=== PATIENT | female | born 1965 | race Caucasian/White ===

== ENCOUNTER 2016-12-09 13:56 | Emergency (ER) | payer MEDICAID ==
[~2016-12-09] VITALS: Wt 64.0 kg
[~2016-12-09 13:56] MED LIST: advil
[2016-12-09] MEDS ORDERED: traMADol 50 MG TAB PO ONE (18:00)
--- NOTE | 2016-12-09 19:14 | RADRPT ---
PROCEDURE: XR Lumbar Spine. CLINICAL INDICATION: Low back pain. TECHNIQUE: AP, cone-down lateral, and lateral views of the lumbar spine were obtained. COMPARISON: None. FINDINGS: Mineralization is within normal limits. Vertebral bodies are normal in height. No fracture is iden tified. Grade II spondylolisthesis related to L5 pars interarticularis defects is seen at the L5-S1 . The posterior vertebral body margin offset of L5 relative to S1 is estimated at 14 mm. The inter vertebral discs are normal in height except for L5-S1 which is severely narrowed and has endplate sc lerosis. Paraspinal contours are unremarkable. RPTAT:HJJR IMPRESSION: Spondylolytic grade II spondylolisthesis of L5-S1 with severe disk space narrowing and endplate scle rosis at this level. Physician Piedad Date Time Electronically viewed and signed by Physician Piedad on 12/09/2016 19:14 /
--- NOTE | 2016-12-09 19:15 | RADRPT ---
PROCEDURE: XR bilateral hips. CLINICAL INDICATION: back pain TECHNIQUE: AP and frog lateral views of both hips were performed. COMPARISON: None. FINDINGS: There is normal mineralization and alignment. No acute fracture or osseous lesion is identified. There are no significant degenerative changes in the hip. The soft tissues are unremarkable. RPTAT:HJJR IMPRESSION: Unremarkable bilateral hip series. Physician Piedad Date Time Electronically viewed and signed by Physician Piedad on 12/09/2016 19:15 JR/
[2016-12-09] MEDS ORDERED: TRAM50TA2 PO (19:56)
[2016-12-09] MEDS ORDERED: CYCL-319 PO (19:56)
[2016-12-09] MEDS ORDERED: IBUP-1542 PO (19:57)
[2016-12-09 20:18] VITALS: BP 152/70; PULSE 79; RESP 20; TEMP 98.1
--- NOTE | 2016-12-10 07:55 | ERD ---
ER Documentation Chief Complaint Date/Time DATE: 12/10/16 TIME: 07:40 Chief Complaint LOW BACK PAIN FROM A FALL IN SEP. NO RECENT INJURY . NO NEURO MOTOR DEF HPI Patient is 51 yr old female complaining of low back pain s/p fall in September 2016. Pt slipped and fell on her back and hips. No loss of consciousness occurred. Low back pain is radiating to her right thigh and is illicited upon ambulation. Pt states that there is a "bump" on her lower back. Pt denies any dysuria, urinary or bowel incontinence. Denies any paresthesia on the lower extremities. Denies any fever, chest pain, shortness of breath. Pt is taking motrin for symptom relief. ROS All systems reviewed and are negative except as per history of present illness. Medications Home Meds Active Scripts Ibuprofen* (Motrin*) 600 Mg Tab, 600 MG PO Q6H Y for PAIN AND OR ELEVATED TEMP, #30 TAB Prov:ERICA OROPEZA 12/09/16 Cyclobenzaprine Hcl* (Cyclobenzaprine Hcl*) 10 Mg Tablet, 10 MG PO TID, #15 TAB Prov:ERICA OROPEZA 12/09/16 Tramadol HCl (Tramadol HCl) 50 Mg Tablet, 50 MG PO Q6 Y for PAIN, #20 TAB Prov:ERICA OROPEZA 12/09/16 Reported Medications [advil] No Conflict Check 02/11/11 Allergies Allergies: Coded Allergies: No Known Allergies (Verified Allergy, Mild, 08/30/14) PMhx/Soc History of Surgery: Yes (C SECTION) Anesthesia Reaction: No Hx Neurological Disorder: No Hx Respiratory Disorders: No Hx Cardiac Disorders: Yes (HTN) Hx Psychiatric Problems: No Hx Miscellaneous Medical Probl: Yes (DM) Hx Alcohol Use: No Hx Substance Use: No Hx Tobacco Use: No Physical Exam Vitals Vital Signs Date Time Temp Pulse Resp B/P Pulse Ox O2 Delivery O2 Flow Rate FiO2 12/09/16 20:18 98.1 79 20 152/70 98 Room Air 12/09/16 14:01 98.8 99 20 160/74 97 Physical Exam Physical Exam CONST: Well-developed, well-nourished, in no acute distress. Nontoxic in appearance. HEENT: Atraumatic. Normal conjunctiva. EOM intact. TM intact. External ear is normal. Clear oropharnyx without erythema. No uvular deviation. Moist mucous membranes. Supple neck. No meningismus. No submandibular induration. RESP: Clear to auscultation bilaterally. No wheezing. CARDIO: Regular rate and rhythm, no murmurs. ABD: Soft, non tender, non distended. Normal bowel sounds. No McBurney's point tenderness. No guarding or rigidity. No peritoneal signs. SKIN: No petechiae or rashes. BACK: There is a bulge on lumbar vertebrae that is tender upon palpation. Decreased lumbar flexion due to pain. EXT: No cyanosis or edema. Distal pulses equal and bilateral. Motor strength +5. NEURO: Awake and alert, appropriate for age. Results 24 hrs Current Medications Medications (Trade) Dose Ordered Sig/Kofi Route PRN Reason Start Time Stop Time Status Last Admin Dose Admin Tramadol HCl (Ultram) 50 mg ONCE ONCE PO 12/09/16 18:00 12/09/16 18:01 DC 12/09/16 17:58 PROCEDURE: XR bilateral hips. CLINICAL INDICATION: back pain TECHNIQUE: AP and frog lateral views of both hips were performed. COMPARISON: None. FINDINGS: There is normal mineralization and alignment. No acute fracture or osseous lesion is identified. There are no significant degenerative changes in the hip. The soft tissues are unremarkable. RPTAT:HJJR IMPRESSION: Unremarkable bilateral hip series. Physician Piedad Date Time Electronically viewed and signed by Arsen Martinez Physician on 12/09/2016 19:15 PROCEDURE: XR Lumbar Spine. CLINICAL INDICATION: Low back pain. TECHNIQUE: AP, cone-down lateral, and lateral views of the lumbar spine were obtained. COMPARISON: None. FINDINGS: Mineralization is within normal limits. Vertebral bodies are normal in height. No fracture is identified. Grade II spondylolisthesis related to L5 pars interarticularis defects is seen at the L5-S1. The posterior vertebral body margin offset of L5 relative to S1 is estimated at 14 mm. The intervertebral discs are normal in height except for L5-S1 which is severely narrowed and has endplate sclerosis. Paraspinal contours are unremarkable. RPTAT:HJJR IMPRESSION: Spondylolytic grade II spondylolisthesis of L5-S1 with severe disk space narrowing and endplate sclerosis at this level. Physician Piedad Date Time Electronically viewed and signed by Arsen Martinez Physician on 12/09/2016 19:14 Procedures/MDM EMERGENCY DEPARTMENT COURSE/MEDICAL DECISION MAKING This is a 51 yr old female who comes to the emergency room secondary to complaints of lower back pain s/p fall last September. There is a bulge on the lumbar region that is tender upon palpation. Lumbar ROM is limited due to pain. The patient was given ultram in the department. On re-evaluation, the patient's symptoms improved. Hip xr and lumbar xr were done and interpreted by a radiologist. Hip xr is negative for fractures while lumbar xr showed ppondylolytic grade II spondylolisthesis of L5-S1 with severe disk space narrowing and endplate sclerosis at this level. I have discussed lumbar XR result to Dr. Husain and he advised to refer the patient to a physical therapist and an orthopedic MD. My primary diagnosis is low back pain. Secondary diagnosis is sciatica. Differential diagnoses considered but not limited to fracture, cauda equina syndrome, rheumatoid arthritis, osteoporosis. Pt is hemodynamically stable upon reassessment. The patient was discharged for outpatient management with a prescription for ultram, flexeril and ibuprofen. The patient was advised to followup with their PMD in 1-2 days and request for a PT and orthopedic referral. Pt was also advised to return to the Emergency Department if there are any new or worsening symptoms. The patient understood and agreed with the diagnosis, treatment and plan. Patient is stable for discharge at this time. Departure Diagnosis: Primary Impression: Low back pain Chronicity: chronic Back pain laterality: midline Sciatica presence: with sciatica Sciatica laterality: sciatica of right side Qualified Code: M54.41 - Chronic midline low back pain with right-sided sciatica Additional Impression: Sciatica Laterality: right Qualified Code: M54.31 - Sciatica of right side Condition: Stable Patient Instructions: Self-Care for Low Back Pain Referrals: [facility] Usted se rodríguez hecho un examen mdico de control que le indica que no est en sarah condicin que requiera tratamiento urgente en el Departamento de Emergencia. Un estudio ms profundo y el tratamiento de velez condicin pueden esperar sin ningn riesgo hasta que usted sea atendida/o en el consultorio de velez mdico o sarah cl felicitas. Es responsabilidad suya arreglar sarah aníbal para el seguimiento del marcelino. MANEJO DE CONDICIONES NO URGENTES EN EL FUTURO 1) Si usted tiene un mdico de atencin primaria: Usted debera llamar a velez mdico de atencin primaria antes de venir al departamento de emergencia. Despus de las horas de consultorio, velez doctor o velez asociado/a est disponible por telfono. El mdico o enfermero de kehinde en el servicio telefnico puede asesorarle por yessy medio para atender el problema, o marcelino contrario se puede programar sarah aníbal. 2) Si usted no tiene un mdico de atencin primaria: Llame al mdico o clnica de referencia que aparece abajo shantelle las horas de consultorio para hacer sarah aníbal para que le vean. CLINICAS: [facility] [phone] [address] [facility] [phone] [facility] [phone] [place] [id number] [phone] [place] [id number] [phone] [facility] [phone] [address] [facility] () Usted se rodríguez hecho un examen mdico de control que le indica que no est en sarah condicin que requiera tratamiento urgente en el Departamento de Emergencia. Un estudio ms profundo y el tratamiento de velez condicin pueden esperar sin ningn riesgo hasta que usted sea atendida/o en el consultorio de velez mdico o sarah cl felicitas. Es responsabilidad suya arreglar sarah aníbal para el seguimiento del marcelino. MANEJO DE CONDICIONES NO URGENTES EN EL FUTURO 1) Si usted tiene un mdico de atencin primaria: Usted debera llamar a velez mdico de atencin primaria antes de venir al departamento de emergencia. Despus de las horas de consultorio, velez doctor o velez asociado/a est disponible por telfono. El mdico o enfermero de kehinde en el servicio telefnico puede asesorarle por yessy medio para atender el problema, o marcelino contrario se puede programar sarah aníbal. 2) Si usted no tiene un mdico de atencin primaria: Llame al mdico o condado institucions de referencia que aparece abajo shantelle las horas de consultorio para hacer sarah aníbal para que le vean. SI USTED NO PUEDE PAGAR PARA AYANA UN MEDICO puede ir a: [facility] [address] [place] [address] [facility] [address] [place] [address] [facility] [address] [place] [address] [facility] [address] [place] [address] [facility] Care 7 a.m.- 11 p.m. Every Day of the Week NO APPOINTMENT OR AUTHORIZATION NEEDED Additional Instructions: Follow-up with your primary care physician in 1-2 days and request for a physical therapy consult. Return to the emergency department immediately should you have any new or worsening symptoms, uncontrolled fevers, or other unexplained symptoms. Take all medications as directed. ERICA OROPEZA Dec 10, 2016 07:51
== END 2016-12-09 20:19 | disposition home or self-care (01) ==
LOC: FTE 13:56
DX: M54.41 Lumbago with sciatica, right side (principal); I10 Essential (primary) hypertension; E11.9 Type 2 diabetes mellitus without complications
CPT/HCPCS: 72100; 73520; Z7610

== ENCOUNTER 2018-08-09 02:59 | Inpatient (IN) | END 2018-08-26 20:30 | disposition home health service (06) | DRG 853 ==

== ENCOUNTER 2018-08-27 15:17 | Inpatient (IN) | END 2018-09-10 22:55 | disposition home or self-care (01) | DRG 193 ==

== ENCOUNTER 2018-11-12 12:14 | Inpatient (IN) | payer OTHER ==
[~2018-11-12] VITALS: Ht 167.6 cm; Wt 65.0 kg
[~2018-11-12 12:14] MED LIST changes: +AMLO-147 PO; +ASPI-831 PO; +ATOR40TA68 PO; +BUPR150T11 PO; +CARV12.579 PO; +CLOP75TA28 PO; +ENOX30DI2 SC; +HYDR-3672 PO; +LISI-471 PO; +MONT10TA24 PO; +NEED-135 MC; +TRAM50TA2 PO; -advil
[2018-11-12 12:44] VITALS: Ht 167.6 cm; Wt 65.0 kg
[2018-11-12] MEDS ORDERED: FAMO-96 PO (16:07)
[2018-11-12] MEDS ORDERED: LEVO250T9 PO (16:07)
[2018-11-12] MEDS ORDERED: SUCR1TAB56 PO (16:08)
[2018-11-12] MEDS ORDERED: ZINC220C5 PO (16:08)
[2018-11-12] MEDS ORDERED: ONDA4TAB8 PO (16:09)
[2018-11-12] MEDS ORDERED: POLY17PO6 PO (16:09)
[2018-11-12] MEDS ORDERED: ASC500 PO (16:09)
[2018-11-12] MEDS ORDERED: AMIN30LI PO (16:10)
[2018-11-12] MEDS ORDERED: ENOX40DI14 SC (16:11)
[2018-11-12] MEDS ORDERED: MULT-105 PO (16:11)
[2018-11-12] MEDS ORDERED: LANT3I SC (16:12)
[2018-11-12] MEDS ORDERED: NOVO3I SC (16:12)
[2018-11-12] MEDS ORDERED: ONDANSETRON 4 MG INJ IV STA (16:21)
[2018-11-12] MEDS ORDERED: SOD CHLORIDE 0.9% 500 ML IV ONE (16:30)
[2018-11-12] MEDS ORDERED: VANCOMYCIN 1 GM (PMX) 250 ML IVPB STA (20:02)
[2018-11-12] MEDS ORDERED: CEFEPIME 1GM/50 ML (PMX) 50 ML IVPB STA (20:02)
--- NOTE | 2018-11-12 20:13 | ERD ---
ER Documentation Chief Complaint Chief Complaint ON AND OFF VOMITTING X 3 WEEKS; DENIES ABDOMINAL PAIN HPI This is a 53-year-old female with a past medical history of hypertension, hyperlipidemia, CHF, diabetes, COPD, chronic osteomyelitis with left lower extremity diabetic ulcers requiring previous debridement, now presenting from the wound care clinic for evaluation of the wounds. The patient is also here for evaluation of waxing and waning vomiting over the last 3 weeks. The patient does not currently feel nauseated, but she has had episodes of nausea at home. The patient denies abdominal pain. The patient denies changes to bowel movements or urination. The patient has been on multiple medications and multiple antibiotics over the last 3 weeks, and the patient and family are not sure if this could be related. The patient had her wounds dressed in the clinic and then sent down for further evaluation. The patient denies feeling sick recently. The patient denies fever or chills. The patient has had no headache or vision changes. The patient does not endorse neck or back pain. The patient denies lightheadedness or dizziness. The patient has had no chest pain or trouble breathing. The patient has had no focal deficits. The patient has had no weakness or numbness or tingling to the face or extremities. ROS All systems reviewed and are negative except as per history of present illness. Medications Home Meds Active Scripts Bupropion Hcl (Bupropion Hcl SR) 150 Mg Tablet.sa, 150 MG PO BID for 11 Days Prov:ERNESTINE KELLOGG MD 10/27/18 Carvedilol* (Carvedilol*) 12.5 Mg Tablet, 12.5 MG PO BID for 14 Days, TAB Prov:ERNESTINE KELLOGG MD 10/27/18 Lisinopril* (Lisinopril*) 20 Mg Tablet, 20 MG PO DAILY for 11 Days, TAB Prov:ERNESTINE KELLOGG MD 10/27/18 Montelukast Sodium* (Montelukast Sodium*) 10 Mg Tablet, 10 MG PO HS for 30 Days, #30 TAB 6 Refills Prov:ERNESTINE KELLOGG MD 10/27/18 Aspirin (Aspirin) 81 Mg Chew, 81 MG PO DAILY for 30 Days, #30 TAB 6 Refills Prov:SANCHEZ ANDERSON MD 08/26/18 Hydralazine Hcl* (Apresoline*) 50 Mg Tab, 75 MG PO TID for 30 Days, #90 TAB 6 Refills Prov:SANCHEZ ANDERSON MD 08/26/18 Atorvastatin* (Atorvastatin*) 40 Mg Tablet, 40 MG PO HS for 30 Days, #30 TAB 6 Refills Prov:SANCHEZ ANDERSON MD 08/26/18 Clopidogrel Bisulfate (Clopidogrel) 75 Mg Tablet, 75 MG PO DAILY for 30 Days, #30 TAB 6 Refills Prov:SANCHEZ ANDERSON MD 08/26/18 Reported Medications Insulin Glargine* (Lantus*) 100 Unit/Ml Soln, 24 UNIT SC QHS, #1 VIAL 11/12/18 Insulin Aspart* (Novolog Insulin Pen*) 100 Unit/Ml Soln, 8 UNIT SC WITH MEALS, EA 11/12/18 Multivitamin with Minerals (Multivitamins with Minerals) 1 Each Tablet, 1 EACH PO DAILY, TAB 11/12/18 Enoxaparin Sodium* (Lovenox*) 40 Mg/0.4 Ml Syringe, 40 MG SC DAILY, SYR 11/12/18 Amino Acids/Protein Hydrolys (PRO-STAT LIQUID) 30 Ml Liquid.pkt, 30 ML PO DAILY for SUGAR FREE 11/12/18 Ondansetron Hcl* (Zofran*) 4 Mg Tablet, 4 MG PO Q6H PRN for NAUSEA AND OR VOMITING, TAB 11/12/18 Polyethylene Glycol* (Miralax*) 17 Gm Powd.pack, 17 GM PO BID, #60 PACKET 11/12/18 Ascorbic Acid (Vitamin C) 500 Mg Tab, 500 MG PO DAILY, TAB 11/12/18 Zinc Sulfate* (Zinc Sulfate*) 220 Mg Cap, 220 MG PO DAILY, CAP 11/12/18 Sucralfate* (Carafate*) 1 Gm Tab, 1 GM PO AC MEALS AND BEDTIME, TAB 11/12/18 Famotidine* (Pepcid*) 20 Mg Tablet, 20 MG PO DAILY, #30 TAB 11/12/18 Levofloxacin* (Levofloxacin*) 250 Mg Tablet, 250 MG PO DAILY for END DATE 11/20/18, TAB 11/12/18 Amlodipine Besylate* (Amlodipine Besylate*) 10 Mg Tablet, 10 MG PO DAILY, #30 TAB 10/05/18 Discontinued Scripts Enoxaparin Sodium* (Enoxaparin Sodium*) 30 Mg/0.3 Ml Syringe, 30 MG SC DAILY for 14 Days Prov:ERNESTINE KELLOGG MD 10/27/18 [place], Insulin Disposable (Fidelia Pen Needle) 1 Each Dis.needle, EACH [facility] MEALS AND BEDTIME for diabetes mellitus, #120 6 Refills Prov:SANCHEZ ANDERSON MD 08/26/18 Tramadol HCl (Tramadol HCl) 50 Mg Tablet, 50 MG PO Q6 PRN for PAIN, #20 TAB Prov:ERICA OROPEZA 12/09/16 Allergies Allergies: Coded Allergies: No Known Allergies (Verified Allergy, Mild, 11/12/18) PMhx/Soc History of Surgery: Yes (debridement to left lower ext) Anesthesia Reaction: No Hx Neurological Disorder: No Hx Respiratory Disorders: Yes ( COPD) Hx Cardiac Disorders: Yes (Hypertension, hyperlipidemia, diabetes, CHF) Hx Psychiatric Problems: No Hx Miscellaneous Medical Probl: No Hx Alcohol Use: No Hx Substance Use: No Hx Tobacco Use: No Smoking Status: Never smoker FmHx Family History: diabetes Physical Exam Vitals Vital Signs Date Temp Pulse Resp B/P (MAP) Pulse Ox O2 O2 Flow FiO2 Time Delivery Rate 11/12/18 78 14 168/78 98 Room Air 18:40 (108) 11/12/18 98.1 69 20 165/77 100 Room Air 17:59 (106) 11/12/18 96.7 60 24 144/75 95 12:44 (98) Physical Exam Const: No apparent distress, well-developed, well-nourished Head: Normocephalic, Atraumatic Eyes: Normal Conjunctiva. Extraocular movements intact. Pupils equal, round and reactive to light ENT: Normal External Ears, Nose and Mouth. Neck: Full range of motion. No meningismus. Resp: Clear to auscultation bilaterally, No wheezes, rales or rhonchi Cardio: Regular rate and rhythm. No murmurs, rubs or gallops Abd: Soft, non tender, non distended. Normal bowel sounds Skin: No petechiae or rashes Back: No midline tenderness. No CVA tenderness Ext: No cyanosis. Diabetic ulcers to the left foot. Bilateral lower extremity 1+ pitting edema. Neur: Awake and alert, oriented 4. Cranial nerves intact. No facial droop. Normal strength, sensation and coordination. Psych: Normal Mood and Affect Result Diagram: 11/12/18 1535 11/12/18 1535 Results 24 hrs Laboratory Tests Test 11/12/18 15:35 11/12/18 17:40 11/12/18 18:27 White Blood Count 6.7 10^3/ul Red Blood Count 4.39 10^6/ul Hemoglobin 12.2 g/dl Hematocrit 37.8 % Mean Corpuscular Volume 86.1 fl Mean Corpuscular Hemoglobin 27.8 pg Mean Corpuscular 32.3 g/dl Hemoglobin Concent Red Cell Distribution Width 13.3 % Platelet Count 235 10^3/UL Mean Platelet Volume 11.3 fl Immature Granulocytes % 0.300 % Neutrophils % 75.9 % Lymphocytes % 17.1 % Monocytes % 5.7 % Eosinophils % 0.7 % Basophils % 0.3 % Nucleated Red Blood Cells % 0.0 /100WBC Immature Granulocytes # 0.020 10^3/ul Neutrophils # 5.1 10^3/ul Lymphocytes # 1.1 10^3/ul Monocytes # 0.4 10^3/ul Eosinophils # 0.1 10^3/ul Basophils # 0.0 10^3/ul Nucleated Red Blood Cells # 0.0 10^3/ul Sodium Level 140 mmol/L Potassium Level 3.1 mmol/L Chloride Level 103 mmol/L Carbon Dioxide Level 30 mmol/L Anion Gap 7 Blood Urea Nitrogen 15 mg/dl Creatinine 1.25 mg/dl Est Glomerular Filtrat 44 mL/min Rate mL/min Glucose Level 135 mg/dl Calcium Level 8.9 mg/dl Total Bilirubin 0.2 mg/dl Direct Bilirubin 0.00 mg/dl Indirect Bilirubin 0.2 mg/dl Aspartate Amino 17 IU/L Transf (AST/SGOT) Alanine 16 IU/L Aminotransferase (ALT/SGPT) Alkaline Phosphatase 182 IU/L Troponin I < 0.012 ng/ml Total Protein 6.9 g/dl Albumin 3.2 g/dl Globulin 3.70 g/dl Albumin/Globulin Ratio 0.86 Lipase 29 U/L Urine Color YELLOW Urine Clarity SLIGHTLY CLOUDY Urine pH 6.0 Urine Specific [place] 1.013 Urine Ketones NEGATIVE mg/dL Urine Nitrite NEGATIVE mg/dL Urine Bilirubin NEGATIVE mg/dL Urine Urobilinogen NEGATIVE mg/dL Urine Leukocyte Esterase TRACE Radha/ul Urine Microscopic RBC 9 /HPF Urine Microscopic WBC 11 /HPF Urine Squamous Epithelial Cells MODERATE /HPF Urine Yeast (Budding) FEW /HPF Urine Hemoglobin NEGATIVE mg/dL Urine Glucose 1+ mg/dL Urine Total Protein 3+ mg/dl C-Reactive Protein 0.6 mg/dl Current Medications Medications Dose Sig/Kofi Start Time Status Last (Trade) Ordered Route PRN Stop Time Admin Dose Reason Admin Sodium 500 ml @ Q1H ONCE 11/12/18 DC 11/12/18 Chloride 500 mls/hr IV 16:30 16:58 11/12/18 17:29 Ondansetron 4 mg ONCE STAT 11/12/18 DC 11/12/18 HCl (Zofran IV 16:21 16:57 Inj) 11/12/18 16:50 Vancomycin 250 ml @ ONCE STAT 11/12/18 HCl 125 mls/hr IVPB 20:02 11/12/18 22:01 Cefepime HCl 50 ml @ ONCE STAT 11/12/18 DC 11/12/18 100 mls/hr IVPB 20:02 20:16 11/12/18 20:31 Ondansetron 4 mg BRIDGE ORDER 11/12/18 HCl (Zofran PRN IV 20:30 Inj) NAUSEA/VOMITI 11/13/18 20:29 NG 650 mg ER BRIDGE 11/12/18 Acetaminophen PRN PO 20:30 (Tylenol .MILD PAIN 11/13/18 20:29 Tab) 1-3 OR TEMP Procedures/MDM MDM The patient's presentation warrants further investigation. Previous medical records, if available, were reviewed. LABS The patient's laboratory testing was obtained and reviewed. No emergent treatment was required unless described below. CBC: No E/o of systemic infection or severe anemia or thrombocytopenia CMP: No E/o severe acidosis or alkalosis or renal failure or diabetic ketoacidosis. Mild hypokalemia, nonemergent. Elevated alkaline phosphatase, likely reactive, otherwise no liver disease. Lipase: No E/o pancreatitis Troponin: No E/o acute ischemia Urine: E/o acute infection with hematuria CRP: Unremarkable EKG EKG read by me: Rate/Rhythm: Regular rate and rhythm at a rate of 75 bpm Intervals: Normal [place]: Right axis deviation Impression: No evidence of acute ischemia or arrhythmia IMAGING Imaging and Radiology interpretation reviewed. CXR FINDINGS: Mild central venous congestion with bibasilar atelectasis and small right pleural effusion. No pneumothorax. Mild cardiomegaly. Right upper extremity PICC line tip is over the cavoatrial junction. Calcified atherosclerosis of the thoracic aorta. IMPRESSION: Cardiomegaly with mild central venous congestion and small right pleural effusion. Right upper extremity PICC line is in good position. Electronically viewed and signed by Physician Kwesi on 11/12/2018 17:17 XR R Foot 1. Suspected bipartite medial sesamoid bone for the great toe. Recommend correlation with point tenderness to rule out acute fracture of the sesamoid bone. No other evidence of acute fracture is identified in the foot. 2. Mild osteoarthritis of the first MTP joint and mild soft tissue swelling. Electronically viewed and signed by Mariusz Campbell Physician on 11/12/2018 17:02 XR L Foot IMPRESSION: Findings suggesting osteomyelitis at the fifth MTP joint with overlying soft tissue wound/ulcer. Question early osteomyelitis at the first MTP joint with overlying soft tissue wound/ulcer. Erosive changes at the midfoot with midfoot collapse, widening of the Lisfranc interval, and fixation pins. Findings may be partially due to neuropathic arthropathy, however suspect superimposed osteomyelitis given the overlying dorsal wound/ulcer. Electronically viewed and signed by Physician Kwesi on 11/12/2018 17:17 TREATMENT/DISPOSITION The patient presents with chronic but progressively worsening osteomyelitis of the left foot. I spoke with the patient's dental specialist, Dr. Garcia, who recommended admission for IV antibiotics and likely redebridement of the wounds. The patient was treated with vancomycin and cefepime in the emergency department. The patient does not have evidence of sepsis and I do not feel the patient requires a full septic workup. The patient does have evidence of urinary tract infection which will be covered by the broad-spectrum antibiotics initiated for her osteomyelitis. The patient was worked up for his persistent nausea and vomiting. The patient did not vomit in the emergency department. She was given IV fluids and a dose of Zofran in the ER. A urinary tract infection is a possible etiology for this. The patient's workup is otherwise reassuring. I do not see any metabolic etiologies. I do not see evidence of a cardiovascular pathology. I do not suspect a neurologic pathology. The patient is not dizzy. I have low suspicion for vertigo. ADMISSION At this time, I feel that the patient requires admission for further evaluation and management. The patient will be admitted to panel in accordance with the patient's insurance. The patient was accepted by Dr. Medellin at 8:10 PM on November 12, 2018. Dr. Garcia was called to discuss the case. He or his partner will see the patient in the hospital for likely debridement. Disclaimer: Inadvertent spelling and grammatical errors are likely due to EHR/dictation software use and do not reflect on the overall quality of patient care. Note that the electronic time recorded on this note does not necessarily reflect the actual time of the patient encounter. Departure Diagnosis: Primary Impression: Chronic osteomyelitis involving left ankle and foot Additional Impressions: Urinary tract infection Urinary tract infection type: acute cystitis Hematuria presence: with hematuria Qualified Codes: N30.01 - Acute cystitis with hematuria Hypokalemia Elevated alkaline phosphatase level Nausea & vomiting Vomiting type: unspecified Vomiting Intractability: non-intractable Qualified Codes: R11.2 - Nausea with vomiting, unspecified Condition: MACIEL Samuel MD Nov 12, 2018 20:13
[2018-11-12] MEDS ORDERED: ONDANSETRON 4 MG INJ IV PRN (20:30)
[2018-11-12] MEDS ORDERED: ACETAMINOPHEN 325 MG TAB PO PRN ×2 (20:30→22:00)
[2018-11-12] MEDS ORDERED: HYDROCODONE/APAP (5/325) TAB PO PRN (22:00)
[2018-11-12] MEDS ORDERED: NACL 0.9% 3 ML SYG IV SCH (22:00)
[2018-11-12] MEDS ORDERED: VANCOMYCIN IV PER PHARMACY XX SCH (22:00)
[2018-11-12] MEDS ORDERED: POTASSIUM CHLORIDE 20 MEQ POWDER FOR ORAL SOLN PO ONE (22:00)
--- NOTE | 2018-11-12 22:44 | HP ---
Date/Time of Note Date/Time of Note DATE: 11/12/18 TIME: 22:44 Assessment/Plan VTE Prophylaxis Pharmacological prophylaxis: other Lines/Catheters IV Catheter Type (from Nrs): PICC Line Central line still needed: Yes Assessment/Plan Hospital Course Objective Physical exam General: Patient is laying in bed and answers questions appropriately Mentation: Patient is alert and oriented 4, Head: Normocephalic atraumatic Eyes: EOMI, pupils reactive to light Neck: Supple, nontender, midline Respiratory: Clear to auscultation bilaterally Cardiovascular: regular rate, no obvious murmurs Gastrointestinal: non-tender to palpation, bowel sounds heard. Neurological: Moves all extremities spontaneously Skin: Left foot bandaged, CDI Assessment and plan Chronic osteomyelitis -IV antibiotic -Podiatry to see patient tomorrow, per ER physician, planning on OR debridement -N.p.o. after midnight, hold aspirin Plavix for surgery -IV fluids - Nausea -Intermittent, patient states this happens in the morning, -Protonix -Zofran as needed -Reassess need of possible GI evaluation in the a.m. per day team Dyslipidemia -Resume home meds when able Peripheral arterial disease -Continue home meds when able, hold aspirin and Plavix for now due to possible impending surgery Hypertension -Continue home meds when able Diabetes mellitus -Insulin Disposition -Podiatry to perform debridement in OR, reassess complaint of intermittent nausea in the a.m. Result Diagram: 11/12/18 1535 11/12/18 1535 Results 24hrs Laboratory Tests Test 11/12/18 15:35 11/12/18 17:40 11/12/18 18:27 White Blood Count 6.7 # Red Blood Count 4.39 # Hemoglobin 12.2 # Hematocrit 37.8 # Mean Corpuscular Volume 86.1 Mean Corpuscular Hemoglobin 27.8 L Mean Corpuscular 32.3 Hemoglobin Concent Red Cell Distribution Width 13.3 Platelet Count 235 Mean Platelet Volume 11.3 H Immature Granulocytes % 0.300 Neutrophils % 75.9 Lymphocytes % 17.1 Monocytes % 5.7 Eosinophils % 0.7 Basophils % 0.3 Nucleated Red Blood Cells % 0.0 Immature Granulocytes # 0.020 Neutrophils # 5.1 Lymphocytes # 1.1 Monocytes # 0.4 Eosinophils # 0.1 Basophils # 0.0 Nucleated Red Blood Cells # 0.0 Sodium Level 140 Potassium Level 3.1 L Chloride Level 103 Carbon Dioxide Level 30 Anion Gap 7 Blood Urea Nitrogen 15 Creatinine 1.25 H Est Glomerular Filtrat 44 L Rate mL/min Glucose Level 135 Calcium Level 8.9 Total Bilirubin 0.2 Direct Bilirubin 0.00 Indirect Bilirubin 0.2 Aspartate Amino 17 Transf (AST/SGOT) Alanine 16 Aminotransferase (ALT/SGPT) Alkaline Phosphatase 182 H Troponin I < 0.012 Total Protein 6.9 Albumin 3.2 L Globulin 3.70 H Albumin/Globulin Ratio 0.86 Lipase 29 Urine Color YELLOW Urine Clarity SLIGHTLY CLOUDY A Urine pH 6.0 Urine Specific [place] 1.013 Urine Ketones NEGATIVE Urine Nitrite NEGATIVE Urine Bilirubin NEGATIVE Urine Urobilinogen NEGATIVE Urine Leukocyte Esterase TRACE A Urine Microscopic RBC 9 H Urine Microscopic WBC 11 H Urine Squamous MODERATE Epithelial Cells Urine Yeast (Budding) FEW A Urine Hemoglobin NEGATIVE Urine Glucose 1+ H Urine Total Protein 3+ H Erythrocyte Sedimentation Rate 25 C-Reactive Protein 0.6 HPI/ROS Admit Date/Time Admit Date/Time Hx of Present Illness Patient is a female with a past medical history significant for chronic osteomyelitis, diabetes, questionable CHF, peripheral vascular disease, hypertension who presents to [facility] after being sent by her paper handler, for further debridement in the OR. Further inquiry resulted in patient stating that she has morning nausea for approximately the past 3 weeks, currently no nausea or vomiting. Patient has no acute complaints except for chronic discomfort and some pain in her chronic lower left lower extremity wound. Patient denies chest pain, shortness of breath, dizziness, nausea, vomiting, abdominal pain PMH/Family/Social Past Medical History Medications Current Medications Ondansetron HCl (Zofran Inj) 4 mg BRIDGE ORDER PRN IV NAUSEA/VOMITING; Start 11/12/18 at 20:30; Stop 11/13/18 at 20:29 Acetaminophen (Tylenol Tab) 650 mg ER BRIDGE PRN PO .MILD PAIN 1-3 OR TEMP; Start 11/12/18 at 20:30; Stop 11/13/18 at 20:29 Cefepime HCl 50 ml @ 100 mls/hr Q12 IVPB ; Start 11/13/18 at 09:00 Vancomycin HCl (Vanco Iv Per Pharmacy) VANCOMYCIN PER PHARMACY PER PROTOCOL XX ; Start 11/12/18 at 22:00 Amlodipine Besylate (Norvasc) 10 mg DAILY PO ; Start 11/13/18 at 09:00 Ascorbic Acid (Vitamin C) 500 mg DAILY PO ; Start 11/13/18 at 09:00 Atorvastatin Calcium (Lipitor) 40 mg HS PO ; Start 11/13/18 at 21:00 Carvedilol (Coreg) 12.5 mg BID PO ; Start 11/12/18 at 22:00 Famotidine (Pepcid) 20 mg DAILY PO ; Start 11/13/18 at 09:00 Hydralazine HCl (Apresoline) 75 mg TID PO ; Start 11/13/18 at 09:00 Lisinopril (Zestril) 20 mg DAILY PO ; Start 11/13/18 at 09:00 Montelukast Sodium (Singulair) 10 mg HS PO ; Start 11/13/18 at 21:00 Sodium Chloride 1,000 ml @ 50 mls/hr Q20H IV ; Start 11/12/18 at 22:00 IV Flush (NS 3 ml) 3 ml PER PROTOCOL IV ; Start 11/12/18 at 22:00 Ondansetron HCl (Zofran Inj) 4 mg Q6H PRN IV NAUSEA/VOMITING; Start 11/12/18 at 22:00 Acetaminophen (Tylenol Tab) 650 mg Q6H PRN PO .PAIN 1-3 OR TEMP; Start 11/12/18 at 22:00 Acetaminophen/ Hydrocodone Bitart ([place] (5/325)) 1 tab Q6H PRN PO .PAIN 4-6; Start 11/12/18 at 22:00 Morphine Sulfate (morphine) 2 mg Q4H PRN IV .PAIN 7-10; Start 11/12/18 at 22:00 Vancomycin/Sodium Chloride 250 ml @ 125 mls/hr Q12H IVPB ; Start 11/13/18 at 09:00 Coded Allergies: No Known Allergies (Verified Allergy, Mild, 11/12/18) Past Surgical History Past Surgical Hx: other Family History Significant Family History: no pertinent family hx Social History Smoking Status: Never smoker Exam/Review of Systems Vital Signs Vitals Vital Signs Date Temp Pulse Resp B/P (MAP) Pulse Ox O2 O2 Flow FiO2 Time Delivery Rate 11/12/18 90 16 160/84 98 Room Air 20:40 (109) 11/12/18 98.1 17:59 DIGNA ANDRADE Nov 12, 2018 22:44
[2018-11-12] MEDS: SOD CHLORIDE 0.9% 1,000 ML IV SCH (22:48)
[2018-11-12] MEDS ORDERED: PANTOPRAZOLE 40 MG INJ IV ONE (23:00)
[2018-11-13] VITALS (19 sets, daily range): BP systolic 139–169; BP diastolic 74–86; PULSE 72–82; RESP 13–19
[2018-11-13] MEDS ORDERED: LABETALOL HCL 20MG INJ IV ONE
[2018-11-13] MEDS ORDERED: ACCU-CHEK XX SCH (02:00)
[2018-11-13] MEDS ORDERED: Insulin NOVOLOG SS MILD Algorithm (NPO/TPN/ENTERAL FEEDS) SC SCH (05:00)
[2018-11-13] MEDS ORDERED: INSULIN ASPART [NOVOLOG] 3 ML PEN SC SCH ×3 (05:00→07:30)
[2018-11-13] MEDS: PANTOPRAZOLE 40 MG INJ IV SCH (05:21)
[2018-11-13] MEDS ORDERED: PENDING SANTYL ORDER FOR WOUND CARE XX PRN (06:30)
[2018-11-13] MEDS: Insulin NOVOLOG SS MILD Algorithm (SS with meals and bedtime) SC SCH ×2 (07:30→12:07)
[2018-11-13] MEDS: CEFEPIME 1GM/50 ML (PMX) 50 ML IVPB SCH ×2 (08:05→21:55)
[2018-11-13] MEDS: LISINOPRIL 20 MG TAB PO SCH (08:05)
[2018-11-13] MEDS: ASCORBIC ACID 500 MG TAB PO SCH (08:06)
[2018-11-13] MEDS: AMLODIPINE 10 MG TAB PO SCH (08:06)
[2018-11-13] MEDS ORDERED: FAMOTIDINE 20 MG TAB PO SCH (09:00)
[2018-11-13] MEDS ORDERED: VANCOMYCIN 750 MG (PMX) 250 ML IVPB SCH (09:00)
--- NOTE | 2018-11-13 10:15 | PSY ---
Date/Time of Note Date/Time of Note DATE: 11/13/18 TIME: 10:11 Psychiatric Subjective Eval Subjective Evaluation Chief Complaint: ON AND OFF VOMITTING X 3 WEEKS; DENIES ABDOMINAL PAIN History of present illness Patient is a female with a past medical history of chronic osteom yelitis, diabetes, CHF, peripheral vascular disease and hypertension and debridement. Medical history Problems Medical Problems: (1) Abdominal pain Status: Acute (2) Asthma Status: Chronic (3) Asymptomatic hypertensive urgency Status: Acute (4) Chronic osteomyelitis involving left ankle and foot Status: Acute (5) Deep venous thrombosis of left upper extremity Status: Acute (6) Diabetes Status: Acute (7) Diabetes mellitus type 2 in nonobese Status: Chronic (8) Elevated alkaline phosphatase level Status: Acute (9) Essential hypertension Status: Chronic (10) Foot osteomyelitis, left Status: Acute (11) Hyperglycemia Status: Acute (12) Hypokalemia Status: Acute (13) Hypokalemia Status: Acute (14) Hypoxia Status: Acute (15) Iron deficiency anemia Status: Chronic (16) Line sepsis Status: Acute (17) Low back pain Status: Acute (18) Low back pain Status: Acute (19) Nausea & vomiting Status: Acute (20) Non-STEMI (non-ST elevated myocardial infarction) Status: Acute (21) Noncompliance with medication regimen Status: Acute (22) Pneumonia Status: Acute (23) Sciatica Status: Acute (24) Sciatica Status: Acute (25) Urinary tract infection Status: Acute Allergies: Coded Allergies: No Known Allergies (Verified Allergy, Mild, 11/12/18) Psychiatric Objective Eval Mental Status Examination: Laboratory Results Laboratory Tests Test 11/12/18 15:35 11/12/18 17:40 11/12/18 18:27 11/13/18 05:15 White Blood Count 6.7 10^3/ul Red Blood Count 4.39 10^6/ul Hemoglobin 12.2 g/dl Hematocrit 37.8 % Mean Corpuscular 86.1 fl Volume Mean Corpuscular 27.8 pg Hemoglobin Mean Corpuscular 32.3 g/dl Hemoglobin Concen t Red Cell 13.3 % Distribution Width Platelet Count 235 10^3/UL Mean Platelet 11.3 fl Volume Immature 0.300 % Granulocytes % Neutrophils % 75.9 % Lymphocytes % 17.1 % Monocytes % 5.7 % Eosinophils % 0.7 % Basophils % 0.3 % Nucleated Red 0.0 /100WBC Blood Cells % Immature 0.020 10^3/ul Granulocytes # Neutrophils # 5.1 10^3/ul Lymphocytes # 1.1 10^3/ul Monocytes # 0.4 10^3/ul Eosinophils # 0.1 10^3/ul Basophils # 0.0 10^3/ul Nucleated Red 0.0 10^3/ul Blood Cells # Sodium Level 140 mmol/L Potassium Level 3.1 mmol/L Chloride Level 103 mmol/L Carbon Dioxide 30 mmol/L Level Anion Gap 7 Blood Urea 15 mg/dl Nitrogen Creatinine 1.25 mg/dl Est Glomerular 44 mL/min Filtrat Rate mL/min Glucose Level 135 mg/dl Calcium Level 8.9 mg/dl Total Bilirubin 0.2 mg/dl Direct Bilirubin 0.00 mg/dl Indirect 0.2 mg/dl Bilirubin Aspartate Amino 17 IU/L Transf (AST/SGOT) Alanine 16 IU/L Aminotransferase (ALT/SGPT) Alkaline 182 IU/L Phosphatase Troponin I < 0.012 ng/ml Total Protein 6.9 g/dl Albumin 3.2 g/dl Globulin 3.70 g/dl Albumin/Globulin 0.86 Ratio Lipase 29 U/L Urine Color YELLOW Urine Clarity SLIGHTLY CLOUDY Urine pH 6.0 Urine Specific 1.013 [place] Urine Ketones NEGATIVE mg/dL Urine Nitrite NEGATIVE mg/dL Urine Bilirubin NEGATIVE mg/dL Urine NEGATIVE mg/dL Urobilinogen Urine Leukocyte TRACE Radha/ul Esterase Urine Microscopic 9 /HPF RBC Urine Microscopic 11 /HPF WBC Urine Squamous MODERATE /HPF Epithelial Cells Urine Yeast FEW /HPF (Budding) Urine Hemoglobin NEGATIVE mg/dL Urine Glucose 1+ mg/dL Urine Total 3+ mg/dl Protein Erythrocyte 25 mm/Hr Sedimentation Rate C-Reactive 0.6 mg/dl Protein Bedside Glucose 222 mg/dL Test 11/13/18 06:41 11/13/18 07:54 White Blood Count 6.4 10^3/ul Red Blood Count 3.78 10^6/ul Hemoglobin 10.6 g/dl Hematocrit 33.3 % Mean Corpuscular 88.1 fl Volume Mean Corpuscular 28.0 pg Hemoglobin Mean Corpuscular 31.8 g/dl Hemoglobin Concen t Red Cell 13.3 % Distribution Width Platelet Count 181 10^3/UL Mean Platelet 11.4 fl Volume Immature 0.200 % Granulocytes % Neutrophils % 76.1 % Lymphocytes % 14.0 % Monocytes % 8.2 % Eosinophils % 1.2 % Basophils % 0.3 % Nucleated Red 0.0 /100WBC Blood Cells % Immature 0.010 10^3/ul Granulocytes # Neutrophils # 4.9 10^3/ul Lymphocytes # 0.9 10^3/ul Monocytes # 0.5 10^3/ul Eosinophils # 0.1 10^3/ul Basophils # 0.0 10^3/ul Nucleated Red 0.0 10^3/ul Blood Cells # Sodium Level 142 mmol/L Potassium Level 3.3 mmol/L Chloride Level 107 mmol/L Carbon Dioxide 30 mmol/L Level Anion Gap 5 Blood Urea 16 mg/dl Nitrogen Creatinine 1.10 mg/dl Est Glomerular 52 mL/min Filtrat Rate mL/min Glucose Level 189 mg/dl Hemoglobin A1c 6.1 % Calcium Level 8.3 mg/dl Magnesium Level 1.7 mg/dl Total Bilirubin 0.1 mg/dl Direct Bilirubin 0.00 mg/dl Indirect 0.1 mg/dl Bilirubin Aspartate Amino 13 IU/L Transf (AST/SGOT) Alanine 11 IU/L Aminotransferase (ALT/SGPT) Alkaline 146 IU/L Phosphatase Total Protein 5.7 g/dl Albumin 2.6 g/dl Globulin 3.10 g/dl Albumin/Globulin 0.83 Ratio Bedside Glucose 132 mg/dL ALYSON ZUÑIGA NP Nov 13, 2018 10:14
--- NOTE | 2018-11-13 12:24 | PN ---
Date/Time of Note Date/Time of Note DATE: 11/13/18 TIME: 12:18 Assessment/Plan VTE Prophylaxis Risk score (from Nsg)>0 risk: 4 SCD applied (from Nsg): Yes Pharmacological prophylaxis: other Lines/Catheters IV Catheter Type (from Nrsg): PICC Line Central line still needed: Yes Assessment/Plan Hospital Course S: Patient appears to be more compliant with taking her medicines this morning, seen by psychiatry team earlier today. Waiting to be seen by podiatry team. Objective VS - see below Physical exam General: lying in bed, answers questions appropriately Mentation: Patient is alert and oriented 4, Head: Normocephalic atraumatic Eyes: EOMI, pupils reactive to light Neck: Supple, nontender, midline Respiratory: Clear to auscultation bilaterally Cardiovascular: regular rate, no obvious murmurs Gastrointestinal: non-tender to palpation, bowel sounds heard. Neurological: Moves all extremities spontaneously Skin: Left foot bandaged, CDI Assessment and plan: 53-year-old female with a past medical history of hypertension, hyperlipidemia, CHF, diabetes, COPD, chronic osteomyelitis with left lower extremity diabetic ulcers requiring previous debridement, presenting from the wound care clinic for evaluation of the wounds. # Chronic osteomyelitis -left foot/lower extremity -Continue IV antibiotic, IV fluids -Follow-up final recommendations from podiatry -likely planning on OR debridement -N.p.o. after midnight, hold aspirin Plavix for surgery # Nausea-Intermittent, patient states this appears to happen in the mornings. -For now continue Protonix -Zofran as needed -Reassess need of possible GI evaluation # Dyslipidemia -Resume home meds when able # Peripheral arterial disease -Continue home meds when able, holding aspirin and Plavix for now due to possible impending surgery # Hypertension -presently stable -Continue home meds when able # Diabetes mellitus -Monitor sugars, continue sliding scale insulin Result Diagram: 11/13/18 0641 11/13/18 0641 Results 24hrs Laboratory Tests Test 11/12/18 15:35 11/12/18 17:40 11/12/18 18:27 11/13/18 05:15 White Blood Count 6.7 # Red Blood Count 4.39 # Hemoglobin 12.2 # Hematocrit 37.8 # Mean Corpuscular 86.1 Volume Mean Corpuscular 27.8 L Hemoglobin Mean Corpuscular 32.3 Hemoglobin Concen t Red Cell 13.3 Distribution Width Platelet Count 235 Mean Platelet 11.3 H Volume Immature 0.300 Granulocytes % Neutrophils % 75.9 Lymphocytes % 17.1 Monocytes % 5.7 Eosinophils % 0.7 Basophils % 0.3 Nucleated Red 0.0 Blood Cells % Immature 0.020 Granulocytes # Neutrophils # 5.1 Lymphocytes # 1.1 Monocytes # 0.4 Eosinophils # 0.1 Basophils # 0.0 Nucleated Red 0.0 Blood Cells # Sodium Level 140 Potassium Level 3.1 L Chloride Level 103 Carbon Dioxide 30 Level Anion Gap 7 Blood Urea 15 Nitrogen Creatinine 1.25 H Est Glomerular 44 L Filtrat Rate mL/min Glucose Level 135 Calcium Level 8.9 Total Bilirubin 0.2 Direct Bilirubin 0.00 Indirect 0.2 Bilirubin Aspartate Amino 17 Transf (AST/SGOT) Alanine 16 Aminotransferase (ALT/SGPT) Alkaline 182 H Phosphatase Troponin I < 0.012 Total Protein 6.9 Albumin 3.2 L Globulin 3.70 H Albumin/Globulin 0.86 Ratio Lipase 29 Urine Color YELLOW Urine Clarity SLIGHTLY CLOUDY A Urine pH 6.0 Urine Specific 1.013 [place] Urine Ketones NEGATIVE Urine Nitrite NEGATIVE Urine Bilirubin NEGATIVE Urine NEGATIVE Urobilinogen Urine Leukocyte TRACE A Esterase Urine Microscopic 9 H RBC Urine Microscopic 11 H WBC Urine Squamous MODERATE Epithelial Cells Urine Yeast FEW A (Budding) Urine Hemoglobin NEGATIVE Urine Glucose 1+ H Urine Total 3+ H Protein Erythrocyte 25 Sedimentation Rate C-Reactive 0.6 Protein Bedside Glucose 222 H Test 11/13/18 06:41 11/13/18 07:54 11/13/18 12:04 White Blood Count 6.4 Red Blood Count 3.78 L Hemoglobin 10.6 L Hematocrit 33.3 L Mean Corpuscular 88.1 Volume Mean Corpuscular 28.0 L Hemoglobin Mean Corpuscular 31.8 L Hemoglobin Concen t Red Cell 13.3 Distribution Width Platelet Count 181 # Mean Platelet 11.4 H Volume Immature 0.200 Granulocytes % Neutrophils % 76.1 Lymphocytes % 14.0 L Monocytes % 8.2 Eosinophils % 1.2 Basophils % 0.3 Nucleated Red 0.0 Blood Cells % Immature 0.010 Granulocytes # Neutrophils # 4.9 Lymphocytes # 0.9 Monocytes # 0.5 Eosinophils # 0.1 Basophils # 0.0 Nucleated Red 0.0 Blood Cells # Sodium Level 142 Potassium Level 3.3 L Chloride Level 107 Carbon Dioxide 30 Level Anion Gap 5 Blood Urea 16 Nitrogen Creatinine 1.10 H Est Glomerular 52 L Filtrat Rate mL/min Glucose Level 189 Hemoglobin A1c 6.1 H Calcium Level 8.3 L Magnesium Level 1.7 Total Bilirubin 0.1 L Direct Bilirubin 0.00 Indirect 0.1 Bilirubin Aspartate Amino 13 L Transf (AST/SGOT) Alanine 11 L Aminotransferase (ALT/SGPT) Alkaline 146 H Phosphatase Total Protein 5.7 #L Albumin 2.6 L Globulin 3.10 Albumin/Globulin 0.83 Ratio Bedside Glucose 132 167 Exam/Review of Systems Exam Vitals Vital Signs Date Temp Pulse Resp B/P (MAP) Pulse Ox O2 O2 Flow FiO2 Time Delivery Rate 11/13/18 98.4 81 17 169/80 96 Room Air 07:40 (109) 11/13/18 2.0 00:20 Intake and Output 11/12/18 11/12/18 11/13/18 1515:00 23:00 07:00 IntakeIntake Total 550 ml BalanceBalance 550 ml Results Results 24hrs Laboratory Tests Test 11/12/18 15:35 11/12/18 17:40 11/12/18 18:27 11/13/18 05:15 White Blood Count 6.7 # Red Blood Count 4.39 # Hemoglobin 12.2 # Hematocrit 37.8 # Mean Corpuscular 86.1 Volume Mean Corpuscular 27.8 L Hemoglobin Mean Corpuscular 32.3 Hemoglobin Concen t Red Cell 13.3 Distribution Width Platelet Count 235 Mean Platelet 11.3 H Volume Immature 0.300 Granulocytes % Neutrophils % 75.9 Lymphocytes % 17.1 Monocytes % 5.7 Eosinophils % 0.7 Basophils % 0.3 Nucleated Red 0.0 Blood Cells % Immature 0.020 Granulocytes # Neutrophils # 5.1 Lymphocytes # 1.1 Monocytes # 0.4 Eosinophils # 0.1 Basophils # 0.0 Nucleated Red 0.0 Blood Cells # Sodium Level 140 Potassium Level 3.1 L Chloride Level 103 Carbon Dioxide 30 Level Anion Gap 7 Blood Urea 15 Nitrogen Creatinine 1.25 H Est Glomerular 44 L Filtrat Rate mL/min Glucose Level 135 Calcium Level 8.9 Total Bilirubin 0.2 Direct Bilirubin 0.00 Indirect 0.2 Bilirubin Aspartate Amino 17 Transf (AST/SGOT) Alanine 16 Aminotransferase (ALT/SGPT) Alkaline 182 H Phosphatase Troponin I < 0.012 Total Protein 6.9 Albumin 3.2 L Globulin 3.70 H Albumin/Globulin 0.86 Ratio Lipase 29 Urine Color YELLOW Urine Clarity SLIGHTLY CLOUDY A Urine pH 6.0 Urine Specific 1.013 [place] Urine Ketones NEGATIVE Urine Nitrite NEGATIVE Urine Bilirubin NEGATIVE Urine NEGATIVE Urobilinogen Urine Leukocyte TRACE A Esterase Urine Microscopic 9 H RBC Urine Microscopic 11 H WBC Urine Squamous MODERATE Epithelial Cells Urine Yeast FEW A (Budding) Urine Hemoglobin NEGATIVE Urine Glucose 1+ H Urine Total 3+ H Protein Erythrocyte 25 Sedimentation Rate C-Reactive 0.6 Protein Bedside Glucose 222 H Test 11/13/18 06:41 11/13/18 07:54 11/13/18 12:04 White Blood Count 6.4 Red Blood Count 3.78 L Hemoglobin 10.6 L Hematocrit 33.3 L Mean Corpuscular 88.1 Volume Mean Corpuscular 28.0 L Hemoglobin Mean Corpuscular 31.8 L Hemoglobin Concen t Red Cell 13.3 Distribution Width Platelet Count 181 # Mean Platelet 11.4 H Volume Immature 0.200 Granulocytes % Neutrophils % 76.1 Lymphocytes % 14.0 L Monocytes % 8.2 Eosinophils % 1.2 Basophils % 0.3 Nucleated Red 0.0 Blood Cells % Immature 0.010 Granulocytes # Neutrophils # 4.9 Lymphocytes # 0.9 Monocytes # 0.5 Eosinophils # 0.1 Basophils # 0.0 Nucleated Red 0.0 Blood Cells # Sodium Level 142 Potassium Level 3.3 L Chloride Level 107 Carbon Dioxide 30 Level Anion Gap 5 Blood Urea 16 Nitrogen Creatinine 1.10 H Est Glomerular 52 L Filtrat Rate mL/min Glucose Level 189 Hemoglobin A1c 6.1 H Calcium Level 8.3 L Magnesium Level 1.7 Total Bilirubin 0.1 L Direct Bilirubin 0.00 Indirect 0.1 Bilirubin Aspartate Amino 13 L Transf (AST/SGOT) Alanine 11 L Aminotransferase (ALT/SGPT) Alkaline 146 H Phosphatase Total Protein 5.7 #L Albumin 2.6 L Globulin 3.10 Albumin/Globulin 0.83 Ratio Bedside Glucose 132 167 Medications Medication Current Medications Cefepime HCl 50 ml @ 100 mls/hr Q12 IVPB Last administered on 11/13/18at 08:05; Admin Dose 100 MLS/HR; Start 11/13/18 at 09:00 Vancomycin HCl (Vanco Iv Per Pharmacy) VANCOMYCIN PER PHARMACY PER PROTOCOL XX ; Start 11/12/18 at 22:00 Amlodipine Besylate (Norvasc) 10 mg DAILY PO Last administered on 11/13/18 08:06; Admin Dose 10 MG; Start 11/13/18 at 09:00 Ascorbic Acid (Vitamin C) 500 mg DAILY PO Last administered on 11/13/18 08:06; Admin Dose 500 MG; Start 11/13/18 at 09:00 Atorvastatin Calcium (Lipitor) 40 mg HS PO ; Start 11/13/18 at 21:00 Carvedilol (Coreg) 12.5 mg BID PO Last administered on 11/13/18 08:06; Admin Dose 12.5 MG; Start 11/12/18 at 22:00 Hydralazine HCl (Apresoline) 75 mg TID PO Last administered on 11/13/18 08:06; Admin Dose 75 MG; Start 11/13/18 at 09:00 Lisinopril (Zestril) 20 mg DAILY PO Last administered on 11/13/18 08:05; Admin Dose 20 MG; Start 11/13/18 at 09:00 Montelukast Sodium (Singulair) 10 mg HS PO ; Start 11/13/18 at 21:00 Sodium Chloride 1,000 ml @ 50 mls/hr Q20H IV Last administered on 11/12/18at 22:48; Admin Dose 50 MLS/HR; Start 11/12/18 at 22:00 IV Flush (NS 3 ml) 3 ml PER PROTOCOL IV ; Start 11/12/18 at 22:00 Ondansetron HCl (Zofran Inj) 4 mg Q6H PRN IV NAUSEA/VOMITING; Start 11/12/18 at 22:00 Acetaminophen (Tylenol Tab) 650 mg Q6H PRN PO .PAIN 1-3 OR TEMP; Start 11/12/18 at 22:00 Acetaminophen/ Hydrocodone Bitart ([place] (5/325)) 1 tab Q6H PRN PO .PAIN 4-6; Start 11/12/18 at 22:00 Morphine Sulfate (morphine) 2 mg Q4H PRN IV .PAIN 7-10; Start 11/12/18 at 22:00 Vancomycin/Sodium Chloride 250 ml @ 125 mls/hr Q12H IVPB Last administered on 11/13/18at 08:51; Admin Dose 125 MLS/HR; Start 11/13/18 at 09:00 Diagnostic Test (Pha) (Accu-Chek) 1 ea 02 XX ; Start 11/13/18 at 02:00 Insulin Glargine (Lantus) 18 units DAILY@2000 SC ; Start 11/13/18 at 20:00 Pantoprazole (Protonix Iv) 40 mg DAILY@06 IV Last administered on 11/13/18at 05:21; Admin Dose 40 MG; Start 11/13/18 at 06:00 Hydralazine HCl (Apresoline) 10 mg Q4H PRN IV ELEVATED BLOOD PRESSURE; Start 11/13/18 at 00:00 Miscellaneous Information (Pending [facility] Districtyl Order For Wound Care) This patient rodríguez... PRN PRN XX WOUND CARE; Start 11/13/18 at 06:30 Insulin Aspart (Novolog Insulin Pen) (Adult SC Insulin - Mild Algorithm)... AC MEALS AND BEDTIME SC Last administered on 11/13/18at 12:07; Admin Dose 1 UNIT; Start 11/13/18 at 07:30 Nystatin (Nystatin Powder) 1 applic BID TOP ; Start 11/13/18 at 13:[address] Nov 13, 2018 12:24
[2018-11-13] MEDS: NYSTATIN 30 GM POWDER BTL TOP SCH ×2 (14:07→21:55)
--- NOTE | 2018-11-13 15:08 | CONS ---
Assessment/Plan Assessment/Plan Assessment/Plan (Daily) Left foot chronic osteomyelitis Left foot diabetic ulcer Charcot neuroarthropathy PAD DM2 with peripheral neuropathy Nausea Plan Patient kept NPO and plan for left foot wound debridement application of allograft and wound VAC. Patient had recent angioplasty with posterior tibial artery run off and per vascular she is optimized. Continue with IV abx. IM managing nausea. Patient will likely need staged debridements and future reconstruction of charcot joints. X-rays reviewed no fracture fragments appreciated to the R foot. Consultation Date/Type/Reason Admit Date/Time Date/Time of Note DATE: 11/13/18 TIME: 15:08 Hx of Present Illness 53 y/o F with hx of chronic osteomyelitis, diabetes, questionable CHF, peripheral vascular disease, hypertension. Patient was seen in clinic yesterday for her wounds. She had been having persistent vomiting and was sent to the ER or further work and admitted to the hospital for further management. Patient had noted pain to her right foot and was concerned there was a break. Patient had one of her pins loosened and was removed in clinic. Her left foot ulcerations have been progressing but will be benefit from OR debridement and grafting with wound VAC. denies additional constitutional symptoms. ROS negative except for HPI Past Medical History chronic osteomyelitis, diabetes, questionable CHF, peripheral vascular disease, hypertension Home Meds Active Scripts Bupropion Hcl (Bupropion Hcl SR) 150 Mg Tablet.sa, 150 MG PO BID for 11 Days Prov:ERNESTINE KELLOGG MD 10/27/18 Carvedilol* (Carvedilol*) 12.5 Mg Tablet, 12.5 MG PO BID for 14 Days, TAB Prov:ERNESTINE KELLOGG MD 10/27/18 Lisinopril* (Lisinopril*) 20 Mg Tablet, 20 MG PO DAILY for 11 Days, TAB Prov:ERNESTINE KELLOGG MD 10/27/18 Montelukast Sodium* (Montelukast Sodium*) 10 Mg Tablet, 10 MG PO HS for 30 Days, #30 TAB 6 Refills Prov:ERNESTINE KELLOGG MD 10/27/18 Aspirin (Aspirin) 81 Mg Chew, 81 MG PO DAILY for 30 Days, #30 TAB 6 Refills Prov:SANCHEZ ANDERSON MD 08/26/18 Hydralazine Hcl* (Apresoline*) 50 Mg Tab, 75 MG PO TID for 30 Days, #90 TAB 6 Refills Prov:SANCHEZ ANDERSON MD 08/26/18 Atorvastatin* (Atorvastatin*) 40 Mg Tablet, 40 MG PO HS for 30 Days, #30 TAB 6 Refills Prov:SANCHEZ ANDERSON MD 08/26/18 Clopidogrel Bisulfate (Clopidogrel) 75 Mg Tablet, 75 MG PO DAILY for 30 Days, #30 TAB 6 Refills Prov:SANCHEZ ANDERSON MD 08/26/18 Reported Medications Insulin Glargine* (Lantus*) 100 Unit/Ml Soln, 24 UNIT SC QHS, #1 VIAL 11/12/18 Insulin Aspart* (Novolog Insulin Pen*) 100 Unit/Ml Soln, 8 UNIT SC WITH MEALS, EA 11/12/18 Multivitamin with Minerals (Multivitamins with Minerals) 1 Each Tablet, 1 EACH PO DAILY, TAB 11/12/18 Enoxaparin Sodium* (Lovenox*) 40 Mg/0.4 Ml Syringe, 40 MG SC DAILY, SYR 11/12/18 Amino Acids/Protein Hydrolys (PRO-STAT LIQUID) 30 Ml Liquid.pkt, 30 ML PO DAILY for SUGAR FREE 11/12/18 Ondansetron Hcl* (Zofran*) 4 Mg Tablet, 4 MG PO Q6H PRN for NAUSEA AND OR VOMITING, TAB 11/12/18 Polyethylene Glycol* (Miralax*) 17 Gm Powd.pack, 17 GM PO BID, #60 PACKET 11/12/18 Ascorbic Acid (Vitamin C) 500 Mg Tab, 500 MG PO DAILY, TAB 11/12/18 Zinc Sulfate* (Zinc Sulfate*) 220 Mg Cap, 220 MG PO DAILY, CAP 11/12/18 Sucralfate* (Carafate*) 1 Gm Tab, 1 GM PO AC MEALS AND BEDTIME, TAB 11/12/18 Famotidine* (Pepcid*) 20 Mg Tablet, 20 MG PO DAILY, #30 TAB 11/12/18 Levofloxacin* (Levofloxacin*) 250 Mg Tablet, 250 MG PO DAILY for END DATE 11/20/18, TAB 11/12/18 Amlodipine Besylate* (Amlodipine Besylate*) 10 Mg Tablet, 10 MG PO DAILY, #30 TAB 10/05/18 Discontinued Scripts Enoxaparin Sodium* (Enoxaparin Sodium*) 30 Mg/0.3 Ml Syringe, 30 MG SC DAILY for 14 Days Prov:ERNESTINE KELLOGG MD 10/27/18 [place], Insulin Disposable (Fidelia Pen Needle) 1 Each Dis.needle, EACH MC AC MEALS AND BEDTIME for diabetes mellitus, #120 6 Refills Prov:SANCHEZ ANDERSON MD 08/26/18 Tramadol HCl (Tramadol HCl) 50 Mg Tablet, 50 MG PO Q6 PRN for PAIN, #20 TAB Prov:ERICA OROPEZA 12/09/16 Medications Current Medications Cefepime HCl 50 ml @ 100 mls/hr Q12 IVPB Last administered on 11/13/18at 08:05; Admin Dose 100 MLS/HR; Start 11/13/18 at 09:00 Vancomycin HCl (Vanco Iv Per Pharmacy) VANCOMYCIN PER PHARMACY PER PROTOCOL XX ; Start 11/12/18 at 22:00 Amlodipine Besylate (Norvasc) 10 mg DAILY PO Last administered on 11/13/18at 08:06; Admin Dose 10 MG; Start 11/13/18 at 09:00 Ascorbic Acid (Vitamin C) 500 mg DAILY PO Last administered on 11/13/18at 08:06; Admin Dose 500 MG; Start 11/13/18 at 09:00 Atorvastatin Calcium (Lipitor) 40 mg HS PO ; Start 11/13/18 at 21:00 Carvedilol (Coreg) 12.5 mg BID PO Last administered on 11/13/18at 08:06; Admin Dose 12.5 MG; Start 11/12/18 at 22:00 Hydralazine HCl (Apresoline) 75 mg TID PO Last administered on 11/13/18at 12:34; Admin Dose 75 MG; Start 11/13/18 at 09:00 Lisinopril (Zestril) 20 mg DAILY PO Last administered on 11/13/18at 08:05; Admin Dose 20 MG; Start 11/13/18 at 09:00 Montelukast Sodium (Singulair) 10 mg HS PO ; Start 11/13/18 at 21:00 Sodium Chloride 1,000 ml @ 50 mls/hr Q20H IV Last administered on 11/12/18at 22:48; Admin Dose 50 MLS/HR; Start 11/12/18 at 22:00 IV Flush (NS 3 ml) 3 ml PER PROTOCOL IV ; Start 11/12/18 at 22:00 Ondansetron HCl (Zofran Inj) 4 mg Q6H PRN IV NAUSEA/VOMITING; Start 11/12/18 at 22:00 Acetaminophen (Tylenol Tab) 650 mg Q6H PRN PO .PAIN 1-3 OR TEMP; Start 11/12/18 at 22:00 Acetaminophen/ Hydrocodone Bitart ([place] (5/325)) 1 tab Q6H PRN PO .PAIN 4-6; Start 11/12/18 at 22:00 Morphine Sulfate (morphine) 2 mg Q4H PRN IV .PAIN 7-10; Start 11/12/18 at 22:00 Pantoprazole (Protonix Iv) 40 mg DAILY@06 IV Last administered on 11/13/18at 05:21; Admin Dose 40 MG; Start 11/13/18 at 06:00 Hydralazine HCl (Apresoline) 10 mg Q4H PRN IV ELEVATED BLOOD PRESSURE; Start 11/13/18 at 00:00 Miscellaneous Information (Pending [facility] Order For Wound Care) This patient rodríguez... PRN PRN XX WOUND CARE; Start 11/13/18 at 06:30 Nystatin (Nystatin Powder) 1 applic BID TOP Last administered on 11/13/18at 14:07; Admin Dose 1 APPLIC; Start 11/13/18 at 13:00 Insulin Glargine (Lantus) 12 units DAILY@2000 SC ; Start 11/13/18 at 20:00 Insulin Aspart (Novolog Insulin Pen) NOVOLOG *MILD* ALGORI... Q4 SC ; Start 11/13/18 at 17:00 Vancomycin HCl 1.25 gm/Sodium Chloride 250 ml @ 83.333 mls/ hr Q24H IVPB ; Start 11/14/18 at 09:00 Allergies: Coded Allergies: No Known Allergies (Verified Allergy, Mild, 11/12/18) Past Surgical History previous wound debridements and pinning of left foot. Left lower extremity angiogram with angioplasty Past Surgical Hx: other Social History Smoking Status: Unknown if ever smoked Exam/Review of Systems Exam Vitals Vital Signs Date Temp Pulse Resp B/P (MAP) Pulse Ox O2 O2 Flow FiO2 Time Delivery Rate 11/13/18 99.0 80 16 165/79 94 Room Air 14:20 (107) 11/13/18 2.0 00:20 Intake and Output 11/12/18 11/12/18 11/13/18 1515:00 23:00 07:00 IntakeIntake Total 550 ml BalanceBalance 550 ml Exam Skin temperature gradient warm to warm from proximal leg to distal feet There is CFT less than 3 seconds to the digits Left foot dorsal ulceration 7 x 9 x 0.6cm mixed fibro-granular there is bone exposed Left posterior heel 4 x 5 x 0.5cm with mixed fibrogranular wound some tendon is exposed Left medial 1st metatarsal ulcer 1 x 2 x 0.4cm fibro-granular wound base which probes to bone Left lateral 5th metatarsal ulcer 2 x 3 x 0.7cm fibrotic wound bed with bone exposed, no purulence no proximal streaking to wound sites Two pin sites in place and intact without loosening appreciated. Absent protective sensations Results Result Diagram: 11/13/18 0641 11/13/18 0641 Results 24hrs Laboratory Tests Test 11/12/18 15:35 11/12/18 17:40 11/12/18 18:27 11/13/18 05:15 White Blood Count 6.7 # Red Blood Count 4.39 # Hemoglobin 12.2 # Hematocrit 37.8 # Mean Corpuscular 86.1 Volume Mean Corpuscular 27.8 L Hemoglobin Mean Corpuscular 32.3 Hemoglobin Concen t Red Cell 13.3 Distribution Width Platelet Count 235 Mean Platelet 11.3 H Volume Immature 0.300 Granulocytes % Neutrophils % 75.9 Lymphocytes % 17.1 Monocytes % 5.7 Eosinophils % 0.7 Basophils % 0.3 Nucleated Red 0.0 Blood Cells % Immature 0.020 Granulocytes # Neutrophils # 5.1 Lymphocytes # 1.1 Monocytes # 0.4 Eosinophils # 0.1 Basophils # 0.0 Nucleated Red 0.0 Blood Cells # Sodium Level 140 Potassium Level 3.1 L Chloride Level 103 Carbon Dioxide 30 Level Anion Gap 7 Blood Urea 15 Nitrogen Creatinine 1.25 H Est Glomerular 44 L Filtrat Rate mL/min Glucose Level 135 Calcium Level 8.9 Total Bilirubin 0.2 Direct Bilirubin 0.00 Indirect 0.2 Bilirubin Aspartate Amino 17 Transf (AST/SGOT) Alanine 16 Aminotransferase (ALT/SGPT) Alkaline 182 H Phosphatase Troponin I < 0.012 Total Protein 6.9 Albumin 3.2 L Globulin 3.70 H Albumin/Globulin 0.86 Ratio Lipase 29 Urine Color YELLOW Urine Clarity SLIGHTLY CLOUDY A Urine pH 6.0 Urine Specific 1.013 [place] Urine Ketones NEGATIVE Urine Nitrite NEGATIVE Urine Bilirubin NEGATIVE Urine NEGATIVE Urobilinogen Urine Leukocyte TRACE A Esterase Urine Microscopic 9 H RBC Urine Microscopic 11 H WBC Urine Squamous MODERATE Epithelial Cells Urine Yeast FEW A (Budding) Urine Hemoglobin NEGATIVE Urine Glucose 1+ H Urine Total 3+ H Protein Erythrocyte 25 Sedimentation Rate C-Reactive 0.6 Protein Bedside Glucose 222 H Test 11/13/18 06:41 11/13/18 07:54 11/13/18 12:04 White Blood Count 6.4 Red Blood Count 3.78 L Hemoglobin 10.6 L Hematocrit 33.3 L Mean Corpuscular 88.1 Volume Mean Corpuscular 28.0 L Hemoglobin Mean Corpuscular 31.8 L Hemoglobin Concen t Red Cell 13.3 Distribution Width Platelet Count 181 # Mean Platelet 11.4 H Volume Immature 0.200 Granulocytes % Neutrophils % 76.1 Lymphocytes % 14.0 L Monocytes % 8.2 Eosinophils % 1.2 Basophils % 0.3 Nucleated Red 0.0 Blood Cells % Immature 0.010 Granulocytes # Neutrophils # 4.9 Lymphocytes # 0.9 Monocytes # 0.5 Eosinophils # 0.1 Basophils # 0.0 Nucleated Red 0.0 Blood Cells # Sodium Level 142 Potassium Level 3.3 L Chloride Level 107 Carbon Dioxide 30 Level Anion Gap 5 Blood Urea 16 Nitrogen Creatinine 1.10 H Est Glomerular 52 L Filtrat Rate mL/min Glucose Level 189 Hemoglobin A1c 6.1 H Calcium Level 8.3 L Magnesium Level 1.7 Total Bilirubin 0.1 L Direct Bilirubin 0.00 Indirect 0.1 Bilirubin Aspartate Amino 13 L Transf (AST/SGOT) Alanine 11 L Aminotransferase (ALT/SGPT) Alkaline 146 H Phosphatase Total Protein 5.7 #L Albumin 2.6 L Globulin 3.10 Albumin/Globulin 0.83 Ratio Bedside Glucose 132 167 Medications Medication Current Medications Cefepime HCl 50 ml @ 100 mls/hr Q12 IVPB Last administered on 11/13/18at 08:05; Admin Dose 100 MLS/HR; Start 11/13/18 at 09:00 Vancomycin HCl (Vanco Iv Per Pharmacy) VANCOMYCIN PER PHARMACY PER PROTOCOL XX ; Start 11/12/18 at 22:00 Amlodipine Besylate (Norvasc) 10 mg DAILY PO Last administered on 11/13/18at 08:06; Admin Dose 10 MG; Start 11/13/18 at 09:00 Ascorbic Acid (Vitamin C) 500 mg DAILY PO Last administered on 11/13/18at 08:06; Admin Dose 500 MG; Start 11/13/18 at 09:00 Atorvastatin Calcium (Lipitor) 40 mg HS PO ; Start 11/13/18 at 21:00 Carvedilol (Coreg) 12.5 mg BID PO Last administered on 11/13/18at 08:06; Admin Dose 12.5 MG; Start 11/12/18 at 22:00 Hydralazine HCl (Apresoline) 75 mg TID PO Last administered on 11/13/18at 12:34; Admin Dose 75 MG; Start 11/13/18 at 09:00 Lisinopril (Zestril) 20 mg DAILY PO Last administered on 11/13/18at 08:05; Admin Dose 20 MG; Start 11/13/18 at 09:00 Montelukast Sodium (Singulair) 10 mg HS PO ; Start 11/13/18 at 21:00 Sodium Chloride 1,000 ml @ 50 mls/hr Q20H IV Last administered on 11/12/18at 22:48; Admin Dose 50 MLS/HR; Start 11/12/18 at 22:00 IV Flush (NS 3 ml) 3 ml PER PROTOCOL IV ; Start 11/12/18 at 22:00 Ondansetron HCl (Zofran Inj) 4 mg Q6H PRN IV NAUSEA/VOMITING; Start 11/12/18 at 22:00 Acetaminophen (Tylenol Tab) 650 mg Q6H PRN PO .PAIN 1-3 OR TEMP; Start 11/12/18 at 22:00 Acetaminophen/ Hydrocodone Bitart ([place] (5/325)) 1 tab Q6H PRN PO .PAIN 4-6; Start 11/12/18 at 22:00 Morphine Sulfate (morphine) 2 mg Q4H PRN IV .PAIN 7-10; Start 11/12/18 at 22:00 Pantoprazole (Protonix Iv) 40 mg DAILY@06 IV Last administered on 11/13/18at 05:21; Admin Dose 40 MG; Start 11/13/18 at 06:00 Hydralazine HCl (Apresoline) 10 mg Q4H PRN IV ELEVATED BLOOD PRESSURE; Start 11/13/18 at 00:00 Miscellaneous Information (Pending [facility] Order For Wound Care) This patient rodríguez... PRN PRN XX WOUND CARE; Start 11/13/18 at 06:30 Nystatin (Nystatin Powder) 1 applic BID TOP Last administered on 11/13/18at 14:07; Admin Dose 1 APPLIC; Start 11/13/18 at 13:00 Insulin Glargine (Lantus) 12 units DAILY@2000 SC ; Start 11/13/18 at 20:00 Insulin Aspart (Novolog Insulin Pen) NOVOLOG *MILD* ALGORI... Q4 SC ; Start 11/13/18 at 17:00 Vancomycin HCl 1.25 gm/Sodium Chloride 250 ml @ 83.333 mls/ hr Q24H IVPB ; Start 11/14/18 at 09:00 SHAILA FRIAS DPM Nov 13, 2018 15:08
[2018-11-13] MEDS: INSULIN ASPART [NOVOLOG] 3 ML PEN SC SCH ×2 (16:51→21:00)
[2018-11-13] MEDS: SOD CHLORIDE 0.9% 1,000 ML IV SCH (17:12)
--- NOTE | 2018-11-13 17:30 | PREAC ---
Date/Time of Note Date/Time of Note DATE: 11/13/18 TIME: 17:27 Anesthesia Eval and Record Evaluation Time Pre-Procedure Interview DATE: 11/13/18 TIME: 17:27 Age 53 Sex female NPO: 8 hrs Preoperative diagnosis osteomyelitis on left foot Planned procedure left foot excisional debridement application of skin allograft application of wound vac Past Medical History Past Medical History: Includes Cardio: HTN, Dyslipidemia Endo: Diabetes Surgery & Anesthesia Issues No known issue Meds Anticoagulation: No Beta Sarabjit within 24 hr: Yes Active Scripts Bupropion Hcl (Bupropion Hcl SR) 150 Mg Tablet.sa, 150 MG PO BID for 11 Days Prov:ERNESTINE KELLOGG MD 10/27/18 Carvedilol* (Carvedilol*) 12.5 Mg Tablet, 12.5 MG PO BID for 14 Days, TAB Prov:ERNESTINE KELLOGG MD 10/27/18 Lisinopril* (Lisinopril*) 20 Mg Tablet, 20 MG PO DAILY for 11 Days, TAB Prov:ERNESTINE KELLOGG MD 10/27/18 Montelukast Sodium* (Montelukast Sodium*) 10 Mg Tablet, 10 MG PO HS for 30 Days, #30 TAB 6 Refills Prov:ERNESTINE KELLOGG MD 10/27/18 Aspirin (Aspirin) 81 Mg Chew, 81 MG PO DAILY for 30 Days, #30 TAB 6 Refills Prov:SANCHEZ ANDERSON MD 08/26/18 Hydralazine Hcl* (Apresoline*) 50 Mg Tab, 75 MG PO TID for 30 Days, #90 TAB 6 Refills Prov:SANCHEZ ANDERSON MD 08/26/18 Atorvastatin* (Atorvastatin*) 40 Mg Tablet, 40 MG PO HS for 30 Days, #30 TAB 6 Refills Prov:SANCHEZ ANDERSON MD 08/26/18 Clopidogrel Bisulfate (Clopidogrel) 75 Mg Tablet, 75 MG PO DAILY for 30 Days, #30 TAB 6 Refills Prov:SANCHEZ ANDERSON MD 08/26/18 Reported Medications Insulin Glargine* (Lantus*) 100 Unit/Ml Soln, 24 UNIT SC QHS, #1 VIAL 11/12/18 Insulin Aspart* (Novolog Insulin Pen*) 100 Unit/Ml Soln, 8 UNIT SC WITH MEALS, EA 11/12/18 Multivitamin with Minerals (Multivitamins with Minerals) 1 Each Tablet, 1 EACH PO DAILY, TAB 11/12/18 Enoxaparin Sodium* (Lovenox*) 40 Mg/0.4 Ml Syringe, 40 MG SC DAILY, SYR 11/12/18 Amino Acids/Protein Hydrolys (PRO-STAT LIQUID) 30 Ml Liquid.pkt, 30 ML PO DAILY for SUGAR FREE 11/12/18 Ondansetron Hcl* (Zofran*) 4 Mg Tablet, 4 MG PO Q6H PRN for NAUSEA AND OR VOMITING, TAB 11/12/18 Polyethylene Glycol* (Miralax*) 17 Gm Powd.pack, 17 GM PO BID, #60 PACKET 11/12/18 Ascorbic Acid (Vitamin C) 500 Mg Tab, 500 MG PO DAILY, TAB 11/12/18 Zinc Sulfate* (Zinc Sulfate*) 220 Mg Cap, 220 MG PO DAILY, CAP 11/12/18 Sucralfate* (Carafate*) 1 Gm Tab, 1 GM PO AC MEALS AND BEDTIME, TAB 11/12/18 Famotidine* (Pepcid*) 20 Mg Tablet, 20 MG PO DAILY, #30 TAB 11/12/18 Levofloxacin* (Levofloxacin*) 250 Mg Tablet, 250 MG PO DAILY for END DATE 11/20/18, TAB 11/12/18 Amlodipine Besylate* (Amlodipine Besylate*) 10 Mg Tablet, 10 MG PO DAILY, #30 TAB 10/05/18 Discontinued Scripts Enoxaparin Sodium* (Enoxaparin Sodium*) 30 Mg/0.3 Ml Syringe, 30 MG SC DAILY for 14 Days Prov:ERNESTINE KELLOGG MD 10/27/18 [place], Insulin Disposable (Fidelia Pen Needle) 1 Each Dis.needle, EACH MC AC MEALS AND BEDTIME for diabetes mellitus, #120 6 Refills Prov:SANCHEZ ANDERSON MD 08/26/18 Tramadol HCl (Tramadol HCl) 50 Mg Tablet, 50 MG PO Q6 PRN for PAIN, #20 TAB Prov:ERICA OROPEZA 12/09/16 Current Medications Cefepime HCl 50 ml @ 100 mls/hr Q12 IVPB Last administered on 11/13/18at 08:05; Admin Dose 100 MLS/HR; Start 11/13/18 at 09:00 Vancomycin HCl (Vanco Iv Per Pharmacy) VANCOMYCIN PER PHARMACY PER PROTOCOL XX ; Start 11/12/18 at 22:00 Amlodipine Besylate (Norvasc) 10 mg DAILY PO Last administered on 11/13/18at 08:06; Admin Dose 10 MG; Start 11/13/18 at 09:00 Ascorbic Acid (Vitamin C) 500 mg DAILY PO Last administered on 11/13/18at 08:06; Admin Dose 500 MG; Start 11/13/18 at 09:00 Atorvastatin Calcium (Lipitor) 40 mg HS PO ; Start 11/13/18 at 21:00 Carvedilol (Coreg) 12.5 mg BID PO Last administered on 11/13/18at 08:06; Admin Dose 12.5 MG; Start 11/12/18 at 22:00 Hydralazine HCl (Apresoline) 75 mg TID PO Last administered on 11/13/18at 12:34; Admin Dose 75 MG; Start 11/13/18 at 09:00 Lisinopril (Zestril) 20 mg DAILY PO Last administered on 11/13/18at 08:05; Admin Dose 20 MG; Start 11/13/18 at 09:00 Montelukast Sodium (Singulair) 10 mg HS PO ; Start 11/13/18 at 21:00 Sodium Chloride 1,000 ml @ 50 mls/hr Q20H IV Last administered on 11/12/18at 22:48; Admin Dose 50 MLS/HR; Start 11/12/18 at 22:00 IV Flush (NS 3 ml) 3 ml PER PROTOCOL IV ; Start 11/12/18 at 22:00 Ondansetron HCl (Zofran Inj) 4 mg Q6H PRN IV NAUSEA/VOMITING; Start 11/12/18 at 22:00 Acetaminophen (Tylenol Tab) 650 mg Q6H PRN PO .PAIN 1-3 OR TEMP; Start 11/12/18 at 22:00 Acetaminophen/ Hydrocodone Bitart ([place] (5/325)) 1 tab Q6H PRN PO .PAIN 4-6; Start 11/12/18 at 22:00 Morphine Sulfate (morphine) 2 mg Q4H PRN IV .PAIN 7-10; Start 11/12/18 at 22:00 Pantoprazole (Protonix Iv) 40 mg DAILY@06 IV Last administered on 11/13/18at 05:21; Admin Dose 40 MG; Start 11/13/18 at 06:00 Hydralazine HCl (Apresoline) 10 mg Q4H PRN IV ELEVATED BLOOD PRESSURE; Start 11/13/18 at 00:00 Miscellaneous Information (Pending [facility] Order For Wound Care) This patient rodríguez... PRN PRN XX WOUND CARE; Start 11/13/18 at 06:30 Nystatin (Nystatin Powder) 1 applic BID TOP Last administered on 11/13/18at 14:07; Admin Dose 1 APPLIC; Start 11/13/18 at 13:00 Insulin Glargine (Lantus) 12 units DAILY@2000 SC ; Start 11/13/18 at 20:00 Insulin Aspart (Novolog Insulin Pen) NOVOLOG *MILD* ALGORI... Q4 SC Last administered on 11/13/18at 16:51; Admin Dose 1 UNIT; Start 11/13/18 at 17:00 Vancomycin HCl 1.25 gm/Sodium Chloride 250 ml @ 83.333 mls/ hr Q24H IVPB ; Start 11/14/18 at 09:00 Meds reviewed: Yes Allergies Coded Allergies: No Known Allergies (Verified Allergy, Mild, 11/12/18) Allergies Reviewed: Yes Labs/Studies Labs Reviewed: Reviewed by anesthesiologist Result Diagram: 11/13/1841 11/13/18 0641 Laboratory Tests 11/13/18 06:41 test: N/A Studies: ECG (SR), CXR (Cardiomegaly with mild central venous congestion and s mall right pleural effusion.) Pre-procedure Exam Last vitals Vital Signs Date Temp Pulse Resp B/P (MAP) Pulse Ox O2 O2 Flow FiO2 Time Delivery Rate 11/13/18 99.0 80 16 165/79 94 Room Air 14:20 (107) 11/13/18 2.0 00:20 Airway: Adequate mouth opening Mallampati: Mallampati II Teeth: Normal Lung: Normal Heart: Normal ASA Physical Status ASA physical status: 2 Emergency: None Planned Anesthetic General/MAC: ETT Pre-operative Attestations Prior to commencing anesthesia and surgery, the patient was re-evaluated, there was verification of: *The patient's identity *The results of appropriate recent lab work and preoperative vital signs *The above evaluation not changing prior to induction *Anesthetic plan, risk benefits, alternative and complications discussed with patient/family; questions answered; patient/family understands, accepts and wishes to proceed. FANNY HASKINS Nov 13, 2018 17:30
--- NOTE | 2018-11-13 17:56 | HPN ---
Date/Time of Note Date/Time of Note DATE: 11/13/18 TIME: 17:56 Interval H&P Admission Note Pt. seen H&P reviewed: No system changes SHAILA FRIAS DPM Nov 13, 2018 17:56
[2018-11-13] MEDS ORDERED: MIDAZOLAM 1 MG/ML 2 ML INJ ONE (18:20)
[2018-11-13] MEDS ORDERED: ROPIVACAINE 0.2% 20 ML VIAL ONE ×2 (18:20→18:31)
[2018-11-13] MEDS ORDERED: POLYMYXIN/BACITRACIN 1L IRRIG IRR ONE (18:36)
--- NOTE | 2018-11-13 19:29 | SIPON ---
Date/Time of Note Date/Time of Note DATE: 11/13/18 TIME: 19:24 Operative Report Preoperative Diagnosis Left foot ulceration OM left foot Dm2 with PN Charcot left foot DFU left foot Postoperative Diagnosis same Operation/Procedure Performed Left foot debridement of heel skin, subcut, ligament 4x 5 cm Left foot debridement of skin, subcut, bone dorsal foot 10 x 8 cm Left foot application of integra Left foot local rotation flap closure 1st MPJ Left foot local rotation flap closure 5th MPJ Biopsy of bone 5th metatarsal Surgeon Christopher Jeff DPM college sports [employer] Moon Garcia DPM Anesthesia: MAC Estimated blood loss: 10 - 50 ml's Transfusion Required none Specimen wound tissue culture/ bone culture and bone pathology 5th metatarsal Grafts/Implants integra Complications none MOON GARCIA DPM Nov 13, 2018 19:28
--- NOTE | 2018-11-13 19:29 | OPR ---
Date/Time of Note Date/Time of Note DATE: 11/13/18 TIME: 19:26 Operative Report Preoperative Diagnosis Left foot ulceration OM left foot Dm2 with PN Charcot left foot DFU left foot Postoperative Diagnosis Left foot ulceration OM left foot Dm2 with PN Charcot left foot DFU left foot Operation/Procedure Performed Left foot debridement of heel skin, subcut, ligament 4x 5 cm Left foot debridement of skin, subcut, bone dorsal foot 10 x 8 cm Left foot application of integra Left foot local rotation flap closure 1st MPJ Left foot local rotation flap closure 5th MPJ Biopsy of bone 5th metatarsal Surgeon Christopher Frias DPM Sign Carpenter Jay aGrcia DPM Anesthesia Type: moderate sedation Estimated Blood Loss: 10 - 50 ml's Transfusion none Specimen wound tissue culture/ bone culture and bone pathology 5th metatarsal Grafts/Implants integra Complications none Indications 53 y/o diabetic female patient with history of chronic osteomyelitis, diabetes with chronic ulceration requiring surgical debridement, wound closure and allograft application. Patient amenable to surgery and all off patients questions and concerns addressed. No promises or guarantees given. Procedure Description Patient was brought into the OR and kept in the supine position on her bed. The left lower extremity was scrubbed, prepped, and draped in the usual aseptic manner. A formal timeout was conducted. Attention was directed to the dorsal aspect of the left foot ulceration site which measured 10 x 8 x 0.5cm. The wound base was mixed granular, fibrotic, with bone exposed. Excisional debridement of skin/subQ/fascia/bone was performed of the left foot dorsal ulcer site with scalpel, curettes, and rongeurs. 80cm2 of area was debrided. Copious antibiotic infused saline irrigation was used at the ulcer site. Then using integra bilayer allograft the graft was secured to the dorsal wound with 3-0 nylon suture which was well adhered. Next attention was directed to the medial 1st metatarsal ulceration site which measured 1.0 x 1.0 x 0.4cm which had joint capsule exposed. The ulceration was excised using scalpel and pickup. An incision was made in a curvilinear fashion which provided two adjacent skin flaps which was then advanced and rotated to provide wound coverage of the medial ulceration site. The skin flaps were reapproximated and sutured using 3-0 nylon. Subsequently attention was directed to the lateral aspect of the 5th metatarsal area where excisional debridement of skin/subQ/tendon/bone was performed of the lateral ulceration site which measure 2 x 1.5 x 0.6cm. Less than 10cm2 of area was debrided. Fibrotic tissue, necrotic bone and non-viable tissue was removed using rongeurs, curettes, and scalpel. Bone was taken for biopsy from the 5th metatarsal region ulceration site. Copious antibiotic infused saline was used for irrigation. Using a scalpel blade a curvilinear incision was made which provided a skin flap to be rotated overlying the lateral 5th metatarsal ulceration site. Once the skin flap was advanced and rotated it was secured with 3-0 nylon suture. Next excisional debridement the left heel of skin/subQ/ligament was performed using a scalpel blade. Necrotic and fibrotic tissue was removed from the wound bed approximately 20cm2 of area was debrided. Copious antibiotic infused saline was used for irrigation. Then using integra bilayer allograft the graft was secured to the dorsal wound with 3-0 nylon suture which was well adhered. Xeroform and dry sterile dressings were applied to all surgical sites. Patient was then transferred to PACU with vital signs stable and neurovascular status intact. CHRISTOPHER FRIAS DPM Nov 13, 2018 19:28
[2018-11-13] MEDS ORDERED: ONDANSETRON 4 MG INJ ONE (19:31)
--- NOTE | 2018-11-13 19:40 | PAC ---
Date/Time of Note Date/Time of Note DATE: 11/13/18 TIME: 19:39 Post-Anesthesia Notes Post-Anesthesia Note Last documented vital signs Vital Signs Date Temp Pulse Resp B/P (MAP) Pulse Ox O2 O2 Flow FiO2 Time Delivery Rate 11/13/18 99.0 80 16 165/79 94 Room Air 14:20 (107) 11/13/18 99 72 18 115/69 100 2.0 1939 Activity: WNL Respiratory function: WNL Cardiovascular function: WNL Mental status: Baseline Pain reasonably controlled: Yes Hydration appropriate: Yes Nausea/Vomiting absent: Yes BHARGAVI LEY DO Nov 13, 2018 19:40
[2018-11-13] MEDS ORDERED: INSULIN GLARGINE [LANTus] (100 UNITS/ML) SYG SC SCH (20:00)
[2018-11-13] MEDS: hydrALAzine 20 MG INJ IV PRN (20:03)
[2018-11-13] MEDS: INSULIN GLARGINE [LANTus] (100 UNITS/ML) SYG SC SCH (21:54)
[2018-11-13] MEDS: ATORVASTATIN 40 MG TAB PO SCH (21:58)
[2018-11-13] MEDS: MONTELUKAST 10 MG TAB PO SCH (22:00)
--- NOTE | 2018-11-13 23:51 | CONS ---
DATE OF ADMISSION: 11/12/2018 DATE OF CONSULTATION: 11/13/2018 REASON FOR CONSULTATION: Antibiotic management. HISTORY OF PRESENT ILLNESS: Misti Ibarra is a 53-year-old female who came in with nausea an d vomiting which have been intermittent for the last 3 weeks. Her past problems include: 1. Hypertension. 2. Hyperlipidemia. 3. Coronary artery disease with congestive heart failure. 4. Diabetes mellitus. 5. COPD. 6. Chronic osteomyelitis with left lower extremity diabetic ulcers requiring previous debridement. She [facility] of her wounds. The patient is also here f or intermittent vomiting over the last 3 weeks. She has episodes of nausea at home. She denies abdo gladis pain, denies changes in her bowel habits or in urination. She has been on multiple antibiotics over the last 3 weeks, and the patient and family are not sure if that is related. She had her woun ds dressed in the clinic and then was sent down for further evaluation. PAST SURGICAL HISTORY: Debridement of the lower extremity. PAST MEDICAL HISTORY: Essentially as outlined. FAMILY HISTORY: Noncontributory. She has diabetes in her family. SOCIAL HISTORY: She does not smoke, drink or abuse drugs. ALLERGIES: NONE TO PENICILLIN, SULFA OR FOODS. MEDICATIONS: Per chart. REVIEW OF SYSTEMS: As per HPI. HOSPITAL COURSE: On admission, she had diabetic ulcers of the left foot. Her white count was 6.7, H and H was 12.2/37.8, platelet count 235,000. BUN and creatinine 5/1.25. The patient was seen by Dr Paco Jeff of Podiatry. The patient was kept n.p.o. Plan for left foot wound debridement and application of allograft to wound VAC. She had recent angioplasty with posterior tibial artery runof f, and per Vascular, she is optimized. The patient is currently on vancomycin and cefepime. She had left lower extremity angiogram with angioplasty in the past. On the , today, patient was taken to surgery. She had left foot ulceration, osteomyelitis of the left foot, diabetes mellitus, Charcot left foot, diabetic foot ulcer of the left foot. Postoperativ e was the same. Operation and procedure: Left foot debridement of heel skin, subcutaneous tissue an d ligament; left foot debridement of skin, subcutaneous tissue, bone of the dorsal foot, 10 x 8 cm; l eft foot application of Integra; left foot local rotation flap closure of the 1st MP; left foot local rotation flap closure of 5th MP. Wound tissue was cultured. Bone was cultured and bone pathology w as sent from the 5th metatarsal. The patient is a 53-year-old female with chronic osteomyelitis and diabetes. She had incision and dr latasha of her left foot, excisional debridement with application of allograft of the left foot. She is currently on vancomycin and cefepime. PHYSICAL EXAMINATION: GENERAL: She is a well-developed, well-nourished female, awake, responsive, in no acute distress. VITAL SIGNS: Stable. She is afebrile. SKIN: Without generalized rash. HEENT: Within normal limits. NECK: Supple. LYMPH NODES: None palpable. CHEST: Decreased breath sounds at the bases. HEART: Without murmur or gallop. ABDOMEN: Soft, nontender without organosplenomegaly or masses. EXTREMITIES: She currently has her left foot wrapped and bandaged status post surgery. RECTAL AND GENITAL: Deferred. NEUROLOGICAL EVALUATION: No focal neurological abnormalities. LABORATORY DATA: Her white count today is 6.4, H and H 10.6/33.3, platelet count of 181,000. BUN an d creatinine are 15/1.25, and her urine has trace leukocyte esterase but only 11 white cells per high -power field. CONCLUSION: She is a 53-year-old female with chronic osteomyelitis of left foot, currently status po st debridement and allograft placement. She is on vancomycin and cefepime. PLAN: Let us continue her on this current therapy and we will await her culture reports. I will dic christie my findings to Dr. Jeff and Dr. Garcia. Dictated By: AARTI DELGADO MD, JD/NTS Conf#: [id number] DID#: [id number] CC: DIGNA ANDRADE MD;*EndCC*
[2018-11-14 00:15] VITALS: BP 145/68; PULSE 73; RESP 18
[2018-11-14] MEDS: INSULIN ASPART [NOVOLOG] 3 ML PEN SC SCH ×5 (00:20→21:00)
[2018-11-14] MEDS ORDERED: GLUCAGON 1 MG INJ IM PRN (00:30)
[2018-11-14] MEDS ORDERED: GLUCOSE GEL 15 GRAM TUBE PO PRN ×2 (00:30)
[2018-11-14] MEDS ORDERED: DEXTROSE 50% 50 ML SYRINGE IV PRN ×2 (00:30)
[2018-11-14] MEDS ORDERED: GLUCOSE GEL 15 GRAM TUBE BUCCAL PRN (00:30)
[2018-11-14 02:00] VITALS: BP 145/68; PULSE 74; RESP 17
[2018-11-14] MEDS: ACCU-CHEK XX SCH (02:00)
[2018-11-14] MEDS: morphine 2 MG INJ IV PRN (05:09)
[2018-11-14] MEDS: PANTOPRAZOLE 40 MG INJ IV SCH (05:13)
[2018-11-14 07:30] VITALS: BP 158/72; PULSE 60; RESP 18
[2018-11-14] MEDS: SOD CHLORIDE 0.9% 1,000 ML IV SCH ×2 (07:30→13:50)
[2018-11-14] MEDS: AMLODIPINE 10 MG TAB PO SCH (08:17)
[2018-11-14] MEDS: ASCORBIC ACID 500 MG TAB PO SCH (08:17)
[2018-11-14] MEDS: LISINOPRIL 20 MG TAB PO SCH (08:17)
[2018-11-14] MEDS: CEFEPIME 1GM/50 ML (PMX) 50 ML IVPB SCH ×2 (08:18→20:57)
[2018-11-14] MEDS: NYSTATIN 30 GM POWDER BTL TOP SCH ×2 (08:18→20:58)
[2018-11-14] MEDS ORDERED: VANCOMYCIN HCL 1.25 GM in SOD CHLORIDE 0.9% 250 ML IVPB SCH (09:00)
[2018-11-14] MEDS: VANCOMYCIN 750 MG (PMX) 250 ML IVPB SCH (09:17)
--- NOTE | 2018-11-14 12:15 | CONS ---
Assessment/Plan Assessment/Plan Hospital Course (Demo Recall) ID PROGRESS NOTE CURRENT ABX: DAY # Vanco IV + Cefepime 11/14/1842411/14/18 0425 24H INTERVAL SUMMARY * Lethargic, VSS, no fevers * s/p left foot I&D 11/13/18-> Wound and tissue cx (-) 24H POD #1 DATE: 11/13/18 TIME: 19:24 * Preoperative Diagnosis Left foot ulceration OM left foot Dm2 with PN Charcot left foot DFU left foot Postoperative Diagnosis: same * Operation/Procedure Performed Left foot debridement of heel skin, subcut, ligament 4x 5 cm Left foot debridement of skin, subcut, bone dorsal foot 10 x 8 cm Left foot application of integra Left foot local rotation flap closure 1st MPJ Left foot local rotation flap closure 5th MPJ Biopsy of bone 5th metatarsal MICRO * 11/13/18 LEFT FOOT TISSUE BX (-) TISSUE (BIOPSY) CULTURE Preliminary No growth after 1 day * 11/13/18 LEFT FOOT CX (-)WOUND CULTURE Preliminary No growth after 1 day * 10/05/18 WOUND CX: WOUND CULTURE Final Organism 1 ENTEROBACTER CLOACAE QUANTITY 3+ Organism 2 K.PNEUMONIAE SSP PNEUMONIAE QUANTITY 1+ Organism 3 ENTEROCOCCUS SPECIES QUANTITY ISOLATED FROM BROTH ONLY Organism 4 PROTEUS MIRABILIS QUANTITY 2+ E CLOACAE K PNE SPP ENT SPS M.I.C. RX M.I.C. RX M.I.C. RX --------- --- --------- --- --------- --- AMPICILLIN <=2 S CEFAZOLIN <=4 S CEFOTAXIME S S CIPROFLOXACIN <=0.25 S <=0.25 S GENTAMICIN <=1 S <=1 S LEVOFLOXACIN <=0.12 S <=0.12 S PENICILLIN-G 4 S VANCOMYCIN 1 S TOBRAMYCIN <=1 S <=1 S TRIMETHOPRIM/SULFAMETHOXAZOLE <=20 S <=20 S * 10/04/18 BCX (+) Organism 1 ENTEROBACTER CLOACAE Organism 2 BACILLUS SPECIES E CLOACAE M.I.C. RX --------- --- CEFOTAXIME S CIPROFLOXACIN <=0.25 S GENTAMICIN <=1 S LEVOFLOXACIN <=0.12 S TOBRAMYCIN <=1 S TRIMETHOPRIM/SULFAMETHOXAZOLE <=20 S PIPERACILLIN/TAZOBACTAM <=4 S * 08/09/18 BCX (-) 24h * 08/18/18 LEFT FOOT INTRA-OP CX: WOUND CULTURE Final Organism 1 METHICILLIN RESISTANT S.AUREUS PHYSICAL EXAMINATION: GENERAL: Afebrile, VSS, A/A/O HEENT: AT, NC, anicteric NECK: Supple, CHEST: Equal chest rise bilaterally, without dyspnea on observation HEART: Pulse RRR ABDOMEN: Soft / NT EXTREMITIES: Warm, dry - Left foot DSG C/D/I (+)LUEXT edema SKIN: No rash, no diaphoresis ID ASSESSMENT 53 yo F admit with: 1. SIRS s/ persistent leukocytosis -> S/p sepsis with bacteremia on admission likely secondary to #2 & #3 2. POD #1 DATE: 11/13/18 TIME: 19:24 * Preoperative Diagnosis Left foot ulceration OM left foot Dm2 with PN Charcot left foot DFU left foot Postoperative Diagnosis: same * Operation/Procedure Performed Left foot debridement of heel skin, subcut, ligament 4x 5 cm Left foot debridement of skin, subcut, bone dorsal foot 10 x 8 cm Left foot application of integra Left foot local rotation flap closure 1st MPJ Left foot local rotation flap closure 5th MPJ Biopsy of bone 5th metatarsal 4. Diabetes type 2 w/complication of DM peripheral neuropathy 5. Peripheral arterial disease 6. Acute kidney insufficiency on CKD 7. History of transaminitis secondary to Daptomycin 8. Anemia of chronic disease and iron deficiency 9. Essential HTN w/hx of HTN urgency 10. Hx of Left upper extremity thrombus w/edema 11. Hypercoagulable state 12. Hx of COPD-Asthma = asymptomatic 13. OPIOID INDUCED CONSTIPATION * s/p vasovagal episode in setting of opioid constipation while attempting to pass stool on commode 14. CAD and Hx of HF -- stable 15. S/P Pseudomonas and E. coli UTI = S/P TREATED (-)MRSA Nares ABX ALLERGIES: NKDA INVASIVES: PICC ->Right upper extremity PICC line, present on admission, FC CURRENT ABX: DAY # = # Vanco IV + Cefepime s/p Ampicillin + Levaquin ID RECOMMENDATIONS/PLAN: 1. Continue current ABX and follow APC recommendations . Consultation Date/Type/Reason Admit Date/Time Nov 12, 2018 at 20:14 Initial Consult Date Date/Time of Note DATE: 11/14/18 TIME: 12:15 Exam/Review of Systems Exam Vitals Vital Signs Date Temp Pulse Resp B/P (MAP) Pulse Ox O2 O2 Flow FiO2 Time Delivery Rate 11/14/18 98.9 60 18 158/72 94 Room Air 07:30 (100) 11/13/18 2.0 00:20 Intake and Output 11/13/18 11/13/18 11/14/18 1515:00 23:00 07:00 IntakeIntake Total 890 ml 400 ml 460 ml OutputOutput Total 25 ml BalanceBalance 890 ml 375 ml 460 ml Results Result Diagram: 11/14/18 0425 11/14/18 0425 Results 24hrs Laboratory Tests Test 11/13/18 16:49 11/13/18 19:39 11/13/18 21:46 11/14/18 04:25 Bedside Glucose 159 147 137 White Blood Count 8.4 # Red Blood Count 3.55 L Hemoglobin 10.0 L Hematocrit 31.2 L Mean Corpuscular 87.9 Volume Mean Corpuscular 28.2 L Hemoglobin Mean Corpuscular 32.1 Hemoglobin Concent Red Cell 13.4 Distribution Width Platelet Count 178 Mean Platelet Volume 11.8 H Immature 0.500 H Granulocytes % Neutrophils % 77.9 H Lymphocytes % 14.0 L Monocytes % 6.2 Eosinophils % 1.0 Basophils % 0.4 Nucleated Red Blood 0.0 Cells % Immature 0.040 H Granulocytes # Neutrophils # 6.6 Lymphocytes # 1.2 Monocytes # 0.5 Eosinophils # 0.1 Basophils # 0.0 Nucleated Red Blood 0.0 Cells # Sodium Level 141 Potassium Level 3.2 L Chloride Level 109 Carbon Dioxide Level 28 Anion Gap 4 L Blood Urea Nitrogen 14 Creatinine 1.08 H Est Glomerular 53 L Filtrat Rate mL/min Glucose Level 70 # Calcium Level 8.3 L Phosphorus Level 4.1 Magnesium Level 1.8 Test 11/14/18 08:38 11/14/18 08:55 Bedside Glucose 94 113 Medications Medication Current Medications Cefepime HCl 50 ml @ 100 mls/hr Q12 IVPB Last administered on 11/14/18at 08:18; Admin Dose 100 MLS/HR; Start 11/13/18 at 09:00 Vancomycin HCl (Vanco Iv Per Pharmacy) VANCOMYCIN PER PHARMACY PER PROTOCOL XX ; Start 11/12/18 at 22:00 Amlodipine Besylate (Norvasc) 10 mg DAILY PO Last administered on 11/14/18 08:17; Admin Dose 10 MG; Start 11/13/18 at 09:00 Ascorbic Acid (Vitamin C) 500 mg DAILY PO Last administered on 11/14/18 08:17; Admin Dose 500 MG; Start 11/13/18 at 09:00 Atorvastatin Calcium (Lipitor) 40 mg HS PO Last administered on 11/13/18at 21:58; Admin Dose 40 MG; Start 11/13/18 at 21:00 Carvedilol (Coreg) 12.5 mg BID PO Last administered on 11/14/18 08:18; Admin Dose 12.5 MG; Start 11/12/18 at 22:00 Hydralazine HCl (Apresoline) 75 mg TID PO Last administered on 11/14/18 08:17; Admin Dose 75 MG; Start 11/13/18 at 09:00 Lisinopril (Zestril) 20 mg DAILY PO Last administered on 11/14/18 08:17; Admin Dose 20 MG; Start 11/13/18 at 09:00 Montelukast Sodium (Singulair) 10 mg HS PO Last administered on 11/13/18 22:00; Admin Dose 10 MG; Start 11/13/18 at 21:00 Sodium Chloride 1,000 ml @ 50 mls/hr Q20H IV Last administered on 11/14/18at 07:30; Admin Dose 50 MLS/HR; Start 11/12/18 at 22:00 IV Flush (NS 3 ml) 3 ml PER PROTOCOL IV ; Start 11/12/18 at 22:00 Ondansetron HCl (Zofran Inj) 4 mg Q6H PRN IV NAUSEA/VOMITING; Start 11/12/18 at 22:00 Acetaminophen (Tylenol Tab) 650 mg Q6H PRN PO .PAIN 1-3 OR TEMP; Start 11/12/18 at 22:00 Acetaminophen/ Hydrocodone Bitart (Dewey (5/325)) 1 tab Q6H PRN PO .PAIN 4-6; Start 11/12/18 at 22:00 Morphine Sulfate (morphine) 2 mg Q4H PRN IV .PAIN 7-10 Last administered on 11/14/18at 05:09; Admin Dose 2 MG; Start 11/12/18 at 22:00 Pantoprazole (Protonix Iv) 40 mg DAILY@06 IV Last administered on 11/14/18at 05:13; Admin Dose 40 MG; Start 11/13/18 at 06:00 Hydralazine HCl (Apresoline) 10 mg Q4H PRN IV ELEVATED BLOOD PRESSURE Last administered on 11/13/18at 20:03; Admin Dose 10 MG; Start 11/13/18 at 00:00 Miscellaneous Information (Pending Santyl Order For Wound Care) This patient rodríguez... PRN PRN XX WOUND CARE; Start 11/13/18 at 06:30 Nystatin (Nystatin Powder) 1 applic BID TOP Last administered on 11/14/18at 08:18; Admin Dose 1 APPLIC; Start 11/13/18 at 13:00 Insulin Glargine (Lantus) 12 units DAILY@2000 SC Last administered on 11/13/18at 21:54; Admin Dose 12 UNITS; Start 11/13/18 at 20:00 Diagnostic Test (Pha) (Accu-Chek) 1 ea 02 XX ; Start 11/14/18 at 02:00 Insulin Aspart (Novolog Insulin Pen) NOVOLOG *MILD* ALGORITHM WITH MEALS BEDTIME SC ; Start 11/14/18 at 08:00 Miscellaneous Information 1 ea NOTE XX ; Start 11/14/18 at 00:30 Glucose (Glutose) 15 gm Q15M PRN PO DECREASED GLUCOSE; Start 11/14/18 at 00:30 Glucose (Glutose) 22.5 gm Q15M PRN PO DECREASED GLUCOSE; Start 11/14/18 at 00:30 Dextrose (D50w Syringe) 25 ml Q15M PRN IV DECREASED GLUCOSE; Start 11/14/18 at 00:30 Dextrose (D50w Syringe) 50 ml Q15M PRN IV DECREASED GLUCOSE; Start 11/14/18 at 00:30 Glucagon (Glucagen) 1 mg Q15M PRN IM DECREASED GLUCOSE; Start 11/14/18 at 00:30 Glucose (Glutose) 15 gm Q15M PRN BUCCAL DECREASED GLUCOSE Last administered on 11/14/18at 08:14; Admin Dose 15 GM; Start 11/14/18 at 00:30 Vancomycin/Sodium Chloride 250 ml @ 125 mls/hr Q12H IVPB Last administered on 11/14/18at 09:17; Admin Dose 125 MLS/HR; Start 11/14/18 at 09:30 Miscellaneous Information (*Rx Drug Level Order Reminder*) 1 ONCE ONCE XX ; Start 11/15/18 at 08:30; Stop 11/15/18 at 08:31 BRENT HERRERA NP Nov 14, 2018 12:15
[2018-11-14 14:15] VITALS: BP 149/76; PULSE 72; RESP 16
[2018-11-14] MEDS ORDERED: POTASSIUM CHLORIDE (SR) 20 MEQ TAB PO STA (15:08)
--- NOTE | 2018-11-14 15:13 | PN ---
Date/Time of Note Date/Time of Note DATE: 11/14/18 TIME: 15:12 Assessment/Plan VTE Prophylaxis Risk score (from Nsg)>0 risk: 5 SCD applied (from Nsg): Yes Pharmacological prophylaxis: other Lines/Catheters IV Catheter Type (from Nrsg): PICC Line Central line still needed: Yes Assessment/Plan Hospital Course S: Patient had debridement performed yesterday by podiatry team. No fevers o vernight. Objective VS - see below Physical exam General: lying in bed, answers questions appropriately Mentation: Patient is alert and oriented 4, Head: Normocephalic atraumatic Eyes: EOMI, pupils reactive to light Neck: Supple, nontender, midline Respiratory: Clear to auscultation bilaterally Cardiovascular: regular rate, no obvious murmurs Gastrointestinal: non-tender to palpation, bowel sounds heard. Neurological: Moves all extremities spontaneously Skin: Left foot bandaged, CDI DATE: 11/13/18 Operative Report Preoperative Diagnosis Left foot ulceration OM left foot Dm2 with PN Charcot left foot DFU left foot Postoperative Diagnosis Left foot ulceration OM left foot Dm2 with PN Charcot left foot DFU left foot Operation/Procedure Performed Left foot debridement of heel skin, subcut, ligament 4x 5 cm Left foot debridement of skin, subcut, bone dorsal foot 10 x 8 cm Left foot application of integra Left foot local rotation flap closure 1st MPJ Left foot local rotation flap closure 5th MPJ Biopsy of bone 5th metatarsal Assessment and plan: 53-year-old female with a past medical history of hypertension, hyperlipidemia, CHF, diabetes, COPD, chronic osteomyelitis with left lower extremity diabetic ulcers requiring previous debridement, presenting from the wound care clinic for evaluation of the wounds. # Chronic osteomyelitis -left foot/lower extremity -again status post surgical debridement postop day #1 -Continue IV antibiotic, IV fluids -Follow-up final postoperative recommendations from podiatry, including wound care # [id number] now, on admission patient states this appears to happen in the mornings. -For now continue Protonix -Zofran as needed -Reassess need of possible GI evaluation # Dyslipidemia -Resume home meds when able # Peripheral arterial disease -Continue home meds when able, including aspirin and Plavix in 24 hours if okay with podiatry team and no signs of bleeding noted # Hypertension -presently stable -Continue home meds when able # Diabetes mellitus -current A1c was 6.1. Sugars appear stable -Monitor sugars, continue sliding scale insulin and current Lantus dose Result Diagram: 11/14/1842411/14/185 Results 24hrs Laboratory Tests Test 11/13/18 16:49 11/13/18 19:39 11/13/18 21:46 11/14/18 04:25 Bedside Glucose 159 147 137 White Blood Count 8.4 # Red Blood Count 3.55 L Hemoglobin 10.0 L Hematocrit 31.2 L Mean Corpuscular 87.9 Volume Mean Corpuscular 28.2 L Hemoglobin Mean Corpuscular 32.1 Hemoglobin Concent Red Cell 13.4 Distribution Width Platelet Count 178 Mean Platelet Volume 11.8 H Immature 0.500 H Granulocytes % Neutrophils % 77.9 H Lymphocytes % 14.0 L Monocytes % 6.2 Eosinophils % 1.0 Basophils % 0.4 Nucleated Red Blood 0.0 Cells % Immature 0.040 H Granulocytes # Neutrophils # 6.6 Lymphocytes # 1.2 Monocytes # 0.5 Eosinophils # 0.1 Basophils # 0.0 Nucleated Red Blood 0.0 Cells # Sodium Level 141 Potassium Level 3.2 L Chloride Level 109 Carbon Dioxide Level 28 Anion Gap 4 L Blood Urea Nitrogen 14 Creatinine 1.08 H Est Glomerular 53 L Filtrat Rate mL/min Glucose Level 70 # Calcium Level 8.3 L Phosphorus Level 4.1 Magnesium Level 1.8 Test 11/14/18 08:38 11/14/18 08:55 11/14/18 12:16 Bedside Glucose 94 113 93 Exam/Review of Systems Exam Vitals Vital Signs Date Temp Pulse Resp B/P (MAP) Pulse Ox O2 O2 Flow FiO2 Time Delivery Rate 11/14/18 99.0 72 16 149/76 93 Room Air 14:15 (100) 11/13/18 2.0 00:20 Intake and Output 11/13/18 11/13/18 11/14/18 1515:00 23:00 07:00 IntakeIntake Total 890 ml 400 ml 460 ml OutputOutput Total 25 ml BalanceBalance 890 ml 375 ml 460 ml Results Results 24hrs Laboratory Tests Test 11/13/18 16:49 11/13/18 19:39 11/13/18 21:46 11/14/18 04:25 Bedside Glucose 159 147 137 White Blood Count 8.4 # Red Blood Count 3.55 L Hemoglobin 10.0 L Hematocrit 31.2 L Mean Corpuscular 87.9 Volume Mean Corpuscular 28.2 L Hemoglobin Mean Corpuscular 32.1 Hemoglobin Concent Red Cell 13.4 Distribution Width Platelet Count 178 Mean Platelet Volume 11.8 H Immature 0.500 H Granulocytes % Neutrophils % 77.9 H Lymphocytes % 14.0 L Monocytes % 6.2 Eosinophils % 1.0 Basophils % 0.4 Nucleated Red Blood 0.0 Cells % Immature 0.040 H Granulocytes # Neutrophils # 6.6 Lymphocytes # 1.2 Monocytes # 0.5 Eosinophils # 0.1 Basophils # 0.0 Nucleated Red Blood 0.0 Cells # Sodium Level 141 Potassium Level 3.2 L Chloride Level 109 Carbon Dioxide Level 28 Anion Gap 4 L Blood Urea Nitrogen 14 Creatinine 1.08 H Est Glomerular 53 L Filtrat Rate mL/min Glucose Level 70 # Calcium Level 8.3 L Phosphorus Level 4.1 Magnesium Level 1.8 Test 11/14/18 08:38 11/14/18 08:55 11/14/18 12:16 Bedside Glucose 94 113 93 Medications Medication Current Medications Cefepime HCl 50 ml @ 100 mls/hr Q12 IVPB Last administered on 11/14/18 08:18; Admin Dose 100 MLS/HR; Start 11/13/18 at 09:00 Vancomycin HCl (Vanco Iv Per Pharmacy) VANCOMYCIN PER PHARMACY PER PROTOCOL XX ; Start 11/12/18 at 22:00 Amlodipine Besylate (Norvasc) 10 mg DAILY PO Last administered on 11/14/18at 08:17; Admin Dose 10 MG; Start 11/13/18 at 09:00 Ascorbic Acid (Vitamin C) 500 mg DAILY PO Last administered on 11/14/18 08:17; Admin Dose 500 MG; Start 11/13/18 at 09:00 Atorvastatin Calcium (Lipitor) 40 mg HS PO Last administered on 11/13/18at 21:58; Admin Dose 40 MG; Start 11/13/18 at 21:00 Carvedilol (Coreg) 12.5 mg BID PO Last administered on 11/14/18 08:18; Admin Dose 12.5 MG; Start 11/12/18 at 22:00 Hydralazine HCl (Apresoline) 75 mg TID PO Last administered on 11/14/18at 12:37; Admin Dose 75 MG; Start 11/13/18 at 09:00 Lisinopril (Zestril) 20 mg DAILY PO Last administered on 11/14/18at 08:17; Admin Dose 20 MG; Start 11/13/18 at 09:00 Montelukast Sodium (Singulair) 10 mg HS PO Last administered on 11/13/18at 22:00; Admin Dose 10 MG; Start 11/13/18 at 21:00 Sodium Chloride 1,000 ml @ 50 mls/hr Q20H IV Last administered on 11/14/18at 07:30; Admin Dose 50 MLS/HR; Start 11/12/18 at 22:00 IV Flush (NS 3 ml) 3 ml PER PROTOCOL IV ; Start 11/12/18 at 22:00 Ondansetron HCl (Zofran Inj) 4 mg Q6H PRN IV NAUSEA/VOMITING; Start 11/12/18 at 22:00 Acetaminophen (Tylenol Tab) 650 mg Q6H PRN PO .PAIN 1-3 OR TEMP; Start 11/12/18 at 22:00 Acetaminophen/ Hydrocodone Bitart ([place] (5/325)) 1 tab Q6H PRN PO .PAIN 4-6; Start 11/12/18 at 22:00 Morphine Sulfate (morphine) 2 mg Q4H PRN IV .PAIN 7-10 Last administered on 11/14/18at 05:09; Admin Dose 2 MG; Start 11/12/18 at 22:00 Pantoprazole (Protonix Iv) 40 mg DAILY@06 IV Last administered on 11/14/18at 05:13; Admin Dose 40 MG; Start 11/13/18 at 06:00 Hydralazine HCl (Apresoline) 10 mg Q4H PRN IV ELEVATED BLOOD PRESSURE Last a dministered on 11/13/18at 20:03; Admin Dose 10 MG; Start 11/13/18 at 00:00 Miscellaneous Information (Pending [facility] Order For Wound Care) This patient rodríguez... PRN PRN XX WOUND CARE; Start 11/13/18 at 06:30 Nystatin (Nystatin Powder) 1 applic BID TOP Last administered on 11/14/18at 08:18; Admin Dose 1 APPLIC; Start 11/13/18 at 13:00 Insulin Glargine (Lantus) 12 units DAILY@2000 SC Last administered on 11/13/18at 21:54; Admin Dose 12 UNITS; Start 11/13/18 at 20:00 Diagnostic Test (Pha) (Accu-Chek) 1 ea 02 XX ; Start 11/14/18 at 02:00 Insulin Aspart (Novolog Insulin Pen) NOVOLOG *MILD* ALGORITHM WITH MEALS BEDTIME SC ; Start 11/14/18 at 08:00 Miscellaneous Information 1 ea NOTE XX ; Start 11/14/18 at 00:30 Glucose (Glutose) 15 gm Q15M PRN PO DECREASED GLUCOSE; Start 11/14/18 at 00:30 Glucose (Glutose) 22.5 gm Q15M PRN PO DECREASED GLUCOSE; Start 11/14/18 at 00:30 Dextrose (D50w Syringe) 25 ml Q15M PRN IV DECREASED GLUCOSE; Start 11/14/18 at 00:30 Dextrose (D50w Syringe) 50 ml Q15M PRN IV DECREASED GLUCOSE; Start 11/14/18 at 00:30 Glucagon (Glucagen) 1 mg Q15M PRN IM DECREASED GLUCOSE; Start 11/14/18 at 00:30 Glucose (Glutose) 15 gm Q15M PRN BUCCAL DECREASED GLUCOSE Last administered on 11/14/18at 08:14; Admin Dose 15 GM; Start 11/14/18 at 00:30 Vancomycin/Sodium Chloride 250 ml @ 125 mls/hr Q12H IVPB Last administered on 11/14/18at 09:17; Admin Dose 125 MLS/HR; Start 11/14/18 at 09:30 Miscellaneous Information (*Rx Drug Level Order Reminder*) 1 ONCE ONCE XX ; Start 11/15/18 at 08:30; Stop 11/15/18 at 08:31 Potassium Chloride (Klor-Con 20) 40 meq ONCE STAT PO ; Start 11/14/18 at 15:08; Stop 11/14/18 at 15:09; Status IZZY OSBORNE Nov 14, 2018 15:13
[2018-11-14] MEDS: SUCRALFATE 1 GM TAB PO SCH ×2 (17:08→20:56)
[2018-11-14 19:40] VITALS: BP 159/82; PULSE 80; RESP 20
[2018-11-14] MEDS: BUPROPION (SR) 150 MG TAB PO SCH (20:56)
[2018-11-14] MEDS: ATORVASTATIN 40 MG TAB PO SCH (20:56)
[2018-11-14] MEDS: POLYETHYLENE GLYCOL 17 GM PACKET PO SCH (20:57)
[2018-11-14] MEDS: MONTELUKAST 10 MG TAB PO SCH (20:57)
[2018-11-14] MEDS: INSULIN GLARGINE [LANTus] (100 UNITS/ML) SYG SC SCH (21:06)
[2018-11-15] MEDS: VANCOMYCIN 750 MG (PMX) 250 ML IVPB SCH ×3 (00:05→21:55)
[2018-11-15] MEDS: ACCU-CHEK XX SCH (02:00)
[2018-11-15 02:05] VITALS: BP 139/92; PULSE 83; RESP 20
[2018-11-15] MEDS: PANTOPRAZOLE 40 MG INJ IV SCH (05:42)
[2018-11-15 07:48] VITALS: BP 164/77; PULSE 75; RESP 16
[2018-11-15] MEDS: INSULIN ASPART [NOVOLOG] 3 ML PEN SC SCH ×4 (08:00→21:00)
[2018-11-15] MEDS: BUPROPION (SR) 150 MG TAB PO SCH ×2 (08:32→21:10)
[2018-11-15] MEDS: SUCRALFATE 1 GM TAB PO SCH ×4 (08:33→21:10)
[2018-11-15] MEDS: LISINOPRIL 20 MG TAB PO SCH (08:33)
[2018-11-15] MEDS: AMLODIPINE 10 MG TAB PO SCH (08:33)
[2018-11-15] MEDS: ZINC SULFATE 220 MG CAP PO SCH (08:33)
[2018-11-15] MEDS: POLYETHYLENE GLYCOL 17 GM PACKET PO SCH ×2 (08:34→21:10)
[2018-11-15] MEDS: CEFEPIME 1GM/50 ML (PMX) 50 ML IVPB SCH ×2 (08:34→21:07)
[2018-11-15] MEDS: MULTIVITAMINS/MINERALS TAB PO SCH (08:34)
[2018-11-15] MEDS: ASCORBIC ACID 500 MG TAB PO SCH (08:34)
[2018-11-15] MEDS: NYSTATIN 30 GM POWDER BTL TOP SCH ×2 (08:35→21:13)
[2018-11-15] MEDS ORDERED: ASPIRIN 81 MG TAB PO SCH (09:00)
[2018-11-15] MEDS ORDERED: NON-FORMULARY/PATIENT OWN MED (Amino Acids/Protein Hydrolys (Pro-Stat Liquid) 30 ML) PO SCH (09:00)
[2018-11-15] MEDS ORDERED: CLOPIDOGREL 75 MG TAB PO SCH (09:00)
[2018-11-15] MEDS: SOD CHLORIDE 0.9% 1,000 ML IV SCH (10:30)
--- NOTE | 2018-11-15 14:40 | PN ---
Date/Time of Note Date/Time of Note DATE: 11/15/18 TIME: 14:38 Assessment/Plan VTE Prophylaxis Risk score (from Nsg)>0 risk: 3 SCD applied (from Nsg): Yes Pharmacological prophylaxis: other Lines/Catheters IV Catheter Type (from Nrsg): PICC Line Central line still needed: Yes Assessment/Plan Hospital Course S: Patient had no acute events overnight, no fevers. Objective VS - see below Physical exam General: lying in bed, answers questions appropriately Mentation: Patient is alert and oriented 4, Head: Normocephalic atraumatic Eyes: EOMI, pupils reactive to light Neck: Supple, nontender, midline Respiratory: Clear to auscultation bilaterally Cardiovascular: regular rate, no obvious murmurs Gastrointestinal: non-tender to palpation, bowel sounds heard. Neurological: Moves all extremities spontaneously Skin: Left foot bandaged, CDI DATE: 11/13/18 Operative Report Preoperative Diagnosis Left foot ulceration OM left foot Dm2 with PN Charcot left foot DFU left foot Postoperative Diagnosis Left foot ulceration OM left foot Dm2 with PN Charcot left foot DFU left foot Operation/Procedure Performed Left foot debridement of heel skin, subcut, ligament 4x 5 cm Left foot debridement of skin, subcut, bone dorsal foot 10 x 8 cm Left foot application of integra Left foot local rotation flap closure 1st MPJ Left foot local rotation flap closure 5th MPJ Biopsy of bone 5th metatarsal Assessment and plan: 53-year-old female with a past medical history of hypertension, hyperlipidemia, CHF, diabetes, COPD, chronic osteomyelitis with left lower extremity diabetic ulcers requiring previous debridement, presenting from the wound care clinic for evaluation of the wounds. # Chronic osteomyelitis -left foot/lower extremity -again status post surgical debridement postop day # 2. -Continue IV antibiotic, IV fluids -Follow-up final postoperative recommendations from podiatry, including wound care -We will need to discuss with both podiatry team and infectious disease team how long patient will need antibiotics for, preliminary wound culture does show growth of Pseudomonas, still waiting for final sensitivities on this # [id number] now, on admission patient states this appears to happen in the mornings. -For now continue Protonix -Zofran as needed -Reassess need of possible GI evaluation # Dyslipidemia -Resume home meds when able # Peripheral arterial disease -Continue home meds, now back on aspirin and Plavix # Hypertension -presently stable -Continue home meds when able # Diabetes mellitus -current A1c was 6.1. Sugars appear stable -Monitor sugars, continue sliding scale insulin and current Lantus dose Result Diagram: 11/15/18 0502 11/15/18 0502 Results 24hrs Laboratory Tests Test 11/14/18 17:07 11/14/18 21:04 11/15/18 05:02 11/15/18 08:14 Bedside Glucose 117 174 121 White Blood Count 6.8 Red Blood Count 3.46 L Hemoglobin 9.7 L Hematocrit 30.7 L Mean Corpuscular 88.7 Volume Mean Corpuscular 28.0 L Hemoglobin Mean Corpuscular 31.6 L Hemoglobin Concent Red Cell 13.4 Distribution Width Platelet Count 184 Mean Platelet Volume 11.9 H Immature 0.300 Granulocytes % Neutrophils % 69.0 Lymphocytes % 21.2 Monocytes % 7.5 Eosinophils % 1.6 Basophils % 0.4 Nucleated Red Blood 0.0 Cells % Immature 0.020 Granulocytes # Neutrophils # 4.7 Lymphocytes # 1.4 Monocytes # 0.5 Eosinophils # 0.1 Basophils # 0.0 Nucleated Red Blood 0.0 Cells # Sodium Level 141 Potassium Level 3.8 Chloride Level 107 Carbon Dioxide Level 30 Anion Gap 4 L Blood Urea Nitrogen 14 Creatinine 1.04 H Est Glomerular 55 L Filtrat Rate mL/min Glucose Level 78 Calcium Level 8.3 L Phosphorus Level 3.8 Magnesium Level 1.6 L Test 11/15/18 08:19 11/15/18 12:06 Vancomycin Level 15.5 Trough Bedside Glucose 106 Exam/Review of Systems Exam Vitals Vital Signs Date Temp Pulse Resp B/P (MAP) Pulse Ox O2 O2 Flow FiO2 Time Delivery Rate 11/15/18 98.3 75 16 164/77 96 07:48 (106) 11/14/18 Room Air 14:15 11/13/18 2.0 00:20 Intake and Output 11/14/18 11/14/18 11/15/18 1515:00 23:00 07:00 IntakeIntake Total 1360 ml 900 ml 850 ml BalanceBalance 1360 ml 900 ml 850 ml Results Results 24hrs Laboratory Tests Test 11/14/18 17:07 11/14/18 21:04 11/15/18 05:02 11/15/18 08:14 Bedside Glucose 117 174 121 White Blood Count 6.8 Red Blood Count 3.46 L Hemoglobin 9.7 L Hematocrit 30.7 L Mean Corpuscular 88.7 Volume Mean Corpuscular 28.0 L Hemoglobin Mean Corpuscular 31.6 L Hemoglobin Concent Red Cell 13.4 Distribution Width Platelet Count 184 Mean Platelet Volume 11.9 H Immature 0.300 Granulocytes % Neutrophils % 69.0 Lymphocytes % 21.2 Monocytes % 7.5 Eosinophils % 1.6 Basophils % 0.4 Nucleated Red Blood 0.0 Cells % Immature 0.020 Granulocytes # Neutrophils # 4.7 Lymphocytes # 1.4 Monocytes # 0.5 Eosinophils # 0.1 Basophils # 0.0 Nucleated Red Blood 0.0 Cells # Sodium Level 141 Potassium Level 3.8 Chloride Level 107 Carbon Dioxide Level 30 Anion Gap 4 L Blood Urea Nitrogen 14 Creatinine 1.04 H Est Glomerular 55 L Filtrat Rate mL/min Glucose Level 78 Calcium Level 8.3 L Phosphorus Level 3.8 Magnesium Level 1.6 L Test 11/15/18 08:19 11/15/18 12:06 Vancomycin Level 15.5 Trough Bedside Glucose 106 Medications Medication Current Medications Cefepime HCl 50 ml @ 100 mls/hr Q12 IVPB Last administered on 11/15/18 08:34; Admin Dose 100 MLS/HR; Start 11/13/18 at 09:00 Vancomycin HCl (Vanco Iv Per Pharmacy) VANCOMYCIN PER PHARMACY PER PROTOCOL XX ; Start 11/12/18 at 22:00 Amlodipine Besylate (Norvasc) 10 mg DAILY PO Last administered on 11/15/18at 08:33; Admin Dose 10 MG; Start 11/13/18 at 09:00 Ascorbic Acid (Vitamin C) 500 mg DAILY PO Last administered on 11/15/18at 08:34; Admin Dose 500 MG; Start 11/13/18 at 09:00 Atorvastatin Calcium (Lipitor) 40 mg HS PO Last administered on 11/14/18at 20:56 ; Admin Dose 40 MG; Start 11/13/18 at 21:00 Carvedilol (Coreg) 12.5 mg BID PO Last administered on 11/15/18 08:34; Admin Dose 12.5 MG; Start 11/12/18 at 22:00 Hydralazine HCl (Apresoline) 75 mg TID PO Last administered on 11/15/18at 13:28; Admin Dose 75 MG; Start 11/13/18 at 09:00 Lisinopril (Zestril) 20 mg DAILY PO Last administered on 11/15/18at 08:33; Admin Dose 20 MG; Start 11/13/18 at 09:00 Montelukast Sodium (Singulair) 10 mg HS PO Last administered on 11/14/18at 20:57; Admin Dose 10 MG; Start 11/13/18 at 21:00 Sodium Chloride 1,000 ml @ 50 mls/hr Q20H IV Last administered on 11/15/18at 10:30; Admin Dose 50 MLS/HR; Start 11/12/18 at 22:00 IV Flush (NS 3 ml) 3 ml PER PROTOCOL IV ; Start 11/12/18 at 22:00 Ondansetron HCl (Zofran Inj) 4 mg Q6H PRN IV NAUSEA/VOMITING; Start 11/12/18 at 22:00 Acetaminophen (Tylenol Tab) 650 mg Q6H PRN PO .PAIN 1-3 OR TEMP; Start 11/12/18 at 22:00 Acetaminophen/ Hydrocodone Bitart ([place] (5/325)) 1 tab Q6H PRN PO .PAIN 4-6; Start 11/12/18 at 22:00 Morphine Sulfate (morphine) 2 mg Q4H PRN IV .PAIN 7-10 Last administered on 11/14/18at 05:09; Admin Dose 2 MG; Start 11/12/18 at 22:00 Pantoprazole (Protonix Iv) 40 mg DAILY@06 IV Last administered on 11/15/18at 05:42; Admin Dose 40 MG; Start 11/13/18 at 06:00 Hydralazine HCl (Apresoline) 10 mg Q4H PRN IV ELEVATED BLOOD PRESSURE Last administered on 11/13/18at 20:03; Admin Dose 10 MG; Start 11/13/18 at 00:00 [facility] This patient rodríguez... PRN PRN XX WOUND CARE; Start 11/13/18 at 06:30 Nystatin (Nystatin Powder) 1 applic BID TOP Last administered on 11/15/18at 08:35; Admin Dose 1 APPLIC; Start 11/13/18 at 13:00 Insulin Glargine (Lantus) 12 units DAILY@2000 SC Last administered on 11/14/18at 21:06; Admin Dose 12 UNITS; Start 11/13/18 at 20:00 Diagnostic Test (Pha) (Accu-Chek) 1 ea 02 XX ; Start 11/14/18 at 02:00 Insulin Aspart (Novolog Insulin Pen) NOVOLOG *MILD* ALGORITHM WITH MEALS BEDTIME SC ; Start 11/14/18 at 08:00 Miscellaneous Information 1 ea NOTE XX ; Start 11/14/18 at 00:30 Glucose (Glutose) 15 gm Q15M PRN PO DECREASED GLUCOSE; Start 11/14/18 at 00:30 Glucose (Glutose) 22.5 gm Q15M PRN PO DECREASED GLUCOSE; Start 11/14/18 at 00:30 Dextrose (D50w Syringe) 25 ml Q15M PRN IV DECREASED GLUCOSE; Start 11/14/18 at 00:30 Dextrose (D50w Syringe) 50 ml Q15M PRN IV DECREASED GLUCOSE; Start 11/14/18 at 00:30 Glucagon (Glucagen) 1 mg Q15M PRN IM DECREASED GLUCOSE; Start 11/14/18 at 00:30 Glucose (Glutose) 15 gm Q15M PRN BUCCAL DECREASED GLUCOSE Last administered on 11/14/18at 08:14; Admin Dose 15 GM; Start 11/14/18 at 00:30 Vancomycin/Sodium Chloride 250 ml @ 125 mls/hr Q12H IVPB Last administered on 11/15/18at 10:29; Admin Dose 125 MLS/HR; Start 11/14/18 at 09:30 Aspirin (Aspirin) 81 mg DAILY PO ; Start 11/15/18 at 09:00; Status UNV Bupropion HCl (Wellbutrin Sr) 150 mg BID PO Last administered on 11/15/18at 0 8:32; Admin Dose 150 MG; Start 11/14/18 at 21:00 Clopidogrel Bisulfate (plaVIX) 75 mg DAILY PO ; Start 11/15/18 at 09:00; Status UNV Polyethylene Glycol (Miralax) 17 gm BID PO Last administered on 11/15/18at 08:34; Admin Dose 17 GM; Start 11/14/18 at 21:00 Sucralfate (Carafate) 1 gm AC MEALS AND BEDTIME PO Last administered on 11/15/18at 13:23; Admin Dose 1 GM; Start 11/14/18 at 17:35 Zinc Sulfate (Zinc Sulfate) 220 mg DAILY PO Last administered on 11/15/18at 08:33; Admin Dose 220 MG; Start 11/15/18 at 09:00 Multivitamins/ Minerals (Theragran-M) 1 tab DAILY PO Last administered on 11/15/18at 08:34; Admin Dose 1 TAB; Start 11/15/18 at 09:[address] Nov 15, 2018 14:39
[2018-11-15 14:47] VITALS: BP 176/79; PULSE 81; RESP 16
--- NOTE | 2018-11-15 16:26 | CONS ---
Assessment/Plan Assessment/Plan Hospital Course (Demo Recall) ID PROGRESS NOTE CURRENT ABX: DAY # Vanco IV + Cefepime 11/15/18 0502 11/15/18 0502 24H INTERVAL SUMMARY * Awake, alert, responsive, no fevers, VSS, NAD, without dyspnea on room air, feeling better, no c/o * s/p left foot I&D 11/13/18-> Wound and tissue cx (-) 24H POD #1 DATE: 11/13/18 TIME: 19:24 * Preoperative Diagnosis Left foot ulceration OM left foot Dm2 with PN Charcot left foot DFU left foot Postoperative Diagnosis: same * Operation/Procedure Performed Left foot debridement of heel skin, subcut, ligament 4x 5 cm Left foot debridement of skin, subcut, bone dorsal foot 10 x 8 cm Left foot application of integra Left foot local rotation flap closure 1st MPJ Left foot local rotation flap closure 5th MPJ Biopsy of bone 5th metatarsal MICRO * 11/13/18 LEFT FOOT TISSUE BX (+) TISSUE (BIOPSY) CULTURE Preliminary Organism 1 PSEUDOMONAS SPECIES QUANTITY 3+ * 11/13/18 LEFT FOOT CX (+)WOUND CULTURE Preliminary Organism 1 PSEUDOMONAS SPECIES QUANTITY SCANT GROWTH * 10/05/18 WOUND CX: WOUND CULTURE Final Organism 1 ENTEROBACTER CLOACAE QUANTITY 3+ Organism 2 K.PNEUMONIAE SSP PNEUMONIAE QUANTITY 1+ Organism 3 ENTEROCOCCUS SPECIES QUANTITY ISOLATED FROM BROTH ONLY Organism 4 PROTEUS MIRABILIS QUANTITY 2+ E CLOACAE K PNE SPP ENT SPS M.I.C. RX M.I.C. RX M.I.C. RX --------- --- --------- --- --------- --- AMPICILLIN <=2 S CEFAZOLIN <=4 S CEFOTAXIME S S CIPROFLOXACIN <=0.25 S <=0.25 S GENTAMICIN <=1 S <=1 S LEVOFLOXACIN <=0.12 S <=0.12 S PENICILLIN-G 4 S VANCOMYCIN 1 S TOBRAMYCIN <=1 S <=1 S TRIMETHOPRIM/SULFAMETHOXAZOLE <=20 S <=20 S * 10/04/18 BCX (+) Organism 1 ENTEROBACTER CLOACAE Organism 2 BACILLUS SPECIES E CLOACAE M.I.C. RX --------- --- CEFOTAXIME S CIPROFLOXACIN <=0.25 S GENTAMICIN <=1 S LEVOFLOXACIN <=0.12 S TOBRAMYCIN <=1 S TRIMETHOPRIM/SULFAMETHOXAZOLE <=20 S PIPERACILLIN/TAZOBACTAM <=4 S * 08/09/18 BCX (-) 24h * 08/18/18 LEFT FOOT INTRA-OP CX: WOUND CULTURE Final Organism 1 METHICILLIN RESISTANT S.AUREUS PHYSICAL EXAMINATION: GENERAL: Afebrile, VSS, A/A/O HEENT: AT, NC, anicteric NECK: Supple, CHEST: Equal chest rise bilaterally, without dyspnea on observation HEART: Pulse RRR ABDOMEN: Soft / NT EXTREMITIES: Warm, dry - Left foot DSG C/D/I (+)LUEXT edema SKIN: No rash, no diaphoresis ID ASSESSMENT 53 yo F admit with: 1. SIRS s/ persistent leukocytosis -> S/p sepsis with bacteremia on admission likely secondary to #2 & #3 2. POD #1 DATE: 11/13/18 TIME: 19:24 * Preoperative Diagnosis Left foot ulceration OM left foot Dm2 with PN Charcot left foot DFU left foot Postoperative Diagnosis: same * Operation/Procedure Performed Left foot debridement of heel skin, subcut, ligament 4x 5 cm Left foot debridement of skin, subcut, bone dorsal foot 10 x 8 cm Left foot application of integra Left foot local rotation flap closure 1st MPJ Left foot local rotation flap closure 5th MPJ Biopsy of bone 5th metatarsal 4. Diabetes type 2 w/complication of DM peripheral neuropathy 5. Peripheral arterial disease 6. Acute kidney insufficiency on CKD 7. History of transaminitis secondary to Daptomycin 8. Anemia of chronic disease and iron deficiency 9. Essential HTN w/hx of HTN urgency 10. Hx of Left upper extremity thrombus w/edema 11. Hypercoagulable state 12. Hx of COPD-Asthma = asymptomatic 13. OPIOID INDUCED CONSTIPATION * s/p vasovagal episode in setting of opioid constipation while attempting to pass stool on commode 14. CAD and Hx of HF -- stable 15. S/P Pseudomonas and E. coli UTI = S/P TREATED (-)MRSA Nares ABX ALLERGIES: NKDA INVASIVES: PICC ->Right upper extremity PICC line, present on admission, FC CURRENT ABX: DAY # =Vanco IV + Cefepime s/p Ampicillin + Levaquin ID RECOMMENDATIONS/PLAN: 1. Continue current ABX and follow APC recommendations 2. Wound is growing PSAR -- pending C&S results -- will f/u tomorrow . Consultation Date/Type/Reason Admit Date/Time Nov 12, 2018 at 20:14 Initial Consult Date Date/Time of Note DATE: 11/15/18 TIME: 16:23 Exam/Review of Systems Exam Vitals Vital Signs Date Temp Pulse Resp B/P (MAP) Pulse Ox O2 O2 Flow FiO2 Time Delivery Rate 11/15/18 98.0 81 16 176/79 94 14:47 (111) 11/14/18 Room Air 14:15 11/13/18 2.0 00:20 Intake and Output 11/14/18 11/14/18 11/15/18 1515:00 23:00 07:00 IntakeIntake Total 1360 ml 900 ml 850 ml BalanceBalance 1360 ml 900 ml 850 ml Results Result Diagram: 11/15/18 0502 11/15/18 0502 Results 24hrs Laboratory Tests Test 11/14/18 17:07 11/14/18 21:04 11/15/18 05:02 11/15/18 08:14 Bedside Glucose 117 174 121 White Blood Count 6.8 Red Blood Count 3.46 L Hemoglobin 9.7 L Hematocrit 30.7 L Mean Corpuscular 88.7 Volume Mean Corpuscular 28.0 L Hemoglobin Mean Corpuscular 31.6 L Hemoglobin Concent Red Cell 13.4 Distribution Width Platelet Count 184 Mean Platelet Volume 11.9 H Immature 0.300 Granulocytes % Neutrophils % 69.0 Lymphocytes % 21.2 Monocytes % 7.5 Eosinophils % 1.6 Basophils % 0.4 Nucleated Red Blood 0.0 Cells % Immature 0.020 Granulocytes # Neutrophils # 4.7 Lymphocytes # 1.4 Monocytes # 0.5 Eosinophils # 0.1 Basophils # 0.0 Nucleated Red Blood 0.0 Cells # Sodium Level 141 Potassium Level 3.8 Chloride Level 107 Carbon Dioxide Level 30 Anion Gap 4 L Blood Urea Nitrogen 14 Creatinine 1.04 H Est Glomerular 55 L Filtrat Rate mL/min Glucose Level 78 Calcium Level 8.3 L Phosphorus Level 3.8 Magnesium Level 1.6 L Test 11/15/18 08:19 11/15/18 12:06 Vancomycin Level 15.5 Trough Bedside Glucose 106 Medications Medication Current Medications Cefepime HCl 50 ml @ 100 mls/hr Q12 IVPB Last administered on 11/15/18 08:34; Admin Dose 100 MLS/HR; Start 11/13/18 at 09:00 Vancomycin HCl (Vanco Iv Per Pharmacy) VANCOMYCIN PER PHARMACY PER PROTOCOL XX ; Start 11/12/18 at 22:00 Amlodipine Besylate (Norvasc) 10 mg DAILY PO Last administered on 11/15/18 08:33; Admin Dose 10 MG; Start 11/13/18 at 09:00 Ascorbic Acid (Vitamin C) 500 mg DAILY PO Last administered on 11/15/18 08:34; Admin Dose 500 MG; Start 11/13/18 at 09:00 Atorvastatin Calcium (Lipitor) 40 mg HS PO Last administered on 11/14/18 20:56; Admin Dose 40 MG; Start 11/13/18 at 21:00 Carvedilol (Coreg) 12.5 mg BID PO Last administered on 11/15/18 08:34; Admin Dose 12.5 MG; Start 11/12/18 at 22:00 Hydralazine HCl (Apresoline) 75 mg TID PO Last administered on 11/15/18 13:28; Admin Dose 75 MG; Start 11/13/18 at 09:00 Lisinopril (Zestril) 20 mg DAILY PO Last administered on 11/15/18 08:33; Admin Dose 20 MG; Start 11/13/18 at 09:00 Montelukast Sodium (Singulair) 10 mg HS PO Last administered on 11/14/18 20:57; Admin Dose 10 MG; Start 11/13/18 at 21:00 Sodium Chloride 1,000 ml @ 50 mls/hr Q20H IV Last administered on 11/15/18at 10:30; Admin Dose 50 MLS/HR; Start 11/12/18 at 22:00 IV Flush (NS 3 ml) 3 ml PER PROTOCOL IV ; Start 11/12/18 at 22:00 Ondansetron HCl (Zofran Inj) 4 mg Q6H PRN IV NAUSEA/VOMITING; Start 11/12/18 at 22:00 Acetaminophen (Tylenol Tab) 650 mg Q6H PRN PO .PAIN 1-3 OR TEMP; Start 11/12/18 at 22:00 Acetaminophen/ Hydrocodone Bitart ([place] (5/325)) 1 tab Q6H PRN PO .PAIN 4-6; Start 11/12/18 at 22:00 Morphine Sulfate (morphine) 2 mg Q4H PRN IV .PAIN 7-10 Last administered on 11/14/18at 05:09; Admin Dose 2 MG; Start 11/12/18 at 22:00 Pantoprazole (Protonix Iv) 40 mg DAILY@06 IV Last administered on 11/15/18at 05:42; Admin Dose 40 MG; Start 11/13/18 at 06:00 Hydralazine HCl (Apresoline) 10 mg Q4H PRN IV ELEVATED BLOOD PRESSURE Last administered on 11/13/18at 20:03; Admin Dose 10 MG; Start 11/13/18 at 00:00 Miscellaneous Information ([facility] This patient rodríguez... PRN PRN XX WOUND CARE; Start 11/13/18 at 06:30 Nystatin (Nystatin Powder) 1 applic BID TOP Last administered on 11/15/18at 08:35; Admin Dose 1 APPLIC; Start 11/13/18 at 13:00 Insulin Glargine (Lantus) 12 units DAILY@2000 SC Last administered on 11/14/18at 21:06; Admin Dose 12 UNITS; Start 11/13/18 at 20:00 Diagnostic Test (Pha) (Accu-Chek) 1 ea 02 XX ; Start 11/14/18 at 02:00 Insulin Aspart (Novolog Insulin Pen) NOVOLOG *MILD* ALGORITHM WITH MEALS BEDTIME SC ; Start 11/14/18 at 08:00 Miscellaneous Information 1 ea NOTE XX ; Start 11/14/18 at 00:30 Glucose (Glutose) 15 gm Q15M PRN PO DECREASED GLUCOSE; Start 11/14/18 at 00:30 Glucose (Glutose) 22.5 gm Q15M PRN PO DECREASED GLUCOSE; Start 11/14/18 at 00:30 Dextrose (D50w Syringe) 25 ml Q15M PRN IV DECREASED GLUCOSE; Start 11/14/18 at 00:30 Dextrose (D50w Syringe) 50 ml Q15M PRN IV DECREASED GLUCOSE; Start 11/14/18 at 00:30 Glucagon (Glucagen) 1 mg Q15M PRN IM DECREASED GLUCOSE; Start 11/14/18 at 00:30 Glucose (Glutose) 15 gm Q15M PRN BUCCAL DECREASED GLUCOSE Last administered on 11/14/18 08:14; Admin Dose 15 GM; Start 11/14/18 at 00:30 Vancomycin/Sodium Chloride 250 ml @ 125 mls/hr Q12H IVPB Last administered on 11/15/18at 10:29; Admin Dose 125 MLS/HR; Start 11/14/18 at 09:30 Aspirin (Aspirin) 81 mg DAILY PO ; Start 11/15/18 at 09:00; Status UNV Bupropion HCl (Wellbutrin Sr) 150 mg BID PO Last administered on 11/15/18 08:32; Admin Dose 150 MG; Start 11/14/18 at 21:00 Clopidogrel Bisulfate (plaVIX) 75 mg DAILY PO ; Start 11/15/18 at 09:00; Status UNV Polyethylene Glycol (Miralax) 17 gm BID PO Last administered on 11/15/18 08:34; Admin Dose 17 GM; Start 11/14/18 at 21:00 Sucralfate (Carafate) 1 gm AC MEALS AND BEDTIME PO Last administered on 11/15/18 13:23; Admin Dose 1 GM; Start 11/14/18 at 17:35 Zinc Sulfate (Zinc Sulfate) 220 mg DAILY PO Last administered on 11/15/18 08:33; Admin Dose 220 MG; Start 11/15/18 at 09:00 Multivitamins/ Minerals (Theragran-M) 1 tab DAILY PO Last administered on 11/15/18 08:34; Admin Dose 1 TAB; Start 11/15/18 at 09:00 Sodium Biphosphate/ Sodium Phosphate (Fleet Enema) 133 ml DAILY PRN [place] CONSTIPATION; Start 11/15/18 at 16:00 BRENT HERRERA NP Nov 15, 2018 16:26
[2018-11-15] MEDS: NA PHOSPHATE/BIPHOS 133 ML ENEMA PR PRN (16:48)
[2018-11-15 20:00] VITALS: BP 173/80; PULSE 79; RESP 18
[2018-11-15] MEDS: ATORVASTATIN 40 MG TAB PO SCH (21:07)
[2018-11-15] MEDS: INSULIN GLARGINE [LANTus] (100 UNITS/ML) SYG SC SCH (21:07)
[2018-11-15] MEDS: MONTELUKAST 10 MG TAB PO SCH (21:10)
[2018-11-15] MEDS ORDERED: MAGNESIUM OXIDE 400 MG TAB PO ONE (22:30)
[2018-11-15] MEDS: BISACODYL 10 MG SUPP PR PRN (23:05)
[2018-11-16] MEDS: ACCU-CHEK XX SCH (02:00)
[2018-11-16 02:10] VITALS: BP 170/79; PULSE 82; RESP 18
[2018-11-16] MEDS: hydrALAzine 20 MG INJ IV PRN (03:39)
[2018-11-16] MEDS: PANTOPRAZOLE 40 MG INJ IV SCH (05:26)
[2018-11-16 06:15] VITALS: BP 159/78; PULSE 83; RESP 18
[2018-11-16] MEDS: SOD CHLORIDE 0.9% 1,000 ML IV SCH (06:18)
[2018-11-16] MEDS: INSULIN ASPART [NOVOLOG] 3 ML PEN SC SCH ×4 (08:00→21:11)
[2018-11-16 08:04] VITALS: BP 178/86; PULSE 83; RESP 16
[2018-11-16] MEDS: POLYETHYLENE GLYCOL 17 GM PACKET PO SCH ×2 (08:34→21:12)
[2018-11-16] MEDS: ASCORBIC ACID 500 MG TAB PO SCH (08:35)
[2018-11-16] MEDS: CEFEPIME 1GM/50 ML (PMX) 50 ML IVPB SCH (08:35)
[2018-11-16] MEDS: BUPROPION (SR) 150 MG TAB PO SCH ×2 (08:35→21:16)
[2018-11-16] MEDS: SUCRALFATE 1 GM TAB PO SCH ×4 (08:36→21:12)
[2018-11-16] MEDS: ZINC SULFATE 220 MG CAP PO SCH (08:36)
[2018-11-16] MEDS: AMLODIPINE 10 MG TAB PO SCH (08:36)
[2018-11-16] MEDS: MULTIVITAMINS/MINERALS TAB PO SCH (08:36)
[2018-11-16] MEDS: LISINOPRIL 20 MG TAB PO SCH (08:37)
[2018-11-16] MEDS: NYSTATIN 30 GM POWDER BTL TOP SCH ×2 (08:37→21:13)
[2018-11-16] MEDS: VANCOMYCIN 750 MG (PMX) 250 ML IVPB SCH ×2 (10:35→22:09)
--- NOTE | 2018-11-16 13:37 | PN ---
Date/Time of Note Date/Time of Note DATE: 11/16/18 TIME: 13:26 Assessment/Plan VTE Prophylaxis Risk score (from Nsg)>0 risk: 4 SCD applied (from Nsg): Yes Pharmacological prophylaxis: LMWH Lines/Catheters IV Catheter Type (from Nrsg): PICC Line Central line still needed: Yes Assessment/Plan Assessment/Plan 1. Left foot wound infection with chronic osteomyelitis, status post surgical debridement, wound care, adjust antibiotics per ID, ?amikacin 2. DM, stable 3. HTN, controlled 4. Dyslipidemia, on lipitor 5. PVD, stable, on aspirin/plavix and lipitor 6. DVT prophylaxis: lovenox Result Diagram: 11/15/18 0502 11/15/18 0502 Results 24hrs Laboratory Tests Test 11/15/18 17:28 11/15/18 21:03 11/16/18 07:58 11/16/18 11:44 Bedside Glucose 152 170 76 127 Subjective 24 Hr Interval Summary Free Text/Dictation no pain. afebrile Exam/Review of Systems Exam Vitals Vital Signs Date Temp Pulse Resp B/P (MAP) Pulse Ox O2 O2 Flow FiO2 Time Delivery Rate 11/16/18 98.0 83 16 178/86 93 08:04 (116) 11/14/18 Room Air 14:15 11/13/18 2.0 00:20 Intake and Output 11/15/18 11/15/18 11/16/18 1515:00 23:00 07:00 IntakeIntake Total 250 ml 1250 ml 1250 ml BalanceBalance 250 ml 1250 ml 1250 ml Constitutional: alert, oriented, well developed Psych: no complaints, nl mood/affect Head: normocephalic, atraumatic Eyes: nl conjunctiva, EOMI, nl lids, nl sclera, PERRL ENMT: nl external ears & nose, nl lips & teeth, nl nasal mucosa & septum Neck: supple, non-tender Respiratory: clear to auscultation, normal air movement; No congested cough, No crackles/rales, No diminished breath sounds, No intercostal retraction, No labored breathing, No respirations, No tactile fremitus, No wheezing, No other Cardiovascular: regular rate and rhythm, nl pulses; No bruits, No diastolic murmur, No edema, No gallop, No irregular rhythm, No jugular venous distention (JVD), No murmurs/extra sounds, No rub, No systolic murmur, No S3, No S4, No other Gastrointestinal: soft, nl liver, spleen, non-tender Extremities: other (left foot wound) Neurological: [employer] II-XII intact, nl mental status, nl speech, nl strength Results Results 24hrs Laboratory Tests Test 11/15/18 17:28 11/15/18 21:03 11/16/18 07:58 11/16/18 11:44 Bedside Glucose 152 170 76 127 Medications Medication Current Medications Cefepime HCl 50 ml @ 100 mls/hr Q12 IVPB Last administered on 11/16/18 08:35; Admin Dose 100 MLS/HR; Start 11/13/18 at 09:00 Vancomycin HCl (Vanco Iv Per Pharmacy) VANCOMYCIN PER PHARMACY PER PROTOCOL XX ; Start 11/12/18 at 22:00 Amlodipine Besylate (Norvasc) 10 mg DAILY PO Last administered on 11/16/18 08:36; Admin Dose 10 MG; Start 11/13/18 at 09:00 Ascorbic Acid (Vitamin C) 500 mg DAILY PO Last administered on 11/16/18 08:35; Admin Dose 500 MG; Start 11/13/18 at 09:00 Atorvastatin Calcium (Lipitor) 40 mg HS PO Last administered on 11/15/18 21:07; Admin Dose 40 MG; Start 11/13/18 at 21:00 Carvedilol (Coreg) 12.5 mg BID PO Last administered on 11/16/18 08:36; Admin Dose 12.5 MG; Start 11/12/18 at 22:00 Hydralazine HCl (Apresoline) 75 mg TID PO Last administered on 11/16/18 08:37; Admin Dose 75 MG; Start 11/13/18 at 09:00 Lisinopril (Zestril) 20 mg DAILY PO Last administered on 11/16/18 08:37; Admin Dose 20 MG; Start 11/13/18 at 09:00 Montelukast Sodium (Singulair) 10 mg HS PO Last administered on 11/15/18 21:10; Admin Dose 10 MG; Start 11/13/18 at 21:00 Sodium Chloride 1,000 ml @ 50 mls/hr Q20H IV Last administered on 11/16/18 06:18; Admin Dose 50 MLS/HR; Start 11/12/18 at 22:00 IV Flush (NS 3 ml) 3 ml PER PROTOCOL IV ; Start 11/12/18 at 22:00 Ondansetron HCl (Zofran Inj) 4 mg Q6H PRN IV NAUSEA/VOMITING; Start 11/12/18 at 22:00 Acetaminophen (Tylenol Tab) 650 mg Q6H PRN PO .PAIN 1-3 OR TEMP; Start 11/12/18 at 22:00 Acetaminophen/ Hydrocodone Bitart ([place] (5/325)) 1 tab Q6H PRN PO .PAIN 4-6; Start 11/12/18 at 22:00 Morphine Sulfate (morphine) 2 mg Q4H PRN IV .PAIN 7-10 Last administered on 11/14/18 05:09; Admin Dose 2 MG; Start 11/12/18 at 22:00 Pantoprazole (Protonix Iv) 40 mg DAILY@06 IV Last administered on 11/16/18 05:26; Admin Dose 40 MG; Start 11/13/18 at 06:00 Hydralazine HCl (Apresoline) 10 mg Q4H PRN IV ELEVATED BLOOD PRESSURE Last administered on 11/16/18 03:39; Admin Dose 10 MG; Start 11/13/18 at 00:00 Miscellaneous Information (Pending [facility] Order For Wound Care) This patient rodríguez... PRN PRN XX WOUND CARE; Start 11/13/18 at 06:30 Nystatin (Nystatin Powder) 1 applic BID TOP Last administered on 11/16/18at 08:37; Admin Dose 1 APPLIC; Start 11/13/18 at 13:00 Insulin Glargine (Lantus) 12 units DAILY@2000 SC Last administered on 11/15/18at 21:07; Admin Dose 12 UNITS; Start 11/13/18 at 20:00 Diagnostic Test (Pha) (Accu-Chek) 1 ea 02 XX ; Start 11/14/18 at 02:00 Insulin Aspart (Novolog Insulin Pen) NOVOLOG *MILD* ALGORITHM WITH MEALS BEDTIME SC Last administered on 11/15/18 17:30; Admin Dose 1 UNIT; Start 11/14/18 at 08:00 Miscellaneous Information 1 ea NOTE XX ; Start 11/14/18 at 00:30 Glucose (Glutose) 15 gm Q15M PRN PO DECREASED GLUCOSE; Start 11/14/18 at 00:30 Glucose (Glutose) 22.5 gm Q15M PRN PO DECREASED GLUCOSE; Start 11/14/18 at 00:30 Dextrose (D50w Syringe) 25 ml Q15M PRN IV DECREASED GLUCOSE; Start 11/14/18 at 00:30 Dextrose (D50w Syringe) 50 ml Q15M PRN IV DECREASED GLUCOSE; Start 11/14/18 at 00:30 Glucagon (Glucagen) 1 mg Q15M PRN IM DECREASED GLUCOSE; Start 11/14/18 at 00:30 Glucose (Glutose) 15 gm Q15M PRN BUCCAL DECREASED GLUCOSE Last administered on 11/14/18at 08:14; Admin Dose 15 GM; Start 11/14/18 at 00:30 Vancomycin/Sodium Chloride 250 ml @ 125 mls/hr Q12H IVPB Last administered on 11/16/18at 10:35; Admin Dose 125 MLS/HR; Start 11/14/18 at 09:30 Aspirin (Aspirin) 81 mg DAILY PO ; Start 11/15/18 at 09:00; Status UNV Bupropion HCl (Wellbutrin Sr) 150 mg BID PO Last administered on 11/16/18at 08:35; Admin Dose 150 MG; Start 11/14/18 at 21:00 Clopidogrel Bisulfate (plaVIX) 75 mg DAILY PO ; Start 11/15/18 at 09:00; Status UNV Polyethylene Glycol (Miralax) 17 gm BID PO Last administered on 11/16/18at 08:34; Admin Dose 17 GM; Start 11/14/18 at 21:00 Sucralfate (Carafate) 1 gm AC MEALS AND BEDTIME PO Last administered on 11/16/18at 11:42; Admin Dose 1 GM; Start 11/14/18 at 17:35 Zinc Sulfate (Zinc Sulfate) 220 mg DAILY PO Last administered on 11/16/18at 08:36; Admin Dose 220 MG; Start 11/15/18 at 09:00 Multivitamins/ Minerals (Theragran-M) 1 tab DAILY PO Last administered on 11/16/18at 08:36; Admin Dose 1 TAB; Start 11/15/18 at 09:00 Sodium Biphosphate/ Sodium Phosphate (Fleet Enema) 133 ml DAILY PRN [place] CONSTIPATION Last administered on 11/15/18at 16:48; Admin Dose 133 ML; Start 11/15/18 at 16:00 Bisacodyl (Dulcolax Supp) 10 mg Q48H PRN [place] CONSTIPATION Last administered on 11/15/18at 23:05; Admin Dose 10 MG; Start 11/15/18 at 20:00 SONAM TAY MD Nov 16, 2018 13:37
[2018-11-16 14:23] VITALS: BP 165/79; PULSE 80; RESP 18
--- NOTE | 2018-11-16 17:01 | CONS ---
Assessment/Plan Assessment/Plan Hospital Course (Demo Recall) ID PROGRESS NOTE CURRENT ABX: DAY # Vanco IV + Cefepime 11/15/18 0502 11/15/18 0502 24H INTERVAL SUMMARY * Clinically status quo -- no new issues -- Awake, alert, responsive, no fevers, VSS, NAD, without dyspnea on room air, feeling better, no c/o * s/p left foot I&D 11/13/18-> Wound and tissue cx (-) 24H POD #1 DATE: 11/13/18 TIME: 19:24 * Preoperative Diagnosis Left foot ulceration OM left foot Dm2 with PN Charcot left foot DFU left foot Postoperative Diagnosis: same * Operation/Procedure Performed Left foot debridement of heel skin, subcut, ligament 4x 5 cm Left foot debridement of skin, subcut, bone dorsal foot 10 x 8 cm Left foot application of integra Left foot local rotation flap closure 1st MPJ Left foot local rotation flap closure 5th MPJ Biopsy of bone 5th metatarsal MICRO * 11/13/18 LEFT FOOT TISSUE BX (+) TISSUE (BIOPSY) CULTURE Final Organism 1 PSEUDOMONAS AERUGINOSA QUANTITY 3+ P.AERUG P.AERUG M.I.C. RX M.I.C. RX --------- --- --------- --- AMIKACIN <=2 S AZTREONAM S CEFEPIME 16 I CEFTAZIDIME >=64 R CIPROFLOXACIN >=4 R GENTAMICIN <=1 S LEVOFLOXACIN >=8 R MEROPENEM 3 S TOBRAMYCIN <=1 S PIPERACILLIN/TAZOBACTAM R * 11/13/18 LEFT FOOT CX (+) WOUND CULTURE Preliminary Organism 1 PSEUDOMONAS AERUGINOSA QUANTITY SCANT GROWTH Organism 2 STAPHYLOCOCCUS SPECIES QUANTITY RARE * 08/18/18 LEFT FOOT INTRA-OP CX: WOUND CULTURE Final Organism 1 METHICILLIN RESISTANT S.AUREUS PHYSICAL EXAMINATION: GENERAL: Afebrile, VSS, A/A/O HEENT: AT, NC, anicteric NECK: Supple, CHEST: Equal chest rise bilaterally, without dyspnea on observation HEART: Pulse RRR ABDOMEN: Soft / NT EXTREMITIES: Warm, dry - Left foot DSG C/D/I (+)LUEXT edema SKIN: No rash, no diaphoresis ID ASSESSMENT 53 yo F admit with: 1. SIRS s/ persistent leukocytosis -> S/p sepsis with bacteremia on admission likely secondary to #2 & #3 2. POD #1 DATE: 11/13/18 TIME: 19:24 * Preoperative Diagnosis Left foot ulceration OM left foot Dm2 with PN Charcot left foot DFU left foot Postoperative Diagnosis: same * Operation/Procedure Performed Left foot debridement of heel skin, subcut, ligament 4x 5 cm Left foot debridement of skin, subcut, bone dorsal foot 10 x 8 cm Left foot application of integra Left foot local rotation flap closure 1st MPJ Left foot local rotation flap closure 5th MPJ Biopsy of bone 5th metatarsal 4. Diabetes type 2 w/complication of DM peripheral neuropathy 5. Peripheral arterial disease 6. Acute kidney insufficiency on CKD 7. History of transaminitis secondary to Daptomycin 8. Anemia of chronic disease and iron deficiency 9. Essential HTN w/hx of HTN urgency 10. Hx of Left upper extremity thrombus w/edema 11. Hypercoagulable state 12. Hx of COPD-Asthma = asymptomatic 13. OPIOID INDUCED CONSTIPATION * s/p vasovagal episode in setting of opioid constipation while attempting to pass stool on commode 14. CAD and Hx of HF -- stable 15. S/P Pseudomonas and E. coli UTI = S/P TREATED (-)MRSA Nares ABX ALLERGIES: NKDA INVASIVES: PICC ->Right upper extremity PICC line, present on admission, FC CURRENT ABX: DAY # =Vanco IV + Cefepime s/p Ampicillin + Levaquin ID RECOMMENDATIONS/PLAN: 1. Continue Vanco -- w/u final STAPH ID C&S still pending 2. Change Cefepime to Azactam as PSAR is developing resistance to Cefepime 3. Follow APC recommendations . Consultation Date/Type/Reason Admit Date/Time Nov 12, 2018 at 20:14 Initial Consult Date Date/Time of Note DATE: 11/16/18 TIME: 16:54 Exam/Review of Systems Exam Vitals Vital Signs Date Temp Pulse Resp B/P (MAP) Pulse Ox O2 O2 Flow FiO2 Time Delivery Rate 11/16/18 99.0 80 18 165/79 96 14:23 (107) 11/14/18 Room Air 14:15 11/13/18 2.0 00:20 Intake and Output 11/15/18 11/15/18 11/16/18 1515:00 23:00 07:00 IntakeIntake Total 250 ml 1250 ml 1250 ml BalanceBalance 250 ml 1250 ml 1250 ml Results Result Diagram: 11/15/18 0502 11/15/18 0502 Results 24hrs Laboratory Tests Test 11/15/18 17:28 11/15/18 21:03 11/16/18 07:58 11/16/18 11:44 Bedside Glucose 152 170 76 127 Medications Medication Current Medications Cefepime HCl 50 ml @ 100 mls/hr Q12 IVPB Last administered on 11/16/18 08:35; Admin Dose 100 MLS/HR; Start 11/13/18 at 09:00 Vancomycin HCl (Vanco Iv Per Pharmacy) VANCOMYCIN PER PHARMACY PER PROTOCOL XX ; Start 11/12/18 at 22:00 Amlodipine Besylate (Norvasc) 10 mg DAILY PO Last administered on 11/16/18 08:36; Admin Dose 10 MG; Start 11/13/18 at 09:00 Ascorbic Acid (Vitamin C) 500 mg DAILY PO Last administered on 11/16/18 08:35; Admin Dose 500 MG; Start 11/13/18 at 09:00 Atorvastatin Calcium (Lipitor) 40 mg HS PO Last administered on 11/15/18 21:07; Admin Dose 40 MG; Start 11/13/18 at 21:00 Carvedilol (Coreg) 12.5 mg BID PO Last administered on 11/16/18 08:36; Admin Dose 12.5 MG; Start 11/12/18 at 22:00 Hydralazine HCl (Apresoline) 75 mg TID PO Last administered on 11/16/18 13:35; Admin Dose 75 MG; Start 11/13/18 at 09:00 Lisinopril (Zestril) 20 mg DAILY PO Last administered on 11/16/18 08:37; Admin Dose 20 MG; Start 11/13/18 at 09:00 Montelukast Sodium (Singulair) 10 mg HS PO Last administered on 11/15/18 21:10; Admin Dose 10 MG; Start 11/13/18 at 21:00 Sodium Chloride 1,000 ml @ 50 mls/hr Q20H IV Last administered on 11/16/18at 06:18; Admin Dose 50 MLS/HR; Start 11/12/18 at 22:00 IV Flush (NS 3 ml) 3 ml PER PROTOCOL IV ; Start 11/12/18 at 22:00 Ondansetron HCl (Zofran Inj) 4 mg Q6H PRN IV NAUSEA/VOMITING; Start 11/12/18 at 22:00 Acetaminophen (Tylenol Tab) 650 mg Q6H PRN PO .PAIN 1-3 OR TEMP; Start 11/12/18 at 22:00 Acetaminophen/ Hydrocodone Bitart ([place] (5/325)) 1 tab Q6H PRN PO .PAIN 4-6; Start 11/12/18 at 22:00 Morphine Sulfate (morphine) 2 mg Q4H PRN IV .PAIN 7-10 Last administered on 11/14/18at 05:09; Admin Dose 2 MG; Start 11/12/18 at 22:00 Hydralazine HCl (Apresoline) 10 mg Q4H PRN IV ELEVATED BLOOD PRESSURE Last administered on 11/16/18at 03:39; Admin Dose 10 MG; Start 11/13/18 at 00:00 Miscellaneous Information (Pending [facility] Order For Wound Care) This patient rodríguez... PRN PRN XX WOUND CARE; Start 11/13/18 at 06:30 Nystatin (Nystatin Powder) 1 applic BID TOP Last administered on 11/16/18at 08:37; Admin Dose 1 APPLIC; Start 11/13/18 at 13:00 Insulin Glargine (Lantus) 12 units DAILY@2000 SC Last administered on 11/15/18at 21:07; Admin Dose 12 UNITS; Start 11/13/18 at 20:00 Diagnostic Test (Pha) (Accu-Chek) 1 ea 02 XX ; Start 11/14/18 at 02:00 Insulin Aspart (Novolog Insulin Pen) NOVOLOG *MILD* ALGORITHM WITH MEALS BEDTIME SC Last administered on 11/15/18at 17:30; Admin Dose 1 UNIT; Start 11/14/18 at 08:00 Miscellaneous Information 1 ea NOTE XX ; Start 11/14/18 at 00:30 Glucose (Glutose) 15 gm Q15M PRN PO DECREASED GLUCOSE; Start 11/14/18 at 00:30 Glucose (Glutose) 22.5 gm Q15M PRN PO DECREASED GLUCOSE; Start 11/14/18 at 00:30 Dextrose (D50w Syringe) 25 ml Q15M PRN IV DECREASED GLUCOSE; Start 11/14/18 at 00:30 Dextrose (D50w Syringe) 50 ml Q15M PRN IV DECREASED GLUCOSE; Start 11/14/18 at 00:30 Glucagon (Glucagen) 1 mg Q15M PRN IM DECREASED GLUCOSE; Start 11/14/18 at 00:30 Glucose (Glutose) 15 gm Q15M PRN BUCCAL DECREASED GLUCOSE Last administered on 11/14/18 08:14; Admin Dose 15 GM; Start 11/14/18 at 00:30 Vancomycin/Sodium Chloride 250 ml @ 125 mls/hr Q12H IVPB Last administered on 11/16/18at 10:35; Admin Dose 125 MLS/HR; Start 11/14/18 at 09:30 Bupropion HCl (Wellbutrin Sr) 150 mg BID PO Last administered on 11/16/18 08:35; Admin Dose 150 MG; Start 11/14/18 at 21:00 Polyethylene Glycol (Miralax) 17 gm BID PO Last administered on 11/16/18 08:34; Admin Dose 17 GM; Start 11/14/18 at 21:00 Sucralfate (Carafate) 1 gm AC MEALS AND BEDTIME PO Last administered on 10/30 05/17at 11:42; Admin Dose 1 GM; Start 11/14/18 at 17:35 Zinc Sulfate (Zinc Sulfate) 220 mg DAILY PO Last administered on 11/16/18 08:36; Admin Dose 220 MG; Start 11/15/18 at 09:00 Multivitamins/ Minerals (Theragran-M) 1 tab DAILY PO Last administered on 11/16/18 08:36; Admin Dose 1 TAB; Start 11/15/18 at 09:00 Sodium Biphosphate/ Sodium Phosphate (Fleet Enema) 133 ml DAILY PRN [place] CONSTIPATION Last administered on 11/15/18at 16:48; Admin Dose 133 ML; Start 11/15/18 at 16:00 Bisacodyl (Dulcolax Supp) 10 mg Q48H PRN [place] CONSTIPATION Last administered on 11/15/18at 23:05; Admin Dose 10 MG; Start 11/15/18 at 20:00 Enoxaparin Sodium (Lovenox) 40 mg DAILY SC ; Start 11/17/18 at 09:00 Pantoprazole (Protonix Tab) 40 mg DAILY@06 PO ; Start 11/17/18 at 06:00 Aspirin (Halfprin) 81 mg DAILY PO ; Start 11/16/18 at 17:00 Clopidogrel Bisulfate (plaVIX) 75 mg DAILY PO ; Start 11/16/18 at 17:00 BRENT HERRERA NP Nov 16, 2018 17:01
[2018-11-16] MEDS: CLOPIDOGREL 75 MG TAB PO SCH (18:06)
[2018-11-16] MEDS: ASPIRIN (EC) 81 MG TAB PO SCH (18:06)
[2018-11-16 20:27] VITALS: BP 150/74; PULSE 100; RESP 18
[2018-11-16] MEDS: INSULIN GLARGINE [LANTus] (100 UNITS/ML) SYG SC SCH (21:10)
[2018-11-16] MEDS: MONTELUKAST 10 MG TAB PO SCH (21:12)
[2018-11-16] MEDS: ATORVASTATIN 40 MG TAB PO SCH (21:12)
[2018-11-16] MEDS: AZTREONAM 1 GM/NS (PMX) 50 ML IVPB SCH (21:31)
[2018-11-17] MEDS: ACCU-CHEK XX SCH (02:00)
[2018-11-17] MEDS: SOD CHLORIDE 0.9% 1,000 ML IV SCH ×2 (02:00→05:49)
[2018-11-17 02:09] VITALS: BP 147/67; PULSE 75; RESP 20
[2018-11-17] MEDS: AZTREONAM 1 GM/NS (PMX) 50 ML IVPB SCH ×3 (05:48→22:30)
[2018-11-17] MEDS: PANTOPRAZOLE (EC) 40 MG TAB PO SCH (05:49)
[2018-11-17 07:22] VITALS: BP 162/73; PULSE 73; RESP 20
[2018-11-17] MEDS: BUPROPION (SR) 150 MG TAB PO SCH ×2 (08:28→20:23)
[2018-11-17] MEDS: SUCRALFATE 1 GM TAB PO SCH ×4 (08:28→20:22)
[2018-11-17] MEDS: AMLODIPINE 10 MG TAB PO SCH (08:28)
[2018-11-17] MEDS: ASCORBIC ACID 500 MG TAB PO SCH (08:28)
[2018-11-17] MEDS: MULTIVITAMINS/MINERALS TAB PO SCH (08:29)
[2018-11-17] MEDS: LISINOPRIL 20 MG TAB PO SCH (08:29)
[2018-11-17] MEDS: ASPIRIN (EC) 81 MG TAB PO SCH (08:29)
[2018-11-17] MEDS: ZINC SULFATE 220 MG CAP PO SCH (08:29)
[2018-11-17] MEDS: POLYETHYLENE GLYCOL 17 GM PACKET PO SCH ×2 (08:29→20:23)
[2018-11-17] MEDS: ENOXAPARIN 40 MG/0.4 ML SYG SC SCH (08:30)
[2018-11-17] MEDS: INSULIN ASPART [NOVOLOG] 3 ML PEN SC SCH ×4 (08:31→20:18)
[2018-11-17] MEDS: CLOPIDOGREL 75 MG TAB PO SCH (08:31)
[2018-11-17] MEDS: NYSTATIN 30 GM POWDER BTL TOP SCH ×2 (08:32→21:42)
[2018-11-17] MEDS: VANCOMYCIN 750 MG (PMX) 250 ML IVPB SCH (08:33)
--- NOTE | 2018-11-17 11:38 | PN ---
Date/Time of Note Date/Time of Note DATE: 11/17/18 TIME: 11:33 Assessment/Plan VTE Prophylaxis Risk score (from Ns)>0 risk: 3 SCD applied (from Ns): Yes Pharmacological prophylaxis: LMWH Lines/Catheters IV Catheter Type (from Nrsg): PICC Line Central line still needed: Yes Assessment/Plan Assessment/Plan 1. Left foot wound infection with chronic osteomyelitis, status post surgical debridement, wound care, adjust antibiotics per ID, ?amikacin 2. DM, stable 3. HTN, increase lisinopril 4. Dyslipidemia, on lipitor 5. PVD, stable, on aspirin/plavix and lipitor 6. DVT prophylaxis: lovenox Result Diagram: 11/15/18 0502 11/17/18 0457 Results 24hrs Laboratory Tests Test 11/16/18 11:44 11/16/18 17:31 11/16/18 21:06 11/17/18 02:11 Bedside Glucose 127 157 184 249 H Test 11/17/18 04:57 11/17/18 08:00 Sodium Level 140 Potassium Level 3.5 Chloride Level 104 Carbon Dioxide Level 26 Anion Gap 10 # Blood Urea Nitrogen 22 H Creatinine 1.20 H Est Glomerular 47 L Filtrat Rate mL/min Glucose Level 189 # Calcium Level 8.3 L Bedside Glucose 147 Subjective 24 Hr Interval Summary Free Text/Dictation no fever Exam/Review of Systems Exam Vitals Vital Signs Date Temp Pulse Resp B/P (MAP) Pulse Ox O2 O2 Flow FiO2 Time Delivery Rate 11/17/18 98.0 73 20 162/73 96 07:22 (102) 11/14/18 Room Air 14:15 Intake and Output 11/16/18 11/16/18 11/17/18 1515:00 23:00 07:00 IntakeIntake Total 700 ml 1170 ml 2200 ml BalanceBalance 700 ml 1170 ml 2200 ml Constitutional: alert, oriented, well developed, non-verbal Psych: no complaints, nl mood/affect Head: normocephalic, atraumatic Eyes: nl conjunctiva, EOMI, nl lids, PERRL ENMT: nl external ears & nose, nl lips & teeth, nl nasal mucosa & septum Neck: supple, non-tender Respiratory: clear to auscultation, normal air movement Cardiovascular: regular rate and rhythm, nl pulses; No bruits, No diastolic murmur, No edema, No gallop, No irregular rhythm, No jugular venous distention (JVD), No murmurs/extra sounds, No rub, No systolic murmur, No S3, No S4, No other Gastrointestinal: soft, nl liver, spleen, non-tender Neurological: BINITROTOLUENE OPERATOR II-XII intact, nl mental status, nl speech, nl strength Results Results 24hrs Laboratory Tests Test 11/16/18 11:44 11/16/18 17:31 11/16/18 21:06 11/17/18 02:11 Bedside Glucose 127 157 184 249 H Test 11/17/18 04:57 11/17/18 08:00 Sodium Level 140 Potassium Level 3.5 Chloride Level 104 Carbon Dioxide Level 26 Anion Gap 10 # Blood Urea Nitrogen 22 H Creatinine 1.20 H Est Glomerular 47 L Filtrat Rate mL/min Glucose Level 189 # Calcium Level 8.3 L Bedside Glucose 147 Medications Medication Current Medications Vancomycin HCl (Vanco Iv Per Pharmacy) VANCOMYCIN PER PHARMACY PER PROTOCOL XX ; Start 11/12/18 at 22:00 Amlodipine Besylate (Norvasc) 10 mg DAILY PO Last administered on 11/17/18 08:28; Admin Dose 10 MG; Start 11/13/18 at 09:00 Ascorbic Acid (Vitamin C) 500 mg DAILY PO Last administered on 11/17/18 08:28; Admin Dose 500 MG; Start 11/13/18 at 09:00 Atorvastatin Calcium (Lipitor) 40 mg HS PO Last administered on 11/16/18 21:12; Admin Dose 40 MG; Start 11/13/18 at 21:00 Carvedilol (Coreg) 12.5 mg BID PO Last administered on 11/17/18 08:28; Admin Dose 12.5 MG; Start 11/12/18 at 22:00 Hydralazine HCl (Apresoline) 75 mg TID PO Last administered on 11/17/18 08:27; Admin Dose 75 MG; Start 11/13/18 at 09:00 Lisinopril (Zestril) 20 mg DAILY PO Last administered on 11/17/18 08:29; Admin Dose 20 MG; Start 11/13/18 at 09:00 Montelukast Sodium (Singulair) 10 mg HS PO Last administered on 11/16/18 21:12; Admin Dose 10 MG; Start 11/13/18 at 21:00 Sodium Chloride 1,000 ml @ 50 mls/hr Q20H IV Last administered on 11/17/18 05:49; Admin Dose 50 MLS/HR; Start 11/12/18 at 22:00 IV Flush (NS 3 ml) 3 ml PER PROTOCOL IV ; Start 11/12/18 at 22:00 Ondansetron HCl (Zofran Inj) 4 mg Q6H PRN IV NAUSEA/VOMITING; Start 11/12/18 at 22:00 Acetaminophen (Tylenol Tab) 650 mg Q6H PRN PO .PAIN 1-3 OR TEMP; Start 11/12/18 at 22:00 Acetaminophen/ Hydrocodone Bitart ([place] (5/325)) 1 tab Q6H PRN PO .PAIN 4-6 Last administered on 11/17/18 09:43; Admin Dose 1 TAB; Start 11/12/18 at 22:00 Morphine Sulfate (morphine) 2 mg Q4H PRN IV .PAIN 7-10 Last administered on 11/14/18 05:09; Admin Dose 2 MG; Start 11/12/18 at 22:00 Hydralazine HCl (Apresoline) 10 mg Q4H PRN IV ELEVATED BLOOD PRESSURE Last administered on 11/16/18 03:39; Admin Dose 10 MG; Start 11/13/18 at 00:00 Miscellaneous Information (Pending [facility] Order For Wound Care) This patient rodríguez... PRN PRN XX WOUND CARE; Start 11/13/18 at 06:30 Nystatin (Nystatin Powder) 1 applic BID TOP Last administered on 11/17/18 08:32; Admin Dose 1 APPLIC; Start 11/13/18 at 13:00 Insulin Glargine (Lantus) 12 units DAILY@2000 SC Last administered on 11/16/18 21:10; Admin Dose 12 UNITS; Start 11/13/18 at 20:00 Diagnostic Test (Pha) (Accu-Chek) 1 ea 02 XX ; Start 11/14/18 at 02:00 Insulin Aspart (Novolog Insulin Pen) NOVOLOG *MILD* ALGORITHM WITH MEALS BEDTIME SC Last administered on 11/17/18 08:31; Admin Dose 1 UNIT; Start at 08:00 Miscellaneous Information 1 ea NOTE XX ; Start 11/14/18 at 00:30 Glucose (Glutose) 15 gm Q15M PRN PO DECREASED GLUCOSE; Start 11/14/18 at 00:30 Glucose (Glutose) 22.5 gm Q15M PRN PO DECREASED GLUCOSE; Start 11/14/18 at 00:30 Dextrose (D50w Syringe) 25 ml Q15M PRN IV DECREASED GLUCOSE; Start 11/14/18 at 00:30 Dextrose (D50w Syringe) 50 ml Q15M PRN IV DECREASED GLUCOSE; Start 11/14/18 at 00:30 Glucagon (Glucagen) 1 mg Q15M PRN IM DECREASED GLUCOSE; Start 11/14/18 at 00:30 Glucose (Glutose) 15 gm Q15M PRN BUCCAL DECREASED GLUCOSE Last administered on 11/14/18at 08:14; Admin Dose 15 GM; Start 11/14/18 at 00:30 Vancomycin/Sodium Chloride 250 ml @ 125 mls/hr Q12H IVPB Last administered on 11/17/18 08:33; Admin Dose 125 MLS/HR; Start 11/14/18 at 09:30 Bupropion HCl (Wellbutrin Sr) 150 mg BID PO Last administered on 11/17/18 08:28; Admin Dose 150 MG; Start 11/14/18 at 21:00 Polyethylene Glycol (Miralax) 17 gm BID PO Last administered on 11/17/18 08:29; Admin Dose 17 GM; Start 11/14/18 at 21:00 Sucralfate (Carafate) 1 gm AC MEALS AND BEDTIME PO Last administered on 11/17/18 08:28; Admin Dose 1 GM; Start 11/14/18 at 17:35 Zinc Sulfate (Zinc Sulfate) 220 mg DAILY PO Last administered on 11/17/18 08:29; Admin Dose 220 MG; Start 11/15/18 at 09:00 Multivitamins/ Minerals (Theragran-M) 1 tab DAILY PO Last administered on 11/17/18 08:29; Admin Dose 1 TAB; Start 11/15/18 at 09:00 Sodium Biphosphate/ Sodium Phosphate (Fleet Enema) 133 ml DAILY PRN [place] CONSTIP ATION Last administered on 11/15/18at 16:48; Admin Dose 133 ML; Start 11/15/18 at 16:00 Bisacodyl (Dulcolax Supp) 10 mg Q48H PRN [place] CONSTIPATION Last administered on 11/15/18 23:05; Admin Dose 10 MG; Start 11/15/18 at 20:00 Enoxaparin Sodium (Lovenox) 40 mg DAILY SC Last administered on 11/17/18 08:30; Admin Dose 40 MG; Start 11/17/18 at 09:00 Pantoprazole (Protonix Tab) 40 mg DAILY@06 PO Last administered on 11/17/18 05:49; Admin Dose 40 MG; Start 11/17/18 at 06:00 Aspirin (Halfprin) 81 mg DAILY PO Last administered on 11/17/18 08:29; Admin Dose 81 MG; Start 11/16/18 at 17:00 Clopidogrel Bisulfate (plaVIX) 75 mg DAILY PO Last administered on 11/17/18 08:31; Admin Dose 75 MG; Start 11/16/18 at 17:00 Aztreonam 50 ml @ 100 mls/hr Q8 IVPB Last administered on 11/17/18at 05:48; Admin Dose 100 MLS/HR; Start 11/16/18 at 22:00 Miscellaneous Information (*Rx Drug Level Order Reminder*) VANCOMYCIN TROUGH AT 2030 ONCE ONCE XX ; Start 11/17/18 at 20:30; Stop 11/17/18 at 20:31 SONAM TAY MD Nov 17, 2018 11:38
[2018-11-17] MEDS: BISACODYL 10 MG SUPP PR PRN ×2 (13:15→22:38)
[2018-11-17 14:00] VITALS: BP 180/88; PULSE 78; RESP 20
[2018-11-17] MEDS: morphine 2 MG INJ IV PRN (14:50)
--- NOTE | 2018-11-17 16:28 | CONS ---
Assessment/Plan Assessment/Plan Hospital Course (Demo Recall) ID PROGRESS NOTE CURRENT ABX: DAY # Vanco IV + AZACTAM #2 Cefepime ->DC' 11/1611/15/18 0502 11/17/18 0457 24H INTERVAL SUMMARY * ABX adjusted yesterday as MDRO PSAR growing in wound is resistant to Cefepime * Awake, alert, doing well -- worked with PTx today on ROM and strength exercises * no fevers, VSS, NAD, without dyspnea on room air, feeling better, no c/o * s/p left foot I&D 11/13/18-> Wound and tissue cx (-) 24H MICRO * 11/13/18 LEFT FOOT TISSUE BX (+) TISSUE (BIOPSY) CULTURE Final Organism 1 PSEUDOMONAS AERUGINOSA QUANTITY 3+ P.AERUG P.AERUG M.I.C. RX M.I.C. RX --------- --- --------- --- AMIKACIN <=2 S AZTREONAM S CEFEPIME 16 I CEFTAZIDIME >=64 R CIPROFLOXACIN >=4 R GENTAMICIN <=1 S LEVOFLOXACIN >=8 R MEROPENEM 3 S TOBRAMYCIN <=1 S PIPERACILLIN/TAZOBACTAM R * 11/13/18 LEFT FOOT CX (+)OUND CULTURE Final Organism 1 PSEUDOMONAS AERUGINOSA QUANTITY SCANT GROWTH Organism 2 COAGULASE NEGATIVE STAPH QUANTITY RARE PHYSICAL EXAMINATION: GENERAL: Afebrile, VSS, A/A/O HEENT: AT, NC, anicteric NECK: Supple, CHEST: Equal chest rise bilaterally, without dyspnea on observation HEART: Pulse RRR ABDOMEN: Soft / NT EXTREMITIES: Warm, dry - Left foot DSG C/D/I (+)LUEXT edema SKIN: No rash, no diaphoresis ID ASSESSMENT 53 yo F admit with: 1. SIRS s/ persistent leukocytosis -> S/p sepsis with bacteremia on admission likely secondary to #2 & #3 => RESOLVED 2. POD # 11/13/18 => RESOLVED * Preoperative Diagnosis Left foot ulceration OM left foot Dm2 with PN Charcot left foot DFU left foot Postoperative Diagnosis: same * Operation/Procedure Performed Left foot debridement of heel skin, subcut, ligament 4x 5 cm Left foot debridement of skin, subcut, bone dorsal foot 10 x 8 cm Left foot application of integra Left foot local rotation flap closure 1st MPJ Left foot local rotation flap closure 5th MPJ Biopsy of bone 5th metatarsal 4. Diabetes type 2 w/complication of DM peripheral neuropathy 5. Peripheral arterial disease 6. Acute kidney insufficiency on CKD 7. History of transaminitis secondary to Daptomycin 8. Anemia of chronic disease and iron deficiency 9. Essential HTN w/hx of HTN urgency 10. Hx of Left upper extremity thrombus w/edema 11. Hypercoagulable state 12. Hx of COPD-Asthma = asymptomatic 13. OPIOID INDUCED CONSTIPATION * s/p vasovagal episode in setting of opioid constipation while attempting to pass stool on commode 14. CAD and Hx of HF -- stable 15. S/P Pseudomonas and E. coli UTI = S/P TREATED (-)MRSA Nares ABX ALLERGIES: NKDA INVASIVES: PICC ->Right upper extremity PICC line, present on admission, FC CURRENT ABX: DAY # =Vanco IV + AZACTAM #2 s/p Cefepime s/p Ampicillin + Levaquin ID RECOMMENDATIONS/PLAN: 1. Continue Vanco + Azactam as PSAR is developing resistance to Cefepime = A nticipate 4-6 weeks 3. Follow APC recommendations . Consultation Date/Type/Reason Admit Date/Time Nov 12, 2018 at 20:14 Initial Consult Date Date/Time of Note DATE: 11/17/18 TIME: 16:23 Exam/Review of Systems Exam Vitals Vital Signs Date Temp Pulse Resp B/P (MAP) Pulse Ox O2 O2 Flow FiO2 Time Delivery Rate 11/17/18 98.4 78 20 180/88 96 14:00 (118) 11/14/18 Room Air 14:15 Intake and Output 11/16/18 11/16/18 11/17/18 1515:00 23:00 07:00 IntakeIntake Total 700 ml 1170 ml 2200 ml BalanceBalance 700 ml 1170 ml 2200 ml Results Result Diagram: 11/15/18 0502 11/17/18 0457 Results 24hrs Laboratory Tests Test 11/16/18 17:31 11/16/18 21:06 11/17/18 02:11 11/17/18 04:57 Bedside Glucose 157 184 249 H Sodium Level 140 Potassium Level 3.5 Chloride Level 104 Carbon Dioxide Level 26 Anion Gap 10 # Blood Urea Nitrogen 22 H Creatinine 1.20 H Est Glomerular 47 L Filtrat Rate mL/min Glucose Level 189 # Calcium Level 8.3 L Test 11/17/18 08:00 11/17/18 11:58 Bedside Glucose 147 164 Medications Medication Current Medications Vancomycin HCl (Vanco Iv Per Pharmacy) VANCOMYCIN PER PHARMACY PER PROTOCOL XX ; Start 11/12/18 at 22:00 Amlodipine Besylate (Norvasc) 10 mg DAILY PO Last administered on 11/17/18 08:28; Admin Dose 10 MG; Start 11/13/18 at 09:00 Ascorbic Acid (Vitamin C) 500 mg DAILY PO Last administered on 11/17/18 08:28; Admin Dose 500 MG; Start 11/13/18 at 09:00 Atorvastatin Calcium (Lipitor) 40 mg HS PO Last administered on 11/16/18 21:12; Admin Dose 40 MG; Start 11/13/18 at 21:00 Carvedilol (Coreg) 12.5 mg BID PO Last administered on 11/17/18 08:28; Admin Dose 12.5 MG; Start 11/12/18 at 22:00 Hydralazine HCl (Apresoline) 75 mg TID PO Last administered on 11/17/18 12:50; Admin Dose 75 MG; Start 11/13/18 at 09:00 Montelukast Sodium (Singulair) 10 mg HS PO Last administered on 11/16/18 21:12; Admin Dose 10 MG; Start 11/13/18 at 21:00 Sodium Chloride 1,000 ml @ 50 mls/hr Q20H IV Last administered on 11/17/18 05:49; Admin Dose 50 MLS/HR; Start 11/12/18 at 22:00 IV Flush (NS 3 ml) 3 ml PER PROTOCOL IV ; Start 11/12/18 at 22:00 Ondansetron HCl (Zofran Inj) 4 mg Q6H PRN IV NAUSEA/VOMITING; Start 11/12/18 at 22:00 Acetaminophen (Tylenol Tab) 650 mg Q6H PRN PO .PAIN 1-3 OR TEMP; Start 11/12/18 at 22:00 Acetaminophen/ Hydrocodone Bitart ([place] (5/325)) 1 tab Q6H PRN PO .PAIN 4-6 Last administered on 11/17/18at 09:43; Admin Dose 1 TAB; Start 11/12/18 at 22:00 Morphine Sulfate (morphine) 2 mg Q4H PRN IV .PAIN 7-10 Last administered on 11/17/18at 14:50; Admin Dose 2 MG; Start 11/12/18 at 22:00 Hydralazine HCl (Apresoline) 10 mg Q4H PRN IV ELEVATED BLOOD PRESSURE Last adm inistered on 11/16/18at 03:39; Admin Dose 10 MG; Start 11/13/18 at 00:00 Miscellaneous Information (Pending [facility] Order For Wound Care) This patient rodríguez... PRN PRN XX WOUND CARE; Start 11/13/18 at 06:30 Nystatin (Nystatin Powder) 1 applic BID TOP Last administered on 11/17/18at 08:32; Admin Dose 1 APPLIC; Start 11/13/18 at 13:00 Insulin Glargine (Lantus) 12 units DAILY@2000 SC Last administered on 11/16/18 21:10; Admin Dose 12 UNITS; Start 11/13/18 at 20:00 Diagnostic Test (Pha) (Accu-Chek) 1 ea 02 XX ; Start 11/14/18 at 02:00 Insulin Aspart (Novolog Insulin Pen) NOVOLOG *MILD* ALGORITHM WITH MEALS BEDTIME SC Last administered on 11/17/18at 12:45; Admin Dose 1 UNIT; Start 11/14/18 at 08:00 Miscellaneous Information 1 ea NOTE XX ; Start 11/14/18 at 00:30 Glucose (Glutose) 15 gm Q15M PRN PO DECREASED GLUCOSE; Start 11/14/18 at 00:30 Glucose (Glutose) 22.5 gm Q15M PRN PO DECREASED GLUCOSE; Start 11/14/18 at 00:30 Dextrose (D50w Syringe) 25 ml Q15M PRN IV DECREASED GLUCOSE; Start 11/14/18 at 00:30 Dextrose (D50w Syringe) 50 ml Q15M PRN IV DECREASED GLUCOSE; Start 11/14/18 at 00:30 Glucagon (Glucagen) 1 mg Q15M PRN IM DECREASED GLUCOSE; Start 11/14/18 at 00:30 Glucose (Glutose) 15 gm Q15M PRN BUCCAL DECREASED GLUCOSE Last administered on 11/14/18 08:14; Admin Dose 15 GM; Start 11/14/18 at 00:30 Vancomycin/Sodium Chloride 250 ml @ 125 mls/hr Q12H IVPB Last administered on 11/17/18 08:33; Admin Dose 125 MLS/HR; Start 11/14/18 at 09:30 Bupropion HCl (Wellbutrin Sr) 150 mg BID PO Last administered on 11/17/18 08:28; Admin Dose 150 MG; Start 11/14/18 at 21:00 Polyethylene Glycol (Miralax) 17 gm BID PO Last administered on 11/17/18 08:29; Admin Dose 17 GM; Start 11/14/18 at 21:00 Sucralfate (Carafate) 1 gm AC MEALS AND BEDTIME PO Last administered on 11/17/18 12:44; Admin Dose 1 GM; Start 11/14/18 at 17:35 Zinc Sulfate (Zinc Sulfate) 220 mg DAILY PO Last administered on 11/17/18 08:29; Admin Dose 220 MG; Start 11/15/18 at 09:00 Multivitamins/ Minerals (Theragran-M) 1 tab DAILY PO Last administered on 11/17/18 08:29; Admin Dose 1 TAB; Start 11/15/18 at 09:00 Sodium Biphosphate/ Sodium Phosphate (Fleet Enema) [address] CONSTIPATION Last administered on 11/15/18 16:48; Admin Dose 133 ML; Start 11/15/18 at 16:00 Bisacodyl (Dulcolax Supp) [address] CONSTIPATION Last administered on 11/17/18 13:15; Admin Dose 10 MG; Start 11/15/18 at 20:00 Enoxaparin Sodium (Lovenox) 40 mg DAILY SC Last administered on 11/17/18 08:30; Admin Dose 40 MG; Start 11/17/18 at 09:00 Pantoprazole (Protonix Tab) 40 mg DAILY@06 PO Last administered on 11/17/18 05:49; Admin Dose 40 MG; Start 11/17/18 at 06:00 Aspirin (Halfprin) 81 mg DAILY PO Last administered on 11/17/18at 08:29; Admin Dose 81 MG; Start 11/16/18 at 17:00 Clopidogrel Bisulfate (plaVIX) 75 mg DAILY PO Last administered on 11/17/18at 08:31; Admin Dose 75 MG; Start 11/16/18 at 17:00 Aztreonam 50 ml @ 100 mls/hr Q8 IVPB Last administered on 11/17/18at 13:15; Admin Dose 100 MLS/HR; Start 11/16/18 at 22:00 Miscellaneous Information (*Rx Drug Level Order Reminder*) VANCOMYCIN TROUGH AT 2030 ONCE ONCE XX ; Start 11/17/18 at 20:30; Stop 11/17/18 at 20:31 Lisinopril (Zestril) 40 mg DAILY PO ; Start 11/18/18 at 09:00 BRENT HERRERA NP Nov 17, 2018 16:28
[2018-11-17 20:01] VITALS: BP 185/88; PULSE 80; RESP 18
[2018-11-17] MEDS: INSULIN GLARGINE [LANTus] (100 UNITS/ML) SYG SC SCH (20:17)
[2018-11-17] MEDS: ATORVASTATIN 40 MG TAB PO SCH (20:22)
[2018-11-17] MEDS: MONTELUKAST 10 MG TAB PO SCH (20:22)
[2018-11-17 20:25] VITALS: BP 157/79; PULSE 75
[2018-11-18 01:57] VITALS: BP 156/77; PULSE 76; RESP 20
[2018-11-18] MEDS: ACCU-CHEK XX SCH (02:04)
[2018-11-18] MEDS: VANCOMYCIN 1 GM 250 ML IVPB SCH (05:43)
[2018-11-18] MEDS: SOD CHLORIDE 0.9% 1,000 ML IV SCH (05:44)
[2018-11-18] MEDS: PANTOPRAZOLE (EC) 40 MG TAB PO SCH (05:45)
[2018-11-18] MEDS: INSULIN ASPART [NOVOLOG] 3 ML PEN SC SCH ×4 (08:00→21:01)
[2018-11-18] MEDS: MULTIVITAMINS/MINERALS TAB PO SCH (08:14)
[2018-11-18] MEDS: ZINC SULFATE 220 MG CAP PO SCH (08:14)
[2018-11-18] MEDS: CLOPIDOGREL 75 MG TAB PO SCH (08:14)
[2018-11-18] MEDS: SUCRALFATE 1 GM TAB PO SCH ×4 (08:14→20:57)
[2018-11-18] MEDS: BUPROPION (SR) 150 MG TAB PO SCH ×2 (08:14→21:01)
[2018-11-18] MEDS: AMLODIPINE 10 MG TAB PO SCH (08:14)
[2018-11-18] MEDS: ENOXAPARIN 40 MG/0.4 ML SYG SC SCH (08:14)
[2018-11-18] MEDS: POLYETHYLENE GLYCOL 17 GM PACKET PO SCH ×2 (08:15→20:56)
[2018-11-18] MEDS: ASCORBIC ACID 500 MG TAB PO SCH (08:15)
[2018-11-18] MEDS: ASPIRIN (EC) 81 MG TAB PO SCH (08:16)
[2018-11-18] MEDS: NYSTATIN 30 GM POWDER BTL TOP SCH ×2 (08:19→21:00)
[2018-11-18 08:50] VITALS: BP 160/77; PULSE 80; RESP 18
[2018-11-18] MEDS: AZTREONAM 1 GM/NS (PMX) 50 ML IVPB SCH ×2 (10:02→15:23)
[2018-11-18] MEDS: LISINOPRIL 20 MG TAB PO SCH (10:02)
[2018-11-18 13:50] VITALS: BP 154/75; PULSE 78; RESP 18
--- NOTE | 2018-11-18 14:06 | CONS ---
Assessment/Plan Assessment/Plan Hospital Course (Demo Recall) ID PROGRESS NOTE CURRENT ABX: DAY # Vanco IV + AZACTAM #3 Cefepime ->DC' 11/16 24H INTERVAL SUMMARY * A/A/O -- chronic illness -- chronic dyspepsia w/hx of gastroparesis/gerd == flat affect -- resting comfortably without distress * Awake, alert, doing well -- worked with PTx today on ROM and strength exercises * no fevers, VSS, NAD, without dyspnea on room air * s/p left foot I&D 11/13/18-> Wound and tissue cx (+)PSAR -- prior cx now (+)YEAST/PSAR/CoNS MICRO * 11/13/18 LEFT FOOT TISSUE BX (+) TISSUE (BIOPSY) CULTURE Final Organism 1 PSEUDOMONAS AERUGINOSA QUANTITY 3+ P.AERUG P.AERUG M.I.C. RX M.I.C. RX --------- --- --------- --- AMIKACIN <=2 S AZTREONAM S CEFEPIME 16 I CEFTAZIDIME >=64 R CIPROFLOXACIN >=4 R GENTAMICIN <=1 S LEVOFLOXACIN >=8 R MEROPENEM 3 S TOBRAMYCIN <=1 S PIPERACILLIN/TAZOBACTAM R * 11/13/18 LEFT FOOT CX (+) (+) FUNGAL CULTURE Preliminary Organism 1 YEAST QUANTITY RARE * OUND CULTURE Final Organism 1 PSEUDOMONAS AERUGINOSA QUANTITY SCANT GROWTH Organism 2 COAGULASE NEGATIVE STAPH QUANTITY RARE PHYSICAL EXAMINATION: GENERAL: Afebrile, VSS, A/A/O HEENT: AT, NC, anicteric NECK: Supple, CHEST: Equal chest rise bilaterally, without dyspnea on observation HEART: Pulse RRR ABDOMEN: Soft / NT EXTREMITIES: Warm, dry - Left foot DSG C/D/I (+)LUEXT edema SKIN: No rash, no diaphoresis ID ASSESSMENT 53 yo F admit with: 1. SIRS s/ persistent leukocytosis -> S/p sepsis with bacteremia on admission likely secondary to #2 & #3 => RESOLVED 2. POD # 11/13/18 => TISSUE CX (+) PSAR * Preoperative Diagnosis Left foot ulceration OM left foot Dm2 with PN Charcot left foot DFU left foot Postoperative Diagnosis: same * Operation/Procedure Performed Left foot debridement of heel skin, subcut, ligament 4x 5 cm Left foot debridement of skin, subcut, bone dorsal foot 10 x 8 cm Left foot application of integra Left foot local rotation flap closure 1st MPJ Left foot local rotation flap closure 5th MPJ Biopsy of bone 5th metatarsal 4. Diabetes type 2 w/complication of DM peripheral neuropathy 5. Peripheral arterial disease 6. Acute kidney insufficiency on CKD 7. History of transaminitis secondary to Daptomycin 8. Anemia of chronic disease and iron deficiency 9. Essential HTN w/hx of HTN urgency 10. Hx of Left upper extremity thrombus w/edema 11. Hypercoagulable state 12. Hx of COPD-Asthma = asymptomatic 13. OPIOID INDUCED CONSTIPATION * s/p vasovagal episode in setting of opioid constipation while attempting to pass stool on commode 14. CAD and Hx of HF -- stable 15. S/P Pseudomonas and E. coli UTI = S/P TREATED (-)MRSA Nares ABX ALLERGIES: NKDA INVASIVES: PICC ->Right upper extremity PICC line, present on admission, FC CURRENT ABX: DAY # =Vanco IV + AZACTAM #3 s/p Cefepime s/p Ampicillin + Levaquin ID RECOMMENDATIONS/PLAN: 1. Continue Vanco + Azactam as PSAR is developing resistance to Cefepime = Anticipate 4-6 weeks * May DC when cleared by primary on current ABX to complete 6 weeks 2. Follow APC recommendations . Consultation Date/Type/Reason Admit Date/Time Nov 12, 2018 at 20:14 Initial Consult Date Date/Time of Note DATE: 11/18/18 TIME: 13:59 Exam/Review of Systems Exam Vitals Vital Signs Date Temp Pulse Resp B/P (MAP) Pulse Ox O2 O2 Flow FiO2 Time Delivery Rate 11/18/18 98.2 78 18 154/75 96 13:50 (101) 11/14/18 Room Air 14:15 Intake and Output 11/17/18 11/17/18 11/18/18 1515:00 23:00 07:00 IntakeIntake Total 300 ml 1300 ml 1200 ml BalanceBalance 300 ml 1300 ml 1200 ml Results Result Diagram: 11/18/18 0542 11/18/18 0542 Results 24hrs Laboratory Tests Test 11/17/18 17:13 11/17/18 20:11 11/17/18 20:14 11/18/18 02:13 Bedside Glucose 152 197 139 Vancomycin Level 21.2 *H Trough Test 11/18/18 05:42 11/18/18 08:12 11/18/18 11:40 White Blood Count 6.1 Red Blood Count 3.41 L Hemoglobin 9.4 L Hematocrit 29.8 L Mean Corpuscular 87.4 Volume Mean Corpuscular 27.6 L Hemoglobin Mean Corpuscular 31.5 L Hemoglobin Concent Red Cell 13.1 Distribution Width Platelet Count 217 Mean Platelet Volume 11.3 H Immature 0.300 Granulocytes % Neutrophils % 70.1 Lymphocytes % 19.5 Monocytes % 6.2 Eosinophils % 3.4 Basophils % 0.5 Nucleated Red Blood 0.0 Cells % Immature 0.020 Granulocytes # Neutrophils # 4.3 Lymphocytes # 1.2 Monocytes # 0.4 Eosinophils # 0.2 Basophils # 0.0 Nucleated Red Blood 0.0 Cells # Sodium Level 140 Potassium Level 3.9 Chloride Level 104 Carbon Dioxide Level 27 Anion Gap 9 Blood Urea Nitrogen 22 H Creatinine 1.18 H Est Glomerular 48 L Filtrat Rate mL/min Glucose Level 128 # Calcium Level 8.5 Bedside Glucose 102 130 Medications Medication Current Medications Vancomycin HCl (Vanco Iv Per Pharmacy) VANCOMYCIN PER PHARMACY PER PROTOCOL XX ; Start 11/12/18 at 22:00 Amlodipine Besylate (Norvasc) 10 mg DAILY PO Last administered on 11/18/18at 08:14; Admin Dose 10 MG; Start 11/13/18 at 09:00 Ascorbic Acid (Vitamin C) 500 mg DAILY PO Last administered on 11/18/18at 08:15; Admin Dose 500 MG; Start 11/13/18 at 09:00 Atorvastatin Calcium (Lipitor) 40 mg HS PO Last administered on 11/17/18at 20:22; Admin Dose 40 MG; Start 11/13/18 at 21:00 Carvedilol (Coreg) 12.5 mg BID PO Last administered on 11/18/18at 08:15; Admin Dose 12.5 MG; Start 11/12/18 at 22:00 Hydralazine HCl (Apresoline) 75 mg TID PO Last administered on 11/18/18 13:05; Admin Dose 75 MG; Start 11/13/18 at 09:00 Montelukast Sodium (Singulair) 10 mg HS PO Last administered on 11/17/18 20:22; Admin Dose 10 MG; Start 11/13/18 at 21:00 Sodium Chloride 1,000 ml @ 50 mls/hr Q20H IV Last administered on 11/18/18 05:44; Admin Dose 50 MLS/HR; Start 11/12/18 at 22:00 IV Flush (NS 3 ml) 3 ml PER PROTOCOL IV ; Start 11/12/18 at 22:00 Ondansetron HCl (Zofran Inj) 4 mg Q6H PRN IV NAUSEA/VOMITING; Start 11/12/18 at 22:00 Acetaminophen (Tylenol Tab) 650 mg Q6H PRN PO .PAIN 1-3 OR TEMP; Start 11/12/18 at 22:00 Acetaminophen/ Hydrocodone Bitart ([place] (5/325)) 1 tab Q6H PRN PO .PAIN 4-6 Last administered on 11/17/18 09:43; Admin Dose 1 TAB; Start 11/12/18 at 22:00 Hydralazine HCl (Apresoline) 10 mg Q4H PRN IV ELEVATED BLOOD PRESSURE Last administered on 11/16/18 03:39; Admin Dose 10 MG; Start 11/13/18 at 00:00 Miscellaneous Information (Pending [facility] Order For Wound Care) This patient rodríguez... PRN PRN XX WOUND CARE; Start 11/13/18 at 06:30 Nystatin (Nystatin Powder) 1 applic BID TOP Last administered on 11/18/18 08:19; Admin Dose 1 APPLIC; Start 11/13/18 at 13:00 Insulin Glargine (Lantus) 12 units DAILY@2000 SC Last administered on 11/17/18 20:17; Admin Dose 12 UNITS; Start 11/13/18 at 20:00 Diagnostic Test (Pha) (Accu-Chek) 1 ea 02 XX Last administered on 11/18/18 02:04; Admin Dose 1 EA; Start 11/14/18 at 02:00 Insulin Aspart (Novolog Insulin Pen) NOVOLOG *MILD* ALGORITHM WITH MEALS BEDTIME SC Last administered on 11/17/18 20:18; Admin Dose 1 UNIT; Start 11/14/18 at 08:00 Miscellaneous Information 1 ea NOTE XX ; Start 11/14/18 at 00:30 Glucose (Glutose) 15 gm Q15M PRN PO DECREASED GLUCOSE; Start 11/14/18 at 00:30 Glucose (Glutose) 22.5 gm Q15M PRN PO DECREASED GLUCOSE; Start 11/14/18 at 00:30 Dextrose (D50w Syringe) 25 ml Q15M PRN IV DECREASED GLUCOSE; Start 11/14/18 at 00:30 Dextrose (D50w Syringe) 50 ml Q15M PRN IV DECREASED GLUCOSE; Start 11/14/18 at 00:30 Glucagon (Glucagen) 1 mg Q15M PRN IM DECREASED GLUCOSE; Start 11/14/18 at 00:30 Glucose (Glutose) 15 gm Q15M PRN BUCCAL DECREASED GLUCOSE Last administered on 11/14/18at 08:14; Admin Dose 15 GM; Start 11/14/18 at 00:30 Bupropion HCl (Wellbutrin Sr) 150 mg BID PO Last administered on 11/18/18 08:14; Admin Dose 150 MG; Start 11/14/18 at 21:00 Polyethylene Glycol (Miralax) 17 gm BID PO Last administered on 11/18/18 08:15; Admin Dose 17 GM; Start 11/14/18 at 21:00 Sucralfate (Carafate) 1 gm AC MEALS AND BEDTIME PO Last administered on 11/18/18at 11:47; Admin Dose 1 GM; Start 11/14/18 at 17:35 Zinc Sulfate (Zinc Sulfate) 220 mg DAILY PO Last administered on 11/18/18 08:14; Admin Dose 220 MG; Start 11/15/18 at 09:00 Multivitamins/ Minerals (Theragran-M) 1 tab DAILY PO Last administered on 11/18/18 08:14; Admin Dose 1 TAB; Start 11/15/18 at 09:00 Sodium Biphosphate/ Sodium Phosphate (Fleet Enema) 133 ml DAILY PRN [place] CONSTIPATION Last administered on 11/15/18at 16:48; Admin Dose 133 ML; Start 11/15/18 at 16:00 Bisacodyl (Dulcolax Supp) 10 mg Q48H PRN [place] CONSTIPATION Last administered on 11/17/18 22:38; Admin Dose 10 MG; Start 11/15/18 at 20:00 Enoxaparin Sodium (Lovenox) 40 mg DAILY SC Last administered on 11/18/18 08:14; Admin Dose 40 MG; Start 11/17/18 at 09:00 Pantoprazole (Protonix Tab) 40 mg DAILY@06 PO Last administered on 11/18/18 05:45; Admin Dose 40 MG; Start 11/17/18 at 06:00 Aspirin (Halfprin) 81 mg DAILY PO Last administered on 11/18/18 08:16; Admin Dose 81 MG; Start 11/16/18 at 17:00 Clopidogrel Bisulfate (plaVIX) 75 mg DAILY PO Last administered on 11/18/18 08:14; Admin Dose 75 MG; Start 11/16/18 at 17:00 Lisinopril (Zestril) 40 mg DAILY PO Last administered on 11/18/18 10:02; Admin Dose 40 MG; Start 11/18/18 at 09:00 Vancomycin HCl 250 ml @ 125 mls/hr Q24H IVPB Last administered on 11/18/18 05:43; Admin Dose 125 MLS/HR; Start 11/18/18 at 05:30 Morphine Sulfate (morphine) 6 mg Q4H PRN PO SEVERE PAIN LEVEL 7-10; Start 11/17/18 at 22:30 Aztreonam 50 ml @ 100 mls/hr Q8 IVPB Last administered on 11/18/18 10:02; Admin Dose 100 MLS/HR; Start 11/18/18 at 10:00 BRENT HERRERA NP Nov 18, 2018 14:06
--- NOTE | 2018-11-18 14:52 | PN ---
Date/Time of Note Date/Time of Note DATE: 11/18/18 TIME: 14:47 Assessment/Plan VTE Prophylaxis Risk score (from Ns)>0 risk: 4 SCD applied (from Ns): Yes Pharmacological prophylaxis: LMWH Lines/Catheters IV Catheter Type (from Nrsg): PICC Line Central line still needed: Yes Assessment/Plan Assessment/Plan 1. Left foot wound infection with chronic osteomyelitis, status post surgical debridement, wound care, continue on vancomycin and aztreonam, follow up with podiatry 2. DM, stable 3. HTN, increase hydralazine 4. Dyslipidemia, on lipitor 5. PVD, stable, on aspirin/plavix and lipitor 6. DVT prophylaxis: lovenox Result Diagram: 11/18/18 0542 11/18/18 0542 Results 24hrs Laboratory Tests Test 11/17/18 17:13 11/17/18 20:11 11/17/18 20:14 11/18/18 02:13 Bedside Glucose 152 197 139 Vancomycin Level 21.2 *H Trough Test 11/18/18 05:42 11/18/18 08:12 11/18/18 11:40 White Blood Count 6.1 Red Blood Count 3.41 L Hemoglobin 9.4 L Hematocrit 29.8 L Mean Corpuscular 87.4 Volume Mean Corpuscular 27.6 L Hemoglobin Mean Corpuscular 31.5 L Hemoglobin Concent Red Cell 13.1 Distribution Width Platelet Count 217 Mean Platelet Volume 11.3 H Immature 0.300 Granulocytes % Neutrophils % 70.1 Lymphocytes % 19.5 Monocytes % 6.2 Eosinophils % 3.4 Basophils % 0.5 Nucleated Red Blood 0.0 Cells % Immature 0.020 Granulocytes # Neutrophils # 4.3 Lymphocytes # 1.2 Monocytes # 0.4 Eosinophils # 0.2 Basophils # 0.0 Nucleated Red Blood 0.0 Cells # Sodium Level 140 Potassium Level 3.9 Chloride Level 104 Carbon Dioxide Level 27 Anion Gap 9 Blood Urea Nitrogen 22 H Creatinine 1.18 H Est Glomerular 48 L Filtrat Rate mL/min Glucose Level 128 # Calcium Level 8.5 Bedside Glucose 102 130 Subjective 24 Hr Interval Summary Free Text/Dictation no fever Exam/Review of Systems Exam Vitals Vital Signs Date Temp Pulse Resp B/P (MAP) Pulse Ox O2 O2 Flow FiO2 Time Delivery Rate 11/18/18 98.2 78 18 154/75 96 13:50 (101) 11/14/18 Room Air 14:15 Intake and Output 11/17/18 11/17/18 11/18/18 1414:59 22:59 06:59 IntakeIntake Total 300 ml 1200 ml 1300 ml BalanceBalance 300 ml 1200 ml 1300 ml Constitutional: alert, oriented, well developed Head: normocephalic, atraumatic Eyes: nl conjunctiva, EOMI, nl lids ENMT: nl external ears & nose, nl lips & teeth, nl nasal mucosa & septum Neck: supple, non-tender Respiratory: clear to auscultation, normal air movement; No congested cough, No crackles/rales, No diminished breath sounds, No intercostal retraction, No labored breathing, No respirations, No tactile fremit us, No wheezing, No other Cardiovascular: regular rate and rhythm, nl pulses; No bruits, No diastolic murmur, No edema, No gallop, No irregular rhythm, No jugular venous distention (JVD), No murmurs/extra sounds, No rub, No systolic murmur, No S3, No S4, No other Gastrointestinal: soft, nl liver, spleen, non-tender Extremities: other (left foot wound) Neurological: RETORT FEEDER GROUND BONE II-XII intact, nl mental status, nl speech, nl strength Results Results 24hrs Laboratory Tests Test 11/17/18 17:13 11/17/18 20:11 11/17/18 20:14 11/18/18 02:13 Bedside Glucose 152 197 139 Vancomycin Level 21.2 *H Trough Test 11/18/18 05:42 11/18/18 08:12 11/18/18 11:40 White Blood Count 6.1 Red Blood Count 3.41 L Hemoglobin 9.4 L Hematocrit 29.8 L Mean Corpuscular 87.4 Volume Mean Corpuscular 27.6 L Hemoglobin Mean Corpuscular 31.5 L Hemoglobin Concent Red Cell 13.1 Distribution Width Platelet Count 217 Mean Platelet Volume 11.3 H Immature 0.300 Granulocytes % Neutrophils % 70.1 Lymphocytes % 19.5 Monocytes % 6.2 Eosinophils % 3.4 Basophils % 0.5 Nucleated Red Blood 0.0 Cells % Immature 0.020 Granulocytes # Neutrophils # 4.3 Lymphocytes # 1.2 Monocytes # 0.4 Eosinophils # 0.2 Basophils # 0.0 Nucleated Red Blood 0.0 Cells # Sodium Level 140 Potassium Level 3.9 Chloride Level 104 Carbon Dioxide Level 27 Anion Gap 9 Blood Urea Nitrogen 22 H Creatinine 1.18 H Est Glomerular 48 L Filtrat Rate mL/min Glucose Level 128 # Calcium Level 8.5 Bedside Glucose 102 130 Medications Medication Current Medications Vancomycin HCl (Vanco Iv Per Pharmacy) VANCOMYCIN PER PHARMACY PER PROTOCOL XX ; Start 11/12/18 at 22:00 Amlodipine Besylate (Norvasc) 10 mg DAILY PO Last administered on 11/18/18 08:14; Admin Dose 10 MG; Start 11/13/18 at 09:00 Ascorbic Acid (Vitamin C) 500 mg DAILY PO Last administered on 11/18/18 08:15; Admin Dose 500 MG; Start 11/13/18 at 09:00 Atorvastatin Calcium (Lipitor) 40 mg HS PO Last administered on 11/17/18 20:22; Admin Dose 40 MG; Start 11/13/18 at 21:00 Carvedilol (Coreg) 12.5 mg BID PO Last administered on 11/18/18 08:15; Admin Dose 12.5 MG; Start 11/12/18 at 22:00 Hydralazine HCl (Apresoline) 75 mg TID PO Last administered on 11/18/18 13:05; Admin Dose 75 MG; Start 11/13/18 at 09:00 Montelukast Sodium (Singulair) 10 mg HS PO Last administered on 11/17/18 20:22; Admin Dose 10 MG; Start 11/13/18 at 21:00 Sodium Chloride 1,000 ml @ 50 mls/hr Q20H IV Last administered on 11/18/18at 05:44; Admin Dose 50 MLS/HR; Start 11/12/18 at 22:00 IV Flush (NS 3 ml) 3 ml PER PROTOCOL IV ; Start 11/12/18 at 22:00 Ondansetron HCl (Zofran Inj) 4 mg Q6H PRN IV NAUSEA/VOMITING; Start 11/12/18 at 22:00 Acetaminophen (Tylenol Tab) 650 mg Q6H PRN PO .PAIN 1-3 OR TEMP; Start 11/12/18 at 22:00 Acetaminophen/ Hydrocodone Bitart ([place] (5/325)) 1 tab Q6H PRN PO .PAIN 4-6 Last administered on 11/17/18 09:43; Admin Dose 1 TAB; Start 11/12/18 at 22:00 Hydralazine HCl (Apresoline) 10 mg Q4H PRN IV ELEVATED BLOOD PRESSURE Last administered on 11/16/18at 03:39; Admin Dose 10 MG; Start 11/13/18 at 00:00 Miscellaneous Information (Pending [facility] Order For Wound Care) This patient rodríguez... PRN PRN XX WOUND CARE; Start 11/13/18 at 06:30 Nystatin (Nystatin Powder) 1 applic BID TOP Last administered on 11/18/18 08:19; Admin Dose 1 APPLIC; Start 11/13/18 at 13:00 Insulin Glargine (Lantus) 12 units DAILY@2000 SC Last administered on 11/17/18 20:17; Admin Dose 12 UNITS; Start 11/13/18 at 20:00 Diagnostic Test (Pha) (Accu-Chek) 1 ea 02 XX Last administered on 11/18/18at 02:04; Admin Dose 1 EA; Start 11/14/18 at 02:00 Insulin Aspart (Novolog Insulin Pen) NOVOLOG *MILD* ALGORITHM WITH MEALS BEDTIME SC Last administered on 11/17/18 20:18; Admin Dose 1 UNIT; Start 11/14/18 at 08:00 Miscellaneous Information 1 ea NOTE XX ; Start 11/14/18 at 00:30 Glucose (Glutose) 15 gm Q15M PRN PO DECREASED GLUCOSE; Start 11/14/18 at 00:30 Glucose (Glutose) 22.5 gm Q15M PRN PO DECREASED GLUCOSE; Start 11/14/18 at 00:30 Dextrose (D50w Syringe) 25 ml Q15M PRN IV DECREASED GLUCOSE; Start 11/14/18 at 00:30 Dextrose (D50w Syringe) 50 ml Q15M PRN IV DECREASED GLUCOSE; Start 11/14/18 at 00:30 Glucagon (Glucagen) 1 mg Q15M PRN IM DECREASED GLUCOSE; Start 11/14/18 at 00:30 Glucose (Glutose) 15 gm Q15M PRN BUCCAL DECREASED GLUCOSE Last administered on 11/14/18at 08:14; Admin Dose 15 GM; Start 11/14/18 at 00:30 Bupropion HCl (Wellbutrin Sr) 150 mg BID PO Last administered on 11/18/18 08:14; Admin Dose 150 MG; Start 11/14/18 at 21:00 Polyethylene Glycol (Miralax) 17 gm BID PO Last administered on 11/18/18 08:15; Admin Dose 17 GM; Start 11/14/18 at 21:00 Sucralfate (Carafate) 1 gm AC MEALS AND BEDTIME PO Last administered on 11/18/18 11:47; Admin Dose 1 GM; Start 11/14/18 at 17:35 Zinc Sulfate (Zinc Sulfate) 220 mg DAILY PO Last administered on 11/18/18 08:14; Admin Dose 220 MG; Start 11/15/18 at 09:00 Multivitamins/ Minerals (Theragran-M) 1 tab DAILY PO Last administered on 11/18/18 08:14; Admin Dose 1 TAB; Start 11/15/18 at 09:00 Sodium Biphosphate/ Sodium Phosphate (Fleet Enema) 133 ml DAILY PRN IN CONSTIPA TION Last administered on 11/15/18 16:48; Admin Dose 133 ML; Start 11/15/18 at 16:00 Bisacodyl (Dulcolax Supp) 10 mg Q48H PRN IN CONSTIPATION Last administered on 11/17/18 22:38; Admin Dose 10 MG; Start 11/15/18 at 20:00 Enoxaparin Sodium (Lovenox) 40 mg DAILY SC Last administered on 11/18/18 0 8:14; Admin Dose 40 MG; Start 11/17/18 at 09:00 Pantoprazole (Protonix Tab) 40 mg DAILY@06 PO Last administered on 11/18/18 05:45; Admin Dose 40 MG; Start 11/17/18 at 06:00 Aspirin (Halfprin) 81 mg DAILY PO Last administered on 11/18/18 08:16; Admin Dose 81 MG; Start 11/16/18 at 17:00 Clopidogrel Bisulfate (plaVIX) 75 mg DAILY PO Last administered on 11/18/18 08:14; Admin Dose 75 MG; Start 11/16/18 at 17:00 Lisinopril (Zestril) 40 mg DAILY PO Last administered on 11/18/18 10:02; Admin Dose 40 MG; Start 11/18/18 at 09:00 Vancomycin HCl 250 ml @ 125 mls/hr Q24H IVPB Last administered on 11/18/18at 05:43; Admin Dose 125 MLS/HR; Start 11/18/18 at 05:30 Morphine Sulfate (morphine) 6 mg Q4H PRN PO SEVERE PAIN LEVEL 7-10; Start 11/17/18 at 22:30 Aztreonam 50 ml @ 100 mls/hr Q8 IVPB Last administered on 11/18/18at 10:02; Admin Dose 100 MLS/HR; Start 11/18/18 at 10:00 SONAM TAY MD Nov 18, 2018 14:52
[2018-11-18] MEDS: NA PHOSPHATE/BIPHOS 133 ML ENEMA PR PRN (15:43)
[2018-11-18 20:00] VITALS: BP 159/77; PULSE 86; RESP 18
[2018-11-18] MEDS: ATORVASTATIN 40 MG TAB PO SCH (20:56)
[2018-11-18] MEDS: MONTELUKAST 10 MG TAB PO SCH (20:56)
[2018-11-18] MEDS: INSULIN GLARGINE [LANTus] (100 UNITS/ML) SYG SC SCH (21:00)
[2018-11-19 02:00] VITALS: BP 163/78; PULSE 83; RESP 18
[2018-11-19] MEDS: ACCU-CHEK XX SCH (02:00)
[2018-11-19] MEDS: AZTREONAM 1 GM/NS (PMX) 50 ML IVPB SCH ×4 (02:10→22:25)
[2018-11-19] MEDS: PANTOPRAZOLE (EC) 40 MG TAB PO SCH (05:21)
[2018-11-19] MEDS: VANCOMYCIN 1 GM 250 ML IVPB SCH (05:21)
[2018-11-19] MEDS: SOD CHLORIDE 0.9% 1,000 ML IV SCH (05:25)
[2018-11-19] MEDS: SUCRALFATE 1 GM TAB PO SCH ×4 (07:49→21:04)
[2018-11-19] MEDS: INSULIN ASPART [NOVOLOG] 3 ML PEN SC SCH ×4 (07:57→21:03)
[2018-11-19 08:09] VITALS: BP 174/82; PULSE 83; RESP 20
[2018-11-19] MEDS: POLYETHYLENE GLYCOL 17 GM PACKET PO SCH ×2 (08:33→21:04)
[2018-11-19] MEDS: ASCORBIC ACID 500 MG TAB PO SCH (08:34)
[2018-11-19] MEDS: ENOXAPARIN 40 MG/0.4 ML SYG SC SCH (08:34)
[2018-11-19] MEDS: ZINC SULFATE 220 MG CAP PO SCH (08:34)
[2018-11-19] MEDS: MULTIVITAMINS/MINERALS TAB PO SCH (08:34)
[2018-11-19] MEDS: CLOPIDOGREL 75 MG TAB PO SCH (08:34)
[2018-11-19] MEDS: BUPROPION (SR) 150 MG TAB PO SCH ×2 (08:34→21:04)
[2018-11-19] MEDS: ASPIRIN (EC) 81 MG TAB PO SCH (08:34)
[2018-11-19] MEDS: AMLODIPINE 10 MG TAB PO SCH (08:35)
[2018-11-19] MEDS: LISINOPRIL 20 MG TAB PO SCH (08:35)
[2018-11-19] MEDS: NYSTATIN 30 GM POWDER BTL TOP SCH ×2 (08:36→21:06)
[2018-11-19 14:17] VITALS: BP 140/68; PULSE 72; RESP 18
--- NOTE | 2018-11-19 14:18 | PN ---
Date/Time of Note Date/Time of Note DATE: 11/19/18 TIME: 14:17 Assessment/Plan VTE Prophylaxis Risk score (from Ns)>0 risk: 5 SCD applied (from Nsg): Yes Pharmacological prophylaxis: LMWH Lines/Catheters IV Catheter Type (from Nrsg): PICC Line Central line still needed: Yes Assessment/Plan Assessment/Plan 1. Left foot wound infection with chronic osteomyelitis, status post surgical debridement, wound care, continue on vancomycin and aztreonam, follow up with podiatry 2. DM, stable 3. HTN, increase hydralazine 4. Dyslipidemia, on lipitor 5. PVD, stable, on aspirin/plavix and lipitor 6. DVT prophylaxis: lovenox 7. I talked with counseling case manager for SNF Result Diagram: 11/18/18 0542 11/19/18 0534 Results 24hrs Laboratory Tests Test 11/18/18 16:50 11/18/18 20:53 11/19/18 02:10 11/19/18 05:34 Bedside Glucose 152 201 214 Sodium Level 142 Potassium Level 3.8 Chloride Level 110 Carbon Dioxide Level 26 Anion Gap 6 Blood Urea Nitrogen 23 H Creatinine 1.00 Est Glomerular 58 L Filtrat Rate mL/min Glucose Level 162 Calcium Level 8.4 Test 11/19/18 07:50 11/19/18 12:23 Bedside Glucose 153 142 Subjective 24 Hr Interval Summary Free Text/Dictation no fever Exam/Review of Systems Exam Vitals Vital Signs Date Temp Pulse Resp B/P (MAP) Pulse Ox O2 O2 Flow FiO2 Time Delivery Rate 11/19/18 98.2 83 20 174/82 92 Room Air 08:09 (112) Intake and Output 11/18/18 11/18/18 11/19/18 1515:00 23:00 07:00 IntakeIntake Total 890 ml 290 ml 240 ml OutputOutput Total 1200 ml BalanceBalance 890 ml 290 ml -960 ml Constitutional: alert, oriented, well developed Head: normocephalic, atraumatic Eyes: nl conjunctiva, EOMI, nl lids, PERRL ENMT: nl external ears & nose, nl lips & teeth, nl nasal mucosa & septum Neck: supple, non-tender Respiratory: clear to auscultation, normal air movement; No congested cough, No crackles/rales, No diminished breath sounds, No intercostal retraction, No labored breathing, No respirations, No tactile fremitus, No wheezing, No other Cardiovascular: regular rate and rhythm, nl pulses; No bruits, No diastolic murmur, No edema, No gallop, No irregular rhythm, No jugular venous distention (JVD), No murmurs/extra sounds, No rub, No systolic murmur, No S3, No S4, No other Gastrointestinal: soft, nl liver, spleen, non-tender Extremities: other (left foot wound) Neurological: CUSTODIAL ENGINEER II-XII intact, nl mental status, nl speech, nl strength Results Results 24hrs Laboratory Tests Test 11/18/18 16:50 11/18/18 20:53 11/19/18 02:10 11/19/18 05:34 Bedside Glucose 152 201 214 Sodium Level 142 Potassium Level 3.8 Chloride Level 110 Carbon Dioxide Level 26 Anion Gap 6 Blood Urea Nitrogen 23 H Creatinine 1.00 Est Glomerular 58 L Filtrat Rate mL/min Glucose Level 162 Calcium Level 8.4 Test 11/19/18 07:50 11/19/18 12:23 Bedside Glucose 153 142 Medications Medication Current Medications Vancomycin HCl (Vanco Iv Per Pharmacy) VANCOMYCIN PER PHARMACY PER PROTOCOL XX ; Start 11/12/18 at 22:00 Amlodipine Besylate (Norvasc) 10 mg DAILY PO Last administered on 11/19/18 08:35; Admin Dose 10 MG; Start 11/13/18 at 09:00 Ascorbic Acid (Vitamin C) 500 mg DAILY PO Last administered on 11/19/18 08:34; Admin Dose 500 MG; Start 11/13/18 at 09:00 Atorvastatin Calcium (Lipitor) 40 mg HS PO Last administered on 11/18/18 20:56; Admin Dose 40 MG; Start 11/13/18 at 21:00 Carvedilol (Coreg) 12.5 mg BID PO Last administered on 11/19/18 08:35; Admin Dose 12.5 MG; Start 11/12/18 at 22:00 Montelukast Sodium (Singulair) 10 mg HS PO Last administered on 11/18/18 20: 56; Admin Dose 10 MG; Start 11/13/18 at 21:00 Sodium Chloride 1,000 ml @ 50 mls/hr Q20H IV Last administered on 2/21/19at 05:25; Admin Dose 50 MLS/HR; Start 11/12/18 at 22:00 IV Flush (NS 3 ml) 3 ml PER PROTOCOL IV ; Start 11/12/18 at 22:00 Ondansetron HCl (Zofran Inj) 4 mg Q6H PRN IV NAUSEA/VOMITING; Start 11/12/18 at 22:00 Acetaminophen (Tylenol Tab) 650 mg Q6H PRN PO .PAIN 1-3 OR TEMP; Start 11/12/18 at 22:00 Acetaminophen/ Hydrocodone Bitart ([place] (5/325)) 1 tab Q6H PRN PO .PAIN 4-[address] administered on 11/17/18at 09:43; Admin Dose 1 TAB; Start 11/12/18 at 22:00 Hydralazine HCl (Apresoline) 10 mg Q4H PRN IV ELEVATED BLOOD PRESSURE Last administered on 11/16/18 03:39; Admin Dose 10 MG; Start 11/13/18 at 00:00 Miscellaneous Information (Pending [facility] Order For Wound Care) This patient rodríguez... PRN PRN XX WOUND CARE; Start 11/13/18 at 06:30 Nystatin (Nystatin Powder) 1 applic BID TOP Last administered on 11/19/18at 08:36; Admin Dose 1 APPLIC; Start 11/13/18 at 13:00 Insulin Glargine (Lantus) 12 units DAILY@2000 SC Last administered on 11/18/18at 21:00; Admin Dose 12 UNITS; Start 11/13/18 at 20:00 Diagnostic Test (Pha) (Accu-Chek) 1 ea 02 XX Last administered on 11/18/18at 02 :04; Admin Dose 1 EA; Start 11/14/18 at 02:00 Insulin Aspart (Novolog Insulin Pen) NOVOLOG *MILD* ALGORITHM WITH MEALS BEDTIME SC Last administered on 11/19/18at 12:44; Admin Dose 1 UNIT; Start 11/14 at 08:00 Miscellaneous Information 1 ea NOTE XX ; Start 11/14/18 at 00:30 Glucose (Glutose) 15 gm Q15M PRN PO DECREASED GLUCOSE; Start 11/14/18 at 00:30 Glucose (Glutose) 22.5 gm Q15M PRN PO DECREASED GLUCOSE; Start 11/14/18 at 00:30 Dextrose (D50w Syringe) 25 ml Q15M PRN IV DECREASED GLUCOSE; Start 11/14/18 at 00:30 Dextrose (D50w Syringe) 50 ml Q15M PRN IV DECREASED GLUCOSE; Start 11/14/18 at 00:30 Glucagon (Glucagen) 1 mg Q15M PRN IM DECREASED GLUCOSE; Start 11/14/18 at 00:30 Glucose (Glutose) 15 gm Q15M PRN BUCCAL DECREASED GLUCOSE Last administered on 11/14/18at 08:14; Admin Dose 15 GM; Start 11/14/18 at 00:30 Bupropion HCl (Wellbutrin Sr) 150 mg BID PO Last administered on 11/19/18 08:34; Admin Dose 150 MG; Start 11/14/18 at 21:00 Polyethylene Glycol (Miralax) 17 gm BID PO Last administered on 11/19/18 08:33; Admin Dose 17 GM; Start 11/14/18 at 21:00 Sucralfate (Carafate) 1 gm AC MEALS AND BEDTIME PO Last administered on 11/19/18 13:31; Admin Dose 1 GM; Start 11/14/18 at 17:35 Zinc Sulfate (Zinc Sulfate) 220 mg DAILY PO Last administered on 11/19/18 08:34; Admin Dose 220 MG; Start 11/15/18 at 09:00 Multivitamins/ Minerals (Theragran-M) 1 tab DAILY PO Last administered on 11/19/18 08:34; Admin Dose 1 TAB; Start 11/15/18 at 09:00 Sodium Biphosphate/ Sodium Phosphate (Fleet Enema) 133 ml DAILY PRN NC CONSTIPATION Last administered on 11/18/18 15:43; Admin Dose 133 ML; Start 11/15/18 at 16:00 Bisacodyl (Dulcolax Supp) 10 mg Q48H PRN NC CONSTIPATION Last administered on 11/17/18 22:38; Admin Dose 10 MG; Start 11/15/18 at 20:00 Enoxaparin Sodium (Lovenox) 40 mg DAILY SC Last administered on 11/19/18 08:34; Admin Dose 40 MG; Start 11/17/18 at 09:00 Pantoprazole (Protonix Tab) 40 mg DAILY@06 PO Last administered on 11/19/18 05:21; Admin Dose 40 MG; Start 11/17/18 at 06:00 Aspirin (Halfprin) 81 mg DAILY PO Last administered on 11/19/18 08:34; Admin Dose 81 MG; Start 11/16/18 at 17:00 Clopidogrel Bisulfate (plaVIX) 75 mg DAILY PO Last administered on 11/19/18 08:34; Admin Dose 75 MG; Start 11/16/18 at 17:00 Lisinopril (Zestril) 40 mg DAILY PO Last administered on 11/19/18at 08:35; Admin Dose 40 MG; Start 11/18/18 at 09:00 Vancomycin HCl 250 ml @ 125 mls/hr Q24H IVPB Last administered on 11/19/18 05:21; Admin Dose 125 MLS/HR; Start 11/18/18 at 05:30 Morphine Sulfate (morphine) 6 mg Q4H PRN PO SEVERE PAIN LEVEL 7-10; Start 11/17 at 22:30 Aztreonam 50 ml @ 100 mls/hr Q8 IVPB Last administered on 11/19/18at 13:32; Admin Dose 100 MLS/HR; Start 11/18/18 at 10:00 Hydralazine HCl (Apresoline) 100 mg TID PO Last administered on 11/19/18 13:31; Admin Dose 100 MG; Start 11/18/18 at 21:00 Bisacodyl (Dulcolax) 10 mg DAILY PRN PO CONSTIPATION; Start 11/19/18 at 14:30 SONAM TAY MD Nov 19, 2018 14:18
--- NOTE | 2018-11-19 14:37 | CONS ---
Assessment/Plan Assessment/Plan Hospital Course (Demo Recall) ID PROGRESS NOTE CURRENT ABX: DAY # Vanco IV + AZACTAM #4 + VFEND #2 Cefepime ->DC' 11/1611/18/18 0542 11/19/18 0534 24H INTERVAL SUMMARY * No new issues -- no fevers, VSS, she appears discouraged w/flat affect due to prolonged hospitalization -- chronic diabetic foot wound * Gastroparesis -- chronic epigastric pain w/dyspepsia w/hx of g astroparesis/gerd * Awake, alert, doing well -- worked with PTx today on ROM and strength exercises * no fevers, VSS, NAD, without dyspnea on room air * s/p left foot I&D 11/13/18-> Wound and tissue cx (+)PSAR -- prior cx now (+)YEAST/PSAR/CoNS MICRO * 11/13/18 LEFT FOOT TISSUE BX (+) TISSUE (BIOPSY) CULTURE Final Organism 1 PSEUDOMONAS AERUGINOSA QUANTITY 3+ P.AERUG P.AERUG M.I.C. RX M.I.C. RX --------- --- --------- --- AMIKACIN <=2 S AZTREONAM S CEFEPIME 16 I CEFTAZIDIME >=64 R CIPROFLOXACIN >=4 R GENTAMICIN <=1 S LEVOFLOXACIN >=8 R MEROPENEM 3 S TOBRAMYCIN <=1 S PIPERACILLIN/TAZOBACTAM R * 11/13/18 LEFT FOOT CX (+) (+) FUNGAL CULTURE Preliminary Organism 1 YEAST QUANTITY RARE * OUND CULTURE Final Organism 1 PSEUDOMONAS AERUGINOSA QUANTITY SCANT GROWTH Organism 2 COAGULASE NEGATIVE STAPH QUANTITY RARE PHYSICAL EXAMINATION: GENERAL: Afebrile, VSS, A/A/O HEENT: AT, NC, anicteric NECK: Supple, CHEST: Equal chest rise bilaterally, without dyspnea on observation HEART: Pulse RRR ABDOMEN: Soft / NT EXTREMITIES: Warm, dry - Left foot DSG C/D/I (+)LUEXT edema SKIN: No rash, no diaphoresis ID ASSESSMENT 53 yo F admit with: 1. SIRS s/ persistent leukocytosis -> S/p sepsis with bacteremia on admission likely secondary to #2 & #3 => RESOLVED 2. POD # 11/13/18 => TISSUE CX (+) PSAR * Preoperative Diagnosis Left foot ulceration OM left foot Dm2 with PN Charcot left foot DFU left foot Postoperative Diagnosis: same * Operation/Procedure Performed Left foot debridement of heel skin, subcut, ligament 4x 5 cm Left foot debridement of skin, subcut, bone dorsal foot 10 x 8 cm Left foot application of integra Left foot local rotation flap closure 1st MPJ Left foot local rotation flap closure 5th MPJ Biopsy of bone 5th metatarsal 4. Diabetes type 2 w/complication of DM peripheral neuropathy 5. Peripheral arterial disease 6. Acute kidney insufficiency on CKD 7. History of transaminitis secondary to Daptomycin 8. Anemia of chronic disease and iron deficiency 9. Essential HTN w/hx of HTN urgency 10. Hx of Left upper extremity thrombus w/edema 11. Hypercoagulable state 12. Hx of COPD-Asthma = asymptomatic 13. OPIOID INDUCED CONSTIPATION * s/p vasovagal episode in setting of opioid constipation while attempting to pass stool on commode 14. CAD and Hx of HF -- stable 15. S/P Pseudomonas and E. coli UTI = S/P TREATED (-)MRSA Nares ABX ALLERGIES: NKDA INVASIVES: PICC ->Right upper extremity PICC line, present on admission, FC CURRENT ABX: DAY # Vanco IV + AZACTAM #4 + VFEND #2 Cefepime ->DC' 11/16 s/p Ampicillin + Levaquin ID RECOMMENDATIONS/PLAN: 1. Continue Vanco IV + Azactam as PSAR is developing resistance to Cefepime = Anticipate 6 weeks for report of osteomyelitis on imaging * Treat YEAST on superficial wound cx x 14 days w/VFEND * May DC when cleared by primary on current ABX to complete 6 weeks 2. Follow APC recommendations . Consultation Date/Type/Reason Admit Date/Time Nov 12, 2018 at 20:14 Initial Consult Date Date/Time of Note DATE: 11/19/18 TIME: 14:34 Exam/Review of Systems Exam Vitals Vital Signs Date Temp Pulse Resp B/P (MAP) Pulse Ox O2 O2 Flow FiO2 Time Delivery Rate 11/19/18 98.0 72 18 140/68 95 Room Air 14:17 (92) Intake and Output 11/18/18 11/18/18 11/19/18 1515:00 23:00 07:00 IntakeIntake Total 890 ml 290 ml 240 ml OutputOutput Total 1200 ml BalanceBalance 890 ml 290 ml -960 ml Results Result Diagram: 11/18/18 0542 11/19/18 0534 Results 24hrs Laboratory Tests Test 11/18/18 16:50 11/18/18 20:53 11/19/18 02:10 11/19/18 05:34 Bedside Glucose 152 201 214 Sodium Level 142 Potassium Level 3.8 Chloride Level 110 Carbon Dioxide Level 26 Anion Gap 6 Blood Urea Nitrogen 23 H Creatinine 1.00 Est Glomerular 58 L Filtrat Rate mL/min Glucose Level 162 Calcium Level 8.4 Test 11/19/18 07:50 11/19/18 12:23 Bedside Glucose 153 142 Medications Medication Current Medications Vancomycin HCl (Vanco Iv Per Pharmacy) VANCOMYCIN PER PHARMACY PER PROTOCOL XX ; Start 11/12/18 at 22:00 Amlodipine Besylate (Norvasc) 10 mg DAILY PO Last administered on 11/19/18at 08:35; Admin Dose 10 MG; Start 11/13/18 at 09:00 Ascorbic Acid (Vitamin C) 500 mg DAILY PO Last administered on 11/19/18 08:34; Admin Dose 500 MG; Start 11/13/18 at 09:00 Atorvastatin Calcium (Lipitor) 40 mg HS PO Last administered on 11/18/18at 20:56; Admin Dose 40 MG; Start 11/13/18 at 21:00 Carvedilol (Coreg) 12.5 mg BID PO Last administered on 11/19/18 08:35; Admin Dose 12.5 MG; Start 11/12/18 at 22:00 Montelukast Sodium (Singulair) 10 mg HS PO Last administered on 11/18/18at 20:56; Admin Dose 10 MG; Start 11/13/18 at 21:00 Sodium Chloride 1,000 ml @ 50 mls/hr Q20H IV Last administered on 11/19/18at 05:25; Admin Dose 50 MLS/HR; Start 11/12/18 at 22:00 IV Flush (NS 3 ml) 3 ml PER PROTOCOL IV ; Start 11/12/18 at 22:00 Ondansetron HCl (Zofran Inj) 4 mg Q6H PRN IV NAUSEA/VOMITING; Start 11/12/18 at 22:00 Acetaminophen (Tylenol Tab) 650 mg Q6H PRN PO .PAIN 1-3 OR TEMP; Start 11/12/18 at 22:00 Acetaminophen/ Hydrocodone Bitart ([place] (5/325)) 1 tab Q6H PRN PO .PAIN 4-6 Last administered on 11/17/18 09:43; Admin Dose 1 TAB; Start 11/12/18 at 22:00 Hydralazine HCl (Apresoline) 10 mg Q4H PRN IV ELEVATED BLOOD PRESSURE Last administered on 11/16/18 03:39; Admin Dose 10 MG; Start 11/13/18 at 00:00 [facility]isc[facility] This patient rodríguez... PRN PRN XX WOUND CARE; Start 11/13/18 at 06:30 Nystatin (Nystatin Powder) 1 applic BID TOP Last administered on 11/19/18at 08:36; Admin Dose 1 APPLIC; Start 11/13/18 at 13:00 Insulin Glargine (Lantus) 12 units DAILY@2000 SC Last administered on 11/18/18at 21:00; Admin Dose 12 UNITS; Start 11/13/18 at 20:00 Diagnostic Test (Pha) (Accu-Chek) 1 ea 02 XX Last administered on 11/18/18at 02:04; Admin Dose 1 EA; Start 11/14/18 at 02:00 Insulin Aspart (Novolog Insulin Pen) NOVOLOG *MILD* ALGORITHM WITH MEALS BEDTIME SC Last administered on 11/19/18at 12:44; Admin Dose 1 UNIT; Start 11/14/18 at 08:00 Miscellaneous Information 1 ea NOTE XX ; Start 11/14/18 at 00:30 Glucose (Glutose) 15 gm Q15M PRN PO DECREASED GLUCOSE; Start 11/14/18 at 00:30 Glucose (Glutose) 22.5 gm Q15M PRN PO DECREASED GLUCOSE; Start 11/14/18 at 00:30 Dextrose (D50w Syringe) 25 ml Q15M PRN IV DECREASED GLUCOSE; Start 11/14/18 at 00:30 Dextrose (D50w Syringe) 50 ml Q15M PRN IV DECREASED GLUCOSE; Start 11/14/18 at 00:30 Glucagon (Glucagen) 1 mg Q15M PRN IM DECREASED GLUCOSE; Start 11/14/18 at 00:30 Glucose (Glutose) 15 gm Q15M PRN BUCCAL DECREASED GLUCOSE Last administered on 11/14/18 08:14; Admin Dose 15 GM; Start 11/14/18 at 00:30 Bupropion HCl (Wellbutrin Sr) 150 mg BID PO Last administered on 11/19/18 08:34; Admin Dose 150 MG; Start 11/14/18 at 21:00 Polyethylene Glycol (Miralax) 17 gm BID PO Last administered on 11/19/18 08:33; Admin Dose 17 GM; Start 11/14/18 at 21:00 Sucralfate (Carafate) 1 gm AC MEALS AND BEDTIME PO Last administered on 11/19/18 13:31; Admin Dose 1 GM; Start 11/14/18 at 17:35 Zinc Sulfate (Zinc Sulfate) 220 mg DAILY PO Last administered on 11/19/18 08:34; Admin Dose 220 MG; Start 11/15/18 at 09:00 Multivitamins/ Minerals (Theragran-M) 1 tab DAILY PO Last administered on 11/19/18 08:34; Admin Dose 1 TAB; Start 11/15/18 at 09:00 Sodium Biphosphate/ Sodium Phosphate (Fleet Enema) 133 ml DAILY PRN [place] CONSTIPATION Last administered on 11/18/18 15:43; Admin Dose 133 ML; Start 11/15/18 at 16:00 Bisacodyl (Dulcolax Supp) 10 mg Q48H PRN [place] CONSTIPATION Last administered on 11/17/18 22:38; Admin Dose 10 MG; Start 11/15/18 at 20:00 Enoxaparin Sodium (Lovenox) 40 mg DAILY SC Last administered on 11/19/18 08:34; Admin Dose 40 MG; Start 11/17/18 at 09:00 Pantoprazole (Protonix Tab) 40 mg DAILY@06 PO Last administered on 11/19/18 05:21; Admin Dose 40 MG; Start 11/17/18 at 06:00 Aspirin (Halfprin) 81 mg DAILY PO Last administered on 2/21/19at 08:34; Admin Dose 81 MG; Start 11/16/18 at 17:00 Clopidogrel Bisulfate (plaVIX) 75 mg DAILY PO Last administered on 11/19/18 08:34; Admin Dose 75 MG; Start 11/16/18 at 17:00 Lisinopril (Zestril) 40 mg DAILY PO Last administered on 11/19/18at 08:35; Admin Dose 40 MG; Start 11/18/18 at 09:00 Vancomycin HCl 250 ml @ 125 mls/hr Q24H IVPB Last administered on 11/19/18at 05:21; Admin Dose 125 MLS/HR; Start 11/18/18 at 05:30 Morphine Sulfate (morphine) 6 mg Q4H PRN PO SEVERE PAIN LEVEL 7-10; Start 11/17/18 at 22:30 Aztreonam 50 ml @ 100 mls/hr Q8 IVPB Last administered on 11/19/18at 13:32; Admin Dose 100 MLS/HR; Start 11/18/18 at 10:00 Hydralazine HCl (Apresoline) 100 mg TID PO Last administered on 11/19/18at 13:31; Admin Dose 100 MG; Start 11/18/18 at 21:00 Bisacodyl (Dulcolax) 10 mg DAILY PRN PO CONSTIPATION; Start 11/19/18 at 14:30 BRENT HERRERA NP Nov 19, 2018 14:37
[2018-11-19] MEDS: BISACODYL (EC) 5 MG TAB PO PRN ×2 (15:22→16:19)
[2018-11-19] MEDS: BISACODYL 10 MG SUPP PR PRN (15:23)
[2018-11-19] MEDS: morphine LIQ (10 MG/5 ML) CUP PO PRN (18:44)
[2018-11-19 20:00] VITALS: BP 158/71; PULSE 89; RESP 17
[2018-11-19] MEDS: INSULIN GLARGINE [LANTus] (100 UNITS/ML) SYG SC SCH (21:00)
[2018-11-19] MEDS: ATORVASTATIN 40 MG TAB PO SCH (21:04)
[2018-11-19] MEDS: MONTELUKAST 10 MG TAB PO SCH (21:04)
[2018-11-20 02:00] VITALS: BP 171/79; PULSE 86; RESP 19
[2018-11-20] MEDS: ACCU-CHEK XX SCH (02:00)
[2018-11-20] MEDS: hydrALAzine 20 MG INJ IV PRN (02:11)
[2018-11-20 02:45] VITALS: BP 141/67; PULSE 71
[2018-11-20] MEDS: VANCOMYCIN 1 GM 250 ML IVPB SCH (05:23)
[2018-11-20] MEDS: PANTOPRAZOLE (EC) 40 MG TAB PO SCH (06:05)
[2018-11-20] MEDS: morphine LIQ (10 MG/5 ML) CUP PO PRN (06:07)
[2018-11-20] MEDS: INSULIN ASPART [NOVOLOG] 3 ML PEN SC SCH ×4 (08:00→21:00)
[2018-11-20 08:11] VITALS: BP 136/64; PULSE 76; RESP 18
[2018-11-20] MEDS: CLOPIDOGREL 75 MG TAB PO SCH (09:30)
[2018-11-20] MEDS: ENOXAPARIN 40 MG/0.4 ML SYG SC SCH (09:30)
[2018-11-20] MEDS: ASPIRIN (EC) 81 MG TAB PO SCH (09:31)
[2018-11-20] MEDS: SUCRALFATE 1 GM TAB PO SCH ×4 (09:31→20:25)
[2018-11-20] MEDS: MULTIVITAMINS/MINERALS TAB PO SCH (09:31)
[2018-11-20] MEDS: ZINC SULFATE 220 MG CAP PO SCH (09:31)
[2018-11-20] MEDS: BUPROPION (SR) 150 MG TAB PO SCH ×2 (09:31→20:31)
[2018-11-20] MEDS: AMLODIPINE 10 MG TAB PO SCH (09:32)
[2018-11-20] MEDS: ASCORBIC ACID 500 MG TAB PO SCH (09:32)
[2018-11-20] MEDS: LISINOPRIL 20 MG TAB PO SCH (09:32)
[2018-11-20] MEDS: AZTREONAM 1 GM/NS (PMX) 50 ML IVPB SCH ×3 (09:37→22:25)
[2018-11-20] MEDS: POLYETHYLENE GLYCOL 17 GM PACKET PO SCH ×2 (09:38→20:26)
[2018-11-20] MEDS: SOD CHLORIDE 0.9% 1,000 ML IV SCH (09:45)
[2018-11-20] MEDS: NYSTATIN 30 GM POWDER BTL TOP SCH ×2 (11:38→20:27)
[2018-11-20] MEDS: ONDANSETRON 4 MG INJ IV PRN (11:43)
--- NOTE | 2018-11-20 13:09 | CONS ---
Assessment/Plan Assessment/Plan Hospital Course (Demo Recall) ID PROGRESS NOTE CURRENT ABX: DAY # Vanco IV + AZACTAM #4 + VFEND #2 Cefepime ->DC' 11/16 24H INTERVAL SUMMARY * VSS, NO FEVERS, NAD, WITHOUT DYSPNEA -- AWAKE, ALERT, CHRONIC ILLNESS- chronic diabetic foot wound * CHRONIC Gastroparesis -- chronic epigastric pain w/dyspepsia w/hx of gastroparesis/gerd * s/p left foot I&D 11/13/18-> Wound and tissue cx (+)PSAR -- prior cx now (+)YEAST/PSAR/CoNS * 11/13/18 PATHO REPORT MICROSCOPIC DIAGNOSIS: A-Bone, left foot: -- Chronic osteomyelitis, focal, involving cancellous bone, with reactive new bone formation, marrow fibrosis and fragments of granulation tissue ulcer base. -- Isolated fragment of necrotic hyaline cartilage. -- There is no evidence of malignancy. B-Soft tissue, heel of left foot: -- Gangrenous necrosis of dermis and subcutaneous tissue, extensive, with focal intense acute inflammation. -- There is no evidence of malignancy. MICRO * 11/13/18 LEFT FOOT TISSUE BX (+) TISSUE (BIOPSY) CULTURE Final Organism 1 PSEUDOMONAS AERUGINOSA QUANTITY 3+ P.AERUG P.AERUG M.I.C. RX M.I.C. RX --------- --- --------- --- AMIKACIN <=2 S AZTREONAM S CEFEPIME 16 I CEFTAZIDIME >=64 R CIPROFLOXACIN >=4 R GENTAMICIN <=1 S LEVOFLOXACIN >=8 R MEROPENEM 3 S TOBRAMYCIN <=1 S PIPERACILLIN/TAZOBACTAM R * 11/13/18 LEFT FOOT CX (+) (+) FUNGAL CULTURE Preliminary Organism 1 YEAST QUANTITY RARE * OUND CULTURE Final Organism 1 PSEUDOMONAS AERUGINOSA QUANTITY SCANT GROWTH Organism 2 COAGULASE NEGATIVE STAPH QUANTITY RARE PHYSICAL EXAMINATION: GENERAL: Afebrile, VSS, A/A/O HEENT: AT, NC, anicteric NECK: Supple, CHEST: Equal chest rise bilaterally, without dyspnea on observation HEART: Pulse RRR ABDOMEN: Soft / NT EXTREMITIES: Warm, dry - Left foot DSG C/D/I (+)LUEXT edema SKIN: No rash, no diaphoresis ID ASSESSMENT 53 yo F admit with: 1. SIRS s/ persistent leukocytosis -> S/p sepsis with bacteremia on admission likely secondary to #2 & #3 => RESOLVED 2. POD # 2// => TISSUE CX (+) PSAR * Preoperative Diagnosis Left foot ulceration OM left foot Dm2 with PN Charcot left foot DFU left foot Postoperative Diagnosis: same * Operation/Procedure Performed Left foot debridement of heel skin, subcut, ligament 4x 5 cm Left foot debridement of skin, subcut, bone dorsal foot 10 x 8 cm Left foot application of integra Left foot local rotation flap closure 1st MPJ Left foot local rotation flap closure 5th MPJ Biopsy of bone 5th metatarsal 4. Diabetes type 2 w/complication of DM peripheral neuropathy 5. Peripheral arterial disease 6. Acute kidney insufficiency on CKD 7. History of transaminitis secondary to Daptomycin 8. Anemia of chronic disease and iron deficiency 9. Essential HTN w/hx of HTN urgency 10. Hx of Left upper extremity thrombus w/edema 11. Hypercoagulable state 12. Hx of COPD-Asthma = asymptomatic 13. OPIOID INDUCED CONSTIPATION * s/p vasovagal episode in setting of opioid constipation while attempting to pass stool on commode 14. CAD and Hx of HF -- stable 15. S/P Pseudomonas and E. coli UTI = S/P TREATED (-)MRSA Nares ABX ALLERGIES: NKDA INVASIVES: PICC ->Right upper extremity PICC line, present on admission, FC CURRENT ABX: DAY # Vanco IV + AZACTAM #5 + VFEND #3 Cefepime ->DC' 11/16 s/p Ampicillin + Levaquin ID RECOMMENDATIONS/PLAN: 1. Continue Vanco IV + Azactam as PSAR is developing resistance to Cefepime = Anticipate 6 weeks for report of osteomyelitis on imaging * Treat YEAST on superficial wound cx x 14 days w/VFEND * May DC when cleared by primary on current ABX to complete 6 weeks 2. Follow APC recommendations . Consultation Date/Type/Reason Admit Date/Time Nov 12, 2018 at 20:14 Initial Consult Date Date/Time of Note DATE: 11/20/18 TIME: 13:05 Exam/Review of Systems Exam Vitals Vital Signs Date Temp Pulse Resp B/P (MAP) Pulse Ox O2 O2 Flow FiO2 Time Delivery Rate 11/20/18 98.4 76 18 136/64 98 Room Air 08:11 (88) Intake and Output 11/19/18 11/19/18 11/20/18 1515:00 23:00 07:00 IntakeIntake Total 1070 ml 700 ml 350 ml OutputOutput Total 600 ml 500 ml BalanceBalance 470 ml 200 ml 350 ml Results Result Diagram: 11/18/18 0542 11/19/18 0534 Results 24hrs Laboratory Tests Test 11/19/18 17:37 11/19/18 21:01 11/20/18 02:10 11/20/18 08:14 Bedside Glucose 212 232 H 122 127 Test 11/20/18 11:46 Bedside Glucose 148 Medications Medication Current Medications Vancomycin HCl (Vanco Iv Per Pharmacy) VANCOMYCIN PER PHARMACY PER PROTOCOL XX ; Start 11/12/18 at 22:00 Amlodipine Besylate (Norvasc) 10 mg DAILY PO Last administered on 11/20/18 09:32; Admin Dose 10 MG; Start 11/13/18 at 09:00 Ascorbic Acid (Vitamin C) 500 mg DAILY PO Last administered on 11/20/18 09:32; Admin Dose 500 MG; Start 11/13/18 at 09:00 Atorvastatin Calcium (Lipitor) 40 mg HS PO Last administered on 11/19/18 21:04; Admin Dose 40 MG; Start 11/13/18 at 21:00 Carvedilol (Coreg) 12.5 mg BID PO Last administered on 11/20/18 09:32; Admin Dose 12.5 MG; Start 11/12/18 at 22:00 Montelukast Sodium (Singulair) 10 mg HS PO Last administered on 11/19/18 21:04; Admin Dose 10 MG; Start 11/13/18 at 21:00 Sodium Chloride 1,000 ml @ 50 mls/hr Q20H IV Last administered on 11/20/18 09:45; Admin Dose 50 MLS/HR; Start 11/12/18 at 22:00 IV Flush (NS 3 ml) 3 ml PER PROTOCOL IV ; Start 11/12/18 at 22:00 Ondansetron HCl (Zofran Inj) 4 mg Q6H PRN IV NAUSEA/VOMITING Last administered on 11/20/18 11:43; Admin Dose 4 MG; Start 11/12/18 at 22:00 Acetaminophen (Tylenol Tab) 650 mg Q6H PRN PO .PAIN 1-3 OR TEMP; Start 11/12/18 at 22:00 Acetaminophen/ Hydrocodone Bitart ([place] (5/325)) 1 tab Q6H PRN PO .PAIN 4-6 Last administered on 11/17/18 09:43; Admin Dose 1 TAB; Start 11/12/18 at 22:00 Hydralazine HCl (Apresoline) 10 mg Q4H PRN IV ELEVATED BLOOD PRESSURE Last administered on 11/20/18 02:11; Admin Dose 10 MG; Start 11/13/18 at 00:00 Miscellaneous Information [facility] This patient rodríguez... PRN PRN XX WOUND CARE; Start 11/13/18 at 06:30 Nystatin (Nystatin Powder) 1 applic BID TOP Last administered on 11/20/18at 1 1:38; Admin Dose 1 APPLIC; Start 11/13/18 at 13:00 Insulin Glargine (Lantus) 12 units DAILY@2000 SC Last administered on 11/19/18 21:00; Admin Dose 12 UNITS; Start 11/13/18 at 20:00 Diagnostic Test (Pha) (Accu-Chek) 1 ea 02 XX Last administered on 11/18/18at 02:04; Admin Dose 1 EA; Start 11/14/18 at 02:00 Insulin Aspart (Novolog Insulin Pen) NOVOLOG *MILD* ALGORITHM WITH MEALS BEDTIME SC Last administered on 11/20/18 11:48; Admin Dose 1 UNIT; Start 11/14/18 at 08:00 Miscellaneous Information 1 ea NOTE XX ; Start 11/14/18 at 00:30 Glucose (Glutose) 15 gm Q15M PRN PO DECREASED GLUCOSE; Start 11/14/18 at 00:30 Glucose (Glutose) 22.5 gm Q15M PRN PO DECREASED GLUCOSE; Start 11/14/18 at 00: 30 Dextrose (D50w Syringe) 25 ml Q15M PRN IV DECREASED GLUCOSE; Start 11/14/18 at 00:30 Dextrose (D50w Syringe) 50 ml Q15M PRN IV DECREASED GLUCOSE; Start 11/14/18 at 00:30 Glucagon (Glucagen) 1 mg Q15M PRN IM DECREASED GLUCOSE; Start 11/14/18 at 00:30 Glucose (Glutose) 15 gm Q15M PRN BUCCAL DECREASED GLUCOSE Last administered on 11/14/18 08:14; Admin Dose 15 GM; Start 11/14/18 at 00:30 Bupropion HCl (Wellbutrin Sr) 150 mg BID PO Last administered on 11/20/18 09:31; Admin Dose 150 MG; Start 11/14/18 at 21:00 Polyethylene Glycol (Miralax) 17 gm BID PO Last administered on 11/20/18 09:3 8; Admin Dose 17 GM; Start 11/14/18 at 21:00 Sucralfate (Carafate) 1 gm AC MEALS AND BEDTIME PO Last administered on 11/20/18 11:43; Admin Dose 1 GM; Start 11/14/18 at 17:35 Zinc Sulfate (Zinc Sulfate) 220 mg DAILY PO Last administered on 11/20/18 09:31; Admin Dose 220 MG; Start 11/15/18 at 09:00 Multivitamins/ Minerals (Theragran-M) 1 tab DAILY PO Last administered on 11/20/18 09:31; Admin Dose 1 TAB; Start 11/15/18 at 09:00 Sodium Biphosphate/ Sodium Phosphate (Fleet Enema) 133 ml DAILY PRN [place] CONSTIPATION Last administered on 11/18/18 15:43; Admin Dose 133 ML; Start 11/15/18 at 16:00 Bisacodyl (Dulcolax Supp) 10 mg Q48H PRN [place] CONSTIPATION Last administered on 11/19/18 15:23; Admin Dose 10 MG; Start 11/15/18 at 20:00 Enoxaparin Sodium (Lovenox) 40 mg DAILY SC Last administered on 11/20/18 09:30; Admin Dose 40 MG; Start 11/17/18 at 09:00 Pantoprazole (Protonix Tab) 40 mg DAILY@06 PO Last administered on 11/20/18 06:05; Admin Dose 40 MG; Start 11/17/18 at 06:00 Aspirin (Halfprin) 81 mg DAILY PO Last administered on 11/20/18 09:31; Admin Dose 81 MG; Start 11/16/18 at 17:00 Clopidogrel Bisulfate (plaVIX) 75 mg DAILY PO Last administered on 11/20/18 09:30; Admin Dose 75 MG; Start 11/16/18 at 17:00 Lisinopril (Zestril) 40 mg DAILY PO Last administered on 11/20/18 09:32; Admin Dose 40 MG; Start 11/18/18 at 09:00 Vancomycin HCl 250 ml @ 125 mls/hr Q24H IVPB Last administered on 11/20/18 05:23; Admin Dose 125 MLS/HR; Start 11/18/18 at 05:30 Morphine Sulfate (morphine) 6 mg Q4H PRN PO SEVERE PAIN LEVEL 7-10 Last administered on 11/20/18 06:07; Admin Dose 6 MG; Start 11/17/18 at 22:30 Aztreonam 50 ml @ 100 mls/hr Q8 IVPB Last administered on 11/20/18 09:37; Admin Dose 100 MLS/HR; Start 11/18/18 at 10:00 Hydralazine HCl (Apresoline) 100 mg TID PO Last administered on 11/20/18 09:31; Admin Dose 100 MG; Start 11/18/18 at 21:00 Bisacodyl (Dulcolax) 10 mg DAILY PRN PO CONSTIPATION Last administered on 11/19/18 16:19; Admin Dose 10 MG; Start 11/19/18 at 14:30 BRENT HERRERA NP Nov 20, 2018 13:09
--- NOTE | 2018-11-20 14:07 | PN ---
Date/Time of Note Date/Time of Note DATE: 11/20/18 TIME: 14:02 Assessment/Plan VTE Prophylaxis Risk score (from Nsg)>0 risk: 6 SCD applied (from Nsg): Yes Pharmacological prophylaxis: heparin Lines/Catheters IV Catheter Type (from Nrsg): PICC Line Central line still needed: Yes Assessment/Plan Hospital Course Assessment and plan: 53-year-old female with a past medical history of hype rtension, hyperlipidemia, CHF, diabetes, COPD, chronic osteomyelitis with left lower extremity diabetic ulcers requiring previous debridement, presenting from the wound care clinic for evaluation of the wounds. # Chronic osteomyelitis -left foot/lower extremity -again status post surgical debridemen -Continue IV antibiotic -Follow-up final postoperative recommendations from podiatry, including wound care # [id number] now, on admission patient states this appears to happen in the mornings. -For now continue Protonix -Zofran as needed -Reassess need of possible GI evaluation # Dyslipidemia -Resume home meds when able # Peripheral arterial disease -Continue home meds when able, including aspirin and Plavix in 24 hours if okay with podiatry team and no signs of bleeding noted # Hypertension -presently stable -Continue home meds when able # Diabetes mellitus -current A1c was 6.1. Sugars appear stable -Monitor sugars, continue sliding scale insulin and current Lantus dose Result Diagram: 11/18/18 0542 11/19/18 0534 Results 24hrs Laboratory Tests Test 11/19/18 17:37 11/19/18 21:01 11/20/18 02:10 11/20/18 08:14 Bedside Glucose 212 232 H 122 127 Test 11/20/18 11:46 Bedside Glucose 148 Subjective 24 Hr Interval Summary Free Text/Dictation Patient comfortable Awaiting SNF placement Continues on abx Exam/Review of Systems Exam Vitals Vital Signs Date Temp Pulse Resp B/P (MAP) Pulse Ox O2 O2 Flow FiO2 Time Delivery Rate 11/20/18 98.4 76 18 136/64 98 Room Air 08:11 (88) Intake and Output 11/19/18 11/19/18 11/20/18 1515:00 23:00 07:00 IntakeIntake Total 1070 ml 700 ml 350 ml OutputOutput Total 600 ml 500 ml BalanceBalance 470 ml 200 ml 350 ml Constitutional: alert, oriented, well developed Psych: no complaints, nl mood/affect Head: normocephalic, atraumatic Eyes: nl conjunctiva, EOMI, nl lids, nl sclera, PERRL ENMT: nl external ears & nose, nl lips & teeth, nl nasal mucosa & septum Neck: supple, non-tender Respiratory: clear to auscultation, normal air movement Cardiovascular: regular rate and rhythm, nl pulses Gastrointestinal: soft, nl liver, spleen, non-tender Musculoskeletal: nl extremities to inspection, nl gait and stance Extremities: normal pulses Neurological: INSTRUMENT STERILIZER II-XII intact, nl mental status, nl speech, nl strength Skin: nl turgor; No rash or lesions Lymph: nl lymph nodes Results Results 24hrs Laboratory Tests Test 11/19/18 17:37 11/19/18 21:01 11/20/18 02:10 11/20/18 08:14 Bedside Glucose 212 232 H 122 127 Test 11/20/18 11:46 Bedside Glucose 148 Medications Medication Current Medications Vancomycin HCl (Vanco Iv Per Pharmacy) VANCOMYCIN PER PHARMACY PER PROTOCOL XX ; Start 11/12/18 at 22:00 Amlodipine Besylate (Norvasc) 10 mg DAILY PO Last administered on 11/20/18 09:32; Admin Dose 10 MG; Start 11/13/18 at 09:00 Ascorbic Acid (Vitamin C) 500 mg DAILY PO Last administered on 11/20/18 09:32; Admin Dose 500 MG; Start 11/13/18 at 09:00 Atorvastatin Calcium (Lipitor) 40 mg HS PO Last administered on 11/19/18at 21:04; Admin Dose 40 MG; Start 11/13/18 at 21:00 Carvedilol (Coreg) 12.5 mg BID PO Last administered on 11/20/18 09:32; Admin Dose 12.5 MG; Start 11/12/18 at 22:00 Montelukast Sodium (Singulair) 10 mg HS PO Last administered on 11/19/18at 2 1:04; Admin Dose 10 MG; Start 11/13/18 at 21:00 Sodium Chloride 1,000 ml @ 50 mls/hr Q20H IV Last administered on 11/20/18 09:45; Admin Dose 50 MLS/HR; Start 11/12/18 at 22:00 IV Flush (NS 3 ml) 3 ml PER PROTOCOL IV ; Start 11/12/18 at 22:00 Ondansetron HCl (Zofran Inj) 4 mg Q6H PRN IV NAUSEA/VOMITING Last administered on 11/20/18 11:43; Admin Dose 4 MG; Start 11/12/18 at 22:00 Acetaminophen (Tylenol Tab) 650 mg Q6H PRN PO .PAIN 1-3 OR TEMP; Start 11/12/18 at 22:00 Acetaminophen/ Hydrocodone Bitart ([place] (5/325)) 1 tab Q6H PRN PO .PAIN 4-6 Last administered on 11/17/18 09:43; Admin Dose 1 TAB; Start 11/12/18 at 22:00 Hydralazine HCl (Apresoline) 10 mg Q4H PRN IV ELEVATED BLOOD PRESSURE Last administered on 11/20/18 02:11; Admin Dose 10 MG; Start 11/13/18 at 00:00 [facility] This patient rodríguez... PRN PRN XX WOUND CARE; Start 11/13/18 at 06:30 Nystatin (Nystatin Powder) 1 applic BID TOP Last administered on 11/20/18 11:38; Admin Dose 1 APPLIC; Start 11/13/18 at 13:00 Insulin Glargine (Lantus) 12 units DAILY@2000 SC Last administered on 11/19/18 21:00; Admin Dose 12 UNITS; Start 11/13/18 at 20:00 Diagnostic Test (Pha) (Accu-Chek) 1 ea 02 XX Last administered on 11/18/18 02:04; Admin Dose 1 EA; Start 11/14/18 at 02:00 Insulin Aspart (Novolog Insulin Pen) NOVOLOG *MILD* ALGORITHM WITH MEALS BEDTIME SC Last administered on 11/20/18 11:48; Admin Dose 1 UNIT; Start 11/14/18 at 08:00 Miscellaneous Information 1 ea NOTE XX ; Start 11/14/18 at 00:30 Glucose (Glutose) 15 gm Q15M PRN PO DECREASED GLUCOSE; Start 11/14/18 at 00:30 Glucose (Glutose) 22.5 gm Q15M PRN PO DECREASED GLUCOSE; Start 11/14/18 at 00:30 Dextrose (D50w Syringe) 25 ml Q15M PRN IV DECREASED GLUCOSE; Start 11/14/18 at 00:30 Dextrose (D50w Syringe) 50 ml Q15M PRN IV DECREASED GLUCOSE; Start 11/14/18 at 00:30 Glucagon (Glucagen) 1 mg Q15M PRN IM DECREASED GLUCOSE; Start 11/14/18 at 00:30 Glucose (Glutose) 15 gm Q15M PRN BUCCAL DECREASED GLUCOSE Last administered on 11/14/18 08:14; Admin Dose 15 GM; Start 11/14/18 at 00:30 Bupropion HCl (Wellbutrin Sr) 150 mg BID PO Last administered on 11/20/18 09:31; Admin Dose 150 MG; Start 11/14/18 at 21:00 Polyethylene Glycol (Miralax) 17 gm BID PO Last administered on 11/20/18 09:38; Admin Dose 17 GM; Start 11/14/18 at 21:00 Sucralfate (Carafate) 1 gm AC MEALS AND BEDTIME PO Last administered on 11/20/18 11:43; Admin Dose 1 GM; Start 11/14/18 at 17:35 Zinc Sulfate (Zinc Sulfate) 220 mg DAILY PO Last administered on 11/20/18 09:31; Admin Dose 220 MG; Start 11/15/18 at 09:00 Multivitamins/ Minerals (Theragran-M) 1 tab DAILY PO Last administered on 11/20/18 09:31; Admin Dose 1 TAB; Start 11/15/18 at 09:00 Sodium Biphosphate/ Sodium Phosphate (Fleet Enema) 133 ml DAILY PRN [place] CONSTIPATION Last administered on 11/18/18 15:43; Admin Dose 133 ML; Start 11/15/18 at 16:00 Bisacodyl (Dulcolax Supp) 10 mg Q48H PRN [place] CONSTIPATION Last administered on 11/19/18 15:23; Admin Dose 10 MG; Start 11/15/18 at 20:00 Enoxaparin Sodium (Lovenox) 40 mg DAILY SC Last administered on 11/20/18 09:30; Admin Dose 40 MG; Start 11/17/18 at 09:00 Pantoprazole (Protonix Tab) 40 mg DAILY@06 PO Last administered on 11/20/18 06:05; Admin Dose 40 MG; Start 11/17/18 at 06:00 Aspirin (Halfprin) 81 mg DAILY PO Last administered on 11/20/18 09:31; Admin Dose 81 MG; Start 11/16/18 at 17:00 Clopidogrel Bisulfate (plaVIX) 75 mg DAILY PO Last administered on 11/20/18 09:30; Admin Dose 75 MG; Start 11/16/18 at 17:00 Lisinopril (Zestril) 40 mg DAILY PO Last administered on 11/20/18 09:32; Admin Dose 40 MG; Start 11/18/18 at 09:00 Vancomycin HCl 250 ml @ 125 mls/hr Q24H IVPB Last administered on 11/20/18 05:23; Admin Dose 125 MLS/HR; Start 11/18/18 at 05:30 Morphine Sulfate (morphine) 6 mg Q4H PRN PO SEVERE PAIN LEVEL 7-10 Last administered on 11/20/18 06:07; Admin Dose 6 MG; Start 11/17/18 at 22:30 Aztreonam 50 ml @ 100 mls/hr Q8 IVPB Last administered on 11/20/18 13:18; Admin Dose 100 MLS/HR; Start 11/18/18 at 10:00 Hydralazine HCl (Apresoline) 100 mg TID PO Last administered on 11/20/18 13:17; Admin Dose 100 MG; Start 11/18/18 at 21:00 Bisacodyl (Dulcolax) 10 mg DAILY PRN PO CONSTIPATION Last administered on 11/19/18 16:19; Admin Dose 10 MG; Start 11/19/18 at 14:30 HUNG HERNANDEZ MD Nov 20, 2018 14:07
[2018-11-20 14:22] VITALS: BP 147/73; PULSE 84; RESP 18
--- NOTE | 2018-11-20 16:32 | PN ---
Date/Time of Note Date/Time of Note DATE: 11/20/18 TIME: 16:32 Assessment/Plan VTE Prophylaxis Risk score (from Nsg)>0 risk: 6 Pharmacological prophylaxis: other Lines/Catheters IV Catheter Type (from Nrsg): PICC Line Central line still needed: Yes Assessment/Plan Assessment/Plan Left foot chronic osteomyelitis - s/p excisional debridement Left foot diabetic ulcer - s/p skin allograft application Charcot neuroarthropathy PAD DM2 with peripheral neuropathy Nausea Plan Dressings were changed. Plan to keep clean dry and intact. Non weight bearing to the left lower extremity. Patient had recent angioplasty with posterior tibial artery run off and per vascular she is optimized. Continue with IV abx. IM managing nausea. Patient will likely need staged debridements and future reconstruction of charcot joints. Depending on her progress will plan for future procedures at a later date. X-rays reviewed no fracture fragments appreciated to the R foot. Result Diagram: 11/18/18 0542 11/19/18 0534 Results 24hrs Laboratory Tests Test 11/19/18 17:37 11/19/18 21:01 11/20/18 02:10 11/20/18 08:14 Bedside Glucose 212 232 H 122 127 Test 11/20/18 11:46 Bedside Glucose 148 Subjective 24 Hr Interval Summary Free Text/Dictation No acute events overnight. Exam/Review of Systems Exam Vitals Vital Signs Date Temp Pulse Resp B/P (MAP) Pulse Ox O2 O2 Flow FiO2 Time Delivery Rate 11/20/18 98.3 84 18 147/73 98 Room Air 14:22 (97) Intake and Output 11/19/18 11/19/18 11/20/18 1515:00 23:00 07:00 IntakeIntake Total 1070 ml 700 ml 350 ml OutputOutput Total 600 ml 500 ml BalanceBalance 470 ml 200 ml 350 ml Exam Grafts are in place with skin edges approximated and secured with skin sutures. Skin temperature gradient warm to warm from proximal leg to distal feet There is CFT less than 3 seconds to the digits Left foot dorsal ulceration 7 x 9 x 0.6cm with skin allograft attached. Left posterior heel 4 x 5 x 0.5cm with skin allograft attached. Medial and lateral aspect ulcerations reapproximated with skin flaps there is eschar formation Lateral 5th digit with skin allograft attachment. Two pin sites in place and intact without loosening appreciated. Absent protective sensations Results Results 24hrs Laboratory Tests Test 11/19/18 17:37 11/19/18 21:01 11/20/18 02:10 11/20/18 08:14 Bedside Glucose 212 232 H 122 127 Test 11/20/18 11:46 Bedside Glucose 148 Medications Medication Current Medications Vancomycin HCl (Vanco Iv Per Pharmacy) VANCOMYCIN PER PHARMACY PER PROTOCOL XX ; Start 11/12/18 at 22:00 Amlodipine Besylate (Norvasc) 10 mg DAILY PO Last administered on 11/20/18 09:32; Admin Dose 10 MG; Start 11/13/18 at 09:00 Ascorbic Acid (Vitamin C) 500 mg DAILY PO Last administered on 11/20/18 09:32; Admin Dose 500 MG; Start 11/13/18 at 09:00 Atorvastatin Calcium (Lipitor) 40 mg HS PO Last administered on 11/19/18 21:04; Admin Dose 40 MG; Start 11/13/18 at 21:00 Carvedilol (Coreg) 12.5 mg BID PO Last administered on 11/20/18 09:32; Admin Dose 12.5 MG; Start 11/12/18 at 22:00 Montelukast Sodium (Singulair) 10 mg HS PO Last administered on 11/19/18 21:04; Admin Dose 10 MG; Start 11/13/18 at 21:00 IV Flush (NS 3 ml) 3 ml PER PROTOCOL IV ; Start 11/12/18 at 22:00 Ondansetron HCl (Zofran Inj) 4 mg Q6H PRN IV NAUSEA/VOMITING Last administered on 11/20/18 11:43; Admin Dose 4 MG; Start 11/12/18 at 22:00 Acetaminophen (Tylenol Tab) 650 mg Q6H PRN PO .PAIN 1-3 OR TEMP; Start 11/12/18 at 22:00 Acetaminophen/ Hydrocodone Bitart ([place] (5/325)) 1 tab Q6H PRN PO .PAIN 4-6 Last administered on 11/17/18 09:43; Admin Dose 1 TAB; Start 11/12/18 at 22:00 Hydralazine HCl (Apresoline) 10 mg Q4H PRN IV ELEVATED BLOOD PRESSURE Last administered on 11/20/18 02:11; Admin Dose 10 MG; Start 11/13/18 at 00:00 Miscellaneous Information (Pending [facility] Order For Wound Care) This patient rodríguez... PRN PRN XX WOUND CARE; Start 11/13/18 at 06:30 Nystatin (Nystatin Powder) 1 applic BID TOP Last administered on 11/20/18 11:38; Admin Dose 1 APPLIC; Start 11/13/18 at 13:00 Insulin Glargine (Lantus) 12 units DAILY@2000 SC Last administered on 11/19/18 21:00; Admin Dose 12 UNITS; Start 11/13/18 at 20:00 Insulin Aspart (Novolog Insulin Pen) NOVOLOG *MILD* ALGORITHM WITH MEALS BEDTIM E SC Last administered on 11/20/18 11:48; Admin Dose 1 UNIT; Start 11/14/18 at 08:00 Miscellaneous Information 1 ea NOTE XX ; Start 11/14/18 at 00:30 Glucose (Glutose) 15 gm Q15M PRN PO DECREASED GLUCOSE; Start 11/14/18 at 00:30 Glucose (Glutose) 22.5 gm Q15M PRN PO DECREASED GLUCOSE; Start 11/14/18 at 00:30 Dextrose (D50w Syringe) 25 ml Q15M PRN IV DECREASED GLUCOSE; Start 11/14/18 at 00:30 Dextrose (D50w Syringe) 50 ml Q15M PRN IV DECREASED GLUCOSE; Start 11/14/18 at 00:30 Glucagon (Glucagen) 1 mg Q15M PRN IM DECREASED GLUCOSE; Start 11/14/18 at 00:30 Glucose (Glutose) 15 gm Q15M PRN BUCCAL DECREASED GLUCOSE Last administered on 11/14/18at 08:14; Admin Dose 15 GM; Start 11/14/18 at 00:30 Bupropion HCl (Wellbutrin Sr) 150 mg BID PO Last administered on 11/20/18 09:31; Admin Dose 150 MG; Start 11/14/18 at 21:00 Polyethylene Glycol (Miralax) 17 gm BID PO Last administered on 11/20/18 09:38; Admin Dose 17 GM; Start 11/14/18 at 21:00 Sucralfate (Carafate) 1 gm AC MEALS AND BEDTIME PO Last administered on 11/20/18 11:43; Admin Dose 1 GM; Start 11/14/18 at 17:35 Zinc Sulfate (Zinc Sulfate) 220 mg DAILY PO Last administered on 11/20/18 09:31; Admin Dose 220 MG; Start 11/15/18 at 09:00 Multivitamins/ Minerals (Theragran-M) 1 tab DAILY PO Last administered on 11/20/18 09:31; Admin Dose 1 TAB; Start 11/15/18 at 09:00 Sodium Biphosphate/ Sodium Phosphate (Fleet Enema) 133 ml DAILY PRN [place] CONSTIPATION Last administered on 11/18/18 15:43; Admin Dose 133 ML; Start 10/30 04/16 at 16:00 Bisacodyl (Dulcolax Supp) 10 mg Q48H PRN [place] CONSTIPATION Last administered on 11/19/18 15:23; Admin Dose 10 MG; Start 11/15/18 at 20:00 Enoxaparin Sodium (Lovenox) 40 mg DAILY SC Last administered on 11/20/18 09:30; Admin Dose 40 MG; Start 11/17/18 at 09:00 Pantoprazole (Protonix Tab) 40 mg DAILY@06 PO Last administered on 11/20/18 06:05; Admin Dose 40 MG; Start 11/17/18 at 06:00 Aspirin (Halfprin) 81 mg DAILY PO Last administered on 11/20/18 09:31; Admin Dose 81 MG; Start 11/16/18 at 17:00 Clopidogrel Bisulfate (plaVIX) 75 mg DAILY PO Last administered on 11/20/18 09:30; Admin Dose 75 MG; Start 11/16/18 at 17:00 Lisinopril (Zestril) 40 mg DAILY PO Last administered on 11/20/18 09:32; Admin Dose 40 MG; Start 11/18/18 at 09:00 Vancomycin HCl 250 ml @ 125 mls/hr Q24H IVPB Last administered on 11/20/18 05:23; Admin Dose 125 MLS/HR; Start 11/18/18 at 05:30 Morphine Sulfate (morphine) 6 mg Q4H PRN PO SEVERE PAIN LEVEL 7-10 Last administered on 11/20/18 06:07; Admin Dose 6 MG; Start 11/17/18 at 22:30 Aztreonam 50 ml @ 100 mls/hr Q8 IVPB Last administered on 11/20/18 13:18; Admin Dose 100 MLS/HR; Start 11/18/18 at 10:00 Hydralazine HCl (Apresoline) 100 mg TID PO Last administered on 11/20/18at 13:17; Admin Dose 100 MG; Start 11/18/18 at 21:00 Bisacodyl (Dulcolax) 10 mg DAILY PRN PO CONSTIPATION Last administered on 11/19/18at 16:19; Admin Dose 10 MG; Start 11/19/18 at 14:30 SHAILA FRIAS DPM Nov 20, 2018 16:32
[2018-11-20 20:00] VITALS: BP 150/70; PULSE 80; RESP 18
[2018-11-20] MEDS: INSULIN GLARGINE [LANTus] (100 UNITS/ML) SYG SC SCH (20:24)
[2018-11-20] MEDS: ATORVASTATIN 40 MG TAB PO SCH (20:25)
[2018-11-20] MEDS: MONTELUKAST 10 MG TAB PO SCH (20:25)
[2018-11-20 21:30] VITALS: BP 138/67
[2018-11-21 02:00] VITALS: BP 175/89; PULSE 89; RESP 18
[2018-11-21] MEDS: ONDANSETRON 4 MG INJ IV PRN ×2 (02:49→09:58)
[2018-11-21] MEDS: hydrALAzine 20 MG INJ IV PRN (02:49)
[2018-11-21 03:15] VITALS: BP 156/71; RESP 18
[2018-11-21] MEDS: PANTOPRAZOLE (EC) 40 MG TAB PO SCH (05:57)
[2018-11-21] MEDS: AZTREONAM 1 GM/NS (PMX) 50 ML IVPB SCH ×3 (05:57→21:17)
[2018-11-21] MEDS: VANCOMYCIN 1 GM 250 ML IVPB SCH (06:34)
[2018-11-21] MEDS: INSULIN ASPART [NOVOLOG] 3 ML PEN SC SCH ×4 (08:00→21:15)
[2018-11-21 08:09] VITALS: BP 149/94; PULSE 101; RESP 16
[2018-11-21] MEDS: ASCORBIC ACID 500 MG TAB PO SCH (09:57)
[2018-11-21] MEDS: CLOPIDOGREL 75 MG TAB PO SCH (09:57)
[2018-11-21] MEDS: BUPROPION (SR) 150 MG TAB PO SCH ×2 (09:57→21:11)
[2018-11-21] MEDS: SUCRALFATE 1 GM TAB PO SCH ×4 (09:58→21:11)
[2018-11-21] MEDS: AMLODIPINE 10 MG TAB PO SCH (09:58)
[2018-11-21] MEDS: ASPIRIN (EC) 81 MG TAB PO SCH (09:58)
[2018-11-21] MEDS: MULTIVITAMINS/MINERALS TAB PO SCH (09:58)
[2018-11-21] MEDS: ENOXAPARIN 40 MG/0.4 ML SYG SC SCH (09:59)
[2018-11-21] MEDS: LISINOPRIL 20 MG TAB PO SCH (10:00)
[2018-11-21] MEDS: POLYETHYLENE GLYCOL 17 GM PACKET PO SCH ×2 (10:04→21:18)
[2018-11-21] MEDS: ZINC SULFATE 220 MG CAP PO SCH (10:05)
[2018-11-21] MEDS: NYSTATIN 30 GM POWDER BTL TOP SCH ×2 (10:06→21:18)
[2018-11-21 14:19] VITALS: BP 152/69; PULSE 75; RESP 16
--- NOTE | 2018-11-21 14:37 | PN ---
Date/Time of Note Date/Time of Note DATE: 11/21/18 TIME: 14:36 Assessment/Plan VTE Prophylaxis Risk score (from Nsg)>0 risk: 6 SCD applied (from Nsg): Yes Pharmacological prophylaxis: heparin Lines/Catheters IV Catheter Type (from Nrsg): PICC Line Central line still needed: Yes Assessment/Plan Hospital Course Assessment and plan: 53-year-old female with a past medical history of hype rtension, hyperlipidemia, CHF, diabetes, COPD, chronic osteomyelitis with left lower extremity diabetic ulcers requiring previous debridement, presenting from the wound care clinic for evaluation of the wounds. # Chronic osteomyelitis -left foot/lower extremity -again status post surgical debridemen -Continue IV antibiotic -Follow-up final postoperative recommendations from podiatry, including wound care # Nausea - suspect from constipation. Bowel regimen # Dyslipidemia -Resume home meds when able # Peripheral arterial disease -Continue home meds when able, including aspirin and Plavix in 24 hours if okay with podiatry team and no signs of bleeding noted # Hypertension -presently stable -Continue home meds when able # Diabetes mellitus -current A1c was 6.1. Sugars appear stable -Monitor sugars, continue sliding scale insulin and current Lantus dose Result Diagram: 11/18/18 0542 11/21/18518 Results 24hrs Laboratory Tests Test 11/20/18 17:50 11/20/18 20:22 11/21/18 05:19 11/21/18 08:12 Bedside Glucose 232 H 118 85 Blood Urea Nitrogen 24 H Creatinine 1.08 H Test 11/21/18 12:12 Bedside Glucose 161 Subjective 24 Hr Interval Summary Free Text/Dictation Complains of nausea and constipation. Requests laxatives, enema Exam/Review of Systems Exam Vitals Vital Signs Date Temp Pulse Resp B/P (MAP) Pulse Ox O2 O2 Flow FiO2 Time Delivery Rate 11/21/18 98.1 75 16 152/69 95 14:19 (96) 11/21/18 Room Air 02:00 Intake and Output 11/20/18 11/20/18 11/21/18 1515:00 23:00 07:00 IntakeIntake Total 2100 ml 470 ml 350 ml OutputOutput Total 1200 ml 600 ml 300 ml BalanceBalance 900 ml -130 ml 50 ml Constitutional: alert, oriented, well developed Psych: no complaints, nl mood/affect Head: normocephalic, atraumatic Eyes: nl conjunctiva, EOMI, nl lids, nl sclera, PERRL ENMT: nl external ears & nose, nl lips & teeth, nl nasal mucosa & septum Neck: supple, non-tender Respiratory: clear to auscultation, normal air movement Cardiovascular: regular rate and rhythm, nl pulses Gastrointestinal: soft, nl liver, spleen, non-tender Musculoskeletal: nl extremities to inspection, nl gait and stance Extremities: normal pulses Neurological: CREDIT SUPPORT SPECIALIST II-XII intact, nl mental status, nl speech, nl strength Skin: nl turgor; No rash or lesions Lymph: nl lymph nodes Results Results 24hrs Laboratory Tests Test 11/20/18 17:50 11/20/18 20:22 11/21/18 05:19 11/21/18 08:12 Bedside Glucose 232 H 118 85 Blood Urea Nitrogen 24 H Creatinine 1.08 H Test 11/21/18 12:12 Bedside Glucose 161 Medications Medication Current Medications Vancomycin HCl (Vanco Iv Per Pharmacy) VANCOMYCIN PER PHARMACY PER PROTOCOL XX ; Start 11/12/18 at 22:00 Amlodipine Besylate (Norvasc) 10 mg DAILY PO Last administered on 11/21/18 09:58; Admin Dose 10 MG; Start 11/13/18 at 09:00 Ascorbic Acid (Vitamin C) 500 mg DAILY PO Last administered on 11/21/18 09:57; Admin Dose 500 MG; Start 11/13/18 at 09:00 Atorvastatin Calcium (Lipitor) 40 mg HS PO Last administered on 11/20/18 20:25; Admin Dose 40 MG; Start 11/13/18 at 21:00 Carvedilol (Coreg) 12.5 mg BID PO Last administered on 11/21/18 09:57; Admin Dose 12.5 MG; Start 11/12/18 at 22:00 Montelukast Sodium (Singulair) 10 mg HS PO Last administered on 11/20/18 20:25; Admin Dose 10 MG; Start 11/13/18 at 21:00 IV Flush (NS 3 ml) 3 ml PER PROTOCOL IV ; Start 11/12/18 at 22:00 Ondansetron HCl (Zofran Inj) 4 mg Q6H PRN IV NAUSEA/VOMITING Last administered on 11/21/18 09:58; Admin Dose 4 MG; Start 11/12/18 at 22:00 Acetaminophen (Tylenol Tab) 650 mg Q6H PRN PO .PAIN 1-3 OR TEMP; Start 11/12/18 at 22:00 Acetaminophen/ Hydrocodone Bitart ([place] (5/325)) 1 tab Q6H PRN PO .PAIN 4-6 Last administered on 11/17/18 09:43; Admin Dose 1 TAB; Start 11/12/18 at 22:00 Hydralazine HCl (Apresoline) 10 mg Q4H PRN IV ELEVATED BLOOD PRESSURE Last administered on 11/21/18 02:49; Admin Dose 10 MG; Start 11/13/18 at 00:00 Miscellaneous Information (Pending [facility] Order For Wound Care) This patient rodríguez... PRN PRN XX WOUND CARE; Start 11/13/18 at 06:30 Nystatin (Nystatin Powder) 1 applic BID TOP Last administered on 11/21/18 10:06; Admin Dose 1 APPLIC; Start 11/13/18 at 13:00 Insulin Glargine (Lantus) 12 units DAILY@2000 SC Last administered on 11/20/18 20:24; Admin Dose 12 UNITS; Start 11/13/18 at 20:00 Insulin Aspart (Novolog Insulin Pen) NOVOLOG *MILD* ALGORITHM WITH MEALS BEDTIME SC Last administered on 11/21/18 12:15; Admin Dose 1 UNIT; Start 11/14/18 at 08:00 Miscellaneous Information 1 ea NOTE XX ; Start 11/14/18 at 00:30 Glucose (Glutose) 15 gm Q15M PRN PO DECREASED GLUCOSE; Start 11/14/18 at 00:30 Glucose (Glutose) 22.5 gm Q15M PRN PO DECREASED GLUCOSE; Start 11/14/18 at 00:30 Dextrose (D50w Syringe) 25 ml Q15M PRN IV DECREASED GLUCOSE; Start 11/14/18 at 00:30 Dextrose (D50w Syringe) 50 ml Q15M PRN IV DECREASED GLUCOSE; Start 11/14/18 at 00:30 Glucagon (Glucagen) 1 mg Q15M PRN IM DECREASED GLUCOSE; Start 11/14/18 at 00:30 Glucose (Glutose) 15 gm Q15M PRN BUCCAL DECREASED GLUCOSE Last administered on 11/14/18at 08:14; Admin Dose 15 GM; Start 11/14/18 at 00:30 Bupropion HCl (Wellbutrin Sr) 150 mg BID PO Last administered on 11/21/18 09:57; Admin Dose 150 MG; Start 11/14/18 at 21:00 Polyethylene Glycol (Miralax) 17 gm BID PO Last administered on 11/21/18 10:04; Admin Dose 17 GM; Start 11/14/18 at 21:00 Sucralfate (Carafate) 1 gm AC MEALS AND BEDTIME PO Last administered on 11/21/18 12:09; Admin Dose 1 GM; Start 11/14/18 at 17:35 Zinc Sulfate (Zinc Sulfate) 220 mg DAILY PO Last administered on 11/21/18 10:05; Admin Dose 220 MG; Start 11/15/18 at 09:00 Multivitamins/ Minerals (Theragran-M) 1 tab DAILY PO Last administered on 11/21/18 09:58; Admin Dose 1 TAB; Start 11/15/18 at 09:00 Sodium Biphosphate/ Sodium Phosphate (Fleet Enema) 133 ml DAILY PRN [place] CONSTIPATION Last administered on 11/18/18 15:43; Admin Dose 133 ML; Start 11/15/18 at 16:00 Bisacodyl (Dulcolax Supp) 10 mg Q48H PRN [place] CONSTIPATION Last administered on 11/19/18 15:23; Admin Dose 10 MG; Start 11/15/18 at 20:00 Enoxaparin Sodium (Lovenox) 40 mg DAILY SC Last administered on 11/21/18 09:59; Admin Dose 40 MG; Start 11/17/18 at 09:00 Pantoprazole (Protonix Tab) 40 mg DAILY@06 PO Last administered on 11/21/18 05:57; Admin Dose 40 MG; Start 11/17/18 at 06:00 Aspirin (Halfprin) 81 mg DAILY PO Last administered on 11/21/18 09:58; Admin Dose 81 MG; Start 11/16/18 at 17:00 Clopidogrel Bisulfate (plaVIX) 75 mg DAILY PO Last administered on 11/21/18 09:57; Admin Dose 75 MG; Start 11/16/18 at 17:00 Lisinopril (Zestril) 40 mg DAILY PO Last administered on 11/21/18 10:00; Admin Dose 40 MG; Start 11/18/18 at 09:00 Vancomycin HCl 250 ml @ 125 mls/hr Q24H IVPB Last administered on 11/21/18 06:34; Admin Dose 125 MLS/HR; Start 11/18/18 at 05:30 Morphine Sulfate (morphine) 6 mg Q4H PRN PO SEVERE PAIN LEVEL 7-10 Last administered on 11/20/18 06:07; Admin Dose 6 MG; Start 11/17/18 at 22:30 Aztreonam 50 ml @ 100 mls/hr Q8 IVPB Last administered on 11/21/18 13:44; Admin Dose 100 MLS/HR; Start 11/18/18 at 10:00 Hydralazine HCl (Apresoline) 100 mg TID PO Last administered on 11/21/18 13:50; Admin Dose 100 MG; Start 11/18/18 at 21:00 Bisacodyl (Dulcolax) 10 mg DAILY PRN PO CONSTIPATION Last administered on 11/19/18 16:19; Admin Dose 10 MG; Start 11/19/18 at 14:30 Miscellaneous Information (*Rx Drug Level Order Reminder*) VANCO TROUGH @ 0,430 ONCE ONCE XX ; Start 11/22/18 at 04:30; Stop 11/22/18 at 04:31 HUNG HERNANDEZ MD Nov 21, 2018 14:37
[2018-11-21] MEDS ORDERED: NA PHOSPHATE/BIPHOS 133 ML ENEMA PR ONE (15:00)
[2018-11-21 20:00] VITALS: BP 149/81; PULSE 79; RESP 18
[2018-11-21] MEDS: ATORVASTATIN 40 MG TAB PO SCH (21:12)
[2018-11-21] MEDS: INSULIN GLARGINE [LANTus] (100 UNITS/ML) SYG SC SCH (21:15)
--- NOTE | 2018-11-21 22:51 | CONS ---
Assessment/Plan Assessment/Plan Hospital Course (Demo Recall) ID PROGRESS NOTE CURRENT ABX: DAY # Vanco IV + AZACTAM #6 + VFEND #4 Cefepime ->DC' 11/16 24H INTERVAL SUMMARY * She is currently sleeping and not disturbed VSS, NO FEVERS, NAD, WITHOUT DYSPNEA * POD # 8 LEFT FOOT I&D DRESSING WAS CHANGED YESTERDAY BY MD FRIAS * s/p left foot I&D 11/13/18-> Wound and tissue cx (+)PSAR -- prior cx now (+)YEAST/PSAR/CoNS * 11/13/18 PATHO REPORT MICROSCOPIC DIAGNOSIS: A-Bone, left foot: -- Chronic osteomyelitis, focal, involving cancellous bone, with reactive new bone formation, marrow fibrosis and fragments of granulation tissue ulcer base. -- Isolated fragment of necrotic hyaline cartilage. -- There is no evidence of malignancy. B-Soft tissue, heel of left foot: -- Gangrenous necrosis of dermis and subcutaneous tissue, extensive, with focal intense acute inflammation. -- There is no evidence of malignancy. MICRO * 11/13/18 LEFT FOOT TISSUE BX (+) TISSUE (BIOPSY) CULTURE Final Organism 1 PSEUDOMONAS AERUGINOSA QUANTITY 3+ P.AERUG P.AERUG M.I.C. RX M.I.C. RX --------- --- --------- --- AMIKACIN <=2 S AZTREONAM S CEFEPIME 16 I CEFTAZIDIME >=64 R CIPROFLOXACIN >=4 R GENTAMICIN <=1 S LEVOFLOXACIN >=8 R MEROPENEM 3 S TOBRAMYCIN <=1 S PIPERACILLIN/TAZOBACTAM R * 11/13/18 LEFT FOOT CX (+) (+) FUNGAL CULTURE Preliminary Organism 1 YEAST QUANTITY RARE * OUND CULTURE Final Organism 1 PSEUDOMONAS AERUGINOSA QUANTITY SCANT GROWTH Organism 2 COAGULASE NEGATIVE STAPH QUANTITY RARE PHYSICAL EXAMINATION: GENERAL: Afebrile, VSS, A/A/O HEENT: AT, NC, anicteric NECK: Supple, CHEST: Equal chest rise bilaterally, without dyspnea on observation HEART: Pulse RRR ABDOMEN: Soft / NT EXTREMITIES: Warm, dry - Left foot DSG C/D/I (+)LUEXT edema SKIN: No rash, no diaphoresis ID ASSESSMENT 53 yo F admit with: 1. SIRS s/ persistent leukocytosis -> S/p sepsis with bacteremia on admission likely secondary to #2 & #3 => RESOLVED 2. POD # 2/15/ => TISSUE CX (+) PSAR * Preoperative Diagnosis Left foot ulceration OM left foot Dm2 with PN Charcot left foot DFU left foot Postoperative Diagnosis: same * Operation/Procedure Performed Left foot debridement of heel skin, subcut, ligament 4x 5 cm Left foot debridement of skin, subcut, bone dorsal foot 10 x 8 cm Left foot application of integra Left foot local rotation flap closure 1st MPJ Left foot local rotation flap closure 5th MPJ Biopsy of bone 5th metatarsal 4. Diabetes type 2 w/complication of DM peripheral neuropathy 5. Peripheral arterial disease 6. Acute kidney insufficiency on CKD 7. History of transaminitis secondary to Daptomycin 8. Anemia of chronic disease and iron deficiency 9. Essential HTN w/hx of HTN urgency 10. Hx of Left upper extremity thrombus w/edema 11. Hypercoagulable state 12. Hx of COPD-Asthma = asymptomatic 13. OPIOID INDUCED CONSTIPATION * s/p vasovagal episode in setting of opioid constipation while attempting to pass stool on commode 14. CAD and Hx of HF -- stable 15. S/P Pseudomonas and E. coli UTI = S/P TREATED (-)MRSA Nares ABX ALLERGIES: NKDA INVASIVES: PICC ->Right upper extremity PICC line, present on admission, FC CURRENT ABX: DAY # Vanco IV + AZACTAM #6 + VFEND #4 Cefepime ->DC' 11/16 s/p Ampicillin + Levaquin ID RECOMMENDATIONS/PLAN: 1. Continue Vanco IV + Azactam as PSAR is developing resistance to Cefepime = Anticipate 4-6 weeks for report of osteomyelitis on imaging * Treat YEAST on superficial wound cx x 14 days w/VFEND * May DC when cleared by primary on current ABX to complete 4-6 weeks 2. Follow APC recommendations . Consultation Date/Type/Reason Admit Date/Time Nov 12, 2018 at 20:14 Initial Consult Date Date/Time of Note DATE: 2/23/19 TIME: 22:49 Exam/Review of Systems Exam Vitals Vital Signs Date Temp Pulse Resp B/P (MAP) Pulse Ox O2 O2 Flow FiO2 Time Delivery Rate 11/21/18 99.0 79 18 149/81 95 20:00 (103) 11/21/18 Room Air 02:00 Intake and Output 11/20/18 11/20/18 11/21/18 1515:00 23:00 07:00 IntakeIntake Total 2100 ml 470 ml 350 ml OutputOutput Total 1200 ml 600 ml 300 ml BalanceBalance 900 ml -130 ml 50 ml Results Result Diagram: 11/18/18 0542 11/21/18 0519 Results 24hrs Laboratory Tests Test 11/21/18 05:19 11/21/18 08:12 11/21/18 12:12 11/21/18 17:27 Blood Urea Nitrogen 24 H Creatinine 1.08 H Bedside Glucose 85 161 112 Test 11/21/18 20:48 Bedside Glucose 181 Medications Medication Current Medications Vancomycin HCl (Vanco Iv Per Pharmacy) VANCOMYCIN PER PHARMACY PER PROTOCOL XX ; Start 11/12/18 at 22:00 Ascorbic Acid (Vitamin C) 500 mg DAILY PO Last administered on 11/21/18at 09:57; Admin Dose 500 MG; Start 11/13/18 at 09:00 Atorvastatin Calcium (Lipitor) 40 mg HS PO Last administered on 11/21/18at 21:12; Admin Dose 40 MG; Start 11/13/18 at 21:00 Carvedilol (Coreg) 12.5 mg BID PO Last administered on 11/21/18at 21:12; Admin Dose 12.5 MG; Start 11/12/18 at 22:00 IV Flush (NS 3 ml) 3 ml PER PROTOCOL IV ; Start 11/12/18 at 22:00 Ondansetron HCl (Zofran Inj) 4 mg Q6H PRN IV NAUSEA/VOMITING Last administered on 11/21/18at 09:58; Admin Dose 4 MG; Start 11/12/18 at 22:00 Acetaminophen (Tylenol Tab) 650 mg Q6H PRN PO .PAIN 1-3 OR TEMP; Start 11/12/18 at 22:00 Acetaminophen/ Hydrocodone Bitart ([place] (5/325)) 1 tab Q6H PRN PO .PAIN 4-6 Last administered on 11/17/18 09:43; Admin Dose 1 TAB; Start 11/12/18 at 22:00 Hydralazine HCl (Apresoline) 10 mg Q4H PRN IV ELEVATED BLOOD PRESSURE Last administered on 11/21/18 02:49; Admin Dose 10 MG; Start 11/13/18 at 00:00 Miscellaneous Information ([facility] This patient rodríguez... PRN PRN XX WOUND CARE; Start 11/13/18 at 06:30 Nystatin (Nystatin Powder) 1 applic BID TOP Last administered on 11/21/18 21:18; Admin Dose 1 APPLIC; Start 11/13/18 at 13:00 Insulin Glargine (Lantus) 12 units DAILY@2000 SC Last administered on 11/21/18 21:15; Admin Dose 12 UNITS; Start 11/13/18 at 20:00 Insulin Aspart (Novolog Insulin Pen) NOVOLOG *MILD* ALGORITHM WITH MEALS BEDTIME SC Last administered on 11/21/18 21:15; Admin Dose 1 UNIT; Start 11/14/18 at 08:00 Miscellaneous Information 1 ea NOTE XX ; Start 11/14/18 at 00:30 Glucose (Glutose) 15 gm Q15M PRN PO DECREASED GLUCOSE; Start 11/14/18 at 00:30 Glucose (Glutose) 22.5 gm Q15M PRN PO DECREASED GLUCOSE; Start 11/14/18 at 00:30 Dextrose (D50w Syringe) 25 ml Q15M PRN IV DECREASED GLUCOSE; Start 11/14/18 at 00:30 Dextrose (D50w Syringe) 50 ml Q15M PRN IV DECREASED GLUCOSE; Start 11/14/18 at 00:30 Glucagon (Glucagen) 1 mg Q15M PRN IM DECREASED GLUCOSE; Start 11/14/18 at 00:30 Glucose (Glutose) 15 gm Q15M PRN BUCCAL DECREASED GLUCOSE Last administered on 11/14/18 08:14; Admin Dose 15 GM; Start 11/14/18 at 00:30 Bupropion HCl (Wellbutrin Sr) 150 mg BID PO Last administered on 11/21/18 21:11; Admin Dose 150 MG; Start 11/14/18 at 21:00 Polyethylene Glycol (Miralax) 17 gm BID PO Last administered on 11/21/18 21:18; Admin Dose 17 GM; Start 11/14/18 at 21:00 Sucralfate (Carafate) 1 gm AC MEALS AND BEDTIME PO Last administered on 11/21 21:11; Admin Dose 1 GM; Start 11/14/18 at 17:35 Zinc Sulfate (Zinc Sulfate) 220 mg DAILY PO Last administered on 11/21/18 10:05; Admin Dose 220 MG; Start 11/15/18 at 09:00 Sodium Biphosphate/ Sodium Phosphate (Fleet Enema) 133 ml DAILY PRN [place] CONSTIPATION Last administered on 11/18/18 15:43; Admin Dose 133 ML; Start 11/15/18 at 16:00 Bisacodyl (Dulcolax Supp) 10 mg Q48H PRN [place] CONSTIPATION Last administered on 11/19/18 15:23; Admin Dose 10 MG; Start 11/15/18 at 20:00 Enoxaparin Sodium (Lovenox) 40 mg DAILY SC Last administered on 11/21/18 09:59; Admin Dose 40 MG; Start 11/17/18 at 09:00 Aspirin (Halfprin) 81 mg DAILY PO Last administered on 11/21/18 09:58; Admin Dose 81 MG; Start 11/16/18 at 17:00 Clopidogrel Bisulfate (plaVIX) 75 mg DAILY PO Last administered on 11/21/18 09:57; Admin Dose 75 MG; Start 11/16/18 at 17:00 Lisinopril (Zestril) 40 mg DAILY PO Last administered on 11/21/18 10:00; Admin Dose 40 MG; Start 11/18/18 at 09:00 Vancomycin HCl 250 ml @ 125 mls/hr Q24H IVPB Last administered on 11/21/18 06:34; Admin Dose 125 MLS/HR; Start 11/18/18 at 05:30 Aztreonam 50 ml @ 100 mls/hr Q8 IVPB Last administered on 11/21/18 21:17; Admin Dose 100 MLS/HR; Start 11/18/18 at 10:00 Hydralazine HCl (Apresoline) 100 mg TID PO Last administered on 11/21/18 21 :12; Admin Dose 100 MG; Start 11/18/18 at 21:00 Bisacodyl (Dulcolax) 10 mg DAILY PRN PO CONSTIPATION Last administered on 11/19/18at 16:19; Admin Dose 10 MG; Start 11/19/18 at 14:30 Miscellaneous Information (*Rx Drug Level Order Reminder*) VANCO TROUGH @ 0,430 ONCE ONCE XX ; Start 11/22/18 at 04:30; Stop 11/22/18 at 04:31 BRENT HERRERA NP Nov 21, 2018 22:51
[2018-11-22 02:28] VITALS: BP 144/68; PULSE 79; RESP 18
[2018-11-22] MEDS: AZTREONAM 1 GM/NS (PMX) 50 ML IVPB SCH ×3 (05:39→23:14)
[2018-11-22] MEDS: VANCOMYCIN 1 GM 250 ML IVPB SCH (06:16)
[2018-11-22] MEDS: INSULIN ASPART [NOVOLOG] 3 ML PEN SC SCH ×4 (08:00→20:16)
[2018-11-22 08:06] VITALS: BP 179/88; PULSE 79; RESP 18
[2018-11-22] MEDS: POLYETHYLENE GLYCOL 17 GM PACKET PO SCH ×2 (08:21→20:08)
[2018-11-22] MEDS: CLOPIDOGREL 75 MG TAB PO SCH (08:21)
[2018-11-22] MEDS: ASCORBIC ACID 500 MG TAB PO SCH (08:22)
[2018-11-22] MEDS: SUCRALFATE 1 GM TAB PO SCH ×4 (08:22→20:07)
[2018-11-22] MEDS: BUPROPION (SR) 150 MG TAB PO SCH ×2 (08:22→20:07)
[2018-11-22] MEDS: ZINC SULFATE 220 MG CAP PO SCH (08:23)
[2018-11-22] MEDS: ENOXAPARIN 40 MG/0.4 ML SYG SC SCH (08:23)
[2018-11-22] MEDS: ASPIRIN (EC) 81 MG TAB PO SCH (08:23)
[2018-11-22] MEDS: LISINOPRIL 20 MG TAB PO SCH (08:23)
[2018-11-22] MEDS: NYSTATIN 30 GM POWDER BTL TOP SCH ×2 (08:24→20:07)
[2018-11-22 12:08] VITALS: BP 184/85
[2018-11-22] MEDS ORDERED: IBUPROFEN 200 MG TAB PO PRN (12:30)
--- NOTE | 2018-11-22 14:28 | CONS ---
Assessment/Plan Assessment/Plan Hospital Course (Demo Recall) ID PROGRESS NOTE CURRENT ABX: DAY # Vanco IV + AZACTAM #7 + VFEND #5 Cefepime ->DC' 11/16 24H INTERVAL SUMMARY * A/A/o mood seems improved, talking on the phone, smiling, polite, pleasant, VSS, NO FEVERS, NAD, WITHOUT DYSPNEA * POD # 9 LEFT FOOT I&D DRESSING WAS CHANGED FRIDAY * s/p left foot I&D 11/13/18-> Wound and tissue cx (+)PSAR -- prior cx now (+)YEAST/PSAR/CoNS * 11/13/18 PATHO REPORT MICROSCOPIC DIAGNOSIS: A-Bone, left foot: -- Chronic osteomyelitis, focal, involving cancellous bone, with reactive new bone formation, marrow fibrosis and fragments of granulation tissue ulcer base. -- Isolated fragment of necrotic hyaline cartilage. -- There is no evidence of malignancy. B-Soft tissue, heel of left foot: -- Gangrenous necrosis of dermis and subcutaneous tissue, extensive, with focal intense acute inflammation. -- There is no evidence of malignancy. MICRO * 11/13/18 LEFT FOOT TISSUE BX (+) TISSUE (BIOPSY) CULTURE Final Organism 1 PSEUDOMONAS AERUGINOSA QUANTITY 3+ P.AERUG P.AERUG M.I.C. RX M.I.C. RX --------- --- --------- --- AMIKACIN <=2 S AZTREONAM S CEFEPIME 16 I CEFTAZIDIME >=64 R CIPROFLOXACIN >=4 R GENTAMICIN <=1 S LEVOFLOXACIN >=8 R MEROPENEM 3 S TOBRAMYCIN <=1 S PIPERACILLIN/TAZOBACTAM R * 11/13/18 LEFT FOOT CX (+) (+) FUNGAL CULTURE Preliminary Organism 1 YEAST QUANTITY RARE * OUND CULTURE Final Organism 1 PSEUDOMONAS AERUGINOSA QUANTITY SCANT GROWTH Organism 2 COAGULASE NEGATIVE STAPH QUANTITY RARE PHYSICAL EXAMINATION: GENERAL: Afebrile, VSS, A/A/O HEENT: AT, NC, anicteric NECK: Supple, CHEST: Equal chest rise bilaterally, without dyspnea on observation HEART: Pulse RRR ABDOMEN: Soft / NT EXTREMITIES: Warm, dry - Left foot DSG C/D/I (+)LUEXT edema SKIN: No rash, no diaphoresis ID ASSESSMENT 53 yo F admit with: 1. SIRS s/ persistent leukocytosis -> S/p sepsis with bacteremia on admission likely secondary to #2 & #3 => RESOLVED 2. POD # 2// => TISSUE CX (+) PSAR * Preoperative Diagnosis Left foot ulceration OM left foot Dm2 with PN Charcot left foot DFU left foot Postoperative Diagnosis: same * Operation/Procedure Performed Left foot debridement of heel skin, subcut, ligament 4x 5 cm Left foot debridement of skin, subcut, bone dorsal foot 10 x 8 cm Left foot application of integra Left foot local rotation flap closure 1st MPJ Left foot local rotation flap closure 5th MPJ Biopsy of bone 5th metatarsal 4. Diabetes type 2 w/complication of DM peripheral neuropathy 5. Peripheral arterial disease 6. Acute kidney insufficiency on CKD 7. History of transaminitis secondary to Daptomycin 8. Anemia of chronic disease and iron deficiency 9. Essential HTN w/hx of HTN urgency 10. Hx of Left upper extremity thrombus w/edema 11. Hypercoagulable state 12. Hx of COPD-Asthma = asymptomatic 13. OPIOID INDUCED CONSTIPATION * s/p vasovagal episode in setting of opioid constipation while attempting to pass stool on commode 14. CAD and Hx of HF -- stable 15. S/P Pseudomonas and E. coli UTI = S/P TREATED (-)MRSA Nares ABX ALLERGIES: NKDA INVASIVES: PICC ->Right upper extremity PICC line, present on admission, FC CURRENT ABX: DAY # Vanco IV + AZACTAM #7 + VFEND #7 Cefepime ->DC' 11/16 s/p Ampicillin + Levaquin ID RECOMMENDATIONS/PLAN: 1. Continue Vanco IV + Azactam as PSAR is developing resistance to Cefepime = Anticipate 4-6 weeks for report of osteomyelitis on imaging * Treat YEAST on superficial wound cx x 14 days w/VFEND * May DC when cleared by primary on current ABX to complete 4-6 weeks 2. Follow APC recommendations . Consultation Date/Type/Reason Admit Date/Time Nov 12, 2018 at 20:14 Initial Consult Date Date/Time of Note DATE: 11/22/18 TIME: 14:27 Exam/Review of Systems Exam Vitals Vital Signs Date Temp Pulse Resp B/P (MAP) Pulse Ox O2 O2 Flow FiO2 Time Delivery Rate 11/22/18 184/85 77 12:08 (118) 11/22/18 98.3 79 18 08:06 11/21/18 Room Air 02:00 Intake and Output 11/21/18 11/21/18 11/22/18 1515:00 23:00 07:00 IntakeIntake Total 300 ml 50 ml OutputOutput Total 400 ml BalanceBalance -100 ml 50 ml Results Result Diagram: 11/18/18 0542 11/21/18 0519 Results 24hrs Laboratory Tests Test 11/21/18 17:27 11/21/18 20:48 11/22/18 01:52 11/22/18 04:31 Bedside Glucose 112 181 146 Vancomycin Level 13.4 Trough Test 11/22/18 07:51 11/22/18 11:57 Bedside Glucose 102 150 Medications Medication Current Medications Vancomycin HCl (Vanco Iv Per Pharmacy) VANCOMYCIN PER PHARMACY PER PROTOCOL XX ; Start 11/12/18 at 22:00 Ascorbic Acid (Vitamin C) 500 mg DAILY PO Last administered on 11/22/18at 08:22; Admin Dose 500 MG; Start 11/13/18 at 09:00 Atorvastatin Calcium (Lipitor) 40 mg HS PO Last administered on 11/21/18at 21:12; Admin Dose 40 MG; Start 11/13/18 at 21:00 Carvedilol (Coreg) 12.5 mg BID PO Last administered on 11/22/18at 08:22; Admin Dose 12.5 MG; Start 11/12/18 at 22:00 IV Flush (NS 3 ml) 3 ml PER PROTOCOL IV ; Start 11/12/18 at 22:00 Ondansetron HCl (Zofran Inj) 4 mg Q6H PRN IV NAUSEA/VOMITING Last administered on 11/21/18at 09:58; Admin Dose 4 MG; Start 11/12/18 at 22:00 Acetaminophen (Tylenol Tab) 650 mg Q6H PRN PO .PAIN 1-3 OR TEMP; Start 11/12/18 at 22:00 Hydralazine HCl (Apresoline) 10 mg Q4H PRN IV ELEVATED BLOOD PRESSURE Last administered on 11/21/18 02:49; Admin Dose 10 MG; Start 11/13/18 at 00:00 Miscellaneous Information (Pending [facility] Order For Wound Care) This patient rodríguez... PRN PRN XX WOUND CARE; Start 11/13/18 at 06:30 Nystatin (Nystatin Powder) 1 applic BID TOP Last administered on 11/22/18 08:24; Admin Dose 1 APPLIC; Start 11/13/18 at 13:00 Insulin Glargine (Lantus) 12 units DAILY@2000 SC Last administered on 11/21/18 21:15; Admin Dose 12 UNITS; Start 11/13/18 at 20:00 Insulin Aspart (Novolog Insulin Pen) NOVOLOG *MILD* ALGORITHM WITH MEALS BEDTIME SC Last administered on 11/22/18 12:03; Admin Dose 1 UNIT; Start 11/14/18 at 08:00 Miscellaneous Information 1 ea NOTE XX ; Start 11/14/18 at 00:30 Glucose (Glutose) 15 gm Q15M PRN PO DECREASED GLUCOSE; Start 11/14/18 at 00:30 Glucose (Glutose) 22.5 gm Q15M PRN PO DECREASED GLUCOSE; Start 11/14/18 at 00:30 Dextrose (D50w Syringe) 25 ml Q15M PRN IV DECREASED GLUCOSE; Start 11/14/18 at 00:30 Dextrose (D50w Syringe) 50 ml Q15M PRN IV DECREASED GLUCOSE; Start 11/14/18 at 00:30 Glucagon (Glucagen) 1 mg Q15M PRN IM DECREASED GLUCOSE; Start 11/14/18 at 00:30 Glucose (Glutose) 15 gm Q15M PRN BUCCAL DECREASED GLUCOSE Last administered on 11/14/18at 08:14; Admin Dose 15 GM; Start 11/14/18 at 00:30 Bupropion HCl (Wellbutrin Sr) 150 mg BID PO Last administered on 11/22/18at 0 8:22; Admin Dose 150 MG; Start 11/14/18 at 21:00 Polyethylene Glycol (Miralax) 17 gm BID PO Last administered on 11/22/18at 08:21; Admin Dose 17 GM; Start 11/14/18 at 21:00 Sucralfate (Carafate) 1 gm AC MEALS AND BEDTIME PO Last administered on 11/22/18 12:03; Admin Dose 1 GM; Start 11/14/18 at 17:35 Zinc Sulfate (Zinc Sulfate) 220 mg DAILY PO Last administered on 11/22/18 08:23; Admin Dose 220 MG; Start 11/15/18 at 09:00 Sodium Biphosphate/ Sodium Phosphate (Fleet Enema) 133 ml DAILY PRN [place] CONSTIPATION Last administered on 11/18/18 15:43; Admin Dose 133 ML; Start 11/15/18 at 16:00 Bisacodyl (Dulcolax Supp) 10 mg Q48H PRN [place] CONSTIPATION Last administered on 11/19/18 15:23; Admin Dose 10 MG; Start 11/15/18 at 20:00 Enoxaparin Sodium (Lovenox) 40 mg DAILY SC Last administered on 11/22/18 08:23; Admin Dose 40 MG; Start 11/17/18 at 09:00 Aspirin (Halfprin) 81 mg DAILY PO Last administered on 11/22/18 08:23; Admin Dose 81 MG; Start 11/16/18 at 17:00 Clopidogrel Bisulfate (plaVIX) 75 mg DAILY PO Last administered on 11/22/18 08:21; Admin Dose 75 MG; Start 11/16/18 at 17:00 Lisinopril (Zestril) 40 mg DAILY PO Last administered on 11/22/18 08:23; Admin Dose 40 MG; Start 11/18/18 at 09:00 Vancomycin HCl 250 ml @ 125 mls/hr Q24H IVPB Last administered on 11/22/18 06:16; Admin Dose 125 MLS/HR; Start 11/18/18 at 05:30 Aztreonam 50 ml @ 100 mls/hr Q8 IVPB Last administered on 11/22/18 14:10; Admin Dose 100 MLS/HR; Start 11/18/18 at 10:00 Hydralazine HCl (Apresoline) 100 mg TID PO Last administered on 11/22/18 12:06; Admin Dose 100 MG; Start 11/18/18 at 21:00 Bisacodyl (Dulcolax) 10 mg DAILY PRN PO CONSTIPATION Last administered on 11/19/18 16:19; Admin Dose 10 MG; Start 11/19/18 at 14:30 Ibuprofen (Motrin) 200 mg Q6H PRN PO MILD PAIN(1-3) OR TEMP>38C; Start 11/22/18 at 12:30 BRENT HERRERA NP Nov 22, 2018 14:28
[2018-11-22 14:36] VITALS: BP 143/71; PULSE 81
[2018-11-22] MEDS: NA PHOSPHATE/BIPHOS 133 ML ENEMA PR PRN (15:00)
--- NOTE | 2018-11-22 15:57 | PN ---
Date/Time of Note Date/Time of Note DATE: 11/22/18 TIME: 15:56 Assessment/Plan VTE Prophylaxis Risk score (from Nsg)>0 risk: 7 SCD applied (from Nsg): Yes Pharmacological prophylaxis: heparin Lines/Catheters IV Catheter Type (from Nrsg): PICC Line Central line still needed: Yes Assessment/Plan Hospital Course Assessment and plan: 53-year-old female with a past medical history of hype rtension, hyperlipidemia, CHF, diabetes, COPD, chronic osteomyelitis with left lower extremity diabetic ulcers requiring previous debridement, presenting from the wound care clinic for evaluation of the wounds. # Chronic osteomyelitis -left foot/lower extremity -again status post surgical debridemen -Continue IV antibiotic x 6 weeks per ID # Nausea - suspect from constipation. Bowel regimen. Add relistor # Dyslipidemia -Resume home meds when able # Peripheral arterial disease -Continue home meds when able, including aspirin and Plavix in 24 hours if okay with podiatry team and no signs of bleeding noted # Hypertension -presently stable -Continue home meds when able # Diabetes mellitus -current A1c was 6.1. Sugars appear stable -Monitor sugars, continue sliding scale insulin and current Lantus dose Discharge planning: ready for discharge to complete IV antibiotics course Result Diagram: 11/18/18 0542 11/21/18 0519 Results 24hrs Laboratory Tests Test 11/21/18 17:27 11/21/18 20:48 11/22/18 01:52 11/22/18 04:31 Bedside Glucose 112 181 146 Vancomycin Level 13.4 Trough Test 11/22/18 07:51 11/22/18 11:57 Bedside Glucose 102 150 Subjective 24 Hr Interval Summary Free Text/Dictation Continues to complain of abdoinal disension and discomfort Exam/Review of Systems Exam Vitals Vital Signs Date Temp Pulse Resp B/P (MAP) Pulse Ox O2 O2 Flow FiO2 Time Delivery Rate 11/22/18 97.8 81 143/71 14:36 (95) 11/22/18 77 12:08 11/22/18 18 08:06 11/21/18 Room Air 02:00 Intake and Output 11/21/18 11/21/18 11/22/18 1515:00 23:00 07:00 IntakeIntake Total 300 ml 50 ml OutputOutput Total 400 ml BalanceBalance -100 ml 50 ml Constitutional: alert, oriented, well developed Psych: no complaints, nl mood/affect Head: normocephalic, atraumatic Eyes: nl conjunctiva, EOMI, nl lids, nl sclera, PERRL ENMT: nl external ears & nose, nl lips & teeth, nl nasal mucosa & septum Neck: supple, non-tender Respiratory: clear to auscultation, normal air movement Cardiovascular: regular rate and rhythm, nl pulses Gastrointestinal: soft, nl liver, spleen, non-tender Musculoskeletal: nl extremities to inspection, nl gait and stance Extremities: normal pulses Neurological: TEST TECHNICIAN II-XII intact, nl mental status, nl speech, nl strength Skin: nl turgor; No rash or lesions Lymph: nl lymph nodes Results Results 24hrs Laboratory Tests Test 11/21/18 17:27 11/21/18 20:48 11/22/18 01:52 11/22/18 04:31 Bedside Glucose 112 181 146 Vancomycin Level 13.4 Trough Test 11/22/18 07:51 11/22/18 11:57 Bedside Glucose 102 150 Medications Medication Current Medications Vancomycin HCl (Vanco Iv Per Pharmacy) VANCOMYCIN PER PHARMACY PER PROTOCOL XX ; Start 11/12/18 at 22:00 Ascorbic Acid (Vitamin C) 500 mg DAILY PO Last administered on 11/22/18at 08:22; Admin Dose 500 MG; Start 11/13/18 at 09:00 Atorvastatin Calcium (Lipitor) 40 mg HS PO Last administered on 11/21/18at 21:12; Admin Dose 40 MG; Start 11/13/18 at 21:00 Carvedilol (Coreg) 12.5 mg BID PO Last administered on 11/22/18at 08:22; Admin Dose 12.5 MG; Start 11/12/18 at 22:00 IV Flush (NS 3 ml) 3 ml PER PROTOCOL IV ; Start 11/12/18 at 22:00 Ondansetron HCl (Zofran Inj) 4 mg Q6H PRN IV NAUSEA/VOMITING Last administered on 11/21/18at 09:58; Admin Dose 4 MG; Start 11/12/18 at 22:00 Acetaminophen (Tylenol Tab) 650 mg Q6H PRN PO .PAIN 1-3 OR TEMP; Start 11/12/18 at 22:00 Hydralazine HCl (Apresoline) 10 mg Q4H PRN IV ELEVATED BLOOD PRESSURE Last administered on 11/21/18 02:49; Admin Dose 10 MG; Start 11/13/18 at 00:00 Miscellaneous Information (Pending [facility] Order For Wound Care) This patient rodríguez... PRN PRN XX WOUND CARE; Start 11/13/18 at 06:30 Nystatin (Nystatin Powder) 1 applic BID TOP Last administered on 11/22/18 08:24; Admin Dose 1 APPLIC; Start 11/13/18 at 13:00 Insulin Glargine (Lantus) 12 units DAILY@2000 SC Last administered on 11/21/18 21:15; Admin Dose 12 UNITS; Start 11/13/18 at 20:00 Insulin Aspart (Novolog Insulin Pen) NOVOLOG *MILD* ALGORITHM WITH MEALS BEDTIME SC Last administered on 11/22/18 12:03; Admin Dose 1 UNIT; Start 11/14/18 at 08:00 Miscellaneous Information 1 ea NOTE XX ; Start 11/14/18 at 00:30 Glucose (Glutose) 15 gm Q15M PRN PO DECREASED GLUCOSE; Start 11/14/18 at 00:30 Glucose (Glutose) 22.5 gm Q15M PRN PO DECREASED GLUCOSE; Start 11/14/18 at 00:30 Dextrose (D50w Syringe) 25 ml Q15M PRN IV DECREASED GLUCOSE; Start 11/14/18 at 00:30 Dextrose (D50w Syringe) 50 ml Q15M PRN IV DECREASED GLUCOSE; Start 11/14/18 at 00:30 Glucagon (Glucagen) 1 mg Q15M PRN IM DECREASED GLUCOSE; Start 11/14/18 at 00:30 Glucose (Glutose) 15 gm Q15M PRN BUCCAL DECREASED GLUCOSE Last administered on 11/14/18at 08:14; Admin Dose 15 GM; Start 11/14/18 at 00:30 Bupropion HCl (Wellbutrin Sr) 150 mg BID PO Last administered on 11/22/18 08:22; Admin Dose 150 MG; Start 11/14/18 at 21:00 Polyethylene Glycol (Miralax) 17 gm BID PO Last administered on 11/22/18 08:21; Admin Dose 17 GM; Start 11/14/18 at 21:00 Sucralfate (Carafate) 1 gm AC MEALS AND BEDTIME PO Last administered on 11/22/18 12:03; Admin Dose 1 GM; Start 11/14/18 at 17:35 Zinc Sulfate (Zinc Sulfate) 220 mg DAILY PO Last administered on 11/22/18 08:23; Admin Dose 220 MG; Start 11/15/18 at 09:00 Sodium Biphosphate/ Sodium Phosphate (Fleet Enema) 133 ml DAILY PRN [place] CONSTIPATION Last administered on 11/22/18 15:00; Admin Dose 133 ML; Start 11/15/18 at 16:00 Bisacodyl (Dulcolax Supp) 10 mg Q48H PRN [place] CONSTIPATION Last administered on 11/19/18 15:23; Admin Dose 10 MG; Start 11/15/18 at 20:00 Enoxaparin Sodium (Lovenox) 40 mg DAILY SC Last administered on 11/22/18 08:23; Admin Dose 40 MG; Start 11/17/18 at 09:00 Aspirin (Halfprin) 81 mg DAILY PO Last administered on 11/22/18 08:23; Admin Dose 81 MG; Start 11/16/18 at 17:00 Clopidogrel Bisulfate (plaVIX) 75 mg DAILY PO Last administered on 11/22/18 08:21; Admin Dose 75 MG; Start 11/16/18 at 17:00 Lisinopril (Zestril) 40 mg DAILY PO Last administered on 11/22/18 08:23; Admin Dose 40 MG; Start 11/18/18 at 09:00 Vancomycin HCl 250 ml @ 125 mls/hr Q24H IVPB Last administered on 11/22/18 06:16; Admin Dose 125 MLS/HR; Start 11/18/18 at 05:30 Aztreonam 50 ml @ 100 mls/hr Q8 IVPB Last administered on 11/22/18 14:10; Admin Dose 100 MLS/HR; Start 11/18/18 at 10:00 Hydralazine HCl (Apresoline) 100 mg TID PO Last administered on 11/22/18 12:06; Admin Dose 100 MG; Start 11/18/18 at 21:00 Bisacodyl (Dulcolax) 10 mg DAILY PRN PO CONSTIPATION Last administered on 11/19/18 16:19; Admin Dose 10 MG; Start 11/19/18 at 14:30 Ibuprofen (Motrin) 200 mg Q6H PRN PO MILD PAIN(1-3) OR TEMP>38C; Start 11/22/18 at 12:30 HUNG HERNANDEZ MD Nov 22, 2018 15:57
[2018-11-22] MEDS ORDERED: METHYLNALTREXONE 12 MG/0.6 ML VIAL SC SCH (16:00)
[2018-11-22] MEDS: ATORVASTATIN 40 MG TAB PO SCH (20:07)
[2018-11-22] MEDS: INSULIN GLARGINE [LANTus] (100 UNITS/ML) SYG SC SCH (20:16)
[2018-11-22 20:30] VITALS: BP 171/77; PULSE 81; RESP 18
[2018-11-22 23:00] VITALS: BP 159/70; PULSE 80
[2018-11-23] VITALS (7 sets, daily range): BP systolic 139–196; BP diastolic 67–100; PULSE 78–90; RESP 17–20
[2018-11-23] MEDS ORDERED: NITROGLYCERIN (SL) 0.4 MG TAB ONE (01:48)
[2018-11-23] MEDS ORDERED: NITROGLYCERIN (SL) 0.4 MG TAB SL ONE (02:00)
[2018-11-23] MEDS: hydrALAzine 20 MG INJ IV PRN ×3 (02:02→20:15)
[2018-11-23] MEDS ORDERED: morphine 2 MG INJ IV ONE (02:30)
[2018-11-23] MEDS ORDERED: AMLODIPINE 5 MG TAB PO ONE (02:30)
[2018-11-23] MEDS ORDERED: AMLODIPINE 5 MG TAB ONE (02:44)
[2018-11-23] MEDS ORDERED: hydrALAzine 20 MG INJ IV ONE (04:00)
[2018-11-23] MEDS: VANCOMYCIN 1 GM 250 ML IVPB SCH (04:30)
[2018-11-23] MEDS: AZTREONAM 1 GM/NS (PMX) 50 ML IVPB SCH ×2 (06:38→14:51)
[2018-11-23] MEDS: INSULIN ASPART [NOVOLOG] 3 ML PEN SC SCH ×3 (08:00→17:30)
[2018-11-23] MEDS: POLYETHYLENE GLYCOL 17 GM PACKET PO SCH (08:41)
[2018-11-23] MEDS: CLOPIDOGREL 75 MG TAB PO SCH (08:41)
[2018-11-23] MEDS: ZINC SULFATE 220 MG CAP PO SCH (08:41)
[2018-11-23] MEDS: SUCRALFATE 1 GM TAB PO SCH ×3 (08:41→17:29)
[2018-11-23] MEDS: BUPROPION (SR) 150 MG TAB PO SCH (08:41)
[2018-11-23] MEDS: ASCORBIC ACID 500 MG TAB PO SCH (08:42)
[2018-11-23] MEDS: LISINOPRIL 20 MG TAB PO SCH (08:42)
[2018-11-23] MEDS: ASPIRIN (EC) 81 MG TAB PO SCH (08:42)
[2018-11-23] MEDS: NYSTATIN 30 GM POWDER BTL TOP SCH (08:43)
[2018-11-23] MEDS: ENOXAPARIN 40 MG/0.4 ML SYG SC SCH (08:47)
[2018-11-23] MEDS ORDERED: VORICONAZOLE 200 MG TAB PO SCH ×2 (14:00→21:00)
[2018-11-23] MEDS ORDERED: VORI200T12 PO (14:31)
--- NOTE | 2018-11-23 15:28 | CONS ---
Assessment/Plan Assessment/Plan Hospital Course (Demo Recall) No acute changes, awake, looks comfortable denies pain, no fevers overnight Microbiology: Left foot wound culture growing Pseudomonas and Hamida papulosis Antimicrobials: Voriconazole, Vanco, Azactam Physical examination: Well-developed middle-aged woman who is in no distress. Head atraumatic normocephalic sclera nonicteric. Neck is supple, chest rise symmetrical breath sounds clear. Heart: S1-S2 abdomen distended, obese, soft bowel sounds present. Extremities with bilateral edema, left foot dressing intact Assessment: 1. S/p sepsis with bacteremia on admission likely secondary to #3 2. Status post Pseudomonas and E. coli UTI 3. Left foot osteomyelitis==> Initial culture was positive for MRSA 4. Diabetes 5. Peripheral arterial disease 6. Acute kidney insufficiency 7. History of transaminitis secondary to daptomycin 8. Right upper extremity PICC line, present on admission Plan: Remains stable, continue abx for, wound care per podiatry rec-s, monitor renal f-n Consultation Date/Type/Reason Admit Date/Time Nov 12, 2018 at 20:14 Initial Consult Date Type of Consult id Date/Time of Note DATE: 11/23/18 TIME: 15:01 Exam/Review of Systems Exam Vitals Vital Signs Date Temp Pulse Resp B/P (MAP) Pulse Ox O2 O2 Flow FiO2 Time Delivery Rate 11/23/18 164/84 14:58 (110) 11/23/18 98.0 78 18 97 Room Air 14:17 Intake and Output 11/22/18 11/22/18 11/23/18 1515:00 23:00 07:00 IntakeIntake Total 300 ml 1200 ml 620 ml BalanceBalance 300 ml 1200 ml 620 ml Results Result Diagram: 11/23/18 0218 11/23/18 0839 Results 24hrs Laboratory Tests Test 11/22/18 16:50 11/22/18 20:12 11/23/18 02:18 11/23/18 02:47 Bedside Glucose 180 252 H 183 White Blood Count 6.6 Red Blood Count 3.39 L Hemoglobin 9.3 L Hematocrit 29.4 L Mean Corpuscular 86.7 Volume Mean Corpuscular 27.4 L Hemoglobin Mean Corpuscular 31.6 L Hemoglobin Concent Red Cell 13.6 Distribution Width Platelet Count 226 Mean Platelet Volume 10.9 H Immature 0.200 Granulocytes % Neutrophils % 74.6 Lymphocytes % 16.8 Monocytes % 6.4 Eosinophils % 1.7 Basophils % 0.3 Nucleated Red Blood 0.0 Cells % Immature 0.010 Granulocytes # Neutrophils # 4.9 Lymphocytes # 1.1 Monocytes # 0.4 Eosinophils # 0.1 Basophils # 0.0 Nucleated Red Blood 0.0 Cells # Sodium Level 140 Potassium Level 4.6 Chloride Level 105 Carbon Dioxide Level 30 Anion Gap 5 Blood Urea Nitrogen 28 H Creatinine 1.07 H Est Glomerular 53 L Filtrat Rate mL/min Glucose Level 190 Calcium Level 8.5 Total Bilirubin 0.0 L Direct Bilirubin 0.00 Indirect Bilirubin 0.0 Aspartate Amino 23 Transf (AST/SGOT) Alanine 27 Aminotransferase (AL T/SGPT) Alkaline Phosphatase 196 H Creatine Kinase 40 Creatine Kinase 2.7 Index Creatinine Kinase MB 1.08 (Mass) Troponin I < 0.012 Total Protein 5.4 L Albumin 2.6 L Globulin 2.80 Albumin/Globulin 0.92 Ratio Test 11/23/18 08:06 11/23/18 08:39 11/23/18 11:59 Bedside Glucose 105 165 Blood Urea Nitrogen 28 H Creatinine 1.01 H Creatine Kinase 36 Creatine Kinase 3.4 Index Creatinine Kinase MB 1.21 (Mass) Troponin I < 0.012 Medications Medication Current Medications Vancomycin HCl (Vanco Iv Per Pharmacy) VANCOMYCIN PER PHARMACY PER PROTOCOL XX ; Start 11/12/18 at 22:00 Ascorbic Acid (Vitamin C) 500 mg DAILY PO Last administered on 11/23/18at 08:42; Admin Dose 500 MG; Start 11/13/18 at 09:00 Atorvastatin Calcium (Lipitor) 40 mg HS PO Last administered on 11/22/18at 20:07; Admin Dose 40 MG; Start 11/13/18 at 21:00 Carvedilol (Coreg) 12.5 mg BID PO Last administered on 11/23/18at 08:43; Admin Dose 12.5 MG; Start 11/12/18 at 22:00 IV Flush (NS 3 ml) 3 ml PER PROTOCOL IV ; Start 11/12/18 at 22:00 Ondansetron HCl (Zofran Inj) 4 mg Q6H PRN IV NAUSEA/VOMITING Last administered on 11/21/18at 09:58; Admin Dose 4 MG; Start 11/12/18 at 22:00 Acetaminophen (Tylenol Tab) 650 mg Q6H PRN PO .PAIN 1-3 OR TEMP; Start 11/12/18 at 22:00 Miscellaneous Information (Pending [facility] Order For Wound Care) This patient rodríguez... PRN PRN XX WOUND CARE; Start 11/13/18 at 06:30 Nystatin (Nystatin Powder) 1 applic BID TOP Last administered on 11/23/18 08:43; Admin Dose 1 APPLIC; Start 11/13/18 at 13:00 Insulin Glargine (Lantus) 12 units DAILY@2000 SC Last administered on 11/22/18 20:16; Admin Dose 12 UNITS; Start 11/13/18 at 20:00 Insulin Aspart (Novolog Insulin Pen) NOVOLOG *MILD* ALGORITHM WITH MEALS BEDTIME SC Last administered on 11/23/18 12:05; Admin Dose 1 UNIT; Start 11/14/18 at 08:00 Miscellaneous Information 1 ea NOTE XX ; Start 11/14/18 at 00:30 Glucose (Glutose) 15 gm Q15M PRN PO DECREASED GLUCOSE; Start 11/14/18 at 00:30 Glucose (Glutose) 22.5 gm Q15M PRN PO DECREASED GLUCOSE; Start 11/14/18 at 00:30 Dextrose (D50w Syringe) 25 ml Q15M PRN IV DECREASED GLUCOSE; Start 11/14/18 at 00:30 Dextrose (D50w Syringe) 50 ml Q15M PRN IV DECREASED GLUCOSE; Start 11/14/18 at 00:30 Glucagon (Glucagen) 1 mg Q15M PRN IM DECREASED GLUCOSE; Start 11/14/18 at 00:30 Glucose (Glutose) 15 gm Q15M PRN BUCCAL DECREASED GLUCOSE Last administered on 11/14/18 08:14; Admin Dose 15 GM; Start 11/14/18 at 00:30 Bupropion HCl (Wellbutrin Sr) 150 mg BID PO Last administered on 11/23/18 08:41; Admin Dose 150 MG; Start 11/14/18 at 21:00 Polyethylene Glycol (Miralax) 17 gm BID PO Last administered on 11/23/18 08:41; Admin Dose 17 GM; Start 11/14/18 at 21:00 Sucralfate (Carafate) 1 gm AC MEALS AND BEDTIME PO Last administered on 11/23/18 12:05; Admin Dose 1 GM; Start 11/14/18 at 17:35 Zinc Sulfate (Zinc Sulfate) 220 mg DAILY PO Last administered on 11/23/18 08:41; Admin Dose 220 MG; Start 11/15/18 at 09:00 Sodium Biphosphate/ Sodium Phosphate (Fleet Enema) 133 ml DAILY PRN [place] CONSTIPATION Last administered on 11/22/18 15:00; Admin Dose 133 ML; Start 11/15/18 at 16:00 Bisacodyl (Dulcolax Supp) 10 mg Q48H PRN [place] CONSTIPATION Last administered on 11/19/18 15:23; Admin Dose 10 MG; Start 11/15/18 at 20:00 Enoxaparin Sodium (Lovenox) 40 mg DAILY SC Last administered on 11/23/18 08:47; Admin Dose 40 MG; Start 11/17/18 at 09:00 Aspirin (Halfprin) 81 mg DAILY PO Last administered on 11/23/18 08:42; Admin Dose 81 MG; Start 11/16/18 at 17:00 Clopidogrel Bisulfate (plaVIX) 75 mg DAILY PO Last administered on 11/23/18 08:41; Admin Dose 75 MG; Start 11/16/18 at 17:00 Lisinopril (Zestril) 40 mg DAILY PO Last administered on 11/23/18 08:42; Admin Dose 40 MG; Start 11/18/18 at 09:00 Vancomycin HCl 250 ml @ 125 mls/hr Q24H IVPB Last administered on 11/23/18 04:30; Admin Dose 125 MLS/HR; Start 11/18/18 at 05:30 Aztreonam 50 ml @ 100 mls/hr Q8 IVPB Last administered on 11/23/18 14:51; Admin Dose 100 MLS/HR; Start 11/18/18 at 10:00 Hydralazine HCl (Apresoline) 100 mg TID PO Last administered on 11/23/18 12:08; Admin Dose 100 MG; Start 11/18/18 at 21:00 Bisacodyl (Dulcolax) 10 mg DAILY PRN PO CONSTIPATION Last administered on 11/19/18 16:19; Admin Dose 10 MG; Start 11/19/18 at 14:30 Ibuprofen (Motrin) 200 mg Q6H PRN PO MILD PAIN(1-3) OR TEMP>38C; Start 11/22/18 at 12:30 Methylnaltrexone Jackson (Relistor) 6 mg Q48H SC Last administered on 11/22/18at 16:20; Admin Dose 6 MG; Start 11/22/18 at 16:00 Hydralazine HCl (Apresoline) 10 mg Q6 PRN IV ELEVATED BLOOD PRESSURE; Start 11/23/18 at 02:30 Voriconazole (Vfend) 200 mg BID PO Last administered on 11/23/18at 14:51; Admin Dose 200 MG; Start 11/23/18 at 14:00 KAYODE WESLEY NP Nov 23, 2018 15:11
--- NOTE | 2018-11-23 17:37 | DS ---
Date/Time of Note Date/Time of Note DATE: 11/23/18 TIME: 17:33 Discharge Summary Admission/Discharge Info Admit Date/Time Nov 12, 2018 at 20:14 Discharge Date/Time November 23, 2018 Discharge Diagnosis # Chronic osteomyelitis -left foot/lower extremity -again status post surgical debridemen -Continue IV antibiotic x 4-6 weeks per ID -DC to detention for IV antibiotics # Nausea-resolved # Dyslipidemia -Resume home meds # Peripheral arterial disease -Continue home meds including aspirin and Plavix # Hypertension -presently stable -Continue home meds # Diabetes mellitus -current A1c was 6.1. Sugars appear stable -Continue home insulin regimen Patient Condition: Good Hospital Course Patient is a 53-year-old female with a past medical history of hypertension, hyperlipidemia, CHF, diabetes, COPD, chronic osteomyelitis with left lower extremity diabetic ulcers requiring previous debridement, presenting from the wound care clinic for evaluation of the wounds. Patient was seen by ID and noted to have chronic osteomyelitis of the left foot, patient is status post debridement with podiatry, ID recommendations was to continue antibiotics for 4- 6 weeks, renal case manager did arrange for placement in a long-term facility. On the day of discharge patient's vitals, labs and physical exam are stable. Home Meds Active Scripts Voriconazole* (Vfend*) 200 Mg Tablet, 200 MG PO BID for 14 Days, TAB Prov:HERNANDEZ VILLA 11/23/18 Bupropion Hcl (Bupropion Hcl SR) 150 Mg Tablet.sa, 150 MG PO BID for 11 Days Prov:ERNESTINE KELLOGG MD 10/27/18 Carvedilol* (Carvedilol*) 12.5 Mg Tablet, 12.5 MG PO BID for 14 Days, TAB Prov:ERNESTINE KELLOGG MD 10/27/18 Lisinopril* (Lisinopril*) 20 Mg Tablet, 20 MG PO DAILY for 11 Days, TAB Prov:ERNESTINE KELLOGG MD 10/27/18 Montelukast Sodium* (Montelukast Sodium*) 10 Mg Tablet, 10 MG PO HS for 30 Days, #30 TAB 6 Refills Prov:ERNESTINE KELLOGG MD 10/27/18 Aspirin (Aspirin) 81 Mg Chew, 81 MG PO DAILY for 30 Days, #30 TAB 6 Refills Prov:SANCHEZ ANDERSON MD 08/26/18 Hydralazine Hcl* (Apresoline*) 50 Mg Tab, 75 MG PO TID for 30 Days, #90 TAB 6 Refills Prov:SANCHEZ ANDERSON MD 08/26/18 Atorvastatin* (Atorvastatin*) 40 Mg Tablet, 40 MG PO HS for 30 Days, #30 TAB 6 Refills Prov:SANCHEZ ANDERSON MD 08/26/18 Clopidogrel Bisulfate (Clopidogrel) 75 Mg Tablet, 75 MG PO DAILY for 30 Days, #30 TAB 6 Refills Prov:SANCHEZ ANDERSON MD 08/26/18 Reported Medications Insulin Glargine* (Lantus*) 100 Unit/Ml Soln, 24 UNIT SC QHS, #1 VIAL 11/12/18 Insulin Aspart* (Novolog Insulin Pen*) 100 Unit/Ml Soln, 8 UNIT SC WITH MEALS, EA 11/12/18 Multivitamin with Minerals (Multivitamins with Minerals) 1 Each Tablet, 1 EACH PO DAILY, TAB 11/12/18 Enoxaparin Sodium* (Lovenox*) 40 Mg/0.4 Ml Syringe, 40 MG SC DAILY, SYR 11/12/18 Amino Acids/Protein Hydrolys (PRO-STAT LIQUID) 30 Ml Liquid.pkt, 30 ML PO DAILY for SUGAR FREE 11/12/18 Ondansetron Hcl* (Zofran*) 4 Mg Tablet, 4 MG PO Q6H PRN for NAUSEA AND OR VOMITING, TAB 11/12/18 Polyethylene Glycol* (Miralax*) 17 Gm Powd.pack, 17 GM PO BID, #60 PACKET 11/12/18 Ascorbic Acid (Vitamin C) 500 Mg Tab, 500 MG PO DAILY, TAB 11/12/18 Zinc Sulfate* (Zinc Sulfate*) 220 Mg Cap, 220 MG PO DAILY, CAP 11/12/18 Sucralfate* (Carafate*) 1 Gm Tab, 1 GM PO AC MEALS AND BEDTIME, TAB 11/12/18 Famotidine* (Pepcid*) 20 Mg Tablet, 20 MG PO DAILY, #30 TAB 11/12/18 Amlodipine Besylate* (Amlodipine Besylate*) 10 Mg Tablet, 10 MG PO DAILY, #30 TAB 10/05/18 Discontinued Reported Medications Levofloxacin* (Levofloxacin*) 250 Mg Tablet, 250 MG PO DAILY for END DATE 11/20/18, TAB 11/12/18 Follow-up Plan Follow-up with physicians at the long-term facility Primary Care Provider [facility] Time spent on discharge: > 30 minutes HERNANDEZ VILLA Nov 23, 2018 17:36
--- NOTE | 2018-11-24 07:54 | CONS ---
DATE OF ADMISSION: 11/12/2018 DATE OF CONSULTATION: 11/23/2018 SUBJECTIVE FINDINGS: The patient is being followed for multiple wounds on the left foot, history of chronic osteomyelitis and most recently had endovascular intervention. The patient denies any fever, nausea, vomiting. She is anxious and wants to go home. The patient is recommended a total of 6 wee ks of IV antibiotics. OBJECTIVE FINDINGS: VITAL SIGNS: Temperature is 98, pulse is 70, respiratory rate 18, blood pressure 160/72, pulse oxime try is 97% on room air. GENERAL: The patient is alert, oriented, in no acute distress. EXTREMITIES: Foot is wrapped. No malodor. Mild serous drainage. Mild edema. Extremities are warm . Grafts are present with skin sutures. Left dorsal foot ulceration is 7 x 9 cm, left posterior vicky l is 4 x 5 cm and lateral 5th digit of the left foot with a skin allograft present. Buried pins are present and intact without loosening. Absent protective sensation. LABORATORIES: WBC 6.6, hemoglobin 9.3, hematocrit 29.4, platelets 226. ASSESSMENT: 1. Left foot chronic osteomyelitis. 2. Left foot diabetic foot ulceration. 3. Charcot neuro-osteoarthropathy. 4. Peripheral arterial disease. 5. Diabetes type 2 with peripheral neuropathy. PLAN: The patient was seen. Continue daily dressing changes with wet-to-dry saline gauze and Kerlix . Continue using Prevalon boots for pressure relief and continue anti-glycemic control while in-hous e. The patient will need continuation of antibiotics for treatment of chronic osteomyelitis for misbah tional 5 to 6 weeks. Dictated By: MOON PARTIDA/KELLY Conf#: [id number] DID#: [id number] CC: DIGNA ANDRADE MD;*EndCC*
== END 2018-11-23 20:40 | DRG 623 ==
LOC: E/R 12:14 → PP2 20:14 → CANRESERV 23:11 → PP2 11-13 00:42
PROVIDERS: ADMIT Internal Medicine; ATTEND Internal Medicine
PROC: 0HXNXZZ Transfer Left Foot Skin, External Approach (ICD-10-PCS; 2018-11-13)
PROC: 0HRNXK3 Replacement of Left Foot Skin with Nonautologous Tissue Substitute, Full Thickness, External Approach (ICD-10-PCS; 2018-11-13)
PROC: 0HRNXK3 Replacement of Left Foot Skin with Nonautologous Tissue Substitute, Full Thickness, External Approach (ICD-10-PCS; 2018-11-13)
PROC: 0MBT0ZZ Excision of Left Foot Bursa and Ligament, Open Approach (ICD-10-PCS; 2018-11-13)
PROC: 0HXNXZZ Transfer Left Foot Skin, External Approach (ICD-10-PCS; 2018-11-13)
PROC: 0QBP0ZX Excision of Left Metatarsal, Open Approach, Diagnostic (ICD-10-PCS; 2018-11-13)
PROC: 0QBP0ZZ Excision of Left Metatarsal, Open Approach (ICD-10-PCS; principal; 2018-11-13 16:30)
DX: E11.69 Type 2 diabetes mellitus with other specified complication (principal); M86.672 Other chronic osteomyelitis, left ankle and foot; L97.426 Non-pressure chronic ulcer of left heel and midfoot with bone involvement without evidence of necrosis; E11.621 Type 2 diabetes mellitus with foot ulcer; E11.610 Type 2 diabetes mellitus with diabetic neuropathic arthropathy; E11.42 Type 2 diabetes mellitus with diabetic polyneuropathy; E11.51 Type 2 diabetes mellitus with diabetic peripheral angiopathy without gangrene; I11.0 Hypertensive heart disease with heart failure; I50.9 Heart failure, unspecified; E78.5 Hyperlipidemia, unspecified; D63.8 Anemia in other chronic diseases classified elsewhere; D50.9 Iron deficiency anemia, unspecified; J44.9 Chronic obstructive pulmonary disease, unspecified; N28.9 Disorder of kidney and ureter, unspecified; R11.0 Nausea; Z98.62 Peripheral vascular angioplasty status; Z79.02 Long term (current) use of antithrombotics/antiplatelets; Z79.82 Long term (current) use of aspirin; Z79.4 Long term (current) use of insulin
CPT/HCPCS: 36415; 71045; 73630; 80048; 80053; 80202; 81001; 82550; 82553; 82565; 82962; 83036; 83690; 83735; 84100; 84484; 84520; 85025; 85651; 86140; 87070; 87075; 87081; 87102; 87116; 88304; 88311; 93005; 96374; 97110; 97162; 97530; C9113; J0360; J0692; J1650; J1815; J2250; J2270; J2405; J2795; J3370; J7030; J7040; J7050; Q4104

== ENCOUNTER 2018-12-31 11:54 | Emergency (ER) | payer OTHER ==
[~2018-12-31] VITALS: Ht 152.4 cm; Wt 59.0 kg
[~2018-12-31 11:54] MED LIST changes: +AMIN30LI PO; +ASC500 PO; -ENOX30DI2 SC; +ENOX40DI14 SC; +FAMO-96 PO; +LANT3I SC; +MULT-105 PO; -NEED-135 MC; +NOVO3I SC; +ONDA4TAB8 PO; +POLY17PO6 PO; +SUCR1TAB56 PO; -TRAM50TA2 PO; +VORI200T12 PO; +ZINC220C5 PO
[2018-12-31 12:06] VITALS: Ht 152.4 cm; Wt 59.0 kg
[2018-12-31] MEDS ORDERED: ONDANSETRON 4 MG INJ IV STA (12:30)
[2018-12-31] MEDS ORDERED: SOD CHLORIDE 0.9% 1,000 ML IV STA (12:30)
[2018-12-31] MEDS ORDERED: POTASSIUM CHLORIDE (SR) 20 MEQ TAB PO STA (13:39)
[2018-12-31] MEDS ORDERED: POTASSIUM CHLORIDE 50 ML IVPB ONE (14:00)
[2018-12-31] MEDS ORDERED: ONDA4TAB14 PO (14:05)
--- NOTE | 2018-12-31 14:07 | ERD ---
ER Documentation Chief Complaint Chief Complaint From [facility] for vomiting, dysuria for 5 days HPI Patient is a 53-year-old female with hypertension, diabetes, and osteomyelitis who presents with nausea and vomiting. The patient was sent from the [facility] as she was complaining of persistent nausea and vomiting over the past 2 weeks. The patient has no fevers. She had diarrhea initially which has stopped. She had some pain with urination. She is currently receiving antibiotics through a PICC line. Upon review of old medical records the patient has multiple visits to the ER for various complaints. Review of the emergency department information exchange system shows visits to 3 separate emergency departments. She does not remember the name of her primary doctor. ROS All systems reviewed and are negative except as per history of present illness. Medications Home Meds Active Scripts Ondansetron (Ondansetron Odt) 4 Mg Tab.rapdis, 4 MG PO Q6H PRN for NAUSEA AND/OR VOMITING, #10 TAB Prov:ESTHER PERKINS MD 12/31/18 Voriconazole* (Vfend*) 200 Mg Tablet, 200 MG PO BID for 14 Days, TAB Prov:HERNANDEZ VILLA 11/23/18 Bupropion Hcl (Bupropion Hcl SR) 150 Mg Tablet.sa, 150 MG PO BID for 11 Days Prov:ERNESTINE KELLOGG MD 10/27/18 Carvedilol* (Carvedilol*) 12.5 Mg Tablet, 12.5 MG PO BID for 14 Days, TAB Prov:ERNESTINE KELLOGG MD 10/27/18 Lisinopril* (Lisinopril*) 20 Mg Tablet, 20 MG PO DAILY for 11 Days, TAB Prov:ERNESTINE KELLOGG MD 10/27/18 Montelukast Sodium* (Montelukast Sodium*) 10 Mg Tablet, 10 MG PO HS for 30 Days, #30 TAB 6 Refills Prov:ERNESTINE KELLOGG MD 10/27/18 Aspirin (Aspirin) 81 Mg Chew, 81 MG PO DAILY for 30 Days, #30 TAB 6 Refills Prov:SANCHEZ ANDERSON MD 08/26/18 Hydralazine Hcl* (Apresoline*) 50 Mg Tab, 75 MG PO TID for 30 Days, #90 TAB 6 Refills Prov:SANCHEZ ANDERSON MD 08/26/18 Atorvastatin* (Atorvastatin*) 40 Mg Tablet, 40 MG PO HS for 30 Days, #30 TAB 6 Refills Prov:SANCHEZ ANDERSON MD 08/26/18 Clopidogrel Bisulfate (Clopidogrel) 75 Mg Tablet, 75 MG PO DAILY for 30 Days, #30 TAB 6 Refills Prov:SANCHEZ ANDERSON MD 08/26/18 Reported Medications Insulin Glargine* (Lantus*) 100 Unit/Ml Soln, 24 UNIT SC QHS, #1 VIAL 11/12/18 Insulin Aspart* (Novolog Insulin Pen*) 100 Unit/Ml Soln, 8 UNIT SC WITH MEALS, EA 11/12/18 Multivitamin with Minerals (Multivitamins with Minerals) 1 Each Tablet, 1 EACH PO DAILY, TAB 11/12/18 Enoxaparin Sodium* (Lovenox*) 40 Mg/0.4 Ml Syringe, 40 MG SC DAILY, SYR 11/12/18 Amino Acids/Protein Hydrolys (PRO-STAT LIQUID) 30 Ml Liquid.pkt, 30 ML PO DAILY for SUGAR FREE 11/12/18 Ondansetron Hcl* (Zofran*) 4 Mg Tablet, 4 MG PO Q6H PRN for NAUSEA AND OR VOMITING, TAB 11/12/18 Polyethylene Glycol* (Miralax*) 17 Gm Powd.pack, 17 GM PO BID, #60 PACKET 11/12/18 Ascorbic Acid (Vitamin C) 500 Mg Tab, 500 MG PO DAILY, TAB 11/12/18 Zinc Sulfate* (Zinc Sulfate*) 220 Mg Cap, 220 MG PO DAILY, CAP 11/12/18 Sucralfate* (Carafate*) 1 Gm Tab, 1 GM PO AC MEALS AND BEDTIME, TAB 11/12/18 Famotidine* (Pepcid*) 20 Mg Tablet, 20 MG PO DAILY, #30 TAB 11/12/18 Amlodipine Besylate* (Amlodipine Besylate*) 10 Mg Tablet, 10 MG PO DAILY, #30 TAB 10/05/18 Allergies Allergies: Coded Allergies: No Known Allergies (Verified Allergy, Mild, 11/12/18) PMhx/Soc Anesthesia Reaction: No (unknown) Hx Neurological Disorder: No Hx Respiratory Disorders: Yes (copd) Hx Cardiac Disorders: Yes (htn, hyperlipidemia,chf,) Hx Psychiatric Problems: No Hx Miscellaneous Medical Probl: No Hx Alcohol Use: No (unknown) Hx Substance Use: No Hx Tobacco Use: No (unknown) Smoking Status: Never smoker FmHx Family History: No diabetes Physical Exam Vitals Vital Signs Date Temp Pulse Resp B/P (MAP) Pulse Ox O2 O2 Flow FiO2 Time Delivery Rate 12/31/18 97.9 77 20 170/92 96 12:06 (118) Physical Exam Const: No acute distress Head: Atraumatic Eyes: Normal Conjunctiva ENT: Normal External Ears, Nose and Mouth. Dry mucous membranes Neck: Full range of motion. No meningismus. Resp: Clear to auscultation bilaterally Cardio: Regular rate and rhythm, no murmurs Abd: Soft, non tender, non distended. Normal bowel sounds Skin: Bandage on the foot Back: No midline or flank tenderness Ext: No cyanosis, or edema Neur: Awake and alert Psych: Normal Mood and Affect Result Diagram: 12/31/18 1256 12/31/18 1256 Results 24 hrs Laboratory Tests Test 12/31/18 12:56 White Blood Count 6.2 10^3/ul Red Blood Count 4.22 10^6/ul Hemoglobin 11.4 g/dl Hematocrit 35.3 % Mean Corpuscular Volume 83.6 fl Mean Corpuscular Hemoglobin 27.0 pg Mean Corpuscular Hemoglobin Concent 32.3 g/dl Red Cell Distribution Width 13.4 % Platelet Count 191 10^3/UL Mean Platelet Volume 11.0 fl Immature Granulocytes % 0.500 % Neutrophils % 74.9 % Lymphocytes % 15.1 % Monocytes % 8.2 % Eosinophils % 0.8 % Basophils % 0.5 % Nucleated Red Blood Cells % 0.0 /100WBC Immature Granulocytes # 0.030 10^3/ul Neutrophils # 4.7 10^3/ul Lymphocytes # 0.9 10^3/ul Monocytes # 0.5 10^3/ul Eosinophils # 0.1 10^3/ul Basophils # 0.0 10^3/ul Nucleated Red Blood Cells # 0.0 10^3/ul Sodium Level 141 mmol/L Potassium Level 2.6 mmol/L Chloride Level 100 mmol/L Carbon Dioxide Level 32 mmol/L Anion Gap 9 Blood Urea Nitrogen 16 mg/dl Creatinine 1.55 mg/dl Est Glomerular Filtrat Rate mL/min 35 mL/min Glucose Level 90 mg/dl Calcium Level 8.7 mg/dl Total Bilirubin 0.4 mg/dl Direct Bilirubin 0.00 mg/dl Indirect Bilirubin 0.4 mg/dl Aspartate Amino Transf (AST/SGOT) 19 IU/L Alanine Aminotransferase (ALT/SGPT) 12 IU/L Alkaline Phosphatase 137 IU/L Troponin I 0.035 ng/ml Total Protein 6.7 g/dl Albumin 3.3 g/dl Globulin 3.40 g/dl Albumin/Globulin Ratio 0.97 Lipase 12 U/L Current Medications Medications Dose Sig/Kofi Start Time Status Last (Trade) Ordered Route PRN Stop Time Admin Dose Reason Admin Sodium 1,000 ml @ Q1H STAT 12/31/18 DC 12/31/18 Chloride 1,000 mls/hr IV 12:30 12/31/18 13:16 13:29 Ondansetron 4 mg ONCE STAT 12/31/18 DC 12/31/18 HCl (Zofran IV 12:30 12/31/18 13:16 Inj) 12:32 Potassium 40 meq ONCE STAT 12/31/18 DC 12/31/18 Chloride PO 13:39 12/31/18 14:02 (Klor-Con 20) 13:47 Potassium 50 ml @ 25 ONCE ONCE 12/31/18 12/31/18 Chloride mls/hr IVPB 14:00 12/31/18 14:02 15:59 Procedures/MDM EKG read by me: Rate/Rhythm: Regular rate and rhythm at a rate of 75 Intervals: Normal Impression: No evidence of ischemia or arrhythmia Patient is a 53-year-old female who presents with nausea and vomiting. She was found to have hypokalemia with a potassium of 2.6. This is likely from nausea and vomiting. She was given potassium both IV and by mouth. I do not believe she requires admission to the hospital at this time. EKG shows no signs of arr hythmia. The patient will need to follow-up closely with her primary doctor within 24-48 hours. The patient can return sooner for any worsening symptoms. Departure Diagnosis: Primary Impression: Hypokalemia Additional Impression: Vomiting Vomiting type: unspecified Vomiting Intractability: non-intractable Nausea presence: with nausea Qualified Codes: R11.2 - Nausea with vomiting, unspecified Condition: Fair Patient Instructions: Hypokalemia, Vomiting (6Y-Adult) Additional Instructions: Llame al doctor ESA y barbara sarah PATRICIA PARA DENTRO DE 1-2 WERNER.Dgale a la secretaria que nosotros le instruimos hacer esta patricia.Avise o llame si velez condicin se empeora antes de la patricia. Regresa aqui si peor o no mejor. ESTHER PERKINS MD Dec 31, 2018 14:07
[2018-12-31 16:19] VITALS: BP 190/97; PULSE 86; RESP 18
== END 2018-12-31 16:29 | disposition home or self-care (01) ==
LOC: E/R 11:54
DX: E87.6 Hypokalemia (principal); I11.0 Hypertensive heart disease with heart failure; I50.9 Heart failure, unspecified; J44.9 Chronic obstructive pulmonary disease, unspecified; E11.9 Type 2 diabetes mellitus without complications; Z79.82 Long term (current) use of aspirin; Z79.4 Long term (current) use of insulin; Z79.01 Long term (current) use of anticoagulants
CPT/HCPCS: 36415; 80053; 83690; 84484; 85025; 96374; 96375; J2405; J3480; J7030; Z7502; Z7610

== ENCOUNTER 2019-01-07 19:01 | Inpatient (IN) | payer OTHER ==
[~2019-01-07] VITALS: Ht 165.1 cm; Wt 59.8 kg
[~2019-01-07 19:01] MED LIST changes: +ONDA4TAB14 PO
[2019-01-07] MEDS ORDERED: SOD CHLORIDE 0.9% 1,000 ML IV STA (19:33)
[2019-01-07] MEDS ORDERED: VANCOMYCIN 1 GM (PMX) 250 ML IVPB STA (20:42)
[2019-01-07] MEDS ORDERED: PIPER-TAZO 3.375 GM IV (PMX) 100 ML IVPB STA (20:42)
[2019-01-07] MEDS ORDERED: CLINDAMYCIN 900 MG/D5W (PMX) 50 ML IVPB STA (20:42)
[2019-01-07] MEDS ORDERED: INSULIN LISPRO 100 UNIT/ML VIAL SC ONE (21:00)
--- NOTE | 2019-01-07 21:44 | ERD ---
ER Documentation Chief Complaint Chief Complaint wound to bilateral heel right getting worse than left. no fevers. more pain HPI During the patient's encounter translation services were utilized Language: Sami Source: In person 53-year-old diabetic female presents to the emergency room for draining wound to the left lateral foot. The patient is not changing her dressing. She is having diarrhea and the dressing is soaked in diarrhea. Patient denies any fevers or chills but does note increased malodorous discharge from the lateral aspect of the left foot. Patient also states that she is not taking diabetes medications because "my doctor has not given them to me ". Remainder of HPI is somewhat limited. ROS All systems reviewed and are negative except as per history of present illness. Medications Home Meds Active Scripts Ondansetron (Ondansetron Odt) 4 Mg Tab.rapdis, 4 MG PO Q6H PRN for NAUSEA AND/OR VOMITING, #10 TAB Prov:ESTHER PERKINS MD 12/31/18 Voriconazole* (Vfend*) 200 Mg Tablet, 200 MG PO BID for 14 Days, TAB Prov:HERNANDEZ VILLA 11/23/18 Bupropion Hcl (Bupropion Hcl SR) 150 Mg Tablet.sa, 150 MG PO BID for 11 Days Prov:ERNESTINE KELLOGG MD 10/27/18 Carvedilol* (Carvedilol*) 12.5 Mg Tablet, 12.5 MG PO BID for 14 Days, TAB Prov:ERNESTINE KELLOGG MD 10/27/18 Lisinopril* (Lisinopril*) 20 Mg Tablet, 20 MG PO DAILY for 11 Days, TAB Prov:ERNESTINE KELLOGG MD 10/27/18 Montelukast Sodium* (Montelukast Sodium*) 10 Mg Tablet, 10 MG PO HS for 30 Days, #30 TAB 6 Refills Prov:ERNESTINE KELLOGG MD 10/27/18 Aspirin (Aspirin) 81 Mg Chew, 81 MG PO DAILY for 30 Days, #30 TAB 6 Refills Prov:SANCHEZ ANDERSON MD 08/26/18 Hydralazine Hcl* (Apresoline*) 50 Mg Tab, 75 MG PO TID for 30 Days, #90 TAB 6 Refills Prov:SANCHEZ ANDERSON MD 08/26/18 Atorvastatin* (Atorvastatin*) 40 Mg Tablet, 40 MG PO HS for 30 Days, #30 TAB 6 Refills Prov:SANCHEZ ANDERSON MD 08/26/18 Clopidogrel Bisulfate (Clopidogrel) 75 Mg Tablet, 75 MG PO DAILY for 30 Days, #30 TAB 6 Refills Prov:SANCHEZ ANDERSON MD 08/26/18 Reported Medications Insulin Glargine* (Lantus*) 100 Unit/Ml Soln, 24 UNIT SC QHS, #1 VIAL 11/12/18 Insulin Aspart* (Novolog Insulin Pen*) 100 Unit/Ml Soln, 8 UNIT SC WITH MEALS, EA 11/12/18 Multivitamin with Minerals (Multivitamins with Minerals) 1 Each Tablet, 1 EACH PO DAILY, TAB 11/12/18 Enoxaparin Sodium* (Lovenox*) 40 Mg/0.4 Ml Syringe, 40 MG SC DAILY, SYR 11/12/18 Amino Acids/Protein Hydrolys (PRO-STAT LIQUID) 30 Ml Liquid.pkt, 30 ML PO DAILY for SUGAR FREE 11/12/18 Ondansetron Hcl* (Zofran*) 4 Mg Tablet, 4 MG PO Q6H PRN for NAUSEA AND OR VOMITING, TAB 11/12/18 Polyethylene Glycol* (Miralax*) 17 Gm Powd.pack, 17 GM PO BID, #60 PACKET 11/12/18 Ascorbic Acid (Vitamin C) 500 Mg Tab, 500 MG PO DAILY, TAB 11/12/18 Zinc Sulfate* (Zinc Sulfate*) 220 Mg Cap, 220 MG PO DAILY, CAP 11/12/18 Sucralfate* (Carafate*) 1 Gm Tab, 1 GM PO AC MEALS AND BEDTIME, TAB 11/12/18 Famotidine* (Pepcid*) 20 Mg Tablet, 20 MG PO DAILY, #30 TAB 11/12/18 Amlodipine Besylate* (Amlodipine Besylate*) 10 Mg Tablet, 10 MG PO DAILY, #30 TAB 10/05/18 Allergies Allergies: Coded Allergies: No Known Allergies (Verified Allergy, Mild, 11/12/18) PMhx/Soc History of Surgery: Yes (Left foot wound debridement, left thigh skin graft) Anesthesia Reaction: No Hx Neurological Disorder: No Hx Respiratory Disorders: Yes (COPD) Hx Cardiac Disorders: Yes (HTN, hyperlipidemia, CHF) Hx Psychiatric Problems: No Hx Miscellaneous Medical Probl: Yes (DM) Hx Alcohol Use: No Hx Substance Use: No Hx Tobacco Use: No (unknown) Smoking Status: Never smoker FmHx Family History: No diabetes Physical Exam Vitals Vital Signs Date Temp Pulse Resp B/P (MAP) Pulse Ox O2 O2 Flow FiO2 Time Delivery Rate 01/07/19 98.8 101 16 154/66 100 Room Air 21:00 (95) 01/07/19 98.8 99 14 173/82 100 Room Air 20:00 (112) 01/07/19 98.8 101 18 165/78 99 19:06 (107) Physical Exam General: Cachectic elderly female Head: Normocephalic, atraumatic. Eyes: Pupils equally reactive, EOM intact ENT: Moist mucous membranes Neck: Supple, no lymphadenopathy Respiratory: Lungs clear bilaterally, no distress Cardiovascular: RRR, no murmurs, rubs, or gallops Abdominal: Soft, non-tender, non-distended, no peritoneal signs : Deferred MSK: Dressing of the left foot is soaked in stool and feces, the patient has a wound to the lateral aspect of her foot that is draining malodorous and purulent drainage. Swelling and erythema noted to the foot. Neurologic: Alert and oriented, moving all extremities, normal speech, no focal weakness, no cerebellar signs Skin: As described above Psych: Normal mood Result Diagram: 01/07/19195001/07/191950 Results 24 hrs Laboratory Tests Test 01/07/19 19:51 01/07/19 19:59 01/07/19 20:58 White Blood Count 7.0 10^3/ul Red Blood Count 3.92 10^6/ul Hemoglobin 10.6 g/dl Hematocrit 32.9 % Mean Corpuscular Volume 83.9 fl Mean Corpuscular Hemoglobin 27.0 pg Mean Corpuscular 32.2 g/dl Hemoglobin Concent Red Cell Distribution Width 13.4 % Platelet Count 353 10^3/UL Mean Platelet Volume 10.9 fl Immature Granulocytes % 0.400 % Neutrophils % 69.4 % Lymphocytes % 20.3 % Monocytes % 7.8 % Eosinophils % 1.8 % Basophils % 0.3 % Nucleated Red Blood Cells % 0.0 /100WBC Immature Granulocytes # 0.030 10^3/ul Neutrophils # 4.9 10^3/ul Lymphocytes # 1.4 10^3/ul Monocytes # 0.6 10^3/ul Eosinophils # 0.1 10^3/ul Basophils # 0.0 10^3/ul Nucleated Red Blood Cells # 0.0 10^3/ul Erythrocyte Sedimentation Rate 54 mm/Hr Prothrombin Time 13.2 Sec Prothrombin Time Ratio 1.0 INR International Normalized Ratio 0.99 Activated Partial Thromboplast 30.1 Sec Time Sodium Level 133 mmol/L Potassium Level 4.2 mmol/L Chloride Level 106 mmol/L Carbon Dioxide Level 22 mmol/L Anion Gap 5 Blood Urea Nitrogen 27 mg/dl Creatinine 1.87 mg/dl Est Glomerular Filtrat Rate mL/min 28 mL/min Glucose Level 517 mg/dl Calcium Level 9.0 mg/dl C-Reactive Protein 4.7 mg/dl POC Venous Lactate 1.4 mmol/L Bedside Glucose 410 mg/dL Current Medications Medications Dose Sig/Kofi Start Time Status Last (Trade) Ordered Route PRN Stop Time Admin Dose Reason Admin Sodium 1,000 ml @ Q1H STAT 01/07/19 DC 01/07/19 Chloride 1,000 mls/hr IV 19:33 20:11 01/07/19 20:32 Insulin 10 unit ONCE ONCE 01/07/19 DC 01/07/19 Human SC 21:00 21:02 Lispro 01/07/19 21:02 (Humalog) Vancomycin 250 ml @ ONCE STAT 01/07/19 HCl 125 mls/hr IVPB 20:42 01/07/19 22:41 Clindamycin 50 ml @ 50 ONCE STAT 01/07/19 HCl/ mls/hr IVPB 20:42 Dextrose 01/07/19 21:41 Piperacillin 100 ml @ ONCE STAT 01/07/19 DC 01/07/19 Sod/ 200 mls/hr IVPB 20:42 20:54 Tazobactam 01/07/19 21:11 Sod Procedures/MDM EKG, MONITORS, & DIAGNOSTIC IMAGING: EKG: I reviewed and interpreted a 12-lead EKG. Rhythm: Normal sinus rhythm ST Changes: No contiguous ST segment elevations T waves: No contiguous T wave inversions Impression: No evidence of acute cardiac ischemia X-ray left foot: Pending formal read LAB INTERPRETATION: I reviewed the laboratory testing and it shows elevated ESR, CRP. Hyperglycemia without evidence of diabetic ketoacidosis MEDICAL DECISION MAKING: Patient presents with a clear infected left foot wound secondary to diabetes, poor hygiene and the patient is not changing her dressing. Concern for early osteomyelitis. No signs or symptoms concerning for sepsis at this time. Lactic acid is reassuring. Hyperglycemia without evidence of diabetic ketoacidosis will be treated with insulin subcutaneously. ER COURSE: * Patient given IV fluids and broad-spectrum antibiotics. * Blood cultures taken prior to antibiotics * Pain is well controlled. Hyperglycemia treated with 10 units of subcutaneous Humalog. No evidence of DKA. * The patient does not meet criteria for Sirs or sepsis in the emergency room setting. CONSULTATION: None DISPOSITION PLAN: Accepting care team and consultations: I discussed the current laboratory data, diagnostic imaging and emergency care provided. Admitting team: Dr. Dorsey Admitting team indication: Insurance directed Departure Diagnosis: Primary Impression: Wound of left foot Additional Impressions: Diabetic foot ulcer Diabetic foot ulcer location: midfoot Diabetes mellitus type: type 2 Laterality: left Non-pressure ulcer stage: unspecified non-pressure ulcer stage Qualified Codes: E11.621 - Type 2 diabetes mellitus with foot ulcer; L97.429 - Non-pressure chronic ulcer of left heel and midfoot with unspecified severity Hyperglycemia Acute renal insufficiency Condition: Stable ANA SHAY MD Jan 07, 2019 21:44
[2019-01-07] MEDS ORDERED: ACETAMINOPHEN 325 MG TAB PO PRN ×2 (22:00→22:30)
[2019-01-07] MEDS ORDERED: ONDANSETRON 4 MG INJ IV PRN ×2 (22:00→22:30)
[2019-01-07] MEDS ORDERED: HYDROCODONE/APAP (5/325) TAB PO PRN (22:30)
[2019-01-07] MEDS ORDERED: INSULIN ASPART [NOVOLOG] 3 ML PEN SC ONE (22:30)
[2019-01-07] MEDS ORDERED: ONDANSETRON 4 MG TAB PO PRN (22:30)
[2019-01-07] MEDS ORDERED: NACL 0.9% 3 ML SYG IV SCH (22:30)
[2019-01-07] MEDS ORDERED: GLUCAGON 1 MG INJ IM PRN (23:00)
[2019-01-07] MEDS ORDERED: GLUCOSE GEL 15 GRAM TUBE BUCCAL PRN (23:00)
[2019-01-07] MEDS ORDERED: CALCIUM GLUCONATE 10% 2 GM in DEXTROSE 5% 100 ML IVPB ONE (23:00)
[2019-01-07] MEDS ORDERED: GLUCOSE GEL 15 GRAM TUBE PO PRN ×2 (23:00)
[2019-01-07] MEDS ORDERED: DEXTROSE 50% 50 ML SYRINGE IV PRN ×2 (23:00)
[2019-01-07 23:05] VITALS: BP 152/74; PULSE 91; RESP 17
--- NOTE | 2019-01-07 23:33 | HP ---
Date/Time of Note Date/Time of Note DATE: 01/07/19 TIME: 23:33 Assessment/Plan VTE Prophylaxis Pharmacological prophylaxis: heparin Lines/Catheters IV Catheter Type (from Nrsg): PICC Line Central line still needed: Yes Assessment/Plan Assessment/Plan 1. Diarrhea: -Patient was just discharged in October after placement of a PICC line for long-term IV antibiotic, therefore C. difficile is high on the differential -Stool culture and C. difficile -Treat with Zosyn 2. Chronic left foot wound/osteomyelitis: X-ray shows more prominent erosion of the fifth proximal and metatarsal phalanx -IV antibiotic -Wound culture -ID and podiatry consult as well as wound care consult 3. Hypertension: Continue BP meds 4. Dyslipidemia: Continue statin 5. Diabetes with hyperglycemia: Patient has not been taking her insulin -Adjust insulin as needed 6. CKD: Monitor kidney function closely. Result Diagram: 01/07/19195001/07/191950 Results 24hrs Laboratory Tests Test 01/07/19 19:51 01/07/19 19:59 01/07/19 20:58 01/07/19 21:49 White Blood Count 7.0 Red Blood Count 3.92 L Hemoglobin 10.6 L Hematocrit 32.9 L Mean Corpuscular 83.9 Volume Mean Corpuscular 27.0 L Hemoglobin Mean Corpuscular 32.2 Hemoglobin Concent Red Cell 13.4 Distribution Width Platelet Count 353 # Mean Platelet Volume 10.9 H Immature 0.400 Granulocytes % Neutrophils % 69.4 Lymphocytes % 20.3 Monocytes % 7.8 Eosinophils % 1.8 Basophils % 0.3 Nucleated Red Blood 0.0 Cells % Immature 0.030 Granulocytes # Neutrophils # 4.9 Lymphocytes # 1.4 Monocytes # 0.6 Eosinophils # 0.1 Basophils # 0.0 Nucleated Red Blood 0.0 Cells # Erythrocyte 54 H Sedimentation Rate Prothrombin Time 13.2 Prothrombin Time 1.0 Ratio INR International 0.99 Normalized Ratio Activated 30.1 Partial Thromboplast Time Sodium Level 133 L Potassium Level 4.2 Chloride Level 106 Carbon Dioxide Level 22 Anion Gap 5 Blood Urea Nitrogen 27 H Creatinine 1.87 H Est Glomerular 28 L Filtrat Rate mL/min Glucose Level 517 *H Calcium Level 9.0 C-Reactive Protein 4.7 H POC Venous Lactate 1.4 Bedside Glucose 410 *H 408 *H HPI/ROS Admit Date/Time Admit Date/Time Jan 07, 2019 at 21:39 Hx of Present Illness This is a 53-year-old female with a history of hypertension, diabetes, dyslipidemia, peripheral vascular disease, left foot osteomyelitis/chronic wound. Patient presented to ER complaining of diarrhea for about 5 days. Patient has a chronic left foot ulcer for which she has been getting IV antibiotics and debridements. She was last admitted here in October of this year. At that time she underwent debridement and was discharged home with IV antibiotic after placement of a PICC line. When presented to ER, according to nursing notes, dressing over the left foot was soiled with feces from the diarrhea. She said she was told not to change the dressings. ER notes report worsening drainage on the left foot, however patient denied saying that she came to the hospital only for diarrhea. Diarrhea is watery and nonbloody. In the ER, x-ray of the left foot shows more prominent erosive changes to the base of the fifth proximal phalanx and the distal fifth metatarsal compared to prior study, likely infectious and status post removal of one midfoot fixation screw. PMH/Family/Social Past Medical History Medical History: other (See HPI) Medications Current Medications IV Flush (NS 3 ml) 3 ml PER PROTOCOL IV ; Start 01/07/19 at 22:30 Ondansetron HCl (Zofran Inj) 4 mg Q6H PRN IV NAUSEA/VOMITING; Start 01/07/19 at 22:30 Acetaminophen (Tylenol Tab) 650 mg Q6H PRN PO .PAIN 1-3 OR TEMP; Start 01/07/19 at 22:30 Acetaminophen/ Hydrocodone Bitart ([place] (5/325)) 1 tab Q6H PRN PO .MOD PAIN 4- 6; Start 01/07/19 at 22:30 Acetaminophen/ Hydrocodone Bitart ([place] (5/325)) 2 tab Q6H PRN PO .SEVERE PAIN 7-10; Start 01/07/19 at 22:30 Heparin Sodium (Porcine) (Heparin (5000 Units/1ml)) 5,000 unit Q12 SC ; Start 01/08/19 at 09:00 Amlodipine Besylate (Norvasc) 10 mg DAILY PO ; Start 01/08/19 at 09:00 Ascorbic Acid (Vitamin C) 500 mg DAILY PO ; Start 01/08/19 at 09:00 Aspirin (Aspirin) 81 mg DAILY PO ; Start 01/08/19 at 09:00 Atorvastatin Calcium (Lipitor) 40 mg HS PO ; Start 01/08/19 at 21:00 Bupropion HCl (Wellbutrin Sr) 150 mg BID PO ; Start 01/07/19 at 22:30 Carvedilol (Coreg) 12.5 mg BID PO ; Start 01/08/19 at 09:00 Clopidogrel Bisulfate (plaVIX) 75 mg DAILY PO ; Start 01/08/19 at 09:00 Famotidine (Pepcid) 20 mg DAILY PO ; Start 01/08/19 at 09:00 Hydralazine HCl (Apresoline) 75 mg TID PO ; Start 01/08/19 at 09:00 Insulin Aspart (Novolog Insulin Pen) 8 unit WITH MEALS SC ; Start 01/08/19 at 07:35 Insulin Glargine (Lantus) 24 units QHS SC ; Start 01/07/19 at 22:30 Lisinopril (Zestril) 20 mg DAILY PO ; Start 01/08/19 at 09:00 Montelukast Sodium (Singulair) 10 mg HS PO ; Start 01/08/19 at 21:00 Ondansetron HCl (Zofran Tab) 4 mg Q6H PRN PO NAUSEA AND/OR VOMITING; Start 01/07/19 at 22:30 Polyethylene Glycol (Miralax) 17 gm BID PO ; Start 01/08/19 at 09:00 Sucralfate (Carafate) 1 gm AC MEALS AND BEDTIME PO ; Start 01/08/19 at 07:00 Zinc Sulfate (Zinc Sulfate) 220 mg DAILY PO ; Start 01/08/19 at 09:00 Diagnostic Test (Pha) (Accu-Chek) 1 ea 02 XX ; Start 01/08/19 at 02:00 Insulin Aspart (Novolog Insulin Pen) NOVOLOG *MODERATE* ALGORITHM WITH MEALS BEDTIME SC ; Start 01/08/19 at 08:00 Miscellaneous Information 1 ea NOTE XX ; Start 01/07/19 at 23:00 Glucose (Glutose) 15 gm Q15M PRN PO DECREASED GLUCOSE; Start 01/07/19 at 23:00 Glucose (Glutose) 22.5 gm Q15M PRN PO DECREASED GLUCOSE; Start 01/07/19 at 23:00 Dextrose (D50w Syringe) 25 ml Q15M PRN IV DECREASED GLUCOSE; Start 01/07/19 at 23:00 Dextrose (D50w Syringe) 50 ml Q15M PRN IV DECREASED GLUCOSE; Start 01/07/19 at 23:00 Glucagon (Glucagen) 1 mg Q15M PRN IM DECREASED GLUCOSE; Start 01/07/19 at 23:00 Glucose (Glutose) 15 gm Q15M PRN BUCCAL DECREASED GLUCOSE; Start 01/07/19 at 23:00 Coded Allergies: No Known Allergies (Unverified Allergy, Mild, 01/07/19) Past Surgical History Past Surgical Hx: other (See HPI) Social History Alcohol Use: none Smoking Status: Never smoker Drug Use: none Exam/Review of Systems Vital Signs Vitals Vital Signs Date Temp Pulse Resp B/P (MAP) Pulse Ox O2 O2 Flow FiO2 Time Delivery Rate 01/07/19 99.3 103 18 131/51 100 Room Air 22:27 (77) Exam Constitutional: other (No acute distress) Head: normocephalic, atraumatic Eyes: EOMI, PERRL Respiratory: clear to auscultation, normal air movement Cardiovascular: regular rate and rhythm, nl pulses Gastrointestinal: soft Extremities: other (Left foot is covered with dressing, which is now clean and dry) YUNIEL ESCOBAR MD Jan 07, 2019 23:33
[2019-01-07] MEDS: BUPROPION (SR) 150 MG TAB PO SCH (23:50)
[2019-01-07] MEDS: HYDROCODONE/APAP (5/325) TAB PO PRN (23:53)
[2019-01-08] MEDS: INSULIN GLARGINE [LANTus] (100 UNITS/ML) SYG SC SCH ×2 (00:13→21:59)
[2019-01-08] MEDS ORDERED: PENDING SANTYL ORDER FOR WOUND CARE XX PRN (01:00)
[2019-01-08 02:13] VITALS: BP 129/61; PULSE 83; RESP 18
[2019-01-08] MEDS: ACCU-CHEK XX SCH (02:40)
[2019-01-08 05:40] VITALS: Ht 165.1 cm; Wt 59.8 kg
[2019-01-08 07:15] VITALS: BP 166/82; PULSE 82; RESP 16
[2019-01-08] MEDS: SUCRALFATE 1 GM TAB PO SCH ×4 (07:29→21:56)
[2019-01-08] MEDS ORDERED: PIPER-TAZO 3.375 GM IV (PMX) 100 ML IVPB SCH (09:00)
[2019-01-08] MEDS ORDERED: VANCOMYCIN IV PER PHARMACY XX SCH (09:00)
[2019-01-08] MEDS: POLYETHYLENE GLYCOL 17 GM PACKET PO SCH ×2 (09:00→22:05)
[2019-01-08] MEDS: HEPARIN 5,000 UNIT/1 ML VIAL SC SCH ×2 (09:28→21:58)
[2019-01-08] MEDS: INSULIN ASPART [NOVOLOG] 3 ML PEN SC SCH ×7 (09:29→21:00)
[2019-01-08] MEDS: BUPROPION (SR) 150 MG TAB PO SCH ×2 (09:34→21:56)
[2019-01-08] MEDS: CLOPIDOGREL 75 MG TAB PO SCH (09:34)
[2019-01-08] MEDS: ASCORBIC ACID 500 MG TAB PO SCH (09:35)
[2019-01-08] MEDS: ZINC SULFATE 220 MG CAP PO SCH (09:36)
[2019-01-08] MEDS: ASPIRIN 81 MG TAB PO SCH (09:36)
[2019-01-08] MEDS: FAMOTIDINE 20 MG TAB PO SCH (09:36)
[2019-01-08] MEDS: AMLODIPINE 10 MG TAB PO SCH (09:36)
[2019-01-08] MEDS: LISINOPRIL 20 MG TAB PO SCH (09:36)
[2019-01-08] MEDS: PIPER-TAZO 2.25 GM/NS 50 ML IVPB SCH ×3 (11:30→17:57)
--- NOTE | 2019-01-08 12:09 | PN ---
Date/Time of Note Date/Time of Note DATE: 01/08/19 TIME: 12:07 Assessment/Plan VTE Prophylaxis SCD applied (from Nsg): Yes Pharmacological prophylaxis: NA/contraindicated Pharm contraindication: low risk/ambulating (also on dual antiplatelet) Lines/Catheters IV Catheter Type (from Nrsg): Saline Lock Assessment/Plan Hospital Course 53-year-old female withChronic osteomyelitis who presented with diarrhea, h yperglycemia and evidence of active wound infection currently admitted and managed as follows: 1. Chronic left foot wound with osteomyelitis that looks like it is failing antibiotic therapy -Noncompliance may also be a factor 2. Diarrhea rule out C. difficile: -Patient has had one bowel movement so far, f/u C diff assay 3. Diabetes mellitus with suboptimal home control: -Patient has not been on medication, improved in-house control 4. Chronic kidney disease with possible acute renal insufficiency -Patient's baseline creatinine seems to be somewhere between 1.1 and 1.3, she is currently 1.83 -Monitor labs, renally dose all meds, avoid nephrotoxic drugs 5. Chronic hypochromic anemia -Diagnosed with iron deficiency September of this year, will repeat levels to assess 6. Dyslipidemia: Continue statin 7. Coronary artery disease on Plavix: Continue home meds 8. Chronic depression: Continue bupropion Plan: Follow-up repeat cultures ID and podiatry consultation, patient may require repeat debridement, evidence of osteomyelitis on x-ray no indication for MRI at this time, will defer to podiatry however. Result Diagram: 01/08/19 0650 01/08/19 0650 Results 24hrs Laboratory Tests Test 01/07/19 19:51 01/07/19 19:59 01/07/19 20:58 01/07/19 21:49 White Blood Count 7.0 Red Blood Count 3.92 L Hemoglobin 10.6 L Hematocrit 32.9 L Mean Corpuscular 83.9 Volume Mean Corpuscular 27.0 L Hemoglobin Mean Corpuscular 32.2 Hemoglobin Concent Red Cell 13.4 Distribution Width Platelet Count 353 # Mean Platelet Volume 10.9 H Immature 0.400 Granulocytes % Neutrophils % 69.4 Lymphocytes % 20.3 Monocytes % 7.8 Eosinophils % 1.8 Basophils % 0.3 Nucleated Red Blood 0.0 Cells % Immature 0.030 Granulocytes # Neutrophils # 4.9 Lymphocytes # 1.4 Monocytes # 0.6 Eosinophils # 0.1 Basophils # 0.0 Nucleated Red Blood 0.0 Cells # Erythrocyte 54 H Sedimentation Rate Prothrombin Time 13.2 Prothrombin Time 1.0 Ratio INR International 0.99 Normalized Ratio Activated 30.1 Partial Thromboplast Time Sodium Level 133 L Potassium Level 4.2 Chloride Level 106 Carbon Dioxide Level 22 Anion Gap 5 Blood Urea Nitrogen 27 H Creatinine 1.87 H Est Glomerular 28 L Filtrat Rate mL/min Glucose Level 517 *H Calcium Level 9.0 C-Reactive Protein 4.7 H POC Venous Lactate 1.4 Bedside Glucose 410 *H 408 *H Test 01/07/19 23:48 01/08/19 00:29 01/08/19 02:08 01/08/19 06:50 Bedside Glucose 187 83 Lactic Acid Level 1.0 White Blood Count 7.9 Red Blood Count 3.49 L Hemoglobin 9.6 L Hematocrit 29.9 L Mean Corpuscular 85.7 Volume Mean Corpuscular 27.5 L Hemoglobin Mean Corpuscular 32.1 Hemoglobin Concent Red Cell 13.6 Distribution Width Platelet Count 294 Mean Platelet Volume 11.2 H Immature 0.600 H Granulocytes % Neutrophils % 68.5 Lymphocytes % 19.6 Monocytes % 8.6 Eosinophils % 2.3 Basophils % 0.4 Nucleated Red Blood 0.0 Cells % Immature 0.050 H Granulocytes # Neutrophils # 5.4 Lymphocytes # 1.5 Monocytes # 0.7 Eosinophils # 0.2 Basophils # 0.0 Nucleated Red Blood 0.0 Cells # Sodium Level 139 Potassium Level 4.2 Chloride Level 113 H Carbon Dioxide Level 20 L Anion Gap 6 Blood Urea Nitrogen 24 H Creatinine 1.83 H Est Glomerular 29 L Filtrat Rate mL/min Glucose Level 122 # Calcium Level 9.0 Phosphorus Level 5.1 H Magnesium Level 1.9 Total Bilirubin 0.3 Direct Bilirubin 0.00 Indirect Bilirubin 0.3 Aspartate Amino 13 L Transf (AST/SGOT) Alanine 10 L Aminotransferase (AL T/SGPT) Alkaline Phosphatase 137 H Total Protein 5.5 L Albumin 2.5 L Globulin 3.00 Albumin/Globulin 0.83 Ratio Test 01/08/19 09:26 01/08/19 11:32 Bedside Glucose 148 183 Subjective 24 Hr Interval Summary Free Text/Dictation No new complaints, has some pain in her foot, has had one more diarrheal episodes since admission Exam/Review of Systems Exam Vitals Vital Signs Date Temp Pulse Resp B/P (MAP) Pulse Ox O2 O2 Flow FiO2 Time Delivery Rate 01/08/19 97.8 82 16 166/82 99 Nasal 07:15 (110) Cannula Intake and Output 01/07/19 01/07/19 01/08/19 1515:00 23:00 07:00 IntakeIntake Total 1150 ml 250 ml BalanceBalance 1150 ml 250 ml Exam Constitutional: other (No acute distress) Head: normocephalic, atraumatic Eyes: EOMI, PERRL Respiratory: clear to auscultation, normal air movement Cardiovascular: regular rate and rhythm, nl pulses Gastrointestinal: soft Extremities: other (Left foot is covered with dressing, which is now clean and dry) Results Results 24hrs Laboratory Tests Test 01/07/19 19:51 01/07/19 19:59 01/07/19 20:58 01/07/19 21:49 White Blood Count 7.0 Red Blood Count 3.92 L Hemoglobin 10.6 L Hematocrit 32.9 L Mean Corpuscular 83.9 Volume Mean Corpuscular 27.0 L Hemoglobin Mean Corpuscular 32.2 Hemoglobin Concent Red Cell 13.4 Distribution Width Platelet Count 353 # Mean Platelet Volume 10.9 H Immature 0.400 Granulocytes % Neutrophils % 69.4 Lymphocytes % 20.3 Monocytes % 7.8 Eosinophils % 1.8 Basophils % 0.3 Nucleated Red Blood 0.0 Cells % Immature 0.030 Granulocytes # Neutrophils # 4.9 Lymphocytes # 1.4 Monocytes # 0.6 Eosinophils # 0.1 Basophils # 0.0 Nucleated Red Blood 0.0 Cells # Erythrocyte 54 H Sedimentation Rate Prothrombin Time 13.2 Prothrombin Time 1.0 Ratio INR International 0.99 Normalized Ratio Activated 30.1 Partial Thromboplast Time Sodium Level 133 L Potassium Level 4.2 Chloride Level 106 Carbon Dioxide Level 22 Anion Gap 5 Blood Urea Nitrogen 27 H Creatinine 1.87 H Est Glomerular 28 L Filtrat Rate mL/min Glucose Level 517 *H Calcium Level 9.0 C-Reactive Protein 4.7 H POC Venous Lactate 1.4 Bedside Glucose 410 *H 408 *H Test 01/07/19 23:48 01/08/19 00:29 01/08/19 02:08 01/08/19 06:50 Bedside Glucose 187 83 Lactic Acid Level 1.0 White Blood Count 7.9 Red Blood Count 3.49 L Hemoglobin 9.6 L Hematocrit 29.9 L Mean Corpuscular 85.7 Volume Mean Corpuscular 27.5 L Hemoglobin Mean Corpuscular 32.1 Hemoglobin Concent Red Cell 13.6 Distribution Width Platelet Count 294 Mean Platelet Volume 11.2 H Immature 0.600 H Granulocytes % Neutrophils % 68.5 Lymphocytes % 19.6 Monocytes % 8.6 Eosinophils % 2.3 Basophils % 0.4 Nucleated Red Blood 0.0 Cells % Immature 0.050 H Granulocytes # Neutrophils # 5.4 Lymphocytes # 1.5 Monocytes # 0.7 Eosinophils # 0.2 Basophils # 0.0 Nucleated Red Blood 0.0 Cells # Sodium Level 139 Potassium Level 4.2 Chloride Level 113 H Carbon Dioxide Level 20 L Anion Gap 6 Blood Urea Nitrogen 24 H Creatinine 1.83 H Est Glomerular 29 L Filtrat Rate mL/min Glucose Level 122 # Calcium Level 9.0 Phosphorus Level 5.1 H Magnesium Level 1.9 Total Bilirubin 0.3 Direct Bilirubin 0.00 Indirect Bilirubin 0.3 Aspartate Amino 13 L Transf (AST/SGOT) Alanine 10 L Aminotransferase (AL T/SGPT) Alkaline Phosphatase 137 H Total Protein 5.5 L Albumin 2.5 L Globulin 3.00 Albumin/Globulin 0.83 Ratio Test 01/08/19 09:26 01/08/19 11:32 Bedside Glucose 148 183 Medications Medication Current Medications IV Flush (NS 3 ml) 3 ml PER PROTOCOL IV ; Start 01/07/19 at 22:30 Ondansetron HCl (Zofran Inj) 4 mg Q6H PRN IV NAUSEA/VOMITING; Start 01/07/19 at 22:30 Acetaminophen (Tylenol Tab) 650 mg Q6H PRN PO .PAIN 1-3 OR TEMP; Start 01/07/19 at 22:30 Acetaminophen/ Hydrocodone Bitart (Francis (5/325)) 1 tab Q6H PRN PO .MOD PAIN 4- 6; Start 01/07/19 at 22:30 Acetaminophen/ Hydrocodone Bitart (Francis (5/325)) 2 tab Q6H PRN PO .SEVERE PAIN 7-10 Last administered on 01/07/19at 23:53; Admin Dose 2 TAB; Start 01/07/19 at 22:30 Heparin Sodium (Porcine) (Heparin (5000 Units/1ml)) 5,000 unit Q12 SC Last administered on 01/08/19 09:28; Admin Dose 5,000 UNIT; Start 01/08/19 at 09:00 Amlodipine Besylate (Norvasc) 10 mg DAILY PO Last administered on 01/08/19 09:36; Admin Dose 10 MG; Start 01/08/19 at 09:00 Ascorbic Acid (Vitamin C) 500 mg DAILY PO Last administered on 01/08/19 09:35; Admin Dose 500 MG; Start 01/08/19 at 09:00 Aspirin (Aspirin) 81 mg DAILY PO Last administered on 01/08/19 09:36; Admin Dose 81 MG; Start 01/08/19 at 09:00 Atorvastatin Calcium (Lipitor) 40 mg HS PO ; Start 01/08/19 at 21:00 Bupropion HCl (Wellbutrin Sr) 150 mg BID PO Last administered on 01/08/19 09:34; Admin Dose 150 MG; Start 01/07/19 at 22:30 Carvedilol (Coreg) 12.5 mg BID PO Last administered on 01/08/19 09:35; Admin Dose 12.5 MG; Start 01/08/19 at 09:00 Clopidogrel Bisulfate (plaVIX) 75 mg DAILY PO Last administered on 01/08/19 09:34; Admin Dose 75 MG; Start 01/08/19 at 09:00 Famotidine (Pepcid) 20 mg DAILY PO Last administered on 01/08/19 09:36; Admin Dose 20 MG; Start 01/08/19 at 09:00 Hydralazine HCl (Apresoline) 75 mg TID PO Last administered on 01/08/19 09:35; Admin Dose 75 MG; Start 01/08/19 at 09:00 Insulin Aspart (Novolog Insulin Pen) 8 unit WITH MEALS SC Last administered on 01/08/19 11:40; Admin Dose 8 UNIT; Start 01/08/19 at 07:35 Insulin Glargine (Lantus) 24 units QHS SC Last administered on 01/08/19 00:13; Admin Dose 24 UNITS; Start 01/07/19 at 22:30 Lisinopril (Zestril) 20 mg DAILY PO Last administered on 01/08/19 09:36; Admin Dose 20 MG; Start 01/08/19 at 09:00; Status Hold Montelukast Sodium (Singulair) 10 mg HS PO ; Start 01/08/19 at 21:00 Ondansetron HCl (Zofran Tab) 4 mg Q6H PRN PO NAUSEA AND/OR VOMITING; Start 01/07/19 at 22:30 Polyethylene Glycol (Miralax) 17 gm BID PO ; Start 01/08/19 at 09:00 Sucralfate (Carafate) 1 gm AC MEALS AND BEDTIME PO Last administered on 01/08/19at 11:30; Admin Dose 1 GM; Start 01/08/19 at 07:00 Zinc Sulfate (Zinc Sulfate) 220 mg DAILY PO Last administered on 01/08/19at 09:36; Admin Dose 220 MG; Start 01/08/19 at 09:00 Diagnostic Test (Pha) (Accu-Chek) 1 ea 02 XX Last administered on 01/08/19at 02:40; Admin Dose 1 EA; Start 01/08/19 at 02:00 Insulin Aspart (Novolog Insulin Pen) NOVOLOG *MODERATE* ALGORITHM WITH MEALS BEDTIME SC Last administered on 01/08/19at 11:41; Admin Dose 4 UNIT; Start 01/08/19 at 08:00 Miscellaneous Information 1 ea NOTE XX ; Start 01/07/19 at 23:00 Glucose (Glutose) 15 gm Q15M PRN PO DECREASED GLUCOSE; Start 01/07/19 at 23:00 Glucose (Glutose) 22.5 gm Q15M PRN PO DECREASED GLUCOSE; Start 01/07/19 at 23:00 Dextrose (D50w Syringe) 25 ml Q15M PRN IV DECREASED GLUCOSE; Start 01/07/19 at 23:00 Dextrose (D50w Syringe) 50 ml Q15M PRN IV DECREASED GLUCOSE; Start 01/07/19 at 23:00 Glucagon (Glucagen) 1 mg Q15M PRN IM DECREASED GLUCOSE; Start 01/07/19 at 23:00 Glucose (Glutose) 15 gm Q15M PRN BUCCAL DECREASED GLUCOSE; Start 01/07/19 at 23:00 Miscellaneous Information (Pending Santyl Order For Wound Care) This patient rodríguez... PRN PRN XX WOUND CARE; Start 01/08/19 at 01:00 Vancomycin HCl (Vanco Iv Per Pharmacy) VANCOMYCIN PER PHARMACY PER PROTOCOL XX ; Start 01/08/19 at 09:00 Piperacillin Sod/ Tazobactam Sod 50 ml @ 100 mls/hr Q6 IVPB Last administered on 01/08/19at 11:30; Admin Dose 100 MLS/HR; Start 01/08/19 at 10:00 Vancomycin/Sodium Chloride 250 ml @ 125 mls/hr Q24H IVPB ; Start 01/08/19 at 18:00 ERICKA CATHERINE Jan 08, 2019 12:09
--- NOTE | 2019-01-08 12:34 | CONS ---
Assessment/Plan Assessment/Plan Assessment/Plan (Daily) Left foot diabetic ulcer Charcot neuroarthropathy Osteomyelitis DM2 with peripheral neuropathy PAD hypoalbuminemia Plan Reviewed X-rays, wound cultures showing psuedomonas growth. Recommend local wound care with daily dakins irrigation and application of gentamicin ointment with dry sterile dressings. Offload heels with pillows. IV abx per ID recommendations. Recommend nutrition optimization. Tight glycemic control. Positive for coliform in feces and appreciate ID recommendations. Consultation Date/Type/Reason Admit Date/Time Jan 07, 2019 at 21:39 Date/Time of Note DATE: 01/08/19 TIME: 12:34 Hx of Present Illness 53 y/o diabetic F who has been following up in wound care clinic for long period of time for her left foot chronic ulcerations. Patient had previous surgical debridements with pin fixation. Patient has been on remote computer terminal operator IV abx. She also reported multiple instances of nausea and vomiting. Patient had been reported to have multiple episodes of diarrhea. Patient presents to the floor with chronic left foot ulcerations. ROS Negative except for HPI Past Medical History hypertension, diabetes, dyslipidemia, peripheral vascular disease, left foot osteomyelitis/chronic wound, Charcot neuroarthropathy Medical History: other (See HPI) Home Meds Active Scripts Bupropion Hcl (Bupropion Hcl SR) 150 Mg Tablet.sa, 150 MG PO BID for 11 Days Prov:ERNESTINE KELLOGG MD 10/27/18 Carvedilol* (Carvedilol*) 12.5 Mg Tablet, 12.5 MG PO BID for 14 Days, TAB Prov:ERNESTINE KELLOGG MD 10/27/18 Lisinopril* (Lisinopril*) 20 Mg Tablet, 20 MG PO DAILY for 11 Days, TAB Prov:ERNESTINE KELLOGG MD 10/27/18 Montelukast Sodium* (Montelukast Sodium*) 10 Mg Tablet, 10 MG PO HS for 30 Days, #30 TAB 6 Refills Prov:ERNESTINE KELLOGG MD 10/27/18 Aspirin (Aspirin) 81 Mg Chew, 81 MG PO DAILY for 30 Days, #30 TAB 6 Refills Prov:SANCHEZ ANDERSON MD 08/26/18 Hydralazine Hcl* (Apresoline*) 50 Mg Tab, 75 MG PO TID for 30 Days, #90 TAB 6 Refills Prov:SANCHEZ ANDERSON MD 08/26/18 Atorvastatin* (Atorvastatin*) 40 Mg Tablet, 40 MG PO HS for 30 Days, #30 TAB 6 Refills Prov:SANCHEZ ANDERSON MD 08/26/18 Clopidogrel Bisulfate (Clopidogrel) 75 Mg Tablet, 75 MG PO DAILY for 30 Days, #30 TAB 6 Refills Prov:SANCHEZ ANDERSON MD 08/26/18 Reported Medications Insulin Glargine* (Lantus*) 100 Unit/Ml Soln, 24 UNIT SC QHS, #1 VIAL 11/12/18 Insulin Aspart* (Novolog Insulin Pen*) 100 Unit/Ml Soln, 8 UNIT SC WITH MEALS, EA 11/12/18 Ondansetron Hcl* (Zofran*) 4 Mg Tablet, 4 MG PO Q6H PRN for NAUSEA AND OR VOMITING, TAB 11/12/18 Polyethylene Glycol* (Miralax*) 17 Gm Powd.pack, 17 GM PO BID, #60 PACKET 11/12/18 Ascorbic Acid (Vitamin C) 500 Mg Tab, 500 MG PO DAILY, TAB 11/12/18 Zinc Sulfate* (Zinc Sulfate*) 220 Mg Cap, 220 MG PO DAILY, CAP 11/12/18 Sucralfate* (Carafate*) 1 Gm Tab, 1 GM PO AC MEALS AND BEDTIME, TAB 11/12/18 Famotidine* (Pepcid*) 20 Mg Tablet, 20 MG PO DAILY, #30 TAB 11/12/18 Amlodipine Besylate* (Amlodipine Besylate*) 10 Mg Tablet, 10 MG PO DAILY, #30 TAB 10/05/18 Discontinued Reported Medications Multivitamin with Minerals (Multivitamins with Minerals) 1 Each Tablet, 1 EACH PO DAILY, TAB 11/12/18 Enoxaparin Sodium* (Lovenox*) 40 Mg/0.4 Ml Syringe, 40 MG SC DAILY, SYR 11/12/18 Amino Acids/Protein Hydrolys (PRO-STAT LIQUID) 30 Ml Liquid.pkt, 30 ML PO DAILY for SUGAR FREE 11/12/18 Discontinued Scripts Ondansetron (Ondansetron Odt) 4 Mg Tab.rapdis, 4 MG PO Q6H PRN for NAUSEA AND/OR VOMITING, #10 TAB Prov:ESTHER PERKINS MD 12/31/18 Voriconazole* (Vfend*) 200 Mg Tablet, 200 MG PO BID for 14 Days, TAB Prov:HERNANDEZ VILLA 11/23/18 Medications Current Medications IV Flush (NS 3 ml) 3 ml PER PROTOCOL IV ; Start 01/07/19 at 22:30 Ondansetron HCl (Zofran Inj) 4 mg Q6H PRN IV NAUSEA/VOMITING; Start 01/07/19 at 22:30 Acetaminophen (Tylenol Tab) 650 mg Q6H PRN PO .PAIN 1-3 OR TEMP; Start 01/07/19 at 22:30 Acetaminophen/ Hydrocodone Bitart ([place] (5/325)) 1 tab Q6H PRN PO .MOD PAIN 4- 6; Start 01/07/19 at 22:30 Acetaminophen/ Hydrocodone Bitart ([place] (5/325)) 2 tab Q6H PRN PO .SEVERE PAIN 7-10 Last administered on 01/07/19at 23:53; Admin Dose 2 TAB; Start 01/07/19 at 22:30 Heparin Sodium (Porcine) (Heparin (5000 Units/1ml)) 5,000 unit Q12 SC Last administered on 01/08/19 09:28; Admin Dose 5,000 UNIT; Start 01/08/19 at 09:00 Amlodipine Besylate (Norvasc) 10 mg DAILY PO Last administered on 01/08/19 09:36; Admin Dose 10 MG; Start 01/08/19 at 09:00 Ascorbic Acid (Vitamin C) 500 mg DAILY PO Last administered on 01/08/19 09:35; Admin Dose 500 MG; Start 01/08/19 at 09:00 Aspirin (Aspirin) 81 mg DAILY PO Last administered on 01/08/19 09:36; Admin Dose 81 MG; Start 01/08/19 at 09:00 Atorvastatin Calcium (Lipitor) 40 mg HS PO ; Start 01/08/19 at 21:00 Bupropion HCl (Wellbutrin Sr) 150 mg BID PO Last administered on 01/08/19 09:34; Admin Dose 150 MG; Start 01/07/19 at 22:30 Carvedilol (Coreg) 12.5 mg BID PO Last administered on 01/08/19 09:35; Admin Dose 12.5 MG; Start 01/08/19 at 09:00 Clopidogrel Bisulfate (plaVIX) 75 mg DAILY PO Last administered on 01/08/19 09:34; Admin Dose 75 MG; Start 01/08/19 at 09:00 Famotidine (Pepcid) 20 mg DAILY PO Last administered on 01/08/19 09:36; Admin Dose 20 MG; Start 01/08/19 at 09:00 Hydralazine HCl (Apresoline) 75 mg TID PO Last administered on 01/08/19 09:35; Admin Dose 75 MG; Start 01/08/19 at 09:00 Insulin Aspart (Novolog Insulin Pen) 8 unit WITH MEALS SC Last administered on 01/08/19 11:40; Admin Dose 8 UNIT; Start 01/08/19 at 07:35 Insulin Glargine (Lantus) 24 units QHS SC Last administered on 01/08/19 00:13; Admin Dose 24 UNITS; Start 01/07/19 at 22:30 Lisinopril (Zestril) 20 mg DAILY PO Last administered on 01/08/19 09:36; Admin Dose 20 MG; Start 01/08/19 at 09:00; Status Hold Montelukast Sodium (Singulair) 10 mg HS PO ; Start 01/08/19 at 21:00 Ondansetron HCl (Zofran Tab) 4 mg Q6H PRN PO NAUSEA AND/OR VOMITING; Start 01/07/19 at 22:30 Polyethylene Glycol (Miralax) 17 gm BID PO ; Start 01/08/19 at 09:00 Sucralfate (Carafate) 1 gm AC MEALS AND BEDTIME PO Last administered on 01/08/19 11:30; Admin Dose 1 GM; Start 01/08/19 at 07:00 Zinc Sulfate (Zinc Sulfate) 220 mg DAILY PO Last administered on 01/08/19 09:36; Admin Dose 220 MG; Start 01/08/19 at 09:00 Diagnostic Test (Pha) (Accu-Chek) 1 ea 02 XX Last administered on 01/08/19 02:40; Admin Dose 1 EA; Start 01/08/19 at 02:00 Insulin Aspart (Novolog Insulin Pen) NOVOLOG *MODERATE* ALGORITHM WITH MEALS BEDTIME SC Last administered on 01/08/19 11:41; Admin Dose 4 UNIT; Start 01/08/19 at 08:00 Miscellaneous Information 1 ea NOTE XX ; Start 01/07/19 at 23:00 Glucose (Glutose) 15 gm Q15M PRN PO DECREASED GLUCOSE; Start 01/07/19 at 23:00 Glucose (Glutose) 22.5 gm Q15M PRN PO DECREASED GLUCOSE; Start 01/07/19 at 23:00 Dextrose (D50w Syringe) 25 ml Q15M PRN IV DECREASED GLUCOSE; Start 01/07/19 at 23:00 Dextrose (D50w Syringe) 50 ml Q15M PRN IV DECREASED GLUCOSE; Start 01/07/19 at 23:00 Glucagon (Glucagen) 1 mg Q15M PRN IM DECREASED GLUCOSE; Start 01/07/19 at 23:00 Glucose (Glutose) 15 gm Q15M PRN BUCCAL DECREASED GLUCOSE; Start 01/07/19 at 23:00 Miscellaneous Information (Pending Santyl Order For Wound Care) This patient rodríguez... PRN PRN XX WOUND CARE; Start 01/08/19 at 01:00 Vancomycin HCl (Vanco Iv Per Pharmacy) VANCOMYCIN PER PHARMACY PER PROTOCOL XX ; Start 01/08/19 at 09:00 Piperacillin Sod/ Tazobactam Sod 50 ml @ 100 mls/hr Q6 IVPB Last administered on 01/08/19at 11:30; Admin Dose 100 MLS/HR; Start 01/08/19 at 10:00 Vancomycin/Sodium Chloride 250 ml @ 125 mls/hr Q24H IVPB ; Start 01/08/19 at 18:00 Allergies: Coded Allergies: No Known Allergies (Unverified Allergy, Mild, 01/07/19) Past Surgical History multiple foot debridements, skin grafting and pin wire fixation of foot. Past Surgical Hx: other (See HPI) Family History Significant Family History: no pertinent family hx Social History Alcohol Use: none Smoking Status: Never smoker Drug Use: none Exam/Review of Systems Exam Vitals Vital Signs Date Temp Pulse Resp B/P (MAP) Pulse Ox O2 O2 Flow FiO2 Time Delivery Rate 01/08/19 97.8 82 16 166/82 99 Nasal 07:15 (110) Cannula Intake and Output 01/07/19 01/07/19 01/08/19 1515:00 23:00 07:00 IntakeIntake Total 1150 ml 250 ml BalanceBalance 1150 ml 250 ml Exam palpable pedal pulses absent protective sensations dorsal foot with skin graft placement and sign of epithelialization Left lateral foot ulceration 0.8 x 0.5 x 0.4 fibrotic wound base, no active purulence noted Left posterior heel fibrogranular wound base 3 x 4 x 0.3cm, no purulence, no proximal streaking. Absent protective sensations Midfoot collapse No foul odor noted. Left foot x-ray IMPRESSION: More prominent erosive changes to the base of the fifth proximal phalanx and the distal fifth metatarsal compared to prior study, likely infectious. Status post removal of one midfoot fixation screw. Otherwise, the remainder of the study is unchanged. Results Result Diagram: 01/08/19 0650 01/08/19 0650 Results 24hrs Laboratory Tests Test 01/07/19 19:51 01/07/19 19:59 01/07/19 20:58 01/07/19 21:49 White Blood Count 7.0 Red Blood Count 3.92 L Hemoglobin 10.6 L Hematocrit 32.9 L Mean Corpuscular 83.9 Volume Mean Corpuscular 27.0 L Hemoglobin Mean Corpuscular 32.2 Hemoglobin Concent Red Cell 13.4 Distribution Width Platelet Count 353 # Mean Platelet Volume 10.9 H Immature 0.400 Granulocytes % Neutrophils % 69.4 Lymphocytes % 20.3 Monocytes % 7.8 Eosinophils % 1.8 Basophils % 0.3 Nucleated Red Blood 0.0 Cells % Immature 0.030 Granulocytes # Neutrophils # 4.9 Lymphocytes # 1.4 Monocytes # 0.6 Eosinophils # 0.1 Basophils # 0.0 Nucleated Red Blood 0.0 Cells # Erythrocyte 54 H Sedimentation Rate Prothrombin Time 13.2 Prothrombin Time 1.0 Ratio INR International 0.99 Normalized Ratio Activated 30.1 Partial Thromboplast Time Sodium Level 133 L Potassium Level 4.2 Chloride Level 106 Carbon Dioxide Level 22 Anion Gap 5 Blood Urea Nitrogen 27 H Creatinine 1.87 H Est Glomerular 28 L Filtrat Rate mL/min Glucose Level 517 *H Calcium Level 9.0 C-Reactive Protein 4.7 H POC Venous Lactate 1.4 Bedside Glucose 410 *H 408 *H Test 01/07/19 23:48 01/08/19 00:29 01/08/19 02:08 01/08/19 06:50 Bedside Glucose 187 83 Lactic Acid Level 1.0 White Blood Count 7.9 Red Blood Count 3.49 L Hemoglobin 9.6 L Hematocrit 29.9 L Mean Corpuscular 85.7 Volume Mean Corpuscular 27.5 L Hemoglobin Mean Corpuscular 32.1 Hemoglobin Concent Red Cell 13.6 Distribution Width Platelet Count 294 Mean Platelet Volume 11.2 H Immature 0.600 H Granulocytes % Neutrophils % 68.5 Lymphocytes % 19.6 Monocytes % 8.6 Eosinophils % 2.3 Basophils % 0.4 Nucleated Red Blood 0.0 Cells % Immature 0.050 H Granulocytes # Neutrophils # 5.4 Lymphocytes # 1.5 Monocytes # 0.7 Eosinophils # 0.2 Basophils # 0.0 Nucleated Red Blood 0.0 Cells # Sodium Level 139 Potassium Level 4.2 Chloride Level 113 H Carbon Dioxide Level 20 L Anion Gap 6 Blood Urea Nitrogen 24 H Creatinine 1.83 H Est Glomerular 29 L Filtrat Rate mL/min Glucose Level 122 # Calcium Level 9.0 Phosphorus Level 5.1 H Magnesium Level 1.9 Total Bilirubin 0.3 Direct Bilirubin 0.00 Indirect Bilirubin 0.3 Aspartate Amino 13 L Transf (AST/SGOT) Alanine 10 L Aminotransferase (AL T/SGPT) Alkaline Phosphatase 137 H Total Protein 5.5 L Albumin 2.5 L Globulin 3.00 Albumin/Globulin 0.83 Ratio Test 01/08/19 09:26 01/08/19 11:32 Bedside Glucose 148 183 Medications Medication Current Medications IV Flush (NS 3 ml) 3 ml PER PROTOCOL IV ; Start 01/07/19 at 22:30 Ondansetron HCl (Zofran Inj) 4 mg Q6H PRN IV NAUSEA/VOMITING; Start 01/07/19 at 22:30 Acetaminophen (Tylenol Tab) 650 mg Q6H PRN PO .PAIN 1-3 OR TEMP; Start 01/07/19 at 22:30 Acetaminophen/ Hydrocodone Bitart ([place] (5/325)) 1 tab Q6H PRN PO .MOD PAIN 4- 6; Start 01/07/19 at 22:30 Acetaminophen/ Hydrocodone Bitart ([place] (5/325)) 2 tab Q6H PRN PO .SEVERE PAIN 7-10 Last administered on 01/07/19at 23:53; Admin Dose 2 TAB; Start 01/07/19 at 22:30 Heparin Sodium (Porcine) (Heparin (5000 Units/1ml)) 5,000 unit Q12 SC Last administered on 01/08/19at 09:28; Admin Dose 5,000 UNIT; Start 01/08/19 at 09:00 Amlodipine Besylate (Norvasc) 10 mg DAILY PO Last administered on 01/08/19 09:36; Admin Dose 10 MG; Start 01/08/19 at 09:00 Ascorbic Acid (Vitamin C) 500 mg DAILY PO Last administered on 01/08/19 09:35; Admin Dose 500 MG; Start 01/08/19 at 09:00 Aspirin (Aspirin) 81 mg DAILY PO Last administered on 01/08/19 09:36; Admin Dose 81 MG; Start 01/08/19 at 09:00 Atorvastatin Calcium (Lipitor) 40 mg HS PO ; Start 01/08/19 at 21:00 Bupropion HCl (Wellbutrin Sr) 150 mg BID PO Last administered on 01/08/19 09:34; Admin Dose 150 MG; Start 01/07/19 at 22:30 Carvedilol (Coreg) 12.5 mg BID PO Last administered on 01/08/19 09:35; Admin Dose 12.5 MG; Start 01/08/19 at 09:00 Clopidogrel Bisulfate (plaVIX) 75 mg DAILY PO Last administered on 01/08/19 09:34; Admin Dose 75 MG; Start 01/08/19 at 09:00 Famotidine (Pepcid) 20 mg DAILY PO Last administered on 01/08/19 09:36; Admin Dose 20 MG; Start 01/08/19 at 09:00 Hydralazine HCl (Apresoline) 75 mg TID PO Last administered on 01/08/19 09:35; Admin Dose 75 MG; Start 01/08/19 at 09:00 Insulin Aspart (Novolog Insulin Pen) 8 unit WITH MEALS SC Last administered on 01/08/19 11:40; Admin Dose 8 UNIT; Start 01/08/19 at 07:35 Insulin Glargine (Lantus) 24 units QHS SC Last administered on 01/08/19 00:13; Admin Dose 24 UNITS; Start 01/07/19 at 22:30 Lisinopril (Zestril) 20 mg DAILY PO Last administered on 01/08/19 09:36; Admin Dose 20 MG; Start 01/08/19 at 09:00; Status Hold Montelukast Sodium (Singulair) 10 mg HS PO ; Start 01/08/19 at 21:00 Ondansetron HCl (Zofran Tab) 4 mg Q6H PRN PO NAUSEA AND/OR VOMITING; Start 01/07/19 at 22:30 Polyethylene Glycol (Miralax) 17 gm BID PO ; Start 01/08/19 at 09:00 Sucralfate (Carafate) 1 gm AC MEALS AND BEDTIME PO Last administered on 01/08/19at 11:30; Admin Dose 1 GM; Start 01/08/19 at 07:00 Zinc Sulfate (Zinc Sulfate) 220 mg DAILY PO Last administered on 01/08/19at 09:36; Admin Dose 220 MG; Start 01/08/19 at 09:00 Diagnostic Test (Pha) (Accu-Chek) 1 ea 02 XX Last administered on 01/08/19at 02:40; Admin Dose 1 EA; Start 01/08/19 at 02:00 Insulin Aspart (Novolog Insulin Pen) NOVOLOG *MODERATE* ALGORITHM WITH MEALS BEDTIME SC Last administered on 01/08/19at 11:41; Admin Dose 4 UNIT; Start 01/08/19 at 08:00 Miscellaneous Information 1 ea NOTE XX ; Start 01/07/19 at 23:00 Glucose (Glutose) 15 gm Q15M PRN PO DECREASED GLUCOSE; Start 01/07/19 at 23:00 Glucose (Glutose) 22.5 gm Q15M PRN PO DECREASED GLUCOSE; Start 01/07/19 at 23:00 Dextrose (D50w Syringe) 25 ml Q15M PRN IV DECREASED GLUCOSE; Start 01/07/19 at 23:00 Dextrose (D50w Syringe) 50 ml Q15M PRN IV DECREASED GLUCOSE; Start 01/07/19 at 23:00 Glucagon (Glucagen) 1 mg Q15M PRN IM DECREASED GLUCOSE; Start 01/07/19 at 23:00 Glucose (Glutose) 15 gm Q15M PRN BUCCAL DECREASED GLUCOSE; Start 01/07/19 at 23:00 Miscellaneous Information (Pending Santyl Order For Wound Care) This patient rodríguez... PRN PRN XX WOUND CARE; Start 01/08/19 at 01:00 Vancomycin HCl (Vanco Iv Per Pharmacy) VANCOMYCIN PER PHARMACY PER PROTOCOL XX ; Start 01/08/19 at 09:00 Piperacillin Sod/ Tazobactam Sod 50 ml @ 100 mls/hr Q6 IVPB Last administered on 01/08/19at 11:30; Admin Dose 100 MLS/HR; Start 01/08/19 at 10:00 Vancomycin/Sodium Chloride 250 ml @ 125 mls/hr Q24H IVPB ; Start 01/08/19 at 18:00 SHAILA FRIAS DPM Jan 08, 2019 12:34
--- NOTE | 2019-01-08 12:48 | CONS ---
DATE OF ADMISSION: 01/07/2019 DATE OF CONSULTATION: 01/08/2019 TYPE OF CONSULTATION: Nephrology. REASON FOR CONSULTATION: Chronic kidney disease, acute kidney injury. PHYSICIAN REQUESTING CONSULT: Ranjan Dorsey MD HISTORY OF PRESENT ILLNESS: This is a 53-year-old female with a past medical history of chronic kid kishan disease, history of hypertension, diabetes, history of asthma, who presents to [facility] with diarrhea for 5 days. The patient has a history of chronic left foot ulcer for which she has been getting IV antibiotics and debridement. The patient was most recently admitted in where she underwent debridement and was discharged home on IV antibiotics after . She now p resents to the Emergency Room complaining of multiple bouts of loose stool and diarrhea. In the [facility] Room, patient had an x-ray of the left foot which showed prominent erosive changes to the proxi mal base of the 5th phalanx, likely infectious. In the Emergency Room, the patient was given IV flui d, antibiotic therapy and admitted to med/surg for evaluation. In terms of patient's renal history, the patient has a history of chronic kidney disease, diabetic ne phropathy, nephrotic range proteinuria with a previous baseline creatinine of 11 mg/dL. On admission , the patient has a creatinine of 1.87 mg/dL. The patient denies any hemoptysis, hematemesis, hemato chezia. Denies any rashes. PAST MEDICAL HISTORY: History of CKD, history of diabetes, history of hypertension, history of dysli pidemia. PAST SURGICAL HISTORY: Status post multiple lower extremity foot debridement. FAMILY HISTORY: No family history of kidney disease. SOCIAL HISTORY: Does not drink, smoke or do drugs. MEDICATIONS: The patient's medications have been reviewed. ALLERGIES: Have been reviewed. No known drug allergies. REVIEW OF SYSTEMS: A 14-point review of systems was conducted, pertinent positives stated in HPI, ot herwise negative. PHYSICAL EXAMINATION: VITAL SIGNS: Blood pressure 166/82, respirations 16, pulse 82, temperature 97.8. HEENT: Head is normocephalic. NECK: Supple. HEART: Regular rate. LUNGS: Show diminished breath sounds at the base. ABDOMEN: Soft, nontender to palpation. No rebound or guarding. EXTREMITIES: Negative for clubbing, cyanosis, no edema on the right leg. The patient's left foot is covered with dressing which is clean, dry, intact. DERMATOLOGIC: No focal deficits. MUSCULOSKELETAL: No joint effusions. NEUROLOGIC: No focal deficits. MEDICATIONS: Have been reviewed. LABORATORY DATA: From 01/08/2019 has been reviewed. The patient has BUN 24, creatinine 1.83, bicarb dontrell 20. White count 7.9, hemoglobin 9.6, platelets of 294 IMAGING STUDIES: Have been reviewed. ASSESSMENT AND PLAN: This is a 53-year-old female who presents with: 1. Nonoliguric acute kidney injury on top of chronic kidney disease with previous baseline creatinin e around 1.0 - 1.2 mg/dL. Etiology of current acute kidney injury is unclear, possibly multifactoria l secondary to hemodynamics, questionable tubular injury due to nephrotoxicity and antibiotics, possi ble ASHLEY inhibitor effect. Plan at this point is to do a full evaluation. We will check UA with micr oanalysis, check urine electrolytes and quantify the patient's proteinuria. We will recommend adjust ing antibiotic therapy if possible. Would continue vancomycin in setting of acute kidney injury. Co ntinue gentle IV hydration. Would hold ASHLEY inhibitor. Otherwise, continue current treatment plan, s upportive care, renally dose all meds. 2. Chronic kidney disease secondary to diabetic nephropathy and nephrotic range proteinuria. The amadou marsh is currently in acute kidney injury as stated above. Will hold ASHLEY inhibitor, will re-quantify proteinuria. If renal function stabilizes, consider reintroducing ASHLEY inhibitor. Otherwise, contin ue disease factor modification, good glycemic and blood pressure control. 3. Anemia. Continue to monitor hemoglobin and hematocrit levels. 4. Mineral bone disorder, monitor calcium and phosphorus level. 5. Metabolic acidosis secondary to acute kidney injury. Continue to monitor. 6. Diarrhea, etiology may be due to recent antibiotic use, rule out Clostridium difficile, follow C. diff culture. Continue to monitor. 7. Chronic left foot wound, osteomyelitis. Continue current antibiotic management. Follow up with podiatry. 8. Hypertension. Continue blood pressure regimen. Hold ASHLEY inhibitor at this time. 9. Acute kidney injury. 10. Dyslipidemia. Continue statin therapy. 11. Diabetes. Continue current insulin regimen. 12. Hyponatremia secondary to hyperglycemia. Would expect to improve once euglycemia is obtained. Continue to monitor. Thank you, Dr. Dorsey for this interesting consult. It will be a pleasure to follow patient with you t hroughout the hospital course. Dictated By: RAYSHAWN FLOWERS/KELLY Conf#: [id number] DID#: [id number] CC: RANJAN DORSEY MD;*EndCC*
[2019-01-08 14:00] VITALS: BP 114/60; PULSE 72; RESP 16
[2019-01-08] MEDS ORDERED: DAKINS 0.0125%(1/40) 473 ML SOLUTION TP SCH (14:30)
--- NOTE | 2019-01-08 15:17 | CONS ---
DATE OF ADMISSION: 01/07/2019 DATE OF CONSULTATION: 01/08/2019 TYPE OF CONSULTATION: Infectious disease. REASON FOR CONSULTATION: Antibiotic management. HISTORY OF PRESENT ILLNESS: Misti Ibarra is a 53-year-old female who comes in with wounds t o bilateral heels, right worse than left. She is a 53-year-old diabetic female presenting with drain ing wounds of the left lateral foot. She also was having diarrhea and the dressing was soaked in bimal rrhea. She denies fever or chills, but has noted malodorous discharge from the lateral aspect of the left foot. She is not taking her diabetic medicines because her doctor is not giving them to her. PAST MEDICAL HISTORY: As outlined. She has left foot wound debridement in the past, skin graft, res piratory disorder. She has COPD, cardiac disorders, hypertension, hyperlipidemia, CHF, miscellaneous medical problems, diabetes mellitus. SOCIAL HISTORY: She does not smoke, drink or abuse drugs. ALLERGIES: NONE TO PENICILLIN, SULFA OR FOODS. MEDICATIONS: Per chart. REVIEW OF SYSTEMS: Noncontributory. PHYSICAL EXAMINATION: GENERAL: She is a cachectic-appearing female who is awake, responsive, in no acute distress. VITAL SIGNS: Stable. She is afebrile. SKIN: Without generalized rash. HEENT: Within normal limits. NECK: Supple. LYMPH NODES: None palpable. CHEST: Decreased breath sounds at the bases. HEART: Without murmur or gallop. ABDOMEN: Soft, nontender without organosplenomegaly or masses. EXTREMITIES: The dressing of the left foot was soaked in stool and feces in the emergency room. She has a wound to the lateral aspect of her foot that is draining purulent drainage, swelling and eryth brendan noted to the foot. HOSPITAL COURSE: Her white count on admission was 7000 with 69% polys or neutrophils, H and H of 10. 6 and 32.9, platelet count 353,000. BUN and creatinine 27/1.87, glucose of 517. The patient was sta rted on vancomycin and Zosyn. X-ray shows more prominent erosive changes to the base of the 5th prox imal phalanx and distal 5th metatarsal compared to prior studies, likely infectious, status post luis yandel of one fixation screw. Otherwise, the remainder of the study is unchanged. Today, white count i s 7.9. BUN and creatinine is 24/1.83. She has chronic left foot wound with osteomyelitis that looks like it is failing antibiotic therapy. She is noncompliant. She has diarrhea. Rule out Clostridiu m difficile, diabetes mellitus with suboptimal care, chronic renal disease with renal insufficiency, chronic hypochromic anemia, dyslipidemia, coronary artery disease, chronic depression. Continue bupr opion. IMPRESSION AND PLAN: We need to see what the first mate has to say. We may need an MRI of the left foot in addition. She is currently on her vancomycin and Zosyn. I will dictate my findings to the ospitalist. Dictated By: AARTI DELGADO MD, JD/NTS Conf#: [id number] DID#: [id number] CC: YUNIEL ESCOBAR MD; ERICKA CATHERINE MD;*End*
[2019-01-08] MEDS: COLLAGENASE 5 GM (UD JAR) TOP SCH (17:02)
[2019-01-08] MEDS: VANCOMYCIN 750 MG (PMX) 250 ML IVPB SCH (17:58)
[2019-01-08 20:00] VITALS: BP 152/72; PULSE 82; RESP 18
[2019-01-08] MEDS: ATORVASTATIN 40 MG TAB PO SCH (21:56)
[2019-01-08] MEDS: MONTELUKAST 10 MG TAB PO SCH (21:56)
[2019-01-09] MEDS: PIPER-TAZO 2.25 GM/NS 50 ML IVPB SCH ×3 (00:27→11:08)
[2019-01-09] MEDS: ACCU-CHEK XX SCH (02:00)
[2019-01-09 02:01] VITALS: BP 158/76; PULSE 78; RESP 18
[2019-01-09] MEDS: SUCRALFATE 1 GM TAB PO SCH ×4 (06:46→20:25)
[2019-01-09 08:00] VITALS: BP 179/86; PULSE 72; RESP 18
[2019-01-09] MEDS: INSULIN ASPART [NOVOLOG] 3 ML PEN SC SCH ×7 (08:00→20:27)
[2019-01-09] MEDS: COLLAGENASE 5 GM (UD JAR) TOP SCH ×2 (08:38→08:39)
[2019-01-09] MEDS: BUPROPION (SR) 150 MG TAB PO SCH ×2 (08:39→20:25)
[2019-01-09] MEDS: ASPIRIN 81 MG TAB PO SCH (08:39)
[2019-01-09] MEDS: CLOPIDOGREL 75 MG TAB PO SCH (08:39)
[2019-01-09] MEDS: FAMOTIDINE 20 MG TAB PO SCH (08:39)
[2019-01-09] MEDS: ASCORBIC ACID 500 MG TAB PO SCH (08:39)
[2019-01-09] MEDS: DAKINS 0.0125%(1/40) 473 ML SOLUTION TP SCH ×2 (08:41→19:04)
[2019-01-09] MEDS: HEPARIN 5,000 UNIT/1 ML VIAL SC SCH ×2 (08:41→20:24)
[2019-01-09] MEDS: AMLODIPINE 10 MG TAB PO SCH (08:42)
[2019-01-09] MEDS: ZINC SULFATE 220 MG CAP PO SCH (08:43)
[2019-01-09] MEDS: POLYETHYLENE GLYCOL 17 GM PACKET PO SCH ×2 (08:43→20:26)
--- NOTE | 2019-01-09 09:21 | PN ---
DATE: 01/09/2019 SUBJECTIVE: The patient is stable, no events overnight. OBJECTIVE: VITAL SIGNS: Blood pressure is 179/86, pulse 72, respirations 18, temperature 98.0. HEENT: Head is normocephalic. NECK: Supple. HEART: Regular rate. LUNGS: Show diminished breath sounds at the base. ABDOMEN: Soft, nontender to palpation without rebound or guarding. EXTREMITIES: Negative for clubbing, cyanosis, no edema. DERMATOLOGIC: No rashes. MUSCULOSKELETAL: No joint effusion. NEUROLOGIC: No change in exam. MEDICATIONS: Reviewed. LABORATORY DATA: Reviewed. ASSESSMENT AND PLAN: 1. Nonoliguric acute kidney injury on top of chronic kidney disease. Etiology of acute kidney injur y is secondary to hemodynamics, questionable ASHLEY inhibitor effect. The patient's urinalysis was revi ewed, shows evidence of pyuria. The patient has nephrotic range proteinuria. No significant change. The patient's renal function continues to decline. At this point, we would continue current treatm ent plans, supportive care, renally dose all medicines, continue to hold ASHLEY inhibitor at this time. 2. Coronary artery disease secondary to diabetic nephropathy with nephrotic range proteinuria. The patient is currently in acute kidney injury as stated above. Continue to hold ASHLEY inhibitor once génesis al function stabilized, would resume ASHLEY inhibitor. Otherwise, continue disease factor modification, renally dose all medicines. Continue good glycemic and blood pressure control. 3. Anemia. Monitor hemoglobin and hematocrit levels. 4. Mineral bone disorder. Monitor calcium and phosphorus levels. 5. Metabolic acidosis secondary to acute kidney injury. Continue to monitor. 6. Diarrhea secondary to C. difficile. Continue current antibiotic regimen. 7. Chronic left foot osteomyelitis. Continue current antibiotic regimen. 8. Hypertension. Continue current blood pressure regimen, holding ASHLEY inhibitor at this time. 9. Dyslipidemia. Continue statin therapy. 10. Diabetes. Continue current insulin regimen. 11. Hypernatremia, improved. Dictated By: RAYSHAWN FULLER DO NR/NTS Conf#: [id number] DID#: [id number] CC: YUNIEL ESCOBAR MD; DIGNA ANDRADE MD;*EndCC*
[2019-01-09 13:20] VITALS: BP 140/72; PULSE 70; RESP 17
[2019-01-09] MEDS: metroNIDAZOLE 500 MG/NS (PMX) 100 ML IVPB SCH ×2 (13:27→21:56)
--- NOTE | 2019-01-09 14:14 | PN ---
Date/Time of Note Date/Time of Note DATE: 01/09/19 TIME: 14:14 Objective Vitals Vital Signs Date Temp Pulse Resp B/P (MAP) Pulse Ox O2 O2 Flow FiO2 Time Delivery Rate 01/09/19 98.0 70 17 140/72 97 Room Air 13:20 (94) Intake and Output 01/08/19 01/08/19 01/09/19 1414:59 22:59 06:59 IntakeIntake Total 550 ml 600 ml 725 ml BalanceBalance 550 ml 600 ml 725 ml Results Result Diagram: 01/09/19 0502 01/09/19 0502 Medications Medications Current Medications IV Flush (NS 3 ml) 3 ml PER PROTOCOL IV ; Start 01/07/19 at 22:30 Ondansetron HCl (Zofran Inj) 4 mg Q6H PRN IV NAUSEA/VOMITING; Start 01/07/19 at 22:30 Acetaminophen (Tylenol Tab) 650 mg Q6H PRN PO .PAIN 1-3 OR TEMP; Start 01/07/19 at 22:30 Acetaminophen/ Hydrocodone Bitart ([place] (5/325)) 1 tab Q6H PRN PO .MOD PAIN 4- 6; Start 01/07/19 at 22:30 Acetaminophen/ Hydrocodone Bitart ([place] (5/325)) 2 tab Q6H PRN PO .SEVERE PAIN 7-10 Last administered on 01/07/19at 23:53; Admin Dose 2 TAB; Start 01/07/19 at 22:30 Heparin Sodium (Porcine) (Heparin (5000 Units/1ml)) 5,000 unit Q12 SC Last administered on 01/09/19at 08:41; Admin Dose 5,000 UNIT; Start 01/08/19 at 09:00 Amlodipine Besylate (Norvasc) 10 mg DAILY PO Last administered on 01/09/19at 0 8:42; Admin Dose 10 MG; Start 01/08/19 at 09:00 Ascorbic Acid (Vitamin C) 500 mg DAILY PO Last administered on 01/09/19at 08:39; Admin Dose 500 MG; Start 01/08/19 at 09:00 Aspirin (Aspirin) 81 mg DAILY PO Last administered on 01/09/19at 08:39; Admin Dose 81 MG; Start 01/08/19 at 09:00 Atorvastatin Calcium (Lipitor) 40 mg HS PO Last administered on 01/08/19 21:56; Admin Dose 40 MG; Start 01/08/19 at 21:00 Bupropion HCl (Wellbutrin Sr) 150 mg BID PO Last administered on 01/09/19 08:39; Admin Dose 150 MG; Start 01/07/19 at 22:30 Carvedilol (Coreg) 12.5 mg BID PO Last administered on 01/09/19 08:40; Admin Dose 12.5 MG; Start 01/08/19 at 09:00 Clopidogrel Bisulfate (plaVIX) 75 mg DAILY PO Last administered on 01/09/19 08:39; Admin Dose 75 MG; Start 01/08/19 at 09:00 Famotidine (Pepcid) 20 mg DAILY PO Last administered on 01/09/19 08:39; Admin Dose 20 MG; Start 01/08/19 at 09:00 Hydralazine HCl (Apresoline) 75 mg TID PO Last administered on 01/09/19 13:21; Admin Dose 75 MG; Start 01/08/19 at 09:00 Insulin Aspart (Novolog Insulin Pen) 8 unit WITH MEALS SC Last administered on 01/09/19 11:51; Admin Dose 8 UNIT; Start 01/08/19 at 07:35 Insulin Glargine (Lantus) 24 units QHS SC Last administered on 01/08/19 21:59; Admin Dose 24 UNITS; Start 01/07/19 at 22:30 Lisinopril (Zestril) 20 mg DAILY PO Last administered on 01/08/19 09:36; Admin Dose 20 MG; Start 01/08/19 at 09:00; Status Hold Montelukast Sodium (Singulair) 10 mg HS PO Last administered on 01/08/19 21:56; Admin Dose 10 MG; Start 01/08/19 at 21:00 Ondansetron HCl (Zofran Tab) 4 mg Q6H PRN PO NAUSEA AND/OR VOMITING; Start 01/07/19 at 22:30 Polyethylene Glycol (Miralax) 17 gm BID PO Last administered on 01/08/19 22:05; Admin Dose 17 GM; Start 01/08/19 at 09:00 Sucralfate (Carafate) 1 gm AC MEALS AND BEDTIME PO Last administered on 01/09/19at 11:08; Admin Dose 1 GM; Start 01/08/19 at 07:00 Zinc Sulfate (Zinc Sulfate) 220 mg DAILY PO Last administered on 01/09/19at 08:43; Admin Dose 220 MG; Start 01/08/19 at 09:00 Diagnostic Test (Pha) (Accu-Chek) 1 ea 02 XX Last administered on 01/08/19at 02:40; Admin Dose 1 EA; Start 01/08/19 at 02:00 Insulin Aspart (Novolog Insulin Pen) NOVOLOG *MODERATE* ALGORITHM WITH MEALS BEDTIME SC Last administered on 01/08/19at 11:41; Admin Dose 4 UNIT; Start 01/08 at 08:00 Miscellaneous Information 1 ea NOTE XX ; Start 01/07/19 at 23:00 Glucose (Glutose) 15 gm Q15M PRN PO DECREASED GLUCOSE; Start 01/07/19 at 23:00 Glucose (Glutose) 22.5 gm Q15M PRN PO DECREASED GLUCOSE; Start 01/07/19 at 23:00 Dextrose (D50w Syringe) 25 ml Q15M PRN IV DECREASED GLUCOSE; Start 01/07/19 at 23:00 Dextrose (D50w Syringe) 50 ml Q15M PRN IV DECREASED GLUCOSE; Start 01/07/19 at 23:00 Glucagon (Glucagen) 1 mg Q15M PRN IM DECREASED GLUCOSE; Start 01/07/19 at 23:00 Glucose (Glutose) 15 gm Q15M PRN BUCCAL DECREASED GLUCOSE; Start 01/07/19 at 23:00 Miscellaneous Information (Pending Santyl Order For Wound Care) This patient rodríguez... PRN PRN XX WOUND CARE; Start 01/08/19 at 01:00 Vancomycin HCl (Vanco Iv Per Pharmacy) VANCOMYCIN PER PHARMACY PER PROTOCOL XX ; Start 01/08/19 at 09:00 Vancomycin/Sodium Chloride 250 ml @ 125 mls/hr Q24H IVPB Last administered on 01/08/19at 17:58; Admin Dose 125 MLS/HR; Start 01/08/19 at 18:00 Collagenase (Santyl) 1 applic DAILY TOP Last administered on 01/09/19at 08:38; Admin Dose 1 APPLIC; Start 01/08/19 at 13:30 Sodium Hypochlorite (Dakins Diluted (1/40)) 1 applic DAILY TP Last administered on 01/09/19at 08:41; Admin Dose 1 APPLIC; Start 01/09/19 at 09:00 Collagenase (Santyl) 1 applic DAILY TOP Last administered on 01/09/19at 08:39; Admin Dose 1 APPLIC; Start 01/09/19 at 09:00 Metronidazole 100 ml @ 100 mls/hr Q8 IVPB Last administered on 01/09/19at 13:27; Admin Dose 100 MLS/HR; Start 01/09/19 at 14:00 Miscellaneous Information (*Rx Drug Level Order Reminder*) VANCO TROUGH ON @ 700 1700 ONCE XX ; Start 01/09/19 at 17:00; Stop 01/09/19 at 17:01 Aztreonam 50 ml @ 100 mls/hr Q12H IVPB ; Start 01/09/19 at 18:00 VTE Prophylaxis Risk score (from Ns)>0 risk: 5 SCD applied (from [facility] [place]): Yes Lines/Catheters IV Catheter Type: Butcher in Place: No Assessment/Plan Hospital Course Subjective Patient doing well, still having many bowel movements, otherwise comfortable Objective Physical exam General: Patient is laying in bed and answers questions appropriately Mentation: Patient is alert and oriented 4, Head: Normocephalic atraumatic Eyes: EOMI, pupils reactive to light Neck: Supple, nontender, midline Respiratory: Clear to auscultation bilaterally Cardiovascular: regular rate, no obvious murmurs Gastrointestinal: non-tender to palpation, bowel sounds heard. Neurological: Moves all extremities spontaneously Skin: Left foot wound, bandaged Assessment and plan Chronic left foot wound with osteomyelitis -Patient left AMA from long-term facility a proximally 1 week ago has not been getting antibiotics since -We will restart patient on previous antibiotic of Vanco and aztreonam as patient was growing sent resistant to cefepime -ID on board as well as podiatry C. difficile colitis -C. difficile positive -Flagyl started X-infectious disease consulted Diabetes mellitus -Insulin and adjust as needed Acute kidney injury on chronic kidney disease -Nephrology on board -Renally dose all medications Anemia -Monitor, transfuse as needed This lipidemia -Continue statin Coronary artery disease on Plavix -Continue home meds Chronic depression -Continue home meds Disposition -Continue IV Flagyl for C. difficile colitis, will need ID and podiatry recommendations for further care, patient will likely need to be arranged with home health IV antibiotics once stable. DIGNA ANDRADE Jan 09, 2019 14:14
--- NOTE | 2019-01-09 16:34 | CONS ---
Assessment/Plan Assessment/Plan Hospital Course (Demo Recall) ID PROGRESS NOTE CURRENT ABX: DAY # => Vanco IV + Azactam + Flagyl IV s/p Cefepime s/p Zosyn 01/09/19 0502 01/09/19 0502 24H INTERVAL SUMMARY * A/A/O, responsive, somewhat flat affect, no fevers, VSS, NAD -- patient is well known to Dr. Goncalves's ID team consultants from multiple prior admissions. * Multiple loose stools -- started on IV Flagyl, will add Vanco Liquid PO -- pt has hx of emesis due to gastroparesis, at times difficult to tolerate PO Meds -- we will monitor. DIAGNOSTIC IMAGING * 01/07/19 LEFT FOOT XR: IMPRESSION: More prominent erosive changes to the base of the fifth proximal phalanx and the distal fifth metatarsal compared to pr ior study, likely infectious. Status post removal of one midfoot fixation screw. Otherwise, the remainder of the study is unchanged. MICRO/OTHER * * 01/08/19 LEFT FOOT WOUND CX: WOUND CULTURE Preliminary Organism 1 PSEUDOMONAS SPECIES QUANTITY 2+ * 01/07/19 BCx (-) * 01/07/19: Stool (+)C.Diff C DIFFICILE DNA AMPLIFICATION Final CYTOTOXIGENIC C DIFFICILE POSITIVE (Ref Range Neg) ````````````````````````````````````````````````````````````````````````` ```````` * PRIOR ADMISSION MICRO * 11/13/18 LEFT FOOT WOUND CX: TISSUE (BIOPSY) CULTURE Final Organism 1 PSEUDOMONAS AERUGINOSA QUANTITY 3+ P.AERUG P.AERUG M.I.C. RX M.I.C. RX --------- --- --------- --- AMIKACIN <=2 S AZTREONAM S CEFEPIME 16 I CEFTAZIDIME >=64 R CIPROFLOXACIN >=4 R GENTAMICIN <=1 S LEVOFLOXACIN >=8 R MEROPENEM 3 S TOBRAMYCIN <=1 S PIPERACILLIN/TAZOBACTAM R PHYSICAL EXAMINATION: GENERAL: VSSCORKY HEENT: AT, NC, anicteric NECK: Supple, CHEST: Equal chest rise bilaterally, without dyspnea on observation HEART: Pulse RRR ABDOMEN: Soft / NT EXTREMITIES: Warm, dry / LEFT FOOT DSG C/D/I SKIN: No rash, no diaphoresis ID ASSESSMENT 53 yo F admit with: SIRS w/ESR 46 & CRP 4.7 w/hyperglycemia early DKA => due to acute/chronic infection Complex acute on chronic Left foot infection with: * Diabetic ulcer * Diabetic microvascular disease * Charcot neuroarthropathy * Osteomyelitis -> s/p multiple dbridements w/flap repair & tissue/bone bx 11/13/18 => TISSUE CX (+) PSAR * Hx of (+)MRSA Osteomyelitis left foot --> s/p 8 weeks ABX JUL 2018 == w/repeat tissue cx (-) MRSA DM2 with polyneuropathies * DM peripheral neuropathy * DM autonomic dysreflexia * DM gastroparesis w/hx of recurrent emesis + ABD pain PAD C.Difficile Colitis -- ABX associated recurrent infection Hypoalbuminemia Essential HTN w/hx of HTN urgency CKD Anemia of chronic disease and iron deficiency Hx of Left upper extremity thrombus w/edema Hypercoagulable state Hx of COPD-Asthma = asymptomatic Hx of OPIOID INDUCED CONSTIPATION * Hx of vasovagal episode in setting of opioid constipation while attempting to pass stool on commode Hx of CAD and Hx of HF -- stable Hx of recurrent GNR UTI: s/p Pseudomonas and E. coli UTI = S/P TREATED Hx of transaminitis secondary to Daptomycin Depression due to medical condition (-)MRSA Nares on 11/13/18 ABX ALLERGIES: NKDA INVASIVES: PICC ->Right upper extremity PICC line, present on admission CURRENT ABX: => Vanco IV + Azactam + Flagyl IV ID RECOMMENDATIONS/PLAN: 1. Add Vanco 250 mg po Q6H for C.Diff coverage, continue Flagyl IV -- pt has hx of emesis due to gastroparesis, at times difficult to tolerate PO Meds -- we will monitor 2. Increase Azactam to Q8H dose due to persistent PSAR infection 3. Anticipate DC Vanco IV if repeat wound Cx (-) for GP pathogens. . Consultation Date/Type/Reason Admit Date/Time Jan 07, 2019 at 21:39 Initial Consult Date Date/Time of Note DATE: 01/09/19 TIME: 16:33 Exam/Review of Systems Exam Vitals Vital Signs Date Temp Pulse Resp B/P (MAP) Pulse Ox O2 O2 Flow FiO2 Time Delivery Rate 01/09/19 98.0 70 17 140/72 97 Room Air 13:20 (94) Intake and Output 01/08/19 01/08/19 01/09/19 1515:00 23:00 07:00 IntakeIntake Total 550 ml 700 ml 625 ml BalanceBalance 550 ml 700 ml 625 ml Results Result Diagram: 01/09/19 0502 01/09/19 0502 Results 24hrs Laboratory Tests Test 01/08/19 17:10 01/08/19 21:55 01/09/19 00:30 01/09/19 05:01 Bedside Glucose 73 134 Urine Color YELLOW Urine Clarity CLOUDY A Urine pH 5.0 Urine Specific 1.012 [place] Urine Ketones NEGATIVE Urine Nitrite POSITIVE A Urine Bilirubin NEGATIVE Urine Urobilinogen NEGATIVE Urine Leukocyte 1+ H Esterase Urine Microscopic 5 RBC Urine Microscopic 39 H WBC Urine Squamous FEW Epithelial Cells Urine Bacteria FEW A Urine Mucus FEW A Urine Hemoglobin NEGATIVE Urine Random 40.62 Creatinine Urine Random Sodium 67 Urine Glucose 2+ H Urine Total Protein 241.0 H Iron Level 75 Total Iron Binding 172 L Capacity Percent Iron 44 Saturation Test 01/09/19 05:02 01/09/19 08:05 01/09/19 08:26 01/09/19 11:48 White Blood Count 6.8 Red Blood Count 3.40 L Hemoglobin 9.2 L Hematocrit 28.7 L Mean Corpuscular 84.4 Volume Mean Corpuscular 27.1 L Hemoglobin Mean Corpuscular 32.1 Hemoglobin Concent Red Cell 13.9 Distribution Width Platelet Count 315 Mean Platelet Volume 10.7 H Immature 0.600 H Granulocytes % Neutrophils % 68.2 Lymphocytes % 20.9 Monocytes % 7.9 Eosinophils % 1.8 Basophils % 0.6 Nucleated Red Blood 0.0 Cells % Immature 0.040 H Granulocytes # Neutrophils # 4.7 Lymphocytes # 1.4 Monocytes # 0.5 Eosinophils # 0.1 Basophils # 0.0 Nucleated Red Blood 0.0 Cells # Sodium Level 139 Potassium Level 3.6 Chloride Level 111 H Carbon Dioxide Level 20 L Anion Gap 8 Blood Urea Nitrogen 25 H Creatinine 2.01 H Est Glomerular 26 L Filtrat Rate mL/min Glucose Level 71 # Calcium Level 8.6 Phosphorus Level 4.8 Magnesium Level 1.9 Bedside Glucose 74 86 121 Medications Medication Current Medications IV Flush (NS 3 ml) 3 ml PER PROTOCOL IV ; Start 01/07/19 at 22:30 Ondansetron HCl (Zofran Inj) 4 mg Q6H PRN IV NAUSEA/VOMITING; Start 01/07/19 at 22:30 Acetaminophen (Tylenol Tab) 650 mg Q6H PRN PO .PAIN 1-3 OR TEMP; Start 01/07/19 at 22:30 Acetaminophen/ Hydrocodone Bitart ([place] (5/325)) 1 tab Q6H PRN PO .MOD PAIN 4- 6; Start 01/07/19 at 22:30 Acetaminophen/ Hydrocodone Bitart ([place] (5/325)) 2 tab Q6H PRN PO .SEVERE PAIN 7-10 Last administered on 01/07/19at 23:53; Admin Dose 2 TAB; Start 01/07/19 at 22:30 Heparin Sodium (Porcine) (Heparin (5000 Units/1ml)) 5,000 unit Q12 SC Last a dministered on 01/09/19at 08:41; Admin Dose 5,000 UNIT; Start 01/08/19 at 09:00 Amlodipine Besylate (Norvasc) 10 mg DAILY PO Last administered on 01/09/19 08:42; Admin Dose 10 MG; Start 01/08/19 at 09:00 Ascorbic Acid (Vitamin C) 500 mg DAILY PO Last administered on 01/09/19 08:39; Admin Dose 500 MG; Start 01/08/19 at 09:00 Aspirin (Aspirin) 81 mg DAILY PO Last administered on 01/09/19at 08:39; Admin Dose 81 MG; Start 01/08/19 at 09:00 Atorvastatin Calcium (Lipitor) 40 mg HS PO Last administered on 01/08/19at 21:56; Admin Dose 40 MG; Start 01/08/19 at 21:00 Bupropion HCl (Wellbutrin Sr) 150 mg BID PO Last administered on 01/09/19 08:39; Admin Dose 150 MG; Start 01/07/19 at 22:30 Carvedilol (Coreg) 12.5 mg BID PO Last administered on 01/09/19 08:40; Admin Dose 12.5 MG; Start 01/08/19 at 09:00 Clopidogrel Bisulfate (plaVIX) 75 mg DAILY PO Last administered on 01/09/19 08:39; Admin Dose 75 MG; Start 01/08/19 at 09:00 Famotidine (Pepcid) 20 mg DAILY PO Last administered on 01/09/19 08:39; Admin Dose 20 MG; Start 01/08/19 at 09:00 Hydralazine HCl (Apresoline) 75 mg TID PO Last administered on 01/09/19 13:21; Admin Dose 75 MG; Start 01/08/19 at 09:00 Insulin Aspart (Novolog Insulin Pen) 8 unit WITH MEALS SC Last administered on 01/09/19 11:51; Admin Dose 8 UNIT; Start 01/08/19 at 07:35 Insulin Glargine (Lantus) 24 units QHS SC Last administered on 01/08/19 21:59; Admin Dose 24 UNITS; Start 01/07/19 at 22:30 Lisinopril (Zestril) 20 mg DAILY PO Last administered on 01/08/19 09:36; Admin Dose 20 MG; Start 01/08/19 at 09:00; Status Hold Montelukast Sodium (Singulair) 10 mg HS PO Last administered on 01/08/19 21:56; Admin Dose 10 MG; Start 01/08/19 at 21:00 Ondansetron HCl (Zofran Tab) 4 mg Q6H PRN PO NAUSEA AND/OR VOMITING; Start 01/07/19 at 22:30 Polyethylene Glycol (Miralax) 17 gm BID PO Last administered on 01/08/19 22:05; Admin Dose 17 GM; Start 01/08/19 at 09:00 Sucralfate (Carafate) 1 gm AC MEALS AND BEDTIME PO Last administered on 01/09/19 11:08; Admin Dose 1 GM; Start 01/08/19 at 07:00 Zinc Sulfate (Zinc Sulfate) 220 mg DAILY PO Last administered on 01/09/19at 08:43; Admin Dose 220 MG; Start 01/08/19 at 09:00 Diagnostic Test (Pha) (Accu-Chek) 1 ea 02 XX Last administered on 01/08/19at 02:40; Admin Dose 1 EA; Start 01/08/19 at 02:00 Insulin Aspart (Novolog Insulin Pen) NOVOLOG *MODERATE* ALGORITHM WITH MEALS BEDTIME SC Last administered on 01/08/19at 11:41; Admin Dose 4 UNIT; Start 01/08/19 at 08:00 Miscellaneous Information 1 ea NOTE XX ; Start 01/07/19 at 23:00 Glucose (Glutose) 15 gm Q15M PRN PO DECREASED GLUCOSE; Start 01/07/19 at 23:00 Glucose (Glutose) 22.5 gm Q15M PRN PO DECREASED GLUCOSE; Start 01/07/19 at 23:00 Dextrose (D50w Syringe) 25 ml Q15M PRN IV DECREASED GLUCOSE; Start 01/07/19 at 23:00 Dextrose (D50w Syringe) 50 ml Q15M PRN IV DECREASED GLUCOSE; Start 01/07/19 at 23:00 Glucagon (Glucagen) 1 mg Q15M PRN IM DECREASED GLUCOSE; Start 01/07/19 at 23:00 Glucose (Glutose) 15 gm Q15M PRN BUCCAL DECREASED GLUCOSE; Start 01/07/19 at 23:00 Miscellaneous Information (Pending Santyl Order For Wound Care) This patient rodríguez... PRN PRN XX WOUND CARE; Start 01/08/19 at 01:00 Vancomycin HCl (Vanco Iv Per Pharmacy) VANCOMYCIN PER PHARMACY PER PROTOCOL XX ; Start 01/08/19 at 09:00 Vancomycin/Sodium Chloride 250 ml @ 125 mls/hr Q24H IVPB Last administered on 01/08/19at 17:58; Admin Dose 125 MLS/HR; Start 01/08/19 at 18:00 Collagenase (Santyl) 1 applic DAILY TOP Last administered on 01/09/19at 08:38; Admin Dose 1 APPLIC; Start 01/08/19 at 13:30 Sodium Hypochlorite (Dakins Diluted ()) 1 applic DAILY TP Last administered on 01/09/19at 08:41; Admin Dose 1 APPLIC; Start 01/09/19 at 09:00 Collagenase (Santyl) 1 applic DAILY TOP Last administered on 01/09/19at 08:39; Admin Dose 1 APPLIC; Start 01/09/19 at 09:00 Metronidazole 100 ml @ 100 mls/hr Q8 IVPB Last administered on 01/09/19at 13:27; Admin Dose 100 MLS/HR; Start 01/09/19 at 14:00 Miscellaneous Information (*Rx Drug Level Order Reminder*) VANCO TROUGH ON @ 700 1700 ONCE XX ; Start 01/09/19 at 17:00; Stop 01/09/19 at 17:01 Aztreonam 50 ml @ 100 mls/hr Q12H IVPB ; Start 01/09/19 at 18:00 BRENT HERRERA [employer] Jan 09, 2019 16:34
[2019-01-09] MEDS ORDERED: AZTREONAM 1 GM/NS (PMX) 50 ML IVPB SCH (18:00)
[2019-01-09] MEDS ORDERED: CEFEPIME 1GM/50 ML (PMX) 50 ML IVPB SCH (18:00)
[2019-01-09] MEDS: VANCOMYCIN 750 MG (PMX) 250 ML IVPB SCH (18:32)
[2019-01-09 20:05] VITALS: BP 161/78; PULSE 75; RESP 18
[2019-01-09] MEDS: INSULIN GLARGINE [LANTus] (100 UNITS/ML) SYG SC SCH (20:24)
[2019-01-09] MEDS: MONTELUKAST 10 MG TAB PO SCH (20:25)
[2019-01-09] MEDS: ATORVASTATIN 40 MG TAB PO SCH (20:25)
[2019-01-09] MEDS ORDERED: GENTAMICIN 0.1% 15 GM OINT TOP SCH (21:00)
[2019-01-09 21:30] VITALS: BP 142/78; PULSE 70
[2019-01-09] MEDS: GENTAMICIN 0.1% CREAM 15GM TUBE TOP SCH (21:57)
[2019-01-10] MEDS: VANCOMYCIN HCL 250 MG/5ML POSYG PO SCH ×4 (00:24→17:24)
[2019-01-10] MEDS: AZTREONAM 1 GM/NS (PMX) 50 ML IVPB SCH ×2 (01:17→10:40)
[2019-01-10] MEDS: HYDROCODONE/APAP (5/325) TAB PO PRN (01:26)
[2019-01-10] MEDS: ACCU-CHEK XX SCH (01:35)
[2019-01-10 02:00] VITALS: BP 167/81; PULSE 69; RESP 18
[2019-01-10] MEDS ORDERED: hydrALAzine 20 MG INJ IV ONE (02:00)
[2019-01-10 02:55] VITALS: BP 119/63; PULSE 70; RESP 18
[2019-01-10] MEDS: metroNIDAZOLE 500 MG/NS (PMX) 100 ML IVPB SCH ×3 (05:29→21:08)
[2019-01-10 07:55] VITALS: BP 135/72; PULSE 67; RESP 18
[2019-01-10] MEDS: INSULIN ASPART [NOVOLOG] 3 ML PEN SC SCH ×7 (08:00→21:00)
[2019-01-10] MEDS: SUCRALFATE 1 GM TAB PO SCH ×4 (08:11→21:08)
[2019-01-10] MEDS: ASCORBIC ACID 500 MG TAB PO SCH (08:16)
[2019-01-10] MEDS: CLOPIDOGREL 75 MG TAB PO SCH (08:17)
[2019-01-10] MEDS: BUPROPION (SR) 150 MG TAB PO SCH ×2 (08:17→21:08)
[2019-01-10] MEDS: AMLODIPINE 10 MG TAB PO SCH (08:17)
[2019-01-10] MEDS: POLYETHYLENE GLYCOL 17 GM PACKET PO SCH ×2 (08:18→21:00)
[2019-01-10] MEDS: ASPIRIN 81 MG TAB PO SCH (08:18)
[2019-01-10] MEDS: FAMOTIDINE 20 MG TAB PO SCH (08:18)
--- NOTE | 2019-01-10 08:54 | PN ---
DATE: 01/10/2019 SUBJECTIVE: The patient is stable. No events overnight. OBJECTIVE: VITAL SIGNS: Blood pressure is 135/72, respirations 18, pulse 67, temperature 97.8. HEENT: Head is normocephalic. NECK: Supple. HEART: Regular rate. LUNGS: Show diminished breath sounds at the base. ABDOMEN: Soft, nontender to palpation. No rebound or guarding. EXTREMITIES: Negative for clubbing, cyanosis, no edema, positive wound noted. NEUROLOGIC: No change in exam. MUSCULOSKELETAL: No joint effusion. MEDICATIONS: Reviewed. LABORATORY DATA: Reviewed. Creatinine is noted to be at 1.72. ASSESSMENT AND PLAN: 1. Nonoliguric acute kidney injury on top of chronic kidney disease with previous baseline creatinin e of around 1.0 to 1.5 mg/dL. Etiology of acute kidney injury is secondary to hemodynamics. The alphonse baires's renal function is slowly improving. Continue current treatment plans, supportive care, renall y dose all medicines. 2. Chronic kidney disease secondary to diabetic nephropathy with nephrotic range proteinuria. The jossue retana is currently in acute kidney injury as stated above. If renal function remains stable, we wou ld resume ASHLEY inhibitor. Otherwise, continue disease factor modification and good glycemic and blood pressure control. 3. Anemia. Monitor hemoglobin and hematocrit levels. 4. Mineral bone disorder, monitor calcium and phosphorus levels. 5. Metabolic acidosis secondary to acute kidney injury. Continue to monitor. 6. Diarrhea secondary C. difficile. Continue current treatment plan. Continue oral vancomycin. 7. Left foot osteomyelitis. Continue current antibiotic therapy. 8. Hypertension. Continue current blood pressure regimen. 9. Dyslipidemia. Continue statin therapy. 10. Diabetes. Continue current insulin regimen. 11. Hypernatremia, improved. Dictated By: RAYSHAWN FULLER DO NR/NTS Conf#: [id number] DID#: [id number] CC: YUNIEL ESCOBAR MD; DIGNA ANDRADE MD;*EndCC*
[2019-01-10] MEDS: DAKINS 0.0125%(1/40) 473 ML SOLUTION TP SCH ×2 (10:41)
[2019-01-10] MEDS: COLLAGENASE 5 GM (UD JAR) TOP SCH ×2 (10:42)
[2019-01-10] MEDS: GENTAMICIN 0.1% CREAM 15GM TUBE TOP SCH ×3 (10:43→21:36)
[2019-01-10] MEDS: HEPARIN 5,000 UNIT/1 ML VIAL SC SCH ×2 (10:44→21:11)
[2019-01-10] MEDS: ZINC SULFATE 220 MG CAP PO SCH (10:46)
[2019-01-10 14:00] VITALS: BP 119/64; PULSE 70; RESP 18
--- NOTE | 2019-01-10 14:46 | PN ---
Date/Time of Note Date/Time of Note DATE: 01/10/19 TIME: 14:41 Objective Vitals Vital Signs Date Temp Pulse Resp B/P (MAP) Pulse Ox O2 O2 Flow FiO2 Time Delivery Rate 01/10/19 97.8 67 18 135/72 97 Room Air 07:55 (93) Intake and Output 01/09/19 01/09/19 01/10/19 1515:00 23:00 07:00 IntakeIntake Total 390 ml 1000 ml 1045 ml OutputOutput Total 800 ml 575 ml BalanceBalance 390 ml 200 ml 470 ml Results Result Diagram: 01/10/1961901/10/19619 Medications Medications Current Medications IV Flush (NS 3 ml) 3 ml PER PROTOCOL IV ; Start 01/07/19 at 22:30 Ondansetron HCl (Zofran Inj) 4 mg Q6H PRN IV NAUSEA/VOMITING; Start 01/07/19 at 22:30 Acetaminophen (Tylenol Tab) 650 mg Q6H PRN PO .PAIN 1-3 OR TEMP; Start 01/07/19 at 22:30 Acetaminophen/ Hydrocodone Bitart ([place] (5/325)) 1 tab Q6H PRN PO .MOD PAIN 4- 6; Start 01/07/19 at 22:30 Acetaminophen/ Hydrocodone Bitart ([place] (5/325)) 2 tab Q6H PRN PO .SEVERE PAIN 7-10 Last administered on 01/10/19at 01:26; Admin Dose 2 TAB; Start 01/07/19 at 22:30 Heparin Sodium (Porcine) (Heparin (5000 Units/1ml)) 5,000 unit Q12 SC Last administered on 01/10/19at 10:44; Admin Dose 5,000 UNIT; Start 01/08/19 at 09:00 Amlodipine Besylate (Norvasc) 10 mg DAILY PO Last administered on 01/10/19at 08:17; Admin Dose 10 MG; Start 01/08/19 at 09:00 Ascorbic Acid (Vitamin C) 500 mg DAILY PO Last administered on 01/10/19at 08:16; Admin Dose 500 MG; Start 01/08/19 at 09:00 Aspirin (Aspirin) 81 mg DAILY PO Last administered on 01/10/19at 08:18; Admin Dose 81 MG; Start 01/08/19 at 09:00 Atorvastatin Calcium (Lipitor) 40 mg HS PO Last administered on 01/09/19 20:25; Admin Dose 40 MG; Start 01/08/19 at 21:00 Bupropion HCl (Wellbutrin Sr) 150 mg BID PO Last administered on 01/10/19 08:17; Admin Dose 150 MG; Start 01/07/19 at 22:30 Carvedilol (Coreg) 12.5 mg BID PO Last administered on 01/10/19 08:18; Admin Dose 12.5 MG; Start 01/08/19 at 09:00 Clopidogrel Bisulfate (plaVIX) 75 mg DAILY PO Last administered on 01/10/19 08:17; Admin Dose 75 MG; Start 01/08/19 at 09:00 Famotidine (Pepcid) 20 mg DAILY PO Last administered on 01/10/19 08:18; Admin Dose 20 MG; Start 01/08/19 at 09:00 Hydralazine HCl (Apresoline) 75 mg TID PO Last administered on 01/10/19 10:39; Admin Dose 75 MG; Start 01/08/19 at 09:00 Lisinopril (Zestril) 20 mg DAILY PO Last administered on 01/08/19 09:36; Admin Dose 20 MG; Start 01/08/19 at 09:00; Status Hold Montelukast Sodium (Singulair) 10 mg HS PO Last administered on 01/09/19 20:25; Admin Dose 10 MG; Start 01/08/19 at 21:00 Ondansetron HCl (Zofran Tab) 4 mg Q6H PRN PO NAUSEA AND/OR VOMITING; Start 01/07/19 at 22:30 Polyethylene Glycol (Miralax) 17 gm BID PO Last administered on 01/08/19 22:05; Admin Dose 17 GM; Start 01/08/19 at 09:00 Sucralfate (Carafate) 1 gm AC MEALS AND BEDTIME PO Last administered on 10:39; Admin Dose 1 GM; Start 01/08/19 at 07:00 Zinc Sulfate (Zinc Sulfate) 220 mg DAILY PO Last administered on 01/10/19 10:46; Admin Dose 220 MG; Start 01/08/19 at 09:00 Diagnostic Test (Pha) (Accu-Chek) 1 ea 02 XX Last administered on 01/08/19at 02:40; Admin Dose 1 EA; Start 01/08/19 at 02:00 Insulin Aspart (Novolog Insulin Pen) NOVOLOG *MODERATE* ALGORITHM WITH MEALS BEDTIME SC Last administered on 01/08/19at 11:41; Admin Dose 4 UNIT; Start 01/08/19 at 08:00 Miscellaneous Information 1 ea NOTE XX ; Start 01/07/19 at 23:00 Glucose (Glutose) 15 gm Q15M PRN PO DECREASED GLUCOSE; Start 01/07/19 at 23:00 Glucose (Glutose) 22.5 gm Q15M PRN PO DECREASED GLUCOSE; Start 01/07/19 at 2 3:00 Dextrose (D50w Syringe) 25 ml Q15M PRN IV DECREASED GLUCOSE; Start 01/07/19 at 23:00 Dextrose (D50w Syringe) 50 ml Q15M PRN IV DECREASED GLUCOSE; Start 01/07/19 at 23:00 Glucagon (Glucagen) 1 mg Q15M PRN IM DECREASED GLUCOSE; Start 01/07/19 at 23:00 Glucose (Glutose) 15 gm Q15M PRN BUCCAL DECREASED GLUCOSE; Start 01/07/19 at 23:00 Miscellaneous Information (Pending Santyl Order For Wound Care) This patient rodríguez... PRN PRN XX WOUND CARE; Start 01/08/19 at 01:00 Vancomycin HCl (Vanco Iv Per Pharmacy) VANCOMYCIN PER PHARMACY PER PROTOCOL XX ; Start 01/08/19 at 09:00 Vancomycin/Sodium Chloride 250 ml @ 125 mls/hr Q24H IVPB Last administered on 01/09/19at 18:32; Admin Dose 125 MLS/HR; Start 01/08/19 at 18:00 Collagenase (Santyl) 1 applic DAILY TOP Last administered on 01/10/19at 10:42; Admin Dose 1 APPLIC; Start 01/08/19 at 13:30 Sodium Hypochlorite (Dakins Diluted ()) 1 applic DAILY TP Last administered on 01/10/19at 10:41; Admin Dose 1 APPLIC; Start 01/09/19 at 09:00 Collagenase (Santyl) 1 applic DAILY TOP Last administered on 01/10/19at 10:42; Admin Dose 1 APPLIC; Start 01/09/19 at 09:00 Metronidazole 100 ml @ 100 mls/hr Q8 IVPB Last administered on 01/10/19 05:29; Admin Dose 100 MLS/HR; Start 01/09/19 at 14:00 Sodium Hypochlorite (Dakins Diluted ()) 1 applic DAILY TP Last administered on 01/10/19 10:41; Admin Dose 1 APPLIC; Start 01/09/19 at 18:30 Gentamicin Sulfate (Gentamicin 0.1% Cr) 1 applic TID TOP Last administered on 01/10/19 10:43; Admin Dose 1 APPLIC; Start 01/09/19 at 21:00 Aztreonam 50 ml @ 100 mls/hr Q8H IVPB Last administered on 01/10/19 10:40; Admin Dose 100 MLS/HR; Start 01/10/19 at 02:00 Vancomycin HCl (Vancomycin Oral Syringe) 250 mg Q6 PO Last administered on 01/10/19 12:19; Admin Dose 250 MG; Start 01/10/19 at 00:00 Insulin Aspart (Novolog Insulin Pen) 6 unit WITH MEALS SC Last administered on 01/10/19 12:17; Admin Dose 6 UNIT; Start 01/10/19 at 11:30 Insulin Glargine (Lantus) 19 units QHS SC ; Start 01/10/19 at 21:00 VTE Prophylaxis Risk score (from Ns)>0 risk: 6 SCD applied (from Ns): Yes Lines/Catheters IV Catheter Type: Butcher in Place: No Assessment/Plan Hospital Course Subjective Patient doing well, bowel movements have improved significantly Objective Physical exam General: Patient is laying in bed and answers questions appropriately Mentation: Patient is alert and oriented 4, Head: Normocephalic atraumatic Eyes: EOMI, pupils reactive to light Neck: Supple, nontender, midline Respiratory: Clear to auscultation bilaterally Cardiovascular: regular rate, no obvious murmurs Gastrointestinal: non-tender to palpation, bowel sounds heard. Neurological: Moves all extremities spontaneously Skin: Left foot wound, bandaged Assessment and plan Chronic left foot wound with osteomyelitis -Patient left [facility] from [facility] facility approximally 1 week ago, has not been getting antibiotics since -We will restart patient on previous antibiotic of Vanco and aztreonam as pat ient was growing bacteria resistant to cefepime -ID on board as well as podiatry C. difficile colitis -C. difficile positive -Flagyl with vanco oral per ID -infectious disease consulted Diabetes mellitus -Insulin and adjust as needed Acute kidney injury on chronic kidney disease -Nephrology on board -Renally dose all medications Anemia -Monitor, transfuse as needed This lipidemia -Continue statin Coronary artery disease on Plavix -Continue home meds Chronic depression -Continue home meds Disposition -Continue IV Flagyl/oral vanco for C. difficile colitis, will need ID and podiatry recommendations for further care, patient will likely need to be arranged with home health IV antibiotics once stable. DIGNA ANDRADE Jan 10, 2019 14:46
[2019-01-10] MEDS ORDERED: GENTAMICIN IV PER PHARMACY XX SCH (16:30)
--- NOTE | 2019-01-10 16:36 | CONS ---
Assessment/Plan Assessment/Plan Hospital Course (Demo Recall) ID PROGRESS NOTE CURRENT ABX: DAY # => Vanco IV + Azactam + Flagyl IV + Vanco Liq PO s/p Cefepime s/p Zosyn 01/10/19 0620 01/10/19 0620 24H INTERVAL SUMMARY * Awake, resting with TV on, no fevers, chronic debility w/prolonged illness chronic foot infection. * Wound Cx resulted: (+)PSAR infection has developed resistance to Monobactam/ESBL organism -- sensitive to Aminoglycosides only -- patient with acute on chronic renal insufficiency -- continued ABX w/Aminoglycoside carry risks. * (+)C.Diff Multiple loose stools -- started on Flagyl IV and Vanco PO due to hx of C.Diff * Hx of emesis due to gastroparesis, at times difficult to tolerate PO Meds -- we will monitor. DIAGNOSTIC IMAGING * 01/07/19 LEFT FOOT XR: IMPRESSION: More prominent erosive changes to the base of the fifth proximal phalanx and the distal fifth metatarsal compared to prio r study, likely infectious. Status post removal of one midfoot fixation screw. Otherwise, the remainder of the study is unchanged. MICRO/OTHER * * 01/08/19 LEFT FOOT WOUND CX: WOUND CULTURE Preliminary Organism 1 PSEUDOMONAS AERUGINOSA QUANTITY 2+ Pseudomonas aeroginosa: Multi drug resistant organism P.AERUG M.I.C. RX --------- --- AMIKACIN <=2 S AZTREONAM R CEFEPIME >=64 R CEFTAZIDIME >=64 R CIPROFLOXACIN 2 I GENTAMICIN <=1 S LEVOFLOXACIN >=8 R TOBRAMYCIN <=1 S PIPERACILLIN/TAZOBACTAM R * 01/07/19 BCx (-) * 01/07/19: Stool (+)C.Diff C DIFFICILE DNA AMPLIFICATION Final CYTOTOXIGENIC C DIFFICILE POSITIVE (Ref Range Neg) ```````````````````````` ````````````````````````````````````````````````````````` * PRIOR ADMISSION MICRO * 11/13/18 LEFT FOOT WOUND CX: TISSUE (BIOPSY) CULTURE Final Organism 1 PSEUDOMONAS AERUGINOSA QUANTITY 3+ P.AERUG P.AERUG M.I.C. RX M.I.C. RX --------- --- --------- --- AMIKACIN <=2 S AZTREONAM S CEFEPIME 16 I CEFTAZIDIME >=64 R CIPROFLOXACIN >=4 R GENTAMICIN <=1 S LEVOFLOXACIN >=8 R MEROPENEM 3 S TOBRAMYCIN <=1 S PIPERACILLIN/TAZOBACTAM R PHYSICAL EXAMINATION: GENERAL: VSS, NAD HEENT: AT, NC, anicteric NECK: Supple, CHEST: Equal chest rise bilaterally, without dyspnea on observation HEART: Pulse RRR ABDOMEN: Soft / NT EXTREMITIES: Warm, dry / LEFT FOOT DSG C/D/I SKIN: No rash, no diaphoresis ID ASSESSMENT 53 yo F admit with: SIRS w/ESR 46 & CRP 4.7 w/hyperglycemia early DKA => due to acute/chronic infection Complex acute on chronic Left foot infection with: * Diabetic ulcer * Diabetic microvascular disease * Charcot neuroarthropathy * Osteomyelitis -> s/p multiple dbridements w/flap repair & tissue/bone bx 11/13/18 => TISSUE CX (+) PSAR * Hx of (+)MRSA Osteomyelitis left foot --> s/p 8 weeks ABX JUL 2018 == w/repeat tissue cx (-) MRSA DM2 with polyneuropathies * DM peripheral neuropathy * DM autonomic dysreflexia * DM gastroparesis w/hx of recurrent emesis + ABD pain PAD C.Difficile Colitis -- ABX associated recurrent infection Hypoalbuminemia Essential HTN w/hx of HTN urgency Acute/CKD => Chronic kidney disease secondary to diabetic nephropathy with nephrotic range proteinuria. Anemia of chronic disease and iron deficiency Hx of Left upper extremity thrombus w/edema Hypercoagulable state Hx of COPD-Asthma = asymptomatic Hx of OPIOID INDUCED CONSTIPATION * Hx of vasovagal episode in setting of opioid constipation while attempting to pass stool on commode Hx of CAD and Hx of HF -- stable Hx of recurrent GNR UTI: s/p Pseudomonas and E. coli UTI = S/P TREATED Hx of transaminitis secondary to Daptomycin Depression due to medical condition (-)MRSA Nares on 11/13/18 ABX ALLERGIES: NKDA INVASIVES: PICC ->Right upper extremity PICC line, present on admission CURRENT ABX: => Vanco IV + Azactam + Flagyl IV + Vanco Liq PO ID RECOMMENDATIONS/PLAN: 1. (+)PSAR infection has developed resistance to Monobactam/ESBL organism -- sensitive to Aminoglycosides only * RISKS VS BENEFTIS OF ABX weighed: patient with acute on chronic renal insufficiency -- continued ABX w/Aminoglycoside carry risks. * START GENT to cover MDRO PSAR persistent osteomyelitis * FUTURE: May consider Avycaz if renal fx deteriorates and pharmacy approves terminal operations manager use 2. DC Vanco IV 3. Continue Flagy IV and Vanco liquid PO for C.Diff colitis 4. Limit all other renally cleared meds as we have limited options to cover MDRO PSAR . Consultation Date/Type/Reason Admit Date/Time Jan 07, 2019 at 21:39 Initial Consult Date Date/Time of Note DATE: 01/10/19 TIME: 16:17 Exam/Review of Systems Exam Vitals Vital Signs Date Temp Pulse Resp B/P (MAP) Pulse Ox O2 O2 Flow FiO2 Time Delivery Rate 01/10/19 98.0 70 18 119/64 96 Room Air 14:00 (82) Intake and Output 01/09/19 01/09/19 01/10/19 1515:00 23:00 07:00 IntakeIntake Total 390 ml 1000 ml 1045 ml OutputOutput Total 800 ml 575 ml BalanceBalance 390 ml 200 ml 470 ml Results Result Diagram: 01/10/19 0620 01/10/19 0620 Results 24hrs Laboratory Tests Test 01/09/19 17:14 01/09/19 17:39 01/09/19 20:22 01/10/19 06:20 Vancomycin Level 15.7 Trough Bedside Glucose 118 137 White Blood Count 5.8 Red Blood Count 3.45 L Hemoglobin 9.4 L Hematocrit 28.5 L Mean Corpuscular 82.6 Volume Mean Corpuscular 27.2 L Hemoglobin Mean Corpuscular 33.0 Hemoglobin Concent Red Cell 13.7 Distribution Width Platelet Count 331 Mean Platelet Volume 10.6 H Immature 0.700 H Granulocytes % Neutrophils % 62.7 Lymphocytes % 26.7 Monocytes % 7.3 Eosinophils % 2.3 Basophils % 0.3 Nucleated Red Blood 0.0 Cells % Immature 0.040 H Granulocytes # Neutrophils # 3.6 Lymphocytes # 1.5 Monocytes # 0.4 Eosinophils # 0.1 Basophils # 0.0 Nucleated Red Blood 0.0 Cells # Sodium Level 139 Potassium Level 3.5 Chloride Level 113 H Carbon Dioxide Level 21 Anion Gap 5 Blood Urea Nitrogen 24 H Creatinine 1.72 H Est Glomerular 31 L Filtrat Rate mL/min Glucose Level 63 L Calcium Level 8.6 Phosphorus Level 4.3 Magnesium Level 1.9 Test 01/10/19 07:59 01/10/19 12:16 Bedside Glucose 67 L 121 Medications Medication Current Medications IV Flush (NS 3 ml) 3 ml PER PROTOCOL IV ; Start 01/07/19 at 22:30 Ondansetron HCl (Zofran Inj) 4 mg Q6H PRN IV NAUSEA/VOMITING; Start 01/07/19 at 22:30 Acetaminophen (Tylenol Tab) 650 mg Q6H PRN PO .PAIN 1-3 OR TEMP; Start 01/07/19 at 22:30 Acetaminophen/ Hydrocodone Bitart ([place] (5/325)) 1 tab Q6H PRN PO .MOD PAIN 4- 6; Start 01/07/19 at 22:30 Acetaminophen/ Hydrocodone Bitart ([place] (5/325)) 2 tab Q6H PRN PO .SEVERE PAIN 7-10 Last administered on 01/10/19at 01:26; Admin Dose 2 TAB; Start 01/07/19 at 22:30 Heparin Sodium (Porcine) (Heparin (5000 Units/1ml)) 5,000 unit Q12 SC Last administered on 01/10/19at 10:44; Admin Dose 5,000 UNIT; Start 01/08/19 at 09:00 Amlodipine Besylate (Norvasc) 10 mg DAILY PO Last administered on 01/10/19 08:17; Admin Dose 10 MG; Start 01/08/19 at 09:00 Ascorbic Acid (Vitamin C) 500 mg DAILY PO Last administered on 01/10/19 08:16; Admin Dose 500 MG; Start 01/08/19 at 09:00 Aspirin (Aspirin) 81 mg DAILY PO Last administered on 01/10/19 08:18; Admin Dose 81 MG; Start 01/08/19 at 09:00 Atorvastatin Calcium (Lipitor) 40 mg HS PO Last administered on 01/09/19 20:25; Admin Dose 40 MG; Start 01/08/19 at 21:00 Bupropion HCl (Wellbutrin Sr) 150 mg BID PO Last administered on 01/10/19 08:17; Admin Dose 150 MG; Start 01/07/19 at 22:30 Carvedilol (Coreg) 12.5 mg BID PO Last administered on 01/10/19 08:18; Admin Dose 12.5 MG; Start 01/08/19 at 09:00 Clopidogrel Bisulfate (plaVIX) 75 mg DAILY PO Last administered on 01/10/19 08:17; Admin Dose 75 MG; Start 01/08/19 at 09:00 Famotidine (Pepcid) 20 mg DAILY PO Last administered on 01/10/19 08:18; Admin Dose 20 MG; Start 01/08/19 at 09:00 Hydralazine HCl (Apresoline) 75 mg TID PO Last administered on 01/10/19 14:41; Admin Dose 75 MG; Start 01/08/19 at 09:00 Lisinopril (Zestril) 20 mg DAILY PO Last administered on 01/08/19 09:36; Admin Dose 20 MG; Start 01/08/19 at 09:00; Status Hold Montelukast Sodium (Singulair) 10 mg HS PO Last administered on 01/09/19 2 0:25; Admin Dose 10 MG; Start 01/08/19 at 21:00 Ondansetron HCl (Zofran Tab) 4 mg Q6H PRN PO NAUSEA AND/OR VOMITING; Start 01/07/19 at 22:30 Polyethylene Glycol (Miralax) 17 gm BID PO Last administered on 01/08/19 22:05; Admin Dose 17 GM; Start 01/08/19 at 09:00 Sucralfate (Carafate) 1 gm AC MEALS AND BEDTIME PO Last administered on 01/10/19 10:39; Admin Dose 1 GM; Start 01/08/19 at 07:00 Zinc Sulfate (Zinc Sulfate) 220 mg DAILY PO Last administered on 01/10/19 10:46; Admin Dose 220 MG; Start 01/08/19 at 09:00 Diagnostic Test (Pha) (Accu-Chek) 1 ea 02 XX Last administered on 01/08/19 02:40; Admin Dose 1 EA; Start 01/08/19 at 02:00 Insulin Aspart (Novolog Insulin Pen) NOVOLOG *MODERATE* ALGORITHM WITH MEALS BEDTIME SC Last administered on 01/08/19 11:41; Admin Dose 4 UNIT; Start 01/08/19 at 08:00 Miscellaneous Information 1 ea NOTE XX ; Start 01/07/19 at 23:00 Glucose (Glutose) 15 gm Q15M PRN PO DECREASED GLUCOSE; Start 01/07/19 at 23:00 Glucose (Glutose) 22.5 gm Q15M PRN PO DECREASED GLUCOSE; Start 01/07/19 at 23:00 Dextrose (D50w Syringe) 25 ml Q15M PRN IV DECREASED GLUCOSE; Start 01/07/19 at 23:00 Dextrose (D50w Syringe) 50 ml Q15M PRN IV DECREASED GLUCOSE; Start 01/07/19 at 23:00 Glucagon (Glucagen) 1 mg Q15M PRN IM DECREASED GLUCOSE; Start 01/07/19 at 23:00 Glucose (Glutose) 15 gm Q15M PRN BUCCAL DECREASED GLUCOSE; Start 01/07/19 at 23:00 Miscellaneous Information (Pending Santyl Order For Wound Care) This patient rodríguez... PRN PRN XX WOUND CARE; Start 01/08/19 at 01:00 Vancomycin HCl (Vanco Iv Per Pharmacy) VANCOMYCIN PER PHARMACY PER PROTOCOL XX ; Start 01/08/19 at 09:00 Vancomycin/Sodium Chloride 250 ml @ 125 mls/hr Q24H IVPB Last administered on 01/09/19 18:32; Admin Dose 125 MLS/HR; Start 01/08/19 at 18:00 Collagenase (Santyl) 1 applic DAILY TOP Last administered on 01/10/19 10:42; Admin Dose 1 APPLIC; Start 01/08/19 at 13:30 Sodium Hypochlorite (Dakins Diluted ()) 1 applic DAILY TP Last administered on 01/10/19 10:41; Admin Dose 1 APPLIC; Start 01/09/19 at 09:00 Collagenase (Santyl) 1 applic DAILY TOP Last administered on 01/10/19 10:42; Admin Dose 1 APPLIC; Start 01/09/19 at 09:00 Metronidazole 100 ml @ 100 mls/hr Q8 IVPB Last administered on 01/10/19 14:41; Admin Dose 100 MLS/HR; Start 01/09/19 at 14:00 Sodium Hypochlorite (Dakins Diluted ()) 1 applic DAILY TP Last administered on 01/10/19 10:41; Admin Dose 1 APPLIC; Start 01/09/19 at 18:30 Gentamicin Sulfate (Gentamicin 0.1% Cr) 1 applic TID TOP Last administered on 01/10/19 14:41; Admin Dose 1 APPLIC; Start 01/09/19 at 21:00 Aztreonam 50 ml @ 100 mls/hr Q8H IVPB Last administered on 01/10/19 10:40; Admin Dose 100 MLS/HR; Start 01/10/19 at 02:00 Vancomycin HCl (Vancomycin Oral Syringe) 250 mg Q6 PO Last administered on 01/10/19 12:19; Admin Dose 250 MG; Start 01/10/19 at 00:00 Insulin Aspart (Novolog Insulin Pen) 6 unit WITH MEALS SC Last administered on 01/10/19 12:17; Admin Dose 6 UNIT; Start 01/10/19 at 11:30 Insulin Glargine (Lantus) 19 units QHS SC ; Start 01/10/19 at 21:00 BRENT HERRERA NP Jan 10, 2019 16:28
[2019-01-10 20:00] VITALS: BP 160/81; PULSE 78; RESP 18
[2019-01-10] MEDS ORDERED: GENTAMICIN 290 MG in SOD CHLORIDE 0.9% 100 ML IVPB SCH (20:00)
[2019-01-10] MEDS: MONTELUKAST 10 MG TAB PO SCH (21:07)
[2019-01-10] MEDS: ATORVASTATIN 40 MG TAB PO SCH (21:07)
[2019-01-10] MEDS: INSULIN GLARGINE [LANTus] (100 UNITS/ML) SYG SC SCH (21:33)
[2019-01-11] MEDS: VANCOMYCIN HCL 250 MG/5ML POSYG PO SCH ×4 (00:49→18:04)
[2019-01-11] MEDS: ACCU-CHEK XX SCH (00:50)
[2019-01-11 02:00] VITALS: BP 115/59; PULSE 68; RESP 18
[2019-01-11] MEDS: metroNIDAZOLE 500 MG/NS (PMX) 100 ML IVPB SCH ×3 (05:47→21:59)
[2019-01-11] MEDS: SUCRALFATE 1 GM TAB PO SCH ×4 (08:13→21:58)
[2019-01-11] MEDS: INSULIN ASPART [NOVOLOG] 3 ML PEN SC SCH ×7 (08:15→21:00)
[2019-01-11 08:39] VITALS: BP 135/69; PULSE 73; RESP 18
--- NOTE | 2019-01-11 09:37 | PN ---
DATE: 01/11/2019 SUBJECTIVE: The patient is stable, no events overnight. No fevers, chills, nausea, or vomiting. OBJECTIVE: VITAL SIGNS: Blood pressure is 135/69, respirations 18, pulse 73, temperature 98.5. HEENT: Head is normocephalic. NECK: Supple. HEART: Regular rate. LUNGS: Show diminished breath sounds at the base. ABDOMEN: Soft, nontender to palpation without rebound or guarding. EXTREMITIES: Negative for clubbing, cyanosis, no edema. DERMATOLOGIC: No rashes. MUSCULOSKELETAL: No joint effusion. NEUROLOGIC: No change in exam. MEDICATIONS: Reviewed. LABORATORY DATA: Reviewed. ASSESSMENT AND PLAN: 1. Nonoliguric acute kidney injury on top of chronic kidney disease with previous baseline creatinin e of 1.0 to 1.5 mg/dL. Etiology of current acute kidney injury is secondary to hemodynamics. Renal function is slowly improving. Continue current treatment plan, supportive care, renally dose all med icines. 2. Chronic kidney disease with diabetic nephropathy, nephrotic range proteinuria. The patient is cu rrently in acute kidney injury as stated above. Continue disease factor modification. Resume ASHLEY in hibitor once renal function is stable. 3. Anemia. Continue to monitor hemoglobin and hematocrit levels. 4. Mineral bone disorder. Monitor calcium and phosphorus levels. 5. Metabolic acidosis secondary to acute kidney injury, improving. 6. C. difficile. Continue oral vancomycin. 7. Left foot osteomyelitis. Continue current antibiotic therapy. 8. Hypertension. Continue current blood pressure regimen. 9. Dyslipidemia. Continue statin therapy. 10. Diabetes. Continue current insulin regimen. 11. Hypernatremia, resolved. Dictated By: RAYSHAWN FULLER DO NR/NTS Conf#: [id number] DID#: [id number] CC: YUNIEL ESCOBAR MD; DIGNA ANDRADE MD;*EndCC*
[2019-01-11] MEDS: COLLAGENASE 5 GM (UD JAR) TOP SCH ×2 (10:53)
[2019-01-11] MEDS: CLOPIDOGREL 75 MG TAB PO SCH (10:54)
[2019-01-11] MEDS: ASCORBIC ACID 500 MG TAB PO SCH (10:54)
[2019-01-11] MEDS: ASPIRIN 81 MG TAB PO SCH (10:54)
[2019-01-11] MEDS: BUPROPION (SR) 150 MG TAB PO SCH ×2 (10:54→21:58)
[2019-01-11] MEDS: AMLODIPINE 10 MG TAB PO SCH (10:55)
[2019-01-11] MEDS: POLYETHYLENE GLYCOL 17 GM PACKET PO SCH (10:55)
[2019-01-11] MEDS: ZINC SULFATE 220 MG CAP PO SCH (10:55)
[2019-01-11] MEDS: FAMOTIDINE 20 MG TAB PO SCH (10:56)
[2019-01-11] MEDS: HEPARIN 5,000 UNIT/1 ML VIAL SC SCH ×2 (11:00→21:57)
[2019-01-11] MEDS: GENTAMICIN 0.1% CREAM 15GM TUBE TOP SCH ×3 (11:00→22:08)
[2019-01-11] MEDS: DAKINS 0.0125%(1/40) 473 ML SOLUTION TP SCH ×2 (11:01)
--- NOTE | 2019-01-11 11:41 | PN ---
Date/Time of Note Date/Time of Note DATE: 01/11/19 TIME: 11:40 Objective Vitals Vital Signs Date Temp Pulse Resp B/P (MAP) Pulse Ox O2 O2 Flow FiO2 Time Delivery Rate 01/11/19 98.5 73 18 135/69 98 Room Air 08:39 (91) Intake and Output 01/10/19 01/10/19 01/11/19 1515:00 23:00 07:00 IntakeIntake Total 250 ml 800 ml 447.25 ml OutputOutput Total 800 ml BalanceBalance 250 ml 0 ml 447.25 ml Results Result Diagram: 01/11/1932 01/11/19531 Medications Medications Current Medications IV Flush (NS 3 ml) 3 ml PER PROTOCOL IV ; Start 01/07/19 at 22:30 Ondansetron HCl (Zofran Inj) 4 mg Q6H PRN IV NAUSEA/VOMITING; Start 01/07/19 at 22:30 Acetaminophen (Tylenol Tab) 650 mg Q6H PRN PO .PAIN 1-3 OR TEMP; Start 01/07/19 at 22:30 Acetaminophen/ Hydrocodone Bitart ([place] (5/325)) 1 tab Q6H PRN PO .MOD PAIN 4- 6; Start 01/07/19 at 22:30 Acetaminophen/ Hydrocodone Bitart ([place] (5/325)) 2 tab Q6H PRN PO .SEVERE PAIN 7-10 Last administered on 01/10/19at 01:26; Admin Dose 2 TAB; Start 01/07/19 at 22:30 Heparin Sodium (Porcine) (Heparin (5000 Units/1ml)) 5,000 unit Q12 SC Last administered on 01/11/19at 11:00; Admin Dose 5,000 UNIT; Start 01/08/19 at 09:00 Amlodipine Besylate (Norvasc) 10 mg DAILY PO Last administered on 01/11/19at 10:55; Admin Dose 10 MG; Start 01/08/19 at 09:00 Ascorbic Acid (Vitamin C) 500 mg DAILY PO Last administered on 01/11/19at 10:54; Admin Dose 500 MG; Start 01/08/19 at 09:00 Aspirin (Aspirin) 81 mg DAILY PO Last administered on 01/11/19at 10:54; Admin Dose 81 MG; Start 01/08/19 at 09:00 Atorvastatin Calcium (Lipitor) 40 mg HS PO Last administered on 01/10/19 21:07; Admin Dose 40 MG; Start 01/08/19 at 21:00 Bupropion HCl (Wellbutrin Sr) 150 mg BID PO Last administered on 01/11/19 10:54; Admin Dose 150 MG; Start 01/07/19 at 22:30 Carvedilol (Coreg) 12.5 mg BID PO Last administered on 01/11/19 10:55; Admin Dose 12.5 MG; Start 01/08/19 at 09:00 Clopidogrel Bisulfate (plaVIX) 75 mg DAILY PO Last administered on 01/11/19 10:54; Admin Dose 75 MG; Start 01/08/19 at 09:00 Famotidine (Pepcid) 20 mg DAILY PO Last administered on 01/11/19 10:56; Admin Dose 20 MG; Start 01/08/19 at 09:00 Hydralazine HCl (Apresoline) 75 mg TID PO Last administered on 01/11/19 10:54; Admin Dose 75 MG; Start 01/08/19 at 09:00 Lisinopril (Zestril) 20 mg DAILY PO Last administered on 01/08/19 09:36; Admin Dose 20 MG; Start 01/08/19 at 09:00; Status Hold Montelukast Sodium (Singulair) 10 mg HS PO Last administered on 01/10/19 21:07; Admin Dose 10 MG; Start 01/08/19 at 21:00 Ondansetron HCl (Zofran Tab) 4 mg Q6H PRN PO NAUSEA AND/OR VOMITING; Start 01/07/19 at 22:30 Polyethylene Glycol (Miralax) 17 gm BID PO Last administered on 01/11/19 10:55; Admin Dose 17 GM; Start 01/08/19 at 09:00 Sucralfate (Carafate) 1 gm AC MEALS AND BEDTIME PO Last administered on 9at 08:13; Admin Dose 1 GM; Start 01/08/19 at 07:00 Zinc Sulfate (Zinc Sulfate) 220 mg DAILY PO Last administered on 01/11/19 10:55; Admin Dose 220 MG; Start 01/08/19 at 09:00 Diagnostic Test (Pha) (Accu-Chek) 1 ea 02 XX Last administered on 01/08/19at 02:40; Admin Dose 1 EA; Start 01/08/19 at 02:00 Insulin Aspart (Novolog Insulin Pen) NOVOLOG *MODERATE* ALGORITHM WITH MEALS BEDTIME SC Last administered on 01/11/19at 08:16; Admin Dose 2 UNIT; Start 01/08/19 at 08:00 Miscellaneous Information 1 ea NOTE XX ; Start 01/07/19 at 23:00 Glucose (Glutose) 15 gm Q15M PRN PO DECREASED GLUCOSE; Start 01/07/19 at 23:00 Glucose (Glutose) 22.5 gm Q15M PRN PO DECREASED GLUCOSE; Start 01/07/19 at 23:00 Dextrose (D50w Syringe) 25 ml Q15M PRN IV DECREASED GLUCOSE; Start 01/07/19 at 23:00 Dextrose (D50w Syringe) 50 ml Q15M PRN IV DECREASED GLUCOSE; Start 01/07/19 at 23:00 Glucagon (Glucagen) 1 mg Q15M PRN IM DECREASED GLUCOSE; Start 01/07/19 at 23:00 Glucose (Glutose) 15 gm Q15M PRN BUCCAL DECREASED GLUCOSE; Start 01/07/19 at 23:00 Miscellaneous Information (Pending Santyl Order For Wound Care) This patient rodríguez... PRN PRN XX WOUND CARE; Start 01/08/19 at 01:00 Collagenase (Santyl) 1 applic DAILY TOP Last administered on 01/11/19at 10:53; Admin Dose 1 APPLIC; Start 01/08/19 at 13:30 Sodium Hypochlorite (Dakins Diluted (1/40)) 1 applic DAILY TP Last administered on 01/11/19 11:01; Admin Dose 1 APPLIC; Start 01/09/19 at 09:00 Collagenase (Santyl) 1 applic DAILY TOP Last administered on 01/11/19 10:53; Admin Dose 1 APPLIC; Start 01/09/19 at 09:00 Metronidazole 100 ml @ 100 mls/hr Q8 IVPB Last administered on 01/11/19 05:47; Admin Dose 100 MLS/HR; Start 01/09/19 at 14:00 Sodium Hypochlorite (Dakins Diluted (1/40)) 1 applic DAILY TP Last administered on 01/11/19at 11:01; Admin Dose 1 APPLIC; Start 01/09/19 at 18:30 Gentamicin Sulfate (Gentamicin 0.1% Cr) 1 applic TID TOP Last administered on 01/11/19at 11:00; Admin Dose 1 APPLIC; Start 01/09/19 at 21:00 Vancomycin HCl (Vancomycin Oral Syringe) 250 mg Q6 PO Last administered on 01/11/19at 05:47; Admin Dose 250 MG; Start 01/10/19 at 00:00 Insulin Aspart (Novolog Insulin Pen) 6 unit WITH MEALS SC Last administered on 01/11/19at 08:15; Admin Dose 6 UNIT; Start 01/10/19 at 11:30 Insulin Glargine (Lantus) 19 units QHS SC Last administered on 01/10/19at 21:33; Admin Dose 19 UNITS; Start 01/10/19 at 21:00 Gentamicin Sulfate (Gentamicin Iv Per Pharmacy) GENTAMICIN PER PHARMACY ... NOTE XX ; Start 01/10/19 at 16:30 Gentamicin Sulfate 290 mg/ Sodium Chloride 107.25 ml @ 107.25 mls/hr Q24H IVPB Last administered on 01/10/19at 22:30; Admin Dose 107.25 MLS/HR; Start 01/10/19 at 20:00 VTE Prophylaxis Risk score (from Ns)>0 risk: 3 SCD applied (from Ns): Yes Lines/Catheters IV Catheter Type: Butcher in Place: No Assessment/Plan Hospital Course Subjective Patient doing well, bowel movements have improved significantly, however patient upset that she is not going home, tried to explain to the patient that since she left AMA from her group home facility and did not finish the approved amoun t of antibiotics we are are back to square one and awaiting cultures. Patient still very angry and does not have proper train of thought when it comes to her healthcare. Objective Physical exam General: Patient is laying in bed and answers questions appropriately Mentation: Patient is alert and oriented 4, Head: Normocephalic atraumatic Eyes: EOMI, pupils reactive to light Neck: Supple, nontender, midline Respiratory: Clear to auscultation bilaterally Cardiovascular: regular rate, no obvious murmurs Gastrointestinal: non-tender to palpation, bowel sounds heard. Neurological: Moves all extremities spontaneously Skin: Left foot wound, bandaged Assessment and plan Chronic left foot wound with osteomyelitis -Patient left AMA from group home facility approximally 1 week ago, has not been getting antibiotics since -We will restart patient on previous antibiotic of Vanco and aztreonam as patient was growing bacteria resistant to cefepime -ID on board as well as podiatry C. difficile colitis -C. difficile positive -Flagyl with vanco oral per ID -infectious disease consulted Diabetes mellitus -Insulin and adjust as needed Acute kidney injury on chronic kidney disease -Nephrology on board -Renally dose all medications Anemia -Monitor, transfuse as needed This lipidemia -Continue statin Coronary artery disease on Plavix -Continue home meds Chronic depression -Continue home meds Disposition -Continue IV Flagyl/oral vanco for C. difficile colitis, will need ID and podia try recommendations for further care, patient will likely need to be arranged with home health IV antibiotics once final cultures are done. DIGNA ANDRADE Jan 11, 2019 11:41
--- NOTE | 2019-01-11 13:55 | CONS ---
Assessment/Plan Assessment/Plan Hospital Course (Demo Recall) Patient is awake looks comfortable no fevers overnight. WBC 6.7 no shift no bands BUN 27 creatinine 1.60 Microbiology: Left foot wound culture growing Pseudomonas. Stool for C. difficile was positive. Antimicrobials: Gentamicin oral vancomycin, Flagyl Physical examination: Well-nourished well-developed middle-aged woman who is awake in no distress. Head atraumatic normocephalic neck is supple chest rise symmetrical breath sounds diminished bases. Heart: S1-S2. Abdomen soft bowel sounds present. Assessment: 1. Systemic inflammatory response syndrome on admission 2. Left diabetic foot ulceration/osteomyelitis 3. Charge code neuro arthropathy 4. Diabetes 5. Peripheral arterial disease 6. Acute kidney injury Plan: Patient remains stable, podiatry follows, she is on appropriate antibiotic regimen Consultation Date/Type/Reason Admit Date/Time Jan 07, 2019 at 21:39 Initial Consult Date Type of Consult id Date/Time of Note DATE: 01/11/19 TIME: 13:55 Exam/Review of Systems Exam Vitals Vital Signs Date Temp Pulse Resp B/P (MAP) Pulse Ox O2 O2 Flow FiO2 Time Delivery Rate 01/11/19 98.5 73 18 135/69 98 Room Air 08:39 (91) Intake and Output 01/10/19 01/10/19 01/11/19 1515:00 23:00 07:00 IntakeIntake Total 250 ml 800 ml 447.25 ml OutputOutput Total 800 ml BalanceBalance 250 ml 0 ml 447.25 ml Results Result Diagram: 01/11/19 0532 01/11/19 0532 Results 24hrs Laboratory Tests Test 01/10/19 17:23 01/10/19 21:05 01/11/19 05:32 01/11/19 08:11 Bedside Glucose 91 108 170 White Blood Count 6.7 Red Blood Count 3.48 L Hemoglobin 9.5 L Hematocrit 29.2 L Mean Corpuscular 83.9 Volume Mean Corpuscular 27.3 L Hemoglobin Mean Corpuscular 32.5 Hemoglobin Concent Red Cell 13.5 Distribution Width Platelet Count 351 Mean Platelet Volume 10.3 Immature 0.700 H Granulocytes % Neutrophils % 64.7 Lymphocytes % 25.6 Monocytes % 7.1 Eosinophils % 1.5 Basophils % 0.4 Nucleated Red Blood 0.0 Cells % Immature 0.050 H Granulocytes # Neutrophils # 4.3 Lymphocytes # 1.7 Monocytes # 0.5 Eosinophils # 0.1 Basophils # 0.0 Nucleated Red Blood 0.0 Cells # Sodium Level 140 Potassium Level 3.8 Chloride Level 109 Carbon Dioxide Level 23 Anion Gap 8 Blood Urea Nitrogen 27 H Creatinine 1.60 H Est Glomerular 33 L Filtrat Rate mL/min Glucose Level 82 Calcium Level 8.6 Phosphorus Level 4.7 Magnesium Level 1.9 Random Gentamicin 11.4 Level Test 01/11/19 12:07 Bedside Glucose 124 Medications Medication Current Medications IV Flush (NS 3 ml) 3 ml PER PROTOCOL IV ; Start 01/07/19 at 22:30 Ondansetron HCl (Zofran Inj) 4 mg Q6H PRN IV NAUSEA/VOMITING; Start 01/07/19 at 22:30 Acetaminophen (Tylenol Tab) 650 mg Q6H PRN PO .PAIN 1-3 OR TEMP; Start 01/07/19 at 22:30 Acetaminophen/ Hydrocodone Bitart ([place] (5/325)) 1 tab Q6H PRN PO .MOD PAIN 4- 6; Start 01/07/19 at 22:30 Acetaminophen/ Hydrocodone Bitart ([place] (5/325)) 2 tab Q6H PRN PO .SEVERE PAIN 7-10 Last administered on 01/10/19at 01:26; Admin Dose 2 TAB; Start 01/07/19 at 22:30 Heparin Sodium (Porcine) (Heparin (5000 Units/1ml)) 5,000 unit Q12 SC Last administered on 01/11/19at 11:00; Admin Dose 5,000 UNIT; Start 01/08/19 at 09:00 Amlodipine Besylate (Norvasc) 10 mg DAILY PO Last administered on 01/11/19at 10:55; Admin Dose 10 MG; Start 01/08/19 at 09:00 Ascorbic Acid (Vitamin C) 500 mg DAILY PO Last administered on 01/11/19 10:54; Admin Dose 500 MG; Start 01/08/19 at 09:00 Aspirin (Aspirin) 81 mg DAILY PO Last administered on 01/11/19 10:54; Admin Dose 81 MG; Start 01/08/19 at 09:00 Atorvastatin Calcium (Lipitor) 40 mg HS PO Last administered on 01/10/19at 21:07; Admin Dose 40 MG; Start 01/08/19 at 21:00 Bupropion HCl (Wellbutrin Sr) 150 mg BID PO Last administered on 01/11/19 10:54; Admin Dose 150 MG; Start 01/07/19 at 22:30 Carvedilol (Coreg) 12.5 mg BID PO Last administered on 01/11/19 10:55; Admin Dose 12.5 MG; Start 01/08/19 at 09:00 Clopidogrel Bisulfate (plaVIX) 75 mg DAILY PO Last administered on 01/11/19 10:54; Admin Dose 75 MG; Start 01/08/19 at 09:00 Famotidine (Pepcid) 20 mg DAILY PO Last administered on 01/11/19 10:56; Admin Dose 20 MG; Start 01/08/19 at 09:00 Hydralazine HCl (Apresoline) 75 mg TID PO Last administered on 01/11/19 13:13; Admin Dose 75 MG; Start 01/08/19 at 09:00 Lisinopril (Zestril) 20 mg DAILY PO Last administered on 01/08/19 09:36; Admin Dose 20 MG; Start 01/08/19 at 09:00; Status Hold Montelukast Sodium (Singulair) 10 mg HS PO Last administered on 01/10/19 21:07; Admin Dose 10 MG; Start 01/08/19 at 21:00 Ondansetron HCl (Zofran Tab) 4 mg Q6H PRN PO NAUSEA AND/OR VOMITING; Start 01/07/19 at 22:30 Polyethylene Glycol (Miralax) 17 gm BID PO Last administered on 01/11/19 10:55; Admin Dose 17 GM; Start 01/08/19 at 09:00 Sucralfate (Carafate) 1 gm AC MEALS AND BEDTIME PO Last administered on 01/11/19 12:09; Admin Dose 1 GM; Start 01/08/19 at 07:00 Zinc Sulfate (Zinc Sulfate) 220 mg DAILY PO Last administered on 01/11/19 10:55; Admin Dose 220 MG; Start 01/08/19 at 09:00 Diagnostic Test (Pha) (Accu-Chek) 1 ea 02 XX Last administered on 01/08/19 02:40; Admin Dose 1 EA; Start 01/08/19 at 02:00 Insulin Aspart (Novolog Insulin Pen) NOVOLOG *MODERATE* ALGORITHM WITH MEALS BEDTIME SC Last administered on 01/11/19at 08:16; Admin Dose 2 UNIT; Start 09/16 at 08:00 Miscellaneous Information 1 ea NOTE XX ; Start 01/07/19 at 23:00 Glucose (Glutose) 15 gm Q15M PRN PO DECREASED GLUCOSE; Start 01/07/19 at 23:00 Glucose (Glutose) 22.5 gm Q15M PRN PO DECREASED GLUCOSE; Start 01/07/19 at 23:00 Dextrose (D50w Syringe) 25 ml Q15M PRN IV DECREASED GLUCOSE; Start 01/07/19 at 23:00 Dextrose (D50w Syringe) 50 ml Q15M PRN IV DECREASED GLUCOSE; Start 01/07/19 at 23:00 Glucagon (Glucagen) 1 mg Q15M PRN IM DECREASED GLUCOSE; Start 01/07/19 at 23:00 Glucose (Glutose) 15 gm Q15M PRN BUCCAL DECREASED GLUCOSE; Start 01/07/19 at 23:00 Miscellaneous Information (Pending Santyl Order For Wound Care) This patient rodríguez... PRN PRN XX WOUND CARE; Start 01/08/19 at 01:00 Collagenase (Santyl) 1 applic DAILY TOP Last administered on 01/11/19at 10:53; Admin Dose 1 APPLIC; Start 01/08/19 at 13:30 Sodium Hypochlorite (Dakins Diluted (1/40)) 1 applic DAILY TP Last administered on 01/11/19at 11:01; Admin Dose 1 APPLIC; Start 01/09/19 at 09:00 Collagenase (Santyl) 1 applic DAILY TOP Last administered on 01/11/19at 10:53; Admin Dose 1 APPLIC; Start 01/09/19 at 09:00 Metronidazole 100 ml @ 100 mls/hr Q8 IVPB Last administered on 01/11/19 13:13; Admin Dose 100 MLS/HR; Start 01/09/19 at 14:00 Sodium Hypochlorite (Dakins Diluted (1/40)) 1 applic DAILY TP Last administered on 01/11/19 11:01; Admin Dose 1 APPLIC; Start 01/09/19 at 18:30 Gentamicin Sulfate (Gentamicin 0.1% Cr) 1 applic TID TOP Last administered on 01/11/19 13:13; Admin Dose 1 APPLIC; Start 01/09/19 at 21:00 Vancomycin HCl (Vancomycin Oral Syringe) 250 mg Q6 PO Last administered on 01/11at 05:47; Admin Dose 250 MG; Start 01/10/19 at 00:00 Insulin Aspart (Novolog Insulin Pen) 6 unit WITH MEALS SC Last administered on 01/11/19at 12:13; Admin Dose 6 UNIT; Start 01/10/19 at 11:30 Insulin Glargine (Lantus) 19 units QHS SC Last administered on 01/10/19at 21:33; Admin Dose 19 UNITS; Start 01/10/19 at 21:00 Gentamicin Sulfate (Gentamicin Iv Per Pharmacy) GENTAMICIN PER PHARMACY ... NOTE XX ; Start 01/10/19 at 16:30 Gentamicin Sulfate 290 mg/ Sodium Chloride 107.25 ml @ 107.25 mls/hr Q48H IVPB ; Start 01/12/19 at 23:00 KAYODE WESLEY NP Jan 11, 2019 13:55
[2019-01-11 14:23] VITALS: BP 120/71; PULSE 73; RESP 18
[2019-01-11] MEDS ORDERED: POLYETHYLENE GLYCOL 17 GM PACKET PO PRN (16:30)
--- NOTE | 2019-01-11 18:26 | CONS ---
Assessment/Plan Assessment/Plan Assessment/Plan (Daily) Left foot diabetic ulcer Charcot neuroarthropathy Osteomyelitis DM2 with peripheral neuropathy PAD hypoalbuminemia Plan Consent was obtained and performed bedside exicisonal debridement of skin/subQ/muscle/bone using a pickup and scissor and scalpel. Fibrotic tissue and non viable tissue was removed from the ulcer sites. Area of 6.1cm2 was debrided. Copious irrigation with dakins. Gentamicin, betadine 4x4 gauze, kerlix and niyah applied to the wound sites. Reviewed X-rays, wound cultures showing psuedomonas growth. Recommend local wound care with daily dressings changes. Offload heels with pillows. IV abx per ID recommendations. Recommend nutrition optimization. Tight glycemic control. Positive for coliform in feces along with C.diff and appreciate ID recommendations. Consultation Date/Type/Reason Admit Date/Time Jan 07, 2019 at 21:39 Initial Consult Date Date/Time of Note DATE: 01/11/19 TIME: 18:22 24 HR Interval Summary Free Text/Dictation No acute events overnight. Exam/Review of Systems Exam Vitals Vital Signs Date Temp Pulse Resp B/P (MAP) Pulse Ox O2 O2 Flow FiO2 Time Delivery Rate 01/11/19 98.1 73 18 120/71 97 Room Air 14:23 (87) Intake and Output 01/10/19 01/10/19 01/11/19 1515:00 23:00 07:00 IntakeIntake Total 250 ml 800 ml 447.25 ml OutputOutput Total 800 ml BalanceBalance 250 ml 0 ml 447.25 ml Exam Midfoot instability Right dorsal foot ulceration site which probes to bone 0.5 x 0.6 x 0.5cm no purulent drainage no proximal streaking Right posterior heel ulcer 2 x 2.5 x 0.3cm fibrogranular wound base, unable to probe to bone, no proximal streaking, no purulence appreciated Right lateral 5th MPJ site ulceration 1.0 x 0.8 x 0.9cm, no purulence noted, no proximal streaking. Absent protective sensations appreciated. Palpable pedal pulses Skin graft site to dorsal foot with epithelialization noted. Foot X-ray IMPRESSION: More prominent erosive changes to the base of the fifth proximal phalanx and the distal fifth metatarsal compared to prior study, likely infectious. Status post removal of one midfoot fixation screw. Otherwise, the remainder of the study is unchanged. Results Result Diagram: 01/11/19 0532 01/11/19 0532 Results 24hrs Laboratory Tests Test 01/10/19 21:05 01/11/19 05:32 01/11/19 08:11 01/11/19 12:07 Bedside Glucose 108 170 124 White Blood Count 6.7 Red Blood Count 3.48 L Hemoglobin 9.5 L Hematocrit 29.2 L Mean Corpuscular 83.9 Volume Mean Corpuscular 27.3 L Hemoglobin Mean Corpuscular 32.5 Hemoglobin Concent Red Cell 13.5 Distribution Width Platelet Count 351 Mean Platelet Volume 10.3 Immature 0.700 H Granulocytes % Neutrophils % 64.7 Lymphocytes % 25.6 Monocytes % 7.1 Eosinophils % 1.5 Basophils % 0.4 Nucleated Red Blood 0.0 Cells % Immature 0.050 H Granulocytes # Neutrophils # 4.3 Lymphocytes # 1.7 Monocytes # 0.5 Eosinophils # 0.1 Basophils # 0.0 Nucleated Red Blood 0.0 Cells # Sodium Level 140 Potassium Level 3.8 Chloride Level 109 Carbon Dioxide Level 23 Anion Gap 8 Blood Urea Nitrogen 27 H Creatinine 1.60 H Est Glomerular 33 L Filtrat Rate mL/min Glucose Level 82 Calcium Level 8.6 Phosphorus Level 4.7 Magnesium Level 1.9 Random Gentamicin 11.4 Level Test 01/11/19 17:42 Bedside Glucose 168 Medications Medication Current Medications IV Flush (NS 3 ml) 3 ml PER PROTOCOL IV ; Start 01/07/19 at 22:30 Ondansetron HCl (Zofran Inj) 4 mg Q6H PRN IV NAUSEA/VOMITING; Start 01/07/19 at 22:30 Acetaminophen (Tylenol Tab) 650 mg Q6H PRN PO .PAIN 1-3 OR TEMP; Start 01/07/19 at 22:30 Acetaminophen/ Hydrocodone Bitart ([place] (5/325)) 1 tab Q6H PRN PO .MOD PAIN 4- 6; Start 01/07/19 at 22:30 Acetaminophen/ Hydrocodone Bitart ([place] (5/325)) 2 tab Q6H PRN PO .SEVERE PAIN 7-10 Last administered on 01/10/19at 01:26; Admin Dose 2 TAB; Start 01/07/19 at 22:30 Heparin Sodium (Porcine) (Heparin (5000 Units/1ml)) 5,000 unit Q12 SC Last administered on 01/11/19 11:00; Admin Dose 5,000 UNIT; Start 01/08/19 at 09:00 Amlodipine Besylate (Norvasc) 10 mg DAILY PO Last administered on 01/11/19 10:55; Admin Dose 10 MG; Start 01/08/19 at 09:00 Ascorbic Acid (Vitamin C) 500 mg DAILY PO Last administered on 01/11/19 10:54; Admin Dose 500 MG; Start 01/08/19 at 09:00 Aspirin (Aspirin) 81 mg DAILY PO Last administered on 01/11/19 10:54; Admin Dose 81 MG; Start 01/08/19 at 09:00 Atorvastatin Calcium (Lipitor) 40 mg HS PO Last administered on 01/10/19 21:07; Admin Dose 40 MG; Start 01/08/19 at 21:00 Bupropion HCl (Wellbutrin Sr) 150 mg BID PO Last administered on 01/11/19 10:54; Admin Dose 150 MG; Start 01/07/19 at 22:30 Carvedilol (Coreg) 12.5 mg BID PO Last administered on 01/11/19 10:55; Admin Dose 12.5 MG; Start 01/08/19 at 09:00 Clopidogrel Bisulfate (plaVIX) 75 mg DAILY PO Last administered on 01/11/19 10:54; Admin Dose 75 MG; Start 01/08/19 at 09:00 Famotidine (Pepcid) 20 mg DAILY PO Last administered on 01/11/19 10:56; Admin Dose 20 MG; Start 01/08/19 at 09:00 Hydralazine HCl (Apresoline) 75 mg TID PO Last administered on 01/11/19 13:13; Admin Dose 75 MG; Start 01/08/19 at 09:00 Lisinopril (Zestril) 20 mg DAILY PO Last administered on 01/08/19 09:36; Admin Dose 20 MG; Start 01/08/19 at 09:00; Status Hold Montelukast Sodium (Singulair) 10 mg HS PO Last administered on 01/10/19 21:07; Admin Dose 10 MG; Start 01/08/19 at 21:00 Ondansetron HCl (Zofran Tab) 4 mg Q6H PRN PO NAUSEA AND/OR VOMITING; Start 01/07/19 at 22:30 Sucralfate (Carafate) 1 gm AC MEALS AND BEDTIME PO Last administered on 01/11/19 18:04; Admin Dose 1 GM; Start 01/08/19 at 07:00 Zinc Sulfate (Zinc Sulfate) 220 mg DAILY PO Last administered on 01/11/19at 10:55; Admin Dose 220 MG; Start 01/08/19 at 09:00 Diagnostic Test (Pha) (Accu-Chek) 1 ea 02 XX Last administered on 01/08/19at 02:40; Admin Dose 1 EA; Start 01/08/19 at 02:00 Insulin Aspart (Novolog Insulin Pen) NOVOLOG *MODERATE* ALGORITHM WITH MEALS BEDTIME SC Last administered on 01/11/19 18:03; Admin Dose 2 UNIT; Start 01/08/19 at 08:00 Miscellaneous Information 1 ea NOTE XX ; Start 01/07/19 at 23:00 Glucose (Glutose) 15 gm Q15M PRN PO DECREASED GLUCOSE; Start 01/07/19 at 23:00 Glucose (Glutose) 22.5 gm Q15M PRN PO DECREASED GLUCOSE; Start 01/07/19 at 23:00 Dextrose (D50w Syringe) 25 ml Q15M PRN IV DECREASED GLUCOSE; Start 01/07/19 at 23:00 Dextrose (D50w Syringe) 50 ml Q15M PRN IV DECREASED GLUCOSE; Start 01/07/19 at 23:00 Glucagon (Glucagen) 1 mg Q15M PRN IM DECREASED GLUCOSE; Start 01/07/19 at 23:00 Glucose (Glutose) 15 gm Q15M PRN BUCCAL DECREASED GLUCOSE; Start 01/07/19 at 23:00 Miscellaneous Information (Pending Santyl Order For Wound Care) This patient rodríguez... PRN PRN XX WOUND CARE; Start 01/08/19 at 01:00 Collagenase (Santyl) 1 applic DAILY TOP Last administered on 01/11/19at 10:53; Admin Dose 1 APPLIC; Start 01/08/19 at 13:30 Sodium Hypochlorite (Dakins Diluted (40)) 1 applic DAILY TP Last administered on 01/11/19at 11:01; Admin Dose 1 APPLIC; Start 01/09/19 at 09:00 Collagenase (Santyl) 1 applic DAILY TOP Last administered on 01/11/19 10:53; Admin Dose 1 APPLIC; Start 01/09/19 at 09:00 Metronidazole 100 ml @ 100 mls/hr Q8 IVPB Last administered on 01/11/19 13:13; Admin Dose 100 MLS/HR; Start 01/09/19 at 14:00 Sodium Hypochlorite (Dakins Diluted ()) 1 applic DAILY TP Last administered on 01/11/19 11:01; Admin Dose 1 APPLIC; Start 01/09/19 at 18:30 Gentamicin Sulfate (Gentamicin 0.1% Cr) 1 applic TID TOP Last administered on 01/11/19 13:13; Admin Dose 1 APPLIC; Start 01/09/19 at 21:00 Vancomycin HCl (Vancomycin Oral Syringe) 250 mg Q6 PO Last administered on 01/11/19 18:04; Admin Dose 250 MG; Start 01/10/19 at 00:00 Insulin Aspart (Novolog Insulin Pen) 6 unit WITH MEALS SC Last administered on 01/11/19 18:02; Admin Dose 6 UNIT; Start 01/10/19 at 11:30 Insulin Glargine (Lantus) 19 units QHS SC Last administered on 01/10/19 21:33; Admin Dose 19 UNITS; Start 01/10/19 at 21:00 Gentamicin Sulfate (Gentamicin Iv Per Pharmacy) GENTAMICIN PER PHARMACY ... NOTE XX ; Start 01/10/19 at 16:30 Gentamicin Sulfate 290 mg/ Sodium Chloride 107.25 ml @ 107.25 mls/hr Q48H IVPB ; Start 01/12/19 at 23:00 Polyethylene Glycol (Miralax) 17 gm DAILY PRN PO CONSTIPATION; Start 01/11/19 at 16:30 SHAILA FRIAS DPYelena Jan 11, 2019 18:26
[2019-01-11 20:56] VITALS: BP 127/70; PULSE 77; RESP 18
[2019-01-11] MEDS: INSULIN GLARGINE [LANTus] (100 UNITS/ML) SYG SC SCH (21:56)
[2019-01-11] MEDS: ATORVASTATIN 40 MG TAB PO SCH (21:58)
[2019-01-11] MEDS: MONTELUKAST 10 MG TAB PO SCH (21:58)
[2019-01-12] MEDS: ACCU-CHEK XX SCH (02:00)
[2019-01-12] MEDS: VANCOMYCIN HCL 250 MG/5ML POSYG PO SCH ×4 (02:17→19:42)
[2019-01-12 03:30] VITALS: BP 137/72; PULSE 77; RESP 18
[2019-01-12] MEDS: metroNIDAZOLE 500 MG/NS (PMX) 100 ML IVPB SCH ×3 (05:04→22:01)
[2019-01-12 07:57] VITALS: BP 140/70; PULSE 77; RESP 18
[2019-01-12] MEDS: INSULIN ASPART [NOVOLOG] 3 ML PEN SC SCH ×7 (08:00→20:28)
[2019-01-12] MEDS: ASCORBIC ACID 500 MG TAB PO SCH (08:35)
[2019-01-12] MEDS: ASPIRIN 81 MG TAB PO SCH (08:35)
[2019-01-12] MEDS: ZINC SULFATE 220 MG CAP PO SCH (08:35)
[2019-01-12] MEDS: SUCRALFATE 1 GM TAB PO SCH ×4 (08:36→22:01)
[2019-01-12] MEDS: FAMOTIDINE 20 MG TAB PO SCH (08:36)
[2019-01-12] MEDS: CLOPIDOGREL 75 MG TAB PO SCH (08:36)
[2019-01-12] MEDS: BUPROPION (SR) 150 MG TAB PO SCH ×2 (08:36→20:30)
[2019-01-12] MEDS: HEPARIN 5,000 UNIT/1 ML VIAL SC SCH ×2 (08:37→20:28)
[2019-01-12] MEDS: COLLAGENASE 5 GM (UD JAR) TOP SCH ×2 (08:49)
[2019-01-12] MEDS: GENTAMICIN 0.1% CREAM 15GM TUBE TOP SCH ×3 (08:49→21:00)
[2019-01-12] MEDS: DAKINS 0.0125%(1/40) 473 ML SOLUTION TP SCH ×2 (08:49)
--- NOTE | 2019-01-12 11:25 | PN ---
Date/Time of Note Date/Time of Note DATE: 01/12/19 TIME: 11:25 Assessment/Plan VTE Prophylaxis Risk score (from Nsg)>0 risk: 3 SCD applied (from Nsg): Yes Pharmacological prophylaxis: heparin Lines/Catheters IV Catheter Type (from Nrsg): PICC Line Central line still needed: Yes Urinary Cath still in place: No Assessment/Plan Assessment/Plan 1. Chronic left foot wound with osteomyelitis - Podiatry on board and appreciate recommendations. Continue IV antibiotics and offloading of heels. s/p bedside debridement - ID on board and appreciate recommendations for antibiotics 2. C. difficile colitis - Flagyl and PO vanco - Lactobacillus 3. DM - Insulin on board. will adjust as needed - ISS and accuchecks 4. R[place] on CKD - Nephrology on board and appreciate recommendations. Cr continues to improve daily - renally dose all medications 5. Anemia - Monitor, transfuse as needed 6. CAD - continue on Plavix and home medications 7. Chronic depression - Continue home meds 8. Disposition - Continue current treatment - patient does not have proper insight into her medical condition. Does refuse SNF placement and once medically cleared by Podiatry, will d/c home with HHPT and IV antibiotics -Continue IV Flagyl/oral vanco for C. difficile colitis, will need ID and podiatry recommendations for further care, patient will likely need to be arrang ed with home health IV antibiotics once final cultures are done. Result Diagram: 01/12/19 0529 01/12/19 0529 Results 24hrs Laboratory Tests Test 01/11/19 12:07 01/11/19 17:42 01/11/19 21:54 01/12/19 05:29 Bedside Glucose 124 168 136 White Blood Count 7.4 Red Blood Count 3.45 L Hemoglobin 9.4 L Hematocrit 28.5 L Mean Corpuscular 82.6 Volume Mean Corpuscular 27.2 L Hemoglobin Mean Corpuscular 33.0 Hemoglobin Concent Red Cell 13.9 Distribution Width Platelet Count 330 Mean Platelet Volume 10.1 Immature 0.700 H Granulocytes % Neutrophils % 66.9 Lymphocytes % 24.7 Monocytes % 6.1 Eosinophils % 1.2 Basophils % 0.4 Nucleated Red Blood 0.0 Cells % Immature 0.050 H Granulocytes # Neutrophils # 4.9 Lymphocytes # 1.8 Monocytes # 0.5 Eosinophils # 0.1 Basophils # 0.0 Nucleated Red Blood 0.0 Cells # Sodium Level 139 Potassium Level 3.9 Chloride Level 108 Carbon Dioxide Level 24 Anion Gap 7 Blood Urea Nitrogen 31 H Creatinine 1.57 H Est Glomerular 34 L Filtrat Rate mL/min Glucose Level 140 # Calcium Level 8.6 Phosphorus Level 4.2 Magnesium Level 1.9 Test 01/12/19 08:05 Bedside Glucose 137 Subjective 24 Hr Interval Summary Free Text/Dictation Patient denies any acute issues. No acute overnight events. Exam/Review of Systems Exam Vitals Vital Signs Date Temp Pulse Resp B/P (MAP) Pulse Ox O2 O2 Flow FiO2 Time Delivery Rate 01/12/19 98.9 77 18 140/70 97 Room Air 07:57 (93) Intake and Output 01/11/19 01/11/19 01/12/19 1515:00 23:00 07:00 IntakeIntake Total 900 ml 100 ml 100 ml OutputOutput Total 300 ml BalanceBalance 600 ml 100 ml 100 ml Exam General: Patient is laying in bed and answers questions appropriately. no acute distress Neck: Supple, nontender, midline Respiratory: Clear to auscultation bilaterally. no wheezing Cardiovascular: regular rate and rhythm, no obvious murmurs Gastrointestinal: soft, non-tender to palpation, nondistended, bowel sounds heard. Neurological: Moves all extremities spontaneously Skin: Left foot wound, bandaged. no discharge or drainage Results Results 24hrs Laboratory Tests Test 01/11/19 12:07 01/11/19 17:42 01/11/19 21:54 01/12/19 05:29 Bedside Glucose 124 168 136 White Blood Count 7.4 Red Blood Count 3.45 L Hemoglobin 9.4 L Hematocrit 28.5 L Mean Corpuscular 82.6 Volume Mean Corpuscular 27.2 L Hemoglobin Mean Corpuscular 33.0 Hemoglobin Concent Red Cell 13.9 Distribution Width Platelet Count 330 Mean Platelet Volume 10.1 Immature 0.700 H Granulocytes % Neutrophils % 66.9 Lymphocytes % 24.7 Monocytes % 6.1 Eosinophils % 1.2 Basophils % 0.4 Nucleated Red Blood 0.0 Cells % Immature 0.050 H Granulocytes # Neutrophils # 4.9 Lymphocytes # 1.8 Monocytes # 0.5 Eosinophils # 0.1 Basophils # 0.0 Nucleated Red Blood 0.0 Cells # Sodium Level 139 Potassium Level 3.9 Chloride Level 108 Carbon Dioxide Level 24 Anion Gap 7 Blood Urea Nitrogen 31 H Creatinine 1.57 H Est Glomerular 34 L Filtrat Rate mL/min Glucose Level 140 # Calcium Level 8.6 Phosphorus Level 4.2 Magnesium Level 1.9 Test 01/12/19 08:05 Bedside Glucose 137 Medications Medication Current Medications IV Flush (NS 3 ml) 3 ml PER PROTOCOL IV ; Start 01/07/19 at 22:30 Ondansetron HCl (Zofran Inj) 4 mg Q6H PRN IV NAUSEA/VOMITING; Start 01/07/19 at 22:30 Acetaminophen (Tylenol Tab) 650 mg Q6H PRN PO .PAIN 1-3 OR TEMP; Start 01/07/19 at 22:30 Acetaminophen/ Hydrocodone Bitart ([place] (5/325)) 1 tab Q6H PRN PO .MOD PAIN 4- 6 Last administered on 01/12/19 04:54; Admin Dose 1 TAB; Start 01/07/19 at 22:30 Acetaminophen/ Hydrocodone Bitart ([place] (5/325)) 2 tab Q6H PRN PO .SEVERE PAIN 7-10 Last administered on 01/10/19 01:26; Admin Dose 2 TAB; Start 01/07/19 at 22:30 Heparin Sodium (Porcine) (Heparin (5000 Units/1ml)) 5,000 unit Q12 SC Last administered on 01/12/19 08:37; Admin Dose 5,000 UNIT; Start 01/08/19 at 09:00 Amlodipine Besylate (Norvasc) 10 mg DAILY PO Last administered on 01/11/19 10:55; Admin Dose 10 MG; Start 01/08/19 at 09:00 Ascorbic Acid (Vitamin C) 500 mg DAILY PO Last administered on 01/12/19 08:35; Admin Dose 500 MG; Start 01/08/19 at 09:00 Aspirin (Aspirin) 81 mg DAILY PO Last administered on 01/12/19 08:35; Admin Dose 81 MG; Start 01/08/19 at 09:00 Atorvastatin Calcium (Lipitor) 40 mg HS PO Last administered on 01/11/19 21:58; Admin Dose 40 MG; Start 01/08/19 at 21:00 Bupropion HCl (Wellbutrin Sr) 150 mg BID PO Last administered on 01/12/19 08: 36; Admin Dose 150 MG; Start 01/07/19 at 22:30 Carvedilol (Coreg) 12.5 mg BID PO Last administered on 01/12/19 08:35; Admin Dose 12.5 MG; Start 01/08/19 at 09:00 Clopidogrel Bisulfate (plaVIX) 75 mg DAILY PO Last administered on 01/12/19 08:36; Admin Dose 75 MG; Start 01/08/19 at 09:00 Famotidine (Pepcid) 20 mg DAILY PO Last administered on 01/12/19 08:36; Admin Dose 20 MG; Start 01/08/19 at 09:00 Hydralazine HCl (Apresoline) 75 mg TID PO Last administered on 01/12/19 08:35; Admin Dose 75 MG; Start 01/08/19 at 09:00 Lisinopril (Zestril) 20 mg DAILY PO Last administered on 01/08/19 09:36; Admin Dose 20 MG; Start 01/08/19 at 09:00 Montelukast Sodium (Singulair) 10 mg HS PO Last administered on 01/11/19 21:58; Admin Dose 10 MG; Start 01/08/19 at 21:00 Ondansetron HCl (Zofran Tab) 4 mg Q6H PRN PO NAUSEA AND/OR VOMITING; Start 01/07/19 at 22:30 Sucralfate (Carafate) 1 gm AC MEALS AND BEDTIME PO Last administered on 01/12/19 08:36; Admin Dose 1 GM; Start 01/08/19 at 07:00 Zinc Sulfate (Zinc Sulfate) 220 mg DAILY PO Last administered on 01/12/19 08:35; Admin Dose 220 MG; Start 01/08/19 at 09:00 Diagnostic Test (Pha) (Accu-Chek) 1 ea 02 XX Last administered on 01/08/19 02:40; Admin Dose 1 EA; Start 01/08/19 at 02:00 Insulin Aspart (Novolog Insulin Pen) NOVOLOG *MODERATE* ALGORITHM WITH MEALS BEDTIME SC Last administered on 01/11/19 18:03; Admin Dose 2 UNIT; Start 01/08/19 at 08:00 Miscellaneous Information 1 ea NOTE XX ; Start 01/07/19 at 23:00 Glucose (Glutose) 15 gm Q15M PRN PO DECREASED GLUCOSE; Start 01/07/19 at 23:00 Glucose (Glutose) 22.5 gm Q15M PRN PO DECREASED GLUCOSE; Start 01/07/19 at 23:00 Dextrose (D50w Syringe) 25 ml Q15M PRN IV DECREASED GLUCOSE; Start 01/07/19 at 23:00 Dextrose (D50w Syringe) 50 ml Q15M PRN IV DECREASED GLUCOSE; Start 01/07/19 at 23:00 Glucagon (Glucagen) 1 mg Q15M PRN IM DECREASED GLUCOSE; Start 01/07/19 at 23:00 Glucose (Glutose) 15 gm Q15M PRN BUCCAL DECREASED GLUCOSE; Start 01/07/19 at 23:00 Miscellaneous Information (Pending Santyl Order For Wound Care) This patient rodríguez... PRN PRN XX WOUND CARE; Start 01/08/19 at 01:00 Collagenase (Santyl) 1 applic DAILY TOP Last administered on 01/11/19at 10:53; Admin Dose 1 APPLIC; Start 01/08/19 at 13:30 Sodium Hypochlorite (Dakins Diluted (1/40)) 1 applic DAILY TP Last administered on 01/11/19 11:01; Admin Dose 1 APPLIC; Start 01/09/19 at 09:00 Collagenase (Santyl) 1 applic DAILY TOP Last administered on 01/11/19 10:53; Admin Dose 1 APPLIC; Start 01/09/19 at 09:00 Metronidazole 100 ml @ 100 mls/hr Q8 IVPB Last administered on 01/12/19at 05:04; Admin Dose 100 MLS/HR; Start 01/09/19 at 14:00 Sodium Hypochlorite (Dakins Diluted (1/40)) 1 applic DAILY TP Last administered on 01/11/19 11:01; Admin Dose 1 APPLIC; Start 01/09/19 at 18:30 Gentamicin Sulfate (Gentamicin 0.1% Cr) 1 applic TID TOP Last administered on 01/11/19at 13:13; Admin Dose 1 APPLIC; Start 01/09/19 at 21:00 Vancomycin HCl (Vancomycin Oral Syringe) 250 mg Q6 PO Last administered on 01/12/19at 05:04; Admin Dose 250 MG; Start 01/10/19 at 00:00 Insulin Aspart (Novolog Insulin Pen) 6 unit WITH MEALS SC Last administered on 01/12/19at 08:37; Admin Dose 6 UNIT; Start 01/10/19 at 11:30 Insulin Glargine (Lantus) 19 units QHS SC Last administered on 01/11/19at 21:56; Admin Dose 19 UNITS; Start 01/10/19 at 21:00 Gentamicin Sulfate (Gentamicin Iv Per Pharmacy) GENTAMICIN PER PHARMACY ... NOTE XX ; Start 01/10/19 at 16:30 Gentamicin Sulfate 290 mg/ Sodium Chloride 107.25 ml @ 107.25 mls/hr Q48H IVPB ; Start 01/12/19 at 23:00 Polyethylene Glycol (Miralax) 17 gm DAILY PRN PO CONSTIPATION; Start 01/11/19 at 16:30 SANCHEZ ANDERSON MD Jan 12, 2019 11:25
[2019-01-12 13:26] VITALS: BP 126/87; PULSE 75; RESP 16
--- NOTE | 2019-01-12 13:50 | PN ---
DATE: 01/12/2019 SUBJECTIVE: The patient is stable. No events overnight. No fever, chills, nausea, vomiting. OBJECTIVE: VITAL SIGNS: Blood pressure is 140/70, pulse 77, respiration 19, temperature 98.9. HEENT: Head is normocephalic. NECK: Supple. HEART: Regular rate. LUNGS: Show diminished breath sounds at the base. ABDOMEN: Soft, nontender to palpation without rebound or guarding. EXTREMITIES: Negative for clubbing, cyanosis. No edema. The patient's wounds are noted. NEUROLOGIC: No change in exam. MUSCULOSKELETAL: No joint effusion. MEDICATIONS: Have been reviewed. LABORATORY DATA: Have been reviewed. ASSESSMENT AND PLAN: 1. Nonoliguric acute kidney injury on top of chronic kidney disease with previous baseline creatinin e of 1.0 to 1.5 mg/dL. Etiology of acute kidney injury is secondary to hemodynamics. Renal function is improving slowly, returning back to baseline. Continue current treatment plans, supportive care, renally dose all meds. 2. Coronary artery disease with diabetic nephropathy, nephrotic range proteinuria. The patient is c urrently in acute injury as stated above. The patient's renal function is improving. We will resume the patient on ASHLEY inhibitor and monitor closely. 3. Anemia. Monitor hemoglobin and hematocrit levels. 4. Mineral bone disorder. Monitor calcium and phosphorus levels. 5. Metabolic acidosis secondary to acute kidney injury, improving. 6. Clostridium difficile. Continue oral vancomycin. 7. Left foot osteomyelitis. Continue current antibiotic therapy. 8. Hypertension. Continue current blood pressure regimen. Resume ASHLEY inhibitor. 9. Dyslipidemia. Continue statin therapy. 10. Diabetes. Continue current insulin regimen. Dictated By: RAYSHAWN FULLER DO NR/NTS Conf#: [id number] DID#: [id number] CC: YUNIEL ESCOBAR MD; SANCHEZ ANDERSON MD;*EndCC*
[2019-01-12] MEDS: AMLODIPINE 10 MG TAB PO SCH (13:57)
[2019-01-12] MEDS: LISINOPRIL 20 MG TAB PO SCH (13:57)
--- NOTE | 2019-01-12 14:17 | CONS ---
Assessment/Plan Assessment/Plan Hospital Course (Demo Recall) Patient is awake looks comfortable no fevers overnight. Microbiology: Left foot wound culture growing Pseudomonas. Stool for C. difficile was positive. Antimicrobials: Gentamicin, oral vancomycin, Flagyl Physical examination: Well-nourished well-developed middle-aged woman who is awake in no distress. Head atraumatic normocephalic neck is supple chest rise symmetrical breath sounds diminished bases. Heart: S1-S2. Abdomen soft bowel sounds present. Assessment: 1. Systemic inflammatory response syndrome on admission 2. Left diabetic foot ulceration/osteomyelitis 3. Charge code neuro arthropathy 4. Diabetes 5. Peripheral arterial disease 6. Acute kidney injury Plan: Remains stable, podiatry follows, she is on appropriate antibiotic regimen Consultation Date/Type/Reason Admit Date/Time Jan 07, 2019 at 21:39 Initial Consult Date Type of Consult id Date/Time of Note DATE: 01/12/19 TIME: 14:14 Exam/Review of Systems Exam Vitals Vital Signs Date Temp Pulse Resp B/P (MAP) Pulse Ox O2 O2 Flow FiO2 Time Delivery Rate 01/12/19 75 16 126/87 Room Air 13:26 (100) 01/12/19 98.9 97 07:57 Intake and Output 01/11/19 01/11/19 01/12/19 1515:00 23:00 07:00 IntakeIntake Total 900 ml 100 ml 100 ml OutputOutput Total 300 ml BalanceBalance 600 ml 100 ml 100 ml Results Result Diagram: 01/12/19 0529 01/12/19 0529 Results 24hrs Laboratory Tests Test 01/11/19 17:42 01/11/19 21:54 01/12/19 05:29 01/12/19 08:05 Bedside Glucose 168 136 137 White Blood Count 7.4 Red Blood Count 3.45 L Hemoglobin 9.4 L Hematocrit 28.5 L Mean Corpuscular 82.6 Volume Mean Corpuscular 27.2 L Hemoglobin Mean Corpuscular 33.0 Hemoglobin Concent Red Cell 13.9 Distribution Width Platelet Count 330 Mean Platelet Volume 10.1 Immature 0.700 H Granulocytes % Neutrophils % 66.9 Lymphocytes % 24.7 Monocytes % 6.1 Eosinophils % 1.2 Basophils % 0.4 Nucleated Red Blood 0.0 Cells % Immature 0.050 H Granulocytes # Neutrophils # 4.9 Lymphocytes # 1.8 Monocytes # 0.5 Eosinophils # 0.1 Basophils # 0.0 Nucleated Red Blood 0.0 Cells # Sodium Level 139 Potassium Level 3.9 Chloride Level 108 Carbon Dioxide Level 24 Anion Gap 7 Blood Urea Nitrogen 31 H Creatinine 1.57 H Est Glomerular 34 L Filtrat Rate mL/min Glucose Level 140 # Calcium Level 8.6 Phosphorus Level 4.2 Magnesium Level 1.9 Test 01/12/19 12:50 Bedside Glucose 116 Medications Medication Current Medications IV Flush (NS 3 ml) 3 ml PER PROTOCOL IV ; Start 01/07/19 at 22:30 Ondansetron HCl (Zofran Inj) 4 mg Q6H PRN IV NAUSEA/VOMITING Last administered on 01/12/19 13:11; Admin Dose 4 MG; Start 01/07/19 at 22:30 Acetaminophen (Tylenol Tab) 650 mg Q6H PRN PO .PAIN 1-3 OR TEMP; Start 01/07/19 at 22:30 Acetaminophen/ Hydrocodone Bitart ([place] (5/325)) 1 tab Q6H PRN PO .MOD PAIN 4- 6 Last administered on 01/12/19 04:54; Admin Dose 1 TAB; Start 01/07/19 at 22:30 Acetaminophen/ Hydrocodone Bitart ([place] (5/325)) 2 tab Q6H PRN PO .SEVERE PAIN 7-10 Last administered on 01/10/19 01:26; Admin Dose 2 TAB; Start 01/07/19 at 22:30 Heparin Sodium (Porcine) (Heparin (5000 Units/1ml)) 5,000 unit Q12 SC Last administered on 01/12/19 08:37; Admin Dose 5,000 UNIT; Start 01/08/19 at 09:00 Amlodipine Besylate (Norvasc) 10 mg DAILY PO Last administered on 01/12/19 13:57; Admin Dose 10 MG; Start 01/08/19 at 09:00 Ascorbic Acid (Vitamin C) 500 mg DAILY PO Last administered on 01/12/19 08:35; Admin Dose 500 MG; Start 01/08/19 at 09:00 Aspirin (Aspirin) 81 mg DAILY PO Last administered on 01/12/19 08:35; Admin Dose 81 MG; Start 01/08/19 at 09:00 Atorvastatin Calcium (Lipitor) 40 mg HS PO Last administered on 01/11/19 21:58; Admin Dose 40 MG; Start 01/08/19 at 21:00 Bupropion HCl (Wellbutrin Sr) 150 mg BID PO Last administered on 01/12/19 0 8:36; Admin Dose 150 MG; Start 01/07/19 at 22:30 Carvedilol (Coreg) 12.5 mg BID PO Last administered on 01/12/19 08:35; Admin Dose 12.5 MG; Start 01/08/19 at 09:00 Clopidogrel Bisulfate (plaVIX) 75 mg DAILY PO Last administered on 01/12/19 08:36; Admin Dose 75 MG; Start 01/08/19 at 09:00 Famotidine (Pepcid) 20 mg DAILY PO Last administered on 01/12/19 08:36; Admin Dose 20 MG; Start 01/08/19 at 09:00 Hydralazine HCl (Apresoline) 75 mg TID PO Last administered on 01/12/19 13:56; Admin Dose 75 MG; Start 01/08/19 at 09:00 Lisinopril (Zestril) 20 mg DAILY PO Last administered on 01/12/19 13:57; Admin Dose 20 MG; Start 01/08/19 at 09:00 Montelukast Sodium (Singulair) 10 mg HS PO Last administered on 01/11/19 21:58; Admin Dose 10 MG; Start 01/08/19 at 21:00 Ondansetron HCl (Zofran Tab) 4 mg Q6H PRN PO NAUSEA AND/OR VOMITING; Start 01/07/19 at 22:30 Sucralfate (Carafate) 1 gm AC MEALS AND BEDTIME PO Last administered on 01/12/19 13:11; Admin Dose 1 GM; Start 01/08/19 at 07:00 Zinc Sulfate (Zinc Sulfate) 220 mg DAILY PO Last administered on 01/12/19 08:35; Admin Dose 220 MG; Start 01/08/19 at 09:00 Diagnostic Test (Pha) (Accu-Chek) 1 ea 02 XX Last administered on 01/08/19 02:40; Admin Dose 1 EA; Start 01/08/19 at 02:00 Insulin Aspart (Novolog Insulin Pen) NOVOLOG *MODERATE* ALGORITHM WITH MEALS BEDTIME SC Last administered on 4/15/19at 18:03; Admin Dose 2 UNIT; Start 01/08/19 at 08:00 Miscellaneous Information 1 ea NOTE XX ; Start 01/07/19 at 23:00 Glucose (Glutose) 15 gm Q15M PRN PO DECREASED GLUCOSE; Start 01/07/19 at 23:00 Glucose (Glutose) 22.5 gm Q15M PRN PO DECREASED GLUCOSE; Start 01/07/19 at 23:00 Dextrose (D50w Syringe) 25 ml Q15M PRN IV DECREASED GLUCOSE; Start 01/07/19 at 23:00 Dextrose (D50w Syringe) 50 ml Q15M PRN IV DECREASED GLUCOSE; Start 01/07/19 at 23:00 Glucagon (Glucagen) 1 mg Q15M PRN IM DECREASED GLUCOSE; Start 01/07/19 at 23:00 Glucose (Glutose) 15 gm Q15M PRN BUCCAL DECREASED GLUCOSE; Start 01/07/19 at 23:00 Miscellaneous Information (Pending Santyl Order For Wound Care) This patient rodríguez... PRN PRN XX WOUND CARE; Start 01/08/19 at 01:00 Collagenase (Santyl) 1 applic DAILY TOP Last administered on 01/11/19at 10:53; Admin Dose 1 APPLIC; Start 01/08/19 at 13:30 Sodium Hypochlorite (Dakins Diluted (1/40)) 1 applic DAILY TP Last administered on 01/11/19at 11:01; Admin Dose 1 APPLIC; Start 01/09/19 at 09:00 Collagenase (Santyl) 1 applic DAILY TOP Last administered on 01/11/19 10:53; Admin Dose 1 APPLIC; Start 01/09/19 at 09:00 Metronidazole 100 ml @ 100 mls/hr Q8 IVPB Last administered on 01/12/19 13:11; Admin Dose 100 MLS/HR; Start 01/09/19 at 14:00 Sodium Hypochlorite (Dakins Diluted (1/40)) 1 applic DAILY TP Last administered on 01/11/19 11:01; Admin Dose 1 APPLIC; Start 01/09/19 at 18:30 Gentamicin Sulfate (Gentamicin 0.1% Cr) 1 applic TID TOP Last administered on 01/11/19at 13:13; Admin Dose 1 APPLIC; Start 01/09/19 at 21:00 Vancomycin HCl (Vancomycin Oral Syringe) 250 mg Q6 PO Last administered on 01/12/19at 13:11; Admin Dose 250 MG; Start 01/10/19 at 00:00 Insulin Aspart (Novolog Insulin Pen) 6 unit WITH MEALS SC Last administered on 01/12/19at 13:13; Admin Dose 6 UNIT; Start 01/10/19 at 11:30 Insulin Glargine (Lantus) 19 units QHS SC Last administered on 01/11/19at 21:56; Admin Dose 19 UNITS; Start 01/10/19 at 21:00 Gentamicin Sulfate (Gentamicin Iv Per Pharmacy) GENTAMICIN PER PHARMACY ... NOTE XX ; Start 01/10/19 at 16:30 Gentamicin Sulfate 290 mg/ Sodium Chloride 107.25 ml @ 107.25 mls/hr Q48H IVPB ; Start 01/12/19 at 23:00 Polyethylene Glycol (Miralax) 17 gm DAILY PRN PO CONSTIPATION; Start 01/11/19 at 16:30 KAYODE WESLEY NP Jan 12, 2019 14:17
[2019-01-12 14:56] VITALS: BP 128/66; PULSE 78; RESP 18
[2019-01-12] MEDS: LACTOBACILLUS RHAMNOSUS CAP PO SCH (17:41)
[2019-01-12 19:30] VITALS: BP 166/84; PULSE 80; RESP 18
[2019-01-12] MEDS: INSULIN GLARGINE [LANTus] (100 UNITS/ML) SYG SC SCH (20:29)
[2019-01-12] MEDS: MONTELUKAST 10 MG TAB PO SCH (20:30)
[2019-01-12] MEDS: ATORVASTATIN 40 MG TAB PO SCH (20:30)
[2019-01-12] MEDS ORDERED: GENTAMICIN 290 MG in SOD CHLORIDE 0.9% 100 ML IVPB SCH (23:00)
[2019-01-13] MEDS: VANCOMYCIN HCL 250 MG/5ML POSYG PO SCH ×4 (00:14→17:32)
[2019-01-13 01:55] VITALS: BP 151/71; PULSE 84; RESP 18
[2019-01-13] MEDS: ACCU-CHEK XX SCH (02:00)
[2019-01-13] MEDS: metroNIDAZOLE 500 MG/NS (PMX) 100 ML IVPB SCH ×3 (05:55→21:55)
[2019-01-13] MEDS: INSULIN ASPART [NOVOLOG] 3 ML PEN SC SCH ×7 (08:00→20:29)
[2019-01-13 08:11] VITALS: BP 150/78; PULSE 76; RESP 18
[2019-01-13] MEDS: HEPARIN 5,000 UNIT/1 ML VIAL SC SCH ×2 (08:20→20:21)
[2019-01-13] MEDS: ASCORBIC ACID 500 MG TAB PO SCH (08:21)
[2019-01-13] MEDS: FAMOTIDINE 20 MG TAB PO SCH (08:21)
[2019-01-13] MEDS: ZINC SULFATE 220 MG CAP PO SCH (08:21)
[2019-01-13] MEDS: SUCRALFATE 1 GM TAB PO SCH ×4 (08:21→20:25)
[2019-01-13] MEDS: BUPROPION (SR) 150 MG TAB PO SCH ×2 (08:21→20:16)
[2019-01-13] MEDS: CLOPIDOGREL 75 MG TAB PO SCH (08:21)
[2019-01-13] MEDS: ASPIRIN 81 MG TAB PO SCH (08:21)
[2019-01-13] MEDS: LACTOBACILLUS RHAMNOSUS CAP PO SCH ×3 (08:21→17:32)
[2019-01-13] MEDS: LISINOPRIL 20 MG TAB PO SCH ×3 (08:22→20:16)
[2019-01-13] MEDS: AMLODIPINE 10 MG TAB PO SCH (08:22)
[2019-01-13] MEDS: GENTAMICIN 0.1% CREAM 15GM TUBE TOP SCH ×3 (08:23→20:18)
[2019-01-13] MEDS: DAKINS 0.0125%(1/40) 473 ML SOLUTION TP SCH ×2 (08:23)
[2019-01-13] MEDS: COLLAGENASE 5 GM (UD JAR) TOP SCH ×2 (08:23)
[2019-01-13 09:35] VITALS: BP 147/68
--- NOTE | 2019-01-13 09:40 | PN ---
DATE: 01/13/2019 SUBJECTIVE: The patient is stable. No events overnight. No fevers, chills, nausea, or vomiting. OBJECTIVE: VITAL SIGNS: Blood pressure is 150/78, respirations 18, pulse 76, temperature 98.5. HEENT: Head is normocephalic. NECK: Supple. HEART: Regular rate. LUNGS: Show diminished breath sounds at the base. ABDOMEN: Soft, nontender to palpation without rebound or guarding. EXTREMITIES: Negative for clubbing, cyanosis, no edema. DERMATOLOGIC: No rashes. MUSCULOSKELETAL: No joint effusion. NEUROLOGIC: No change in exam. MEDICATIONS: Reviewed. LABORATORY DATA: Reviewed. MICROBIOLOGY: Cultures have been reviewed. ASSESSMENT AND PLAN: 1. Nonoliguric acute kidney injury on top of chronic kidney disease with previous baseline creatinin e of 1.0 to 1.5 mg/dL. Etiology of acute kidney injury is secondary to hemodynamics. Renal function is stable currently at baseline. Continue current treatment plan, supportive care, renally dose all medicines. 2. Chronic kidney disease secondary to diabetic nephropathy with nephrotic range proteinuria. [place] current medical management as stated above. The patient has been started on ASHLEY inhibitor. We w ill titrate and monitor renal function closely. 3. Anemia. Monitor hemoglobin and hematocrit levels. 4. Mineral bone disorder, monitor calcium and phosphorus levels. 5. Metabolic acidosis secondary to acute kidney injury, improving. 6. Clostridium difficile. Continue oral vancomycin. 7. Left foot osteomyelitis. Continue current antibiotic therapy. Continue wound care. 8. Hypertension, improving. Up-titrate ASHLEY inhibitor. 9. Dyslipidemia. Continue statin therapy. 10. Diabetes. Continue current insulin regimen. Dictated By: RAYSHAWN FULLER DO NR/NTS Conf#: [id number] DID#: [id number] CC: YUNIEL ESCOBAR MD; SANCHEZ ANDERSON MD;*EndCC*
--- NOTE | 2019-01-13 12:27 | CONS ---
Assessment/Plan Assessment/Plan Hospital Course (Demo Recall) All noted, no acute events, looks comfortale Microbiology: Left foot wound culture growing Pseudomonas. Stool for C. difficile was positive. Antimicrobials: Gentamicin, oral vancomycin, Flagyl Physical examination: Well-nourished well-developed middle-aged woman who is awake in no distress. Head atraumatic normocephalic neck is supple chest rise symmetrical breath sounds diminished bases. Heart: S1-S2. Abdomen soft bowel sounds present. Assessment: 1. Systemic inflammatory response syndrome on admission 2. Left diabetic foot ulceration/osteomyelitis 3. Charge code neuro arthropathy 4. Diabetes 5. Peripheral arterial disease 6. Acute kidney injury Plan: Remains stable, per dw podiatry will change Gent to topical, continue PO Vanco and Flagyl Consultation Date/Type/Reason Admit Date/Time Jan 07, 2019 at 21:39 Initial Consult Date Type of Consult id Date/Time of Note DATE: 01/13/19 TIME: 12:26 Exam/Review of Systems Exam Vitals Vital Signs Date Temp Pulse Resp B/P (MAP) Pulse Ox O2 O2 Flow FiO2 Time Delivery Rate 01/13/19 147/68 09:35 (94) 01/13/19 98.5 76 18 94 Room Air 08:11 Intake and Output 01/12/19 01/12/19 01/13/19 1515:00 23:00 07:00 IntakeIntake Total 740 ml 400 ml 307.25 ml OutputOutput Total 700 ml 950 ml BalanceBalance 40 ml -550 ml 307.25 ml Results Result Diagram: 01/13/19 0606 01/13/19 0606 Results 24hrs Laboratory Tests Test 01/12/19 12:50 01/12/19 17:44 01/12/19 20:24 01/13/19 02:07 Bedside Glucose 116 179 229 H 112 Test 01/13/19 06:06 01/13/19 08:16 White Blood Count 8.0 Red Blood Count 3.46 L Hemoglobin 9.5 L Hematocrit 29.3 L Mean Corpuscular 84.7 Volume Mean Corpuscular 27.5 L Hemoglobin Mean Corpuscular 32.4 Hemoglobin Concent Red Cell 13.9 Distribution Width Platelet Count 326 Mean Platelet Volume 10.1 Immature 0.600 H Granulocytes % Neutrophils % 67.2 Lymphocytes % 23.9 Monocytes % 6.3 Eosinophils % 1.6 Basophils % 0.4 Nucleated Red Blood 0.0 Cells % Immature 0.050 H Granulocytes # Neutrophils # 5.3 Lymphocytes # 1.9 Monocytes # 0.5 Eosinophils # 0.1 Basophils # 0.0 Nucleated Red Blood 0.0 Cells # Sodium Level 139 Potassium Level 3.9 Chloride Level 110 Carbon Dioxide Level 26 Anion Gap 3 L Blood Urea Nitrogen 32 H Creatinine 1.64 H Est Glomerular 33 L Filtrat Rate mL/min Glucose Level 116 Calcium Level 9.0 Phosphorus Level 4.2 Magnesium Level 1.9 Bedside Glucose 133 Medications Medication Current Medications IV Flush (NS 3 ml) 3 ml PER PROTOCOL IV ; Start 01/07/19 at 22:30 Ondansetron HCl (Zofran Inj) 4 mg Q6H PRN IV NAUSEA/VOMITING Last administered on 01/12/19 13:11; Admin Dose 4 MG; Start 01/07/19 at 22:30 Acetaminophen (Tylenol Tab) 650 mg Q6H PRN PO .PAIN 1-3 OR TEMP; Start 01/07/19 at 22:30 Acetaminophen/ Hydrocodone Bitart ([place] (5/325)) 1 tab Q6H PRN PO .MOD PAIN 4- 6 Last administered on 01/12/19 04:54; Admin Dose 1 TAB; Start 01/07/19 at 22:30 Acetaminophen/ Hydrocodone Bitart ([place] (5/325)) 2 tab Q6H PRN PO .SEVERE PAIN 7-10 Last administered on 01/10/19 01:26; Admin Dose 2 TAB; Start 01/07/19 at 22:30 Heparin Sodium (Porcine) (Heparin (5000 Units/1ml)) 5,000 unit Q12 SC Last administered on 01/13/19 08:20; Admin Dose 5,000 UNIT; Start 01/08/19 at 09:00 Amlodipine Besylate (Norvasc) 10 mg DAILY PO Last administered on 01/13/19 08:22; Admin Dose 10 MG; Start 01/08/19 at 09:00 Ascorbic Acid (Vitamin C) 500 mg DAILY PO Last administered on 01/13/19 08:21; Admin Dose 500 MG; Start 01/08/19 at 09:00 Aspirin (Aspirin) 81 mg DAILY PO Last administered on 01/13/19 08:21; Admin Dose 81 MG; Start 01/08/19 at 09:00 Atorvastatin Calcium (Lipitor) 40 mg HS PO Last administered on 01/12/19 20:30; Admin Dose 40 MG; Start 01/08/19 at 21:00 Bupropion HCl (Wellbutrin Sr) 150 mg BID PO Last administered on 01/13/19 08:21; Admin Dose 150 MG; Start 01/07/19 at 22:30 Carvedilol (Coreg) 12.5 mg BID PO Last administered on 01/13/19 08:22; Admin Dose 12.5 MG; Start 01/08/19 at 09:00 Clopidogrel Bisulfate (plaVIX) 75 mg DAILY PO Last administered on 01/13/19 08:21; Admin Dose 75 MG; Start 01/08/19 at 09:00 Famotidine (Pepcid) 20 mg DAILY PO Last administered on 01/13/19 08:21; Admin Dose 20 MG; Start 01/08/19 at 09:00 Hydralazine HCl (Apresoline) 75 mg TID PO Last administered on 01/13/19 08:22; Admin Dose 75 MG; Start 01/08/19 at 09:00 Montelukast Sodium (Singulair) 10 mg HS PO Last administered on 01/12/19 20:30; Admin Dose 10 MG; Start 01/08/19 at 21:00 Ondansetron HCl (Zofran Tab) 4 mg Q6H PRN PO NAUSEA AND/OR VOMITING; Start 01/07/19 at 22:30 Sucralfate (Carafate) 1 gm AC MEALS AND BEDTIME PO Last administered on 01/13/19 12:21; Admin Dose 1 GM; Start 01/08/19 at 07:00 Zinc Sulfate (Zinc Sulfate) 220 mg DAILY PO Last administered on 01/13/19 08:21; Admin Dose 220 MG; Start 01/08/19 at 09:00 Diagnostic Test (Pha) (Accu-Chek) 1 ea 02 XX Last administered on 01/08/19 02:40; Admin Dose 1 EA; Start 01/08/19 at 02:00 Insulin Aspart (Novolog Insulin Pen) NOVOLOG *MODERATE* ALGORITHM WITH MEALS BEDTIME SC Last administered on 01/13/19 12:23; Admin Dose 4 UNIT; Start 01/08/19 at 08:00 Miscellaneous Information 1 ea NOTE XX ; Start 01/07/19 at 23:00 Glucose (Glutose) 15 gm Q15M PRN PO DECREASED GLUCOSE; Start 01/07/19 at 23:00 Glucose (Glutose) 22.5 gm Q15M PRN PO DECREASED GLUCOSE; Start 01/07/19 at 23:00 Dextrose (D50w Syringe) 25 ml Q15M PRN IV DECREASED GLUCOSE; Start 01/07/19 at 23:00 Dextrose (D50w Syringe) 50 ml Q15M PRN IV DECREASED GLUCOSE; Start 01/07/19 at 23:00 Glucagon (Glucagen) 1 mg Q15M PRN IM DECREASED GLUCOSE; Start 01/07/19 at 23:00 Glucose (Glutose) 15 gm Q15M PRN BUCCAL DECREASED GLUCOSE; Start 01/07/19 at 23:00 Miscellaneous Information (Pending Santyl Order For Wound Care) This patient rodríguez... PRN PRN XX WOUND CARE; Start 01/08/19 at 01:00 Collagenase (Santyl) 1 applic DAILY TOP Last administered on 01/11/19at 10:53; Admin Dose 1 APPLIC; Start 01/08/19 at 13:30 Sodium Hypochlorite (Dakins Diluted (1/40)) 1 applic DAILY TP Last administered on 01/11/19at 11:01; Admin Dose 1 APPLIC; Start 01/09/19 at 09:00 Collagenase (Santyl) 1 applic DAILY TOP Last administered on 01/11/19at 10:53; Admin Dose 1 APPLIC; Start 01/09/19 at 09:00 Metronidazole 100 ml @ 100 mls/hr Q8 IVPB Last administered on 01/13/19at 0 5:55; Admin Dose 100 MLS/HR; Start 01/09/19 at 14:00 Sodium Hypochlorite (Dakins Diluted (1/40)) 1 applic DAILY TP Last administered on 01/11/19at 11:01; Admin Dose 1 APPLIC; Start 01/09/19 at 18:30 Gentamicin Sulfate (Gentamicin 0.1% Cr) 1 applic TID TOP Last administered on 01/11/19at 13:13; Admin Dose 1 APPLIC; Start 01/09/19 at 21:00 Vancomycin HCl (Vancomycin Oral Syringe) 250 mg Q6 PO Last administered on 01/13/19at 12:21; Admin Dose 250 MG; Start 01/10/19 at 00:00 Insulin Aspart (Novolog Insulin Pen) 6 unit WITH MEALS SC Last administered on 01/13/19 12:22; Admin Dose 6 UNIT; Start 01/10/19 at 11:30 Insulin Glargine (Lantus) 19 units QHS SC Last administered on 01/12/19 20:29; Admin Dose 19 UNITS; Start 01/10/19 at 21:00 Gentamicin Sulfate (Gentamicin Iv Per Pharmacy) GENTAMICIN PER PHARMACY ... NOTE XX ; Start 01/10/19 at 16:30 Gentamicin Sulfate 290 mg/ Sodium Chloride 107.25 ml @ 107.25 mls/hr Q48H IVPB Last administered on 01/12/19 23:22; Admin Dose 107.25 MLS/HR; Start 01/12/19 at 23:00 Polyethylene Glycol (Miralax) 17 gm DAILY PRN PO CONSTIPATION; Start 01/11/19 at 16:30 Lactobacillus Acidophilus/ Rhamnosus (Culturelle) 1 cap WITH MEALS PO Last administered on 01/13/19at 12:21; Admin Dose 1 CAP; Start 01/12/19 at 17:35 Lisinopril (Zestril) 20 mg BID PO Last administered on 01/13/19at 09:36; Admin Dose 20 MG; Start 01/13/19 at 09:00 KAYODE WESLEY NP Jan 13, 2019 12:27
[2019-01-13 15:18] VITALS: BP 118/69; PULSE 78; RESP 18
--- NOTE | 2019-01-13 15:24 | PN ---
Date/Time of Note Date/Time of Note DATE: 01/13/19 TIME: 15:19 Assessment/Plan VTE Prophylaxis Risk score (from Ns)>0 risk: 4 SCD applied (from Ns): Yes Pharmacological prophylaxis: heparin Lines/Catheters IV Catheter Type (from Nrsg): PICC Line Central line still needed: Yes Urinary Cath still in place: No Assessment/Plan Assessment/Plan 1. Chronic left foot wound with osteomyelitis - Podiatry on board and appreciate recommendations. Continue IV antibiotics and offloading of heels. s/p bedside debridement - ID on board and appreciate recommendations for antibiotics 2. C. difficile colitis - Flagyl and PO vanco - Lactobacillus 3. DM - Insulin on board. will adjust as needed - ISS and accuchecks 4. R[place] on CKD- improving - Nephrology on board and appreciate recommendations. - renally dose all medications 5. Anemia - Monitor, transfuse as needed 6. CAD - continue on Plavix and home medications 7. Chronic depression - Continue home meds 8. Disposition - Continue current treatment - Will touch base with Podiatry if any further interventions needed. Will consult CM for HHPT and IV antibiotics Result Diagram: 01/13/19 0601/13/1906 Results 24hrs Laboratory Tests Test 01/12/19 17:44 01/12/19 20:24 01/13/19 02:07 01/13/19 06:06 Bedside Glucose 179 229 H 112 White Blood Count 8.0 Red Blood Count 3.46 L Hemoglobin 9.5 L Hematocrit 29.3 L Mean Corpuscular 84.7 Volume Mean Corpuscular 27.5 L Hemoglobin Mean Corpuscular 32.4 Hemoglobin Concent Red Cell 13.9 Distribution Width Platelet Count 326 Mean Platelet Volume 10.1 Immature 0.600 H Granulocytes % Neutrophils % 67.2 Lymphocytes % 23.9 Monocytes % 6.3 Eosinophils % 1.6 Basophils % 0.4 Nucleated Red Blood 0.0 Cells % Immature 0.050 H Granulocytes # Neutrophils # 5.3 Lymphocytes # 1.9 Monocytes # 0.5 Eosinophils # 0.1 Basophils # 0.0 Nucleated Red Blood 0.0 Cells # Sodium Level 139 Potassium Level 3.9 Chloride Level 110 Carbon Dioxide Level 26 Anion Gap 3 L Blood Urea Nitrogen 32 H Creatinine 1.64 H Est Glomerular 33 L Filtrat Rate mL/min Glucose Level 116 Calcium Level 9.0 Phosphorus Level 4.2 Magnesium Level 1.9 Test 01/13/19 08:16 01/13/19 12:19 Bedside Glucose 133 201 Subjective 24 Hr Interval Summary Free Text/Dictation Patient denies any acute issues and no overnight events. Exam/Review of Systems Exam Vitals Vital Signs Date Temp Pulse Resp B/P (MAP) Pulse Ox O2 O2 Flow FiO2 Time Delivery Rate 01/13/19 98.4 78 18 118/69 96 Room Air 15:18 (85) Intake and Output 01/12/19 01/12/19 01/13/19 1414:59 22:59 06:59 IntakeIntake Total 740 ml 400 ml 307.25 ml OutputOutput Total 700 ml 950 ml BalanceBalance 40 ml -550 ml 307.25 ml Exam General: Patient is laying in bed and answers questions appropriately. no acute distress Neck: Supple, nontender, midline Respiratory: Clear to auscultation bilaterally. no wheezing Cardiovascular: regular rate and rhythm, no obvious murmurs Gastrointestinal: soft, non-tender to palpation, nondistended, bowel sounds hea rd. Skin: Left foot wound, bandaged. no discharge or drainage Results Results 24hrs Laboratory Tests Test 01/12/19 17:44 01/12/19 20:24 01/13/19 02:07 01/13/19 06:06 Bedside Glucose 179 229 H 112 White Blood Count 8.0 Red Blood Count 3.46 L Hemoglobin 9.5 L Hematocrit 29.3 L Mean Corpuscular 84.7 Volume Mean Corpuscular 27.5 L Hemoglobin Mean Corpuscular 32.4 Hemoglobin Concent Red Cell 13.9 Distribution Width Platelet Count 326 Mean Platelet Volume 10.1 Immature 0.600 H Granulocytes % Neutrophils % 67.2 Lymphocytes % 23.9 Monocytes % 6.3 Eosinophils % 1.6 Basophils % 0.4 Nucleated Red Blood 0.0 Cells % Immature 0.050 H Granulocytes # Neutrophils # 5.3 Lymphocytes # 1.9 Monocytes # 0.5 Eosinophils # 0.1 Basophils # 0.0 Nucleated Red Blood 0.0 Cells # Sodium Level 139 Potassium Level 3.9 Chloride Level 110 Carbon Dioxide Level 26 Anion Gap 3 L Blood Urea Nitrogen 32 H Creatinine 1.64 H Est Glomerular 33 L Filtrat Rate mL/min Glucose Level 116 Calcium Level 9.0 Phosphorus Level 4.2 Magnesium Level 1.9 Test 01/13/19 08:16 01/13/19 12:19 Bedside Glucose 133 201 Medications Medication Current Medications IV Flush (NS 3 ml) 3 ml PER PROTOCOL IV ; Start 01/07/19 at 22:30 Ondansetron HCl (Zofran Inj) 4 mg Q6H PRN IV NAUSEA/VOMITING Last administered on 01/12/19 13:11; Admin Dose 4 MG; Start 01/07/19 at 22:30 Acetaminophen (Tylenol Tab) 650 mg Q6H PRN PO .PAIN 1-3 OR TEMP; Start 01/07/19 at 22:30 Acetaminophen/ Hydrocodone Bitart ([place] (5/325)) 1 tab Q6H PRN PO .MOD PAIN 4- 6 Last administered on 01/12/19 04:54; Admin Dose 1 TAB; Start 01/07/19 at 22:30 Acetaminophen/ Hydrocodone Bitart ([place] (5/325)) 2 tab Q6H PRN PO .SEVERE PAIN 7-10 Last administered on 01/10/19 01:26; Admin Dose 2 TAB; Start 01/07/19 at 22:30 Heparin Sodium (Porcine) (Heparin (5000 Units/1ml)) 5,000 unit Q12 SC Last administered on 01/13/19 08:20; Admin Dose 5,000 UNIT; Start 01/08/19 at 09:00 Amlodipine Besylate (Norvasc) 10 mg DAILY PO Last administered on 01/13/19 08:22; Admin Dose 10 MG; Start 01/08/19 at 09:00 Ascorbic Acid (Vitamin C) 500 mg DAILY PO Last administered on 01/13/19 08:21; Admin Dose 500 MG; Start 01/08/19 at 09:00 Aspirin (Aspirin) 81 mg DAILY PO Last administered on 01/13/19 08:21; Admin Dose 81 MG; Start 01/08/19 at 09:00 Atorvastatin Calcium (Lipitor) 40 mg HS PO Last administered on 01/12/19 20:30; Admin Dose 40 MG; Start 01/08/19 at 21:00 Bupropion HCl (Wellbutrin Sr) 150 mg BID PO Last administered on 01/13/19 08:21; Admin Dose 150 MG; Start 01/07/19 at 22:30 Carvedilol (Coreg) 12.5 mg BID PO Last administered on 01/13/19 08:22; Admin Dose 12.5 MG; Start 01/08/19 at 09:00 Clopidogrel Bisulfate (plaVIX) 75 mg DAILY PO Last administered on 01/13/19 08:21; Admin Dose 75 MG; Start 01/08/19 at 09:00 Famotidine (Pepcid) 20 mg DAILY PO Last administered on 01/13/19 08:21; Admin Dose 20 MG; Start 01/08/19 at 09:00 Hydralazine HCl (Apresoline) 75 mg TID PO Last administered on 01/13/19at 13:53; Admin Dose 75 MG; Start 01/08/19 at 09:00 Montelukast Sodium (Singulair) 10 mg HS PO Last administered on 01/12/19 20:30; Admin Dose 10 MG; Start 01/08/19 at 21:00 Ondansetron HCl (Zofran Tab) 4 mg Q6H PRN PO NAUSEA AND/OR VOMITING; Start 01/07/19 at 22:30 Sucralfate (Carafate) 1 gm AC MEALS AND BEDTIME PO Last administered on 01/13/19 12:21; Admin Dose 1 GM; Start 01/08/19 at 07:00 Zinc Sulfate (Zinc Sulfate) 220 mg DAILY PO Last administered on 01/13/19 08:21; Admin Dose 220 MG; Start 01/08/19 at 09:00 Diagnostic Test (Pha) (Accu-Chek) 1 ea 02 XX Last administered on 01/08/19at 02:40; Admin Dose 1 EA; Start 01/08/19 at 02:00 Insulin Aspart (Novolog Insulin Pen) NOVOLOG *MODERATE* ALGORITHM WITH MEALS BEDTIME SC Last administered on 01/13/19at 12:23; Admin Dose 4 UNIT; Start 01/08/19 at 08:00 Miscellaneous Information 1 ea NOTE XX ; Start 01/07/19 at 23:00 Glucose (Glutose) 15 gm Q15M PRN PO DECREASED GLUCOSE; Start 01/07/19 at 23:00 Glucose (Glutose) 22.5 gm Q15M PRN PO DECREASED GLUCOSE; Start 01/07/19 at 23:00 Dextrose (D50w Syringe) 25 ml Q15M PRN IV DECREASED GLUCOSE; Start 01/07/19 at 23:00 Dextrose (D50w Syringe) 50 ml Q15M PRN IV DECREASED GLUCOSE; Start 01/07/19 at 23:00 Glucagon (Glucagen) 1 mg Q15M PRN IM DECREASED GLUCOSE; Start 01/07/19 at 23:00 Glucose (Glutose) 15 gm Q15M PRN BUCCAL DECREASED GLUCOSE; Start 01/07/19 at 23:00 Miscellaneous Information (Pending Santyl Order For Wound Care) This patient rodríguez... PRN PRN XX WOUND CARE; Start 01/08/19 at 01:00 Collagenase (Santyl) 1 applic DAILY TOP Last administered on 01/11/19 10:53; Admin Dose 1 APPLIC; Start 01/08/19 at 13:30 Sodium Hypochlorite (Dakins Diluted (1/40)) 1 applic DAILY TP Last administered on 01/11/19 11:01; Admin Dose 1 APPLIC; Start 01/09/19 at 09:00 Collagenase (Santyl) 1 applic DAILY TOP Last administered on 01/11/19 10:53; Admin Dose 1 APPLIC; Start 01/09/19 at 09:00 Metronidazole 100 ml @ 100 mls/hr Q8 IVPB Last administered on 01/13/19 13:52; Admin Dose 100 MLS/HR; Start 01/09/19 at 14:00 Sodium Hypochlorite (Dakins Diluted (/40)) 1 applic DAILY TP Last administered on 01/11/19 11:01; Admin Dose 1 APPLIC; Start 01/09/19 at 18:30 Gentamicin Sulfate (Gentamicin 0.1% Cr) 1 applic TID TOP Last administered on 01/13/19 13:54; Admin Dose 1 APPLIC; Start 01/09/19 at 21:00 Vancomycin HCl (Vancomycin Oral Syringe) 250 mg Q6 PO Last administered on 01/13/19 12:21; Admin Dose 250 MG; Start 01/10/19 at 00:00 Insulin Aspart (Novolog Insulin Pen) 6 unit WITH MEALS SC Last administered on 01/13/19 12:22; Admin Dose 6 UNIT; Start 01/10/19 at 11:30 Insulin Glargine (Lantus) 19 units QHS SC Last administered on 01/12/19 20:29; Admin Dose 19 UNITS; Start 01/10/19 at 21:00 Gentamicin Sulfate (Gentamicin Iv Per Pharmacy) GENTAMICIN PER PHARMACY ... NOTE XX ; Start 01/10/19 at 16:30 Gentamicin Sulfate 290 mg/ Sodium Chloride 107.25 ml @ 107.25 mls/hr Q48H IVPB Last administered on 01/12/19at 23:22; Admin Dose 107.25 MLS/HR; Start 01/12/19 at 23:00 Polyethylene Glycol (Miralax) 17 gm DAILY PRN PO CONSTIPATION; Start 01/11/19 at 16:30 Lactobacillus Acidophilus/ Rhamnosus (Culturelle) 1 cap WITH MEALS PO Last administered on 01/13/19at 12:21; Admin Dose 1 CAP; Start 01/12/19 at 17:35 Lisinopril (Zestril) 20 mg BID PO Last administered on 01/13/19at 09:36; Admin Dose 20 MG; Start 01/13/19 at 09:00 SANCHEZ ANDERSON MD Jan 13, 2019 15:24
[2019-01-13 19:30] VITALS: BP 135/88; PULSE 78; RESP 17
[2019-01-13] MEDS: MONTELUKAST 10 MG TAB PO SCH (20:16)
[2019-01-13] MEDS: ATORVASTATIN 40 MG TAB PO SCH (20:17)
[2019-01-13] MEDS: INSULIN GLARGINE [LANTus] (100 UNITS/ML) SYG SC SCH (20:32)
[2019-01-14] MEDS: VANCOMYCIN HCL 250 MG/5ML POSYG PO SCH ×4 (00:16→17:39)
[2019-01-14] MEDS: ACCU-CHEK XX SCH (01:10)
[2019-01-14 02:04] VITALS: BP 163/78; PULSE 81; RESP 18
[2019-01-14] MEDS: metroNIDAZOLE 500 MG/NS (PMX) 100 ML IVPB SCH ×2 (05:21→14:04)
[2019-01-14 08:00] VITALS: BP 129/95; PULSE 74; RESP 18
[2019-01-14] MEDS: INSULIN ASPART [NOVOLOG] 3 ML PEN SC SCH ×7 (08:19→21:00)
[2019-01-14] MEDS: ASPIRIN 81 MG TAB PO SCH (08:20)
[2019-01-14] MEDS: HEPARIN 5,000 UNIT/1 ML VIAL SC SCH ×2 (08:20→21:01)
[2019-01-14] MEDS: ZINC SULFATE 220 MG CAP PO SCH (08:21)
[2019-01-14] MEDS: LACTOBACILLUS RHAMNOSUS CAP PO SCH ×3 (08:21→17:39)
[2019-01-14] MEDS: ASCORBIC ACID 500 MG TAB PO SCH (08:21)
[2019-01-14] MEDS: SUCRALFATE 1 GM TAB PO SCH ×4 (08:24→21:00)
[2019-01-14] MEDS: CLOPIDOGREL 75 MG TAB PO SCH (08:25)
[2019-01-14] MEDS: AMLODIPINE 10 MG TAB PO SCH (08:26)
[2019-01-14] MEDS: FAMOTIDINE 20 MG TAB PO SCH (08:26)
[2019-01-14] MEDS: BUPROPION (SR) 150 MG TAB PO SCH ×2 (08:26→21:00)
[2019-01-14] MEDS: LISINOPRIL 20 MG TAB PO SCH ×2 (08:26→21:00)
[2019-01-14] MEDS: GENTAMICIN 0.1% CREAM 15GM TUBE TOP SCH ×3 (08:27→21:00)
[2019-01-14] MEDS: COLLAGENASE 5 GM (UD JAR) TOP SCH ×2 (08:27)
[2019-01-14] MEDS: DAKINS 0.0125%(1/40) 473 ML SOLUTION TP SCH ×2 (08:27)
--- NOTE | 2019-01-14 09:22 | PN ---
DATE: 01/14/2019 SUBJECTIVE: The patient is stable, no events overnight. No fevers, chills, nausea, or vomiting. OBJECTIVE: VITAL SIGNS: Blood pressure is 163/78, respirations 18, pulse 81, temperature 98.8. HEENT: Head is normocephalic. NECK: Supple. HEART: Regular rate. LUNGS: Show diminished breath sounds at the base. ABDOMEN: Soft, nontender to palpation. No rebound or guarding. EXTREMITIES: Negative for clubbing, cyanosis, no edema. DERMATOLOGIC: No rashes. MUSCULOSKELETAL: No joint effusion. NEUROLOGIC: No change in exam. MEDICATIONS: Reviewed. LABORATORY DATA: Reviewed. ASSESSMENT AND PLAN: 1. Nonoliguric acute kidney injury on top of chronic kidney disease with previous baseline creatinin e of around 1.5 mg/dL. Etiology of acute kidney injury is secondary to hemodynamics. Renal function is currently at baseline. Continue current treatment plan, supportive care, renally dose all medici kit. 2. Chronic kidney disease due to diabetic nephropathy, nephrotic range proteinuria. Continue curren t medical management. Continue disease factor modification. Continue ASHLEY inhibitor. 3. Anemia. Monitor hemoglobin and hematocrit levels. 4. Mineral bone disorder, monitor calcium and phosphorus levels. 5. Metabolic acidosis secondary to acute kidney injury, improved. 6. Clostridium difficile. Continue oral vancomycin. 7. Left foot osteomyelitis. Continue current antibiotic therapy. 8. Hypertension. Continue current blood pressure regimen. 9. Dyslipidemia. Continue statin therapy. 10. Diabetes. Continue current insulin regimen. Dictated By: RAYSHAWN FULLER DO NR/NTS Conf#: [id number] DID#: [id number] CC: YUNIEL ESCOBAR MD; SANCHEZ ANDERSON MD;*EndCC*
--- NOTE | 2019-01-14 11:19 | PN ---
Date/Time of Note Date/Time of Note DATE: 01/14/19 TIME: 11:15 Assessment/Plan VTE Prophylaxis Risk score (from Ns)>0 risk: 4 SCD applied (from Ns): No SCD contraindicated: patient refusal Pharmacological prophylaxis: heparin Lines/Catheters IV Catheter Type (from Nrsg): PICC Line Central line still needed: Yes Urinary Cath still in place: No Assessment/Plan Assessment/Plan 1. Chronic left foot wound with osteomyelitis - Podiatry on board and appreciate recommendations. Recommending topical gentamicin. Will touch base for discharge planning - ID on board and appreciate recommendations for antibiotics 2. C. difficile colitis - Flagyl and PO vanco - Lactobacillus 3. DM - Insulin on board. will adjust as needed - ISS and accuchecks 4. RICO on CKD- stabilizing - Nephrology on board and appreciate recommendations. - renally dose all medications 5. Anemia - Monitor, transfuse as needed 6. CAD - continue on Plavix and home medications 7. Chronic depression - Continue home meds 8. Disposition - Continue current treatment - Will touch base with Podiatry and ID on plan of care for discharge planning. Result Diagram: 01/13/19 0606 01/14/19 0541 Results 24hrs Laboratory Tests Test 01/13/19 12:19 01/13/19 17:28 01/13/19 20:28 01/14/19 05:41 Bedside Glucose 201 194 123 Sodium Level 139 Potassium Level 4.5 Chloride Level 107 Carbon Dioxide Level 26 Anion Gap 6 Blood Urea Nitrogen 45 #H Creatinine 1.64 H Est Glomerular 33 L Filtrat Rate mL/min Glucose Level 145 Calcium Level 8.9 Phosphorus Level 4.4 Magnesium Level 1.8 Test 01/14/19 08:15 Bedside Glucose 150 Subjective 24 Hr Interval Summary Free Text/Dictation Patient is doing well and denies any acute issues. Asking when she can go home. No acute overnight events or further nausea or vomiting. Exam/Review of Systems Exam Vitals Vital Signs Date Temp Pulse Resp B/P (MAP) Pulse Ox O2 O2 Flow FiO2 Time Delivery Rate 01/14/19 98.6 74 18 129/95 96 08:00 (106) 01/13/19 Room Air 15:18 Intake and Output 01/13/19 01/13/19 01/14/19 1515:00 23:00 07:00 IntakeIntake Total 700 ml 400 ml 570 ml OutputOutput Total 350 ml 435 ml BalanceBalance 350 ml 400 ml 135 ml Exam General: Patient is laying in bed and answers questions appropriately. no acute distress Neck: Supple, nontender, midline Respiratory: Clear to auscultation bilaterally. no wheezing Cardiovascular: regular rate and rhythm, no obvious murmurs Gastrointestinal: soft, non-tender to palpation, nondistended, bowel sounds heard. Skin: Left foot wound, bandaged. no discharge or drainage Results Results 24hrs Laboratory Tests Test 01/13/19 12:19 01/13/19 17:28 01/13/19 20:28 01/14/19 05:41 Bedside Glucose 201 194 123 Sodium Level 139 Potassium Level 4.5 Chloride Level 107 Carbon Dioxide Level 26 Anion Gap 6 Blood Urea Nitrogen 45 #H Creatinine 1.64 H Est Glomerular 33 L Filtrat Rate mL/min Glucose Level 145 Calcium Level 8.9 Phosphorus Level 4.4 Magnesium Level 1.8 Test 01/14/19 08:15 Bedside Glucose 150 Medications Medication Current Medications IV Flush (NS 3 ml) 3 ml PER PROTOCOL IV ; Start 01/07/19 at 22:30 Ondansetron HCl (Zofran Inj) 4 mg Q6H PRN IV NAUSEA/VOMITING Last administered on 01/12/19at 13:11; Admin Dose 4 MG; Start 01/07/19 at 22:30 Acetaminophen (Tylenol Tab) 650 mg Q6H PRN PO .PAIN 1-3 OR TEMP; Start 01/07/19 at 22:30 Acetaminophen/ Hydrocodone Bitart ([place] (5/325)) 1 tab Q6H PRN PO .MOD PAIN 4- 6 Last administered on 01/12/19at 04:54; Admin Dose 1 TAB; Start 01/07/19 at 22:30 Acetaminophen/ Hydrocodone Bitart ([place] (5/325)) 2 tab Q6H PRN PO .SEVERE PAIN 7-10 Last administered on 01/10/19at 01:26; Admin Dose 2 TAB; Start 01/07/19 at 22:30 Heparin Sodium (Porcine) (Heparin (5000 Units/1ml)) 5,000 unit Q12 SC Last administered on 01/14/19at 08:20; Admin Dose 5,000 UNIT; Start 01/08/19 at 09:00 Amlodipine Besylate (Norvasc) 10 mg DAILY PO Last administered on 01/14/19 08:26; Admin Dose 10 MG; Start 01/08/19 at 09:00 Ascorbic Acid (Vitamin C) 500 mg DAILY PO Last administered on 01/14/19 08:21; Admin Dose 500 MG; Start 01/08/19 at 09:00 Aspirin (Aspirin) 81 mg DAILY PO Last administered on 01/14/19 08:20; Admin Dose 81 MG; Start 01/08/19 at 09:00 Atorvastatin Calcium (Lipitor) 40 mg HS PO Last administered on 01/13/19 20:17; Admin Dose 40 MG; Start 01/08/19 at 21:00 Bupropion HCl (Wellbutrin Sr) 150 mg BID PO Last administered on 01/14/19 08:26; Admin Dose 150 MG; Start 01/07/19 at 22:30 Carvedilol (Coreg) 12.5 mg BID PO Last administered on 01/14/19 08:25; Admin D ose 12.5 MG; Start 01/08/19 at 09:00 Clopidogrel Bisulfate (plaVIX) 75 mg DAILY PO Last administered on 01/14/19 08:25; Admin Dose 75 MG; Start 01/08/19 at 09:00 Famotidine (Pepcid) 20 mg DAILY PO Last administered on 01/14/19 08:26; Admin Dose 20 MG; Start 01/08/19 at 09:00 Hydralazine HCl (Apresoline) 75 mg TID PO Last administered on 01/14/19 08:25; Admin Dose 75 MG; Start 01/08/19 at 09:00 Montelukast Sodium (Singulair) 10 mg HS PO Last administered on 01/13/19 20:16; Admin Dose 10 MG; Start 01/08/19 at 21:00 Ondansetron HCl (Zofran Tab) 4 mg Q6H PRN PO NAUSEA AND/OR VOMITING; Start 01/07/19 at 22:30 Sucralfate (Carafate) 1 gm AC MEALS AND BEDTIME PO Last administered on 08:24; Admin Dose 1 GM; Start 01/08/19 at 07:00 Zinc Sulfate (Zinc Sulfate) 220 mg DAILY PO Last administered on 01/14/19 08:21; Admin Dose 220 MG; Start 01/08/19 at 09:00 Diagnostic Test (Pha) (Accu-Chek) 1 ea 02 XX Last administered on 01/08/19at 02:40; Admin Dose 1 EA; Start 01/08/19 at 02:00 Insulin Aspart (Novolog Insulin Pen) NOVOLOG *MODERATE* ALGORITHM WITH MEALS BEDTIME SC Last administered on 01/14/19at 08:19; Admin Dose 2 UNIT; Start 01/08/19 at 08:00 Miscellaneous Information 1 ea NOTE XX ; Start 01/07/19 at 23:00 Glucose (Glutose) 15 gm Q15M PRN PO DECREASED GLUCOSE; Start 01/07/19 at 23:00 Glucose (Glutose) 22.5 gm Q15M PRN PO DECREASED GLUCOSE; Start 01/07/19 at 23:0 0 Dextrose (D50w Syringe) 25 ml Q15M PRN IV DECREASED GLUCOSE; Start 01/07/19 at 23:00 Dextrose (D50w Syringe) 50 ml Q15M PRN IV DECREASED GLUCOSE; Start 01/07/19 at 23:00 Glucagon (Glucagen) 1 mg Q15M PRN IM DECREASED GLUCOSE; Start 01/07/19 at 23:00 Glucose (Glutose) 15 gm Q15M PRN BUCCAL DECREASED GLUCOSE; Start 01/07/19 at 23:00 Miscellaneous Information (Pending Santyl Order For Wound Care) This patient rodríguez... PRN PRN XX WOUND CARE; Start 01/08/19 at 01:00 Collagenase (Santyl) 1 applic DAILY TOP Last administered on 01/14/19at 08:27; Admin Dose 1 APPLIC; Start 01/08/19 at 13:30 Sodium Hypochlorite (Dakins Diluted (1/40)) 1 applic DAILY TP Last administered on 01/14/19at 08:27; Admin Dose 1 APPLIC; Start 01/09/19 at 09:00 Collagenase (Santyl) 1 applic DAILY TOP Last administered on 01/14/19at 08:27; Admin Dose 1 APPLIC; Start 01/09/19 at 09:00 Metronidazole 100 ml @ 100 mls/hr Q8 IVPB Last administered on 01/14/19at 05:21; Admin Dose 100 MLS/HR; Start 01/09/19 at 14:00 Sodium Hypochlorite (Dakins Diluted (1/40)) 1 applic DAILY TP Last administered on 01/14/19 08:27; Admin Dose 1 APPLIC; Start 01/09/19 at 18:30 Gentamicin Sulfate (Gentamicin 0.1% Cr) 1 applic TID TOP Last administered on 01/14/19 08:27; Admin Dose 1 APPLIC; Start 01/09/19 at 21:00 Vancomycin HCl (Vancomycin Oral Syringe) 250 mg Q6 PO Last administered on 01/14/19 05:21; Admin Dose 250 MG; Start 01/10/19 at 00:00 Insulin Aspart (Novolog Insulin Pen) 6 unit WITH MEALS SC Last administered on 01/14/19 08:19; Admin Dose 6 UNIT; Start 01/10/19 at 11:30 Insulin Glargine (Lantus) 19 units QHS SC Last administered on 01/13/19at 20:32; Admin Dose 19 UNITS; Start 01/10/19 at 21:00 Polyethylene Glycol (Miralax) 17 gm DAILY PRN PO CONSTIPATION; Start 01/11/19 at 16:30 Lactobacillus Acidophilus/ Rhamnosus (Culturelle) 1 cap WITH MEALS PO Last administered on 01/14/19 08:21; Admin Dose 1 CAP; Start 01/12/19 at 17:35 Lisinopril (Zestril) 20 mg BID PO Last administered on 01/14/19 08:26; Admin Dose 20 MG; Start 01/13/19 at 09:00 SANCHEZ ANDERSON MD Jan 14, 2019 11:19
[2019-01-14] MEDS ORDERED: NOVO3I SC (11:35)
[2019-01-14] MEDS ORDERED: GENT30CR TOP (11:35)
[2019-01-14] MEDS ORDERED: LANT3I SC (11:35)
[2019-01-14] MEDS ORDERED: LACT1CAP28 PO (11:35)
[2019-01-14] MEDS ORDERED: VANC125C4 PO (11:35)
[2019-01-14] MEDS ORDERED: LISI-471 PO (11:35)
[2019-01-14] MEDS ORDERED: LANC-831 MC (11:37)
[2019-01-14] MEDS ORDERED: NEED-135 MC (11:37)
--- NOTE | 2019-01-14 11:43 | PDOCDIS ---
Discharge Instructions DIAGNOSIS Discharge Diagnosis 1. Chronic left foot wound with osteomyelitis 2. C. difficile colitis 3. DM 4. [place] on CKD- resolved 5. Anemia 6. CAD 7. Chronic depression CONDITION [id number] Patient Condition: [id number] Stable HOME CARE INSTRUCTIONS: [id number] Diet Instructions: [id number] Low Fat /Cholesterol [id number] Special Diet: [id number] low carb, low sugar diet FOLLOW UP/APPOINTMENTS Follow-up Plan 1. Continue on Vancomycin four times a day for 10 days to treat your infectious diarrhea 2. Continue with Topical Gentamycin three times a day for at least 6 weeks 3. Follow up with [facility] for monitoring of your foot wound in 1 week 4. Your insulin dosages were adjusted. Take Lantus 19 units and novolog 6 units with meals 5. Follow up with your primary care physician in 1-2 weeks 6. Continue with daily dressings and keep wound clean and dry 7. If any concerning symptoms, please go to your nearest emergency department 1. Contine en vancomicina cuatro veces al da shantelle 10 lamar para tratar velez diarrea infecciosa 2. Contine con gentamicina tpica abdelrahman veces al da shantelle al menos 6 semanas 3. seguimiento con la clnica [facility] para el seguimiento de velez herida de pie en 1 semana 4. se ajustaron todd dosis de insulina. [place] Lantus 19 unidades y NovoLog 6 unidades con las comidas 5. seguimiento con velze mdico de atencin primaria en 1-2 semanas 6. Contine con los apsitos diarios y mantenga la herida limpia y seca 7. Si tiene alguna relacin con los sntomas, dirjase al Departamento de emergencias SANCHEZ Ocasio MD Jan 14, 2019 11:43
--- NOTE | 2019-01-14 12:01 | CONS ---
Assessment/Plan Assessment/Plan Hospital Course (Demo Recall) No acute events, looks comfortable Microbiology: Left foot wound culture growing Pseudomonas. Stool for C. difficile was positive. Antimicrobials: Gentamicin topical, oral vancomycin, Flagyl Physical examination: Well-nourished well-developed middle-aged woman who is awake in no distress. Head atraumatic normocephalic neck is supple chest rise symmetrical breath sounds diminished bases. Heart: S1-S2. Abdomen soft bowel sounds present. Assessment: 1. Systemic inflammatory response syndrome on admission 2. Left diabetic foot ulceration/osteomyelitis 3. Charge code neuro arthropathy 4. Diabetes 5. Peripheral arterial disease 6. Acute kidney injury Plan: Remains stable, ok dc on current abx Consultation Date/Type/Reason Admit Date/Time Jan 07, 2019 at 21:39 Initial Consult Date Type of Consult id Date/Time of Note DATE: 01/14/19 TIME: 11:59 Exam/Review of Systems Exam Vitals Vital Signs Date Temp Pulse Resp B/P (MAP) Pulse Ox O2 O2 Flow FiO2 Time Delivery Rate 01/14/19 98.6 74 18 129/95 96 08:00 (106) 01/13/19 Room Air 15:18 Intake and Output 01/13/19 01/13/19 01/14/19 1414:59 22:59 06:59 IntakeIntake Total 700 ml 400 ml 570 ml OutputOutput Total 350 ml 435 ml BalanceBalance 350 ml 400 ml 135 ml Results Result Diagram: 01/13/19 0606 01/14/19 0541 Results 24hrs Laboratory Tests Test 01/13/19 12:19 01/13/19 17:28 01/13/19 20:28 01/14/19 05:41 Bedside Glucose 201 194 123 Sodium Level 139 Potassium Level 4.5 Chloride Level 107 Carbon Dioxide Level 26 Anion Gap 6 Blood Urea Nitrogen 45 #H Creatinine 1.64 H Est Glomerular 33 L Filtrat Rate mL/min Glucose Level 145 Calcium Level 8.9 Phosphorus Level 4.4 Magnesium Level 1.8 Test 01/14/19 08:15 Bedside Glucose 150 Medications Medication Current Medications IV Flush (NS 3 ml) 3 ml PER PROTOCOL IV ; Start 01/07/19 at 22:30 Ondansetron HCl (Zofran Inj) 4 mg Q6H PRN IV NAUSEA/VOMITING Last administered on 01/12/19at 13:11; Admin Dose 4 MG; Start 01/07/19 at 22:30 Acetaminophen (Tylenol Tab) 650 mg Q6H PRN PO .PAIN 1-3 OR TEMP; Start 01/07/19 at 22:30 Acetaminophen/ Hydrocodone Bitart ([place] (5/325)) 1 tab Q6H PRN PO .MOD PAIN 4- 6 Last administered on 01/12/19 04:54; Admin Dose 1 TAB; Start 01/07/19 at 22:30 Acetaminophen/ Hydrocodone Bitart ([place] (5/325)) 2 tab Q6H PRN PO .SEVERE PAIN 7-10 Last administered on 01/10/19 01:26; Admin Dose 2 TAB; Start 01/07/19 at 22:30 Heparin Sodium (Porcine) (Heparin (5000 Units/1ml)) 5,000 unit Q12 SC Last administered on 01/14/19 08:20; Admin Dose 5,000 UNIT; Start 01/08/19 at 09:00 Amlodipine Besylate (Norvasc) 10 mg DAILY PO Last administered on 01/14/19 08:26; Admin Dose 10 MG; Start 01/08/19 at 09:00 Ascorbic Acid (Vitamin C) 500 mg DAILY PO Last administered on 01/14/19 08:21; Admin Dose 500 MG; Start 01/08/19 at 09:00 Aspirin (Aspirin) 81 mg DAILY PO Last administered on 01/14/19 08:20; Admin Dose 81 MG; Start 01/08/19 at 09:00 Atorvastatin Calcium (Lipitor) 40 mg HS PO Last administered on 01/13/19 20:1 7; Admin Dose 40 MG; Start 01/08/19 at 21:00 Bupropion HCl (Wellbutrin Sr) 150 mg BID PO Last administered on 01/14/19 08:26; Admin Dose 150 MG; Start 01/07/19 at 22:30 Carvedilol (Coreg) 12.5 mg BID PO Last administered on 01/14/19 08:25; Admin Dose 12.5 MG; Start 01/08/19 at 09:00 Clopidogrel Bisulfate (plaVIX) 75 mg DAILY PO Last administered on 01/14/19 08:25; Admin Dose 75 MG; Start 01/08/19 at 09:00 Famotidine (Pepcid) 20 mg DAILY PO Last administered on 01/14/19 08:26; Admin Dose 20 MG; Start 01/08/19 at 09:00 Hydralazine HCl (Apresoline) 75 mg TID PO Last administered on 01/14/19at 08:25; Admin Dose 75 MG; Start 01/08/19 at 09:00 Montelukast Sodium (Singulair) 10 mg HS PO Last administered on 01/13/19at 20:16; Admin Dose 10 MG; Start 01/08/19 at 21:00 Ondansetron HCl (Zofran Tab) 4 mg Q6H PRN PO NAUSEA AND/OR VOMITING; Start 01/07/19 at 22:30 Sucralfate (Carafate) 1 gm AC MEALS AND BEDTIME PO Last administered on 01/14/19at 08:24; Admin Dose 1 GM; Start 01/08/19 at 07:00 Zinc Sulfate (Zinc Sulfate) 220 mg DAILY PO Last administered on 01/14/19at 08:21; Admin Dose 220 MG; Start 01/08/19 at 09:00 Diagnostic Test (Pha) (Accu-Chek) 1 ea 02 XX Last administered on 01/08/19at 02:40; Admin Dose 1 EA; Start 01/08/19 at 02:00 Insulin Aspart (Novolog Insulin Pen) NOVOLOG *MODERATE* ALGORITHM WITH MEALS BEDTIME SC Last administered on 01/14/19at 08:19; Admin Dose 2 UNIT; Start 01/08/19 at 08:00 Miscellaneous Information 1 ea NOTE XX ; Start 01/07/19 at 23:00 Glucose (Glutose) 15 gm Q15M PRN PO DECREASED GLUCOSE; Start 01/07/19 at 23:00 Glucose (Glutose) 22.5 gm Q15M PRN PO DECREASED GLUCOSE; Start 01/07/19 at 23:00 Dextrose (D50w Syringe) 25 ml Q15M PRN IV DECREASED GLUCOSE; Start 01/07/19 at 23:00 Dextrose (D50w Syringe) 50 ml Q15M PRN IV DECREASED GLUCOSE; Start 01/07/19 at 23:00 Glucagon (Glucagen) 1 mg Q15M PRN IM DECREASED GLUCOSE; Start 01/07/19 at 23:00 Glucose (Glutose) 15 gm Q15M PRN BUCCAL DECREASED GLUCOSE; Start 01/07/19 at 23:00 Miscellaneous Information (Pending Santyl Order For Wound Care) This patient rodríguez... PRN PRN XX WOUND CARE; Start 01/08/19 at 01:00 Collagenase (Santyl) 1 applic DAILY TOP Last administered on 01/14/19 08:27; Admin Dose 1 APPLIC; Start 01/08/19 at 13:30 Sodium Hypochlorite (Dakins Diluted (1/40)) 1 applic DAILY TP Last administered on 01/14/19 08:27; Admin Dose 1 APPLIC; Start 01/09/19 at 09:00 Collagenase (Santyl) 1 applic DAILY TOP Last administered on 01/14/19 08:27; Admin Dose 1 APPLIC; Start 01/09/19 at 09:00 Metronidazole 100 ml @ 100 mls/hr Q8 IVPB Last administered on 01/14/19 05:21; Admin Dose 100 MLS/HR; Start 01/09/19 at 14:00 Sodium Hypochlorite (Dakins Diluted (1/40)) 1 applic DAILY TP Last administered on 01/14/19 08:27; Admin Dose 1 APPLIC; Start 01/09/19 at 18:30 Gentamicin Sulfate (Gentamicin 0.1% Cr) 1 applic TID TOP Last administered on 01/14/19 08:27; Admin Dose 1 APPLIC; Start 01/09/19 at 21:00 Vancomycin HCl (Vancomycin Oral Syringe) 250 mg Q6 PO Last administered on 01/14/19 05:21; Admin Dose 250 MG; Start 01/10/19 at 00:00 Insulin Aspart (Novolog Insulin Pen) 6 unit WITH MEALS SC Last administered on 01/14/19 08:19; Admin Dose 6 UNIT; Start 01/10/19 at 11:30 Insulin Glargine (Lantus) 19 units QHS SC Last administered on 01/13/19 20:32; Admin Dose 19 UNITS; Start 01/10/19 at 21:00 Polyethylene Glycol (Miralax) 17 gm DAILY PRN PO CONSTIPATION; Start 01/11/19 at 16:30 Lactobacillus Acidophilus/ Rhamnosus (Culturelle) 1 cap WITH MEALS PO Last a dministered on 01/14/19 08:21; Admin Dose 1 CAP; Start 01/12/19 at 17:35 Lisinopril (Zestril) 20 mg BID PO Last administered on 01/14/19at 08:26; Admin Dose 20 MG; Start 01/13/19 at 09:00 KAYODE WESLEY NP Jan 14, 2019 12:01
[2019-01-14] MEDS ORDERED: METR-122 PO (12:13)
[2019-01-14] MEDS ORDERED: INSU100I33 SC (12:13)
--- NOTE | 2019-01-14 12:14 | PDOCDIS ---
Discharge Instructions DIAGNOSIS Discharge Diagnosis 1. Chronic left foot wound with osteomyelitis 2. C. difficile colitis 3. DM 4. [place] on CKD- resolved 5. Anemia 6. CAD 7. Chronic depression CONDITION [id number] Patient Condition: [id number] Stable HOME CARE INSTRUCTIONS: [id number] Diet Instructions: [id number] Low Fat /Cholesterol [id number] Special Diet: [id number] low carb, low sugar diet FOLLOW UP/APPOINTMENTS Follow-up Plan 1. Continue on Flagyl four times a day for 10 days to treat your infectious diarrhea 2. Continue with Topical Gentamycin three times a day for at least 6 weeks 3. Follow up with [facility] for monitoring of your foot wound in 1 week 4. Your insulin dosages were adjusted. Take Basaglar 19 units at night and novolog 6 units with meals 5. Follow up with your primary care physician in 1-2 weeks 6. Continue with daily dressings and keep wound clean and dry 7. If any concerning symptoms, please go to your nearest emergency department 1. Contine en Flagyl cuatro veces al da shantelle 10 lamar para tratar velez diarrea infecciosa 2. Contine con gentamicina tpica abdelrahman veces al da shantelle al menos 6 semanas 3. seguimiento con la clnica [facility] para el seguimiento de velez herida de pie en 1 semana 4. se ajustaron todd dosis de insulina. [place] Basaglar 19 unidades por la noche y NovoLog 6 unidades con las comidas 5. seguimiento con velez mdico de atencin primaria en 1-2 semanas 6. Contine con los apsitos diarios y mantenga la herida limpia y seca 7. Si tiene alguna relacin con los sntomas, dirjase al Departamento de emergencias SANCHEZ Ocasio MD Jan 14, 2019 12:14
[2019-01-14 14:00] VITALS: BP 143/75; PULSE 79; RESP 20
--- NOTE | 2019-01-14 15:25 | DS ---
Date/Time of Note Date/Time of Note DATE: 01/14/19 TIME: 15:22 Discharge Summary Admission/Discharge Info Admit Date/Time Jan 07, 2019 at 21:39 Discharge Date/Time 01/14/19 Discharge Diagnosis 1. Chronic left foot wound with osteomyelitis 2. C. difficile colitis 3. DM 4. RICO on CKD- resolved 5. Anemia 6. CAD 7. Chronic depression Patient Condition: Stable Consults Podiatry- Dr. Jeff Procedures Bedside I&D 01/11/19 Hx of Present Illness This is a 53-year-old female with a history of hypertension, diabetes, dyslipidemia, peripheral vascular disease, left foot osteomyelitis/chronic wound. Patient presented to ER complaining of diarrhea for about 5 days. Patient has a chronic left foot ulcer for which she has been getting IV antibiotics and debridements. She was last admitted here in October of this year. At that time she underwent debridement and was discharged home with IV antibiotic after placement of a PICC line. When presented to ER, according to nursing notes, dressing over the left foot was soiled with feces from the diarrhea. She said she was told not to change the dressings. ER notes report worsening drainage on the left foot, however patient denied saying that she came to the hospital only for diarrhea. Diarrhea is watery and nonbloody. In the ER, x-ray of the left foot shows more prominent erosive changes to the base of the fifth proximal phalanx and the distal fifth metatarsal compared to prior study, likely infectious and status post removal of one midfoot fixation screw. Hospital Course Patient was admitted for workup of diarrhea and found with Cdiff. Infections disease was consulted and started on antibiotics. Patient was also evaluated by Podiatry who performed bedside debridement and requested daily dressing changes and gentamicin ointment TID for treatment. Patients diarrhea improved significantly and she was no longer experiencing any nausea or vomiting. Adjustments were made to her insulin regime as well for better glucose control. Patient refused SNF placement and was arranged for wound care and diabetic teaching. Patient was cleared by Podiatry for discharge and ID recommended 10 days of Flagyl and continue on Gentamicin topical on wound. Patients presenting symptoms improved significantly and on day of discharge, vitals and physical exam were stable. Patient was discharged home with home health services in good condition. Home Meds Active Scripts Metronidazole* (Metronidazole*) 500 Mg Tablet, 500 MG PO Q6 for 10 Days, #40 TAB Prov:SANCHEZ ANDERSON MD 01/14/19 Insulin Glargine,Hum.rec.anlog (Basaglar Kwikpen U-100) 100 Unit/1 Ml Insuln.p en, 19 UNIT SC QHS for 30 Days, #6 EA 1 Refill Prov:SANCHEZ ANDERSON MD 01/14/19 [place], Insulin Disposable (Fidelia Pen Needle) 1 Each Dis.needle, EACH ACHS A, #120 Prov:SANCHEZ ANDERSON MD 01/14/19 Lancets (Blood Lancets) 1 Each Each, EACH ACHS A, #120 Prov:SANCHEZ ANDERSON MD 01/14/19 Lactobacillus Rhamnosus GG (Culturelle) 1 Each Capsule, 1 CAP PO WITH MEALS for 30 Days, #90 CAP Prov:SANCHEZ ANDERSON MD 01/14/19 Gentamicin Sulfate* (Gentamicin Sulfate* Cream) 0.1% - 30 Gm Cream.gm., 1 APPLIC TOP TID for 30 Days, #1 TUB 6 Refills Prov:SANCHEZ ANDERSON MD 01/14/19 Insulin Aspart* (Novolog Insulin Pen*) 100 Unit/Ml Soln, 6 UNIT SC WITH MEALS for 30 Days, #5 EA Prov:SANCHEZ ANDERSON MD 01/14/19 Lisinopril* (Lisinopril*) 20 Mg Tablet, 20 MG PO BID for 30 Days, #60 TAB Prov:SANCHEZ ANDERSON MD 01/14/19 Bupropion Hcl (Bupropion Hcl SR) 150 Mg Tablet.sa, 150 MG PO BID for 11 Days Prov:ERNESTINE KELLOGG MD 10/27/18 Carvedilol* (Carvedilol*) 12.5 Mg Tablet, 12.5 MG PO BID for 14 Days, TAB Prov:ERNESTINE KELLOGG MD 10/27/18 Montelukast Sodium* (Montelukast Sodium*) 10 Mg Tablet, 10 MG PO HS for 30 Days, #30 TAB 6 Refills Prov:ERNESTINE KELLOGG MD 10/27/18 Aspirin (Aspirin) 81 Mg Chew, 81 MG PO DAILY for 30 Days, #30 TAB 6 Refills Prov:SANCHEZ ANDERSON MD 08/26/18 Hydralazine Hcl* (Apresoline*) 50 Mg Tab, 75 MG PO TID for 30 Days, #90 TAB 6 Refills Prov:SANCHEZ ANDERSON MD 08/26/18 Atorvastatin* (Atorvastatin*) 40 Mg Tablet, 40 MG PO HS for 30 Days, #30 TAB 6 Refills Prov:SANCHEZ ANDERSON MD 08/26/18 Clopidogrel Bisulfate (Clopidogrel) 75 Mg Tablet, 75 MG PO DAILY for 30 Days, #30 TAB 6 Refills Prov:SANCHEZ ANDERSON MD 08/26/18 Reported Medications Ondansetron Hcl* (Zofran*) 4 Mg Tablet, 4 MG PO Q6H PRN for NAUSEA AND OR VOMITING, TAB 11/12/18 Polyethylene Glycol* (Miralax*) 17 Gm Powd.pack, 17 GM PO BID, #60 PACKET 11/12/18 Ascorbic Acid (Vitamin C) 500 Mg Tab, 500 MG PO DAILY, TAB 11/12/18 Zinc Sulfate* (Zinc Sulfate*) 220 Mg Cap, 220 MG PO DAILY, CAP 11/12/18 Famotidine* (Pepcid*) 20 Mg Tablet, 20 MG PO DAILY, #30 TAB 11/12/18 Amlodipine Besylate* (Amlodipine Besylate*) 10 Mg Tablet, 10 MG PO DAILY, #30 TAB 10/05/18 Discontinued Reported Medications Insulin Glargine* (Lantus*) 100 Unit/Ml Soln, 24 UNIT SC QHS, #1 VIAL 11/12/18 Sucralfate* (Carafate*) 1 Gm Tab, 1 GM PO AC MEALS AND BEDTIME, TAB 11/12/18 Multivitamin with Minerals (Multivitamins with Minerals) 1 Each Tablet, 1 EACH PO DAILY, TAB 11/12/18 Enoxaparin Sodium* (Lovenox*) 40 Mg/0.4 Ml Syringe, 40 MG SC DAILY, SYR 11/12/18 Amino Acids/Protein Hydrolys (PRO-STAT LIQUID) 30 Ml Liquid.pkt, 30 ML PO DAILY for SUGAR FREE 11/12/18 Discontinued Scripts Ondansetron (Ondansetron Odt) 4 Mg Tab.rapdis, 4 MG PO Q6H PRN for NAUSEA AND/OR VOMITING, #10 TAB Prov:ESTHER PERKINS MD 12/31/18 Voriconazole* (Vfend*) 200 Mg Tablet, 200 MG PO BID for 14 Days, TAB Prov:HERNANDEZ VILLA 11/23/18 Follow-up Plan 1. Continue on Flagyl four times a day for 10 days to treat your infectious diarrhea 2. Continue with Topical Gentamycin three times a day for at least 6 weeks 3. Follow up with [facility] for monitoring of your foot wound in 1 week 4. Your insulin dosages were adjusted. Take Basaglar 19 units at night and novolog 6 units with meals 5. Follow up with your primary care physician in 1-2 weeks 6. Continue with daily dressings and keep wound clean and dry 7. If any concerning symptoms, please go to your nearest emergency department 1. Contine en Flagyl cuatro veces al da shantelle 10 lamar para tratar velez diarrea infecciosa 2. Contine con gentamicina tpica abdelrahman veces al da shantelle al menos 6 semanas 3. seguimiento con la clnica [facility] para el seguimiento de velez herida de pie en 1 semana 4. se ajustaron todd dosis de insulina. [place] Basaglar 19 unidades por la noche y NovoLog 6 unidades con las comidas 5. seguimiento con velez mdico de atencin primaria en 1-2 semanas 6. Contine con los apsitos diarios y mantenga la herida limpia y seca 7. Si tiene alguna relacin con los sntomas, dirjase al Departamento de emergencias ms carranza Primary Care Provider [facility] Time spent on discharge: > 30 minutes Pending Labs Laboratory Tests Test 01/13/19 17:28 01/13/19 20:28 01/14/19 05:41 01/14/19 08:15 Bedside 194 123 150 Glucose mg/dL (70-220) mg/dL (70-220) mg/dL (70-220) Sodium Level 139 mmol/L (135-14 4) Potassium 4.5 Level mmol/L (3.5-5. 1) Chloride Level 107 mmol/L (97-110 ) Carbon Dioxide 26 Level mmol/L (21-31) Anion Gap 6 (5-13) Blood Urea 45 Nitrogen mg/dl (7-20) Creatinine 1.64 mg/dl (0.44-1. 00) Est Glomerular 33 Filtrat mL/min (>60) Rate mL/min Glucose Level 145 mg/dl (70-220) Calcium Level 8.9 mg/dl (8.4-10. 2) Phosphorus 4.4 Level mg/dl (2.5-4.9 ) Magnesium 1.8 Level mg/dl (1.7-2.5 ) Test 01/14/19 12:19 Bedside 179 Glucose mg/dL (70-220) SANCHEZ ANDERSON MD Jan 14, 2019 15:25
[2019-01-14] MEDS ORDERED: [UNRECOGNIZED DRUG - CODE] MC (17:43)
[2019-01-14] MEDS: MONTELUKAST 10 MG TAB PO SCH (21:00)
[2019-01-14] MEDS: ATORVASTATIN 40 MG TAB PO SCH (21:00)
[2019-01-14] MEDS: INSULIN GLARGINE [LANTus] (100 UNITS/ML) SYG SC SCH (21:01)
[2019-01-14 21:21] VITALS: BP 158/77
== END 2019-01-14 21:18 | disposition home health service (06) | DRG 628 ==
LOC: E/R 19:01 → PP2 21:39
PROVIDERS: ADMIT Internal Medicine; ATTEND Internal Medicine
PROC: 0QBP0ZZ Excision of Left Metatarsal, Open Approach (ICD-10-PCS; principal; 2019-01-11)
DX: E11.621 Type 2 diabetes mellitus with foot ulcer (principal); E43 Unspecified severe protein-calorie malnutrition; M86.672 Other chronic osteomyelitis, left ankle and foot; E87.1 Hypo-osmolality and hyponatremia; A04.72 Enterocolitis due to Clostridium difficile, not specified as recurrent; E87.2 Acidosis; I13.0 Hypertensive heart and chronic kidney disease with heart failure and stage 1 through stage 4 chronic kidney disease, or unspecified chronic kidney disease; E11.69 Type 2 diabetes mellitus with other specified complication; E11.65 Type 2 diabetes mellitus with hyperglycemia; N17.9 Acute kidney failure, unspecified; E11.22 Type 2 diabetes mellitus with diabetic chronic kidney disease; N18.9 Chronic kidney disease, unspecified; E11.42 Type 2 diabetes mellitus with diabetic polyneuropathy; Z68.21 Body mass index [BMI] 21.0-21.9, adult; E78.5 Hyperlipidemia, unspecified; E11.51 Type 2 diabetes mellitus with diabetic peripheral angiopathy without gangrene; I25.10 Atherosclerotic heart disease of native coronary artery without angina pectoris; Z79.02 Long term (current) use of antithrombotics/antiplatelets; F32.9 Major depressive disorder, single episode, unspecified; D50.9 Iron deficiency anemia, unspecified; E11.610 Type 2 diabetes mellitus with diabetic neuropathic arthropathy; L97.529 Non-pressure chronic ulcer of other part of left foot with unspecified severity; E11.21 Type 2 diabetes mellitus with diabetic nephropathy; E83.9 Disorder of mineral metabolism, unspecified; J44.9 Chronic obstructive pulmonary disease, unspecified; I50.9 Heart failure, unspecified; G90.4 Autonomic dysreflexia; E11.43 Type 2 diabetes mellitus with diabetic autonomic (poly)neuropathy; K31.84 Gastroparesis; Z86.718 Personal history of other venous thrombosis and embolism
CPT/HCPCS: 36415; 80048; 80053; 80170; 80202; 81001; 81003; 82043; 82962; 83540; 83605; 83735; 84100; 84155; 84300; 85025; 85610; 85651; 85730; 86140; 87045; 87070; 87075; 93005; 96361; 96365; 96372; J0360; J1580; J1644; J1815; J2405; J2543; J3370; J7030

== ENCOUNTER 2019-02-16 09:18 | Inpatient (IN) | payer OTHER ==
[~2019-02-16] VITALS: Ht 170.2 cm; Wt 59.2 kg
[~2019-02-16 09:18] MED LIST changes: -AMIN30LI PO; -ENOX40DI14 SC; +GENT30CR TOP; +INSU100I33 SC; +LACT1CAP28 PO; +LANC-831 MC; -LANT3I SC; +METR-122 PO; -MULT-105 PO; +NEED-135 MC; -ONDA4TAB14 PO; -SUCR1TAB56 PO; -VORI200T12 PO; +[UNRECOGNIZED DRUG - CODE] MC
[2019-02-16] MEDS ORDERED: SOD CHLORIDE 0.9% 1,000 ML IV STA (09:24)
[2019-02-16] MEDS ORDERED: ONDANSETRON 4 MG INJ IV STA (09:24)
[2019-02-16] MEDS ORDERED: LACTATED RINGER'S 1,000 ML IV STA (09:24)
--- NOTE | 2019-02-16 09:24 | ERD ---
ER Documentation Chief Complaint Chief Complaint called ems for blood sugar problem and had witnessed sz by ems. bs read hi HPI This is a 54-year-old woman with history of hypertension and diabetes who was brought in by EMS for sudden collapse and new onset tonic-clonic seizure activity as witnessed by EMS and family. Initial call was for hyperglycemia and seems patient was struggling with elevated blood pressure and blood sugar for about 2 days that got worse today. Patient has no history of seizure activity and does not use anticonvulsant therapy. She has had no recent fevers or chills, no vomiting or diarrhea, no complaints of chest pain or shortness of breath. Patient was agitated, lethargic and transported here by EMS ROS All systems reviewed and are negative except as per history of present illness. Medications Home Meds Active Scripts Insulin Glargine,Hum.rec.anlog (Basaglar Kwikpen U-100) 100 Unit/1 Ml Insuln.pen, 19 UNIT SC QHS for 30 Days, #6 EA 1 Refill Prov:SANCHEZ ANDERSON MD 01/14/19 Insulin Aspart* (Novolog Insulin Pen*) 100 Unit/Ml Soln, 6 UNIT SC WITH MEALS for 30 Days, #5 EA Prov:SANCHEZ ANDERSON MD 01/14/19 Lisinopril* (Lisinopril*) 20 Mg Tablet, 20 MG PO BID for 30 Days, #60 TAB Prov:SANCHEZ ANDERSON MD 01/14/19 Reported Medications Ondansetron Hcl* (Zofran*) 4 Mg Tab, 4 MG PO Q6H PRN for NAUSEA AND OR VOMITING, TAB 02/16/19 Vancomycin Hcl (Vancomycin Hcl Oral) 125 Mg Capsule, 125 MG PO Q6, CAP 02/16/19 Discontinued Reported Medications Ondansetron Hcl* (Zofran*) 4 Mg Tablet, 4 MG PO Q6H PRN for NAUSEA AND OR VOMITING, TAB 11/12/18 Polyethylene Glycol* (Miralax*) 17 Gm Powd.pack, 17 GM PO BID, #60 PACKET 11/12/18 Ascorbic Acid (Vitamin C) 500 Mg Tab, 500 MG PO DAILY, TAB 11/12/18 Zinc Sulfate* (Zinc Sulfate*) 220 Mg Cap, 220 MG PO DAILY, CAP 11/12/18 Famotidine* (Pepcid*) 20 Mg Tablet, 20 MG PO DAILY, #30 TAB 11/12/18 Amlodipine Besylate* (Amlodipine Besylate*) 10 Mg Tablet, 10 MG PO DAILY, #30 TAB 10/05/18 Discontinued Scripts Lancets (ACCU-CHEK) 1 Each Each, EACH , #1 Prov:SANCHEZ ANDERSON MD 01/14/19 Metronidazole* (Metronidazole*) 500 Mg Tablet, 500 MG PO Q6 for 10 Days, #40 TAB Prov:SANCHEZ ANDERSON MD 01/14/19 [place], Insulin Disposable (Fidelia Pen Needle) 1 Each Dis.needle, EACH ACHS A, #120 Prov:SANCHEZ ANDERSON MD 01/14/19 Lancets (Blood Lancets) 1 Each Each, EACH ACHS A, #120 Prov:SANCHEZ ANDERSON MD 01/14/19 Lactobacillus Rhamnosus GG (Culturelle) 1 Each Capsule, 1 CAP PO WITH MEALS for 30 Days, #90 CAP Prov:SANCHEZ ANDERSON MD 01/14/19 Gentamicin Sulfate* (Gentamicin Sulfate* Cream) 0.1% - 30 Gm Cream.gm., 1 APPLIC TOP TID for 30 Days, #1 TUB 6 Refills Prov:SANCHEZ ANDERSON MD 01/14/19 Bupropion Hcl (Bupropion Hcl SR) 150 Mg Tablet.sa, 150 MG PO BID for 11 Days Prov:ERNESTINE KELLOGG MD 10/27/18 Carvedilol* (Carvedilol*) 12.5 Mg Tablet, 12.5 MG PO BID for 14 Days, TAB Prov:ERNESTINE KELLOGG MD 10/27/18 Montelukast Sodium* (Montelukast Sodium*) 10 Mg Tablet, 10 MG PO HS for 30 Days, #30 TAB 6 Refills Prov:ERNESTINE KELLOGG MD 10/27/18 Aspirin (Aspirin) 81 Mg Chew, 81 MG PO DAILY for 30 Days, #30 TAB 6 Refills Prov:SANCHEZ ANDERSON MD 08/26/18 Hydralazine Hcl* (Apresoline*) 50 Mg Tab, 75 MG PO TID for 30 Days, #90 TAB 6 Refills Prov:SANCHEZ ANDERSON MD 08/26/18 Atorvastatin* (Atorvastatin*) 40 Mg Tablet, 40 MG PO HS for 30 Days, #30 TAB 6 Refills Prov:SANCHEZ ANDERSON MD 08/26/18 Clopidogrel Bisulfate (Clopidogrel) 75 Mg Tablet, 75 MG PO DAILY for 30 Days, #30 TAB 6 Refills Prov:SANCHEZ ANDERSON MD 08/26/18 Allergies Allergies: Coded Allergies: No Known Allergies (Unverified Allergy, Mild, 02/16/19) PMhx/Soc Chronic left foot wound with osteomyelitis, history of C. difficile positive colitis, diabetes mellitus, hypertension, chronic kidney injury, CAD, depression, dyslipidemia, peripheral vascular disease History of Surgery: Yes (left wound debridement, left thigh skin graft) Anesthesia Reaction: Yes (unsure) Hx Neurological Disorder: No Hx Respiratory Disorders: No Hx Cardiac Disorders: Yes (HTN,CHF) Hx Psychiatric Problems: No Hx Miscellaneous Medical Probl: No Hx Alcohol Use: No Hx Substance Use: No Hx Tobacco Use: No FmHx Family History: diabetes Physical Exam Vitals Vital Signs Date Temp Pulse Resp B/P (MAP) Pulse Ox O2 O2 Flow FiO2 Time Delivery Rate 02/16/19 126 18 169/84 100 Room Air 11:56 (112) 02/16/19 98.4 127 18 206/107 100 11:19 (140) 02/16/19 120 18 177/94 100 Room Air 10:23 (121) 02/16/19 98.2 120 20 170/81 98 09:21 (110) Physical Exam GENERAL: Elderly, chronically debilitated woman, appears confused, postictal, somewhat agitated, afebrile HEENT: Dry mucous membranes, pink conjunctive a, no cervical spine deformity, no goiter NEURO: Eyes closed, pupils equal round reactive to light, moving all extremities, no focal deficits, nonverbal, lethargic overall appears postictal CARDIAC: Tachycardic and regular, no murmurs rubs or gallops LUNGS: Clear bilaterally no wheezing crackles or stridor ABDOMEN: Soft nontender, no guarding, no rigidity, no rebound, no psoas sign no obturator sign. SKIN: Warm and dry to touch, no abrasions, contusions, or hematomas, no lacerations, no ecchymosis, buttock/sacral and left foot skin exams deferred EXTREMITIES: No clubbing cyanosis or edema, calves are bilaterally symmetrical, no Homans sign, no popliteal cord sign. Distal pulses equal and bilateral Result Diagram: 5/21/19 0946 5/21/19 0946 Results 24 hrs Laboratory Tests Test 02/16/19 09:34 02/16/19 09:46 02/16/19 10:00 02/16/19 10:17 Bedside Glucose > 595 mg/dL > 595 mg/dL White Blood 12.7 10^3/ul Count Red Blood Count 3.94 10^6/ul Hemoglobin 10.7 g/dl Hematocrit 34.6 % Mean 87.8 fl Corpuscular Volume Mean 27.2 pg Corpuscular Hemoglobin Mean 30.9 g/dl Corpuscular Hemoglobin Conc ent Red Cell 13.2 % Distribution Width Platelet Count 351 10^3/UL Mean Platelet 11.2 fl Volume Immature 0.300 % Granulocytes % Neutrophils % 92.5 % Lymphocytes % 3.9 % Monocytes % 3.1 % Eosinophils % 0.0 % Basophils % 0.2 % Nucleated Red 0.0 /100WBC Blood Cells % Immature 0.040 10^3/ul Granulocytes # Neutrophils # 11.7 10^3/ul Lymphocytes # 0.5 10^3/ul Monocytes # 0.4 10^3/ul Eosinophils # 0.0 10^3/ul Basophils # 0.0 10^3/ul Nucleated Red 0.0 10^3/ul Blood Cells # Prothrombin 12.7 Sec Time Prothrombin 1.0 Time Ratio INR 0.94 International Normalized Rati o Activated 30.8 Sec Partial Thrombo plast Time Sodium Level 134 mmol/L Potassium Level 5.8 mmol/L Chloride Level 95 mmol/L Carbon Dioxide 28 mmol/L Level Anion Gap 11 Blood Urea 53 mg/dl Nitrogen Creatinine 2.12 mg/dl Est Glomerular 24 mL/min Filtrat Rate mL/min Glucose Level 884 mg/dl Calcium Level 9.3 mg/dl Total Bilirubin 0.4 mg/dl Direct 0.00 mg/dl Bilirubin Indirect 0.4 mg/dl Bilirubin Aspartate Amino 18 IU/L Transf (AST/SGO T) Alanine 6 IU/L Aminotransferas e (ALT/SGPT) Alkaline 261 IU/L Phosphatase Troponin I 0.019 ng/ml Total Protein 7.1 g/dl Albumin 3.5 g/dl Globulin 3.60 g/dl Albumin/Globuli 0.97 n Ratio Lipase 268 U/L Blood Gas Blood arterial Specimen Source Arterial Blood 02/16/2019 10:48 Date Drawn :05 AM Arterial Blood 7.336 pH (Temp corrected ) Arterial Blood 48.3 mmhg pCO2 (Temp correct) Arterial Blood 85.6 mmHG pO2 (Temp corrected ) Arterial Blood 25.2 mmol/L HCO3 Arterial Blood -0.9 mmol/L Base Excess Arterial Blood 95.5 mmHG Oxygen Saturati on [place] Test ACCEPTAB Arterial Blood Right Radial Gas Puncture Site Arterial 0.3 % Blood Carboxyhe moglobin Arterial Blood 0.2 % Methemoglobin Blood Gas A-a 3.4 mmHg O2 Differential Oxyhemoglobin 95.0 % Percent Blood Gas 37.0 C Temperature Blood Gas 30 Actual Respiration Rat e Blood Gas ROOM AIR Modality FiO2 21.0 % Blood Gas er Critical Value Read Back Blood Gas ab Notified Whom Blood Gas 02/16/2019 11:18 Notified Time :07 AM Test 02/16/19 11:00 02/16/19 11:48 02/16/19 12:40 Urine Color COLORLESS Urine Clarity CLEAR Urine pH 7.0 Urine Specific 1.015 [place] Urine Ketones NEGATIVE mg/dL Urine Nitrite NEGATIVE mg/dL Urine Bilirubin NEGATIVE mg/dL Urine NEGATIVE mg/dL Urobilinogen Urine Leukocyte NEGATIVE Radha/ul Esterase Urine 5 /HPF Microscopic RBC Urine 0 /HPF Microscopic WBC Urine 1+ mg/dL Hemoglobin Urine Glucose 3+ mg/dL Urine Total 2+ mg/dl Protein Bedside Glucose 535 mg/dL 488 mg/dL Current Medications Medications Dose Sig/Kofi Start Time Status Last (Trade) Ordered Route PRN Stop Time Admin Dose Reason Admin 100 ml @ ONCE ONCE 02/16/19 DC 02/16/19 Levetiracetam 400 mls/hr IVPB 09:30 09:37 02/16/19 09:44 Sodium 1,000 ml @ Q1H STAT 02/16/19 DC 02/16/19 Chloride 1,000 mls/hr IV 09:24 09:45 02/16/19 10:23 Lactated 1,000 ml @ Q1H STAT 02/16/19 DC 02/16/19 Ringer's 1,000 mls/hr IV 09:24 09:38 02/16/19 10:23 Ondansetron 4 mg ONCE STAT 02/16/19 DC 02/16/19 HCl (Zofran IV 09:24 09:37 Inj) 02/16/19 09:26 Insulin 16 unit ONCE ONCE 02/16/19 DC 02/16/19 Human SC 09:30 09:36 Lispro 02/16/19 09:31 (Humalog) Diagnostic 1 ea 2 HRS AFTER 02/16/19 DC 02/16/19 Test (Pha) HUMALOG ONCE 09:30 09:30 (Accu-Chek) XX 02/16/19 09:31 Enalaprilat 1.25 mg ONCE ONCE 02/16/19 DC 02/16/19 (Vasotec Iv) IV 09:30 10:02 02/16/19 09:31 Lorazepam 1 mg ONCE ONCE 02/16/19 DC 02/16/19 (Ativan) IV 10:00 10:08 02/16/19 10:01 Nicardipine 200 ml @ TITRATE IV 02/16/19 02/16/19 HCl 50 mls/hr 11:30 11:43 Insulin 10 unit ONCE STAT 02/16/19 DC 02/16/19 Human IVP 11:41 11:54 Regular 02/16/19 11:43 (Humulin R) Dextrose ONCE PRN 02/16/19 (D50w IV DECREASED 12:00 Syringe) GLUCOSE Discontinue PROTOCOL 02/16/19 DC Miscellaneous all previ... ONCE XX 12:30 02/16/19 12:31 Information (* Miscellaneous Pharmacy Order) Diagnostic 1 ea Q1H XX 02/16/19 02/16/19 Test (Pha) 12:30 12:43 (Accu-Chek) Insulin 100 ml @ 0 PER 02/16/19 02/16/19 Human mls/hr PROTOCOL IV 12:30 12:42 Regular 100 unit/ Sodium Chloride Treatment Per 02/16/19 Miscellaneous of protocol XX 12:30 Hypoglycemia: Information 1.BG 51... (* Miscellaneous Pharmacy Order) Dextrose 25 ml Q15M PRN 02/16/19 (D50w IV 12:30 Syringe) .DECREASED GLUCOSE Dextrose 50 ml Q15M PRN 02/16/19 (D50w IV 12:30 Syringe) .DECREASED GLUCOSE Procedures/MDM IV line was established patient was placed on youth nutritional monitor rhythm strip revealed a sinus tachycardia at 130 bpm with upright P and T waves. Patient was afebrile EKG performed, read by me revealed a sinus tachycardia 126 bpm, normal axis, narrow QRS complex, no concerning ST elevations or depressions noted One AP view of the chest performed, read by me reveals no acute infiltrates, normal mediastinum, sharp costophrenic and cardiac borders, no air under the diaphragm. Otherwise unremarkable chest x-ray. CT scan of the brain was negative for acute bleed mass or shift I administered 2 L IV crystalloid, Zofran 4 mg IV, and Keppra 1 g IV for new onset seizure. For continued agitation and postictal state I administered lorazepam 1 mg IV x1 Critical Care: Time: 50 minutes, this was time separate from other billable procedures. Treatments/Evaluations: Close monitoring and treatment of unstable vital signs, cardiorespiratory, and neurologic status, while maintaining tight balance of fluid, respiratory, and cardiac interventions. Patient was extremely hypertensive and I initially treated her with enalapril 1.25 mg IV and then later with nicardipine drip. Blood sugar was extremely elevated at 884 although anion gap was within normal limits and bicarb was normal I have no evidence for diabetic ketoacidosis and treated her here with subcutaneous lispro insulin followed by IV insulin CBC reveals mild leukocytosis of 13 and mild anemia with hemoglobin of 11, electrolytes revealed dehydration acute kidney injury with a BUN/creatinine of 53/2.1, hyperkalemia 5.8, liver function tests normal, troponin negative, urinalysis negative for infection ABG was performed pH is 7.34, PCO2 50, PO2 of 86 Patient admitted to intensive care unit for continued medical management, neurology consultation, and blood sugar and blood pressure control Departure Diagnosis: Primary Impression: New onset seizure Additional Impressions: Postictal state Acute encephalopathy Hypertensive emergency Hyperosmolar hyperglycemic coma due to diabetes mellitus without ketoacidosis Acute dehydration Condition: Critical DIGNA SORIA MD February 16, 2019 09:24
[2019-02-16] MEDS ORDERED: INSULIN LISPRO 100 UNIT/ML VIAL SC ONE (09:30)
[2019-02-16] MEDS ORDERED: LEVETIRACETAM 1000 MG (PMX) 100 ML IVPB ONE (09:30)
[2019-02-16] MEDS ORDERED: ACCU-CHEK XX ONE (09:30)
[2019-02-16] MEDS ORDERED: ENALAPRILAT 1.25 MG INJ IV ONE (09:30)
[2019-02-16] MEDS ORDERED: LORAZEPAM 2 MG INJ IV ONE (10:00)
[2019-02-16] MEDS ORDERED: VANC125C4 PO (10:45)
[2019-02-16] MEDS ORDERED: ONDA4TAB13 PO (10:46)
[2019-02-16] MEDS: niCARdipine-NS 0.1MG/ML DRIP 200 ML IV SCH ×2 (11:32→11:43)
[2019-02-16] MEDS ORDERED: INSULIN REGULAR, HUMAN 100 UNIT/1 ML 3ML VIAL IVP STA (11:41)
[2019-02-16] MEDS ORDERED: DEXTROSE 50% 50 ML SYRINGE IV PRN ×3 (12:00→12:30)
[2019-02-16] MEDS ORDERED: INSULIN HUMAN REGULAR 100 UNIT in SOD CHLORIDE 0.9% 99 ML IV SCH (12:30)
[2019-02-16] MEDS: ACCU-CHEK XX SCH ×9 (12:43→22:21)
--- NOTE | 2019-02-16 15:25 | HP ---
Date/Time of Note Date/Time of Note DATE: 02/16/19 TIME: 15:25 Assessment/Plan VTE Prophylaxis Pharmacological prophylaxis: heparin Lines/Catheters IV Catheter Type (from Nrsg): Saline Lock Urinary Cath still in place: Yes Reason Cath still needed: other (indicate) (altered) Assessment/Plan Hospital Course acute encephalopathy, likely toxic metabolic , post ictal New onset Isolated seizure episode 2/2 #2 Hyperosmolar non ketotic hyperglycemic state Hypertensive emergency Hx of c-diff colitis [place] on CKD Chronic L foot wound with osteomyelitis -/p treatment? hyperkalemia PLan: admit ICU on insulin drip head Ct, eeg seizure precautions, no antiseizure meds for now s/p nicardipine drip with much improved bp aggressive fluid hydration antibiotics? podiatry consult serial electrolyte monitoring ICU supportive care close monitoring of resp status Result Diagram: 02/16/1946 02/16/19 0946 Results 24hrs Laboratory Tests Test 02/16/19 09:34 02/16/19 09:46 02/16/19 10:00 02/16/19 10:17 Bedside Glucose > 595 *H > 595 *H White Blood Count 12.7 #H Red Blood Count 3.94 L Hemoglobin 10.7 L Hematocrit 34.6 L Mean Corpuscular 87.8 Volume Mean Corpuscular 27.2 L Hemoglobin Mean Corpuscular 30.9 L Hemoglobin Concen t Red Cell 13.2 Distribution Width Platelet Count 351 Mean Platelet 11.2 H Volume Immature 0.300 Granulocytes % Neutrophils % 92.5 H Lymphocytes % 3.9 L Monocytes % 3.1 Eosinophils % 0.0 Basophils % 0.2 Nucleated Red 0.0 Blood Cells % Immature 0.040 H Granulocytes # Neutrophils # 11.7 H Lymphocytes # 0.5 L Monocytes # 0.4 Eosinophils # 0.0 Basophils # 0.0 Nucleated Red 0.0 Blood Cells # Prothrombin Time 12.7 Prothrombin Time 1.0 Ratio INR International 0.94 Normalized Ratio Activated 30.8 Partial Thrombopl ast Time Sodium Level 134 L Potassium Level 5.8 H Chloride Level 95 L Carbon Dioxide 28 Level Anion Gap 11 Blood Urea 53 H Nitrogen Creatinine 2.12 H Est Glomerular 24 L Filtrat Rate mL/min Glucose Level 884 *H Calcium Level 9.3 Total Bilirubin 0.4 Direct Bilirubin 0.00 Indirect 0.4 Bilirubin Aspartate Amino 18 Transf (AST/SGOT) Alanine 6 L Aminotransferase (ALT/SGPT) Alkaline 261 H Phosphatase Troponin I 0.019 Total Protein 7.1 Albumin 3.5 Globulin 3.60 H Albumin/Globulin 0.97 Ratio Lipase 268 Blood Gas Blood arterial Specimen Source Arterial Blood 02/16/2019 10:48: Date Drawn 05 AM Arterial Blood pH 7.336 L (Temp corrected) Arterial Blood 48.3 H pCO2 (Temp correct) Arterial Blood 85.6 pO2 (Temp corrected) Arterial Blood 25.2 HCO3 Arterial Blood -0.9 Base Excess Arterial Blood 95.5 Oxygen Saturation [place] Test ACCEPTAB Arterial Blood Right Radial Gas Puncture Site Arterial 0.3 Blood Carboxyhemo globin Arterial Blood 0.2 Methemoglobin Blood Gas A-a O2 3.4 L Differential Oxyhemoglobin 95.0 Percent Blood Gas 37.0 Temperature Blood Gas Actual 30 Respiration Rate Blood Gas ROOM AIR Modality FiO2 21.0 Blood Gas er Critical Value Read Back Blood Gas ab Notified Whom Blood Gas 02/16/2019 11:18: Notified Time 07 AM Test 02/16/19 11:00 02/16/19 11:48 02/16/19 12:40 02/16/19 13:40 Urine Color COLORLESS Urine Clarity CLEAR Urine pH 7.0 Urine Specific 1.015 [place] Urine Ketones NEGATIVE Urine Nitrite NEGATIVE Urine Bilirubin NEGATIVE Urine NEGATIVE Urobilinogen Urine Leukocyte NEGATIVE Esterase Urine Microscopic 5 RBC Urine Microscopic 0 WBC Urine Hemoglobin 1+ H Urine Glucose 3+ H Urine Total 2+ H Protein Bedside Glucose 535 *H 488 *H 298 H Test 02/16/19 14:34 Bedside Glucose 208 HPI/ROS Admit Date/Time Admit Date/Time Hx of Present Illness 54-year-old female who was brought in by ambulance because of new onset s eizures. Apparently the patient came from home. Per emergency room notes, the patient had a sudden collapse and new onset tonic-clonic seizure that was witnessed by both family and EMS. Per report the patient has been having elevated blood pressures and blood sugars for the last 2 days. At the time of my evaluation, no history was obtainable from the patient as she was postictal. She was somnolent and did not follow commands. ROS 12 point review if systems was done and pertinent findings are as noted. PMH/Family/Social Past Medical History 1. Chronic left foot wound with osteomyelitis 2. C. difficile colitis 3. DM 4. [place] on CKD- resolved 5. Anemia 6. CAD 7. Chronic depression Medications Current Medications Nicardipine HCl 200 ml @ 50 mls/hr TITRATE IV Last administered on 02/16/19at 11:43; Admin Dose 50 MLS/HR; Start 02/16/19 at 11:30 Dextrose (D50w Syringe) ONCE PRN IV DECREASED GLUCOSE; Start 02/16/19 at 12:00 Diagnostic Test (Pha) (Accu-Chek) 1 ea Q1H XX Last administered on 02/16/19at 14:34; Admin Dose 1 EA; Start 02/16/19 at 12:30 Insulin Human Regular 100 unit/ Sodium Chloride 100 ml @ 0 mls/hr PER PROTOCOL IV Last administered on 02/16/19at 12:42; Admin Dose 0 MLS/HR; Start 02/16/19 at 12:30 Miscellaneous Information (* Miscellaneous Pharmacy Order) Treatment of Hypoglycemia: 1.BG 51... Per protocol XX ; Start 02/16/19 at 12:30 Dextrose (D50w Syringe) 25 ml Q15M PRN IV .DECREASED GLUCOSE; Start 02/16/19 at 12:30 Dextrose (D50w Syringe) 50 ml Q15M PRN IV .DECREASED GLUCOSE; Start 02/16/19 at 12:30 Coded Allergies: No Known Allergies (Unverified Allergy, Mild, 02/16/19) Past Surgical History Past Surgical Hx: other Family History Significant Family History: no pertinent family hx Social History Alcohol Use: none Smoking Status: Never smoker Drug Use: none Exam/Review of Systems Vital Signs Vitals Vital Signs Date Temp Pulse Resp B/P (MAP) Pulse Ox O2 O2 Flow FiO2 Time Delivery Rate 02/16/19 101 10 152/22 100 Room Air 15:15 (65) 02/16/19 98.4 11:19 Exam Constitutional: other (altered); No alert, No oriented Psych: other (unable to assess) Head: normocephalic, atraumatic Eyes: PERRL Respiratory: diminished breath sounds Cardiovascular: regular rate and rhythm; No murmurs/extra sounds Gastrointestinal: soft, bowel sounds, distended (mildly) Extremities: No edema Neurological: other (altered, moving all extremties) Skin: No rash or lesions Additional Comments ROCEDURE: CT brain without contrast CLINICAL INDICATION: Altered mental status TECHNIQUE: CT of the brain without contrast performed on a multidetector CT scanner, with multiplanar reformats. One or more of the following dose reduction techniques were used: Automated exposure control, adjustment in mA and / or kV according to patient size, use of iterative reconstructive technique. CTDIvol = 40 mGy; DLP = 634 mGy-cm. DICOM images are available. COMPARISON: 10/18/2018 FINDINGS: No acute intracranial hemorrhage is identified. No extra-axial fluid collection is seen. There is no mass effect. No midline shift is identified. The ventricles and sulci are mildly enlarged compatible with generalized volume loss. There are mild areas of hypodensity in the periventricular - deep white matter which are nonspecific but suggestive of chronic small vessel ischemic changes. Goff-white junctions are preserved. There is a subtle punctate peripheral calcification at the left frontoparietal region. Atherosclerotic calcifications of the intracranial internal carotid arteries are noted. Calvarium and skull base are intact. Mastoid air cells and imaged paranasal sinuses grossly clear. IMPRESSION: 1. No evidence of acute intracranial pathology. 2. Mild generalized volume loss, with mild chronic small vessel ischemic changes. 3. Punctate cerebral calcification which may be post infectious/inflammatory, s equela of neurocysticercosis. RPTAT: VV .Teodoro Blake MD, MD Date Time Electronically viewed and signed by .Teodoro Blake MD, MD on 02/16/2019 09:31 .O/ CC: DIGNA SORIA MD PROCEDURE: CHEST - 1 VIEW CLINICAL INDICATION: 54-year-old female with chest/abdominal pain. TECHNIQUE: A single frontal AP portable view of the chest was performed. The images were reviewed on a PACS workstation. COMPARISON: CR CHEST 07/30/2018; CR CHEST 01/27/2014 FINDINGS: The cardiomediastinal silhouette has a normal appearance. There is no evidence for an infiltrate. There is no evidence for congestive heart failure. There is no evidence for pneumothorax. The osseous structures are intact. IMPRESSION: No evidence for active cardiopulmonary disease. .Scotty Patel MD, MD Date Time Electronically viewed and signed by .Scotty Patel MD, MD on 02/16/2019 09:45 .M/ CC: DIGNA SORIA MD [phone] I reviewed EKG Rate: tachy Rhythm: sinus Note: No ST elevation or depressions noted concerning for acute ischemic event. ERICKA CATHERINE February 16, 2019 15:25
[2019-02-16] MEDS ORDERED: ONDANSETRON 4 MG INJ IV PRN (15:30)
[2019-02-16] MEDS ORDERED: LORAZEPAM 2 MG INJ IV PRN (15:30)
[2019-02-16] MEDS: SOD CHLORIDE 0.9% 1,000 ML IV SCH (15:49)
[2019-02-16] MEDS ORDERED: ACETAMINOPHEN 650 MG SUPP PR STA (16:14)
[2019-02-16] MEDS: FAMOTIDINE 20 MG INJ IV SCH (21:17)
[2019-02-16] MEDS: HEPARIN 5,000 UNIT/1 ML VIAL SC SCH (21:17)
[2019-02-16] MEDS: hydrALAzine 20 MG INJ IV PRN (22:06)
[2019-02-17] VITALS (8 sets, daily range): BP systolic 120–205; BP diastolic 66–87; PULSE 66–88; RESP 18–20; Ht 170.2 cm; Wt 59.2 kg
[2019-02-17] MEDS: ACCU-CHEK XX SCH ×5 (00:22→06:30)
[2019-02-17] MEDS: METOPROLOL 25 MG TAB PO SCH ×3 (00:30→20:52)
[2019-02-17] MEDS ORDERED: PIPER-TAZO 2.25 GM (PMX) 50 ML IVPB SCH (00:30)
[2019-02-17] MEDS: SOD CHLORIDE 0.9% 1,000 ML IV SCH ×2 (03:33→11:30)
[2019-02-17] MEDS ORDERED: INSULIN GLARGINE [LANTus] (100 UNITS/ML) SYG SC ONE (06:00)
[2019-02-17] MEDS: FAMOTIDINE 20 MG INJ IV SCH (09:58)
[2019-02-17] MEDS: NIFEdipine (XL) 30 MG TAB PO SCH (09:58)
[2019-02-17] MEDS: HEPARIN 5,000 UNIT/1 ML VIAL SC SCH ×2 (10:05→20:54)
[2019-02-17] MEDS: hydrALAzine 20 MG INJ IV PRN (10:11)
--- NOTE | 2019-02-17 11:14 | PN ---
Date/Time of Note Date/Time of Note DATE: 02/17/19 TIME: 11:08 Assessment/Plan VTE Prophylaxis Pharmacological prophylaxis: heparin Lines/Catheters IV Catheter Type (from Nrs): Saline Lock Urinary Cath still in place: Yes Reason Cath still needed: other (indicate) Assessment/Plan Hospital Course assessment and plan: acute encephalopathy, likely toxic metabolic -remain lethargic New onset Isolated seizure episode 2/2 #2 -no further seizures, f/u EEG Hyperosmolar non ketotic hyperglycemic state -resolved DM2 : -family reports non compliance but a1C 5.4 ? -resume lantus / novolog regimen Hypertensive emergency -improved, now started on oral meds Hx of c-diff colitis Ric[place] on CKD -improved Chronic L foot wound with osteomyelitis -s/p treatment? -wound is still oozing, will reconsult podiatry hyperkalemia resolved dyslipidemia -add asa/ statin PLan: -continue current regimen -still lethargic, f/u eeg, PT eval -seizure precautions, no antiseizure meds for now -continue inpatient monitoring Result Diagram: 02/16/19 0946 02/17/19 0539 Results 24hrs Laboratory Tests Test 02/16/19 11:48 02/16/19 12:40 02/16/19 13:40 02/16/19 14:34 Bedside Glucose 535 *H 488 *H 298 H 208 Test 02/16/19 15:37 02/16/19 16:53 02/16/19 17:31 02/16/19 17:34 Bedside Glucose 166 130 114 Creatine Kinase 56 Creatine Kinase 1.5 Index Creatinine Kinase MB 0.83 (Mass) Troponin I 0.045 Test 02/16/19 18:34 02/16/19 20:05 02/16/19 21:49 02/16/19 22:21 Bedside Glucose 123 120 120 Creatine Kinase 79 Creatine Kinase 1.0 Index Creatinine Kinase MB 0.76 (Mass) Troponin I 0.055 Test 02/17/19 00:22 02/17/19 01:57 02/17/19 02:56 02/17/19 04:18 Bedside Glucose 157 104 127 86 Test 02/17/19 05:31 02/17/19 05:39 02/17/19 06:54 02/17/19 09:13 Bedside Glucose 100 116 126 Sodium Level 144 Potassium Level 3.9 Chloride Level 113 H Carbon Dioxide Level 29 Anion Gap 2 #L Blood Urea Nitrogen 33 #H Creatinine 1.41 H Est Glomerular 39 L Filtrat Rate mL/min Glucose Level 114 # Hemoglobin A1c 5.4 Calcium Level 8.9 Phosphorus Level 3.6 Magnesium Level 2.0 Triglycerides Level 201 H Cholesterol Level 242 H LDL Cholesterol, 160 Calculated HDL Cholesterol 42 Cholesterol/HDL 5.7 Ratio Thyroid Stimulating 0.555 Hormone (TSH) Subjective 24 Hr Interval Summary Free Text/Dictation no new complaints. Very lethargic Exam/Review of Systems Exam Vitals Vital Signs Date Temp Pulse Resp B/P (MAP) Pulse Ox O2 O2 Flow FiO2 Time Delivery Rate 02/17/19 85 18 140/66 10:46 (90) 02/17/19 98.9 98 Room Air 09:24 02/16/19 2.0 15:15 Intake and Output 02/16/19 02/16/19 02/17/19 1515:00 23:00 07:00 OutputOutput Total 1450 ml BalanceBalance -1450 ml Results Results 24hrs Laboratory Tests Test 02/16/19 11:48 02/16/19 12:40 02/16/19 13:40 02/16/19 14:34 Bedside Glucose 535 *H 488 *H 298 H 208 Test 02/16/19 15:37 02/16/19 16:53 02/16/19 17:31 02/16/19 17:34 Bedside Glucose 166 130 114 Creatine Kinase 56 Creatine Kinase 1.5 Index Creatinine Kinase MB 0.83 (Mass) Troponin I 0.045 Test 02/16/19 18:34 02/16/19 20:05 02/16/19 21:49 02/16/19 22:21 Bedside Glucose 123 120 120 Creatine Kinase 79 Creatine Kinase 1.0 Index Creatinine Kinase MB 0.76 (Mass) Troponin I 0.055 Test 02/17/19 00:22 02/17/19 01:57 02/17/19 02:56 02/17/19 04:18 Bedside Glucose 157 104 127 86 Test 02/17/19 05:31 02/17/19 05:39 02/17/19 06:54 02/17/19 09:13 Bedside Glucose 100 116 126 Sodium Level 144 Potassium Level 3.9 Chloride Level 113 H Carbon Dioxide Level 29 Anion Gap 2 #L Blood Urea Nitrogen 33 #H Creatinine 1.41 H Est Glomerular 39 L Filtrat Rate mL/min Glucose Level 114 # Hemoglobin A1c 5.4 Calcium Level 8.9 Phosphorus Level 3.6 Magnesium Level 2.0 Triglycerides Level 201 H Cholesterol Level 242 H LDL Cholesterol, 160 Calculated HDL Cholesterol 42 Cholesterol/HDL 5.7 Ratio Thyroid Stimulating 0.555 Hormone (TSH) Medications Medication Current Medications Sodium Chloride 1,000 ml @ 150 mls/hr Q6H40M IV Last administered on 02/17/19at 03:33; Admin Dose 150 MLS/HR; Start 02/16/19 at 15:30 Ondansetron HCl (Zofran Inj) 4 mg Q6H PRN IV NAUSEA AND/OR VOMITING; Start 02/16/19 at 15:30 Lorazepam (Ativan) 2 mg Q6H PRN IV seizure or agitation; Start 02/16/19 at 15:30 Famotidine (Pepcid Iv) 20 mg DAILY IV Last administered on 02/17/19at 09:58; Admin Dose 20 MG; Start 02/16/19 at 21:00 Heparin Sodium (Porcine) (Heparin (5000 Units/1ml)) 5,000 unit BID SC Last administered on 02/17/19at 10:05; Admin Dose 5,000 UNIT; Start 02/16/19 at 21:00 Hydralazine HCl (Apresoline) 10 mg Q6H PRN IV sbp>160mmhg Last administered on 02/17/19at 10:11; Admin Dose 10 MG; Start 02/16/19 at 16:00 Metoprolol Tartrate (Lopressor) 25 mg BID PO Last administered on 02/17/19at 10:52; Admin Dose 25 MG; Start 02/17/19 at 00:30 Nifedipine (Procardia Xl) 30 mg DAILY PO Last administered on 02/17/19at 09:58; Admin Dose 30 MG; Start 02/17/19 at 09:00 Piperacillin Sod/ Tazobactam Sod 50 ml @ 100 mls/hr Q8 IVPB ; Start 02/17/19 at 13:00 Diagnostic Test (Pha) (Accu-Chek) 1 ea 02 XX ; Start 02/18/19 at 02:00 Insulin Glargine (Lantus) 15 units DAILY@0800 SC ; Start 02/18/19 at 08:00 Insulin Aspart (Novolog Insulin Pen) 5 unit WITH MEALS SC ; Start 02/17/19 at 11:50 Insulin Aspart (Novolog Insulin Pen) NOVOLOG *MILD* ALGORITHM WITH MEALS BEDTIME SC ; Start 02/17/19 at 11:50 Miscellaneous Information 1 ea NOTE XX ; Start 02/17/19 at 11:30 Glucose (Glutose) 15 gm Q15M PRN PO DECREASED GLUCOSE; Start 02/17/19 at 11:30 Glucose (Glutose) 22.5 gm Q15M PRN PO DECREASED GLUCOSE; Start 02/17/19 at 11:30 Dextrose (D50w Syringe) 25 ml Q15M PRN IV DECREASED GLUCOSE; Start 02/17/19 at 11:30 Dextrose (D50w Syringe) 50 ml Q15M PRN IV DECREASED GLUCOSE; Start 02/17/19 at 11:30 Glucagon (Glucagen) 1 mg Q15M PRN IM DECREASED GLUCOSE; Start 02/17/19 at 11:30 Glucose (Glutose) 15 gm Q15M PRN BUCCAL DECREASED GLUCOSE; Start 02/17/19 at 11:30 ERICKA CATHERINE February 17, 2019 11:14
[2019-02-17] MEDS ORDERED: GLUCAGON 1 MG INJ IM PRN (11:30)
[2019-02-17] MEDS ORDERED: DEXTROSE 50% 50 ML SYRINGE IV PRN ×2 (11:30)
[2019-02-17] MEDS ORDERED: GLUCOSE GEL 15 GRAM TUBE BUCCAL PRN (11:30)
[2019-02-17] MEDS ORDERED: GLUCOSE GEL 15 GRAM TUBE PO PRN ×2 (11:30)
[2019-02-17] MEDS: INSULIN ASPART [NOVOLOG] 3 ML PEN SC SCH ×5 (12:31→20:51)
[2019-02-17] MEDS: PIPER-TAZO 2.25 GM (PMX) 50 ML IVPB SCH ×2 (12:39→21:00)
--- NOTE | 2019-02-17 12:53 | CONS ---
Assessment/Plan Assessment/Plan Hospital Course 54 yo F with multiple comorbidities who presents for evaluation of seizures, her first reported of life... for which neurology is consulted. The clinical picture is most consistent with a provoked seizure, in the context of severe hyperglycemia. New onset epilepsy is not yet excluded. CTH is unrevealing. P: MRI brain without contrast for further characterization Await EEG to evaluate for epileptiform activity Ok to defer AED therapy for now Ativan IV PRN prolonged seizure or for cluster Cont medical management per primary PT/OT as necessary Will follow clinically, to recommend neurologic studies, as necessary Consultation Date/Type/Reason Admit Date/Time Type of Consult Neurology Reason for Consultation new onset seizures Requesting Provider: ERICKA CATHERINE Date/Time of Note DATE: 02/17/19 TIME: 12:52 Hx of Present Illness The pt is currently unable to contribute a meaningful hx. The pt's family confirms the story below. They additionally state that the pt was admitted to a SNF about a month ago and left AMA to live with her daughter. She reportedly was noncompliant with all medications since that time. It is elsewhere noted: Hx of Present Illness 54-year-old female who was brought in by ambulance because of new onset seizures. Apparently the patient came from home. Per emergency room notes, the patient had a sudden collapse and new onset tonic-clonic seizure that was witnessed by both family and EMS. Per report the patient has been having elevated blood pressures and blood sugars for the last 2 days. At the time of my evaluation, no history was obtainable from the patient as she was postictal. She was somnolent and did not follow commands. negative unless noted otherwise in HPI Exam/Review of Systems Exam Vitals Vital Signs Date Temp Pulse Resp B/P (MAP) Pulse Ox O2 O2 Flow FiO2 Time Delivery Rate 02/17/19 70 12:30 02/17/19 98.0 18 120/87 97 Room Air 11:28 (98) 02/16/19 2.0 15:15 Intake and Output 02/16/19 02/16/19 02/17/19 1515:00 23:00 07:00 OutputOutput Total 1450 ml BalanceBalance -1450 ml Exam PE: Gen Appearance: No Apparent Distress HEENT: Normocephalic Cardiovascular: Regular rate Lungs: Clear bilaterally Abdomen: Soft Extremities: Dry; L foot dressing NE: The patient was alert and oriented to self and hospital. Language was normal. Fund of knowledge was limited. Pupils were equal and reactive to light. There was no afferent pupillary defect. Visual isabel were normal. Funduscopic examination was limited. Extra-ocular movements were full. Ptosis was absent. There was no nystagmus. Facial sensation was normal. Face was symmetric with normal strength. Hearing was intact. Palate movements were normal. Neck strength was normal. There was normal tongue bulk and speed of movement. Tone was normal. Muscle bulk was normal. I did not see fasciculations. Arms and legs were strong. Vibration sensation was normal. Temperature and pinprick sensation was normal. Rapid alternating movements were normal. There was no dysmetria. There was no intention tremor. Gait was deferred due to bedrest. Arm and leg reflexes were 2+ and symmetric. Álvarez's sign was absent. Plantar responses were flexor. Results Result Diagram: 02/16/19 0946 02/17/19 0539 Results 24hrs Laboratory Tests Test 02/16/19 13:40 02/16/19 14:34 02/16/19 15:37 02/16/19 16:53 Bedside Glucose 298 H 208 166 130 Test 02/16/19 17:31 02/16/19 17:34 02/16/19 18:34 02/16/19 20:05 Creatine Kinase 56 Creatine Kinase 1.5 Index Creatinine Kinase MB 0.83 (Mass) Troponin I 0.045 Bedside Glucose 114 123 120 Test 02/16/19 21:49 02/16/19 22:21 02/17/19 00:22 02/17/19 01:57 Creatine Kinase 79 Creatine Kinase 1.0 Index Creatinine Kinase MB 0.76 (Mass) Troponin I 0.055 Bedside Glucose 120 157 104 Test 02/17/19 02:56 02/17/19 04:18 02/17/19 05:31 02/17/19 05:39 Bedside Glucose 127 86 100 Sodium Level 144 Potassium Level 3.9 Chloride Level 113 H Carbon Dioxide Level 29 Anion Gap 2 #L Blood Urea Nitrogen 33 #H Creatinine 1.41 H Est Glomerular 39 L Filtrat Rate mL/min Glucose Level 114 # Hemoglobin A1c 5.4 Calcium Level 8.9 Phosphorus Level 3.6 Magnesium Level 2.0 Triglycerides Level 201 H Cholesterol Level 242 H LDL Cholesterol, 160 Calculated HDL Cholesterol 42 Cholesterol/HDL 5.7 Ratio Thyroid Stimulating 0.555 Hormone (TSH) Test 02/17/19 06:54 02/17/19 09:13 02/17/19 11:30 02/17/19 12:00 Bedside Glucose 116 126 142 Hemoglobin A1c 11.8 H Medications Medication Current Medications Sodium Chloride 1,000 ml @ 150 mls/hr Q6H40M IV Last administered on 02/17/19 03:33; Admin Dose 150 MLS/HR; Start 02/16/19 at 15:30 Ondansetron HCl (Zofran Inj) 4 mg Q6H PRN IV NAUSEA AND/OR VOMITING; Start 02/16/19 at 15:30 Lorazepam (Ativan) 2 mg Q6H PRN IV seizure or agitation; Start 02/16/19 at 15:30 Famotidine (Pepcid Iv) 20 mg DAILY IV Last administered on 02/17/19at 09:58; Admin Dose 20 MG; Start 02/16/19 at 21:00 Heparin Sodium (Porcine) (Heparin (5000 Units/1ml)) 5,000 unit BID SC Last administered on 02/17/19at 10:05; Admin Dose 5,000 UNIT; Start 02/16/19 at 21:00 Hydralazine HCl (Apresoline) 10 mg Q6H PRN IV sbp>160mmhg Last administered on 02/17/19at 10:11; Admin Dose 10 MG; Start 02/16/19 at 16:00 Metoprolol Tartrate (Lopressor) 25 mg BID PO Last administered on 02/17/19 10:52; Admin Dose 25 MG; Start 02/17/19 at 00:30 Nifedipine (Procardia Xl) 30 mg DAILY PO Last administered on 02/17/19 09:58; Admin Dose 30 MG; Start 02/17/19 at 09:00 Piperacillin Sod/ Tazobactam Sod 50 ml @ 100 mls/hr Q8 IVPB Last administered on 02/17/19at 12:39; Admin Dose 100 MLS/HR; Start 02/17/19 at 13:00 Diagnostic Test (Pha) (Accu-Chek) 1 ea 02 XX ; Start 02/18/19 at 02:00 Insulin Glargine (Lantus) 15 units DAILY@0800 SC ; Start 02/18/19 at 08:00 Insulin Aspart (Novolog Insulin Pen) 5 unit WITH MEALS SC Last administered on 02/17/19at 12:31; Admin Dose 5 UNIT; Start 02/17/19 at 11:50 Insulin Aspart (Novolog Insulin Pen) NOVOLOG *MILD* ALGORITHM WITH MEALS BEDTIME SC Last administered on 02/17/19at 12:31; Admin Dose 1 UNIT; Start 02/17/19 at 11:50 Miscellaneous Information 1 ea NOTE XX ; Start 02/17/19 at 11:30 Glucose (Glutose) 15 gm Q15M PRN PO DECREASED GLUCOSE; Start 02/17/19 at 11:30 Glucose (Glutose) 22.5 gm Q15M PRN PO DECREASED GLUCOSE; Start 02/17/19 at 11:30 Dextrose (D50w Syringe) 25 ml Q15M PRN IV DECREASED GLUCOSE; Start 02/17/19 at 11:30 Dextrose (D50w Syringe) 50 ml Q15M PRN IV DECREASED GLUCOSE; Start 02/17/19 at 11:30 Glucagon (Glucagen) 1 mg Q15M PRN IM DECREASED GLUCOSE; Start 02/17/19 at 11:30 Glucose (Glutose) 15 gm Q15M PRN BUCCAL DECREASED GLUCOSE; Start 02/17/19 at 11:30 Past Medical History reviewed Home Meds Active Scripts Insulin Glargine,Hum.rec.anlog (Basaglar Kwikpen U-100) 100 Unit/1 Ml Insuln.pen, 19 UNIT SC QHS for 30 Days, #6 EA 1 Refill Prov:SANCHEZ ANDERSON MD 01/14/19 Insulin Aspart* (Novolog Insulin Pen*) 100 Unit/Ml Soln, 6 UNIT SC WITH MEALS for 30 Days, #5 EA Prov:SANCHEZ ANDERSON MD 01/14/19 Lisinopril* (Lisinopril*) 20 Mg Tablet, 20 MG PO BID for 30 Days, #60 TAB Prov:SANCHEZ ANDERSON MD 01/14/19 Reported Medications Ondansetron Hcl* (Zofran*) 4 Mg Tab, 4 MG PO Q6H PRN for NAUSEA AND OR VOMITING, TAB 02/16/19 Vancomycin Hcl (Vancomycin Hcl Oral) 125 Mg Capsule, 125 MG PO Q6, CAP 02/16/19 Discontinued Reported Medications Ondansetron Hcl* (Zofran*) 4 Mg Tablet, 4 MG PO Q6H PRN for NAUSEA AND OR VOMITING, TAB 11/12/18 Polyethylene Glycol* (Miralax*) 17 Gm Powd.pack, 17 GM PO BID, #60 PACKET 11/12/18 Ascorbic Acid (Vitamin C) 500 Mg Tab, 500 MG PO DAILY, TAB 11/12/18 Zinc Sulfate* (Zinc Sulfate*) 220 Mg Cap, 220 MG PO DAILY, CAP 11/12/18 Famotidine* (Pepcid*) 20 Mg Tablet, 20 MG PO DAILY, #30 TAB 11/12/18 Amlodipine Besylate* (Amlodipine Besylate*) 10 Mg Tablet, 10 MG PO DAILY, #30 TAB 10/05/18 Discontinued Scripts Lancets (ACCU-CHEK) 1 Each Each, EACH MC, #1 Prov:SANCHEZ ANDERSON MD 01/14/19 Metronidazole* (Metronidazole*) 500 Mg Tablet, 500 MG PO Q6 for 10 Days, #40 TAB Prov:SANCHEZ ANDERSON MD 01/14/19 [place], Insulin Disposable (Fidelia Pen Needle) 1 Each Dis.needle, EACH ACHS A, #120 Prov:SANCHEZ ANDERSON MD 01/14/19 Lancets (Blood Lancets) 1 Each Each, EACH ACHS A, #120 Prov:SANCHEZ ANDERSON MD 01/14/19 Lactobacillus Rhamnosus GG (Culturelle) 1 Each Capsule, 1 CAP PO WITH MEALS for 30 Days, #90 CAP Prov:SANCHEZ ANDERSON MD 01/14/19 Gentamicin Sulfate* (Gentamicin Sulfate* Cream) 0.1% - 30 Gm Cream.gm., 1 APPLIC TOP TID for 30 Days, #1 TUB 6 Refills Prov:SANCHEZ ANDERSON MD 01/14/19 Bupropion Hcl (Bupropion Hcl SR) 150 Mg Tablet.sa, 150 MG PO BID for 11 Days Prov:ERNESTINE EKLLOGG MD 10/27/18 Carvedilol* (Carvedilol*) 12.5 Mg Tablet, 12.5 MG PO BID for 14 Days, TAB Prov:ERNESTINE KELLOGG MD 10/27/18 Montelukast Sodium* (Montelukast Sodium*) 10 Mg Tablet, 10 MG PO HS for 30 Days, #30 TAB 6 Refills Prov:ERNESTINE KELLOGG MD 10/27/18 Aspirin (Aspirin) 81 Mg Chew, 81 MG PO DAILY for 30 Days, #30 TAB 6 Refills Prov:SANCHEZ ANDERSON MD 08/26/18 Hydralazine Hcl* (Apresoline*) 50 Mg Tab, 75 MG PO TID for 30 Days, #90 TAB 6 Refills Prov:SANCHEZ ANDERSON MD 08/26/18 Atorvastatin* (Atorvastatin*) 40 Mg Tablet, 40 MG PO HS for 30 Days, #30 TAB 6 Refills Prov:SANCHEZ ANDERSON MD 08/26/18 Clopidogrel Bisulfate (Clopidogrel) 75 Mg Tablet, 75 MG PO DAILY for 30 Days, #30 TAB 6 Refills Prov:SANCHEZ ANDERSON MD 08/26/18 Medications Current Medications Sodium Chloride 1,000 ml @ 150 mls/hr Q6H40M IV Last administered on 02/17/19 03:33; Admin Dose 150 MLS/HR; Start 02/16/19 at 15:30 Ondansetron HCl (Zofran Inj) 4 mg Q6H PRN IV NAUSEA AND/OR VOMITING; Start 02/16/19 at 15:30 Lorazepam (Ativan) 2 mg Q6H PRN IV seizure or agitation; Start 02/16/19 at 15:30 Famotidine (Pepcid Iv) 20 mg DAILY IV Last administered on 02/17/19 09:58; Admin Dose 20 MG; Start 02/16/19 at 21:00 Heparin Sodium (Porcine) (Heparin (5000 Units/1ml)) 5,000 unit BID SC Last administered on 02/17/19 10:05; Admin Dose 5,000 UNIT; Start 02/16/19 at 21:00 Hydralazine HCl (Apresoline) 10 mg Q6H PRN IV sbp>160mmhg Last administered on 02/17/19 10:11; Admin Dose 10 MG; Start 02/16/19 at 16:00 Metoprolol Tartrate (Lopressor) 25 mg BID PO Last administered on 02/17/19 10:52; Admin Dose 25 MG; Start 02/17/19 at 00:30 Nifedipine (Procardia Xl) 30 mg DAILY PO Last administered on 02/17/19 09:58; Admin Dose 30 MG; Start 02/17/19 at 09:00 Piperacillin Sod/ Tazobactam Sod 50 ml @ 100 mls/hr Q8 IVPB Last administered on 02/17/19at 12:39; Admin Dose 100 MLS/HR; Start 02/17/19 at 13:00 Diagnostic Test (Pha) (Accu-Chek) 1 ea 02 XX ; Start 02/18/19 at 02:00 Insulin Glargine (Lantus) 15 units DAILY@0800 SC ; Start 02/18/19 at 08:00 Insulin Aspart (Novolog Insulin Pen) 5 unit WITH MEALS SC Last administered on 02/17/19at 12:31; Admin Dose 5 UNIT; Start 02/17/19 at 11:50 Insulin Aspart (Novolog Insulin Pen) NOVOLOG *MILD* ALGORITHM WITH MEALS BEDTIME SC Last administered on 02/17/19at 12:31; Admin Dose 1 UNIT; Start 02/17/19 at 11:50 Miscellaneous Information 1 ea NOTE XX ; Start 02/17/19 at 11:30 Glucose (Glutose) 15 gm Q15M PRN PO DECREASED GLUCOSE; Start 02/17/19 at 11:30 Glucose (Glutose) 22.5 gm Q15M PRN PO DECREASED GLUCOSE; Start 02/17/19 at 11:30 Dextrose (D50w Syringe) 25 ml Q15M PRN IV DECREASED GLUCOSE; Start 02/17/19 at 11:30 Dextrose (D50w Syringe) 50 ml Q15M PRN IV DECREASED GLUCOSE; Start 02/17/19 at 11:30 Glucagon (Glucagen) 1 mg Q15M PRN IM DECREASED GLUCOSE; Start 02/17/19 at 11:30 Glucose (Glutose) 15 gm Q15M PRN BUCCAL DECREASED GLUCOSE; Start 02/17/19 at 11:30 Allergies: Coded Allergies: No Known Allergies (Unverified Allergy, Mild, 02/16/19) Past Surgical History reviewed Past Surgical Hx: other Social History reviewed Smoking Status: Never smoker INGE SINGER NP February 17, 2019 12:53
[2019-02-17] MEDS: DAKINS 0.0125%(1/40) 473 ML SOLUTION TP SCH (14:30)
--- NOTE | 2019-02-17 18:40 | CONS ---
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 Wound cultures were obtained for the left dorsal foot with mild seropurulent drainage. Recommend to continue with IV abx per ID recommendations. Non weight bearing to left lower extremity. Continue to offload heels with pillows. Tight glycemic control. Continue with daily dressing changes. Nursing recommendations provided. Patient would benefit from diabetes education. Consultation Date/Type/Reason Admit Date/Time Date/Time of Note DATE: 02/17/19 TIME: 18:27 Hx of Present Illness 54 y/o diabetic F patient presents to the floor with hx of left foot ulceration along with charcot neuroarthropathy. Patient was admitted to the hospital for hypergylcemia and episode of seizures. Per the daughter patient has left the SNF AMA and has been home for 1 month without receiving home health and has not followed up in wound care clinic. Patient denies pain to the foot and reports mild drainage from the wound site. Denies additional constitutional symptoms. ROS negative except for HPI Past Medical History DM2 with peripheral neuropathy, charcot neuroarthropathy, hx of osteomyelitis Home Meds Active Scripts Insulin Glargine,Hum.rec.anlog (Basaglar Kwikpen U-100) 100 Unit/1 Ml Insuln.pen, 19 UNIT SC QHS for 30 Days, #6 EA 1 Refill Prov:SANCHEZ ANDERSON MD 01/14/19 Insulin Aspart* (Novolog Insulin Pen*) 100 Unit/Ml Soln, 6 UNIT SC WITH MEALS for 30 Days, #5 EA Prov:SANCHEZ ANDERSON MD 01/14/19 Lisinopril* (Lisinopril*) 20 Mg Tablet, 20 MG PO BID for 30 Days, #60 TAB Prov:SANCHEZ ANDERSON MD 01/14/19 Reported Medications Ondansetron Hcl* (Zofran*) 4 Mg Tab, 4 MG PO Q6H PRN for NAUSEA AND OR VOMITING, TAB 02/16/19 Vancomycin Hcl (Vancomycin Hcl Oral) 125 Mg Capsule, 125 MG PO Q6, CAP 02/16/19 Discontinued Reported Medications Ondansetron Hcl* (Zofran*) 4 Mg Tablet, 4 MG PO Q6H PRN for NAUSEA AND OR VOMITING, TAB 11/12/18 Polyethylene Glycol* (Miralax*) 17 Gm Powd.pack, 17 GM PO BID, #60 PACKET 11/12/18 Ascorbic Acid (Vitamin C) 500 Mg Tab, 500 MG PO DAILY, TAB 11/12/18 Zinc Sulfate* (Zinc Sulfate*) 220 Mg Cap, 220 MG PO DAILY, CAP 11/12/18 Famotidine* (Pepcid*) 20 Mg Tablet, 20 MG PO DAILY, #30 TAB 11/12/18 Amlodipine Besylate* (Amlodipine Besylate*) 10 Mg Tablet, 10 MG PO DAILY, #30 TAB 10/05/18 Discontinued Scripts Lancets (ACCU-CHEK) 1 Each Each, EACH MC, #1 Prov:SANCHEZ ANDERSON MD 01/14/19 Metronidazole* (Metronidazole*) 500 Mg Tablet, 500 MG PO Q6 for 10 Days, #40 TAB Prov:SANCHEZ ANDERSON MD 01/14/19 [place], Insulin Disposable (Fidelia Pen Needle) 1 Each Dis.needle, EACH ACHS A, #120 Prov:SANCHEZ ANDERSON MD 01/14/19 Lancets (Blood Lancets) 1 Each Each, EACH ACHS A, #120 Prov:SANCHEZ ANDERSON MD 01/14/19 Lactobacillus Rhamnosus GG (Culturelle) 1 Each Capsule, 1 CAP PO WITH MEALS for 30 Days, #90 CAP Prov:SANCHEZ ANDERSON MD 01/14/19 Gentamicin Sulfate* (Gentamicin Sulfate* Cream) 0.1% - 30 Gm Cream.gm., 1 APPLIC TOP TID for 30 Days, #1 TUB 6 Refills Prov:SANCHEZ ANDERSON MD 01/14/19 Bupropion Hcl (Bupropion Hcl SR) 150 Mg Tablet.sa, 150 MG PO BID for 11 Days Prov:ERNESTINE KELLOGG MD 10/27/18 Carvedilol* (Carvedilol*) 12.5 Mg Tablet, 12.5 MG PO BID for 14 Days, TAB Prov:ERNESTINE KELLOGG MD 10/27/18 Montelukast Sodium* (Montelukast Sodium*) 10 Mg Tablet, 10 MG PO HS for 30 Days, #30 TAB 6 Refills Prov:ERNESTINE KELLOGG MD 10/27/18 Aspirin (Aspirin) 81 Mg Chew, 81 MG PO DAILY for 30 Days, #30 TAB 6 Refills Prov:SANCHEZ ANDERSON MD 08/26/18 Hydralazine Hcl* (Apresoline*) 50 Mg Tab, 75 MG PO TID for 30 Days, #90 TAB 6 Refills Prov:SANCHEZ ANDERSON MD 08/26/18 Atorvastatin* (Atorvastatin*) 40 Mg Tablet, 40 MG PO HS for 30 Days, #30 TAB 6 Refills Prov:SANCHEZ ANDERSON MD 08/26/18 Clopidogrel Bisulfate (Clopidogrel) 75 Mg Tablet, 75 MG PO DAILY for 30 Days, #30 TAB 6 Refills Prov:SANCHEZ ANDERSON MD 08/26/18 Medications Current Medications Ondansetron HCl (Zofran Inj) 4 mg Q6H PRN IV NAUSEA AND/OR VOMITING; Start 02/16/19 at 15:30 Lorazepam (Ativan) 2 mg Q6H PRN IV seizure or agitation; Start 02/16/19 at 15:30 Heparin Sodium (Porcine) (Heparin (5000 Units/1ml)) 5,000 unit BID SC Last administered on 02/17/19at 10:05; Admin Dose 5,000 UNIT; Start 02/16/19 at 21:00 Hydralazine HCl (Apresoline) 10 mg Q6H PRN IV sbp>160mmhg Last administered on 02/17/19at 10:11; Admin Dose 10 MG; Start 02/16/19 at 16:00 Metoprolol Tartrate (Lopressor) 25 mg BID PO Last administered on 02/17/19at 10:52; Admin Dose 25 MG; Start 02/17/19 at 00:30 Nifedipine (Procardia Xl) 30 mg DAILY PO Last administered on 02/17/19at 09:58; Admin Dose 30 MG; Start 02/17/19 at 09:00 Piperacillin Sod/ Tazobactam Sod 50 ml @ 100 mls/hr Q8 IVPB Last administered on 02/17/19at 12:39; Admin Dose 100 MLS/HR; Start 02/17/19 at 13:00 Diagnostic Test (Pha) (Accu-Chek) 1 ea 02 XX ; Start 02/18/19 at 02:00 Insulin Glargine (Lantus) 15 units DAILY@0800 SC ; Start 02/18/19 at 08:00 Insulin Aspart (Novolog Insulin Pen) 5 unit WITH MEALS SC Last administered on 02/17/19at 18:20; Admin Dose 5 UNIT; Start 02/17/19 at 11:50 Insulin Aspart (Novolog Insulin Pen) NOVOLOG *MILD* ALGORITHM WITH MEALS BEDTIME SC Last administered on 02/17/19at 12:31; Admin Dose 1 UNIT; Start 02/17/19 at 11:50 Miscellaneous Information 1 ea NOTE XX ; Start 02/17/19 at 11:30 Glucose (Glutose) 15 gm Q15M PRN PO DECREASED GLUCOSE; Start 02/17/19 at 11:30 Glucose (Glutose) 22.5 gm Q15M PRN PO DECREASED GLUCOSE; Start 02/17/19 at 11:30 Dextrose (D50w Syringe) 25 ml Q15M PRN IV DECREASED GLUCOSE; Start 02/17/19 at 11:30 Dextrose (D50w Syringe) 50 ml Q15M PRN IV DECREASED GLUCOSE; Start 02/17/19 at 11:30 Glucagon (Glucagen) 1 mg Q15M PRN IM DECREASED GLUCOSE; Start 02/17/19 at 11:30 Glucose (Glutose) 15 gm Q15M PRN BUCCAL DECREASED GLUCOSE; Start 02/17/19 at 11:30 Sodium Hypochlorite (Dakins Diluted (1/40)) 1 applic DAILY TP Last administered on 02/17/19at 14:30; Admin Dose 1 APPLIC; Start 02/17/19 at 14:30 Famotidine (Pepcid) 20 mg DAILY PO ; Start 02/18/19 at 09:00 Allergies: Coded Allergies: No Known Allergies (Unverified Allergy, Mild, 02/16/19) Past Surgical History previous debridements and pinning of left foot. Past Surgical Hx: other Family History Significant Family History: no pertinent family hx Social History Smoking Status: Never smoker Exam/Review of Systems Exam Vitals Vital Signs Date Temp Pulse Resp B/P (MAP) Pulse Ox O2 O2 Flow FiO2 Time Delivery Rate 02/17/19 66 16:25 02/17/19 98.2 18 132/75 96 Nasal 15:13 (94) Cannula 02/16/19 2.0 15:15 Intake and Output 02/16/19 02/16/19 02/17/19 1515:00 23:00 07:00 OutputOutput Total 1450 ml BalanceBalance -1450 ml Exam Pedal pulses weakly palpable Popliteal pulses palpable Left foot midfoot joint instability Absent protective sensations Left dorsal foot with epithelialized skin graft there is focal open lesion which probes to bone and scant seropurulent drainage appreciated 0.4 x 0.4 x 0.4cm Left dorsal proximal midfoot with eschar formation and medial 1st MPJ region Left 4th digit lateral aspect ulcer fibrotic dry wound base 1 x 0.5 x 0.2cm unable to probe to bone. Left lateral 5th metatarsal region with fibrotic ulceration 1.5 x 1 x 0.4cm unable to probe to bone Left posterior heel ulcer fibrotic and granular 1.5 x 1.5 x 0.3cm unable to probe to bone No proximal streaking No pain on palpation to ulceration sites. Results Result Diagram: 02/16/19 0946 02/17/19 0539 Results 24hrs Laboratory Tests Test 02/16/19 18:34 02/16/19 20:05 02/16/19 21:49 02/16/19 22:21 Bedside Glucose 123 120 120 Creatine Kinase 79 Creatine Kinase 1.0 Index Creatinine Kinase MB 0.76 (Mass) Troponin I 0.055 Test 02/17/19 00:22 02/17/19 01:57 02/17/19 02:56 02/17/19 04:18 Bedside Glucose 157 104 127 86 Test 02/17/19 05:31 02/17/19 05:39 02/17/19 06:54 02/17/19 09:13 Bedside Glucose 100 116 126 Erythrocyte 72 H Sedimentation Rate Sodium Level 144 Potassium Level 3.9 Chloride Level 113 H Carbon Dioxide Level 29 Anion Gap 2 #L Blood Urea Nitrogen 33 #H Creatinine 1.41 H Est Glomerular 39 L Filtrat Rate mL/min Glucose Level 114 # Hemoglobin A1c 5.4 Calcium Level 8.9 Phosphorus Level 3.6 Magnesium Level 2.0 C-Reactive Protein 1.4 H Triglycerides Level 201 H Cholesterol Level 242 H LDL Cholesterol, 160 Calculated HDL Cholesterol 42 Cholesterol/HDL 5.7 Ratio Procalcitonin 0.19 H Thyroid Stimulating 0.555 Hormone (TSH) Test 02/17/19 11:30 02/17/19 12:00 02/17/19 18:15 Hemoglobin A1c 11.8 H Bedside Glucose 142 113 Medications Medication Current Medications Ondansetron HCl (Zofran Inj) 4 mg Q6H PRN IV NAUSEA AND/OR VOMITING; Start 02/16/19 at 15:30 Lorazepam (Ativan) 2 mg Q6H PRN IV seizure or agitation; Start 02/16/19 at 15:30 Heparin Sodium (Porcine) (Heparin (5000 Units/1ml)) 5,000 unit BID SC Last administered on 02/17/19at 10:05; Admin Dose 5,000 UNIT; Start 02/16/19 at 21:00 Hydralazine HCl (Apresoline) 10 mg Q6H PRN IV sbp>160mmhg Last administered on 02/17/19at 10:11; Admin Dose 10 MG; Start 02/16/19 at 16:00 Metoprolol Tartrate (Lopressor) 25 mg BID PO Last administered on 02/17/19at 10:52; Admin Dose 25 MG; Start 02/17/19 at 00:30 Nifedipine (Procardia Xl) 30 mg DAILY PO Last administered on 02/17/19at 09:58; Admin Dose 30 MG; Start 02/17/19 at 09:00 Piperacillin Sod/ Tazobactam Sod 50 ml @ 100 mls/hr Q8 IVPB Last administered on 02/17/19at 12:39; Admin Dose 100 MLS/HR; Start 02/17/19 at 13:00 Diagnostic Test (Pha) (Accu-Chek) 1 ea 02 XX ; Start 02/18/19 at 02:00 Insulin Glargine (Lantus) 15 units DAILY@0800 SC ; Start 02/18/19 at 08:00 Insulin Aspart (Novolog Insulin Pen) 5 unit WITH MEALS SC Last administered on 02/17/19at 18:20; Admin Dose 5 UNIT; Start 02/17/19 at 11:50 Insulin Aspart (Novolog Insulin Pen) NOVOLOG *MILD* ALGORITHM WITH MEALS BEDTIME SC Last administered on 02/17/19at 12:31; Admin Dose 1 UNIT; Start 02/17/19 at 11:50 Miscellaneous Information 1 ea NOTE XX ; Start 02/17/19 at 11:30 Glucose (Glutose) 15 gm Q15M PRN PO DECREASED GLUCOSE; Start 02/17/19 at 11:30 Glucose (Glutose) 22.5 gm Q15M PRN PO DECREASED GLUCOSE; Start 02/17/19 at 11:30 Dextrose (D50w Syringe) 25 ml Q15M PRN IV DECREASED GLUCOSE; Start 02/17/19 at 11:30 Dextrose (D50w Syringe) 50 ml Q15M PRN IV DECREASED GLUCOSE; Start 02/17/19 at 11:30 Glucagon (Glucagen) 1 mg Q15M PRN IM DECREASED GLUCOSE; Start 02/17/19 at 11:30 Glucose (Glutose) 15 gm Q15M PRN BUCCAL DECREASED GLUCOSE; Start 02/17/19 at 11:30 Sodium Hypochlorite (Dakins Diluted ()) 1 applic DAILY TP Last administered on 02/17/19at 14:30; Admin Dose 1 APPLIC; Start 02/17/19 at 14:30 Famotidine (Pepcid) 20 mg DAILY PO ; Start 02/18/19 at 09:00 SHAILA FRIAS DPM February 17, 2019 18:40
[2019-02-18] VITALS (11 sets, daily range): BP systolic 91–160; BP diastolic 47–80; PULSE 62–88; RESP 17–19
[2019-02-18] MEDS: ACCU-CHEK XX SCH (01:59)
[2019-02-18] MEDS: PIPER-TAZO 2.25 GM (PMX) 50 ML IVPB SCH ×3 (05:56→21:08)
[2019-02-18] MEDS: FAMOTIDINE 20 MG TAB PO SCH (08:07)
[2019-02-18] MEDS: NIFEdipine (XL) 30 MG TAB PO SCH (08:07)
[2019-02-18] MEDS: METOPROLOL 25 MG TAB PO SCH ×2 (08:08→21:04)
[2019-02-18] MEDS: HEPARIN 5,000 UNIT/1 ML VIAL SC SCH ×2 (08:09→21:22)
[2019-02-18] MEDS: INSULIN ASPART [NOVOLOG] 3 ML PEN SC SCH ×7 (08:09→21:23)
[2019-02-18] MEDS: DAKINS 0.0125%(1/40) 473 ML SOLUTION TP SCH (08:12)
[2019-02-18] MEDS: INSULIN GLARGINE [LANTus] (100 UNITS/ML) SYG SC SCH (08:38)
--- NOTE | 2019-02-18 12:18 | PN ---
Date/Time of Note Date/Time of Note DATE: 02/18/19 TIME: 12:00 Assessment/Plan VTE Prophylaxis Risk score (from Nsg)>0 risk: 3 Pharmacological prophylaxis: heparin Lines/Catheters IV Catheter Type (from Nrsg): Saline Lock Urinary Cath still in place: Yes Reason Cath still needed: other (indicate) Assessment/Plan Hospital Course assessment and plan: acute encephalopathy, likely toxic metabolic -MRI of the brain demonstrates subtle patchy diffusion abnormality of the left temporal lobe associated with mild cortical edema which can be consistent with post ictal changes of the left temporal lobe. no acute ischemia -still with intermittent confusion -continue inhouse monitoring SIRS: -transient fevers now resolved, blood cultures negative -from foot infection ? New onset Isolated seizure episode 2/ #2 -no further seizures, f/u EEG Hyperosmolar non ketotic hyperglycemic state -resolved DM2 : -family reports non compliance, repeat a1c 11.8, more likely true picture -resumed lantus / novolog regimen with fair control HTN s/p Hypertensive emergency -improved, now started on oral meds -plan to switch hydralazine to ACEi or ARB once renal function stabilizes Hx of c-diff colitis Rickey on CKD -improved Chronic L foot wound with persistent chronic osteomyelitis -s/p treatment completed about 2 weeks ago -wound is still oozing, podiatry recommends abx per ID and cultures -no surgical intervention for now, -wound cultures pending hyperkalemia resolved dyslipidemia - statin Plan: -continue current regimen, will need repeat wound cultures for discharge abx -high probability patient may not have been compliant with abx therapy. May need to consider amputation if not improving despite abx therapy. -still confused with improved lethargy, f/u EEG and PT recommendations -seizure precautions, no antiseizure meds for now -continue inpatient monitoring d/t mental status -med surg downgrade Result Diagram: 02/16/19 0946 02/18/19 0726 Results 24hrs Laboratory Tests Test 02/17/19 18:15 02/17/19 20:37 02/18/19 07:26 02/18/19 07:44 Bedside Glucose 113 96 172 Sodium Level 140 Potassium Level 3.7 Chloride Level 109 Carbon Dioxide Level 27 Anion Gap 4 L Blood Urea Nitrogen 27 H Creatinine 1.34 H Est Glomerular 41 L Filtrat Rate mL/min Glucose Level 153 Calcium Level 8.3 L Phosphorus Level 4.0 Magnesium Level 1.9 Subjective 24 Hr Interval Summary Free Text/Dictation confused, but more alert Exam/Review of Systems Exam Vitals Vital Signs Date Temp Pulse Resp B/P (MAP) Pulse Ox O2 O2 Flow FiO2 Time Delivery Rate 02/18/19 98.1 69 19 149/72 97 11:26 (97) 02/17/19 Nasal 15:13 Cannula 02/16/19 2.0 15:15 Intake and Output 02/17/19 02/17/19 02/18/19 1515:00 23:00 07:00 IntakeIntake Total 2900 ml 950 ml OutputOutput Total 850 ml BalanceBalance 2900 ml 100 ml Exam Constitutional: alert, confused Head: atraumatic, normocephalic Respiratory: clear to auscultation, diminished Cardiovascular: regular rate and rhythm Gastrointestinal: S/ NT / ND / +BS Extremities: no edema, moving all extremities Results Results 24hrs Laboratory Tests Test 02/17/19 18:15 02/17/19 20:37 02/18/19 07:26 02/18/19 07:44 Bedside Glucose 113 96 172 Sodium Level 140 Potassium Level 3.7 Chloride Level 109 Carbon Dioxide Level 27 Anion Gap 4 L Blood Urea Nitrogen 27 H Creatinine 1.34 H Est Glomerular 41 L Filtrat Rate mL/min Glucose Level 153 Calcium Level 8.3 L Phosphorus Level 4.0 Magnesium Level 1.9 Medications Medication Current Medications Ondansetron HCl (Zofran Inj) 4 mg Q6H PRN IV NAUSEA AND/OR VOMITING; Start 02/16/19 at 15:30 Lorazepam (Ativan) 2 mg Q6H PRN IV seizure or agitation; Start 02/16/19 at 15:30 Heparin Sodium (Porcine) (Heparin (5000 Units/1ml)) 5,000 unit BID SC Last administered on 02/18/19at 08:09; Admin Dose 5,000 UNIT; Start 02/16/19 at 21:00 Hydralazine HCl (Apresoline) 10 mg Q6H PRN IV sbp>160mmhg Last administered on 02/17/19at 10:11; Admin Dose 10 MG; Start 02/16/19 at 16:00 Metoprolol Tartrate (Lopressor) 25 mg BID PO Last administered on 02/18/19at 08:08; Admin Dose 25 MG; Start 02/17/19 at 00:30 Nifedipine (Procardia Xl) 30 mg DAILY PO Last administered on 02/18/19at 08:07; Admin Dose 30 MG; Start 02/17/19 at 09:00 Piperacillin Sod/ Tazobactam Sod 50 ml @ 100 mls/hr Q8 IVPB Last administered on 02/18/19at 05:56; Admin Dose 100 MLS/HR; Start 02/17/19 at 13:00 Diagnostic Test (Pha) (Accu-Chek) 1 ea 02 XX ; Start 02/18/19 at 02:00 Insulin Glargine (Lantus) 15 units DAILY@0800 SC Last administered on 02/18/19 08:38; Admin Dose 15 UNITS; Start 02/18/19 at 08:00 Insulin Aspart (Novolog Insulin Pen) 5 unit WITH MEALS SC Last administered on 02/18/19at 11:33; Admin Dose 5 UNIT; Start 02/17/19 at 11:50 Insulin Aspart (Novolog Insulin Pen) NOVOLOG *MILD* ALGORITHM WITH MEALS BEDTIME SC Last administered on 02/18/19at 11:33; Admin Dose 3 UNIT; Start 02/17/19 at 11:50 Miscellaneous Information 1 ea NOTE XX ; Start 02/17/19 at 11:30 Glucose (Glutose) 15 gm Q15M PRN PO DECREASED GLUCOSE; Start 02/17/19 at 11:30 Glucose (Glutose) 22.5 gm Q15M PRN PO DECREASED GLUCOSE; Start 02/17/19 at 11:30 Dextrose (D50w Syringe) 25 ml Q15M PRN IV DECREASED GLUCOSE; Start 02/17/19 at 11:30 Dextrose (D50w Syringe) 50 ml Q15M PRN IV DECREASED GLUCOSE; Start 02/17/19 at 11:30 Glucagon (Glucagen) 1 mg Q15M PRN IM DECREASED GLUCOSE; Start 02/17/19 at 11:30 Glucose (Glutose) 15 gm Q15M PRN BUCCAL DECREASED GLUCOSE; Start 02/17/19 at 11:30 Sodium Hypochlorite (Dakins Diluted (/40)) 1 applic DAILY TP Last administered on 02/18/19at 08:12; Admin Dose 1 APPLIC; Start 02/17/19 at 14:30 Famotidine (Pepcid) 20 mg DAILY PO Last administered on 02/18/19at 08:07; Admin Dose 20 MG; Start 02/18/19 at 09:00 ERICKA CATHERINE February 18, 2019 12:13
[2019-02-18] MEDS: GENTAMICIN 0.1% 15 GM OINT TOP SCH ×2 (13:00→21:03)
--- NOTE | 2019-02-18 16:47 | CONS ---
Assessment/Plan Assessment/Plan Hospital Course 54 yo F with multiple comorbidities who presents for evaluation of seizures, her first reported of life... for which neurology is consulted. The clinical picture is most consistent with a provoked seizure, in the context of severe hyperglycemia. New onset epilepsy is less likely. MRI brain is without acute intracranial pathology, though notable for L temporal lobe edema, likely a sequelae of recent seizures. EEG is without epileptiform activity. P: Ok to defer AED therapy for now Ativan IV PRN prolonged seizure or for cluster Cont medical management per primary PT/OT as necessary Will follow clinically, to recommend neurologic studies, as necessary Consultation Date/Type/Reason Admit Date/Time February 16, 2019 at 11:30 Type of Consult Neurology Reason for Consultation new onset seizures Requesting Provider: ERICKA CATHERINE Date/Time of Note DATE: 02/18/19 TIME: 16:47 24 HR Interval Summary Free Text/Dictation Continues acute care. No further seizure events reported. S/p MRI brain, EEG. Exam Vital Signs Vitals Vital Signs Date Temp Pulse Resp B/P (MAP) Pulse Ox O2 O2 Flow FiO2 Time Delivery Rate 02/18/19 98.1 62 19 155/73 96 15:20 (100) 02/17/19 Nasal 15:13 Cannula 02/16/19 2.0 15:15 Intake and Output 02/17/19 02/17/19 02/18/19 1515:00 23:00 07:00 IntakeIntake Total 2900 ml 950 ml OutputOutput Total 850 ml BalanceBalance 2900 ml 100 ml Exam PE: Gen Appearance: No Apparent Distress HEENT: Normocephalic Cardiovascular: Regular rate Lungs: Clear bilaterally Abdomen: Soft Extremities: Dry; L foot dressing NE: The patient was alert and oriented to self and hospital. Language was normal. Fund of knowledge was limited. Pupils were equal and reactive to light. There was no afferent pupillary defect. Visual isabel were normal. Funduscopic examination was limited. Extra-ocular movements were full. Ptosis was absent. There was no nystagmus. Facial sensation was normal. Face was symmetric with normal strength. Hearing was intact. Palate movements were normal. Neck strength was normal. There was normal tongue bulk and speed of movement. Tone was normal. Muscle bulk was normal. I did not see fasciculations. Arms and legs were strong. Vibration sensation was normal. Temperature and pinprick sensation was normal. Rapid alternating movements were normal. There was no dysmetria. There was no intention tremor. Gait was deferred due to bedrest. Arm and leg reflexes were 2+ and symmetric. Álvarez's sign was absent. Plantar responses were flexor. INGE SINGER NP February 18, 2019 16:47 MUKUL JOHNSON February 19, 2019 06:33
--- NOTE | 2019-02-18 19:04 | PN ---
DATE: 02/18/2019 REQUESTING PHYSICIAN: Ericka Catherine MD Thank you Dr. Catherine for this consultation. HISTORY OF PRESENT ILLNESS: This is a well-nourished, well-developed, middle-aged woman, well known to our service from multiple previous admissions where she was treated for osteomyelitis. The patien margarito was brought by ambulance with a new onset of seizures. She came from home. The seizures were sarah c-clonic witnessed by both family and EMS. VITAL SIGNS: Temperature T-max was 101.1 two days ago, T-current 98.1, pulse 62, respirations 19, bl ood pressure 155/73, saturation 96% on room air. LABORATORY DATA: WBC on admission 12.7, H and H 10.7 and 34.6, platelets 351, neutrophils 92.5, ESR 72. Sodium on admission 134, potassium 5.8, glucose 884, BUN 53, creatinine 2.12. MICROBIOLOGY: A urinalysis was negative for nitrite, leukocyte esterase. DIAGNOSTICS: CT of the brain revealed no evidence of acute intracranial pathology. Chest x-ray reve aled no evidence for acute cardiopulmonary disease. The patient had MRI of the left ankle and foot t hat revealed postoperative changes in the midfoot and forefoot, prior resection of this distal aspect of the fifth metatarsal and base of the 5th proximal phalanx. Edema and foci of pains, infiltrative marrow signal at the proximal fifth phalanx and middle phalanx, suspicious for osteomyelitis. Pleas e see full report in the chart. A brain MRI revealed subtle patchy diffusion abnormality of the left temporal lobe, bilateral ethmoid and maxillary mucosal thickening. Please see full report in the art. The patient was started on Zosyn. SHE IS NOT ALLERGIC TO ANY MEDICATIONS. She was seen by neurology , pending EEG. She is being seen by Dr. Jeff in podiatry consultation, who obtained wound cultu res of the left dorsal foot with results pending. Microbiology, blood cultures pending since admissi on. PAST MEDICAL HISTORY: Significant for left diabetic foot ulceration with chronic osteomyelitis requi ring multiple debridements, Charcot neuropathy, diabetes, peripheral arterial disease, acute on chron ic kidney disease, COPD, hypercoagulable state, history of left upper extremity thrombus, depression. SOCIAL HISTORY: The patient came from home. REVIEW OF SYSTEMS: At the time of examination, all negative. PHYSICAL EXAMINATION: GENERAL: This is a well-nourished, well-developed, middle-aged woman who is alert, in no distress. HEENT: Head atraumatic, normocephalic. NECK: Supple. CHEST: Rise symmetrical. Breath sounds clear. HEART: S1, S2. ABDOMEN: Soft, bowel sounds present. EXTREMITIES: With left foot dressing intact. DIAGNOSTIC IMPRESSION: This is a 54-year-old woman with numerous medical problems admitted with new onset of seizures, a patient with chronic left diabetic foot ulceration. Previous culture in 12/2018 grew multi-drug resistant Pseudomonas aeruginosa, a repeat wound culture pending. The patient is cu rrently on Zosyn. She also has acute on chronic kidney disease, but creatinine is slowly improving. We will keep her on Zosyn until we get final cultures. Await for EEG, follow podiatry recommendatio ns. Discussed with Dr. Morrison who is covering for Dr. Delgado. Dictated By: KAYODE WESLEY WIRELESS ENGINEER for AARTI DELGADO MD NI/NTS Conf#: [id number] DID#: [id number] CC: ERICKA CATHERINE MD;*EndCC*
[2019-02-19] VITALS (8 sets, daily range): BP systolic 135–179; BP diastolic 66–87; PULSE 68–89; RESP 18–19
[2019-02-19] MEDS: hydrALAzine 20 MG INJ IV PRN ×2 (00:13→11:57)
[2019-02-19] MEDS: ACCU-CHEK XX SCH (02:30)
[2019-02-19] MEDS ORDERED: INSULIN ASPART [NOVOLOG] 3 ML PEN SC ONE (03:00)
[2019-02-19] MEDS ORDERED: ACCU-CHEK XX ONE (05:00)
[2019-02-19] MEDS: PIPER-TAZO 2.25 GM (PMX) 50 ML IVPB SCH ×3 (05:37→22:18)
--- NOTE | 2019-02-19 07:24 | EEG ---
EEG NOTE Report Details DATE OF TEST: 02/18/19 HISTORY: The patient is a 54-year-old F who presents with a seizure. This EEG is requested to evaluate for an epileptic disorder. SEDATION: None. CONDITIONS OF RECORDING: This EEG was recorded digitally on the [employer] machine, using the International 10-20 System of electrodes plus anterior temporals and [place]. STATES SAMPLED: Drowsiness and Sleep. FINDINGS: During wakefulness, a well-formed posterior dominant rhythm is absent. The normal [id number] frequency-amplitude gradient was absent. The background is predominated by polymorphic theta and delta activity. Photic stimulation does not elicit any definite driving responses or epileptiform discharges. Hyperventilation was not performed. The patient passed into sleep, reaching stage II, characterized by normal and symmetrical vertex waves and spindles. No asymmetries, focal abnormalities or epileptiform discharges were seen. IMPRESSION: Abnormal electroencephalogram due to: diffuse slowing. COMMENT: The slowing of the background indicates diffuse cortical dysfunction of nonspeci fic etiology. MUKUL JOHNSON February 19, 2019 07:24
[2019-02-19] MEDS: INSULIN ASPART [NOVOLOG] 3 ML PEN SC SCH ×7 (07:37→21:00)
[2019-02-19] MEDS: INSULIN GLARGINE [LANTus] (100 UNITS/ML) SYG SC SCH (07:45)
[2019-02-19] MEDS: GENTAMICIN 0.1% 15 GM OINT TOP SCH ×3 (08:53→21:16)
[2019-02-19] MEDS: NIFEdipine (XL) 30 MG TAB PO SCH (08:54)
[2019-02-19] MEDS: METOPROLOL 25 MG TAB PO SCH ×2 (08:54→21:12)
[2019-02-19] MEDS: FAMOTIDINE 20 MG TAB PO SCH (08:54)
[2019-02-19] MEDS: DAKINS 0.0125%(1/40) 473 ML SOLUTION TP SCH (08:55)
[2019-02-19] MEDS: HEPARIN 5,000 UNIT/1 ML VIAL SC SCH ×2 (09:05→21:00)
--- NOTE | 2019-02-19 13:42 | CONS ---
Assessment/Plan Assessment/Plan Hospital Course 54 yo F with multiple comorbidities who presents for evaluation of seizures, her first reported of life... for which neurology is consulted. The clinical picture is most consistent with a provoked seizure, in the context of severe hyperglycemia. New onset epilepsy is less likely. MRI brain is without acute intracranial pathology, though notable for L temporal lobe edema, likely a sequelae of recent seizures. EEG is without epileptiform activity. P: Ok to defer AED therapy for now Ativan IV PRN prolonged seizure or for cluster Cont medical management per primary PT/OT as necessary Will follow clinically, to recommend neurologic studies, as necessary Consultation Date/Type/Reason Admit Date/Time February 16, 2019 at 11:30 Type of Consult Neurology Reason for Consultation new onset seizures Requesting Provider: ERICKA CATHERINE Date/Time of Note DATE: 02/19/19 TIME: 13:42 24 HR Interval Summary Free Text/Dictation Continues acute care. Pt is without complaints at this time. Exam Vital Signs Vitals Vital Signs Date Temp Pulse Resp B/P (MAP) Pulse Ox O2 O2 Flow FiO2 Time Delivery Rate 02/19/19 98.4 89 18 179/77 96 11:21 (111) 02/17/19 Nasal 15:13 Cannula 02/16/19 2.0 15:15 Intake and Output 02/18/19 02/18/19 02/19/19 1515:00 23:00 07:00 IntakeIntake Total 800 ml OutputOutput Total 900 ml BalanceBalance -100 ml Exam PE: Gen Appearance: No Apparent Distress HEENT: Normocephalic Cardiovascular: Regular rate Lungs: Clear bilaterally Abdomen: Soft Extremities: Dry; L foot dressing NE: The patient was alert and oriented to self and hospital. Language was normal. Fund of knowledge was limited. Pupils were equal and reactive to light. There was no afferent pupillary defect. Visual isabel were normal. Funduscopic examination was limited. Extra-ocular movements were full. Ptosis was absent. There was no nystagmus. Facial sensation was normal. Face was symmetric with normal strength. Hearing was intact. Palate movements were normal. Neck strength was normal. There was normal tongue bulk and speed of movement. Tone was normal. Muscle bulk was normal. I did not see fasciculations. Arms and legs were strong. Vibration sensation was normal. Temperature and pinprick sensation was normal. Rapid alternating movements were normal. There was no dysmetria. There was no intention tremor. Gait was deferred due to bedrest. Arm and leg reflexes were 2+ and symmetric. Álvarez's sign was absent. Plantar responses were flexor. INGE SINGER NP February 19, 2019 13:42
--- NOTE | 2019-02-19 15:33 | CONS ---
Assessment/Plan Assessment/Plan Hospital Course (Demo Recall) Patient is alert feels good denies pain no fevers overnight WBC 6.7 platelets 260 no shift no bands BUN 29 creatinine 1.27 Microbiology: Left foot wound culture grew staph aureus and enterococcus species Antimicrobials: Zosyn PHYSICAL EXAMINATION: GENERAL: This is a well-nourished, well-developed, middle-aged woman who is alert, in no distress. HEENT: Head atraumatic, normocephalic. NECK: Supple. CHEST: Rise symmetrical. Breath sounds clear. HEART: S1, S2. ABDOMEN: Soft, bowel sounds present. EXTREMITIES: With left foot dressing intact. Assessment: 1. Status post new onset seizure 2. Left foot diabetic ulceration with chronic osteomyelitis 3. Diabetes 4. Acute on chronic kidney disease Plan: Patient remains stable neurology on case, continue antibiotics await for final cultures follow podiatry recommendations Consultation Date/Type/Reason Admit Date/Time February 16, 2019 at 11:30 Initial Consult Date Type of Consult id Requesting Provider: ERICKA CATHERINE Date/Time of Note DATE: 02/19/19 TIME: 15:32 Exam/Review of Systems Exam Vitals Vital Signs Date Temp Pulse Resp B/P (MAP) Pulse Ox O2 O2 Flow FiO2 Time Delivery Rate 02/19/19 98.4 89 18 179/77 96 11:21 (111) 02/17/19 Nasal 15:13 Cannula 02/16/19 2.0 15:15 Intake and Output 02/18/19 02/18/19 02/19/19 1515:00 23:00 07:00 IntakeIntake Total 800 ml OutputOutput Total 900 ml BalanceBalance -100 ml Results Result Diagram: 02/19/19 0622 02/19/19 0622 Results 24hrs Laboratory Tests Test 02/18/19 17:09 02/18/19 21:05 02/19/19 02:28 02/19/19 05:38 Bedside Glucose 203 221 H 304 H 134 Test 02/19/19 06:22 02/19/19 07:37 02/19/19 11:30 White Blood Count 6.7 # Red Blood Count 3.27 L Hemoglobin 8.9 L Hematocrit 27.9 L Mean Corpuscular 85.3 Volume Mean Corpuscular 27.2 L Hemoglobin Mean Corpuscular 31.9 L Hemoglobin Concent Red Cell 13.2 Distribution Width Platelet Count 260 # Mean Platelet Volume 10.7 H Immature 0.100 Granulocytes % Neutrophils % 66.0 Lymphocytes % 24.9 Monocytes % 6.7 Eosinophils % 1.9 Basophils % 0.4 Nucleated Red Blood 0.0 Cells % Immature 0.010 Granulocytes # Neutrophils # 4.4 Lymphocytes # 1.7 Monocytes # 0.5 Eosinophils # 0.1 Basophils # 0.0 Nucleated Red Blood 0.0 Cells # Sodium Level 137 Potassium Level 3.9 Chloride Level 107 Carbon Dioxide Level 26 Anion Gap 4 L Blood Urea Nitrogen 29 H Creatinine 1.27 H Est Glomerular 44 L Filtrat Rate mL/min Glucose Level 117 Calcium Level 8.4 Magnesium Level 1.8 Bedside Glucose 132 156 Medications Medication Current Medications Ondansetron HCl (Zofran Inj) 4 mg Q6H PRN IV NAUSEA AND/OR VOMITING; Start 02/16/19 at 15:30 Lorazepam (Ativan) 2 mg Q6H PRN IV seizure or agitation; Start 02/16/19 at 15:30 Heparin Sodium (Porcine) (Heparin (5000 Units/1ml)) 5,000 unit BID SC Last administered on 02/19/19 09:05; Admin Dose 5,000 UNIT; Start 02/16/19 at 21:00 Hydralazine HCl (Apresoline) 10 mg Q6H PRN IV sbp>160mmhg Last administered on 02/19/19at 11:57; Admin Dose 10 MG; Start 02/16/19 at 16:00 Metoprolol Tartrate (Lopressor) 25 mg BID PO Last administered on 02/19/19 08:54; Admin Dose 25 MG; Start 02/17/19 at 00:30 Nifedipine (Procardia Xl) 30 mg DAILY PO Last administered on 02/19/19 08:54; Admin Dose 30 MG; Start 02/17/19 at 09:00 Piperacillin Sod/ Tazobactam Sod 50 ml @ 100 mls/hr Q8 IVPB Last administered on 02/19/19 13:24; Admin Dose 100 MLS/HR; Start 02/17/19 at 13:00 Diagnostic Test (Pha) (Accu-Chek) 1 ea 02 XX Last administered on 02/19/19 02:30; Admin Dose 1 EA; Start 02/18/19 at 02:00 Insulin Glargine (Lantus) 15 units DAILY@0800 SC Last administered on 02/19/19 07:45; Admin Dose 15 UNITS; Start 02/18/19 at 08:00 Insulin Aspart (Novolog Insulin Pen) 5 unit WITH MEALS SC Last administered on 02/19/19 11:34; Admin Dose 5 UNIT; Start 02/17/19 at 11:50 Insulin Aspart (Novolog Insulin Pen) NOVOLOG *MILD* ALGORITHM WITH MEALS BEDTIME SC Last administered on 02/19/19 11:34; Admin Dose 1 UNIT; Start 02/17/19 at 11:50 Miscellaneous Information 1 ea NOTE XX ; Start 02/17/19 at 11:30 Glucose (Glutose) 15 gm Q15M PRN PO DECREASED GLUCOSE; Start 02/17/19 at 11:30 Glucose (Glutose) 22.5 gm Q15M PRN PO DECREASED GLUCOSE; Start 02/17/19 at 11:30 Dextrose (D50w Syringe) 25 ml Q15M PRN IV DECREASED GLUCOSE; Start 02/17/19 at 11:30 Dextrose (D50w Syringe) 50 ml Q15M PRN IV DECREASED GLUCOSE; Start 02/17/19 at 11:30 Glucagon (Glucagen) 1 mg Q15M PRN IM DECREASED GLUCOSE; Start 02/17/19 at 11:30 Glucose (Glutose) 15 gm Q15M PRN BUCCAL DECREASED GLUCOSE; Start 02/17/19 at 11:30 Sodium Hypochlorite (Dakins Diluted (1/40)) 1 applic DAILY TP Last administered on 02/19/19 08:55; Admin Dose 1 APPLIC; Start 02/17/19 at 14:30 Famotidine (Pepcid) 20 mg DAILY PO Last administered on 02/19/19 08:54; Admin Dose 20 MG; Start 02/18/19 at 09:00 Gentamicin Sulfate (Gentamicin 0.1% Oint) 1 applic TID TOP Last administered on 02/19/19 13:47; Admin Dose 1 APPLIC; Start 02/18/19 at 13:00 Hydralazine HCl (Apresoline) 25 mg BID PO Last administered on 02/19/19 08:54; Admin Dose 25 MG; Start 02/18/19 at 12:30 KAYODE WESLEY NP February 19, 2019 15:33
[2019-02-20] MEDS: hydrALAzine 20 MG INJ IV PRN (01:37)
[2019-02-20 02:00] VITALS: BP 165/79; PULSE 72; RESP 18
[2019-02-20] MEDS: ACCU-CHEK XX SCH (02:00)
[2019-02-20 04:00] VITALS: BP 135/68
[2019-02-20] MEDS: PIPER-TAZO 2.25 GM (PMX) 50 ML IVPB SCH ×3 (06:11→21:00)
[2019-02-20 07:37] VITALS: BP 151/68; PULSE 75; RESP 18
--- NOTE | 2019-02-20 08:44 | EN ---
Date/Time of Note Date/Time of Note DATE: 02/19/19 TIME: 08:36 Event Note Medicine Medicine Event Note S: confusion is improved O: Constitutional: alert, oriented, frail Head: atraumatic, normocephalic Neck: non-tender, supple Respiratory: clear to auscultation, diminished Cardiovascular: regular rate and rhythm Gastrointestinal: S/ NT / ND / +BS Extremities: LLE with bandage assessment and plan: acute encephalopathy, likely toxic metabolic -MRI of the brain demonstrates subtle patchy diffusion abnormality of the left temporal lobe associated with mild cortical edema which can be consistent with post ictal changes of the left temporal lobe. no acute ischemia -confusion has improved SIRS: -transient fevers now resolved, blood cultures negative -from foot infection ? -final foot cultures still pending New onset Isolated seizure episode 2/2 #2 -no further seizures, f/u EEG Hyperosmolar non ketotic hyperglycemic state -resolved DM2 : -family reports non compliance, repeat a1c 11.8, more likely true picture -resumed lantus / novolog regimen with fair control HTN s/p Hypertensive emergency -improved, now started on oral meds -plan to switch hydralazine to ACEi or ARB once renal function stabilizes Hx of c-diff colitis Rickey on CKD -improved Chronic L foot wound with persistent chronic osteomyelitis -s/p treatment completed about 2 weeks ago -wound is still oozing, podiatry recommends abx per ID and cultures -no surgical intervention for now, -wound cultures pending hyperkalemia resolved dyslipidemia - statin Plan: -continue current regimen, will need final repeat wound cultures for discharge abx -high probability patient may not have been compliant with abx therapy. May need to consider amputation if not improving despite abx therapy. -PT has not done gait training yet as patient is still too lethargic DC planning: PT recommends SNF, but patient wants to go home with family, family is concerned about lack of compliance and feels she may be better off in SNF. Patient is not quite ambulant yet and final wound cultures are still pending. ERICKA CATHERINE. February 20, 2019 08:44
[2019-02-20] MEDS: GENTAMICIN 0.1% 15 GM OINT TOP SCH ×3 (08:48→20:54)
[2019-02-20] MEDS: METOPROLOL 25 MG TAB PO SCH ×2 (08:49→20:50)
[2019-02-20] MEDS: NIFEdipine (XL) 30 MG TAB PO SCH (08:49)
[2019-02-20] MEDS: FAMOTIDINE 20 MG TAB PO SCH (08:49)
[2019-02-20] MEDS: HEPARIN 5,000 UNIT/1 ML VIAL SC SCH ×2 (08:50→20:52)
[2019-02-20] MEDS: INSULIN ASPART [NOVOLOG] 3 ML PEN SC SCH ×7 (08:55→20:49)
[2019-02-20] MEDS: INSULIN GLARGINE [LANTus] (100 UNITS/ML) SYG SC SCH (08:57)
[2019-02-20] MEDS: DAKINS 0.0125%(1/40) 473 ML SOLUTION TP SCH ×2 (09:00→13:38)
--- NOTE | 2019-02-20 10:30 | PN ---
Date/Time of Note Date/Time of Note DATE: 02/20/19 TIME: 10:15 Assessment/Plan VTE [place]axis [place] [facility] [place]: 2 [place] [facility] [place] No SCD contraindicated: other Pharmacological prophylaxis: other Lines/Catheters [facility] Saline Lock Urinary Cath still in place: Yes Reason Cath still needed: other (indicate) Assessment/Plan Hospital Course ERROR DOCUMENT Result Diagram: 02/20/19 0753 02/19/19 0622 Results 24hrs Laboratory Tests Test 02/19/19 11:30 02/19/19 17:27 02/19/19 21:08 02/20/19 07:53 Bedside Glucose 156 165 180 White Blood Count 5.4 Red Blood Count 3.37 L Hemoglobin 9.2 L Hematocrit 29.0 L Mean Corpuscular 86.1 Volume Mean Corpuscular 27.3 L Hemoglobin Mean Corpuscular 31.7 L Hemoglobin Concent Red Cell 13.2 Distribution Width Platelet Count 270 Mean Platelet Volume 11.2 H Immature 0.400 Granulocytes % Neutrophils % 64.9 Lymphocytes % 25.2 Monocytes % 6.7 Eosinophils % 2.4 Basophils % 0.4 Nucleated Red Blood 0.0 Cells % Immature 0.020 Granulocytes # Neutrophils # 3.5 Lymphocytes # 1.4 Monocytes # 0.4 Eosinophils # 0.1 Basophils # 0.0 Nucleated Red Blood 0.0 Cells # Test 02/20/19 08:52 Bedside Glucose 273 H Exam/Review of Systems Exam Vitals Vital Signs Date Temp Pulse Resp B/P (MAP) Pulse Ox O2 O2 Flow FiO2 Time Delivery Rate 02/20/19 98.8 75 18 151/68 98 07:37 (95) 02/19/19 Room Air 22:05 02/16/19 2.0 15:15 Intake and Output 02/19/19 02/19/19 02/20/19 1515:00 23:00 07:00 IntakeIntake Total 550 ml OutputOutput Total 700 ml BalanceBalance -150 ml Results Results 24hrs Laboratory Tests Test 02/19/19 11:30 02/19/19 17:27 02/19/19 21:08 02/20/19 07:53 Bedside Glucose 156 165 180 White Blood Count 5.4 Red Blood Count 3.37 L Hemoglobin 9.2 L Hematocrit 29.0 L Mean Corpuscular 86.1 Volume Mean Corpuscular 27.3 L Hemoglobin Mean Corpuscular 31.7 L Hemoglobin Concent Red Cell 13.2 Distribution Width Platelet Count 270 Mean Platelet Volume 11.2 H Immature 0.400 Granulocytes % Neutrophils % 64.9 Lymphocytes % 25.2 Monocytes % 6.7 Eosinophils % 2.4 Basophils % 0.4 Nucleated Red Blood 0.0 Cells % Immature 0.020 Granulocytes # Neutrophils # 3.5 Lymphocytes # 1.4 Monocytes # 0.4 Eosinophils # 0.1 Basophils # 0.0 Nucleated Red Blood 0.0 Cells # Test 02/20/19 08:52 Bedside Glucose 273 H Medications Medication Current Medications Ondansetron HCl (Zofran Inj) 4 mg Q6H PRN IV NAUSEA AND/OR VOMITING; Start 02/16/19 at 15:30 Lorazepam (Ativan) 2 mg Q6H PRN IV seizure or agitation; Start 02/16/19 at 15:30 Heparin Sodium (Porcine) (Heparin (5000 Units/1ml)) 5,000 unit BID SC Last administered on 02/20/19 08:50; Admin Dose 5,000 UNIT; Start 02/16/19 at 21:00 Hydralazine HCl (Apresoline) 10 mg Q6H PRN IV sbp>160mmhg Last administered on 02/20/19 01:37; Admin Dose 10 MG; Start 02/16/19 at 16:00 Metoprolol Tartrate (Lopressor) 25 mg BID PO Last administered on 02/20/19 08:49; Admin Dose 25 MG; Start 02/17/19 at 00:30 Nifedipine (Procardia Xl) 30 mg DAILY PO Last administered on 02/20/19 08:49; Admin Dose 30 MG; Start 02/17/19 at 09:00 Piperacillin Sod/ Tazobactam Sod 50 ml @ 100 mls/hr Q8 IVPB Last administered on 02/20/19 06:11; Admin Dose 100 MLS/HR; Start 02/17/19 at 13:00 Diagnostic Test (Pha) (Accu-Chek) 1 ea 02 XX Last administered on 02/19/19 02:30; Admin Dose 1 EA; Start 02/18/19 at 02:00 Insulin Glargine (Lantus) 15 units DAILY@0800 SC Last administered on 02/20/19 08:57; Admin Dose 15 UNITS; Start 02/18/19 at 08:00 Insulin Aspart (Novolog Insulin Pen) 5 unit WITH MEALS SC Last administered on 02/20/19 08:55; Admin Dose 5 UNIT; Start 02/17/19 at 11:50 Insulin Aspart (Novolog Insulin Pen) NOVOLOG *MILD* ALGORITHM WITH MEALS BEDTIME SC Last administered on 02/20/19 08:56; Admin Dose 4 UNIT; Start 02/17/19 at 11:50 Miscellaneous Information 1 ea NOTE XX ; Start 02/17/19 at 11:30 Glucose (Glutose) 15 gm Q15M PRN PO DECREASED GLUCOSE; Start 02/17/19 at 11:30 Glucose (Glutose) 22.5 gm Q15M PRN PO DECREASED GLUCOSE; Start 02/17/19 at 11:30 Dextrose (D50w Syringe) 25 ml Q15M PRN IV DECREASED GLUCOSE; Start 02/17/19 at 11:30 Dextrose (D50w Syringe) 50 ml Q15M PRN IV DECREASED GLUCOSE; Start 02/17/19 at 11:30 Glucagon (Glucagen) 1 mg Q15M PRN IM DECREASED GLUCOSE; Start 02/17/19 at 11:30 Glucose (Glutose) 15 gm Q15M PRN BUCCAL DECREASED GLUCOSE; Start 02/17/19 at 11:30 Sodium Hypochlorite (Dakins Diluted (1/40)) 1 applic DAILY TP Last administered on 02/19/19 08:55; Admin Dose 1 APPLIC; Start 02/17/19 at 14:30 Famotidine (Pepcid) 20 mg DAILY PO Last administered on 02/20/19 08:49; Admin Dose 20 MG; Start 02/18/19 at 09:00 Gentamicin Sulfate (Gentamicin 0.1% Oint) 1 applic TID TOP Last administered on 02/20/19 08:48; Admin Dose 1 APPLIC; Start 02/18/19 at 13:00 Hydralazine HCl (Apresoline) 25 mg BID PO Last administered on 02/20/19 08:49; Admin Dose 25 MG; Start 02/18/19 at 12:30 JOHANNY ROSARIO NP February 20, 2019 10:30
--- NOTE | 2019-02-20 11:45 | CONS ---
Assessment/Plan Assessment/Plan Hospital Course 54 yo F with multiple comorbidities who presents for evaluation of seizures, her first reported of life... for which neurology is consulted. The clinical picture is most consistent with a provoked seizure, in the context of severe hyperglycemia. New onset epilepsy is less likely. MRI brain is without acute intracranial pathology, though notable for L temporal lobe edema, likely a sequelae of recent seizures. EEG is without epileptiform activity. P: Ok to defer AED therapy for now Ativan IV PRN prolonged seizure or for cluster Cont medical management per primary PT/OT as necessary Will follow clinically, to recommend neurologic studies, as necessary Consultation Date/Type/Reason Admit Date/Time February 16, 2019 at 11:30 Type of Consult Neurology Reason for Consultation new onset seizures Requesting Provider: ERICKA CATHERINE Date/Time of Note DATE: 02/20/19 TIME: 11:45 24 HR Interval Summary Free Text/Dictation Continues acute care. Transferred to [facility]. Exam Vital Signs Vitals Vital Signs Date Temp Pulse Resp B/P (MAP) Pulse Ox O2 O2 Flow FiO2 Time Delivery Rate 02/20/19 98.8 75 18 151/68 98 07:37 (95) 02/19/19 Room Air 22:05 02/16/19 2.0 15:15 Intake and Output 02/19/19 02/19/19 02/20/19 1515:00 23:00 07:00 IntakeIntake Total 550 ml OutputOutput Total 700 ml BalanceBalance -150 ml Exam PE: Gen Appearance: No Apparent Distress HEENT: Normocephalic Cardiovascular: Regular rate Lungs: Clear bilaterally Abdomen: Soft Extremities: Dry; L foot dressing NE: The patient was alert and oriented to self and hospital. Language was normal. Fund of knowledge was limited. Pupils were equal and reactive to light. There was no afferent pupillary defect. Visual isabel were normal. Funduscopic examination was limited. Extra-ocular movements were full. Ptosis was absent. There was no nystagmus. Facial sensation was normal. Face was symmetric with normal strength. Hearing was intact. Palate movements were normal. Neck strength was normal. There was normal tongue bulk and speed of movement. Tone was normal. Muscle bulk was normal. I did not see fasciculations. Arms and legs were strong. Vibration sensation was normal. Temperature and pinprick sensation was normal. Rapid alternating movements were normal. There was no dysmetria. There was no intention tremor. Gait was deferred due to bedrest. Arm and leg reflexes were 2+ and symmetric. Álvarez's sign was absent. Plantar responses were flexor. INGE SINGER NP February 20, 2019 11:45
[2019-02-20 14:00] VITALS: BP 124/68; PULSE 77; RESP 18
--- NOTE | 2019-02-20 15:27 | PN ---
Date/Time of Note Date/Time of Note DATE: 02/20/19 TIME: 15:15 Assessment/Plan VTE Prophylaxis Risk score (from Nsg)>0 risk: 2 SCD applied (from Ns): No SCD contraindicated: other (wound lower extremity) Pharmacological prophylaxis: heparin Lines/Catheters IV Catheter Type (from Nrs): Saline Lock Urinary Cath still in place: No Assessment/Plan Hospital Course 1. acute encephalopathy, likely toxic metabolic -MRI of the brain demonstrates subtle patchy diffusion abnormality of the left temporal lobe associated with mild cortical edema which can be consistent with post ictal changes of the left temporal lobe. no acute ischemia -still with intermittent confusion -Stable at present 2. SIRS: -transient fevers now resolved, blood cultures negative - improved 3. New onset Isolated seizure episode 2/2 #2 -no further seizures - continue neurologist recommendations 4. Hyperosmolar non ketotic hyperglycemic state -resolved 5. DM2 : -family reports non compliance, repeat a1c 11.8 -continue insulin regimen. Will adjust as needed 6. HTN s/p Hypertensive emergency -improved, now started on oral meds -plan to switch hydralazine to ACEi or ARB once renal function stabilizes 7. Hx of c-diff colitis 8. Rickey on CKD -improved 9. Chronic L foot wound with persistent chronic osteomyelitis -s/p treatment completed about 2 weeks ago -wound is still oozing, podiatry recommends abx per ID and cultures -no surgical intervention for now, -f/u ID for abx regimen 10, hyperkalemia resolved 11.dyslipidemia - statin DISPO/PLAN: f/u ID for abx regimen. d/c planning. continue PT. will see for possible snf placement Discussed POC with Dr. Lorenzana Result Diagram: 02/20/19 0753 02/19/19 0622 Results 24hrs Laboratory Tests Test 02/19/19 17:27 02/19/19 21:08 02/20/19 07:53 02/20/19 08:52 Bedside Glucose 165 180 273 H White Blood Count 5.4 Red Blood Count 3.37 L Hemoglobin 9.2 L Hematocrit 29.0 L Mean Corpuscular 86.1 Volume Mean Corpuscular 27.3 L Hemoglobin Mean Corpuscular 31.7 L Hemoglobin Concent Red Cell 13.2 Distribution Width Platelet Count 270 Mean Platelet Volume 11.2 H Immature 0.400 Granulocytes % Neutrophils % 64.9 Lymphocytes % 25.2 Monocytes % 6.7 Eosinophils % 2.4 Basophils % 0.4 Nucleated Red Blood 0.0 Cells % Immature 0.020 Granulocytes # Neutrophils # 3.5 Lymphocytes # 1.4 Monocytes # 0.4 Eosinophils # 0.1 Basophils # 0.0 Nucleated Red Blood 0.0 Cells # Test 02/20/19 12:30 Bedside Glucose 237 H Subjective 24 Hr Interval Summary Free Text/Dictation no s/s of distress. comfortable at present. Exam/Review of Systems Exam Vitals Vital Signs Date Temp Pulse Resp B/P (MAP) Pulse Ox O2 O2 Flow FiO2 Time Delivery Rate 02/20/19 98.0 77 18 124/68 96 14:00 (86) 02/19/19 Room Air 22:05 02/16/19 2.0 15:15 Intake and Output 02/19/19 02/19/19 02/20/19 1515:00 23:00 07:00 IntakeIntake Total 550 ml 50 ml OutputOutput Total 700 ml BalanceBalance -150 ml 50 ml Constitutional: alert, oriented Psych: nl mood/affect Head: normocephalic Neck: supple Respiratory: clear to auscultation Cardiovascular: regular rate and rhythm Gastrointestinal: soft, non-tender Neurological: KETTLE CHIPPER II-XII intact, nl mental status, nl speech Skin: other (LLE dressing in place ) Results Results 24hrs Laboratory Tests Test 02/19/19 17:27 02/19/19 21:08 02/20/19 07:53 02/20/19 08:52 Bedside Glucose 165 180 273 H White Blood Count 5.4 Red Blood Count 3.37 L Hemoglobin 9.2 L Hematocrit 29.0 L Mean Corpuscular 86.1 Volume Mean Corpuscular 27.3 L Hemoglobin Mean Corpuscular 31.7 L Hemoglobin Concent Red Cell 13.2 Distribution Width Platelet Count 270 Mean Platelet Volume 11.2 H Immature 0.400 Granulocytes % Neutrophils % 64.9 Lymphocytes % 25.2 Monocytes % 6.7 Eosinophils % 2.4 Basophils % 0.4 Nucleated Red Blood 0.0 Cells % Immature 0.020 Granulocytes # Neutrophils # 3.5 Lymphocytes # 1.4 Monocytes # 0.4 Eosinophils # 0.1 Basophils # 0.0 Nucleated Red Blood 0.0 Cells # Test 02/20/19 12:30 Bedside Glucose 237 H Medications Medication Current Medications Ondansetron HCl (Zofran Inj) 4 mg Q6H PRN IV NAUSEA AND/OR VOMITING; Start 02/16/19 at 15:30 Lorazepam (Ativan) 2 mg Q6H PRN IV seizure or agitation; Start 02/16/19 at 15:30 Heparin Sodium (Porcine) (Heparin (5000 Units/1ml)) 5,000 unit BID SC Last administered on 02/20/19 08:50; Admin Dose 5,000 UNIT; Start 02/16/19 at 21:00 Hydralazine HCl (Apresoline) 10 mg Q6H PRN IV sbp>160mmhg Last administered on 02/20/19 01:37; Admin Dose 10 MG; Start 02/16/19 at 16:00 Metoprolol Tartrate (Lopressor) 25 mg BID PO Last administered on 02/20/19 08:49; Admin Dose 25 MG; Start 02/17/19 at 00:30 Nifedipine (Procardia Xl) 30 mg DAILY PO Last administered on 02/20/19 08:49; Admin Dose 30 MG; Start 02/17/19 at 09:00 Piperacillin Sod/ Tazobactam Sod 50 ml @ 100 mls/hr Q8 IVPB Last administered on 02/20/19 13:36; Admin Dose 100 MLS/HR; Start 02/17/19 at 13:00 Diagnostic Test (Pha) (Accu-Chek) 1 ea 02 XX Last administered on 02/19/19 02:30; Admin Dose 1 EA; Start 02/18/19 at 02:00 Insulin Glargine (Lantus) 15 units DAILY@0800 SC Last administered on 02/20/19 08:57; Admin Dose 15 UNITS; Start 02/18/19 at 08:00 Insulin Aspart (Novolog Insulin Pen) 5 unit WITH MEALS SC Last administered on 02/20/19 12:31; Admin Dose 5 UNIT; Start 02/17/19 at 11:50 Insulin Aspart (Novolog Insulin Pen) NOVOLOG *MILD* ALGORITHM WITH MEALS BEDTIME SC Last administered on 02/20/19 12:32; Admin Dose 3 UNIT; Start 02/17/19 at 11:50 Miscellaneous Information 1 ea NOTE XX ; Start 02/17/19 at 11:30 Glucose (Glutose) 15 gm Q15M PRN PO DECREASED GLUCOSE; Start 02/17/19 at 11:30 Glucose (Glutose) 22.5 gm Q15M PRN PO DECREASED GLUCOSE; Start 02/17/19 at 11:30 Dextrose (D50w Syringe) 25 ml Q15M PRN IV DECREASED GLUCOSE; Start 02/17/19 at 11:30 Dextrose (D50w Syringe) 50 ml Q15M PRN IV DECREASED GLUCOSE; Start 02/17/19 at 11:30 Glucagon (Glucagen) 1 mg Q15M PRN IM DECREASED GLUCOSE; Start 02/17/19 at 11:30 Glucose (Glutose) 15 gm Q15M PRN BUCCAL DECREASED GLUCOSE; Start 02/17/19 at 11:30 Sodium Hypochlorite (Dakins Diluted ()) 1 applic DAILY TP Last administered on 02/20/19 13:38; Admin Dose 1 APPLIC; Start 02/17/19 at 14:30 Famotidine (Pepcid) 20 mg DAILY PO Last administered on 02/20/19 08:49; Admin Dose 20 MG; Start 02/18/19 at 09:00 Gentamicin Sulfate (Gentamicin 0.1% Oint) 1 applic TID TOP Last administered on 02/20/19 13:38; Admin Dose 1 APPLIC; Start 02/18/19 at 13:00 Hydralazine HCl (Apresoline) 25 mg BID PO Last administered on 02/20/19 08:49; Admin Dose 25 MG; Start 02/18/19 at 12:30 JOHANNY ROSARIO NP February 20, 2019 15:27
[2019-02-20 20:32] VITALS: BP 184/88; PULSE 80; RESP 18
[2019-02-20 20:50] VITALS: BP 147/83; PULSE 84
[2019-02-21] MEDS: ACCU-CHEK XX SCH (01:32)
[2019-02-21 02:47] VITALS: BP 169/90; PULSE 74; RESP 18
[2019-02-21] MEDS: hydrALAzine 20 MG INJ IV PRN (02:49)
[2019-02-21 04:35] VITALS: BP 119/70; PULSE 78
[2019-02-21] MEDS: PIPER-TAZO 2.25 GM (PMX) 50 ML IVPB SCH ×3 (05:04→21:26)
[2019-02-21] MEDS: DIPHENHYDRAMINE 25 MG CAP PO SCH ×4 (05:29→23:25)
[2019-02-21 07:31] VITALS: BP 146/65; PULSE 68; RESP 15
[2019-02-21] MEDS: NIFEdipine (XL) 30 MG TAB PO SCH (09:02)
[2019-02-21] MEDS: METOPROLOL 25 MG TAB PO SCH ×2 (09:03→20:24)
[2019-02-21] MEDS: FAMOTIDINE 20 MG TAB PO SCH (09:03)
[2019-02-21] MEDS: HEPARIN 5,000 UNIT/1 ML VIAL SC SCH ×2 (09:05→20:25)
[2019-02-21] MEDS: INSULIN GLARGINE [LANTus] (100 UNITS/ML) SYG SC SCH (09:05)
[2019-02-21] MEDS: INSULIN ASPART [NOVOLOG] 3 ML PEN SC SCH ×7 (09:06→20:24)
[2019-02-21] MEDS: DAKINS 0.0125%(1/40) 473 ML SOLUTION TP SCH (09:11)
[2019-02-21] MEDS: GENTAMICIN 0.1% 15 GM OINT TOP SCH ×3 (09:11→20:26)
--- NOTE | 2019-02-21 12:44 | CONS ---
Assessment/Plan Assessment/Plan Hospital Course 54 yo F with multiple comorbidities who presents for evaluation of seizures, her first reported of life... for which neurology is consulted. The clinical picture is most consistent with a provoked seizure, in the context of severe hyperglycemia. New onset epilepsy is less likely. MRI brain is without acute intracranial pathology, though notable for L temporal lobe edema, likely a sequelae of recent seizures. EEG is without epileptiform activity. P: Ok to defer AED therapy for now Ativan IV PRN prolonged seizure or for cluster Cont medical management per primary PT/OT as necessary Will follow clinically, to recommend neurologic studies, as necessary Consultation Date/Type/Reason Admit Date/Time February 16, 2019 at 11:30 Type of Consult Neurology Reason for Consultation new onset seizures Requesting Provider: ERICKA CATHERINE Date/Time of Note DATE: 02/21/19 TIME: 12:43 24 HR Interval Summary Free Text/Dictation Continues acute care. Exam Vital Signs Vitals Vital Signs Date Temp Pulse Resp B/P (MAP) Pulse Ox O2 O2 Flow FiO2 Time Delivery Rate 02/21/19 97.0 68 15 146/65 91 Room Air 07:31 (92) Intake and Output 02/20/19 02/20/19 02/21/19 1515:00 23:00 07:00 IntakeIntake Total 1080 ml 420 ml 50 ml OutputOutput Total 775 ml 1300 ml BalanceBalance 305 ml -880 ml 50 ml Exam PE: Gen Appearance: No Apparent Distress HEENT: Normocephalic Cardiovascular: Regular rate Lungs: Clear bilaterally Abdomen: Soft Extremities: Dry; L foot dressing NE: The patient was alert and oriented to self and hospital. Language was normal. Fund of knowledge was limited. Pupils were equal and reactive to light. There was no afferent pupillary defect. Visual isabel were normal. Funduscopic examination was limited. Extra-ocular movements were full. Ptosis was absent. There was no nystagmus. Facial sensation was normal. Face was symmetric with normal strength. Hearing was intact. Palate movements were normal. Neck strength was normal. There was normal tongue bulk and speed of movement. Tone was normal. Muscle bulk was normal. I did not see fasciculations. Arms and legs were strong. Vibration sensation was normal. Temperature and pinprick sensation was normal. Rapid alternating movements were normal. There was no dysmetria. There was no intention tremor. Gait was deferred due to bedrest. Arm and leg reflexes were 2+ and symmetric. Álvarez's sign was absent. Plantar responses were flexor. INGE SINGER NP February 21, 2019 12:44
--- NOTE | 2019-02-21 14:04 | PN ---
Date/Time of Note Date/Time of Note DATE: 02/21/19 TIME: 13:18 Assessment/Plan VTE Prophylaxis Risk score (from Nsg)>0 risk: 3 SCD applied (from Ns): No SCD contraindicated: other (wound lower extremity) Pharmacological prophylaxis: heparin Lines/Catheters IV Catheter Type (from Nrs): Saline Lock Urinary Cath still in place: No Assessment/Plan Hospital Course 1. acute encephalopathy, likely toxic metabolic -MRI of the brain demonstrates subtle patchy diffusion abnormality of the left temporal lobe associated with mild cortical edema which can be consistent with post ictal changes of the left temporal lobe. no acute ischemia -still with intermittent confusion -Stable at present 2. SIRS: -transient fevers now resolved, blood cultures negative - improved 3. New onset Isolated seizure episode 2/2 #2 -no further seizures - continue neurologist recommendations 4. Hyperosmolar non ketotic hyperglycemic state -resolved 5. DM2 : -family reports non compliance, repeat a1c 11.8 -continue insulin regimen. Will adjust as needed 6. HTN s/p Hypertensive emergency -antihypertensives as needed. 7. Hx of c-diff colitis 8. Rickey on CKD -improved 9. Chronic L foot wound with persistent chronic osteomyelitis -s/p treatment completed about 2 weeks ago -abx per ID -no plan for surgical intervention for now, -f/u ID for abx regimen 10, hyperkalemia resolved 11.dyslipidemia - statin DISPO/PLAN: Discussed with patient, will get case management to follow for set up with home with [facility] safety and eval Discussed POC with Dr. Lorenzana Result Diagram: 02/21/19 0650 02/19/19 0622 Results 24hrs Laboratory Tests Test 02/20/19 17:10 02/20/19 20:48 02/21/19 06:50 02/21/19 09:01 Bedside Glucose 203 171 168 White Blood Count 6.4 Red Blood Count 3.26 L Hemoglobin 9.2 L Hematocrit 28.1 L Mean Corpuscular 86.2 Volume Mean Corpuscular 28.2 L Hemoglobin Mean Corpuscular 32.7 Hemoglobin Concent Red Cell 13.2 Distribution Width Platelet Count 264 Mean Platelet Volume 11.1 H Immature 0.300 Granulocytes % Neutrophils % 64.2 Lymphocytes % 26.6 Monocytes % 6.7 Eosinophils % 2.0 Basophils % 0.2 Nucleated Red Blood 0.0 Cells % Immature 0.020 Granulocytes # Neutrophils # 4.1 Lymphocytes # 1.7 Monocytes # 0.4 Eosinophils # 0.1 Basophils # 0.0 Nucleated Red Blood 0.0 Cells # Test 02/21/19 12:24 Bedside Glucose 174 Subjective 24 Hr Interval Summary Free Text/Dictation Comfortable present. No specific complaints. Exam/Review of Systems Exam Vitals Vital Signs Date Temp Pulse Resp B/P (MAP) Pulse Ox O2 O2 Flow FiO2 Time Delivery Rate 02/21/19 97.0 68 15 146/65 91 Room Air 07:31 (92) Intake and Output 02/20/19 02/20/19 02/21/19 1515:00 23:00 07:00 IntakeIntake Total 1080 ml 420 ml 50 ml OutputOutput Total 775 ml 1300 ml BalanceBalance 305 ml -880 ml 50 ml Exam Constitutional: alert, oriented Psych: nl mood/affect Head: normocephalic Neck: supple Respiratory: clear to auscultation Cardiovascular: regular rate and rhythm Gastrointestinal: soft, non-tender Neurological: PENSION AGENT II-XII intact, nl mental status, nl speech Skin: other (LLE dressing in place ) Results Results 24hrs Laboratory Tests Test 02/20/19 17:10 02/20/19 20:48 02/21/19 06:50 02/21/19 09:01 Bedside Glucose 203 171 168 White Blood Count 6.4 Red Blood Count 3.26 L Hemoglobin 9.2 L Hematocrit 28.1 L Mean Corpuscular 86.2 Volume Mean Corpuscular 28.2 L Hemoglobin Mean Corpuscular 32.7 Hemoglobin Concent Red Cell 13.2 Distribution Width Platelet Count 264 Mean Platelet Volume 11.1 H Immature 0.300 Granulocytes % Neutrophils % 64.2 Lymphocytes % 26.6 Monocytes % 6.7 Eosinophils % 2.0 Basophils % 0.2 Nucleated Red Blood 0.0 Cells % Immature 0.020 Granulocytes # Neutrophils # 4.1 Lymphocytes # 1.7 Monocytes # 0.4 Eosinophils # 0.1 Basophils # 0.0 Nucleated Red Blood 0.0 Cells # Test 02/21/19 12:24 Bedside Glucose 174 Medications Medication Current Medications Ondansetron HCl (Zofran Inj) 4 mg Q6H PRN IV NAUSEA AND/OR VOMITING; Start at 15:30 Lorazepam (Ativan) 2 mg Q6H PRN IV seizure or agitation; Start 02/16/19 at 15:30 Heparin Sodium (Porcine) (Heparin (5000 Units/1ml)) 5,000 unit BID SC Last administered on 02/21/19 09:05; Admin Dose 5,000 UNIT; Start 02/16/19 at 21:00 Hydralazine HCl (Apresoline) 10 mg Q6H PRN IV sbp>160mmhg Last administered on 02/21/19at 02:49; Admin Dose 10 MG; Start 02/16/19 at 16:00 Metoprolol Tartrate (Lopressor) 25 mg BID PO Last administered on 02/21/19 09:03; Admin Dose 25 MG; Start 02/17/19 at 00:30 Nifedipine (Procardia Xl) 30 mg DAILY PO Last administered on 02/21/19 09:02; Admin Dose 30 MG; Start 02/17/19 at 09:00 Piperacillin Sod/ Tazobactam Sod 50 ml @ 100 mls/hr Q8 IVPB Last administered on 02/21/19 05:04; Admin Dose 100 MLS/HR; Start 02/17/19 at 13:00 Diagnostic Test (Pha) (Accu-Chek) 1 ea 02 XX Last administered on 02/19/19 02:30; Admin Dose 1 EA; Start 02/18/19 at 02:00 Insulin Glargine (Lantus) 15 units DAILY@0800 SC Last administered on 02/21/19 09:05; Admin Dose 15 UNITS; Start 02/18/19 at 08:00 Insulin Aspart (Novolog Insulin Pen) 5 unit WITH MEALS SC Last administered on 02/21/19 12:25; Admin Dose 5 UNIT; Start 02/17/19 at 11:50 Insulin Aspart (Novolog Insulin Pen) NOVOLOG *MILD* ALGORITHM WITH MEALS BEDTIME SC Last administered on 02/21/19 12:26; Admin Dose 1 UNIT; Start 02/17/19 at 11:50 Miscellaneous Information 1 ea NOTE XX ; Start 02/17/19 at 11:30 Glucose (Glutose) 15 gm Q15M PRN PO DECREASED GLUCOSE; Start 02/17/19 at 11:30 Glucose (Glutose) 22.5 gm Q15M PRN PO DECREASED GLUCOSE; Start 02/17/19 at 11:30 Dextrose (D50w Syringe) 25 ml Q15M PRN IV DECREASED GLUCOSE; Start 02/17/19 at 11:30 Dextrose (D50w Syringe) 50 ml Q15M PRN IV DECREASED GLUCOSE; Start 02/17/19 at 11:30 Glucagon (Glucagen) 1 mg Q15M PRN IM DECREASED GLUCOSE; Start 02/17/19 at 11:30 Glucose (Glutose) 15 gm Q15M PRN BUCCAL DECREASED GLUCOSE; Start 02/17/19 at 11:30 Sodium Hypochlorite (Dakins Diluted (40)) 1 applic DAILY TP Last administered on 02/21/19at 09:11; Admin Dose 1 APPLIC; Start 02/17/19 at 14:30 Famotidine (Pepcid) 20 mg DAILY PO Last administered on 02/21/19at 09:03; Admin Dose 20 MG; Start 02/18/19 at 09:00 Gentamicin Sulfate (Gentamicin 0.1% Oint) 1 applic TID TOP Last administered on 02/21/19at 12:27; Admin Dose 1 APPLIC; Start 02/18/19 at 13:00 Hydralazine HCl (Apresoline) 25 mg BID PO Last administered on 02/21/19at 09:02; Admin Dose 25 MG; Start 02/18/19 at 12:30 Diphenhydramine HCl (Benadryl) 25 mg Q6H PO Last administered on 02/21/19at 12:24; Admin Dose 25 MG; Start 02/21/19 at 05:30; Stop 02/22/19 at 05:31 JOHANNY ROSARIO NP February 21, 2019 13:28
[2019-02-21 14:15] VITALS: BP 131/63; PULSE 71; RESP 15
[2019-02-21] MEDS: FLUCONAZOLE 200 MG TAB PO SCH (15:33)
[2019-02-21 19:30] VITALS: BP 145/71; PULSE 69; RESP 18
[2019-02-22] MEDS: ACCU-CHEK XX SCH (02:00)
[2019-02-22 02:05] VITALS: BP 143/73; PULSE 67; RESP 16
[2019-02-22] MEDS: DIPHENHYDRAMINE 25 MG CAP PO SCH (05:59)
[2019-02-22] MEDS: PIPER-TAZO 2.25 GM (PMX) 50 ML IVPB SCH (05:59)
[2019-02-22 07:35] VITALS: BP 183/86; PULSE 74; RESP 16
[2019-02-22] MEDS: hydrALAzine 20 MG INJ IV PRN (07:58)
[2019-02-22] MEDS: FLUCONAZOLE 200 MG TAB PO SCH (08:27)
[2019-02-22] MEDS: NIFEdipine (XL) 30 MG TAB PO SCH (08:27)
[2019-02-22] MEDS: FAMOTIDINE 20 MG TAB PO SCH (08:27)
[2019-02-22] MEDS: METOPROLOL 25 MG TAB PO SCH (08:27)
[2019-02-22] MEDS: INSULIN ASPART [NOVOLOG] 3 ML PEN SC SCH ×7 (08:29→20:18)
[2019-02-22] MEDS: INSULIN GLARGINE [LANTus] (100 UNITS/ML) SYG SC SCH (08:31)
[2019-02-22] MEDS: HEPARIN 5,000 UNIT/1 ML VIAL SC SCH ×2 (08:31→20:19)
[2019-02-22] MEDS: DAKINS 0.0125%(1/40) 473 ML SOLUTION TP SCH (08:49)
[2019-02-22] MEDS: GENTAMICIN 0.1% 15 GM OINT TOP SCH ×3 (08:49→20:20)
[2019-02-22 09:00] VITALS: BP 142/71; PULSE 73
--- NOTE | 2019-02-22 11:12 | CONS ---
Assessment/Plan Assessment/Plan Hospital Course 54 yo F with multiple comorbidities who presents for evaluation of seizures, her first reported of life... for which neurology is consulted. The clinical picture is most consistent with a provoked seizure, in the context of severe hyperglycemia. New onset epilepsy is less likely. MRI brain is without acute intracranial pathology, though notable for L temporal lobe edema, likely a sequelae of recent seizures. EEG is without epileptiform activity. P: Ok to defer AED therapy for now Ativan IV PRN prolonged seizure or for cluster Cont medical management per primary PT/OT as necessary Will follow clinically, to recommend neurologic studies, as necessary Consultation Date/Type/Reason Admit Date/Time February 16, 2019 at 11:30 Type of Consult Neurology Reason for Consultation new onset seizures Requesting Provider: ERICKA CATHERINE Date/Time of Note DATE: 02/22/19 TIME: 11:12 24 HR Interval Summary Free Text/Dictation Continues acute care. Exam Vital Signs Vitals Vital Signs Date Temp Pulse Resp B/P (MAP) Pulse Ox O2 O2 Flow FiO2 Time Delivery Rate 02/22/19 98.5 74 16 183/86 98 Room Air 07:35 (118) Intake and Output 02/21/19 02/21/19 02/22/19 1515:00 23:00 07:00 IntakeIntake Total 500 ml 290 ml BalanceBalance 500 ml 290 ml Exam PE: Gen Appearance: No Apparent Distress HEENT: Normocephalic Cardiovascular: Regular rate Lungs: Clear bilaterally Abdomen: Soft Extremities: Dry; L foot dressing NE: The patient was alert and oriented to self and hospital. Language was normal. Fund of knowledge was limited. Pupils were equal and reactive to light. There was no afferent pupillary defect. Visual isabel were normal. Funduscopic examination was limited. Extra-ocular movements were full. Ptosis was absent. There was no nystagmus. Facial sensation was normal. Face was symmetric with normal strength. Hearing was intact. Palate movements were normal. Neck strength was normal. There was normal tongue bulk and speed of movement. Tone was normal. Muscle bulk was normal. I did not see fasciculations. Arms and legs were strong. Vibration sensation was normal. Temperature and pinprick sensation was normal. Rapid alternating movements were normal. There was no dysmetria. There was no intention tremor. Gait was deferred due to bedrest. Arm and leg reflexes were 2+ and symmetric. Álvarez's sign was absent. Plantar responses were flexor. NIGE SINGER NP February 22, 2019 11:12
[2019-02-22] MEDS ORDERED: METO-429 PO (13:27)
[2019-02-22] MEDS ORDERED: HYDR-3671 PO (13:27)
--- NOTE | 2019-02-22 13:29 | DS ---
Date/Time of Note Date/Time of Note DATE: 02/22/19 TIME: 13:29 Discharge Summary Admission/Discharge Info Admit Date/Time February 16, 2019 at 11:30 Discharge Date/Time Discharge Diagnosis acute encephalopathy, likely toxic metabolic , post ictal - resolved New onset Isolated seizure episode 2/ #2 -no further episodes, no indication for antiepileptics at this time. Hyperosmolar non ketotic hyperglycemic state -resolved Diabetes mellitus type 2: -Hemoglobin A1c came back at 11.8. Patient noncompliant with diet and regimen even here in the hospital -Status post diabetic education, medication counseling and compliance reinforced -Patient will be discharged with home health to help with compliance. Hypertensive emergency -resolved HTN: fair control -ASHLEY inhibitor/ARB therapy on hold for now Hx of c-diff colitis CKD Chronic L foot wound with osteomyelitis -repeat cultures Still growing Staphylococcus aureus, enterococcus species and yeast. hyperkalemia - resolved . Patient Condition: Stable Consults Neurology: Carole Arevalo MD Podiatry: Christopher Jeff Infectious disease: Salo Goncalves MD . . Hx of Present Illness 54-year-old female who was brought in by ambulance because of a first time seizure. Apparently the patient came from home. Per emergency room notes, the patient had a sudden collapse and new onset tonic-clonic seizure that was witnessed by both family and EMS. Per report the patient has been having elevated blood pressures and blood sugars for the last 2 days. At the time of my evaluation, no history was obtainable from the patient as she was postictal. She was somnolent and did not follow commands. Hospital Course Patient was initially altered upon admission likely from postictal state and was admitted to the intensive care unit on insulin drip. She also required a short course of her nicardipine drip to control her blood pressure. She did well had no further seizures. She was worked up with a EEG and MRI. MRI just showed postictal state. Once her mentation improved, she was counseled on the need for good compliance with her blood pressure and diabetic control. Family also expressed frustration at lack of compliance. Patient was offered [facility] facility but she declined. At this time she will be discharged home to the care of her family with home health to help with wound care nursing. Of note is that she did have work-up for her chronic lower extremity wound that has known osteomyelitis. Repeat cultures as above. She will be discharged on a new course of antibiotic therapy. . Home Meds Active Scripts Insulin Glargine,Hum.rec.anlog (Basaglar Kwikpen U-100) 100 Unit/1 Ml Insuln.pen, 19 UNIT SC QHS for 30 Days, #6 EA 1 Refill Prov:SANCHEZ ANDERSON MD 01/14/19 Insulin Aspart* (Novolog Insulin Pen*) 100 Unit/Ml Soln, 6 UNIT SC WITH MEALS for 30 Days, #5 EA Prov:SANCHEZ ANDERSON MD 01/14/19 Lisinopril* (Lisinopril*) 20 Mg Tablet, 20 MG PO BID for 30 Days, #60 TAB Prov:SANCHEZ ANDERSON MD 01/14/19 Reported Medications Ondansetron Hcl* (Zofran*) 4 Mg Tab, 4 MG PO Q6H PRN for NAUSEA AND OR VOMITING, TAB 02/16/19 Vancomycin Hcl (Vancomycin Hcl Oral) 125 Mg Capsule, 125 MG PO Q6, CAP 02/16/19 Discontinued Reported Medications Ondansetron Hcl* (Zofran*) 4 Mg Tablet, 4 MG PO Q6H PRN for NAUSEA AND OR VOMITING, TAB 11/12/18 Polyethylene Glycol* (Miralax*) 17 Gm Powd.pack, 17 GM PO BID, #60 PACKET 11/12/18 Ascorbic Acid (Vitamin C) 500 Mg Tab, 500 MG PO DAILY, TAB 11/12/18 Zinc Sulfate* (Zinc Sulfate*) 220 Mg Cap, 220 MG PO DAILY, CAP 11/12/18 Famotidine* (Pepcid*) 20 Mg Tablet, 20 MG PO DAILY, #30 TAB 11/12/18 Amlodipine Besylate* (Amlodipine Besylate*) 10 Mg Tablet, 10 MG PO DAILY, #30 TAB 10/05/18 Discontinued Scripts Lancets (ACCU-CHEK) 1 Each Each, EACH MC, #1 Prov:SANCHEZ ANDERSON MD 01/14/19 Metronidazole* (Metronidazole*) 500 Mg Tablet, 500 MG PO Q6 for 10 Days, #40 TAB Prov:SANCHEZ ANDERSON MD 01/14/19 [place], Insulin Disposable (Fidelia Pen Needle) 1 Each Dis.needle, EACH ACHS A, #120 Prov:SANCHEZ ANDERSON MD 01/14/19 Lancets (Blood Lancets) 1 Each Each, EACH ACHS A, #120 Prov:SANCHEZ ANDERSON MD 01/14/19 Lactobacillus Rhamnosus GG (Culturelle) 1 Each Capsule, 1 CAP PO WITH MEALS for 30 Days, #90 CAP Prov:SANCHEZ ANDERSON MD 01/14/19 Gentamicin Sulfate* (Gentamicin Sulfate* Cream) 0.1% - 30 Gm Cream.gm., 1 APPLIC TOP TID for 30 Days, #1 TUB 6 Refills Prov:SANCHEZ ANDERSON MD 01/14/19 Bupropion Hcl (Bupropion Hcl SR) 150 Mg Tablet.sa, 150 MG PO BID for 11 Days Prov:ERNESTINE KELLOGG MD 10/27/18 Carvedilol* (Carvedilol*) 12.5 Mg Tablet, 12.5 MG PO BID for 14 Days, TAB Prov:ERNESTINE KELLOGG MD 10/27/18 Montelukast Sodium* (Montelukast Sodium*) 10 Mg Tablet, 10 MG PO HS for 30 Days, #30 TAB 6 Refills Prov:ERNESTINE KELLOGG MD 10/27/18 Aspirin (Aspirin) 81 Mg Chew, 81 MG PO DAILY for 30 Days, #30 TAB 6 Refills Prov:SANCHEZ ANDERSON MD 08/26/18 Hydralazine Hcl* (Apresoline*) 50 Mg Tab, 75 MG PO TID for 30 Days, #90 TAB 6 Refills Prov:SANCHEZ ANDERSON MD 08/26/18 Atorvastatin* (Atorvastatin*) 40 Mg Tablet, 40 MG PO HS for 30 Days, #30 TAB 6 Refills Prov:SANCHEZ ANDERSON MD 08/26/18 Clopidogrel Bisulfate (Clopidogrel) 75 Mg Tablet, 75 MG PO DAILY for 30 Days, #30 TAB 6 Refills Prov:SANCHEZ ANDERSON MD 08/26/18 Follow-up Plan Patient will maintain routine follow-up with primary care doctor within the next 1 to 2 weeks, she will also follow-up with podiatry for wound care Please followup with Dr Jeff for Podiatry Name, Degree: Christopher Jeff DPYelena Specialty: Podiatry Comments: Office Address: [address] [place] [address] [place] [address] Office Office Primary Care Provider [facility] Time spent on discharge: > 30 minutes Pending Labs Laboratory Tests Test 02/21/19 13:36 02/21/19 17:23 02/21/19 20:23 02/22/19 06:33 White Blood 6.3 6.2 Count 10^3/ul (4.8-10 10^3/ul (4.8-1 .8) 0.8) Red Blood 3.38 3.41 Count 10^6/ul (4.20-5 10^6/ul (4.20- .40) 5.40) Hemoglobin 9.4 9.4 g/dl (12.0-16.0 g/dl (12.0-16. ) 0) Hematocrit 29.9 30.1 % (37.0-47.0) % (37.0-47.0) Mean 88.5 88.3 Corpuscular fl (82.0-101.0) fl (82.0-101.0 Volume ) Mean 27.8 27.6 Corpuscular pg (29.0-33.0) pg (29.0-33.0) Hemoglobin Mean 31.4 31.2 Corpuscular g/dl (32.0-37.0 g/dl (32.0-37. Hemoglobin Conc ) 0) ent Red Cell 13.6 13.8 Distribution % (11.5-14.5) % (11.5-14.5) Width Platelet Count 291 274 10^3/UL (140-41 10^3/UL (140-4 5) 15) Mean Platelet 11.3 11.4 Volume fl (7.4-10.4) fl (7.4-10.4) Immature 0.300 0.300 Granulocytes % % (0.001-0.429) % (0.001-0.429 ) Neutrophils % 68.8 58.5 % (39.0-77.0) % (39.0-77.0) Lymphocytes % 23.3 29.8 % (15.0-51.0) % (15.0-51.0) Monocytes % 5.4 8.0 % (0.0-11.0) % (0.0-11.0) Eosinophils % 1.9 % (0.0-7.0) 2.9 % (0.0-7.0) Basophils % 0.3 % (0.0-2.0) 0.5 % (0.0-2.0) Nucleated Red 0.0 0.0 Blood Cells % /100WBC (0.0-0. /100WBC (0.0-0 0) .0) Immature 0.020 0.020 Granulocytes # 10^3/ul (0.0-0. 10^3/ul (0.0-0 031) .031) Neutrophils # 4.3 3.6 10^3/ul (1.6-7. 10^3/ul (1.6-7 5) .5) Lymphocytes # 1.5 1.8 10^3/ul (0.8-2. 10^3/ul (0.8-2 9) .9) Monocytes # 0.3 0.5 10^3/ul (0.3-0. 10^3/ul (0.3-0 9) .9) Eosinophils # 0.1 0.2 10^3/ul (0.0-0. 10^3/ul (0.0-0 5) .5) Basophils # 0.0 0.0 10^3/ul (0.0-0. 10^3/ul (0.0-0 1) .1) Nucleated Red 0.0 0.0 Blood Cells # 10^3/ul (0.0-0. 10^3/ul (0.0-0 0) .0) Sodium Level 136 141 mmol/L (135-144 mmol/L (135-14 ) 4) Potassium 4.4 4.9 Level mmol/L (3.5-5.1 mmol/L (3.5-5. ) 1) Chloride Level 108 111 mmol/L (97-110) mmol/L (97-110 ) Carbon Dioxide 22 25 Level mmol/L (21-31) mmol/L (21-31) Anion Gap 6 (5-13) 5 (5-13) Blood Urea 40 mg/dl (7-20) 43 Nitrogen mg/dl (7-20) Creatinine 1.60 1.90 mg/dl (0.44-1.0 mg/dl (0.44-1. 0) 00) Est Glomerular 33 mL/min (>60) 27 Filtrat mL/min (>60) Rate mL/min Glucose Level 190 171 mg/dl (70-220) mg/dl (70-220) Calcium Level 8.5 8.5 mg/dl (8.4-10.2 mg/dl (8.4-10. ) 2) Total 0.2 Bilirubin mg/dl (0.2-1.3) Direct 0.00 Bilirubin mg/dl (0.00-0.2 0) Indirect 0.2 Bilirubin mg/dl (0-1.1) Aspartate Amino 17 IU/L (15-46) Transf (AST/SGO T) Alanine 7 IU/L (13-69) Aminotransferas e (ALT/SGPT) Alkaline 152 Phosphatase IU/L (42-121) Total Protein 6.2 g/dl (6.1-8.1) Albumin 2.8 g/dl (3.3-4.9) Globulin 3.40 g/dl (1.3-3.2) Albumin/Globuli 0.82 n Ratio Bedside 150 95 Glucose mg/dL (70-220) mg/dL (70-220) Test 02/22/19 08:01 02/22/19 12:27 Bedside 168 263 Glucose mg/dL (70-220) mg/dL (70-220) ERICKA CATHERINE February 22, 2019 13:29
[2019-02-22 14:11] VITALS: BP 136/70; PULSE 70; RESP 15
[2019-02-22] MEDS: LACTOBACILLUS RHAMNOSUS CAP PO SCH ×2 (14:13→20:19)
[2019-02-22] MEDS: SOD CHLORIDE 0.9% 1,000 ML IV SCH (14:14)
[2019-02-22] MEDS ORDERED: LEVOFLOXACIN 750MG/D5W (PMX) 150 ML IVPB SCH (14:30)
[2019-02-22 19:27] VITALS: BP 126/68; PULSE 74; RESP 16
[2019-02-22] MEDS: METOPROLOL 50 MG TAB PO SCH (20:20)
[2019-02-22] MEDS ORDERED: INSULIN ASPART [NOVOLOG] 3 ML PEN SC ONE (21:00)
[2019-02-22] MEDS ORDERED: ACCU-CHEK XX ONE (23:00)
[2019-02-23 01:55] VITALS: BP 149/70; PULSE 70; RESP 16
[2019-02-23] MEDS: ACCU-CHEK XX SCH ×5 (02:00→21:00)
[2019-02-23] MEDS: SOD CHLORIDE 0.9% 1,000 ML IV SCH ×3 (02:50→22:09)
[2019-02-23 08:00] VITALS: BP 158/68; PULSE 71; RESP 18
[2019-02-23] MEDS: NIFEdipine (XL) 30 MG TAB PO SCH ×2 (08:21→20:57)
[2019-02-23] MEDS: FAMOTIDINE 20 MG TAB PO SCH (08:22)
[2019-02-23] MEDS: LACTOBACILLUS RHAMNOSUS CAP PO SCH ×2 (08:22→20:56)
[2019-02-23] MEDS: METOPROLOL 50 MG TAB PO SCH ×2 (08:22→20:56)
[2019-02-23] MEDS: GENTAMICIN 0.1% 15 GM OINT TOP SCH ×3 (08:23→20:59)
[2019-02-23] MEDS: FLUCONAZOLE 200 MG TAB PO SCH (08:23)
[2019-02-23] MEDS: DAKINS 0.0125%(1/40) 473 ML SOLUTION TP SCH (08:24)
[2019-02-23] MEDS: INSULIN ASPART [NOVOLOG] 3 ML PEN SC SCH ×7 (08:25→21:00)
[2019-02-23] MEDS: INSULIN GLARGINE [LANTus] (100 UNITS/ML) SYG SC SCH (08:27)
[2019-02-23] MEDS: HEPARIN 5,000 UNIT/1 ML VIAL SC SCH ×2 (08:27→20:58)
--- NOTE | 2019-02-23 11:58 | PDOCDIS ---
Discharge Instructions DIAGNOSIS Discharge Diagnosis acute encephalopathy, likely toxic metabolic , post ictal - resolved New onset Isolated seizure episode 2/ #2 -no further episodes, no indication for antiepileptics at this time. Hyperosmolar non ketotic hyperglycemic state -resolved Diabetes mellitus type 2: -Hemoglobin A1c came back at 11.8. Patient noncompliant with diet and regimen even here in the hospital -Status post diabetic education, medication counseling and compliance reinforced -Patient will be discharged with home health to help with compliance. Hypertensive emergency -resolved HTN: fair control -ASHLEY inhibitor/ARB therapy on hold for now Hx of c-diff colitis CKD Chronic L foot wound with osteomyelitis -repeat cultures Still growing Staphylococcus aureus, enterococcus species and yeast. hyperkalemia - resolved . CONDITION [id number] Patient Condition: [id number] Stable HOME CARE INSTRUCTIONS: [id number] Diet Instructions: [id number] Low Fat /Cholesterol (18--) [id number] Special Diet: [id number] Y: [id number] Activity Restrictions: [id number] Slowly Increase Activity Rest between Activity FOLLOW UP/APPOINTMENTS Follow-up Plan Patient will maintain routine follow-up with primary care doctor within the next 1 to 2 weeks, she will also follow-up with podiatry for wound care. Please followup with Dr Jeff for Podiatry Name, Degree: Christopher Jeff DPYelena Specialty: Podiatry Comments: Office Address: [address] [place] [address] Office Office OTHER ORDERS: Other Orders: You are being discharged with home health to help with wound care and physical therapy and to help make sure you take your medications appropriately. The name of the homecare company is [employer]. They can help you make a follow-up appointment with your doctors, they will help you with wound care, also they will help you make sure you are taking her medications appropriately. Ask them any questions you have. Usted est siendo dado de paige con nish en el hogar para ayudar con el cuidado de las heridas y para ayudar a asegurarse de sarah todd medicamentos apropiadamente. El nombre de la empresa de cuidados domsticos es [employer] del hogar [employer]. Ellos pueden ayudarle a hacer sarah aníbal de seguimiento con todd mdicos, que le ayudar con el cuidado de la herida, tambin le ayudar a asegurarse de que u sted est tomando todd medicamentos apropiadamente. Pregntales cualquier pregunta que tengas. ERICKA CATHERINE February 23, 2019 11:58
[2019-02-23] MEDS ORDERED: AMOX1TAB10 PO (11:59)
[2019-02-23] MEDS ORDERED: GENT30OI2 TOP (11:59)
[2019-02-23] MEDS ORDERED: LACT1CAP28 PO (11:59)
[2019-02-23] MEDS ORDERED: DOCU-144 PO (11:59)
[2019-02-23] MEDS ORDERED: FLUC100T39 PO (11:59)
[2019-02-23] MEDS ORDERED: ACETAMINOPHEN 325 MG TAB PO PRN (12:00)
[2019-02-23] MEDS ORDERED: NIFE30TA2 PO (12:00)
[2019-02-23] MEDS ORDERED: INSULIN GLARGINE [LANTus] (100 UNITS/ML) SYG SC ONE (13:00)
[2019-02-23] MEDS: LINAGLIPTIN 5 MG TABLET PO SCH (13:18)
--- NOTE | 2019-02-23 13:50 | CONS ---
Assessment/Plan Assessment/Plan Hospital Course (Demo Recall) Patient is alert feels good Microbiology: Left foot wound culture grew EBONY, yeast and enterococcus species Antimicrobials: Levaquin PHYSICAL EXAMINATION: GENERAL: This is a well-nourished, well-developed, middle-aged woman who is alert, in no distress. HEENT: Head atraumatic, normocephalic. NECK: Supple. CHEST: Rise symmetrical. Breath sounds clear. HEART: S1, S2. ABDOMEN: Soft, bowel sounds present. EXTREMITIES: With left foot dressing intact. Assessment: 1. Status post new onset seizure 2. Left foot diabetic ulceration with chronic osteomyelitis 3. Diabetes 4. Acute on chronic kidney disease Plan: Patient remains anticipate discharge on oral antibiotics to complete 10 days, add amoxicillin and fluconazole Consultation Date/Type/Reason Admit Date/Time February 16, 2019 at 11:30 Initial Consult Date Type of Consult id Requesting Provider: ERICKA CATHERINE Date/Time of Note DATE: 02/23/19 TIME: 13:48 Exam/Review of Systems Exam Vitals Vital Signs Date Temp Pulse Resp B/P (MAP) Pulse Ox O2 O2 Flow FiO2 Time Delivery Rate 02/23/19 98.1 71 18 158/68 98 08:00 (98) 02/22/19 Room Air 14:11 Intake and Output 02/22/19 02/22/19 02/23/19 1515:00 23:00 07:00 IntakeIntake Total 1275 ml 675 ml BalanceBalance 1275 ml 675 ml Results Result Diagram: 02/22/19 0633 02/23/19 1209 Results 24hrs Laboratory Tests Test 02/22/19 17:12 02/22/19 20:08 02/22/19 21:01 02/22/19 22:59 Bedside Glucose 361 H 345 H 329 H 226 H Test 02/23/19 01:55 02/23/19 08:19 02/23/19 11:56 02/23/19 12:09 Bedside Glucose 208 234 H 281 H Sodium Level 134 L Potassium Level 5.2 H Chloride Level 106 Carbon Dioxide Level 24 Anion Gap 4 L Blood Urea Nitrogen 46 H Creatinine 1.60 H Est Glomerular 33 L Filtrat Rate mL/min Glucose Level 306 H Calcium Level 8.4 Test 02/23/19 13:15 Bedside Glucose 375 H Medications Medication Current Medications Ondansetron HCl (Zofran Inj) 4 mg Q6H PRN IV NAUSEA AND/OR VOMITING; Start 02/16/19 at 15:30 Lorazepam (Ativan) 2 mg Q6H PRN IV seizure or agitation; Start 02/16/19 at 15:30 Heparin Sodium (Porcine) (Heparin (5000 Units/1ml)) 5,000 unit BID SC Last administered on 02/23/19 08:27; Admin Dose 5,000 UNIT; Start 02/16/19 at 21:00 Hydralazine HCl (Apresoline) 10 mg Q6H PRN IV sbp>160mmhg Last administered on 02/22/19 07:58; Admin Dose 10 MG; Start 02/16/19 at 16:00 Diagnostic Test (Pha) (Accu-Chek) 1 ea 02 XX Last administered on 02/19/19 02:30; Admin Dose 1 EA; Start 02/18/19 at 02:00 Insulin Aspart (Novolog Insulin Pen) NOVOLOG *MILD* ALGORITHM WITH MEALS BEDTIME SC Last administered on 02/23/19at 12:34; Admin Dose 4 UNIT; Start 02/17/19 at 11:50 Miscellaneous Information 1 ea NOTE XX ; Start 02/17/19 at 11:30 Glucose (Glutose) 15 gm Q15M PRN PO DECREASED GLUCOSE; Start 02/17/19 at 11:30 Glucose (Glutose) 22.5 gm Q15M PRN PO DECREASED GLUCOSE; Start 02/17/19 at 11:30 Dextrose (D50w Syringe) 25 ml Q15M PRN IV DECREASED GLUCOSE; Start 02/17/19 at 11:30 Dextrose (D50w Syringe) 50 ml Q15M PRN IV DECREASED GLUCOSE; Start 02/17/19 at 11:30 Glucagon (Glucagen) 1 mg Q15M PRN IM DECREASED GLUCOSE; Start 02/17/19 at 11:30 Glucose (Glutose) 15 gm Q15M PRN BUCCAL DECREASED GLUCOSE; Start 02/17/19 at 11:30 Sodium Hypochlorite (Dakins Diluted ()) 1 applic DAILY TP Last administered on 02/23/19 08:24; Admin Dose 1 APPLIC; Start 02/17/19 at 14:30 Famotidine (Pepcid) 20 mg DAILY PO Last administered on 02/23/19 08:22; Admin Dose 20 MG; Start 02/18/19 at 09:00 Gentamicin Sulfate (Gentamicin 0.1% Oint) 1 applic TID TOP Last administered on 02/23/19 12:28; Admin Dose 1 APPLIC; Start 02/18/19 at 13:00 Hydralazine HCl (Apresoline) 25 mg TID PO Last administered on 02/23/19 12:28; Admin Dose 25 MG; Start 02/22/19 at 21:00 Metoprolol Tartrate (Lopressor) 50 mg BID PO Last administered on 02/23/19 08:22; Admin Dose 50 MG; Start 02/22/19 at 21:00 Sodium Chloride 1,000 ml @ 75 mls/hr [id number] IV Last administered on 02/22/19 14:14; Admin Dose 75 MLS/HR; Start 02/22/19 at 13:30 Levofloxacin/ Dextrose 150 ml @ 100 mls/hr Q48H IVPB Last administered on 02/22/19 15:11; Admin Dose 100 MLS/HR; Start 02/22/19 at 14:30; Stop 03/04/19 at 14:29 Fluconazole (Diflucan) 200 mg DAILY PO Last administered on 02/23/19 08:23; Admin Dose 200 MG; Start 02/23/19 at 09:00; Stop 03/05/19 at 08:59 Lactobacillus Acidophilus/ Rhamnosus (Culturelle) 1 cap BID PO Last administered on 02/23/19 08:22; Admin Dose 1 CAP; Start 02/22/19 at 13:30 Insulin Aspart (Novolog Insulin Pen) 7 unit WITH MEALS SC Last administered on 02/23/19 12:35; Admin Dose 7 UNIT; Start 02/23/19 at 12:00 Insulin Glargine (Lantus) 17 units DAILY@0800 SC ; Start 02/24/19 at 08:00 Linagliptin (Tradjenta) 5 mg DAILY PO Last administered on 02/23/19 13:18; Admin Dose 5 MG; Start 02/23/19 at 12:00 Diagnostic Test (Pha) (Accu-Chek) 1 ea AC MEALS AND BEDTIME XX ; Start 02/23/19 at 17:30 Acetaminophen (Tylenol Tab) 650 mg Q6H PRN PO MILD PAIN(1-3)OR ELEVATED TEMP; Start 02/23/19 at 12:00 Nifedipine (Procardia Xl) 30 mg BID PO ; Start 02/23/19 at 21:00 KAYODE WESLEY NP February 23, 2019 13:50
[2019-02-23 14:00] VITALS: BP 144/70; PULSE 72; RESP 18
--- NOTE | 2019-02-23 14:01 | CONS ---
Assessment/Plan Assessment/Plan Hospital Course 54 yo F with multiple comorbidities who presents for evaluation of seizures, her first reported of life... for which neurology is consulted. The clinical picture is most consistent with a provoked seizure, in the context of severe hyperglycemia. New onset epilepsy is less likely. MRI brain is without acute intracranial pathology, though notable for L temporal lobe edema, likely a sequelae of recent seizures. EEG is without epileptiform activity. P: Ok to defer AED therapy for now Ativan IV PRN prolonged seizure or for cluster Cont medical management per primary PT/OT as necessary Will follow clinically, to recommend neurologic studies, as necessary Consultation Date/Type/Reason Admit Date/Time February 16, 2019 at 11:30 Type of Consult Neurology Reason for Consultation new onset seizures Requesting Provider: ERICKA CATHERINE Date/Time of Note DATE: 02/23/19 TIME: 14:01 24 HR Interval Summary Free Text/Dictation Continues acute care. Exam Vital Signs Vitals Vital Signs Date Temp Pulse Resp B/P (MAP) Pulse Ox O2 O2 Flow FiO2 Time Delivery Rate 02/23/19 98.1 71 18 158/68 98 08:00 (98) 02/22/19 Room Air 14:11 Intake and Output 02/22/19 02/22/19 02/23/19 1515:00 23:00 07:00 IntakeIntake Total 1275 ml 675 ml BalanceBalance 1275 ml 675 ml Exam PE: Gen Appearance: No Apparent Distress HEENT: Normocephalic Cardiovascular: Regular rate Lungs: Clear bilaterally Abdomen: Soft Extremities: Dry; L foot dressing NE: The patient was alert and oriented to self and hospital. Language was normal. Fund of knowledge was limited. Pupils were equal and reactive to light. There was no afferent pupillary defect. Visual isabel were normal. Funduscopic examination was limited. Extra-ocular movements were full. Ptosis was absent. There was no nystagmus. Facial sensation was normal. Face was symmetric with normal strength. Hearing was intact. Palate movements were normal. Neck strength was normal. There was normal tongue bulk and speed of movement. Tone was normal. Muscle bulk was normal. I did not see fasciculations. Arms and legs were strong. Vibration sensation was normal. Temperature and pinprick sensation was normal. Rapid alternating movements were normal. There was no dysmetria. There was no intention tremor. Gait was deferred due to bedrest. Arm and leg reflexes were 2+ and symmetric. Álvarez's sign was absent. Plantar responses were flexor. INGE SINGER NP February 23, 2019 14:01
--- NOTE | 2019-02-23 16:33 | EN ---
Date/Time of Note Date/Time of Note DATE: 02/23/19 TIME: 16:30 Event Note Medicine Medicine Event Note DC summary addendum S : discharge was held yesterday 2/ arrangements for home health O: Vital Sign - Last 24 Hours 02/22/19 02/23/19 02/23/19 02/23/19 19:27 01:55 08:00 14:00 Temp 98.1 98.3 98.1 98.0 Pulse 74 70 71 72 Resp 16 16 18 18 B/P (MAP) 126/68 (87) 149/70 (96) 158/68 (98) 144/70 (94) Pulse Ox 97 98 98 97 Intake and Output 02/22/19 02/22/19 02/23/19 1515:00 23:00 07:00 IntakeIntake Total 1275 ml 675 ml BalanceBalance 1275 ml 675 ml Constitutional: alert, oriented Psych: calm Head: normocephalic Neck: supple Respiratory: clear to auscultation Cardiovascular: regular rate and rhythm Gastrointestinal: soft, non-tender Neurological: no gross foacl deficits Skin: other (LLE dressing in place ) Laboratory Tests Test 02/22/19 17:12 02/22/19 20:08 02/22/19 21:01 02/22/19 22:59 Bedside Glucose 361 mg/dL 345 mg/dL 329 mg/dL 226 mg/dL Test 02/23/19 01:55 02/23/19 08:19 02/23/19 11:56 02/23/19 12:09 Bedside Glucose 208 mg/dL 234 mg/dL 281 mg/dL Sodium Level 134 mmol/L Potassium Level 5.2 mmol/L Chloride Level 106 mmol/L Carbon Dioxide Level 24 mmol/L Anion Gap 4 Blood Urea Nitrogen 46 mg/dl Creatinine 1.60 mg/dl Est Glomerular 33 mL/min Filtrat Rate mL/min Glucose Level 306 mg/dl Calcium Level 8.4 mg/dl Test 02/23/19 13:15 Bedside Glucose 375 mg/dL Current Medications Medications Dose Sig/Kofi Start Time Status Last (Trade) Ordered Route PRN Stop Time Admin Dose Reason Admin 100 ml @ ONCE ONCE 02/16/19 DC 02/16/19 Levetiracetam 400 mls/hr IVPB 09:30 09:37 02/16/19 09:44 Sodium 1,000 ml @ Q1H STAT 02/16/19 DC 02/16/19 Chloride 1,000 mls/hr IV 09:24 09:45 02/16/19 10:23 Lactated 1,000 ml @ Q1H STAT 02/16/19 DC 02/16/19 Ringer's 1,000 mls/hr IV 09:24 09:38 02/16/19 10:23 Ondansetron 4 mg ONCE STAT 02/16/19 DC 02/16/19 HCl (Zofran IV 09:24 09:37 Inj) 02/16/19 09:26 Insulin 16 unit ONCE ONCE 02/16/19 DC 02/16/19 Human SC 09:30 09:36 Lispro 02/16/19 09:31 (Humalog) Diagnostic 1 ea 2 HRS AFTER 02/16/19 DC 02/16/19 Test (Pha) HUMALOG ONCE 09:30 09:30 (Accu-Chek) XX 02/16/19 09:31 Enalaprilat 1.25 mg ONCE ONCE 02/16/19 DC 02/16/19 (Vasotec Iv) IV 09:30 10:02 02/16/19 09:31 Lorazepam 1 mg ONCE ONCE 02/16/19 DC 02/16/19 (Ativan) IV 10:00 10:08 02/16/19 10:01 Nicardipine 200 ml @ TITRATE IV 02/16/19 DC 02/16/19 HCl 50 mls/hr 11:30 11:43 02/17/19 10:58 Insulin 10 unit ONCE STAT 02/16/19 DC 02/16/19 Human IVP 11:41 11:54 Regular 02/16/19 11:43 (Humulin R) Dextrose ONCE PRN 02/16/19 DC (D50w IV DECREASED 12:00 Syringe) GLUCOSE 02/17/19 11:02 Discontinue PROTOCOL 02/16/19 DC Miscellaneous all previ... ONCE XX 12:30 02/16/19 12:31 Information (* Miscellaneous Pharmacy Order) Diagnostic 1 ea Q1H XX 02/16/19 DC 02/17/19 Test (Pha) 12:30 06:30 (Accu-Chek) 02/17/19 10:58 Insulin 100 ml @ 0 PER 02/16/19 DC 02/16/19 Human mls/hr PROTOCOL IV 12:30 12:42 Regular 100 02/17/19 10:58 unit/ Sodium Chloride Treatment Per 02/16/19 DC Miscellaneous of protocol XX 12:30 Hypoglycemia: 02/17/19 11:01 Information 1.BG 51... (* Miscellaneous Pharmacy Order) Dextrose 25 ml Q15M PRN 02/16/19 DC (D50w IV 12:30 Syringe) .DECREASED 02/17/19 11:02 GLUCOSE Dextrose 50 ml Q15M PRN 02/16/19 DC (D50w IV 12:30 Syringe) .DECREASED 02/17/19 11:02 GLUCOSE Sodium 1,000 ml @ Q6H40M IV 02/16/19 DC 02/17/19 Chloride 150 mls/hr 15:30 03:33 02/17/19 14:49 Ondansetron 4 mg Q6H PRN 02/16/19 HCl (Zofran IV NAUSEA 15:30 Inj) AND/OR VOMITING Lorazepam 2 mg Q6H PRN 02/16/19 (Ativan) IV seizure 15:30 or agitation Famotidine 20 mg DAILY IV 02/16/19 DC 02/17/19 (Pepcid Iv) 21:00 09:58 02/17/19 18:15 Heparin 5,000 unit BID SC 02/16/19 02/23/19 Sodium 21:00 08:27 (Porcine) (Heparin (5000 Units/1ml)) Hydralazine 10 mg Q6H PRN 02/16/19 02/22/19 HCl IV 16:00 07:58 (Apresoline) sbp>160mmhg 650 mg ONCE STAT 02/16/19 DC 02/16/19 Acetaminophen [place] 16:14 16:29 (Tylenol 02/16/19 16:19 Supp) Piperacillin 50 ml @ Q8 IVPB 02/17/19 DC 02/17/19 Sod/ 100 mls/hr 00:30 04:00 Tazobactam 02/17/19 07:21 Sod Metoprolol 25 mg BID PO 02/17/19 DC 02/22/19 Tartrate 00:30 08:27 (Lopressor) 02/22/19 13:26 Nifedipine 30 mg DAILY PO 02/17/19 DC 02/23/19 (Procardia 09:00 08:21 Xl) 02/23/19 12:00 Insulin 12 units ONCE ONCE 02/17/19 DC 02/17/19 Glargine SC 06:00 06:07 (Lantus) 02/17/19 06:01 Piperacillin 50 ml @ Q8 IVPB 02/17/19 DC 02/22/19 Sod/ 100 mls/hr 13:00 05:59 Tazobactam 02/22/19 13:30 Sod Discontinue ONCE ONCE 02/17/19 DC Miscellaneous current oral XX 11:00 sulfonylur... 02/17/19 11:03 Information (* Miscellaneous Pharmacy Order) Diagnostic 1 ea 02 XX 02/18/19 02/19/19 Test (Pha) 02:00 02:30 (Accu-Chek) Insulin 15 units DAILY@0800 02/18/19 DC 02/23/19 Glargine SC 08:00 08:27 (Lantus) 02/23/19 11:34 Insulin 5 unit WITH MEALS 02/17/19 DC 02/23/19 Aspart SC 11:50 08:25 (Novolog 02/23/19 11:34 Insulin Pen) ONCE ONCE 02/17/19 DC Miscellaneous HYPOGLYCEMIA XX 11:00 PROTOCOL 02/17/19 11:03 Information w... (* Miscellaneous Pharmacy Order) Insulin NOVOLOG WITH MEALS 02/17/19 02/23/19 Aspart *MILD* BEDTIME SC 11:50 12:34 (Novolog ALGORITHM Insulin Pen) Discontinue ONCE ONCE 02/17/19 DC Miscellaneous all previ... XX 11:00 02/17/19 11:03 Information (* Miscellaneous Pharmacy Order) 1 ea NOTE XX 02/17/19 Miscellaneous 11:30 Information Glucose 15 gm Q15M PRN 02/17/19 (Glutose) PO DECREASED 11:30 GLUCOSE Glucose 22.5 gm Q15M PRN 02/17/19 (Glutose) PO DECREASED 11:30 GLUCOSE Dextrose 25 ml Q15M PRN 02/17/19 (D50w IV DECREASED 11:30 Syringe) GLUCOSE Dextrose 50 ml Q15M PRN 02/17/19 (D50w IV DECREASED 11:30 Syringe) GLUCOSE Glucagon 1 mg Q15M PRN 02/17/19 (Glucagen) IM DECREASED 11:30 GLUCOSE Glucose 15 gm Q15M PRN 02/17/19 (Glutose) BUCCAL 11:30 DECREASED GLUCOSE Sodium 1 applic DAILY TP 02/17/19 02/23/19 Hypochlorite 14:30 08:24 (Dakins Diluted ()) Famotidine 20 mg DAILY PO 02/18/19 02/23/19 (Pepcid) 09:00 08:22 Gentamicin 1 applic TID TOP 02/18/19 02/23/19 Sulfate 13:00 12:28 (Gentamicin 0.1% Oint) Hydralazine 25 mg BID PO 02/18/19 DC 02/22/19 HCl 12:30 08:28 (Apresoline) 02/22/19 13:26 Insulin 6 unit ONCE ONCE 02/19/19 DC 02/19/19 Aspart SC 03:00 03:10 (Novolog 02/19/19 03:01 Insulin Pen) Diagnostic 1 ea 2 HRS AFTER 02/19/19 DC 02/19/19 Test (Pha) NOVOLOG ONCE 05:00 05:39 (Accu-Chek) XX 02/19/19 05:01 25 mg Q6H PO 02/21/19 DC 02/22/19 Diphenhydrami 05:30 05:59 ne HCl 02/22/19 05:31 (Benadryl) Fluconazole 200 mg DAILY PO 02/21/19 DC 02/22/19 (Diflucan) 14:00 08:27 02/22/19 13:37 Hydralazine 25 mg TID PO 02/22/19 02/23/19 HCl 21:00 12:28 (Apresoline) Metoprolol 50 mg BID PO 02/22/19 02/23/19 Tartrate 21:00 08:22 (Lopressor) Sodium 1,000 ml @ [id number] IV 02/22/19 02/22/19 Chloride 75 mls/hr 13:30 14:14 150 ml @ Q48H IVPB 02/22/19 DC 02/22/19 Levofloxacin/ 100 mls/hr 14:30 15:11 Dextrose 02/23/19 15:53 Fluconazole 200 mg DAILY PO 02/23/19 02/23/19 (Diflucan) 09:00 03/05/19 08:23 08:59 1 cap BID PO 02/22/19 02/23/19 Lactobacillus 13:30 08:22 Acidophilus/ Rhamnosus (Culturelle) Insulin 3 unit ONCE ONCE 02/22/19 DC 02/22/19 Aspart SC 21:00 21:05 (Novolog 02/22/19 21:01 Insulin Pen) Diagnostic 1 ea 2 HRS AFTER 02/22/19 DC Test (Pha) NOVOLOG ONCE 23:00 (Accu-Chek) XX 02/22/19 23:01 Insulin 7 unit WITH MEALS 02/23/19 02/23/19 Aspart SC 12:00 12:35 (Novolog Insulin Pen) Insulin 17 units DAILY@0800 02/24/19 Glargine SC 08:00 (Lantus) Insulin 10 units ONCE ONCE 02/23/19 DC 02/23/19 Glargine SC 13:00 13:22 (Lantus) 02/23/19 13:01 Linagliptin 5 mg DAILY PO 02/23/19 02/23/19 (Tradjenta) 12:00 13:18 Diagnostic 1 ea AC MEALS AND 02/23/19 Test (Pha) BEDTIME XX 17:30 (Accu-Chek) 650 mg Q6H PRN 02/23/19 Acetaminophen PO MILD 12:00 (Tylenol PAIN(1-3)OR Tab) ELEVATED TEMP Nifedipine 30 mg BID PO 02/23/19 (Procardia 21:00 Xl) 750 mg Q48H PO 02/24/19 Levofloxacin 06:00 03/04/19 (Levaquin) 12:00 Final assessment and plan: acute encephalopathy, likely toxic metabolic , post ictal - resolved New onset Isolated seizure episode 2/2 #2 -no further episodes, no indication for antiepileptics at this time. Hyperosmolar non ketotic hyperglycemic state -resolved Diabetes mellitus type 2: -Hemoglobin A1c came back at 11.8. Patient noncompliant with diet and regimen even here in the hospital -Status post diabetic education, medication counseling and compliance reinforced -Patient will be discharged with home health to help with compliance. Hypertensive emergency -resolved HTN: fair control -ASHLEY inhibitor/ARB therapy on hold for now Hx of c-diff colitis CKD Chronic L foot wound with osteomyelitis -repeat cultures Still growing Staphylococcus aureus, enterococcus species and yeast. hyperkalemia - resolved Discharge condition : Stable . . ERICKA CATHERINE February 23, 2019 16:33
[2019-02-23] MEDS: glipiZIDE 5 MG TAB PO SCH (18:29)
[2019-02-23 20:27] VITALS: BP 127/66; PULSE 75; RESP 18
[2019-02-24] MEDS: ACCU-CHEK XX SCH ×9 (02:00→21:00)
[2019-02-24 02:17] VITALS: BP 136/61; PULSE 73; RESP 16
[2019-02-24] MEDS: SOD CHLORIDE 0.9% 1,000 ML IV SCH ×2 (05:30→11:43)
[2019-02-24] MEDS ORDERED: LEVOFLOXACIN 750 MG TABLET PO SCH (06:00)
[2019-02-24] MEDS: glipiZIDE 5 MG TAB PO SCH ×2 (07:00→17:12)
[2019-02-24 07:18] VITALS: BP 127/62; PULSE 72; RESP 18
[2019-02-24] MEDS: INSULIN ASPART [NOVOLOG] 3 ML PEN SC SCH ×8 (08:00→20:27)
[2019-02-24] MEDS: INSULIN GLARGINE [LANTus] (100 UNITS/ML) SYG SC SCH ×2 (08:00→10:08)
[2019-02-24] MEDS: LINAGLIPTIN 5 MG TABLET PO SCH (08:27)
[2019-02-24] MEDS: FAMOTIDINE 20 MG TAB PO SCH (08:28)
[2019-02-24] MEDS: GENTAMICIN 0.1% 15 GM OINT TOP SCH ×3 (08:28→20:27)
[2019-02-24] MEDS: LACTOBACILLUS RHAMNOSUS CAP PO SCH ×2 (08:28→20:20)
[2019-02-24] MEDS: DAKINS 0.0125%(1/40) 473 ML SOLUTION TP SCH (08:28)
[2019-02-24] MEDS: FLUCONAZOLE 200 MG TAB PO SCH (08:29)
[2019-02-24] MEDS: NIFEdipine (XL) 30 MG TAB PO SCH ×2 (08:29→20:21)
[2019-02-24] MEDS: METOPROLOL 50 MG TAB PO SCH ×2 (08:30→20:21)
[2019-02-24] MEDS: HEPARIN 5,000 UNIT/1 ML VIAL SC SCH ×2 (08:31→20:22)
[2019-02-24] MEDS ORDERED: FLUCONAZOLE 100 MG TAB PO SCH (09:00)
[2019-02-24 13:47] VITALS: BP 115/59; PULSE 65; RESP 18
[2019-02-24] MEDS ORDERED: AMOXICILLIN 250 MG CAP PO SCH (14:00)
--- NOTE | 2019-02-24 14:18 | CONS ---
Assessment/Plan Assessment/Plan Hospital Course 54 yo F with multiple comorbidities who presents for evaluation of seizures, her first reported of life... for which neurology is consulted. The clinical picture is most consistent with a provoked seizure, in the context of severe hyperglycemia. New onset epilepsy is less likely. MRI brain is without acute intracranial pathology, though notable for L temporal lobe edema, likely a sequelae of recent seizures. EEG is without epileptiform activity. P: Ok to defer AED therapy for now Ativan IV PRN prolonged seizure or for cluster Cont medical management per primary PT/OT as necessary Will follow clinically, to recommend neurologic studies, as necessary Consultation Date/Type/Reason Admit Date/Time February 16, 2019 at 11:30 Type of Consult Neurology Reason for Consultation new onset seizures Requesting Provider: ERICKA CATHERINE Date/Time of Note DATE: 02/24/19 TIME: 14:18 24 HR Interval Summary Free Text/Dictation Continues acute care. Exam Vital Signs Vitals Vital Signs Date Temp Pulse Resp B/P (MAP) Pulse Ox O2 O2 Flow FiO2 Time Delivery Rate 02/24/19 98.1 65 18 115/59 95 Room Air 13:47 (77) Intake and Output 02/23/19 02/23/19 02/24/19 1515:00 23:00 07:00 IntakeIntake Total 1040 ml 1240 ml BalanceBalance 1040 ml 1240 ml Exam PE: Gen Appearance: No Apparent Distress HEENT: Normocephalic Cardiovascular: Regular rate Lungs: Clear bilaterally Abdomen: Soft Extremities: Dry; L foot dressing NE: The patient was alert and oriented to self and hospital. Language was normal. Fund of knowledge was limited. Pupils were equal and reactive to light. There was no afferent pupillary defect. Visual isabel were normal. Funduscopic examination was limited. Extra-ocular movements were full. Ptosis was absent. There was no nystagmus. Facial sensation was normal. Face was symmetric with normal strength. Hearing was intact. Palate movements were normal. Neck strength was normal. There was normal tongue bulk and speed of movement. Tone was normal. Muscle bulk was normal. I did not see fasciculations. Arms and legs were strong. Vibration sensation was normal. Temperature and pinprick sensation was normal. Rapid alternating movements were normal. There was no dysmetria. There was no intention tremor. Gait was deferred due to bedrest. Arm and leg reflexes were 2+ and symmetric. Álvarez's sign was absent. Plantar responses were flexor. INGE SINGER NP February 24, 2019 14:18
[2019-02-24] MEDS ORDERED: GLIP5TAB13 PO (14:33)
[2019-02-24] MEDS ORDERED: LINA5TAB PO (14:33)
--- NOTE | 2019-02-24 15:03 | CONS ---
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 Recommend to continue with abx per ID recommendations and topical gentamicin ointment to wound sites. Diflucan ordered for patient. Non weight bearing to left lower extremity. Continue to offload heels with pillows. Tight glycemic control. Continue with daily dressing changes. Nursing recommendations provided. Patient would benefit from diabetes education. Recommend outpatient follow up in wound care clinic here at [facility] Consultation Date/Type/Reason Admit Date/Time February 16, 2019 at 11:30 Initial Consult Date Requesting Provider: ERICKA CATHERINE Date/Time of Note DATE: 02/24/19 TIME: 15:02 24 HR Interval Summary Free Text/Dictation no acute events overnight Exam/Review of Systems Exam Vitals Vital Signs Date Temp Pulse Resp B/P (MAP) Pulse Ox O2 O2 Flow FiO2 Time Delivery Rate 02/24/19 98.1 65 18 115/59 95 Room Air 13:47 (77) Intake and Output 02/23/19 02/23/19 02/24/19 1515:00 23:00 07:00 IntakeIntake Total 1040 ml 1240 ml BalanceBalance 1040 ml 1240 ml Exam Pedal pulses weakly palpable Popliteal pulses palpable Left foot midfoot joint instability Absent protective sensations Left dorsal foot with epithelialized skin graft there is focal open lesion which probes to bone and no drainage appreciated 0.2 x 0.2 x 0.3cm Left dorsal proximal midfoot with a fibrogranular ulcer 1 x 0.7 x 0.2cm no probing to bone, no purulence Left 4th digit lateral aspect ulcer with signs of epithelialization appreciated Left lateral 5th metatarsal region with fibrotic ulceration 1.2 x 1 x 0.4cm unable to probe to bone Left posterior heel ulcer signs of epithelialization No proximal streaking No pain on palpation to ulceration sites. Results Result Diagram: 02/24/19 0602 02/24/19 0602 Results 24hrs Laboratory Tests Test 02/23/19 17:03 02/23/19 20:54 02/24/19 06:02 02/24/19 08:06 Bedside Glucose 281 H 109 71 White Blood Count 7.3 Red Blood Count 3.25 L Hemoglobin 9.0 L Hematocrit 28.8 L Mean Corpuscular 88.6 Volume Mean Corpuscular 27.7 L Hemoglobin Mean Corpuscular 31.3 L Hemoglobin Concent Red Cell 13.8 Distribution Width Platelet Count 269 Mean Platelet Volume 10.9 H Immature 0.300 Granulocytes % Neutrophils % 65.5 Lymphocytes % 25.3 Monocytes % 6.3 Eosinophils % 2.3 Basophils % 0.3 Nucleated Red Blood 0.0 Cells % Immature 0.020 Granulocytes # Neutrophils # 4.8 Lymphocytes # 1.9 Monocytes # 0.5 Eosinophils # 0.2 Basophils # 0.0 Nucleated Red Blood 0.0 Cells # Sodium Level 138 Potassium Level 5.1 Chloride Level 107 Carbon Dioxide Level 25 Anion Gap 6 Blood Urea Nitrogen 57 H Creatinine 1.67 H Est Glomerular 32 L Filtrat Rate mL/min Glucose Level 65 #L Calcium Level 9.0 Magnesium Level 2.3 Test 02/24/19 09:55 02/24/19 12:53 Bedside Glucose 155 86 Medications Medication Current Medications Ondansetron HCl (Zofran Inj) 4 mg Q6H PRN IV NAUSEA AND/OR VOMITING; Start 02/16/19 at 15:30 Lorazepam (Ativan) 2 mg Q6H PRN IV seizure or agitation; Start 02/16/19 at 15:30 Heparin Sodium (Porcine) (Heparin (5000 Units/1ml)) 5,000 unit BID SC Last administered on 02/24/19at 08:31; Admin Dose 5,000 UNIT; Start 02/16/19 at 21:00 Hydralazine HCl (Apresoline) 10 mg Q6H PRN IV sbp>160mmhg Last administered on 02/22/19at 07:58; Admin Dose 10 MG; Start 02/16/19 at 16:00 Diagnostic Test (Pha) (Accu-Chek) 1 ea 02 XX Last administered on 02/19/19at 02:30; Admin Dose 1 EA; Start 02/18/19 at 02:00 Insulin Aspart (Novolog Insulin Pen) NOVOLOG *MILD* ALGORITHM WITH MEALS BEDTIME SC Last administered on 02/23/19at 17:23; Admin Dose 4 UNIT; Start 02/17/19 at 11:50 Miscellaneous Information 1 ea NOTE XX ; Start 02/17/19 at 11:30 Glucose (Glutose) 15 gm Q15M PRN PO DECREASED GLUCOSE; Start 02/17/19 at 11:30 Glucose (Glutose) 22.5 gm Q15M PRN PO DECREASED GLUCOSE; Start 02/17/19 at 11:30 Dextrose (D50w Syringe) 25 ml Q15M PRN IV DECREASED GLUCOSE; Start 02/17/19 at 11:30 Dextrose (D50w Syringe) 50 ml Q15M PRN IV DECREASED GLUCOSE; Start 02/17/19 at 11:30 Glucagon (Glucagen) 1 mg Q15M PRN IM DECREASED GLUCOSE; Start 02/17/19 at 11:30 Glucose (Glutose) 15 gm Q15M PRN BUCCAL DECREASED GLUCOSE; Start 02/17/19 at 11:30 Sodium Hypochlorite (Dakins Diluted ()) 1 applic DAILY TP Last administered on 02/24/19 08:28; Admin Dose 1 APPLIC; Start 02/17/19 at 14:30 Famotidine (Pepcid) 20 mg DAILY PO Last administered on 02/24/19 08:28; Admin Dose 20 MG; Start 02/18/19 at 09:00 Gentamicin Sulfate (Gentamicin 0.1% Oint) 1 applic TID TOP Last administered on 02/24/19 13:04; Admin Dose 1 APPLIC; Start 02/18/19 at 13:00 Hydralazine HCl (Apresoline) 25 mg TID PO Last administered on 02/24/19 13:06; Admin Dose 25 MG; Start 02/22/19 at 21:00 Metoprolol Tartrate (Lopressor) 50 mg BID PO Last administered on 02/24/19 08:30; Admin Dose 50 MG; Start 02/22/19 at 21:00 Sodium Chloride 1,000 ml @ 75 mls/hr [id number] IV Last administered on 02/24/19 11:43; Admin Dose 75 MLS/HR; Start 02/22/19 at 13:30 Lactobacillus Acidophilus/ Rhamnosus (Culturelle) 1 cap BID PO Last administered on 02/24/19 08:28; Admin Dose 1 CAP; Start 02/22/19 at 13:30 Insulin Aspart (Novolog Insulin Pen) 7 unit WITH MEALS SC Last administered on 02/24/19 12:55; Admin Dose 7 UNIT; Start 02/23/19 at 12:00 Insulin Glargine (Lantus) 17 units DAILY@0800 SC Last administered on 02/24/19at 10:08; Admin Dose 17 UNITS; Start 02/24/19 at 08:00 Linagliptin (Tradjenta) 5 mg DAILY PO Last administered on 02/23/19at 13:18; Admin Dose 5 MG; Start 02/23/19 at 12:00 Diagnostic Test (Pha) (Accu-Chek) 1 ea AC MEALS AND BEDTIME XX ; Start 02/23/19 at 17:30 Acetaminophen (Tylenol Tab) 650 mg Q6H PRN PO MILD PAIN(1-3)OR ELEVATED TEMP; Start 02/23/19 at 12:00 Nifedipine (Procardia Xl) 30 mg BID PO Last administered on 02/24/19at 08:29; Admin Dose 30 MG; Start 02/23/19 at 21:00 Levofloxacin (Levaquin) 750 mg Q48H PO Last administered on 02/24/19at 05:21; Admin Dose 750 MG; Start 02/24/19 at 06:00; Stop 03/04/19 at 12:00 Glipizide (Glucotrol) 5 mg AC BREAKFAST DINNER PO Last administered on 02/23/19at 18:29; Admin Dose 5 MG; Start 02/23/19 at 17:30 Diagnostic Test (Pha) (Accu-Chek) 1 ea AC MEALS AND BEDTIME XX ; Start 02/23/19 at 17:30 Amoxicillin (Amoxicillin) 250 mg Q8 PO Last administered on 02/24/19at 13:04; Admin Dose 250 MG; Start 02/24/19 at 14:00 Fluconazole (Diflucan) 100 mg DAILY PO ; Start 02/24/19 at 09:00 SHAILA FRIAS DPM February 24, 2019 15:03
[2019-02-24 20:14] VITALS: BP 131/64; PULSE 73; RESP 18
== END 2019-02-24 22:00 | disposition home health service (06) | DRG 637 ==
LOC: E/R 09:18 → TEL 11:30 → EDBEDREQSVC 12:03 → EDBEDREQ 12:03 → CANRESERV 02-17 03:56 → EDBEDREQSVC 02-17 08:25 → EDBEDREQ 02-17 08:25 → 5EC 02-19 21:55
PROVIDERS: ADMIT Family Medicine; ATTEND Family Medicine
DX: E11.00 Type 2 diabetes mellitus with hyperosmolarity without nonketotic hyperglycemic-hyperosmolar coma (NKHHC) (principal); G92 Toxic encephalopathy; R65.11 Systemic inflammatory response syndrome (SIRS) of non-infectious origin with acute organ dysfunction; I13.0 Hypertensive heart and chronic kidney disease with heart failure and stage 1 through stage 4 chronic kidney disease, or unspecified chronic kidney disease; N17.9 Acute kidney failure, unspecified; I16.1 Hypertensive emergency; M86.8X7 Other osteomyelitis, ankle and foot; R56.9 Unspecified convulsions; E11.65 Type 2 diabetes mellitus with hyperglycemia; E11.22 Type 2 diabetes mellitus with diabetic chronic kidney disease; N18.9 Chronic kidney disease, unspecified; I50.9 Heart failure, unspecified; I25.10 Atherosclerotic heart disease of native coronary artery without angina pectoris; F32.9 Major depressive disorder, single episode, unspecified; E78.5 Hyperlipidemia, unspecified; I73.9 Peripheral vascular disease, unspecified; E11.621 Type 2 diabetes mellitus with foot ulcer; E11.69 Type 2 diabetes mellitus with other specified complication; E11.610 Type 2 diabetes mellitus with diabetic neuropathic arthropathy; E11.42 Type 2 diabetes mellitus with diabetic polyneuropathy; L97.529 Non-pressure chronic ulcer of other part of left foot with unspecified severity; Z91.14 Patient's other noncompliance with medication regimen; E87.5 Hyperkalemia; E86.0 Dehydration; Z91.11 Patient's noncompliance with dietary regimen
CPT/HCPCS: 36415; 36600; 70450; 70551; 71045; 73610; 73718; 73721; 80048; 80053; 80061; 80307; 81001; 82550; 82553; 82803; 82962; 83036; 83690; 83735; 84100; 84145; 84443; 84484; 85025; 85610; 85651; 85730; 86140; 87070; 87081; 87086; 92610; 93005; 95819; 96372; 96374; 96375; 97116; 97161; 97530; J0360; J1644; J1815; J1953; J1956; J2060; J2405; J2543; J7030; J7120; L3260